=== PATIENT | male | born 1955 | race Caucasian/White ===

== ENCOUNTER → 2023-11-23 | Outpatient (CLI) | payer MEDICARE, OTHER, SELFPAY ==
[2023-11-23 10:35] LABS: Mucous, Urine 0 SEEN /hpf (<or=2+); Squamous Epithelial Cells - UA 0 SEEN /hpf (0-5)
[2023-11-23 10:48] LABS: Glucose, Dipstick Normal (Normal); Ketone-Dipstick 5 mg/dl (Negative); Leukocyte Esterase-Dipstick 100 /ul (Negative); Nitrite-Dipstick Positive (Negative); Occult Blood-Urine 250 /ul (Negative); Protein-Dipstick 500 mg/dl (Negative); Urine Bilirubin Dipstick Negative (Negative); Urine Clarity Cloudy (Clear); Urine Urobilinogen Normal (Normal); Urine pH 6.5 (5.0 - 8.0)
[2023-11-23 10:50] LABS: Color, Urine SEE COMMENT BELOW (Yellow)
[2023-11-23 10:58] LABS: Bacteria 1+ /hpf (None Seen); Red Blood Cells-Urine > 100 SEEN /hpf (0-5); White Blood Cells 10-25 SEEN /hpf (0-5)
== END | disposition home or self-care (01) ==
LOC: LABSPEC 10:09
PROVIDERS: Referring Provider Physician Assistant; Visit Provider Physician Assistant
DX: R30.0 Dysuria (principal)
CPT/HCPCS: 81001; 87086

== ENCOUNTER 2024-01-31 17:12 | Observation (INO) | payer MEDICARE, OTHER, SELFPAY ==
[2024-01-31] VITALS (12 sets, daily range): BP systolic 98–135; BP diastolic 50–79; PULSE 42–63; RESP 12–16; TEMP 36.1–37; O2SAT 97–100; BMI 23.4
--- NOTE | 2024-01-31 10:53 | EKG12_ITS ---
Test Reason : PRE OP Blood Pressure : / mmHG Vent. Rate : 060 BPM Atrial Rate : 060 BPM P-R Int : 170 ms QRS Dur : 074 ms QT Int : 410 ms P-R-T Axes : 018 -30 028 degrees QTc Int : 410 ms Sinus rhythm with Premature supraventricular complexes and with occasional Premature ventricular comp lexes Left axis deviation Abnormal ECG No previous ECGs available Confirmed by Sarabjit De León ([id number]), research editor HI MOORE ([id number]) on 01/31/2024 2:00:34 PM Referred By: Pankaj Lou Confirmed By:Sarabjit De León
--- NOTE | 2024-01-31 12:50 | BLB_PTH ---
PATIENT: BETHANY WILKINS LOC: [facility] U#:[id number] AGE/SX: 68/M ROOM: [facility] RE01/31/[address]: Dr. 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 See cancer summary in the comment section. 02/02/2024 COMMENT BLADDER CANCER (TUR) SUMMARY Procedure: Transurethral resection of bladder tumor (TURBT) Tumor site: Not specified Histologic type: Papillary urothelial carcinoma, invasive Associated epithelial lesions: None identified Histologic grade: High grade Tumor configuration: Papillary and invasive Muscularis propria presence: muscularis propria (detrusor muscle), present and free of tumor Lymph-vascular invasion: Not identified Tumor extension: Tumor invades the lamina propria (subepithelial connective tissue). Additional pathologic findings: Chronic inflammation PATHOLOGIC STAGE: pPT1 pNx pMx The above summary is in compliance with [employer] [place] [employer] (CAP) Cancer Protocols Checklist and [place] Joint Committee on Cancer (AJCC), Staging Manual, 8th Ed. Case has been reviewed in consultation with Dr. Christie who concurs with the above diagnosis. IDC:AM MICROSCOPIC DESCRIPTION Slides are reviewed. GROSS DESCRIPTION Received in fixative is one container labeled with the patient's name and designated Bladder tumor. The specimen consists of multiple fragments of restrepo soft tissue mixed with blood clot that measuring in aggregate 12.0 x 10.0 x 3.5 cm. A few fragments of stones are also noted. Head Up Operator tissue is submitted in fifteen cassettes. 02/01/2024 TC: 0 CPT:67754
--- NOTE | 2024-01-31 13:12 | PCM.PRE.AN2 ---
ASA Classification* ASA Classification ASA Classification: 2 Assessment & Plan Anesthesia* Anesthesia Assessment Anesthesia Assessment: Discussed sedation and/or anesthesia options, risks, benefits, and alternatives with patient/parents/legal guardian/POA. Questions invited. The patient/parents/legal guardian/POA seems to understand and agrees to proceed with anesthesia plan. Reviewed the physical assessment, medical history, allergy history and patient home medications list prior to surgery/procedure/anesthetic and documented any changes. Performed airway and anesthesia risk assessments. Anesthesia Type Anesthesia Type: General History Source History Obtained from:: Patient and Chart Anesthesia Focused Assessment* Temperature: 98.6 F Pulse Rate: 63 Blood Pressure: 135/73 Respiratory Rate: 12 Pulse Ox: 100 Oxygen Delivery Method: Room Air Airway Assessment Mouth opens: >3 cm Mallampati Score: I Teeth Condition: Caps/Crowns (Patient has several crowns they are tight.) Neck Range of motion (ROM): Full ROM Pertinent Findings EKG Pertinent Findings:: January 31, 2024. Sinus rhythm with premature supraventricular complexes and occasional PVCs. Left axis deviation. 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 When Was Last Pacemaker Check QUESTION #4 FULL TEXT: You/Your Family Experience fever (hyperthermia) with Anesthesia Last Oral Intake Last Oral intake: Last Oral Intake NPO since 19:00 01/31/24 10:58 Meds taken in AM with sips of No 01/31/24 10:58 water? Meds patient instructed to take am of surgery PONV PONV - hydrogen power plant manager: PONV - hydrogen power plant manager Female No 01/30/24 13:27 HX of Motion Sickness Yes 01/30/24 13:27 HX of N/V After Surgery No 01/30/24 13:27 Non-Smoker Yes 01/30/24 13:27 Duration of Surgery greater Yes 01/30/24 13:27 than 60 minutes Number of Risk Factors 3 01/30/24 13:27 PONV Score Moderate Risk 01/30/24 13:27 Height & Weight Height & Weight: Anesthesia: Height & Weight Height 5 ft 5 in 01/31/24 10:58 Weight: 64 kg 01/31/24 10:58 Body Mass Index (BMI) 23.4 01/31/24 10:58 Respiratory Assessment Respiratory Assessment - hydrogen power plant manager: Respiratory Tract Infection Hx - hydrogen power plant manager Hx Respiratory Tract Infection No 01/30/24 13:27 STOP Sleep Apnea STOP Sleep Apnea - hydrogen power plant manager: STOP Sleep Apnea - hydrogen power plant manager Hx Hypertension No 01/30/24 13:27 Hx Sleep Apnea No 01/30/24 13:27 CPAP BIPAP Do you snore loudly (louder Yes 01/30/24 13:27 than talking or can be heard Do you often feel tired/ No 01/30/24 13:27 fatigued/ sleepy during daytime? Has anyone observed you stop No 01/30/24 13:27 breathing during sleep? STOP Results Negative 01/30/24 13:27 QUESTION #5 FULL TEXT : Do you snore loudly (louder than talking or can be heard through closed doors)? 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 Specify any problems Hx of Preganancy in last 3 N/A 01/30/24 13:27 Months Nurse Filling Out Transfusion DSCHRIBER 01/30/24 13:27 & Questions: Date: 01/30/24 01/30/24 13:27 Time: 13:28 01/30/24 13:27 Patient unable to answer at this time (ie. confused, unrespo /Reproduction History /Reproductive History - hydrogen power plant manager: /Reproductive Hx- hydrogen power plant manager Hx Now No 01/30/24 13:27 Gestational Age (in weeks): EDC: Hx Hx Para Hx Section SAB No 01/30/24 13:27 Active Medications Active Medications: Current Medications Generic Name Dose Route Start Last Admin Trade Name Freq PRN Reason Stop Dose Admin Lactated Ringer's 1,000 mls @ 15 mls/hr 01/31/24 10:45 IV 02/06/24 00:04 .Q48H ALONDRA Protocol PFSH Medical History Loss of hearing Wears glasses Gout Bladder disease Injury of head and neck Leg cramps Non-smoker Home Medications ?Medication ?Instructions ?Recorded ?Last Taken ?Type NK 01/30/24 Unknown History Allergy/AdvReac Type Severity Reaction Status Date / Time No Known Allergies Allergy Verified 01/31/24 10:56 Surgical History Hx of peritonsillar abscess drainage Hx of tonsillectomy Social History Smoking Status: Never smoker Review of Systems (Anesthesia) ROS Narrative System reviewed and no additional complaints, except as documented.
[2024-01-31] MEDS: Cefazolin 2 GM in Syringe IV (14:34)
--- NOTE | 2024-01-31 17:13 | PCM.HP.STD ---
HPI - General General Date of Service: 01/31/24 Chief Complaint: Bladder cancer HPI Narrative BETHANY WILKINS, is a 68 M who presents for resection of a large bladder cancer occupying almost the entire inside of the bladder. PFSH Medical History Loss of hearing Wears glasses Gout Bladder disease Injury of head and neck Leg cramps Non-smoker Home Medications ?Medication ?Instructions ?Recorded ?Last Taken ?Type NK 01/30/24 Unknown History ciprofloxacin HCl 500 mg tablet 500 mg PO BID #14 tabs 01/31/24 Unknown Rx (Cipro) oxycodone 5 mg tablet 5 mg PO Q6H PRN pain 7 days #14 01/31/24 Unknown Rx tabs Allergy/AdvReac Type Severity Reaction Status Date / Time No Known Allergies Allergy Verified 01/31/24 10:56 Surgical History Hx of peritonsillar abscess drainage Hx of tonsillectomy Social History Smoking Status: Never smoker Vital Signs Vital Signs Vital Signs: 01/31/24 10:58 01/31/24 10:58 01/31/24 13:23 Temperature 98.6 F 98.6 F Temperature Source Temporal Pulse Rate 63 63 Respiratory Rate 12 12 Respiratory Pattern Normal Blood Pressure 135/73 H 135/73 H Blood Pressure Mean 93 Blood Pressure Source Monitor Blood Pressure Position Semi-Fowlers Blood Pressure Location Left Arm Pulse Ox 100 100 Oxygen Delivery Method Room Air Room Air Weight Weight: 64 kg Body Mass Index (BMI) 23.4
--- NOTE | 2024-01-31 17:13 | PCM.DC ---
Discharge Instructions Diet Discharge Diet: No restrictions Activity Discharge Activity: Return to Normal Activity and May Not Drive (while taking narcotic pain medications.) Dressing / Incision Call your doctor if you observe: Fever of 101 or Higher Catheter: Fung to leg bag and Fung to large bag Drain: Coulter Follow Up Care Please Follow Up With: Pankaj Lou MD When: Call [phone] for an appointment Test Results: Test results from this visit will be discussed in further detail at your follow-up appointment, if applicable. Discharge Plan Admission Primary Reason for Your Visit: Large bladder mass Attending Provider: Pankaj Lou Primary Care Provider: Seth Lozano NP Instructions Patient Instructions: Bladder Cancer TUR Print Language: [place] Discharge Orders/Prescriptions Prescriptions: New ciprofloxacin HCl [Cipro] 500 mg tablet 500 mg PO BID Qty: 14 0RF oxycodone 5 mg tablet 5 mg PO Q6H PRN (Reason: pain) 7 Days Qty: 14 0RF No Action NK Referrals / Follow Up: Pankaj Lou MD [Med Staff - Active Staff] - Seth Lozano NP, CLAIM REVIEW MEDICAL DIRECTOR-C [Primary Care Provider] - Disposition Disposition (needs filled in before D/C Order can be placed): Home, Self Care
--- NOTE | 2024-01-31 17:19 | OP.PCM_ITS ---
Report of Operation Date of Procedure: 01/31/24 Pre-Operative Diagnosis: Very large bladder tumor greater than 5 cm in size occ upying most of the inside of the bladder Post-Operative Diagnosis: The same Surgery/Procedure Performed:: Transurethral resection of extensively large tumor in the bladder Description of Surgical Findings:: This is a 68-year-old male who states he is just recently started having some bleeding but he is again extremely large tumor in his bladder seen on ultrasound today organ had attempted do a complete resection of this tumor I explained to the patient may not be possible to do a complete resection this might be an invasive tumor he might need multiple procedures and this may not be curative for his cancer but organ to proceed with an extensive resection of the bladder tumor organ attempted due for resection. 68-year-old male was taken back to the operating room and a smooth induction of general anesthesia he is placed in dorsolithotomy position. The penis and testicles were prepped and draped in usual sterile fashion I went into the bladder with a 26 [place] continuous-flow resectoscope again it was just like a storm of tumor all around the resectoscope very difficult to even see the edge of where to start resecting finally on the floor I got started on the edge and started resecting toward the midline as I was resecting the tumor everything was going fairly well but then as I got deeper and deeper into the tumor then encountered some significant bleeding and started having heavy bleeding during the resection this made the resection extremely more difficult as a Resecting at I Used Irrigation and Also Use Suction on the Resectoscope to Help with the Visualization but Again We Had Significant Bleeding during the Resection Making It Very Difficult Took a Long Time to Do the Resection. But at the End I Think I Got like 90% of the Tumor out There Is Still May Be Some Tumor Still Left in the Bladder Difficult to Tell If I Did a Complete Resection Could Be Muscle- Invasive Is Difficult to Tell There Was No Way to Identify the Left Ureteral Orifice Because It Was Completely Involved the Right Ureter Orifice Was Also Hard to See. I Then Cauterized Extensively I Used the Button Took a Long Time to Get Hemostasis to Make Sure That There Was Good Hemostasis and That the End of the Resection Then Went to the 24 [place] Catheter in the Bladder and Continuous Bladder Irrigation He Will Be Kept in the Hospital Overnight for Continuous Irrigation Again a Very Long Resection Time Very Long Cauterization Time in Order to Control the Bleeding and We Will Check His Hematocrit and PACU. Surgeon: Pankaj Lou Type of Anesthesia: General Specimen's removed: bladder tumor large Drains: [address] Estimated Blood Loss (mL): 500 Procedure Start Time: 14:34 Procedure Stop Time: 17:19 Admit VTE Documentation VTE Present on Admission: No VTE Mechan Device Prophylaxis: SCD's VTE Pharm Prophylaxis ordered?: No
--- NOTE | 2024-01-31 17:21 | PCM.POST.ANE ---
Anesthesia: Postop Eval I Current Vital Signs Temperature: 97 F Pulse Rate: 63 Blood Pressure: 100/75 Respiratory Rate: 14 Pulse Ox: 98 Oxygen Delivery Method: Room Air Assessment Airway patent: Yes Spontaneous unlabored respirations: Yes Mental status: Awake and Calm nausea: No Vomiting: No Anesthesia Complication: No Fluid Hydration Crystalloid volume administer (ml): 2,200 Total IV fluid infused: 2,200 Progress Note Anesthesia document: Postop Eval 1 completed: Yes
[2024-01-31 18:03] LABS: Anion Gap 6 (5-15); BUN 19 mg/dL (7-18); BUN/Creat Ratio 18.1 RATIO (10-20); Calcium,Total 8.5 mg/dL (8.5-10.1); Chloride 111 mmol/L (98-107); Creatinine, Serum 1.05 mg/dL (0.70-1.30); EST Glomerular Filtration Rate 75 mL/min (>60); Est Glom Filt Rate - Afr Amer 90 mL/min (>60); Estimated Creatinine Clearance 58.57 ml/min; Glucose 136 mg/dL (74-106); Hemoglobin 12.6 g/dL (13.0-16.5); Mean Corpuscular Hgb 31.5 pg (27.0-32.0); Mean Platelet Vol. 9.5 fl (6.2-12.0); Platelet Count 230 K/mm3 (150-450); Potassium 3.7 mmol/L (3.5-5.1); RBC Distribution Width CV 12.9 % (11.6-14.6); RBC Distribution Width SD 42.5 fl (35.1-43.9); Sodium Level 141 mmol/L (136-145); White Blood Count 8.6 K/mm3 (4.4-11.0)
[2024-01-31] MEDS: Acetaminophen 325 MG Tablet 650 MG PO (19:49)
[2024-01-31] MEDS: Ciprofloxacin 400 MG/200 ML BAG 200 MG IV (21:51)
[2024-01-31] MEDS: Docusate Sodium 100 MG Capsule 200 MG PO (21:51)
--- NOTE | 2024-02-01 01:32 | POSTOPAN2_ITS ---
Anesthesia Postop Eval I Sum Postop Eval Completion status Anesthesia document: Postop Eval 1 completed: Yes Anesthesia Postop Eval I Summary Anesthesia Postop Eval I Summary: Anesthesia Postop Eval I: Assessment Summary Airway patent Yes 01/31/24 17:22 [email or web address] Spontaneous unlabored Yes 01/31/24 17:22 [email or web address] respirations Mental status Awake,Calm 01/31/24 17:22 [email or web address] nausea No 01/31/24 17:22 [email or web address] Vomiting No 01/31/24 17:22 [email or web address] Anesthesia Postop Eval I: Fluid Summary Crystalloid volume administer 2,200 01/31/24 17:22 [email or web address] (ml) Colloids volume administered ( ml) Blood Product volume administered (ml) Total IV fluid infused 2,200 01/31/24 17:22 [email or web address] Anesthesia Postop Eval I: Summary Notes Anesthesia Complication No 01/31/24 17:22 [email or web address] Anesthesia Complication Comment: Post-operative progress note Anesthesia: Postop Eval II Evaluation Mental status: Awake and Calm Pain Level: 1 nausea: No Vomiting: No Complications Anesthesia Complication: No
--- NOTE | 2024-02-01 01:32 | PCM.POSTANE2 ---
Anesthesia Postop Eval I Sum Postop Eval Completion status Anesthesia document: Postop Eval 1 completed: Yes Anesthesia Postop Eval I Summary Anesthesia Postop Eval I Summary: Anesthesia Postop Eval I: Assessment Summary Airway patent Yes 01/31/24 17:22 [email or web address] Spontaneous unlabored Yes 01/31/24 17:22 [email or web address] [email or web address] respirations Mental status Awake,Calm 01/31/24 17:22 [email or web address] nausea No 01/31/24 17:22 [email or web address] Vomiting No 01/31/24 17:22 [email or web address] Anesthesia Postop Eval I: Fluid Summary Crystalloid volume administer 2,200 01/31/24 17:22 [email or web address] (ml) Colloids volume administered ( ml) Blood Product volume administered (ml) Total IV fluid infused 2,200 01/31/24 17:22 [email or web address] Anesthesia Postop Eval I: Summary Notes Anesthesia Complication No 01/31/24 17:22 [email or web address] Anesthesia Complication Comment: Post-operative progress note Anesthesia: Postop Eval II Evaluation Mental status: Awake and Calm Pain Level: 1 nausea: No Vomiting: No Complications Anesthesia Complication: No
[2024-02-01] MEDS: Acetaminophen 325 MG Tablet 650 MG PO (02:55)
[2024-02-01 03:14] VITALS: BP 104/60; PULSE 57; RESP 16; TEMP 36.3; O2SAT 99
[2024-02-01 06:44] LABS: Hematocrit 31.7 % (40-54); Hemoglobin 11.2 g/dL (13.0-16.5); Mean Corp Hgb Conc 35.3 g/dL (32-36); Mean Corpuscular Hgb 31.5 pg (27.0-32.0); Mean Corpuscular Volume 89.3 fL (80-94); Mean Platelet Vol. 9.6 fl (6.2-12.0); Platelet Count 215 K/mm3 (150-450); RBC Distribution Width CV 13.1 % (11.6-14.6); RBC Distribution Width SD 43.1 fl (35.1-43.9); Red Blood Count 3.55 M/mm3 (4.6-6.2); White Blood Count 11.8 K/mm3 (4.4-11.0)
[2024-02-01 07:18] LABS: Anion Gap 6 (5-15); BUN 25 mg/dL (7-18); BUN/Creat Ratio 26.3 RATIO (10-20); Calcium,Total 8.5 mg/dL (8.5-10.1); Chloride 111 mmol/L (98-107); Creatinine, Serum 0.95 mg/dL (0.70-1.30); EST Glomerular Filtration Rate 83 mL/min (>60); Est Glom Filt Rate - Afr Amer 101 mL/min (>60); Estimated Creatinine Clearance 64.74 ml/min; Glucose 122 mg/dL (74-106); Potassium 4.2 mmol/L (3.5-5.1); Sodium Level 140 mmol/L (136-145)
[2024-02-01] MEDS: Docusate Sodium 100 MG Capsule 200 MG PO (07:56)
[2024-02-01] MEDS: 0.9% Saline Lock 10 ML Syringe IV (09:58)
[2024-02-01] MEDS: Ciprofloxacin 400 MG/200 ML BAG 200 MG IV (09:58)
[2024-02-01 14:34] VITALS: BP 117/70; PULSE 64; RESP 18; TEMP 36.7; O2SAT 99
--- NOTE | 2024-02-01 15:28 | CASEMGMT ---
Addendum entered by Moy Farooq 02/01/24 15:35: Per , they have scheduled an appt with Dr Lou for 02/14 @ 0900. This was added to pt's discharge plan. Original Note: HOSEA GONZALEZ note: HOSEA GONZALEZ to room. Pt resting in bed, @ bedside. Pt states he has not had education on FC yet, but is willing to learn. RNSimona, aware and will provide education. Pt states he has not been OOB today yet. He was made aware someone would be in to assist him w/getting up. Simona aware of same as well. Pt states he is independent @ home. Pt and deny having other discharge needs/concerns. Kalina ELLIOTT RN, CM
--- NOTE | 2024-02-01 15:46 | CASEMGMT ---
Met with patient to complete RUBIO form. RUBIO form explained to patient who voiced understanding and signed form. Original form placed in pt?s chart and copy provided to patient. Bree Young, Discharge Planning Asst
--- NOTE | 2024-02-01 17:51 | PCM.PN.GU ---
Subjective Subjective s/p resection of a very difficult and large tumor from his bladder bleeding has stopped home with cage follow up in my office to remove cage Objective Data Objective Data Vital Signs: Vital Signs Temp Pulse Resp BP Pulse Ox O2 Del Method 98.1 F 64 18 117/70 99 Room Air 02/01/24 14:34 02/01/24 14:34 02/01/24 14:34 02/01/24 14:34 02/01/24 14:34 02/01/24 14:34 Oxygen Delivery Method Room Air Weight: 64 kg Body Mass Index (BMI) 23.4 Intake & Output: Intake and Output for Last 24 Hours 01/30/24 01/31/24 02/01/24 23:59 23:59 23:59 Intake Total 460 / 460 440 / 440 Output Total 6400 / 6400 2100 / 2100 Balance -5940 / -5940 -1660 / -1660 Lab / Micro Data 02/01/24 06:37 02/01/24 06:37 Labs: Laboratory Results - last 24 hr 01/31/24 17:27: WBC 8.6, RBC 4.00 L, Hgb 12.6 L, Hct 36.0 L, MCV 90.0, MCH 31.5, MCHC 35.0, RDW Std Deviation 42.5, RDW Coeff of Lori 12.9, Plt Count 230, MPV 9.5, Sodium 141, Potassium 3.7, Chloride 111 H, Carbon Dioxide 24.0, Anion Gap 6, BUN 19 H, Creatinine 1.05, Estim Creat Clear Calc 58.57, Est GFR (MDRD) Af Amer 90, Est GFR (MDRD) Non-Af 75, BUN/Creatinine Ratio 18.1, Glucose 136 H, Calcium 8.5 02/01/24 06:37: WBC 11.8 H, RBC 3.55 L, Hgb 11.2 L, Hct 31.7 L, MCV 89.3, MCH 31.5, MCHC 35.3, RDW Std Deviation 43.1, RDW Coeff of Lori 13.1, Plt Count 215, MPV 9.6, Sodium 140, Potassium 4.2, Chloride 111 H, Carbon Dioxide 23.0, Anion Gap 6, BUN 25 H, Creatinine 0.95, Estim Creat Clear Calc 64.74, Est GFR (MDRD) Af Amer 101, Est GFR (MDRD) Non-Af 83, BUN/Creatinine Ratio 26.3 H, Glucose 122 H, Calcium 8.5
== END 2024-02-01 18:23 | disposition home or self-care (01) ==
LOC: SDC 17:41 → MS3 17:41
PROVIDERS: Admitting Provider Urology; PCP Nurse Practitioner Family; Referring Provider Urology; Visit Provider Urology
PROC: 0TBB8ZZ Excision of Bladder, Via Natural or Artificial Opening Endoscopic (ICD-10-PCS; CPT 52240; principal; 2024-01-31 12:40)
DX: C67.8 Malignant neoplasm of overlapping sites of bladder (principal); N13.39 Other hydronephrosis; R94.31 Abnormal electrocardiogram [ECG] [EKG]; I49.1 Atrial premature depolarization
CPT/HCPCS: 52240; 00912; 36415; 80048; 85027; 88307; 93005; 94668; 96365; 96366; 99221; J7120; A4216; G0378; J0744; J2405

== ENCOUNTER 2024-03-13 09:25 | Day surgery (SDC) | payer MEDICARE, OTHER, SELFPAY ==
[2024-03-13] VITALS (11 sets, daily range): BP systolic 122–151; BP diastolic 73–81; PULSE 50–70; RESP 16–18; TEMP 36.2–36.8; O2SAT 98–100; BMI 23.1
--- NOTE | 2024-03-13 | BLB_PTH ---
PATIENT: BETHANY WILKINS LOC: [facility] [place] U#:[id number] AGE/SX: 68/M ROOM: RE03/13/[address]: Dr. Pankaj Lou MD : 1955 BED: DIS: 03/13/2024 SPEC #: [id number] RECD: 03/13/24 13:42 STATUS: CLARA RECody #: [id number] RADHA: 03/13/24 00:[address]: Pankaj Lou DEPT: SURGICAL PATHOLOGY RECD BY: Aditya Jesus ENTERED: 03/13/24 13:42 SP TYPE: TURB OTHR DR: Seth Lozano, PHYSIOTHERAPY PRACTICE MANAGER-C Tissues: Urinary bladder, NOS Procedures: Surgery Specimen Level V HEADER OPERATION: Transurethral resection bladder tumor PRE-OP DIAGNOSIS: Bladder cancer TISSUE SUBMITTED: Bladder tumor MICROSCOPIC DIAGNOSIS Urinary bladder tumor, transurethral resection: Invasive high grade urothelial carcinoma. See cancer template below. AM.mr 03/15/2024 COMMENT BLADDER CANCER (TUR) SUMMARY Procedure: Transurethral resection of bladder tumor (TURBT) Tumor site: Not specified Histologic type: Invasive High grade urothelial carcinoma Associated epithelial lesions: None identified Histologic grade: 3/3 (WHO high grade) Tumor configuration: Papillary and non-papillary Muscularis propria presence: Present and infiltrating by carcinoma Lymphvascular invasion: Not identified Tumor extension: Tumor invades into detrusor muscle. Additional pathologic findings: Extensive tumor cell necrosis. PATHOLOGIC STAGE: T2 Nx Mx The above summary is in compliance with [employer] [place] [employer] (CAP) Cancer Protocols Checklist and [place] [employer] Committee on Cancer (AJCC), Staging Manual, 8th Ed. MICROSCOPIC DESCRIPTION Slides are reviewed. GROSS DESCRIPTION Received in fixative is one container labeled with the patient's name and designated Bladder tumor. The specimen consists of multiple irregular and friable fragments of restrepo-pink soft tissue that in aggregate measure 5.0 x 4.0 x 0.6 cm. The specimen is submitted in its entirety in ten cassettes. AM. 03/13/2024 TC: 0 [facility]:[id number]
[2024-03-13] MEDS: MitoMYcin 40 MG in Syringe 1 EACH 2400 MG INSTILLAT (07:30)
--- NOTE | 2024-03-13 09:52 | PRE.ANES_ITS ---
ASA Classification* ASA Classification ASA Classification: 2 Assessment & Plan Anesthesia* Anesthesia Assessment Anesthesia Assessment: Discussed sedation and/or anesthesia options, risks, benefits, and alternatives with patient/parents/legal guardian/POA. Questions invited. The patient/parents/legal guardian/POA seems to understand and agrees to proceed with anesthesia plan. Reviewed the physical assessment, medical history, allergy history and patient home medications list prior to surgery/procedure/anesthetic and documented any changes. Performed airway and anesthesia risk assessments. Anesthesia Type Anesthesia Type: General Anesthesia Focused Assessment* Airway Assessment Mouth opens: >3 cm Mallampati Score: II Focused Labs Anesthesia Preop lab: CBC WBC 11.8 K/mm3 (4.4-11.0) H 02/01/24 06:37 RBC 3.55 M/mm3 (4.6-6.2) L 02/01/24 06:37 Hgb 11.2 g/dL (13.0-16.5) L 02/01/24 06:37 Hct 31.7 % (40-54) L 02/01/24 06:37 Plt Count 215 K/mm3 (150-450) 02/01/24 06:37 CHEMISTRY Potassium 4.2 mmol/L (3.5-5.1) 02/01/24 06:37 Sodium 140 mmol/L (136-145) 02/01/24 06:37 BUN 25 mg/dL (7-18) H 02/01/24 06:37 Creatinine 0.95 mg/dL (0.70-1.30) 02/01/24 06:37 Glucose 122 mg/dL (74-106) H 02/01/24 06:37 COAG Pre-Assessment Diagnosis/Proposed Procedure Planned Operative Procedure(s): TURBT LARGE MITOMYCIN C 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 When Was Last Pacemaker Check QUESTION #4 FULL TEXT: You/Your Family Experience fever (hyperthermia) with Anesthesia Last Oral Intake Last Oral intake: Last Oral Intake NPO since Meds taken in AM with sips of water? Meds patient instructed to take am of surgery PONV PONV - corporate sales manager: PONV - corporate sales manager Female No 02/28/24 13:51 HX of Motion Sickness Yes 02/28/24 13:51 HX of N/V After Surgery No 02/28/24 13:51 Non-Smoker Yes 02/28/24 13:51 Duration of Surgery greater Yes 02/28/24 13:51 than 60 minutes Number of Risk Factors 3 02/28/24 13:51 PONV Score Moderate Risk 02/28/24 13:51 Height & Weight Height & Weight: Anesthesia: Height & Weight Height 5 ft 5 in 01/31/24 18:37 Respiratory Assessment Respiratory Assessment - corporate sales manager: Respiratory Tract Infection Hx - corporate sales manager Hx Respiratory Tract Infection No 02/28/24 13:51 STOP Sleep Apnea STOP Sleep Apnea - corporate sales manager: STOP Sleep Apnea - corporate sales manager Hx Hypertension No 02/28/24 13:51 Hx Sleep Apnea No 02/28/24 13:51 CPAP BIPAP Do you snore loudly (louder No 02/28/24 13:51 than talking or can be heard Do you often feel tired/ No 02/28/24 13:51 fatigued/ sleepy during daytime? Has anyone observed you stop No 02/28/24 13:51 breathing during sleep? STOP Results Negative 02/28/24 13:51 QUESTION #5 FULL TEXT : Do you snore loudly (louder than talking or can be heard through closed doors)? Tobacco Use History Tobacco Use History - corporate sales manager: Tobacco Use History - corporate sales manager Tobacco Use Smoking Status Never smoker 02/28/24 13:51 Hx Tobacco Use No 02/28/24 13:51 Years Smoking Packs Smoked per Day Smoking Cessation Date was within the last 15 years Hx Smoking Cessation Date Hx Smoking Cessation Counseling Hematologic Medial History Hematologic Hx - corporate sales manager: Hematologic Medical Hx - crossing tender Hx of Blood Transfusion No 02/28/24 13:51 Hx of Transfusion in last 3 No 02/28/24 13:51 Months Date of Last Transfusion (if within last 3 months) Ever experience any problems No 02/28/24 13:51 with transfusion(s)? Specify any problems Hx of Preganancy in last 3 N/A 02/28/24 13:51 Months Nurse Filling Out Transfusion DSCHRIBER 02/28/24 13:51 & Questions: Date: 02/28/24 02/28/24 13:51 Time: 13:54 02/28/24 13:51 Patient unable to answer at this time (ie. confused, unrespo /Reproduction History /Reproductive History - corporate sales manager: /Reproductive Hx- corporate sales manager Hx Now No 02/28/24 13:51 Gestational Age (in weeks): EDC: Hx Hx Para Hx Section SAB No 02/28/24 13:51 Active Medications Active Medications: Current Medications Generic Name Dose Route Start Last Admin Trade Name Freq PRN Reason Stop Dose Admin Cefazolin Sodium 2 gm/ N/A 20 mls @ 400 mls/hr 03/13/24 12:55 IV 03/13/24 12:57 PREOP ONE Lactated Ringer's 1,000 mls @ 15 mls/hr 03/13/24 09:45 IV 03/18/24 23:04 .Q48H ALONDRA Protocol PFSH Medical History Loss of hearing Wears glasses Gout Bladder disease Injury of head and neck Leg cramps Non-smoker Home Medications ?Medication ?Instructions ?Recorded ?Last Taken ?Type tamsulosin 0.4 mg capsule 0.4 mg PO QHS 02/28/24 03/11/24 History Allergy/AdvReac Type Severity Reaction Status Date / Time No Known Allergies Allergy Verified 03/13/24 09:50 Surgical History History of transurethral resection of bladder tumor (TURBT) Hx of peritonsillar abscess drainage Hx of tonsillectomy Social History Smoking Status: Never smoker Review of Systems (Anesthesia) ROS Narrative System reviewed and no additional complaints, except as documented.
[2024-03-13] MEDS: Lactated Ringers 1,000 ML 15 ML IV (09:59)
--- NOTE | 2024-03-13 11:02 | PCM.HP.STD ---
HPI - General General Date of Service: 03/13/24 Chief Complaint: Bladder cancer HPI Narrative BETHANY WILKINS, is a 68 M who presents for a second stage reresection of bladder cancer had a very large tumor initially and we do another resection for this tumor PFSH Medical History Loss of hearing Wears glasses Gout Bladder disease Injury of head and neck Leg cramps Non-smoker Home Medications ?Medication ?Instructions ?Recorded ?Last Taken ?Type tamsulosin 0.4 mg capsule 0.4 mg PO QHS 02/28/24 03/11/24 History ciprofloxacin HCl 500 mg tablet 500 mg PO BID #10 tabs 03/13/24 Unknown Rx (Cipro) oxycodone 5 mg tablet 5 mg PO Q6H PRN pain 7 days #14 03/13/24 Unknown Rx tabs Allergy/AdvReac Type Severity Reaction Status Date / Time No Known Allergies Allergy Verified 03/13/24 09:50 Surgical History History of transurethral resection of bladder tumor (TURBT) Hx of peritonsillar abscess drainage Hx of tonsillectomy Social History Smoking Status: Never smoker Vital Signs Vital Signs Vital Signs: 03/13/24 09:52 03/13/24 09:52 Temperature 98.2 F Temperature Source Temporal Pulse Rate 70 Respiratory Rate 16 Respiratory Pattern Normal Blood Pressure 129/74 H Blood Pressure Mean 92 Blood Pressure Source Monitor Blood Pressure Position Sitting Blood Pressure Location Right Arm Pulse Ox 100 Oxygen Delivery Method Room Air Weight Weight: 63 kg Body Mass Index (BMI) 23.1
--- NOTE | 2024-03-13 11:03 | DCINST_ITS ---
Discharge Instructions Diet Discharge Diet: No restrictions, Light diet - advance as tolerated and Soft diet DC O2, CPAP, BIPAP needs Additional Home O2 Discharge instructions: No Dressing / Incision Discharge Activity: Return to Normal Activity Return to work on:: 03/18/24 May shower in (days): 1 Dressing / Incision Call your doctor if your incision/area has: Sudden Increased Bleeding Call your doctor if you observe: Uncontrolled pain Suture Line Care: Avoid Pulling/Pushing and Avoid Pinching/Bending Follow Up Care Please Follow Up With: Pankaj Lou MD When: 2 weeks Test Results: Test results from this visit will be discussed in further detail at your follow- up appointment, if applicable. Discharge Plan Admission Primary Reason for Your Visit: resection of bladder tumor Attending Provider: Pankaj Lou Primary Care Provider: Seth Lozano NP Instructions Print Language: Sami Discharge Orders/Prescriptions Prescriptions: New ciprofloxacin HCl [Cipro] 500 mg tablet 500 mg PO BID Qty: 10 0RF oxycodone 5 mg tablet 5 mg PO Q6H PRN (Reason: pain) 7 Days Qty: 14 0RF No Action tamsulosin 0.4 mg capsule 0.4 mg PO QHS Referrals / Follow Up: Pankaj Lou MD [Med Staff - Active Staff] - Seth Lozano NP, CONCRETE STONE FINISHING SUPERVISOR-C [Primary Care Provider] - Disposition Disposition (needs filled in before D/C Order can be placed): Home, Self Care
[2024-03-13] MEDS: Cefazolin 2 GM in Syringe IV (11:23)
--- NOTE | 2024-03-13 12:01 | PCM.OPRPT ---
Operative Report (Standard) Operative Information Surgery/Procedure Performed: Transurethral resection of a large bladder mass second resection Surgeon: Pankaj Lou Date of Procedure: 03/13/24 Procedure Start Time: Procedure Stop Time: : Pre-Operative Diagnosis: Large bladder mass appears invasive Post-Operative Diagnosis: Large bladder mass appears invasive Select all DRAINS/GRAFTS/IMPLANTS that apply: Drains Drain details: Temporary Fung catheter afterwards Type of Anesthesia: General Special Medications: Mitomycin-C instillation Estimated Blood Loss: None Specimen collected: Yes Description of specimen(s) removed: Bladder tumor fragments Description of surgery: Patient was taken back to the operating room, this is a 68-year-old male who has a history of gross hematuria for a long time and finally came in for medical care spine to have a very large tumor in his bladder I did initial resection a few weeks ago this is a very difficult resection had a lot of bleeding during this time so I knew that I did not get complete resection also I knew that I did not get deep enough into the muscle. On initial resection it was considered a high-grade T1 disease and the pathology report said no invasion of the muscle I would suspect that this might not be accurate. So today working to come back and do a reresection Patient was taken back to the operating room at this with induction of anesthesia he was placed upon on the table in the bladder with a 26 [place] continuous-flow resectoscope entire length the urethra was clear the sphincter was clear got inside the bladder prostate was slightly enlarged and I immediately in the posterior wall of the bladder there was a very ugly looking mass still in the back of the bladder which was look deep into the muscle I started resecting this mass it looks like an invasive tumor into the muscle resected quite deep got a lot of tissue out. I then cauterized extensively certainly was not a complete resection there is no way got all this tumor out this look like a muscle invasive tumor I am going to refer him out for a second opinion but I think he probably would need aggressive treatment to control his cancer. I let his know the findings he was given chemo treatment afterwards in the bladder and he will go home today after he urinates. Tumor sizes very large about 5 x 5 x 5 cm and posterior wall the bladder Surgical Findings: In the posterior aspect of the bladder he still had a very large invasive looking tumor that looks like is going deep into the muscle the bladder resected fairly deep Level Vial Inspector And Tester mothers helper: No Complications Complications: No Admit VTE Documentation VTE Present on Admission: No VTE Mechan Device Prophylaxis: SCD's VTE Pharm Prophylaxis ordered?: No
--- NOTE | 2024-03-13 12:12 | PCM.POST.ANE ---
Anesthesia: Postop Eval I Current Vital Signs Temperature: 97.8 F Pulse Rate: 56 Blood Pressure: 134/79 Respiratory Rate: 16 Pulse Ox: 100 Oxygen Delivery Method: Room Air Assessment Airway patent: Yes Spontaneous unlabored respirations: Yes Mental status: Awake and Calm nausea: No Vomiting: No Anesthesia Complication: No Fluid Hydration Crystalloid volume administer (ml): 700 Total IV fluid infused: 700 Progress Note Anesthesia document: Postop Eval 1 completed: Yes
[2024-03-13] MEDS: Ketorolac 15 MG/ML Vial IV (12:27)
--- NOTE | 2024-03-13 12:42 | POSTOPAN2_ITS ---
Anesthesia Postop Eval I Sum Postop Eval Completion status Anesthesia document: Postop Eval 1 completed: Yes Anesthesia Postop Eval I Summary Anesthesia Postop Eval I Summary: Anesthesia Postop Eval I: Assessment Summary Airway patent Yes 03/13/24 12:13 DATA COMMUNICATIONS ENGINEER.GDOTT Spontaneous unlabored Yes 03/13/24 12:13 DATA COMMUNICATIONS ENGINEER.GDOTT respirations Mental status Awake,Calm 03/13/24 12:13 DATA COMMUNICATIONS ENGINEER.GDOTT nausea No 03/13/24 12:13 DATA COMMUNICATIONS ENGINEER.GDOTT Vomiting No 03/13/24 12:13 DATA COMMUNICATIONS ENGINEER.GDOTT Anesthesia Postop Eval I: Fluid Summary Crystalloid volume administer 700 03/13/24 12:13 DATA COMMUNICATIONS ENGINEER.GDOTT (ml) Colloids volume administered ( ml) Blood Product volume administered (ml) Total IV fluid infused 700 03/13/24 12:13 DATA COMMUNICATIONS ENGINEER.GDOTT Anesthesia Postop Eval I: Summary Notes Anesthesia Complication No 03/13/24 12:13 DATA COMMUNICATIONS ENGINEER.GDOTT Anesthesia Complication Comment: Post-operative progress note Anesthesia: Postop Eval II Evaluation Mental status: Awake Pain Level: 0 nausea: No Vomiting: No
--- NOTE | 2024-03-13 12:42 | PCM.POSTANE2 ---
Anesthesia Postop Eval I Sum Postop Eval Completion status Anesthesia document: Postop Eval 1 completed: Yes Anesthesia Postop Eval I Summary Anesthesia Postop Eval I Summary: Anesthesia Postop Eval I: Assessment Summary Airway patent Yes 03/13/24 12:13 WORKFORCE SERVICES REPRESENTATIVE.GDOTT Spontaneous unlabored Yes 03/13/24 12:13 WORKFORCE SERVICES REPRESENTATIVE.GDOTT respirations Mental status Awake,Calm 03/13/24 12:13 WORKFORCE SERVICES REPRESENTATIVE.GDOTT nausea No 03/13/24 12:13 WORKFORCE SERVICES REPRESENTATIVE.GDOTT Vomiting No 03/13/24 12:13 WORKFORCE SERVICES REPRESENTATIVE.GDOTT Anesthesia Postop Eval I: Fluid Summary Crystalloid volume administer 700 03/13/24 12:13 WORKFORCE SERVICES REPRESENTATIVE.GDOTT (ml) Colloids volume administered ( ml) Blood Product volume administered (ml) Total IV fluid infused 700 03/13/24 12:13 WORKFORCE SERVICES REPRESENTATIVE.GDOTT Anesthesia Postop Eval I: Summary Notes Anesthesia Complication No 03/13/24 12:13 WORKFORCE SERVICES REPRESENTATIVE.GDOTT Anesthesia Complication Comment: Post-operative progress note Anesthesia: Postop Eval II Evaluation Mental status: Awake Pain Level: 0 nausea: No Vomiting: No
--- NOTE | 2024-03-13 13:07 | SUR.PHASEI ---
cage catheter unclamped at 1245. cage removed at 1255.
== END 2024-03-13 15:23 | disposition home or self-care (01) ==
LOC: SDC 09:25 → AC 09:26
PROVIDERS: PCP Nurse Practitioner Family; Referring Provider Urology; Visit Provider Urology
PROC: 0T5B8ZZ Destruction of Bladder, Via Natural or Artificial Opening Endoscopic (ICD-10-PCS; CPT 51720; principal; 2024-03-13 11:15)
DX: C67.9 Malignant neoplasm of bladder, unspecified (principal)
CPT/HCPCS: 52240; 00912; 88307; J7120; J9280; J2405

== ENCOUNTER → 2024-04-11 | Outpatient (CLI) | payer MEDICARE, OTHER, SELFPAY ==
--- NOTE | 2024-04-11 08:16 | CT_ITS ---
STUDY: CT CHEST, ABDOMEN T PELVIS WITH CONTRAST REASON FOR EXAM: Male, 68 years old. STAGING-BLADDER CA RADIATION DOSAGE (If Supplied By Facility): CTDIvol = ( 11.68 ) mGy, DLP = ( 1407.33 ) mGycm TECHNIQUE: Transaxial imaging was performed following intravenous administration of IV 100mL Isovue-300. Individualized dose optimization techniques were used for this CT. COMPARISON: No relevant priors. FINDINGS: CHEST Mild bilateral apical scarring. No noncalcified nodule or mass. There is no demonstrated pleural abnormality. Normal heart and pericardium. Normal mediastinum. Normal hilar regions. Normal unenhanced pulmonary arteries. Normal aorta arch and descending thoracic aorta. Normal osseous structures. There is no demonstrated abnormality of the visualized upper abdomen. ABDOMEN The visualized lung bases are unremarkable. The visualized portions of the heart are within normal limits. Normal liver. Normal gallbladder and extrahepatic biliary system. Normal spleen. Normal pancreas. Normal bilateral adrenal glands. Normal right kidney. Normal left kidney. Normal visualized stomach. Normal small intestine. Normal colon. The appendix is visualized and appears normal. Normal abdominal aorta. Normal inferior vena cava. Normal retroperitoneum. Normal abdominal wall. 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 5 mm of anterolisthesis of L5 on S1 consistent with grade 1 spondylolisthesis. PELVIS Irregular wall thickening of the left side of the bladder consistent with known bladder cancer. Normal visualized small intestine. Normal visualized colon. There is no pelvic fluid. There is no pelvic lymphadenopathy or mass lesion. Normal visualized pelvic arteries. Normal abdominal wall. Normal osseous structures. CT/CT Chest, Abd, Pel w/Contrast IMPRESSION: Known bladder cancer the left side of the bladder without ureteral obstruction, lymphadenopathy, or distant metastasis. Electronically Signed: Seth Beckford MD at 12:07 [facility] ,
== END | disposition home or self-care (01) ==
LOC: CT 08:13
PROVIDERS: PCP Nurse Practitioner Family; Referring Provider Internal Medicine Medical Oncology; Visit Provider Internal Medicine Medical Oncology
DX: C67.8 Malignant neoplasm of overlapping sites of bladder (principal)
CPT/HCPCS: 71260; 74177; Q9967

== ENCOUNTER → 2024-04-30 | Outpatient (CLI) | payer MEDICARE, OTHER, SELFPAY ==
[2024-04-30 11:31] LABS: Platelet Count 226 K/mm3 (150-450)
[2024-04-30 11:42] LABS: International Normalized Ratio 0.9; Prothrombin Time (Protime)PT. 12.6 SECONDS (11.7-14.9)
== END | disposition home or self-care (01) ==
LOC: PAVLAB 11:15
PROVIDERS: PCP Nurse Practitioner Family; Referring Provider Internal Medicine Critical Care Medicine; Visit Provider Internal Medicine Critical Care Medicine
DX: R94.2 Abnormal results of pulmonary function studies (principal)
CPT/HCPCS: 36415; 85049; 85610

== ENCOUNTER 2024-05-10 09:58 | Day surgery (SDC) | payer MEDICARE, OTHER, SELFPAY ==
--- NOTE | 2024-05-07 09:29 | PAT.ANE_ITS ---
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 When Was Last Pacemaker Check QUESTION #4 FULL TEXT: You/Your Family Experience fever (hyperthermia) with Anesthesia Last Oral Intake Last Oral intake: Last Oral Intake NPO since Meds taken in AM with sips of water? Meds patient instructed to take am of surgery PONV PONV - bread distributor: PONV - bread distributor Female No 05/07/24 09:07 HX of Motion Sickness No 05/07/24 09:07 HX of N/V After Surgery No 05/07/24 09:07 Non-Smoker Yes 05/07/24 09:07 Duration of Surgery greater No 05/07/24 09:07 than 60 minutes Number of Risk Factors 1 05/07/24 09:07 PONV Score Low Risk 05/07/24 09:07 Height & Weight Height & Weight: Anesthesia: Height & Weight Height 5 ft 5 in 04/30/24 09:21 Respiratory Assessment Respiratory Assessment - bread distributor: Respiratory Tract Infection Hx - bread distributor Hx Respiratory Tract Infection No 05/07/24 09:07 STOP Sleep Apnea STOP Sleep Apnea - bread distributor: STOP Sleep Apnea - bread distributor Hx Hypertension No 05/07/24 09:07 Hx Sleep Apnea No 05/07/24 09:07 CPAP BIPAP Do you snore loudly (louder Yes 05/07/24 09:07 than talking or can be heard Do you often feel tired/ No 05/07/24 09:07 fatigued/ sleepy during daytime? Has anyone observed you stop No 05/07/24 09:07 breathing during sleep? STOP Results Negative 05/07/24 09:07 QUESTION #5 FULL TEXT : Do you snore loudly (louder than talking or can be heard through closed doors)? 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 Specify any problems Hx of Preganancy in last 3 N/A 05/07/24 09:07 Months Nurse Filling Out Transfusion [email or web address] 05/07/24 09:07 & Questions: Date: 05/07/24 05/07/24 09:07 Time: 09:10 05/07/24 09:07 Patient unable to answer at this time (ie. confused, unrespo /Reproduction History /Reproductive History - bread distributor: /Reproductive Hx- bread distributor Hx Now Gestational Age (in weeks): EDC: Hx Hx Para Hx Section SAB No 02/28/24 13:51 PFSH Medical History Loss of hearing Wears glasses Gout Bladder disease Injury of head and neck Leg cramps Non-smoker Home Medications ?Medication ?Instructions ?Recorded ?Last Taken ?Type acetaminophen 500 mg tablet 1,000 mg PO Q6H PRN pain 04/04/24 Unknown History Allergy/AdvReac Type Severity Reaction Status Date / Time No Known Allergies Allergy Verified 05/07/24 09:05 Family History Sister Cancer Mother Cancer Surgical History History of transurethral resection of bladder tumor (TURBT) Hx of peritonsillar abscess drainage Hx of tonsillectomy Social History Smoking Status: Never smoker alcohol intake: never substance use type: does not use seatbelt use: always do you feel safe at home: Yes Audit: Pertinent Findings Pertinent Findings EKG Perinent findings: January 31, 2024. Sinus rhythm with premature supraventricular complexes and with occasional premature ventricular complexes. Left axis deviation. Recommendation Anesthesia Recommendation Anesthesia recommendation: OPTIMIZED for anesthesia
--- NOTE | 2024-05-08 09:48 | HP.PCM_ITS ---
HPI - General HPI Narrative The patient is a 69-year-old male who was initially referred to the pulmonary medicine office on April 30 secondary to a PET positive scan. The patient is currently followed by Dr. Martinez of oncology due to a history of high-grade urothelial carcinoma with muscle invasion. The patient had a cystoscopy which showed a posterior bladder mass which was resected and January 2024. He underwent TURBT in February 2024. The patient had a PET scan completed in April 2024 which demonstrated increased FDG uptake in the subcarinal and perihilar regions. However, the SUV uptake was borderline at 3.6. The patient is a non-smoker. 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 The patient has resided in [place] his entire life. He is not currently on any form of systemic anticoagulation. PFSH Medical History Loss of hearing Wears glasses Gout Bladder disease Injury of head and neck Leg cramps Non-smoker Home Medications ?Medication ?Instructions ?Recorded ?Last Taken ?Type acetaminophen 500 mg tablet 1,000 mg PO Q6H PRN pain 04/04/24 Unknown History Allergy/AdvReac Type Severity Reaction Status Date / Time No Known Allergies Allergy Verified 05/07/24 09:05 Family History Sister Cancer Mother Cancer Surgical History History of transurethral resection of bladder tumor (TURBT) Hx of peritonsillar abscess drainage Hx of tonsillectomy Social History Smoking Status: Never smoker alcohol intake: never substance use type: does not use seatbelt use: always do you feel safe at home: Yes ROS ROS Narrative 10 systems reviewed with pertinent positives as noted in the HPI above. Physical Exam Const alert and no apparent distress General Appearance: cooperative HEENT normocephalic and head/scalp atraumatic Eyes PERRL and EOMs intact bilaterally Neck supple General: trachea midline Resp normal respiratory effort Auscultation: Negative for rales, rhonchi or wheezes Cardio regular rate and regular rhythm GI normal to inspection, nondistended, normoactive bowel sounds Extremity no clubbing, cyanosis or edema Skin Lesions: no lesions Rashes: no rashes Neuro CN's II-XII intact bilaterally and no focal motor deficits Psych cooperative and affect normal Assessment & Plan Assessment/Plan (1) Abnormal PET scan of lung: PLAN: The patient was referred to the pulmonary medicine clinic after being diagnosed with bladder cancer and subsequently completing a PET scan which demonstrated increased mediastinal uptake. The patient is being considered for EBUS to facilitate mediastinal lymph node sampling. The risks and benefits of the proposed procedure were discussed with the patient at length. Questions were answered accordingly. The patient is in agreement to proceed.
[2024-05-10] VITALS (8 sets, daily range): BP systolic 105–119; BP diastolic 72–78; PULSE 56–63; RESP 16–18; TEMP 36.1–36.4; O2SAT 96–100; BMI 23.8
--- NOTE | 2024-05-10 | ASPIG_PTH ---
PATIENT: BETHANY WILKINS LOC: EN U#:[id number] AGE/SX: 69/M ROOM: RE05/10/[address]: Dr. Young Samuels DO : 1955 BED: DIS: 05/10/2024 SPEC #: [id number] RECD: 05/10/24 13:01 STATUS: CLARA BARBARA #: [id number] RADHA: 05/10/24 00:[address]: Young Samuels DEPT: CYTOLOGY RECD BY: Aditya Jesus ENTERED: 05/10/24 13:02 SP TYPE: ASP OUT OTHR DR: Seth Lozano, WINDOWS SYSTEM ADMIN-C Tissues: A - Lung, NOS B - Lung, NOS C - Lung, NOS D - Lung, NOS E - Lung, NOS F - Lung, NOS G - Lung, NOS Procedures: FNA Specimen Adequacy Special Stain Group II Surgery Specimen Level IV Cytology Other HEADER OPERATION: Endobronchial ultrasound PRE-OP DIAGNOSIS: Abnormal PET scan of lung TISSUE SUBMITTED: A-C- 7 EBUS, D-E- 10R EBUS, F- 7, G- 10 R DIAGNOSIS CYTOLOGY A. EBUS, TBNA, site 7 #1 (smears): Negative for malignant cells. Lymphocytes are noted. Adequate for evaluation. B. EBUS, TBNA, site #2 (smears): Negative for malignant cells. A few lymphocytes are noted. C. EBUS, TBNA, site #3 (smears): Paucicellular specimen. Negative for malignant cells. Rare respiratory epithelial cells are noted. D. EBUS, TBNA, site 10 R, #4 (smears): Negative for malignant cells. Specimen predominantly consists of mucoid material and a few respiratory epithelial cells. Rare lymphocytes are noted. E. EBUS, TBNA, site 10 R, #5 (smears): Negative for malignant cells. Predominantly respiratory epithelial cells and a few lymphocytes are noted. F. EBUS, TBNA, site 7 fluid (cellblock): Negative for malignant cells. See comment. G. EBUS, TBNA, site 10 R fluid (cellblock): Negative for malignant cells. See comment. 05/13/2024 COMMENT F & G. A few respiratory epithelial cells and lymphocytes are noted. 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 CYTOLOGY STUDY Slides are reviewed. CYTOLOGY GROSS A. Received labeled with the patient's name and and designated EBUS, TBNA, site 7 #1. Specimen consists of two stained smears. B. Received labeled with the patient's name and and designated EBUS, TBNA, site 7 #2. Specimen consists of two stained smears. C. Received labeled with the patient's name and and designated EBUS, TBNA, site 7 #3. Specimen consists of two stained smears. D. Received labeled with the patient's name and and designated EBUS, TBNA, site 10R #4. Specimen consists of two stained smears. E. Received labeled with the patient's name and and designated EBUS, TBNA, site 10 R #5. Specimen consists of two stained smears. F. Received in RPMI is 20 ml of pink, needle rinsed fluid labeled with the patient's name and and designated EBUS, TBNA, site 7. The specimen is submitted for cell block preparation. G. Received in RPMI is 20 ml of pink, needle rinsed fluid labeled with the patient's name and and designated EBUS, TBNA, site 10 R. The specimen is submitted for cell block preparation. Mr 05/10/2024 TC:5 CPT:31082v3,30070n2, 50697j8
--- NOTE | 2024-05-10 10:46 | PRE.ANES_ITS ---
ASA Classification* ASA Classification ASA Classification: 2 Assessment & Plan Anesthesia* Anesthesia Assessment Anesthesia Assessment: Discussed sedation and/or anesthesia options, risks, benefits, and alternatives with patient/parents/legal guardian/POA. Questions invited. The patient/parents/legal guardian/POA seems to understand and agrees to proceed with anesthesia plan. Reviewed the physical assessment, medical history, allergy history and patient home medications list prior to surgery/procedure/anesthetic and documented any changes. Performed airway and anesthesia risk assessments. Anesthesia Type Anesthesia Type: General History Source History Obtained from:: Patient and Chart Anesthesia Focused Assessment* Temperature: 97.6 F Pulse Rate: 63 Blood Pressure: 115/75 Respiratory Rate: 16 Pulse Ox: 100 Oxygen Delivery Method: Room Air Airway Assessment Mouth opens: >3 cm Mallampati Score: I Teeth Condition: Caps/Crowns (Patient has a couple crowns. They are tight.) Neck Range of motion (ROM): Full ROM Focused Labs Anesthesia Preop lab: CBC WBC 5.5 K/mm3 (4.4-11.0) 04/04/24 16:20 RBC 4.45 M/mm3 (4.6-6.2) L 04/04/24 16:20 Hgb 12.5 g/dL (13.0-16.5) L 04/04/24 16:20 Hct 37.5 % (40-54) L 04/04/24 16:20 Plt Count 226 K/mm3 (150-450) 04/30/24 11:18 CHEMISTRY Potassium 3.6 mmol/L (3.5-5.1) 04/04/24 16:20 Sodium 141 mmol/L (136-145) 04/04/24 16:20 BUN 14 mg/dL (7-18) 04/04/24 16:20 Creatinine 0.99 mg/dL (0.70-1.30) 04/04/24 16:20 Glucose 85 mg/dL (74-106) 04/04/24 16:20 COAG PT 12.6 SECONDS (11.7-14.9) 04/30/24 11:18 Pre-Assessment Diagnosis/Proposed Procedure Planned Operative Procedure(s): ENDOBRONCHIAL ULTRASOUND 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 - mechanic general operational test: 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 - mechanic general operational test Hx Hospitalization Yes: TURB 02/07 WITH VLADIMIR 05/07/24 09:07 Any Problems With Anesthesia No 05/07/24 09:07 Cholinesterase deficiency No 05/07/24 09:07 You/Your Family Experience No 05/07/24 09:07 fever (hyperthermia) with Relationship Recent Exposure to Contagious No 05/10/24 10:11 Disease Does patient have nerve No 05/07/24 09:07 stimulator Patient instructed to have device shut off --Does patient have Pacemaker No 05/10/24 10:11 or ICD? When Was Last Pacemaker Check QUESTION #4 FULL TEXT: You/Your Family Experience fever (hyperthermia) with Anesthesia Last Oral Intake Last Oral intake: Last Oral Intake NPO since 21:00 05/10/24 10:11 Meds taken in AM with sips of No 05/10/24 10:11 water? Meds patient instructed to take am of surgery PONV PONV - mechanic general operational test: PONV - mechanic general operational test Female No 05/07/24 09:07 HX of Motion Sickness No 05/07/24 09:07 HX of N/V After Surgery No 05/07/24 09:07 Non-Smoker Yes 05/07/24 09:07 Duration of Surgery greater No 05/07/24 09:07 than 60 minutes Number of Risk Factors 1 05/07/24 09:07 PONV Score Low Risk 05/07/24 09:07 Height & Weight Height & Weight: Anesthesia: Height & Weight Height 5 ft 5 in 05/10/24 10:11 Weight: 65 kg 05/10/24 10:11 Body Mass Index (BMI) 23.8 05/10/24 10:11 Respiratory Assessment Respiratory Assessment - mechanic general operational test: Respiratory Tract Infection Hx - mechanic general operational test Hx Respiratory Tract Infection No 05/07/24 09:07 STOP Sleep Apnea STOP Sleep Apnea - mechanic general operational test: STOP Sleep Apnea - mechanic general operational test Hx Hypertension No 05/07/24 09:07 Hx Sleep Apnea No 05/07/24 09:07 CPAP BIPAP Do you snore loudly (louder Yes 05/07/24 09:07 than talking or can be heard Do you often feel tired/ No 05/07/24 09:07 fatigued/ sleepy during daytime? Has anyone observed you stop No 05/07/24 09:07 breathing during sleep? STOP Results Negative 05/07/24 09:07 QUESTION #5 FULL TEXT : Do you snore loudly (louder than talking or can be heard through closed doors)? 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 Specify any problems Hx of Preganancy in last 3 N/A 05/07/24 09:07 Months Nurse Filling Out Transfusion [id number] 05/07/24 09:07 & Questions: Date: 05/07/24 05/07/24 09:07 Time: 09:10 05/07/24 09:07 Patient unable to answer at this time (ie. confused, unrespo /Reproduction History /Reproductive History - mechanic general operational test: /Reproductive Hx- mechanic general operational test Hx Now Gestational Age (in weeks): EDC: Hx Hx Para Hx Section SAB No 02/28/24 13:51 PFSH Medical History Loss of hearing Wears glasses Gout Bladder disease Injury of head and neck Leg cramps Non-smoker Home Medications ?Medication ?Instructions ?Recorded ?Last Taken ?Type acetaminophen 500 mg tablet 1,000 mg PO Q6H PRN pain 04/04/24 Unknown History Allergy/AdvReac Type Severity Reaction Status Date / Time No Known Allergies Allergy Verified 05/10/24 10:10 Family History Sister Cancer Mother Cancer Surgical History History of transurethral resection of bladder tumor (TURBT) Hx of peritonsillar abscess drainage Hx of tonsillectomy Social History Smoking Status: Never smoker alcohol intake: never substance use type: does not use seatbelt use: always do you feel safe at home: Yes Review of Systems (Anesthesia) ROS Narrative System reviewed and no additional complaints, except as documented.
[2024-05-10] MEDS: Lidocaine Jelly 2% 20 ML Syringe (URO-JET) 1 APPLIC (11:24)
--- NOTE | 2024-05-10 12:19 | OP.BRONCH_ITS ---
Patient Name: Jefferson Rojas Procedure Date: 05/10/2024 10:34 AM Date of : 1955 Age: 69 Procedure: Bronchoscopy Indications: Mediastinal adenopathy Providers: Young Samuels MD Referring MD: Young Samuels MD Complications: No immediate complications Procedure: Pre-Anesthesia Assessment: - A History and Physical has been performed. Patient meds and allergies have been reviewed. The risks and benefits of the procedure and the sedation options and risks were discussed with the patient. All questions were answered and informed consent was obtained. Patient identification and proposed procedure were verified prior to the procedure by the physician and the nurse in the procedure room. Mental Status Examination: alert and oriented. Airway Examination: normal oropharyngeal airway. Respiratory Examination: clear to auscultation. CV Examination: normal. ASA Grade Assessment: II - A patient with mild systemic disease. After reviewing the risks and benefits, the patient was deemed in satisfactory condition to undergo the procedure. The anesthesia plan was to use general anesthesia. Immediately prior to administration of medications, the patient was re-assessed for adequacy to receive sedatives. The heart rate, respiratory rate, oxygen saturations, blood pressure, adequacy of pulmonary ventilation, and response to care were monitored throughout the procedure. The physical status of the patient was re-assessed after the procedure. After I obtained informed consent, the scope was passed under direct vision. Throughout the procedure, the patient's blood pressure, pulse, and oxygen saturations were monitored continuously. The ultrasound bronchoscope was introduced through the mouth, via laryngeal mask airway and advanced to the tracheobronchial tree. The procedure was accomplished without difficulty. The patient tolerated the procedure well. Findings: The laryngeal mask airway is in good position. The vocal cords appear normal. The subglottic space is normal. The trachea is of normal caliber. The edilberto is sharp. The tracheobronchial tree was examined to at least the first subsegmental level. Bronchial mucosa and anatomy are normal; there are no endobronchial lesions, and no secretions. The scope was withdrawn and replaced with the EBUS bronchoscope to accomplish the ultrasound examination. Lymph Nodes: An endobronchial ultrasound endoscope was utilized to systematically examine the subcarinal mediastinum (level 7), right hilar region (level 10R) and left hilar region (level 10L) in order to assist with guiding the biopsy needle. Lymph node sizing was performed via endobronchial ultrasound. Sampling by transbronchial needle aspiration was also performed using an Olympus ViziShot 21 gauge needle in the subcarinal mediastinum (level 7) and right hilar region (level 10R) and sent for routine cytology. - The 7 (subcarinal) node was evaluated. Three samples with the needle were obtained. - The 10R (hilar) node was evaluated and consisted of a conglomuration of small lymph nodes. Two samples with the needle were obtained. - The left hilar lymph node station was evaluated, but no significant adenopthy amenable to biopsy was located. Impression: - Mediastinal adenopathy - The airway examination was normal. - Endobronchial ultrasound was performed. - Lymph node sampling was performed. Recommendation: - Await biopsy results. Procedure Code(s): --- Professional --- 56857, Bronchoscopy, rigid or flexible, including fluoroscopic guidance, when performed; with endobronchial ultrasound (EBUS) guided transtracheal and/or transbronchial sampling (eg, aspiration[s]/biopsy[ies]), one or two mediastinal and/or hilar lymph node stations or structures Diagnosis Code(s): --- Professional --- R59.0, Localized enlarged lymph nodes R09.89, Other specified symptoms and signs involving the circulatory and respiratory systems CPT copyright 2021 [employer]. All rights reserved. The codes documented in this report are preliminary and upon bushing and broach operator review may be revised to meet current compliance requirements. DO Young Melendez MD 05/10/2024 12:19:22 PM This report has been signed electronically. Number of Addenda: 0 Note Initiated On: 05/10/2024 10:34 AM
--- NOTE | 2024-05-10 12:20 | PCM.POST.ANE ---
Anesthesia: Postop Eval I Current Vital Signs Temperature: 96.9 F Pulse Rate: 57 Blood Pressure: 110/76 Respiratory Rate: 16 Pulse Ox: 98 Oxygen Delivery Method: Room Air Assessment Airway patent: Yes Spontaneous unlabored respirations: Yes Mental status: Awake and Calm nausea: No Vomiting: No Anesthesia Complication: No Fluid Hydration Crystalloid volume administer (ml): 500 Total IV fluid infused: 500 Progress Note Anesthesia document: Postop Eval 1 completed: Yes
--- NOTE | 2024-05-10 13:53 | PCM.POSTANE2 ---
Anesthesia Postop Eval I Sum Postop Eval Completion status Anesthesia document: Postop Eval 1 completed: Yes Anesthesia Postop Eval I Summary Anesthesia Postop Eval I Summary: Anesthesia Postop Eval I: Assessment Summary Airway patent Yes 05/10/24 12:23 Spontaneous unlabored Yes 05/10/24 12:23 respirations Mental status Awake,Calm 05/10/24 12:23 nausea No 05/10/24 12:23 Vomiting No 05/10/24 12:23 Anesthesia Postop Eval I: Fluid Summary Crystalloid volume administer 500 05/10/24 12:23 (ml) Colloids volume administered ( ml) Blood Product volume administered (ml) Total IV fluid infused 500 05/10/24 12:23 Anesthesia Postop Eval I: Summary Notes Anesthesia Complication No 05/10/24 12:23 Anesthesia Complication Comment: Post-operative progress note Anesthesia: Postop Eval II Evaluation Mental status: Awake Pain Level: 0 nausea: No Vomiting: No Complications Anesthesia Complication: No
== END 2024-05-10 13:05 | disposition home or self-care (01) ==
LOC: EN 09:59 → AC 10:00
PROVIDERS: PCP Nurse Practitioner Family; Referring Provider Internal Medicine Critical Care Medicine; Visit Provider Internal Medicine Critical Care Medicine
PROC: BB4BZZZ Ultrasonography of Pleura (ICD-10-PCS; CPT 31653; principal; 2024-05-10 10:45)
DX: R59.0 Localized enlarged lymph nodes (principal); Z85.51 Personal history of malignant neoplasm of bladder; R94.2 Abnormal results of pulmonary function studies
CPT/HCPCS: 31653; 00520; 88161; 88172; 88305; 88313; A4216

== ENCOUNTER 2024-06-14 05:52 | Day surgery (SDC) | payer MEDICARE, OTHER, SELFPAY ==
[2024-06-14] VITALS (8 sets, daily range): BP systolic 98–116; BP diastolic 60–70; PULSE 49–56; RESP 14–18; TEMP 36.1–36.4; O2SAT 98–100; BMI 24.0
--- NOTE | 2024-06-14 06:41 | PCM.PRE.AN2 ---
ASA Classification* ASA Classification ASA Classification: 2 Assessment & Plan Anesthesia* Anesthesia Assessment Anesthesia Assessment: Discussed sedation and/or anesthesia options, risks, benefits, and alternatives with patient/parents/legal guardian/POA. Questions invited. The patient/parents/legal guardian/POA seems to understand and agrees to proceed with anesthesia plan. Reviewed the physical assessment, medical history, allergy history and patient home medications list prior to surgery/procedure/anesthetic and documented any changes. Performed airway and anesthesia risk assessments. Anesthesia Type Anesthesia Type: MAC History Source History Obtained from:: Patient and Chart Anesthesia Focused Assessment* Temperature: 97 F Pulse Rate: 50 Blood Pressure: 116/67 Respiratory Rate: 18 Pulse Ox: 100 Oxygen Delivery Method: Room Air Airway Assessment Mouth opens: >3 cm Mallampati Score: II Teeth Condition: Caps/Crowns (Patient has several crowns. They are all tight.) Neck Range of motion (ROM): Full ROM Focused Labs Anesthesia Preop lab: CBC WBC 5.5 K/mm3 (4.4-11.0) 04/04/24 16:20 04/04/24 RBC 4.45 M/mm3 (4.6-6.2) L 04/04/24 16:20 04/04/24 Hgb 12.5 g/dL (13.0-16.5) L 04/04/24 16:20 04/04/24 Hct 37.5 % (40-54) L 04/04/24 16:20 04/04/24 Plt Count 226 K/mm3 (150-450) 04/30/24 11:18 04/30/24 CHEMISTRY Potassium 3.6 mmol/L (3.5-5.1) 04/04/24 16:20 04/04/24 Sodium 141 mmol/L (136-145) 04/04/24 16:20 04/04/24 BUN 14 mg/dL (7-18) 04/04/24 16:20 04/04/24 Creatinine 0.99 mg/dL (0.70-1.30) 04/04/24 16:20 04/04/24 Glucose 85 mg/dL (74-106) 04/04/24 16:20 04/04/24 COAG PT 12.6 SECONDS (11.7-14.9) 04/30/24 11:18 04/30/24 Pre-Assessment Diagnosis/Proposed Procedure Planned Operative Procedure(s): (R) Insertion, Vascular Port right poss left 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 When Was Last Pacemaker Check QUESTION #4 FULL TEXT: You/Your Family Experience fever (hyperthermia) with Anesthesia Last Oral Intake Last Oral intake: Last Oral Intake NPO since 00:00 06/14/24 06:25 Meds taken in AM with sips of No 06/14/24 06:25 water? 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 Female No 06/12/24 15:10 HX of Motion Sickness Yes 06/12/24 15:10 HX of N/V After Surgery No 06/12/24 15:10 Non-Smoker Yes 06/12/24 15:10 Duration of Surgery greater Yes 06/12/24 15:10 than 60 minutes Number of Risk Factors 3 06/12/24 15:10 PONV Score Moderate Risk 06/12/24 15:10 Height & Weight Height & Weight: Anesthesia: Height & Weight Height 5 ft 5 in 06/14/24 06:25 Weight: 65.7 kg 06/14/24 06:25 Body Mass Index (BMI) 24.0 06/14/24 06:25 Respiratory Assessment Respiratory Assessment - transmission technician: Respiratory Tract Infection Hx - transmission technician Hx Respiratory Tract Infection No 06/12/24 15:10 STOP Sleep Apnea STOP Sleep Apnea - transmission technician: STOP Sleep Apnea - transmission technician Hx Hypertension No 06/12/24 15:10 Hx Sleep Apnea No 06/12/24 15:10 CPAP No 06/12/24 15:10 BIPAP Do you snore loudly (louder No 06/12/24 15:10 than talking or can be heard Do you often feel tired/ No 06/12/24 15:10 fatigued/ sleepy during daytime? Has anyone observed you stop No 06/12/24 15:10 breathing during sleep? STOP Results Negative 06/12/24 15:10 QUESTION #5 FULL TEXT : Do you snore loudly (louder than talking or can be heard through closed doors)? 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 Specify any problems Hx of Preganancy in last 3 N/A 06/12/24 15:10 Months Nurse Filling Out Transfusion VCHRISTIN 06/12/24 15:10 & Questions: Date: 06/12/24 06/12/24 15:10 Time: 15:11 06/12/24 15:10 Patient unable to answer at this time (ie. confused, unrespo /Reproduction History /Reproductive History - transmission technician: /Reproductive Hx- transmission technician Hx Now No 06/12/24 15:10 Gestational Age (in weeks): EDC: Hx Hx Para Hx Section SAB No 06/12/24 15:10 Active Medications Active Medications: Current Medications Generic Name Dose Route Start Last Admin Trade Name Freq PRN Reason Stop Dose Admin Cefazolin Sodium 2 gm/ N/A 20 mls @ 400 mls/hr 06/14/24 07:30 IV 06/14/24 07:32 PREOP ONE PFSH Medical History Mediastinal lymphadenopathy Loss of hearing Wears glasses Gout Bladder disease Injury of head and neck Leg cramps Non-smoker Home Medications ?Medication ?Instructions ?Recorded ?Last Taken ?Type acetaminophen 500 mg tablet 1,000 mg PO Q6H PRN pain 04/04/24 Unknown History Allergy/AdvReac Type Severity Reaction Status Date / Time No Known Allergies Allergy Verified 06/14/24 06:24 Family History Sister Cancer Mother Cancer Surgical History Hx of surgical procedure History of transurethral resection of bladder tumor (TURBT) Hx of peritonsillar abscess drainage Hx of tonsillectomy Social History Smoking Status: Never smoker alcohol intake: never substance use type: does not use seatbelt use: always do you feel safe at home: Yes Review of Systems (Anesthesia) ROS Narrative System reviewed and no additional complaints, except as documented.
--- NOTE | 2024-06-14 06:58 | PCM.HP.BLA ---
History and Physical Date of Admission: 06/14/24 Intake Vital Signs 05/24/2507:05 06/10/2506:56 Height 5 ft 5 in 5 ft 5 in Weight: 146 lb 4 oz 148 lb BMI 24.3 24.6 BP 109/65 126/76 H Blood Pressure Location Rt brachial Rt brachial Position Sitting Sitting Respiration 16 16 Pulse 69 Pulse Source Monitor Temp 96.7 F L Pulse Oximetry (%) 100 Oxygen Delivery Method room air Intake Visit Reasons: PORT PLACEMENT Chief Complaint: port String Studies Director Required: No Is patient in pain?: No Allergies No Known Allergies Allergy (Verified 06/10/24 07:57) Medications ?Medication ?Instructions ?Recorded ?Confirmed ?Type acetaminophen 500 mg tablet 1,000 mg PO Q6H PRN pain 04/04/24 06/10/24 History Have you fallen in the past year?: No PFSH Medical History Mediastinal lymphadenopathy Loss of hearing Wears glasses Gout Bladder disease Injury of head and neck Leg cramps Non-smoker Surgical History History of transurethral resection of bladder tumor (TURBT) Hx of peritonsillar abscess drainage Hx of tonsillectomy Family History Sister CancerMother Cancer Social History Smoking Status: Never smoker alcohol intake: never substance use type: does not use seatbelt use: always do you feel safe at home: Yes HPI HPI HPI: Patient is a 69-year-old male here for port placement for bladder cancer. Patient currently has no complaints. ROS General General: No weight change, appetite, fatigue, colon cancer, breast cancer or weakness HEENT HEENT: No difficulty swallowing, eye injury, eye surgery, swollen glands or hoarseness Endo Endocrine: No thyroid disease, diabetes mellitus, thyroid cancer, Hair loss, heat intolerance or cold intolerance Skin Skin: No rash or changing moles Breast Breast: No left breast lump, right breast lump, nipple discharge, breast pain, abnormal mammogram, abnormal US or breast enlargement Musc Musculoskeletal: Yes arthritis and gout; No back problems, rheumatoid arthritis or joint pain Cardio Cardiovascular: No murmur, pacemaker, heart disease, atrial fibrillation, high blood pressure, heart attack, heart stent, palpitations, shortness of breat with exertion or chest pain Psych Psychiatric: No depression, anxiety or hearing voices Resp Respiratory: No shortness of breath, No sleep apnea, No cough, No COPD, No asthma, No emphysema and No wheezing Gastro Gastrointestinal: No abdominal pain, No nausea or vomiting, No diarrhea, No constipation, No blood in stool, No acid reflux, No hemorrhoids, No ulcers, No gallbladder problem and No black,tarry stools Rahul Hematologic: No blood thinners, No blood disorders, No bleeding, No anemia and No blood clots Neuro Neurologic: No system reviewed and no additional complaints, except as documented, No as per HPI, No abnormal gait, No abnormal hearing, No abnormal movements, No abnormal speech, No behavioral changes, No burning sensations, No confusion, No convulsions, No disequilibrium, No dizziness, No localized weakness, No frequent falls, No headache(s), No lack of coordination, No loss of vision, No memory loss, Yes numbness, No other visual disturbances, No radicular pain, No restless legs, No sensory deficit, No syncope, Yes tingling, No tremor(s), No weakness and No other Exam Const General: cooperative Orientation: alert and oriented x3 HENMT Head: normal to inspection Neck Neck: normal visual inspection and full ROM Chest Chest palpation & inspection: normal inspection of the chest Resp Effort & Inspection: normal respiratory effort Auscultation: clear to auscultation bilaterally Cardio Rate: regular rate Rhythm: regular rhythm GI Inspection: non-distended Palpation: soft and nontender Skin General: no rashes or lesions noted Neuro General: patient alert and patient oriented x3 Extrem General: full ROM Psych Appearance: grossly normal Mental Status: mental status grossly normal Assessment and Plan Assessment and Plan (1) Bladder cancer: Status: Chronic Qualifiers: Bladder location: posterior wall Qualified Code(s): C67.4 - Malignant neoplasm of posterior wall of bladder (2) Encounter for adjustment and management of vascular access device: Status: Acute Plan I discussed right chest port placement with the patient in detail. I discussed the procedure in detail as well as the risks including but not limited to bleeding, infection, pneumothorax. I also discussed line infection and DVT risks. Patient understands all the risks and is willing to proceed. Buddy Mccallum MD Pager: [facility] [address] [place] [address], [address] [place] [address] Office: I have examined the patient and the H&P has been reviewed. There are no clinical changes since date of exam.
[2024-06-14] MEDS: Cefazolin 2 GM in Syringe IV (07:25)
[2024-06-14] MEDS: Lidocaine 1% /Epi 1:100 (20ml) 20 ML Vial (07:38)
[2024-06-14] MEDS: Bupivacaine Mpf 0.5% 30 ML VIAL (07:38)
--- NOTE | 2024-06-14 07:57 | OP.PCM_ITS ---
Operative Report (Standard) Operative Information Date of Procedure: 06/14/24 Pre-Operative Diagnosis: Bladder cancer need for vascular access for chemotherapy Post-Operative Diagnosis: Same Surgery/Procedure Performed: Ultrasound and fluoroscopy guided right chest port placement utilizing right IJ interactive project manager: No Type of Anesthesia: Local MAC RN Documented Start/Stop Times: Operation Date: 06/14/24 07:30 Case Time Into Pre-Op 06/14/24 06:03 Out of Pre-Op 06/14/24 07:20 Anesthesia Start 06/14/24 07:25 Into Room 06/14/24 07:25 Procedure Start 06/14/24 07:37 Procedure End 06/14/24 07:50 Anesthesia End 06/14/24 07:53 Out of Room 06/14/24 07:53 Into Recovery 06/14/24 07:56 Procedure Start Time: 07:37 Procedure Stop Time: 07:50 Select all DRAINS/GRAFTS/IMPLANTS that apply: Prosthetic device Prosthetic d evice details: 8 [place] PowerPort Estimated Blood Loss: 5 Specimen collected: No Description of surgery: After obtaining informed consent patient was brought back to the operating room MAC anesthesia was induced and the right chest and neck were prepped in normal sterile fashion. Ultrasound was used to evaluate both IJs and the right IJ was selected. Next, using a needle, the right IJ was accessed and a guidewire was passed on into the superior vena cava under fluoroscopy guidance. A small incision was made over the puncture site and the dilator introducer was placed over the guidewire. Next this was capped and the pocket was made for the port. 1% lidocaine with epinephrine was injected in the proposed port site. An incision was made with scalpel. Electrocautery was used to make a pocket under the skin and subcutaneous tissue. Hemostasis was obtained. Next, the catheter was tunneled up to the neck incision site and placed through the introducer. The peel-away introducer was removed and the position of the catheter was confirmed on fluoroscopy. Next, the catheter was trimmed and attached to the port with the locking device. Interrupted 2-0 Vicryl sutures were used to anchor the port to the chest wall and then the port was placed inside the pocket. The pocket was then flushed with saline and the port irrigated with saline. There was good blood return and the port flushed easily. Next, heparin was injected into the port. The skin was closed with subcutaneous interrupted 3-0 Vicryl sutures. A single 3-0 Vicryl sutures placed under the skin at the neck incision site. Steri-Strips were placed as well as op sites. Patient tolerated procedure well, was taken to PACU in stable condition. Chest x-ray will be obtained. Surgical Findings: none Complications Complications: No Admit VTE Documentation VTE Mechan Device Prophylaxis: SCD's
--- NOTE | 2024-06-14 07:58 | DCINST_ITS ---
Discharge Instructions Procedure Port-A-Cath Diet Discharge Diet: Light diet - advance as tolerated (Pain medication may cause nausea. You should typically eat light foods as you take your pain medication.) Activity Discharge Activity: Return to Normal Activity and May Shower (with your bandage in place in 1-2 days after surgery. DO NOT SHOWER WHEN YOUR PORT IS ACCESSED.) Lifting Restrictions: 15 lbs for 1 week, then back to normal activity Dressing / Incision Call your doctor if your incision/area has: Continuous Slow Oozing, Sudden Increased Bleeding, Increased Pain/ Swelling, Increased Redness and Foul Smelling Discharge Call your doctor if you observe: Fever of 101 or Higher Remove Dressing in: 2 days Cleanse incision/area with: Soap & Water Follow Up Care Please Follow Up With: Buddy Mccallum MD When: as needed [phone] Test Results: Test results from this visit will be discussed in further detail at your follow- up appointment, if applicable. Discharge Plan Admission Attending Provider: Buddy Mccallum Primary Care Provider: Seth Lozano NP Instructions Print Language: Hebrew Discharge Orders/Prescriptions Prescriptions: No Action acetaminophen 500 mg tablet 1,000 mg PO Q6H PRN (Reason: pain) Referrals / Follow Up: Seth Lozano NP, SALES DEMONSTRATOR-C [Primary Care Provider] - Disposition Disposition (needs filled in before D/C Order can be placed): Home, Self Care
--- NOTE | 2024-06-14 08:00 | RAD_ITS ---
PROCEDURE: CXR FOR LINE PLACEMENT REASON FOR EXAM: Port a catheter placement. TECHNIQUE: A frontal view of the chest was obtained. COMPARISON: None. FINDINGS: A right-sided port a catheter has been placed with the tip at the junction of the superior vena cava and right atrium. EKG electrodes are seen. The lungs are clear. No evidence of pneumothorax. Mild degree of degenerative changes of the dorsal spine. RAD/CXR for Line Placement IMPRESSION: The tip of the right-sided port a catheter is at the junction of the superior v mauro cava and right atrium. Reading Location: [facility]
--- NOTE | 2024-06-14 08:12 | PCM.POST.ANE ---
Anesthesia: Postop Eval I Current Vital Signs Temperature: 97.6 F Pulse Rate: 56 Blood Pressure: 101/64 Respiratory Rate: 18 Pulse Ox: 100 Oxygen Delivery Method: Room Air Assessment Airway patent: Yes Spontaneous unlabored respirations: Yes Mental status: Awake and Calm nausea: No Vomiting: No Anesthesia Complication: No Fluid Hydration Crystalloid volume administer (ml): 10 Total IV fluid infused: 10 Progress Note Anesthesia document: Postop Eval 1 completed: Yes
--- NOTE | 2024-06-14 16:19 | POSTOPAN2_ITS ---
Anesthesia Postop Eval I Sum Postop Eval Completion status Anesthesia document: Postop Eval 1 completed: Yes Anesthesia Postop Eval I Summary Anesthesia Postop Eval I Summary: Anesthesia Postop Eval I: Assessment Summary Airway patent Yes 06/14/24 08:13 PICTURE [email or web address].[email or web address] Spontaneous unlabored Yes 06/14/24 08:13 PICTURE [email or web address].EREN respirations Mental status Awake,Calm 06/14/24 08:13 PICTURE [email or web address].EREN nausea No 06/14/24 08:13 PICTURE ENGRAVER.EREN Vomiting No 06/14/24 08:13 PICTURE ENGRAVER.EREN Anesthesia Postop Eval I: Fluid Summary Crystalloid volume administer 10 06/14/24 08:13 PICTURE ENGRAVER.EREN (ml) Colloids volume administered ( ml) Blood Product volume administered (ml) Total IV fluid infused 10 06/14/24 08:13 PICTURE ENGRAVER.EREN Anesthesia Postop Eval I: Summary Notes Anesthesia Complication No 06/14/24 08:13 PICTURE ENGRAVER.EREN Anesthesia Complication Comment: Post-operative progress note Anesthesia: Postop Eval II Evaluation Mental status: Awake and Calm Pain Level: 1 nausea: No Vomiting: No Complications Anesthesia Complication: No
--- NOTE | 2024-06-14 16:19 | PCM.POSTANE2 ---
Anesthesia Postop Eval I Sum Postop Eval Completion status Anesthesia document: Postop Eval 1 completed: Yes Anesthesia Postop Eval I Summary Anesthesia Postop Eval I Summary: Anesthesia Postop Eval I: Assessment Summary Airway patent Yes 06/14/24 08:13 BUTTERMILK DRIER OPERATOR.[email or web address] Spontaneous unlabored Yes 06/14/24 08:13 BUTTERMILK DRIER OPERATOR.EREN respirations Mental status Awake,Calm 06/14/24 08:13 BUTTERMILK DRIER OPERATOR.EREN nausea No 06/14/24 08:13 BUTTERMILK DRIER OPERATOR.EREN Vomiting No 06/14/24 08:13 BUTTERMILK DRIER OPERATOR.EREN Anesthesia Postop Eval I: Fluid Summary Crystalloid volume administer 10 06/14/24 08:13 BUTTERMILK DRIER OPERATOR.EREN (ml) Colloids volume administered ( ml) Blood Product volume administered (ml) Total IV fluid infused 10 06/14/24 08:13 BUTTERMILK DRIER OPERATOR.EREN Anesthesia Postop Eval I: Summary Notes Anesthesia Complication No 06/14/24 08:13 BUTTERMILK DRIER OPERATOR.EREN Anesthesia Complication Comment: Post-operative progress note Anesthesia: Postop Eval II Evaluation Mental status: Awake and Calm Pain Level: 1 nausea: No Vomiting: No Complications Anesthesia Complication: No
== END 2024-06-14 09:15 | disposition home or self-care (01) ==
LOC: SDC 05:54 → AC 05:54
PROVIDERS: PCP Nurse Practitioner Family; Referring Provider Surgery; Visit Provider Surgery
PROC: (CPT 36561; principal; 2024-06-14 07:15)
DX: Z45.2 Encounter for adjustment and management of vascular access device (principal); C67.4 Malignant neoplasm of posterior wall of bladder
CPT/HCPCS: 36561; 71045; 77001; A4216; C1788; J2405

== ENCOUNTER 2024-07-24 17:16 | Emergency (ER) | payer MEDICARE, OTHER, SELFPAY ==
[2024-07-24] VITALS (7 sets, daily range): BP systolic 110–134; BP diastolic 64–78; PULSE 18–98; RESP 18–98; TEMP 36.8–37.7; O2SAT 98–115; BMI 22.5
--- NOTE | 2024-07-24 19:03 | EKG12_ITS ---
Test Reason : DYSRHYTHMIA Blood Pressure : */* mmHG Vent. Rate : 72 BPM Atrial Rate : 72 BPM P-R Int : 160 ms QRS Dur : 78 ms QT Int : 392 ms P-R-T Axes : 10 -9 42 degrees QTcB Int : 429 ms Normal sinus rhythm Normal ECG Confirmed by MAGDALENA MALLORY, DARIUS ([id number]), staff editor HI MOORE ([id number]) on 07/25/2024 8:41:34 AM Referred By: Confirmed By: DARIUS NICHOLS MD
--- NOTE | 2024-07-24 19:05 | EDS_ITS ---
HPI History of Present Illness Chief Complaint: General Illness Informant: patient Onset/Context/Timing Onset: Today Context: Gradual Onset Timing: Continuous Quality: Fever Location: Generalized Worsened by: Nothing Relieved by: Tylenol Narrative Narrative: Patient presents with fever that was noticed today. Patient states his fever was 101.1 at home. Patient states he just finished chemotherapy and radiation therapy 5 days ago. Patient states he was told that if his fever is over 100, he should come to the emergency department. Patient admits to some nausea and abdominal pain. Patient admits to some urinary frequency but denies any dysuria or hematuria. Patient denies any shortness of breath or cough. Patient denies any chest pain. PFSH PFSH Medical History Mediastinal lymphadenopathy Loss of hearing Wears glasses Gout Bladder disease Injury of head and neck Leg cramps Non-smoker Home Medications ?Medication ?Instructions ?Recorded ?Last Taken ?Type acetaminophen 500 mg tablet 1,000 mg PO Q6H PRN pain 1 06/05/23 Unknown History lidocaine-prilocaine 2.5 %-2.5 % 1 applic topical ONCE PRN port 06/19/24 Unknown Rx topical cream access 30 days #30 grams ondansetron 8 mg disintegrating 8 mg PO Q8H PRN nausea and 06/19/24 Unknown Rx tablet vomiting #30 tabs prochlorperazine maleate 10 mg 10 mg PO Q6H PRN nausea and 06/19/24 Unknown Rx tablet vomiting #30 tabs ciprofloxacin HCl 500 mg tablet 500 mg PO BID #14 TABL ETS 07/24/24 Unknown Rx Allergy/AdvReac Type Severity Reaction Status Date / Time No Known Allergies Allergy Verified 07/24/24 17:18 Family History Sister Cancer Mother Cancer Surgical History Hx of surgical procedure History of transurethral resection of bladder tumor (TURBT) Hx of peritonsillar abscess drainage Hx of tonsillectomy Social History Smoking Status: Never smoker alcohol intake: never substance use type: does not use seatbelt use: always do you feel safe at home: Yes ROS ROS ED Constitutional Constitutional ED: Reports fever(s); Denies chills Eyes Eyes: Denies blurry vision or change in vision ENT ENT ED: Denies rhinorrhea or sore throat Cardiovascular Cardiovascular: Denies chest pain or palpitations Respiratory/Chest Respiratory/Chest: Denies cough or dyspnea Gastrointestinal Gastrointestinal: Reports abdominal pain and nausea; Denies melena or vomiting Genitourinary Genitourinary ED: Reports urinary frequency; Denies dysuria or hematuria Musculoskeletal Musculoskeletal: Denies back pain or neck pain Integumentary Denies abscess or rash Neurologic Neurologic: Denies headache(s) or weakness Allergic/Immunologic Allergic/Immunologic ED: Denies mouth swelling or urticaria EXAM Physical Exam Const Vital Signs: 07/24/24 17:18 07/24/24 17:22 07/24/24 18:22 Temperature 98.2 F 98.6 F Temperature Source Oral Oral Pulse Rate 79 18 L Respiratory Rate 18 98 H Respiratory Effort Normal Respiratory Pattern Normal Blood Pressure 134/78 H Blood Pressure Mean 96 Pulse Ox 100 99 Oxygen Delivery Method Room Air Room Air 07/24/24 19:34 07/24/24 19:34 07/24/24 19:48 Temperature 99.9 F H Temperature Source Oral Pulse Rate 98 74 Respiratory Rate 18 23 H Respiratory Effort Respiratory Pattern Blood Pressure 122/64 H Blood Pressure Mean 83 Pulse Ox 99 Oxygen Delivery Method Room Air Room Air 07/24/24 20:00 07/24/24 21:00 07/24/24 21:00 Temperature 99.9 F H 99.7 F H Temperature Source Oral Oral Pulse Rate 74 78 77 Respiratory Rate 18 20 H 24 H Respiratory Effort Respiratory Pattern Blood Pressure 115/66 110/65 110/65 Blood Pressure Mean 82 80 80 Pulse Ox 115 98 98 Oxygen Delivery Method Room Air Room Air Room Air Positive well nourished and well developed General Appearance ED: well developed and NAD HEENT Reports moist mucous membranes Neck supple and no JVD Resp normal respiratory effort and clear to auscultation bilaterally Cardio regular rate and regular rhythm GI non-tender and non-distended Palpation: soft Extremity normal to inspection General Extremety ED: Negative for edema or tenderness General Extremity: Negative for edema Neuro oriented x3, CN's II-XII intact bilaterally and no sensory deficits noted Sensorium / Orientation: alert Motor Exam: strength 5/5 throughout MDM MDM MDM Narrative Medical decision making narrative: Differential diagnosis neutropenia, sepsis, pneumonia, urinary tract infection, viral illness, anemia, dehydration, cardiac dysrhythmia, and electrolyte abnormality. EKG will be obtained to assess for cardiac dysrhythmia and cardiac ischemia. Chest x-ray will be obtained to assess for pneumonia and bronchitis. CBC will be obtained to assess for leukocytosis and anemia. Comprehensive metabolic profile will be obtained to assess for [place] function, renal function, and electrolyte abnormality. Serum lactate will be obtained to assess for sepsis. PT with INR and PTT will be obtained to assess for coagulopathy. Urinalysis will be obtained to assess for urinary tract infection and hematuria. Blood cultures will be obtained to assess for sepsis. Urine culture will be obtained to assess for urinary tract infection. COVID-19 influenza and RSV PCR will be obtained to assess for viral illness. Lab Data Attestation: I reviewed the patient's lab results. Lab results narrative: CBC was reviewed. White blood cell count was low at 1.2. Hemoglobin was 9.4 and hematocrit was 26.4. Platelets were 94. Absolute neutrophil count was 0.7. PT with INR and PTT were reviewed and were within normal limits. Comprehensive metabolic profile was reviewed. Sodium was slightly low at 132. CO2 is slightly low at 20.2. Anion gap was normal. Serum lactate was reviewed and was less than 1.0. Urinalysis was reviewed. Leukocyte esterase was 25. There are 0-5 white blood cells. There are no bacteria noted. COVID-19 PCR was reviewed and was negative. Influenza PCR was reviewed and was negative for influenza A and influenza B. RSV PCR was reviewed and was negative. Labs: Laboratory Results - last 24 hr 07/24/24 19:25 WBC 1.2 L* RBC 3.25 L Hgb 9.4 L Hct 26.4 L MCV 81.2 MCH 28.9 MCHC 35.6 RDW Std Deviation 39.5 RDW Coeff of Lori 14.8 H Plt Count 94 L MPV 9.7 Immature Gran % (Auto) 0.000 Neut % (Auto) 59.9 Lymph % (Auto) 13.1 L Harvey % (Auto) 25.4 H Eos % (Auto) 0.8 Baso % (Auto) 0.8 Absolute Neuts (auto) 0.7 L Absolute Lymphs (auto) 0.16 L Nucleated RBC % 0 Diff Path Review May foll Toxic Granulation 2. Platelet Estimate MOD DEC Macrocytosis 1+ Ovalocytes 1+ PT 14.2 INR 1.1 APTT 25.7 Sodium 132 L Potassium 3.5 Chloride 100 Carbon Dioxide 20.2 L Anion Gap 12 BUN 19 Creatinine 0.84 Estim Creat Clear Calc 72.10 Est GFR (MDRD) Non-Af 94 BUN/Creatinine Ratio 22.9 H Glucose 98 Lactic Acid < 1.0 Calcium 8.7 Total Bilirubin 0.40 AST 12 ALT 11 Alkaline Phosphatase 61 Total Protein 5.4 L Albumin 3.1 L Globulin 2.3 Albumin/Globulin Ratio 1.3 Urine Color Yellow Urine Clarity Clear Urine pH 5.0 Ur Specific Joseph 1.020 Urine Protein 30 H Urine Glucose (UA) Normal Urine Ketones 15 H Urine Occult Blood 10 H Urine Nitrite Negative Urine Bilirubin Negative Urine Urobilinogen Normal Ur Leukocyte Esterase 25 H Urine RBC 0 SEEN Urine WBC 0-5 SEEN Ur Squamous Epith Cells 0 SEEN Urine Bacteria 0 SEEN Urine Mucus 1+ Radiography Chest X-Ray - ED: 2 View, Read by ED Physician, Read by Radiologist and No Acute Disease Diagnostic Testing: Clinical Impression(s) from Imaging Studies Chest X-Ray 07/24/24 19:40 IMPRESSION: NO ACUTE FINDINGS. Reading Location: [facility] and lateral chest x-ray was obtained. There are 2 views. On my independent interpretation, lung butterfield are clear. There is normal cardiac silhouette. Bony thorax is normal. There is no acute process noted. Radiologist also interpreted the x-ray and agrees. EKG Initial EKG: Attestation: I personally reviewed and interpreted this EKG as follows: Interpretation: Sinus Rhythm (72) and No Acute Injury Pattern Comments: EKG was obtained. On my independent interpretation, it showed a normal sinus rhythm with a rate of 72. OK interval, QRS interval, and QTc intervals were all normal. [place] was normal. There are no acute ST or T wave changes. Prior EKG tracings: available for review Prior: Unchanged (01/31/2024) Treatment and Re-Evaluation :: Patient was advised of the findings. Case was discussed with Shantel Norris, nurse practitioner from oncology. She recommended covering the patient with Cipro. Patient was given a dose of Cipro IV here. Patient was given a prescription for Cipro. Patient was instructed to follow-up with oncology in 5 to 7 days. Patient was instructed to continue Tylenol as needed for any fevers. Patient was instructed to return if worse in any way. Patient understood and was agreeable with the plan. All questions were answered. Discharge Plan Triage Chief Complaint: General Illness ED Provider: Jayson Bartlett Dx/Rx/DC Orders Clinical Impression: Fever, Bladder cancer, Pancytopenia Instructions: ED Fever Control (Adult) Prescriptions: New ciprofloxacin HCl 500 mg tablet 500 mg PO BID Qty: 14 0RF No Action acetaminophen 500 mg tablet 1,000 mg PO Q6H PRN (Reason: pain) prochlorperazine maleate 10 mg tablet 10 mg PO Q6H PRN (Reason: nausea and vomiting) Qty: 30 2RF ondansetron 8 mg tablet,disintegrating 8 mg PO Q8H PRN (Reason: nausea and vomiting) Qty: 30 2RF lidocaine-prilocaine 2.5-2.5 % cream 1 applic topical ONCE PRN (Reason: port access) 30 Days Qty: 30 2RF Primary Care Provider: Seth Lozano NP Referrals: Donny Martinez MD [Med Staff - Active Staff] - 5-7 Days eSth Lozano NP, LEAD C DEVELOPER-C [Primary Care Provider] - Print Language: Japanese Disposition Disposition: Home, Self Care
[2024-07-24 19:40] LABS: Bacteria 0 SEEN /hpf (None Seen); Red Blood Cells-Urine 0 SEEN /hpf (0-5); Squamous Epithelial Cells - UA 0 SEEN /hpf (0-5)
--- NOTE | 2024-07-24 19:40 | RAD_ITS ---
PROCEDURE: CHEST PA AND LATERAL 07/24/2024 REASON FOR EXAM: FEVER TECHNIQUE: Frontal and lateral views of the chest. COMPARISON: 06/14/2024 FINDINGS: Hardware: Stable right sided port catheter. Heart: The heart size is normal. Mediastinum: The mediastinal contour is unremarkable. Lungs: No focal consolidation. No pneumothorax. No pleural effusion. Bones: Degenerative changes are identified within the thoracic spine. RAD/Chest PA and Lateral IMPRESSION: NO ACUTE FINDINGS. Reading [facility]
[2024-07-24 19:41] LABS: Absolute Lymphocyte Count 0.16 X10^3/uL (0.83-4.51); Absolute Neutrophil Count 0.7 X10^3/uL (2.0-7.7); Basophil# 0.01 X10^3/uL; Basophil% 0.8 % (0-1); Eosinophil# 0.01 X10^3/uL; Eosinophils% 0.8 % (0-5); Hematocrit 26.4 % (40-54); Hemoglobin 9.4 g/dL (13.0-16.5); Lymphocyte # 0.16 X10^3/ul (0.83-4.51); Lymphocyte % 13.1 % (19-41); Mean Corp Hgb Conc 35.6 g/dL (32-36); Mean Corpuscular Hgb 28.9 pg (27.0-32.0); Mean Corpuscular Volume 81.2 fL (80-94); Mean Platelet Vol. 9.7 fl (6.2-12.0); Monocyte# 0.31 X10^3/uL; Monocyte% 25.4 % (0-10); NRBC Flagged by Analyzer 0 % (0-5); Neutrophil # 0.73 X10^3/uL (2.7-7.7); Neutrophil % 59.9 % (47-70); POSITIVE COUNT YES; POSITIVE DIFFERENTIAL YES; POSITIVE MORPHOLOGY YES; Platelet Count 94 K/mm3 (150-450); RBC Distribution Width CV 14.8 % (11.6-14.6); RBC Distribution Width SD 39.5 fl (35.1-43.9); Red Blood Count 3.25 M/mm3 (4.6-6.2)
[2024-07-24 19:45] LABS: Color, Urine Yellow (Yellow); Glucose, Dipstick Normal (Normal); Ketone-Dipstick 15 mg/dl (Negative); Leukocyte Esterase-Dipstick 25 /ul (Negative); Nitrite-Dipstick Negative (Negative); Occult Blood-Urine 10 /ul (Negative); Protein-Dipstick 30 mg/dl (Negative); Urine Bilirubin Dipstick Negative (Negative); Urine Clarity Clear (Clear); Urine Urobilinogen Normal (Normal)
[2024-07-24 19:49] LABS: White Blood Count 1.2 K/mm3 (4.4-11.0)
[2024-07-24 19:51] LABS: International Normalized Ratio 1.1; Partial Thromboplast Time 25.7 Seconds (24.1-36.2); Prothrombin Time (Protime)PT. 14.2 SECONDS (11.7-14.9)
[2024-07-24 20:06] LABS: Mucous, Urine 1+ /hpf (<or=2+); White Blood Cells 0-5 SEEN /hpf (0-5)
[2024-07-24 20:21] LABS: ALB/GLOB Ratio 1.3 RATIO (0.9-2.4); AST(SGOT) 12 U/L (<=37); Alanine Aminotransfer ALT/SGPT 11 U/L (<=46); Albumin, Serum 3.1 g/dL (3.4-4.8); Alkaline Phosphatase 61 U/L (40-129); Anion Gap 12 (5-15); BUN 19 mg/dL (4-19); BUN/Creat Ratio 22.9 RATIO (10-20); Calcium,Total 8.7 mg/dL (7.6-11.0); Carbon Dioxide 20.2 mmol/L (21.0-32.0); Chloride 100 mmol/L (98-108); Creatinine, Serum 0.84 mg/dL (0.70-1.20); EST Glomerular Filtration Rate 94 (>60); Globulin 2.3 g/dL (2.2-4.2); Glucose 98 mg/dL (70-99); Macrocytosis 1+; Potassium 3.5 mmol/L (3.3-5.1); Protein, Total 5.4 g/dL (5.9-8.4); Sodium Level 132 mmol/L (133-145)
[2024-07-24 20:23] LABS: Lactic Acid < 1.0 mmol/L (0.0-2.0)
[2024-07-24 20:24] LABS: Ovalocyte 1+; Pathologist Review May foll; Platelet Estimate MOD DEC (ADEQ)
[2024-07-24] MEDS: Ciprofloxacin 400 MG/200 ML BAG 200 MG IV (21:51)
== END 2024-07-24 22:59 | disposition home or self-care (01) ==
PROVIDERS: Emergency Provider Emergency Medicine; PCP Nurse Practitioner Family; Visit Provider Emergency Medicine
DX: R50.9 Fever, unspecified (principal); D61.818 Other pancytopenia; C67.9 Malignant neoplasm of bladder, unspecified; R10.9 Unspecified abdominal pain; R35.0 Frequency of micturition; R11.0 Nausea; Z79.899 Other long term (current) drug therapy; Z11.52 Encounter for screening for COVID-19
CPT/HCPCS: 36415; 36591; 71046; 80053; 81001; 83605; 85025; 85610; 85730; 87040; 87086; 87631; 93005; 96365; 99285; A4216; J0744

== ENCOUNTER → 2024-10-30 | Outpatient (CLI) | payer MEDICARE, OTHER, SELFPAY ==
--- NOTE | 2024-10-30 07:59 | CT_ITS ---
PROCEDURE: CT CHEST, ABD, PEL W/CONTRAST 10/30/2024 REASON FOR EXAM: BLADDER CA-IV ONLY Prior chemotherapy. TECHNIQUE: Chest, abdomen and pelvis CT with intravenous contrast. Coronal and Sagittal reconstruction series were provided. One or more dose reduction techniques were used (e.g., Automated exposure control, adjustment of the mA and/or kV according to patient size, use of iterative reconstruction technique. PATIENT PREPARATION: Per protocol ORAL CONTRAST TYPE: None. CONTRAST: Isovue-300 VOLUME: 100mL RADIATION DOSE SUMMARY: CTDlvol: 12 mGy DLP: 995.02 mGycm COMPARISON: Prior study dated April 11, 2024. FINDINGS: CT CHEST: Hardware: A right-sided port a catheter is seen with the tip in the superior vena cava. Lymph nodes: Small benign Heart and Vasculature: Minimal coronary artery calcification. Heart is nonenlarged. No evidence of pericardial effusion. Lungs and Airways: Minimal linear basilar atelectasis. Pleura: No pleural effusion. Bones: Degenerative changes of the thoracic spine. CT ABDOMEN/PELVIS: Liver: Normal size. No mass. Gallbladder: Unremarkable. Spleen: Normal size. Pancreas: Normal size without evidence of mass surrounding inflammation or ductal dilation. Adrenals: Unremarkable Kidneys: Normal renal sizes. No hydronephrosis. Bladder: Ureter wall thickening. This is there is evidence of a 2.6 cm by 2.6 cm polypoid lesion in the left side of the bladder at the base. This has grown as compared to prior study Bowel: No bowel obstruction. Appendix: The appendix is not identified. There is no inflammatory process identified in the right lower quadrant to suggest appendicitis. Lymph nodes: Unremarkable. Vasculature: Mild diffuse atherosclerotic calcifications are noted. Peritoneum / Retroperitoneum: Unremarkable Bones: Degenerative changes of the spine. Grade 1 anterior listhesis of L5 on S1 with spondylolysis of the pars interarticularis of the L5 vertebrae. CT/CT Chest, Abd, Pel w/Contrast IMPRESSION: Persistent bladder wall thickening more pronounced at the base of the left side of the bladder with the polypoid lesion as described. The remainder of the examination is unchanged. Reading Location: [place] [address]
[2024-10-30] MEDS: 0.9% Saline Lock 10 ML Syringe IV (08:45)
== END | disposition home or self-care (01) ==
LOC: CT 07:59
PROVIDERS: PCP Nurse Practitioner Family; Referring Provider Internal Medicine Medical Oncology; Visit Provider Internal Medicine Medical Oncology
DX: C67.4 Malignant neoplasm of posterior wall of bladder (principal); Z45.2 Encounter for adjustment and management of vascular access device
CPT/HCPCS: 71260; 74177; Q9967; A4216

== ENCOUNTER 2024-12-13 10:13 | Day surgery (SDC) | payer MEDICARE, OTHER, SELFPAY ==
[2024-12-13] VITALS (9 sets, daily range): BP systolic 105–164; BP diastolic 60–98; PULSE 53–67; RESP 12–16; TEMP 36–36.8; O2SAT 92–100; BMI 22.4
--- NOTE | 2024-12-13 10:35 | PRE.ANES_ITS ---
ASA Classification* ASA Classification ASA Classification: 2 Assessment & Plan Anesthesia* Anesthesia Assessment Anesthesia Assessment: Discussed sedation and/or anesthesia options, risks, benefits, and alternatives with patient/parents/legal guardian/POA. Questions invited. The patient/parents/legal guardian/POA seems to understand and agrees to proceed with anesthesia plan. Reviewed the physical assessment, medical history, allergy history and patient home medications list prior to surgery/procedure/anesthetic and documented any changes. Performed airway and anesthesia risk assessments. Anesthesia Type Anesthesia Type: General Anesthesia Focused Assessment* Airway Assessment Mouth opens: >3 cm Mallampati Score: II Labs Anesthesia Preop lab: CBC WBC 2.9 K/mm3 (4.4-11.0) L 10/30/24 07:45 10/30/24 RBC 4.14 M/mm3 (4.6-6.2) L 10/30/24 07:45 10/30/24 Hgb 13.6 g/dL (13.0-16.5) 10/30/24 07:45 10/30/24 Hct 37.8 % (40-54) L 10/30/24 07:45 10/30/24 Plt Count 157 K/mm3 (150-450) 10/30/24 07:45 10/30/24 CHEMISTRY Potassium 4.0 mmol/L (3.3-5.1) 10/30/24 07:45 10/30/24 Sodium 138 mmol/L (133-145) 10/30/24 07:45 10/30/24 Magnesium 2.1 mg/dL (1.5-2.2) 08/12/24 09:38 08/12/24 Phosphorus 2.6 mg/dL (2.7-4.5) L 08/12/24 09:38 08/12/24 BUN 19 mg/dL (4-19) 10/30/24 07:45 10/30/24 Creatinine 1.01 mg/dL (0.70-1.20) 10/30/24 07:45 10/30/24 Glucose 99 mg/dL (70-99) 10/30/24 07:45 10/30/24 COAG PT 14.2 SECONDS (11.7-14.9) 07/24/24 19:25 Pre-Assessment Diagnosis/Proposed Procedure Planned Operative Procedure(s): Cysto,Litholapaxy,Laser 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 When Was Last Pacemaker Check QUESTION #4 FULL TEXT: You/Your Family Experience fever (hyperthermia) with Anesthesia Last Oral Intake Last Oral intake: Last Oral Intake NPO since Meds taken in AM with sips of water? Meds patient instructed to take am of surgery PONV PONV - mathematical physicist: PONV - mathematical physicist Female No 12/02/24 14:16 HX of Motion Sickness Yes 12/02/24 14:16 HX of N/V After Surgery No 12/02/24 14:16 Non-Smoker Yes 12/02/24 14:16 Duration of Surgery greater Yes 12/02/24 14:16 than 60 minutes Number of Risk Factors 3 12/02/24 14:16 PONV Score Moderate Risk 12/02/24 14:16 Height & Weight Height & Weight: Anesthesia: Height & Weight Height 5 ft 5 in 11/07/24 08:26 Respiratory Assessment Respiratory Assessment - mathematical physicist: Respiratory Tract Infection Hx - mathematical physicist Hx Respiratory Tract Infection No 12/02/24 14:16 STOP Sleep Apnea STOP Sleep Apnea - mathematical physicist: STOP Sleep Apnea - mathematical physicist Hx Hypertension No 12/02/24 14:16 Hx Sleep Apnea No 12/02/24 14:16 CPAP No 12/02/24 14:16 BIPAP Do you snore loudly (louder Yes 12/02/24 14:16 than talking or can be heard Do you often feel tired/ No 12/02/24 14:16 fatigued/ sleepy during daytime? Has anyone observed you stop No 12/02/24 14:16 breathing during sleep? STOP Results Negative 12/02/24 14:16 QUESTION #5 FULL TEXT : Do you snore loudly (louder than talking or can be heard through closed doors)? 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 Specify any problems Hx of Preganancy in last 3 N/A 12/02/24 14:16 Months Nurse Filling Out Transfusion MGRIFFITH 12/02/24 14:16 & Questions: Date: 12/02/24 12/02/24 14:16 Time: 14:18 12/02/24 14:16 Patient unable to answer at this time (ie. confused, unrespo /Reproduction History /Reproductive History - mathematical physicist: /Reproductive Hx- mathematical physicist Hx Now No 12/02/24 14:16 Gestational Age (in weeks): EDC: Hx Hx Para Hx Section SAB No 06/12/24 15:10 Active Medications Active Medications: Current Medications Generic Name Dose Route Start Last Admin Trade Name Freq PRN Reason Stop Dose Admin Cefazolin Sodium 2 gm/ Sodium 110 mls @ 200 mls/hr 12/13/24 12:25 Chloride IV 12/13/24 12:57 INTRAOP ONE Lactated Ringer's 1,000 mls @ 15 mls/hr 12/13/24 10:30 IV .Q48H ALONDRA PFSH Medical History Cancer Mediastinal lymphadenopathy Loss of hearing Wears glasses Gout Bladder disease Injury of head and neck Leg cramps Non-smoker Home Medications ?Medication ?Instructions ?Recorded ?Last Taken ?Type lidocaine-prilocaine 2.5 %-2.5 % 1 applic topical ONCE PRN port 06/19/24 Unknown Rx topical cream access 30 days #30 grams ondansetron 8 mg disintegrating 8 mg PO Q8H PRN nausea and 06/19/24 Unknown Rx tablet vomiting #30 tabs prochlorperazine maleate 10 mg 10 mg PO Q6H PRN nausea and 06/19/24 Unknown Rx tablet vomiting #30 tabs Allergy/AdvReac Type Severity Reaction Status Date / Time No Known Allergies Allergy Verified 12/13/24 10:33 Family History Sister Cancer Mother Cancer Surgical History (Updated 12/02/24 @ 14:15 by Laura Davison) History of insertion of central venous access port Hx of surgical procedure History of transurethral resection of bladder tumor (TURBT) Hx of peritonsillar abscess drainage Hx of tonsillectomy Social History Smoking Status: Never smoker alcohol intake: never substance use type: does not use seatbelt use: always do you feel safe at home: Yes Review of Systems (Anesthesia) ROS Narrative System reviewed and no additional complaints, except as documented.
[2024-12-13] MEDS: Lactated Ringers 1,000 ML 15 ML IV (10:46)
[2024-12-13] MEDS: Lactated Ringers 500 ML IV (12:21)
[2024-12-13] MEDS: Lidocaine 1% (5 ml sdv) 5 ML Vial IV (12:24)
--- NOTE | 2024-12-13 12:25 | BLA_PTH ---
PATIENT: BETHANY WILKINS LOC: [facility] [place] U#:[id number] AGE/SX: 69/M ROOM: RE12/13/[address]: Dr. Pankaj Lou MD : [id number] BED: DIS: 12/13/2024 SPEC #: [id number] RECD: 12/17/24 08:01 STATUS: CLARA JIMENEZ #: [id number] RADHA: 12/13/24 12:[address]: Pankaj Lou DEPT: SURGICAL PATHOLOGY RECD BY: Renaldo Roblero Tissues: A - Urinary bladder, NOS Procedures: Surgery Specimen Level IV HEADER OPERATION: Cysto, Litholapaxy, laser PRE-OP DIAGNOSIS: Bladder cancer TISSUE SUBMITTED: A- Necrotic bladder tissue MICROSCOPIC DIAGNOSIS A. Bladder, necrotic bladder tissue, debridement: Necrotic tissue with dystrophic calcification. MICROSCOPIC DESCRIPTION Slides are reviewed. GROSS DESCRIPTION A. Received in formalin labeled with the patient's name and date of . Designated as necrotic bladder tissue is a 3.8 g, 4.7 x 3.4 x 0.7 cm aggregate of irregular, restrepo-yellow to light brown, firm to rubbery tissue fragments. Entirely submitted in 4 cassettes. AR 12/17/2024 CPT:01248
[2024-12-13] MEDS: Cefazolin 1 GM/5 ML Vial 2 GM IV (12:27)
--- NOTE | 2024-12-13 12:59 | PCM.OPRPT ---
Operative Report (Standard) Operative Information Date of Procedure: 12/13/24 Pre-Operative Diagnosis: Invasive bladder cancer Post-Operative Diagnosis: Resection of bladder mass Surgery/Procedure Performed: Cystoscopy and laser of a large bladder stone greater than 3 cm in size, transurethral resection of a very large bladder mass greater than 5 cm in size manager global communications: No Type of Anesthesia: General RN Documented Start/Stop Times: Operation Date: 12/13/24 12:25 Case Time Into Pre-Op 12/13/24 10:16 Out of Pre-Op 12/13/24 12:15 Anesthesia Start 12/13/24 12:20 Into Room 12/13/24 12:20 Procedure Start 12/13/24 12:36 Procedure End 12/13/24 12:59 Procedure Start Time: 12:36 Procedure Stop Time: 12:59 Select all DRAINS/GRAFTS/IMPLANTS that apply: Drains Drain details: 20 [place]se Fung Estimated Blood Loss: Minimal Specimen collected: Yes Description of specimen(s) removed: Necrotic bladder tissue and bladder stones Description of surgery: Indication is a 69-year-old male was found to have invasive bladder cancer and he decided to have radiation therapy and chemotherapy to treat this cancer he was having a lot of symptoms and discomfort so did a cystoscopy in the office and it shows a large necrotic mass in the back of the bladder with lots of stone stuck in the bladder so can take him to surgery today lasered off the bladder stones and resect his necrotic mass Patient was taken back to the operating room after smooth induction of anesthesia he was placed in dorsolithotomy position penis and testicles were prepped and draped in usual sterile fashion went into the bladder with a 26 [place]ore[place] continuous-flow Olympus bipolar resectoscope I then used a laser bridge right in the back of the bladder there was a large necrotic mass and on top of the mass it was all covered with dystrophic calcifications or throughout the mass I used the laser to break up the bladder stone mass and this broke the stones up into little tiny pieces got all this flushed out and then I switched over to the resectoscope and started resecting this mass part to be a hard mass that was necrotic as there was resecting it resected really deep into the bladder. After resection was done I got as much of the hard masses I could get out of the possible we sent out the specimen is possible is just all necrotic tissue after radiation, Fung catheter was put into the bladder for direct gravity drainage he will need a catheter for 2 weeks to let the bladder heal up patient is anesthetic was reversed is taken back to the PACU in good condition and will go home with antibiotics and pain medicine for 2 weeks. Surgical Findings: Large bladder stones attached to necrotic tissue in the back of the bladder Complications Complications: No Admit VTE Documentation VTE Present on Admission: No VTE Mechan Device Prophylaxis: SCD's VTE Pharm Prophylaxis ordered?: No
[2024-12-13] MEDS: fentaNYL 100 MCG/2 ML Ampul IV (13:00)
--- NOTE | 2024-12-13 13:02 | DCINST_ITS ---
Discharge Instructions DC O2, CPAP, BIPAP needs Home O2 Discharge instructions: No Dressing / Incision Discharge Activity: No Restrictions, May Not Drive and May Shower Return to work on:: 01/10/25 May shower in (days): 2 Dressing / Incision Call your doctor if your incision/area has: Sudden Increased Bleeding Call your doctor if you observe: Fever of 101 or Higher and Uncontrolled pain Cleanse incision/area with: Soap & Water Catheter: Fung to leg bag and Fung to large bag Drain: [place] Follow Up Care Test Results: Test results from this visit will be discussed in further detail at your follow- up appointment, if applicable. Discharge Plan Admission Attending Provider: Pankaj Lou Primary Care Provider: Seth Lozano NP Instructions Print Language: Congolese Discharge Orders/Prescriptions Prescriptions: No Action prochlorperazine maleate 10 mg tablet 10 mg PO Q6H PRN (Reason: nausea and vomiting) Qty: 30 2RF ondansetron 8 mg tablet,disintegrating 8 mg PO Q8H PRN (Reason: nausea and vomiting) Qty: 30 2RF lidocaine-prilocaine 2.5-2.5 % cream 1 applic topical ONCE PRN (Reason: port access) 30 Days Qty: 30 2RF Referrals / Follow Up: Seth Lozano NP, BUILDINGS AND GROUNDS SUPERINTENDENT-C [Primary Care Provider] - Disposition Disposition (needs filled in before D/C Order can be placed): Home, Self Care
--- NOTE | 2024-12-13 13:03 | DCINST_ITS ---
Discharge Instructions DC O2, CPAP, BIPAP needs Home O2 Discharge instructions: No Dressing / Incision Discharge Activity: Return to Normal Activity and May Not Drive (while taking narcotic pain medications.) Return to work on:: 01/10/25 May shower in (days): 2 Dressing / Incision Call your doctor if your incision/area has: Sudden Increased Bleeding Call your doctor if you observe: Fever of 101 or Higher and Uncontrolled pain Cleanse incision/area with: Soap & Water Catheter: Fung to leg bag and Fung to large bag Drain: [place] Follow Up Care Please Follow Up With: Pankaj Lou MD When: Call [phone] for an appointment Test Results: Test results from this visit will be discussed in further detail at your follow- up appointment, if applicable. Discharge Plan Admission Attending Provider: Pankaj Lou Primary Care Provider: Seth Lozano NP Instructions Print Language: Mohawk Discharge Orders/Prescriptions Prescriptions: No Action prochlorperazine maleate 10 mg tablet 10 mg PO Q6H PRN (Reason: nausea and vomiting) Qty: 30 2RF ondansetron 8 mg tablet,disintegrating 8 mg PO Q8H PRN (Reason: nausea and vomiting) Qty: 30 2RF lidocaine-prilocaine 2.5-2.5 % cream 1 applic topical ONCE PRN (Reason: port access) 30 Days Qty: 30 2RF Referrals / Follow Up: Seth Lozano NP, HEAVY EQUIPMENT SERVICE MANAGER-C [Primary Care Provider] - Disposition Disposition (needs filled in before D/C Order can be placed): Home, Self Care
[2024-12-14 21:21] VITALS: BP 136/74; PULSE 61; RESP 16; TEMP 36.1; O2SAT 99
--- NOTE | 2024-12-14 21:21 | PCM.PRE.AN2 ---
ASA Classification* ASA Classification ASA Classification: 3 and E Assessment & Plan Anesthesia* Anesthesia Assessment Anesthesia Assessment: Discussed sedation and/or anesthesia options, risks, benefits, and alternatives with patient/parents/legal guardian/POA. Questions invited. The patient/parents/legal guardian/POA seems to understand and agrees to proceed with anesthesia plan. Reviewed the physical assessment, medical history, allergy history and patient home medications list prior to surgery/procedure/anesthetic and documented any changes. Performed airway and anesthesia risk assessments. Anesthesia Type Anesthesia Type: General Anesthesia Focused Assessment* Temperature: 97 F Pulse Rate: 61 Blood Pressure: 136/74 Respiratory Rate: 16 Pulse Ox: 99 Airway Assessment Mouth opens: >3 cm Mallampati Score: II Labs Anesthesia Preop lab: CBC WBC 18.6 K/mm3 (4.4-11.0) H 12/14/24 17:52 12/14/24 RBC 4.22 M/mm3 (4.6-6.2) L 12/14/24 17:52 12/14/24 Hgb 13.4 g/dL (13.0-16.5) 12/14/24 17:52 12/14/24 Hct 37.3 % (40-54) L 12/14/24 17:52 12/14/24 Plt Count 257 K/mm3 (150-450) 12/14/24 17:52 12/14/24 CHEMISTRY Potassium 4.4 mmol/L (3.3-5.1) 12/14/24 17:52 12/14/24 Sodium 135 mmol/L (133-145) 12/14/24 17:52 12/14/24 Magnesium 2.1 mg/dL (1.5-2.2) 08/12/24 09:38 08/12/24 Phosphorus 2.6 mg/dL (2.7-4.5) L 08/12/24 09:38 08/12/24 BUN 45 mg/dL (4-19) H 12/14/24 17:52 12/14/24 Creatinine 3.92 mg/dL (0.70-1.20) H 12/14/24 17:52 12/14/24 Glucose 159 mg/dL (70-99) H 12/14/24 17:52 12/14/24 COAG PT 14.2 SECONDS (11.7-14.9) 07/24/24 19:25 07/24/24 Pre-Assessment Diagnosis/Proposed Procedure Planned Operative Procedure(s): Cysto,Litholapaxy,Laser 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 - program support specialist: 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 - program support specialist Hx Hospitalization Yes: 01/2024 POSTOP BLADDER 12/02/24 14:16 SURG Any Problems With Anesthesia No 12/02/24 14:16 Cholinesterase deficiency No 12/02/24 14:16 You/Your Family Experience No 12/02/24 14:16 fever (hyperthermia) with Relationship Recent Exposure to Contagious No 12/13/24 10:47 Disease Does patient have nerve No 12/02/24 14:16 stimulator Patient instructed to have device shut off --Does patient have Pacemaker No 12/13/24 10:42 or ICD? When Was Last Pacemaker Check QUESTION #4 FULL TEXT: You/Your Family Experience fever (hyperthermia) with Anesthesia Last Oral Intake Last Oral intake: Last Oral Intake NPO since 21:30 12/13/24 10:42 Meds taken in AM with sips of No 12/13/24 10:42 water? Meds patient instructed to take am of surgery PONV PONV - program support specialist: PONV - program support specialist Female No 12/02/24 14:16 HX of Motion Sickness Yes 12/02/24 14:16 HX of N/V After Surgery No 12/02/24 14:16 Non-Smoker Yes 12/02/24 14:16 Duration of Surgery greater Yes 12/02/24 14:16 than 60 minutes Number of Risk Factors 3 12/02/24 14:16 PONV Score Moderate Risk 12/02/24 14:16 Height & Weight Height & Weight: Anesthesia: Height & Weight Height 5 ft 5 in 12/13/24 10:42 Weight: 61.1 kg 12/13/24 10:42 Body Mass Index (BMI) 22.4 12/13/24 10:42 Respiratory Assessment Respiratory Assessment - program support specialist: Respiratory Tract Infection Hx - program support specialist Hx Respiratory Tract Infection No 12/02/24 14:16 STOP Sleep Apnea STOP Sleep Apnea - program support specialist: STOP Sleep Apnea - program support specialist Hx Hypertension No 12/02/24 14:16 Hx Sleep Apnea No 12/02/24 14:16 CPAP No 12/02/24 14:16 BIPAP Do you snore loudly (louder Yes 12/02/24 14:16 than talking or can be heard Do you often feel tired/ No 12/02/24 14:16 fatigued/ sleepy during daytime? Has anyone observed you stop No 12/02/24 14:16 breathing during sleep? STOP Results Negative 12/13/24 13:07 QUESTION #5 FULL TEXT : Do you snore loudly (louder than talking or can be heard through closed doors)? 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 Specify any problems Hx of Preganancy in last 3 N/A 12/02/24 14:16 Months Nurse Filling Out Transfusion MGRIFFITH 12/02/24 14:16 & Questions: Date: 12/02/24 12/02/24 14:16 Time: 14:18 12/02/24 14:16 Patient unable to answer at this time (ie. confused, unrespo /Reproduction History /Reproductive History - program support specialist: /Reproductive Hx- program support specialist Hx Now No 12/02/24 14:16 Gestational Age (in weeks): EDC: Hx Hx Para Hx Section SAB No 06/12/24 15:10 PFSH Medical History Cancer Mediastinal lymphadenopathy Loss of hearing Wears glasses Gout Bladder disease Injury of head and neck Leg cramps Non-smoker Home Medications ?Medication ?Instructions ?Recorded ?Last Taken ?Type lidocaine-prilocaine 2.5 %-2.5 % 1 applic topical ONCE PRN port 06/19/24 Unknown Rx topical cream access 30 days #30 grams ondansetron 8 mg disintegrating 8 mg PO Q8H PRN nausea and 06/19/24 Unknown Rx tablet vomiting #30 tabs prochlorperazine maleate 10 mg 10 mg PO Q6H PRN nausea and 06/19/24 Unknown Rx tablet vomiting #30 tabs ciprofloxacin HCl 500 mg tablet 500 mg PO BID #14 tabs 12/13/24 Unknown Rx (Cipro) oxycodone 5 mg tablet 5 mg PO Q6H PRN pain 7 days #20 12/13/24 Unknown Rx tabs Allergy/AdvReac Type Severity Reaction Status Date / Time No Known Allergies Allergy Verified 12/14/24 16:27 Family History Sister Cancer Mother Cancer Surgical History History of insertion of central venous access port Hx of surgical procedure History of transurethral resection of bladder tumor (TURBT) Hx of peritonsillar abscess drainage Hx of tonsillectomy Social History Smoking Status: Never smoker alcohol intake: never substance use type: does not use seatbelt use: always do you feel safe at home: Yes Review of Systems (Anesthesia) ROS Narrative System reviewed and no additional complaints, except as documented.
[2024-12-14 23:37] VITALS: BP 148/80; PULSE 77; RESP 16; TEMP 36.3; O2SAT 100
--- NOTE | 2024-12-14 23:37 | PCM.POST.ANE ---
Anesthesia: Postop Eval I Current Vital Signs Temperature: 97.3 F Pulse Rate: 77 Blood Pressure: 148/80 Respiratory Rate: 16 Pulse Ox: 100 Assessment Airway patent: Yes Spontaneous unlabored respirations: Yes nausea: No Vomiting: No Anesthesia Complication: No Fluid Hydration Crystalloid volume administer (ml): 1,000 Total IV fluid infused: 1,000 Progress Note Anesthesia document: Postop Eval 1 completed: Yes
--- NOTE | 2024-12-14 23:38 | PCM.POSTANE2 ---
Anesthesia Postop Eval I Sum Postop Eval Completion status Anesthesia document: Postop Eval 1 completed: Yes Anesthesia Postop Eval I Summary Anesthesia Postop Eval I Summary: Anesthesia Postop Eval I: Assessment Summary Airway patent Yes 12/14/24 23:37 Spontaneous unlabored Yes 12/14/24 23:37 respirations Mental status nausea No 12/14/24 23:37 Vomiting No 12/14/24 23:37 Anesthesia Postop Eval I: Fluid Summary Crystalloid volume administer 1,000 12/14/24 23:37 (ml) Colloids volume administered ( ml) Blood Product volume administered (ml) Total IV fluid infused 1,000 12/14/24 23:37 Anesthesia Postop Eval I: Summary Notes Anesthesia Complication No 12/14/24 23:37 Anesthesia Complication Comment: Post-operative progress note Anesthesia: Postop Eval II Evaluation Mental status: Awake Pain Level: 0 nausea: No Vomiting: No
== END 2024-12-13 15:27 | disposition home or self-care (01) ==
LOC: SDC 10:14 → AC 10:15
PROVIDERS: PCP Nurse Practitioner Family; Referring Provider Urology; Visit Provider Urology
PROC: (CPT 52240; principal; 2024-12-13 12:15)
PROC: 0TBB8ZZ Excision of Bladder, Via Natural or Artificial Opening Endoscopic (ICD-10-PCS; CPT 52240; 2024-12-13 12:15)
DX: C67.2 Malignant neoplasm of lateral wall of bladder (principal); N21.0 Calculus in bladder
CPT/HCPCS: 52240; 00912; A4216; J2405

== ENCOUNTER 2024-12-14 16:23 | Inpatient (IN) | payer MEDICARE, OTHER, SELFPAY ==
[2024-12-14] VITALS (12 sets, daily range): BP systolic 124–151; BP diastolic 70–80; PULSE 61–81; RESP 16–31; TEMP 36.3–37.1; O2SAT 98–100; BMI 23.4
[2024-12-14] MEDS: 0.9% Normal Saline (1000mL) 1,000 ML 999 ML IV (17:44)
--- NOTE | 2024-12-14 18:00 | EX.ED.GUMALE ---
HPI History of Present Illness Chief Complaint: Complaint Narrative Narrative: 59-year-old male past medical history of bladder carcinoma, presents with his because of suprapubic abdominal pain and decreased drainage from his Fung catheter. He and his relate history that he had surgery by Dr. Lou yesterday. He had previously been diagnosed with bladder carcinoma and necrotic tumor removed back in January of last year, approximately 10 months ago. He also had a bladder stone. They state that he followed up with his facility maintenance technician/oncologist, and they referred him better Dr. Lou for them to remove the bladder stone after he had chemotherapy and radiation therapy. He had his states that yesterday during surgery was actually found to be a cluster of stone that was removed, and that urology had scraped the noted carotic tumor area as well. His states that he came home yesterday and prior to discharge had drank a foam couple of water, came home and drink coffee and other liquids, but has had decreased p.o. intake since then. No recent fevers or chills, no nausea or vomiting. However, overnight he only had approximately 250 mL of urine that was darker in nature in his Fung catheter bag. He states that he got sharp pain in his suprapubic area when he was in the emergency department, but his Fung catheter is not draining anything. PFSH PFSH Medical History Cancer Mediastinal lymphadenopathy Loss of hearing Wears glasses Gout Bladder disease Injury of head and neck Leg cramps Non-smoker Home Medications ?Medication ?Instructions ?Recorded ?Last Taken ?Type lidocaine-prilocaine 2.5 %-2.5 % 1 applic topical ONCE PRN port 06/19/24 Unknown Rx topical cream access 30 days #30 grams ondansetron 8 mg disintegrating 8 mg PO Q8H PRN nausea and 06/19/24 Unknown Rx tablet vomiting #30 tabs prochlorperazine maleate 10 mg 10 mg PO Q6H PRN nausea and 06/19/24 Unknown Rx tablet vomiting #30 tabs ciprofloxacin HCl 500 mg tablet 500 mg PO BID #14 tabs 12/13/24 Unknown Rx (Cipro) oxycodone 5 mg tablet 5 mg PO Q6H PRN pain 7 days #20 12/13/24 Unknown Rx tabs Allergy/AdvReac Type Severity Reaction Status Date / Time No Known Allergies Allergy Verified 12/14/24 16:27 Family History Sister Cancer Mother Cancer Surgical History History of insertion of central venous access port Hx of surgical procedure History of transurethral resection of bladder tumor (TURBT) Hx of peritonsillar abscess drainage Hx of tonsillectomy Social History Smoking Status: Never smoker alcohol intake: never substance use type: does not use seatbelt use: always do you feel safe at home: Yes ROS ROS ED ROS Narrative Review of systems positive for decreased Fung output/urination. No fevers or chills, no nausea or vomiting. Mild suprapubic discomfort. No diarrhea. EXAM Physical Exam Narrative Exam Narrative: Afebrile. Vital signs noted. Nontoxic-appearing. Cardiovascular examination feels regular rate and rhythm. Lungs are clear to auscultation bilaterally. Abdomen is soft and nontender with positive bowel sounds. No guarding or rebound. Mild suprapubic discomfort. Chaperoned examination does show Fung catheter in place, 20 Luxembourgish, with no drainage in Fung catheter bag. Const Vital Signs: 12/14/24 16:23 12/14/24 16:27 12/14/24 17:27 Temperature 97.7 F L 98.7 F 97.8 F Temperature Source Oral Oral Oral Pulse Rate 81 70 66 Respiratory Rate 16 17 18 Blood Pressure 142/77 H 141/76 H 135/72 H Blood Pressure Mean 98 97 93 Pulse Ox 99 100 100 Oxygen Delivery Method Room Air Room Air 12/14/24 18:00 12/14/24 19:00 12/14/24 20:00 Temperature 98.1 F 98.6 F 98.3 F Temperature Source Oral Oral Oral Pulse Rate 61 80 73 Respiratory Rate 18 16 31 H Blood Pressure 151/72 H 124/80 H 139/72 H Blood Pressure Mean 98 94 94 Pulse Ox 100 98 100 Oxygen Delivery Method Room Air Room Air Room Air 12/14/24 20:15 Temperature Temperature Source Pulse Rate 70 Respiratory Rate 24 H Blood Pressure 149/74 H Blood Pressure Mean 99 Pulse Ox 99 Oxygen Delivery Method MDM MDM MDM Narrative Medical decision making narrative: Differential diagnosis includes but not limited to urinary retention versus Fung catheter problem versus displacement of Fung catheter versus decreased urine output including acute kidney failure. Per RN, patient was bladder scanned twice at 0 and 1 mL. I will obtain CBC and BMP to look at his creatinine and BUN. Fung catheter will be irrigated as well. He was bolused normal saline 1 L intravenously. I reviewed his laboratory work and he has a leukocytosis of 18.6 with hemoglobin normal at 13.4, hematocrit 37.3. Platelet count normal at 257. BMP is significant for carbon dioxide low at 19.6, glucose elevated at 159 with a normal anion gap of 15. BUN is 45 with creatinine elevated severely at 3.92. With suspicion for bladder outlet obstruction given his elevated creatinine, RN reports that he attempted flush with 250 mL of normal saline, but was unable to draw back any fluid. Hence, I did add a lactic acid as well as blood cultures given his leukocytosis. CT of the abdomen pelvis was obtained with IV contrast. I discussed the results with Dr. Simeon with the radiology. He states that there is a moderate amount of free fluid in the pelvis as well as air bubbles around the liver which is suggestive of perforated viscus. I asked specifically about the bladder, and he states that the bladder appears intact currently with Fung catheter in place. There may be 250 mL of fluid without extravasation. With concern for bladder perforation, and he is postoperative day [address] Lou, I discussed the patient with urology, Dr. Lou, who is suspicious for bladder perforation and would like to take the patient to the OR to look at the bladder. He also requested Rocephin be started. 2 g were ordered. Disposition is ER to the OR. Patient is in stable condition. History & Record Review Discussion w/independent historian: Patient and Family Additional record(s) reviewed:: Prior labs Lab Data Attestation: I reviewed the patient's lab results. Labs: Laboratory Results - last 24 hr 12/14/24 17:52 WBC 18.6 H RBC 4.22 L Hgb 13.4 Hct 37.3 L MCV 88.4 MCH 31.8 MCHC 35.9 RDW Std Deviation 41.5 RDW Coeff of Lori 12.8 Plt Count 257 MPV 8.9 Immature Gran % (Auto) 0.600 Neut % (Auto) 93.5 H Lymph % (Auto) 2.4 L Cannon % (Auto) 3.4 Eos % (Auto) 0.0 Baso % (Auto) 0.1 Absolute Neuts (auto) 17.3 H Absolute Lymphs (auto) 0.45 L Nucleated RBC % 0 Sodium 135 Potassium 4.4 Chloride 101 Carbon Dioxide 19.6 L Anion Gap 15 BUN 45 H Creatinine 3.92 H Estim Creat Clear Calc 15.47 L Est GFR (MDRD) Non-Af 16 L BUN/Creatinine Ratio 11.6 Glucose 159 H Calcium 9.0 Radiography Diagnostic Testing: Clinical Impression(s) from Imaging Studies Abdomen/Pelvis CT 12/14/24 18:10 IMPRESSION: Free air bubbles around the liver. Moderate to prominent amount of free fluid. Perforated viscus is suggested. Perforated peptic ulcer is the most common cause, although other instances of perforated viscus not involving the stomach and duodenum are also seen from time to time. Reading [facility] Management Discussion w/another healthcare provider: Corner Block Cutter (Dr. Lou, allergy) Discharge Plan Dx/Rx/DC Orders Clinical Impression: Acute kidney failure, Bladder cancer, Decreased urine output, Free fluid in pelvis Disposition Disposition: Acute Care Hospital [facility]
[2024-12-14 18:05] LABS: Hematocrit 37.3 % (40-54); Hemoglobin 13.4 g/dL (13.0-16.5); Immature Granulocytes Count 0.110 X10^3/uL (0.0-0.0); Mean Corp Hgb Conc 35.9 g/dL (32-36); Mean Corpuscular Volume 88.4 fL (80-94); Mean Platelet Vol. 8.9 fl (6.2-12.0); NRBC Flagged by Analyzer 0 % (0-5); POSITIVE DIFFERENTIAL YES; Platelet Count 257 K/mm3 (150-450); RBC Distribution Width CV 12.8 % (11.6-14.6); RBC Distribution Width SD 41.5 fl (35.1-43.9); Red Blood Count 4.22 M/mm3 (4.6-6.2); White Blood Count 18.6 K/mm3 (4.4-11.0)
--- NOTE | 2024-12-14 18:10 | CT_ITS ---
PROCEDURE: Abdomen and pelvis CT with IV contrast 12/14/2024 REASON FOR EXAM: POSTOPERATIVE SUPRAPUBIC PAIN TECHNIQUE: Procedure Code: [id number] Modality: CT Procedure: ABDOMEN/PELVIS W IV CONT ONLY Coronal and Sagittal reconstruction series were provided. CONTRAST: Isovue 370 VOLUME: 75 mL One or more dose reduction techniques were used (e.g., Automated exposure control, adjustment of the mA and/or kV according to patient size, use of iterative reconstruction technique. RADIATION DOSE SUMMARY: CTDlvol: 9.97, 9.83 and 9.93 mGy DLP: 905.57 mGycm COMPARISON: CT October 31, 2019 FINDINGS: Lung bases: Trace pleural effusions tiny amount of associated atelectasis Liver: No intrinsic liver abnormality. Gallbladder: Unremarkable gallbladder. Spleen: Unremarkable. Pancreas: Normal Adrenals: Normal Kidneys: Normal Bladder: Normal as seen. Fung catheter in place. Reproductive Organs: Prostate enlarged measuring 5.2 cm Bowel: Moderate free fluid in the pelvis and a few bubbles of air around the liver indicate viscus perforation. Stomach is moderately distended with fluid and air. Perforated peptic ulcer should be least 1 consideration. However, other perforated viscus can be seen, although less frequently. Nondilated fluid-filled small bowel loops mid to distal small bowel of uncertain significance Appendix: Not clearly identified. Lymph nodes: No enlarged lymph nodes by CT criteria are appreciated Vasculature: Scattered calcific aortic plaque Peritoneum / Retroperitoneum: Free air bubbles seen anterior to the liver. Moderate free fluid is seen around the liver and spleen with large pocket in the right lateral gutter Bones: No aggressive process. CT/Abdomen/Pelvis W IV Cont ONLY IMPRESSION: Free air bubbles around the liver. Moderate to prominent amount of free fluid. Perforated viscus is suggested. Perforated peptic ulcer is the most common cause, although other instances of perforated v iscus not involving the stomach and duodenum are also seen from time to time. Reading Location: [facility]
--- NOTE | 2024-12-14 18:19 | ED.RN ---
Per Dr Muller bladder scanned pt for 15 mL. Irrigatted bladder with 200 CC. Fluid went in with 60 cc syringe with no difficulty but some cramping and discomfort with pt. 0 mL return via cage. Rebladder scanned and initial scan was 57 mL. following scan was [address] Muller notified.
[2024-12-14 19:02] LABS: Anion Gap 15 (5-15); BUN 45 mg/dL (4-19); BUN/Creat Ratio 11.6 RATIO (10-20); Calcium,Total 9.0 mg/dL (7.6-11.0); Carbon Dioxide 19.6 mmol/L (21.0-32.0); Chloride 101 mmol/L (98-108); Estimated Creatinine Clearance 15.47 ml/min (50-250); Glucose 159 mg/dL (70-99); Potassium 4.4 mmol/L (3.3-5.1)
[2024-12-14] MEDS: Ceftriaxone 2 GM in 0.9% Normal Saline (50mL MB+) 50 ML IV (20:25)
--- NOTE | 2024-12-14 20:42 | PCM.HP.STD ---
HPI - General General Date of Service: 12/14/24 Chief Complaint: No urine output HPI Narrative BETHANY WILKINS, is a 69 M who presents to the ER he had a resection of a very large necrotic mass from his bladder and also stones that were stuck to the necrotic mass the bladder was very thin on resection so he went home with a catheter, today his called me and reported that he stopped having urine output so I told her to take him to the emergency room to flush the catheter they flushed it flushed easily no return of urine the emergency room doctor got a CAT scan I reviewed the CAT scan he is got free fluid in the pelvis this is suspicious for bladder rupture. Plan to take him back to surgery for diagnostic cystoscopy possible open exploration. PFSH Medical History Cancer Mediastinal lymphadenopathy Loss of hearing Wears glasses Gout Bladder disease Injury of head and neck Leg cramps Non-smoker Home Medications ?Medication ?Instructions ?Recorded ?Last Taken ?Type lidocaine-prilocaine 2.5 %-2.5 % 1 applic topical ONCE PRN port 06/19/24 Unknown Rx topical cream access 30 days #30 grams ondansetron 8 mg disintegrating 8 mg PO Q8H PRN nausea and 06/19/24 Unknown Rx tablet vomiting #30 tabs prochlorperazine maleate 10 mg 10 mg PO Q6H PRN nausea and 06/19/24 Unknown Rx tablet vomiting #30 tabs ciprofloxacin HCl 500 mg tablet 500 mg PO BID #14 tabs 12/13/24 Unknown Rx (Cipro) oxycodone 5 mg tablet 5 mg PO Q6H PRN pain 7 days #20 12/13/24 Unknown Rx tabs Allergy/AdvReac Type Severity Reaction Status Date / Time No Known Allergies Allergy Verified 12/14/24 16:27 Family History Sister Cancer Mother Cancer Surgical History History of insertion of central venous access port Hx of surgical procedure History of transurethral resection of bladder tumor (TURBT) Hx of peritonsillar abscess drainage Hx of tonsillectomy Social History Smoking Status: Never smoker alcohol intake: never substance use type: does not use seatbelt use: always do you feel safe at home: Yes ROS Constitutional Constitutional: Denies chills, fever(s) or malaise Eyes Eyes: Denies blurry vision or change in vision ENT HEENT: Reports none Cardiovascular Cardiovascular: Denies chest pain or palpitations Respiratory/Chest Respiratory/Chest: Denies cough or shortness of breath with exertion Gastrointestinal Gastrointestinal: Denies abdominal pain, constipation or diarrhea Musculoskeletal Musculoskeletal: Denies back pain, joint stiffness or joint swelling Integumentary Integumentary: Denies dry skin, jaundice, lesions or rash Neurologic Neurologic: Denies confusion, syncope or weakness Psychiatric Psychiatric: Reports none; Denies anxiety or depression Endocrine Endocrinology: Denies excessive sweating, fatigue or flushing Hematologic/Lymphatic Hematologic/Lymphatic: Denies anemia, easy bleeding or easy bruising Vital Signs Vital Signs Vital Signs: 12/14/24 16:23 12/14/24 16:27 12/14/24 17:27 Temperature 97.7 F L 98.7 F 97.8 F Temperature Source Oral Oral Oral Pulse Rate 81 70 66 Respiratory Rate 16 17 18 Blood Pressure 142/77 H 141/76 H 135/72 H Blood Pressure Mean 98 97 93 Pulse Ox 99 100 100 Oxygen Delivery Method Room Air Room Air 12/14/24 18:00 12/14/24 19:00 12/14/24 20:00 Temperature 98.1 F 98.6 F 98.3 F Temperature Source Oral Oral Oral Pulse Rate 61 80 73 Respiratory Rate 18 16 31 H Blood Pressure 151/72 H 124/80 H 139/72 H Blood Pressure Mean 98 94 94 Pulse Ox 100 98 100 Oxygen Delivery Method Room Air Room Air Room Air 12/14/24 20:15 Temperature Temperature Source Pulse Rate 70 Respiratory Rate 24 H Blood Pressure 149/74 H Blood Pressure Mean 99 Pulse Ox 99 Oxygen Delivery Method Weight Weight: 64.002 kg Body Mass Index (BMI) 23.4 Physical Exam Narrative Lower abdomen is tender on exam Const alert and oriented x3 General Appearance: cooperative HEENT normocephalic and head/scalp atraumatic Eyes PERRL and EOMs intact bilaterally Neck supple, no JVD and no carotid bruits Resp normal respiratory effort, normal air movement and clear to auscultation bilaterally Cardio regular rate and no murmurs GI normal to inspection, nondistended, normoactive bowel sounds and soft to palpation Extremity normal capillary refill General Extremity: no tenderness to palpation of joints or extremities; Negative for edema Skin no rashes or lesions noted and no wounds General Skin Exam: no breakdown Neuro CN's II-XII intact bilaterally Psych affect normal Appearance: appropriate Results Lab / Micro Data 12/14/24 17:52 12/14/24 17:52 Labs: Laboratory Results - last 24 hr 12/14/24 17:52: WBC 18.6 H, RBC 4.22 L, Hgb 13.4, Hct 37.3 L, MCV 88.4, MCH 31.8, MCHC 35.9, RDW Std Deviation 41.5, RDW Coeff of Lori 12.8, Plt Count 257, MPV 8.9, Immature Gran % (Auto) 0.600, Neut % (Auto) 93.5 H, Lymph % (Auto) 2.4 L, Andrews % (Auto) 3.4, Eos % (Auto) 0.0, Baso % (Auto) 0.1, Absolute Neuts (auto) 17.3 H, Absolute Lymphs (auto) 0.45 L, Nucleated RBC % 0, Sodium 135, Potassium 4.4, Chloride 101, Carbon Dioxide 19.6 L, Anion Gap 15, BUN 45 H, Creatinine 3.92 H, Estim Creat Clear Calc 15.47 L, Est GFR (MDRD) Non-Af 16 L, BUN/Creatinine Ratio 11.6, Glucose 159 H, Calcium 9.0 Imaging Radiology Impression Abdomen/Pelvis CT 12/14/24 18:10 IMPRESSION: Free air bubbles around the liver. Moderate to prominent amount of free fluid. Perforated viscus is suggested. Perforated peptic ulcer is the most common cause, although other instances of perforated viscus not involving the stomach and duodenum are also seen from time to time. Reading [facility] Assessment & Plan Assessment/Plan (1) Free fluid in pelvis: (2) Decreased urine output: (3) Acute kidney failure: (4) Cancer: PLAN: 69-year-old male who was found to have invasive bladder cancer he underwent radiation treatment to the bladder developed a large necrotic mass in the area was radiated this was resected yesterday I am concerned about a bladder perforation and he taken back to surgery today for diagnostic cystoscopy possible open exploration.
--- OUTSIDE RECORDS SUMMARY | 2024-12-14 20:42 | XMS RPT_ITS | CCD ---
Author Organization [facility] Care Team Providers Care Supervising Fire Marshal Name Role Phone MARTA WAX PATTERN ASSEMBLER - ENAMEL SPRAYER, KYRIE Faye Primary Care Phys ician DR KEYANNA STEELE DO Attending Unavailable MARTA WAX PATTERN ASSEMBLER - ENAMEL SPRAYER, KYRIE Faye Primary Care U navailable MARTA WAX PATTERN ASSEMBLER - ENAMEL SPRAYER, KYRIE Faye Attending U navailable MARTA WAX PATTERN ASSEMBLER - ENAMEL SPRAYER, KYRIE Faye Primary Care U navailable MARTA WAX PATTERN ASSEMBLER - ENAMEL SPRAYER, KYRIE Faye Attending U navailable MARTA WAX PATTERN ASSEMBLER - ENAMEL SPRAYER, KYRIE Faye Primary Care U navailable MARTA WAX PATTERN ASSEMBLER - ENAMEL SPRAYER, KYRIE Faey Primary Care U navailable MARTA WAX PATTERN ASSEMBLER - ENAMEL SPRAYER, KYRIE Faye Attending U navailable Unavailable Primary Care Provider Unavailabl e WEIGHT, CHRISTOPHER Attending Unavailable Broome ASPARAGUS BUNCHER-C, Kyrie Sierra Primary Care Provi valeriy Dr. Donny Martinez MD Attending Provider Dr. Pankaj Lou MD Referring Provider Dr. Donny Martinez MD Referring Provider Marta ASPARAGUS BUNCHER-CKyrie Referring Provider Dr. Young Samuels DO Attending Provider Dr. Young Samuels DO Referring Provider Dr. Young Samuels DO Other Provider Dr. Jules Fuentes MD Attending Provider Dr. Mahad Villatoro DO Attending Provider Dr. Buddy Mccallum MD Attending Provider Dr. Buddy Mccallum MD Referring Provider Alessio MALLORY, Dr. Goodwin Other Provider Irving GARY, Dr. Tobin Referring Provider Jr ASPARAGUS BUNCHER-C, Shantel Attending Provider Sara MALLORY, Dr. Hines Attending Provider Sara MALLORY, Dr. Hines Referring Provider Tri GARY, Dr. Tyler Emergency Provider Marta ASPARAGUS BUNCHER-C, Kyrie Sierra Primary Care Provi valeriy Broome ASPARAGUS BUNCHER-C, Kyrie Sierra Referring Provider Juan MALLORY, Dr. Hines Attending Provider Irving GARY, Dr. Tobin Attending Provider Irving GARY, Dr. Tobin Referring Provider Tri GARY, Dr. Tyler Attending Provider Juan MALLORY, Dr. Hines Referring Provider [phone] Marta ASPARAGUS BUNCHER-C, Kyrie Sierra Primary Care Provi valeriy Broome ASPARAGUS BUNCHER-C, Kyrie Sierra Referring Provider Juan MALLORY, Dr. Hines Attending Provider Juan MALLORY, Dr. Hines Referring Provider Marta ASPARAGUS BUNCHER, Kyrie Sierra Primary Care Unav ailable Buddy Mccallum Referring Unavailable Buddy Mccallum Attending Unavailable Mahad Villatoro Attending Unavailable Marta ASPARAGUS BUNCHER, Kyrie Sierra Primary Care Unav ailable Mahad Villatoro Referring Unavailable Broome ASPARAGUS BUNCHER, Kyrie Sierra Primary Care Unav ailable Broome ASPARAGUS BUNCHER, Kyrie Sierra Referring Unav ailable Donny Martinez Attending Unavailable Broome ASPARAGUS BUNCHER, Kyrie Sierra Primary Care Unav ailable Jayson Bartlett Attending Unavailable Marta ASPARAGUS BUNCHER, Kyrie Sierra Primary Care Unav ailable Broome ASPARAGUS BUNCHER, Kyrie Sierra Referring Unav ailable Donny Martinez Attending Unavailable Broome ASPARAGUS BUNCHER, Kyrie Sierra Primary Care Unav ailable Broome ASPARAGUS BUNCHER, Kyrie Sierra Referring Unav ailable Jr ASPARAGUS BUNCHER, Shantel Attending Unavailable Marta ASPARAGUS BUNCHER, Kyrie Sierra Primary Care Unav ailable Broome ASPARAGUS BUNCHER, Kyrie Sierra Referring Unav ailable Prah, Donny Attending Unavailable Broome ASPARAGUS BUNCHER, Kyrie Sierra Primary Care Unav ailable Michelle Shaikh Attending Unavailable Broome ASPARAGUS BUNCHER, Kyrie Rigo Primary Care Unav ailable Mahad Villatoro Attending Unavailable Mahad Villatoro Referring Unavailable Broome ASPARAGUS BUNCHER, Kyrie Rigo Referring Unav ailable Marta ASPARAGUS BUNCHER, Kyrie Sierra Primary Care Unav ailable Prah, Donny Attending Unavailable Broome ASPARAGUS BUNCHER, Kyrie Rigo Primary Care Unav ailable Mahad Villatoro Attending Unavailable Mahad Villatoro Referring Unavailable Broome ASPARAGUS BUNCHER, Kyrie Sierra Referring Unav ailable Marta ASPARAGUS BUNCHER, Kyrie Sierra Primary Care Unav ailable Prah, Donny Attending Unavailable Marta ASPARAGUS BUNCHER, Kyrie Rigo [facility] Care Unav ailable Mahad Villatoro Attending Unavailable Mahad Villatoro Referring Unavailable Marta ASPARAGUS BUNCHER, Kyrie Sierra Primary Care Unav ailable Marta ASPARAGUS BUNCHER, Kyrie Sierra Referring Unav ailable Mahad Villatoro Attending Unavailable Marta ASPARAGUS BUNCHER, Kyrie Sierra Primary Care Unav ailable Marta ASPARAGUS BUNCHER, Kyrie Sierra Referring Unav ailable Prah, Donny Attending Unavailable Broome ASPARAGUS BUNCHER, Kyrie Sierra Primary Care Unav ailable Marta ASPARAGUS BUNCHER, Kyrie Sierra Referring Unav ailable Mahad Villatoro Attending Unavailable Mahad Villatoro Attending Unavailable Broome ASPARAGUS BUNCHER, Kyrie Sierra [facility] Unav ailable Broome ASPARAGUS BUNCHER, Kyrie Sierra [facility] Unav ailable SailorsDonny Referring Unavailable Sailors, Donny Attending Unavailable Broome ASPARAGUS BUNCHER, Kyrie Rigo Primary Care Unav Mahad Gonzalez Referring Unavailable Mahad Villatoro Attending Unavailable Marta ASPARAGUS BUNCHER, Kyrie Sierra Primary Care Rosaliav ailMahad Herrera Referring Unavailable Mahad Villatoro Attending Unavailable Broome ASPARAGUS BUNCHER, [facility] Care Unav ailable Buddy Mccallum Attending Unavailable Buddy Mccallum Consulting Unavailable Buddy Mccallum Referring Unavailable Marta ASPARAGUS BUNCHER, Kyrie Sierra Referring Unav ailable Broome ASPARAGUS BUNCHER, [facility] Unav ailBuddy Jackson Attending Unavailable Marta ASPARAGUS BUNCHER, Kyrie Sierra Primary Care Unav ailable Prah, Donny Referring Unavailable Prah, Donny Attending Unavailable Broome ASPARAGUS BUNCHER, Kyrie Irgo Primary Care Unav ailable Mahad Villatoro Referring Unavailable Mahad Villatoro Attending Unavailable Broome ASPARAGUS BUNCHER, Kyrie Sierra Primary Care Unav ailable Prah, Donny Attending Unavailable Dasha, Pankaj Mcgee Referring Unavailable Marta ASPARAGUS BUNCHER, Kyrie Sierra Primary Care Unav ailable Marta ASPARAGUS BUNCHER, Kyrie Sierra Referring Unav ailable Prah, Donny Attending Unavailable Marta ASPARAGUS BUNCHER, Kyrie Sierra Primary Care Unav ailable Brown, Young Referring Unavailable BrownYoung Attending Unavailable Marta ASPARAGUS BUNCHER, Kyrie Rigo Primary Care Unav ailable Brown, Young Referring Unavailable BrownYoung Attending Unavailable Marta ASPARAGUS BUNCHER, Kyrie Sierra Primary Care Unav ailable Dasha, Pankaj Mcgee Attending Unavailable Dasha, Pankaj Mcgee Referring Unavailable Marat ASPARAGUS BUNCHER, Kyrie Sierra Primary Care Unav ailable Dasha, Pankaj Mcgee Attending Unavailable Dasha, Pankaj Mcgee Admitting Unavailable Dasha, Pankaj Mcgee Referring Unavailable Broome ASPARAGUS BUNCHER, Kyrie Sierra Primary Care Unav ailable BrownMaluk Attending Unavailable Young Samuels Referring Unavailable Marta ASPARAGUS BUNCHER, Kyrie Sierra Primary Care Unav ailable Prah, Donny Attending Unavailable PraDonny knight Referring Unavailable Marta ASPARAGUS BUNCHER, Kyrie Sierra Primary Care Unav ailable Dasha, Pankaj Mcgee Referring Unavailable Sarabjit De León Attending Unavailable Broome ASPARAGUS BUNCHER, Kyrie Sierra Primary Care Unav ailable PrahDonny Referring Unavailable Young Samuels Attending Unavailable Marta ASPARAGUS BUNCHER, Kyrie Sierra Primary Care Unav ailable Broome ASPARAGUS BUNCHER, Kyrie Sierra Referring Unav ailable Jules Fuentes Attending Unavailable Marta ASPARAGUS BUNCHER, Kyrie Sierra Primary Care Unav ailable Broome ASPARAGUS BUNCHER, Kyrie Sierra Referring Unav ailable Mahad Villatoro Attending Unavailable Broome ASPARAGUS BUNCHER, Kyrie Sierra Primary Care Unav ailable Marta ASPARAGUS BUNCHER, Kyrie Sierra Referring Unav ailable Prah, Donny Attending Unavailable Marta ASPARAGUS BUNCHER, Kyrie Sierra Primary Care Unav ailable Brown, Young Referring Unavailable BrownYoung Attending Unavailable Malu Samuelsk Consulting Unavailable Marta ASPARAGUS BUNCHER, Kyrie Sierra Primary Care Unav ailable Prah, Donny Attending Unavailable Prah, Donny Referring Unavailable Kyrie Lozano NP Primary Care Unav ailable Pankaj Lou Attending Unavailable Pankaj Lou Referring Unavailable Marta HOWELL-C, Kyrie Sierra Primary Care Provi valeriy Dr. Donny Martinez MD Attending Provider Marta ASPARAGUS BUNCHER-C, Kyrie Sierra Referring Provider Dr. Mahad Villatoro DO Attending Provider Dasha MALLORY, Dr. Pankaj Mcgee Attending Provider [phone] Dasha MALLORY, Dr. Pankaj Mcgee Referring Provider Medications Current Medications Medication Drug Class(es) Dates Sig (Normalized) Sig (Original) ciprofloxacin 500 mg oral tablet (16 sources) Quinolone Antimicrobial Start: 12-13-2024 take 1 tablet by mouth twice daily Ciprofloxacin Hcl (Cipro) 500 mg tablet Active 500 mg PO TWICE A DAY 14 December 13, 2024 12:00am Start: 07-24-2024 End: 08-12-2024 take 1 tablet by mouth twice daily Ciprofloxacin Hcl 500 mg tablet Discontinued 500 mg PO TWICE A DAY 14 July 24, 2024 12:00am August 12, 2024 9:54am Start: 03-13-2024 End: 04-04-2024 take 1 tablet by mouth twice daily Ciprofloxacin Hcl (Cipro) 500 mg tablet Discontinued 500 mg PO TWICE A DAY 10 March 13, 2024 1:00am April 04, 2024 4:30pm Start: 01-31-2024 End: 02-28-2024 take 1 tablet by mouth twice daily Ciprofloxacin Hcl (Cipro) 500 mg tablet Discontinued 500 mg PO TWICE A DAY 14 January 31, 2024 12:00am February 28, 2024 2:49pm lidocaine 25 mg/ml / prilocaine 25 mg/ml topical cream (5 sources) Antiarrhythmic, Amide Local Anesthetic Start: 06-19-2024 Lidocaine-Prilocaine 2.5-2.5 % cream Active 1 NMA TOPICAL ONCE as needed for port access June 19, 2024 1:00am 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 Misc Medication (3 sources) Start: 12-26-2023 Misc Medication Super beta prostate, 0 Refill(s), 63.6 Start Date: 12/26/23 Status: Ordered ondansetron 8 mg disintegrating oral tablet (5 sources) Serotonin-3 Receptor Antagonist Start: 06-19-2024 take 1 tablet by mouth every eight hours as needed for nausea and vomiting Ondansetron 8 mg tablet,disintegrating Active 8 mg PO Q8H as needed for nausea and vomiting 30 2 June 19, 2024 1:00am 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 oxyCODONE hydrochloride 5 mg oral tablet (11 sources) Opioid Agonist Start: 12-13-2024 take 1 tablet by mouth every six hours as needed for pain Oxycodone 5 mg tablet Active 5 mg PO EVERY 6 HOURS as needed for pain 20 7 0 December 13, 2024 Malignant neoplasm Malignant (primary) neoplasm, unspecified Start: 03-13-2024 End: 04-04-2024 take 1 tablet by mouth every six hours as needed for pain Oxycodone 5 mg tablet Discontinued 5 mg PO EVERY 6 HOURS as needed for pain 14 7 0 March 13, 2024 April 04, 2024 4:30pm Malignant neoplasm of urinary bladder Malignant neoplasm of bladder, unspecified Start: 01-31-2024 End: 02-28-2024 take 1 tablet by mouth every six hours as needed for pain Oxycodone 5 mg tablet Discontinued 5 mg PO EVERY 6 HOURS as needed for pain 14 7 0 January 31, 2024 February 28, 2024 2:49pm Malignant neoplasm of urinary bladder Malignant neoplasm of bladder, unspecified prochlorperazine 10 mg oral tablet (5 sources) Phenothiazine Start: 06-19-2024 take 1 tablet by mouth every six hours as needed for nausea and vomiting Prochlorperazine Maleate 10 mg tablet Active 10 mg PO EVERY 6 HOURS as needed for nausea and vomiting 30 2 June 19, 2024 1:00am Chemotherapy-induced nausea and vomiting Nausea with vomiting, unspecified Adverse effect of antineoplastic and immunosuppressive drugs, initial encounter Completed/Discontinued Medications Medication Drug Class(es) Dates Sig (Normalized) Sig (Original) acetaminophen 500 mg oral tablet (8 sources) Start: 04-04-2024 End: 11-07-2024 take 2 tablets by mouth every six hours as needed for pain Acetaminophen 500 mg tablet Discontinued 1000 mg PO EVERY 6 HOURS as needed for pain April 04, 2024 1:00am November 07, 2024 8:04am acetaminophen (T YLENOL) 325 mg cap Take by mouth. Active cephalexin 500 mg oral capsule (5 sources) Cephalosporin Antibacterial Start: 11-22-2023 End: 01-30-2024 take 1 capsule by mouth three times daily Cephalexin 500 mg capsule Discontinued 500 mg PO THREE TIMES A DAY 21 0 November 22, 2023 12:00am January 30, 2024 1:26pm dutasteride 0.5 mg / tamsulosin hydrochloride 0.4 mg oral capsule (3 sources) alpha-Adrenergic Olga Lidia, 5-alpha Reductase Inhibitor Start: 12-26-2023 take 1 capsule by mouth once daily dutasteride-tamsul osin 0.5 mg-0.4 mg oral capsule Dose = 1 cap(s), Oral, qDay, # 30 cap(s), 1 Refill(s), Pharmacy: [id number], BPH associated with nocturia, 165, cm, 12/26/23 14:46:00 EDT, Height, kg, 12/26/23 14:46:00 EDT, Dosing Weight Start Date: 12/26/23 Status: Ordered tamsulosin hydrochloride 0.4 mg oral capsule (5 sources) alpha-Adrenergic Olga Lidia Start: 02-28-2024 End: 05-07-2024 take 1 capsule by mouth at bedtime Tamsulosin 0.4 mg capsule Discontinued 0.4 mg PO AT BEDTIME February 28, 2024 1:00am May 07, 2024 10:06am Problems Active Problems Problem Classification Problem Date Documented Date Episodic/Chronic Administrative/social admission (2 sources) Occupational exposure to other risk factors; Translations: [Adverse effects of work environment] Onset: 06-11-2024 06-12-2024 Episodic Cancer of bladder (20 sources) Malignant neoplasm, overlapping lesion of bladder; Translations: [Malignant neoplasm of overlapping sites of bladder] Onset: 06-11-2024 06-12-2024 Chronic Comment on above: 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 Borderline abnormal mediastinal lymphadenopathy with negative EBUS-TBNA.Finished Cisplatin and Radiation for bladder preservation on 07/19/2024.Comes for follow up.Counts and chemistry reviewed.CT 10/30/2024 reviewed, showed residual bladder mass.Urine for Cytology on 10/30/2024 is negative.No evidence of progressive disease. Cancer of bladder (2 sources) H/O: malignant neoplasm; Translations: [Personal history of malignant neoplasm of bladder] Onset: 06-11-2024 06-11-2024 Episodic Deficiency and other anemia (5 sources) Pancytopenia; Translations: [Other pancytopenia] 07-24-2024 Chronic Fever of unknown origin (5 sources) Fever; Translations: [Fever, unspecified] 07-24-2024 Episodic Genitourinary symptoms and ill-defined conditions (3 sources) Hematuria, unspecified; Translations: [Blood in urine] Onset: 12-26-2023 Episodic Hyperplasia of prostate (3 sources) Nocturia due to benign prostatic hypertrophy 12-26-2023 Chronic Lymphadenitis (20 sources) Mediastinal lymphadenopathy; Translations: [Localized enlarged lymph nodes] Onset: 05-17-2024 05-21-2024 Episodic Malignant neoplasm without specification of site (1 source) Malignant neoplastic disease; Translations: [Malignant (primary) neoplasm, unspecified] 12-13-2024 Chronic Comment on above: BLADDER Other screening for suspected conditions (not mental disorders or infectious disease) (11 sources) Patient encounter status; Translations: [Encounter for screening for other disorder] Onset: 05-17-2024 06-11-2024 Episodic Unclassified (3 sources) Patient encounter status 12-26-2023 Unclassified (2 sources) Malignant neoplasm of urinary bladder; Translations: [C67.4 - Malignant neoplasm of posterior wall of bladder] Unclassified (1 source) Abnormal positron emission tomography (PET) of lung Unclassified (1 source) C67.4 - Malignant neoplasm of posterior wall of bladder,R94.2 - Abnormal results of pulmonary function studies Past or Other Problems Problem Classification Problem Date Documented Date Episodic/Chronic E Codes: Adverse effects of medical drugs (1 source) Adverse effect of antineoplastic and immunosuppressive drugs, initial encounter; Translations: [Adverse effect of antineoplastic and immunosuppressive drugs, initial encounter] Onset: 06-19-2024 Episodic Nausea and vomiting (1 source) Nausea with vomiting, unspecified; Translations: [Nausea with vomiting, unspecified] Onset: 06-19-2024 Episodic Other aftercare (1 source) Other intermodal customer service (current) drug therapy; Translations: [Other intermodal customer service (current) drug therapy] Onset: 07-08-2024 Episodic Other aftercare (1 source) Encounter for adjustment and management of vascular access device; Translations: [Encounter for adjustment and management of vascular access device] Onset: 07-26-2024 Episodic Other circulatory disease (1 source) Other specified symptoms and signs involving the circulatory and respiratory systems; Translations: [Other specified symptoms and signs involving the circulatory and respiratory systems] Onset: 05-17-2024 Episodic Residual codes; unclassified (1 source) Illness, unspecified; Translations: [Illness, unspecified] Onset: 07-29-2024 Episodic Results Test Name Value Interpretation Reference Range Facility Discharge Instructionon 11-16 Discharge Instruction Normal [facility] Discharge Instruction Normal [facility] Operative Reporton Operative Report Normal [facility] NATERAon 11-07-2024 NATURA SEE SCANNED REPORT Normal [facility] Comment on above: Performed By: #### L 900.0098 ####[facility] [address] [place], [address] Oncology Visit Reporton 10-16 Oncology Visit Report Normal [facility] Radiation Oncology Visiton 0 11-07-2024 Radiation Oncology Visit Normal [facility] Absolute lymphocyte countOrd ered By: Donny Martinez on 10-30-2024 Lymphocytes Auto (Unsp spec) [#/Vol] 0.54 10*3/uL Low 0.83-4.51 [facility] Absolute neutrophil countOrd ered By: Donny Martinez on 10-30-2024 Neutrophils (Bld) [#/Vol] 2.0 10*3/uL 2.0-7.7 [facility] Anion gap in Serum or Plasma Ordered By: Donny Martinez on 10-30-2024 Anion gap [Moles/Vol] 11 mmol/L 5-15 [facility] Automated lymphocyte count a s percentage of total leukocytesOrdered By: Donny Martinez on 10-30-2024 Lymphocytes/100 WBC Auto (Unsp spec) 18.4 % Low 19-41 [facility] BUN/creatinine ratioOrdered By: Donny Martinez on 10-30-2024 Urea nitrogen/Creatinine [Mass ratio] 18.3 mg/mg 10-20 [facility] Basophil percentageOrdered B y: Donny Martinez on 10-30-2024 Basophils/100 WBC (Bld) 0.7 % 0-1 [facility] Bilirubin, totalOrdered By: Donny Annantonia on 10-30-2024 Bilirubin [Mass/Vol] 0.45 mg/dL 0.00-1.30 [facility] Blood manual differential co mment interpretation (narrative result)Ordered By: Donny Annantonia on 10-30-2024 Manual differential comment J Luis (Bld) [Interp] SCANNED [facility] Comment on above: LYMPHOPENIA NOTED CBC W/Diff, Automatedon 10-15 SMEAR COMMENT SCANNED Normal [facility] Comment on above: Result Comment: LYMP HOPENIA NOTED Performed By: #### L 350.1000, L100.0100, L500.4050, L504.2610 ####[facility] [address] [place], [place], [id number] CT Chest, Abd, Pel w/Contras ton 10-30-2024 CT Chest, Abd, Pel w/Contrast Normal [facility] Carbon dioxide, total [Moles /volume] in Central venous bloodOrdered By: Donny Annantonia on 10-30-2024 CO2 [Moles/Vol] 21.5 mmol/L 21.0-32.0 [facility] Chloride assayOrdered By: Zonia Martinez on 10-30-2024 Chloride [Moles/Vol] 106 mmol/L 98-108 [facility] Comprehensive Metabolic Prof ilon 10-30-2024 Albumin [Mass/Vol] 3.9 g/dL Normal 3.4-4.8 [facility] Comment on above: Performed By: #### L 350.1000, L100.0100, L500.4050, [id number] ####[facility] [address] [place], [address] Albumin/Globulin [Mass ratio] 1.5 {ratio} Normal 0.9-2.4 [facility] Comment on above: Performed By: #### L 350.1000, L100.0100, L500.4050, L504.2610 ####[facility] [address] [place], [address] ALK PHOS 85 U/L Normal 40-129 [facility] Comment on above: Performed By: #### L 350.1000, L100.0100, L500.4050, L504.2610 ####[facility] [address] [place], [address] ALT [Catalytic activity/Vol] 20 U/L Normal <=46 [facility] Comment on above: Performed By: #### L 350.1000, L100.0100, L500.4050, L504.2610 ####[facility] [address] [place], [address] AST [Catalytic activity/Vol] 22 U/L Normal <=37 [facility] Comment on above: Performed By: #### L 350.1000, L100.0100, L500.4050, L504.2610 ####[facility] [address] [place], [address] Bilirubin [Mass/Vol] 0.45 mg/dL Normal 0.00-1.30 [facility] Comment on above: Performed By: #### L 350.1000, L100.0100, L500.4050, L504.2610 ####[facility] [address] [place], [address] BUN/CRE 18.3 RATIO Normal 10-20 [facility] Comment on above: Performed By: #### L 350.1000, L100.0100, L500.4050, [id number] ####[facility] [address] [place], [address] Calcium [Mass/Vol] 9.8 mg/dL Normal 7.6-11.0 [facility] Comment on above: Performed By: #### L 350.1000, L100.0100, L500.4050, L504.2610 ####[facility] [address] [place], [address] Chloride [Moles/Vol] 106 mmol/L Normal 98-108 [facility] Comment on above: Performed By: #### L 350.1000, L100.0100, L500.4050, [id number] ####[facility] [address] [place], [address] CO2 [Moles/Vol] 21.5 mmol/L Normal 21.0-32.0 [facility] Comment on above: Performed By: #### L 350.1000, L100.0100, L500.4050, [id number] ####[facility] [address] [place], [address] Creatinine [Mass/Vol] 1.01 mg/dL Normal 0.70-1.20 [facility] Comment on above: Performed By: #### L 350.1000, L100.0100, L500.4050, [id number] ####[facility] [address] [place], [address] ECRCL 59.09 ml/min Normal 50-250 [facility] Comment on above: Performed By: #### L 350.1000, L100.0100, L500.4050, [id number] ####[facility] [address] [place], [address] GAP 11 Normal 5-15 [facility] Comment on above: Performed By: #### L 350.1000, L100.0100, L500.4050, [id number] ####[facility] [address] [place], [address] GFR/1.73 sq M.predicted among non-blacks MDRD (S/P/Bld) [Vol rate/Area] 81 mL/min/{1.73_m2} Normal >60 [facility] Comment on above: Result Comment: mL/m in/1.73m2 CKD-EPI Creatinine Equation (2020) Performed By: #### L 350.1000, L100.0100, L500.4050, [id number] ####[facility] [address] [place], [address] Globulin (S) [Mass/Vol] 2.5 g/dL Normal 2.2-4.2 [facility] Comment on above: Performed By: #### L 350.1000, L100.0100, L500.4050, [id number] ####[facility] [address] [place], [address] Glucose [Mass/Vol] 99 mg/dL Normal 70-99 [facility] Comment on above: Performed By: #### L 350.1000, L100.0100, L500.4050, [id number] ####[facility] [address] [place], [address] Potassium [Moles/Vol] 4.0 mmol/L Normal 3.3-5.1 [facility] Comment on above: Performed By: #### L 350.1000, L100.0100, L500.4050, [id number] ####[facility] [address] [place], [address] Sodium [Moles/Vol] 138 mmol/L Normal 133-145 [facility] Comment on above: Performed By: #### L 350.1000, L100.0100, L500.4050, [id number] ####[facility] [address] [place], [address] T PROT 6.4 g/dL Normal 5.9-8.4 [facility] Comment on above: Performed By: #### L 350.1000, L100.0100, L500.4050, L504.2610 ####[facility] [address] [place], [place], [id number] Urea nitrogen [Mass/Vol] 19 mg/dL Normal 4-19 [facility] Comment on above: Performed By: #### L 350.1000, L100.0100, L500.4050, L504.2610 ####[facility] [address] [place], [place], [id number] Cytology report of Body flui d Cyto stainOrdered By: Donny Martinez on 10-30-2024 Cytology report Cyto stain Doc (Body fld) SEE PATHOLOGY REPORT [facility] Comment on above: Specimen submitted t o Anatomical Pathology Department for testing. Cytology, Body Fluid / CSFon 10-30-2024 CYTOLOGY,BF/CSF SEE PATHOLOGY REPORT Normal [facility] Comment on above: Order Comment: Reaso n for Exam: URINEComments: URINEURINE Result Comment: Spec imen submitted to Anatomical Pathology Department fortesting. Performed By: #### L 350.1000, L100.0100, L500.4050, L504.2610 ####[facility] [address] [place], [address] Eosinophil percentageOrdered By: Donny Martinez on 10-30-2024 Eosinophils/100 WBC (Bld) 3.1 % 0-5 [facility] Erythrocyte distribution wid th ratioOrdered By: Donny Martinez on 10-30-2024 Erythrocyte distribution width (RBC) [Ratio] 12.2 % 11.6-14.6 [facility] Erythrocyte distribution wid th standard deviationOrdered By: Donny Martinez on 10-30-2024 Erythrocyte distribution width (RBC) [Ratio] 41.0 fl 35.1-43.9 [facility] Glomerular filtration rate ( GFR) estimation/1.73 sq m using serum, plasma, or whole bOrdered By: Donny Martinez on 10-30-2024 GFR/1.73 sq M.predicted among non-blacks MDRD (S/P/Bld) [Vol rate/Area] 81 mL/min/{1.73_m2} >60 [facility] Comment on above: mL/min/1.73m2 CKD-EP I Creatinine Equation (2020) Hematocrit Auto (Bld) [Volum e fraction]Ordered By: Donny Martinez on 10-30-2024 Hematocrit (Bld) [Volume fraction] 37.8 % Low 40-54 [facility] Hemoglobin measurementOrdere d By: Donny Martinez on 10-30-2024 Hemoglobin (Bld) [Mass/Vol] 13.6 g/dL 13.0-16.5 [facility] Immature granulocytes/100 WB C Auto (Bld)Ordered By: Donny Martinez on 10-30-2024 Immature granulocytes/100 WBC (Bld) 0.000 % 0.0-0.9 [facility] Comment on above: IG% - Immature Granu locytes (promyelocytes, myelocytes and metamyelocytes) > 1% indicates that a LEFT SHIFT is Present. LDHon 10-30-2024 LDH 191 U/L Normal 87-241 [facility] Comment on above: Order Comment: 1 Performed By: #### L 350.1000, L100.0100, L500.4050, L504.2610 ####[facility] [address] [place], [place], [id number] Laboratory - Chemistry and C hemistry - challengeOrdered By: Donny Martinez on 10-30-2024 AST [Catalytic activity/Vol] 22 U/L <38 [facility] Lactate dehydrogenase (LDH) measurementOrdered By: Donny Martinez on 10-30-2024 LDH [Catalytic activity/Vol] 191 U/L 87-241 [facility] MCV (mean corpuscular volume ) determinationOrdered By: Donny Martinez on 10-30-2024 MCV (RBC) [Entitic vol] 91.3 fL 80-94 [facility] Mean corpuscular hemoglobin (MCH) determinationOrdered By: Donny Martinez on 10-30-2024 MCH (RBC) [Entitic mass] 32.9 pg High 27.0-32.0 [facility] Mean corpuscular hemoglobin concentration (MCHC) determinationOrdered By: Donny Martinez on 10-30-2024 MCHC (RBC) [Mass/Vol] 36.0 g/dL 32-36 [facility] Mean platelet volume determi nationOrdered By: Donny Martinez on 10-30-2024 Platelet mean volume (Bld) [Entitic vol] 8.9 fL 6.2-12.0 [facility] Monocyte percentageOrdered B y: Donny Martinez on 10-30-2024 Monocytes/100 WBC (Bld) 11.6 % High 0-10 [facility] Neutrophil percentageOrdered By: Donny Martinez on 10-30-2024 Neutrophils/100 WBC (Bld) 66.2 % 47-70 [facility] Nucleated red blood cell per centageOrdered By: Donny Martinez on 10-30-2024 Nucleated RBC/100 WBC (Bld) [Ratio] 0 % 0-5 [facility] Platelet countOrdered By: Zonia Martinez on 10-30-2024 Platelets (Bld) [#/Vol] 157 10*3/uL 150-450 [facility] Potassium measurement (mass/ volume)Ordered By: Donny Martinez on 10-30-2024 Potassium (Unsp spec) [Mass/Vol] 4.0 mmol/L 3.3-5.1 [facility] RBC Auto (Bld) [#/Vol]Ordere d By: Donny Martinez on 10-30-2024 RBC (Bld) [#/Vol] 4.14 10*6/uL Low 4.6-6.2 [facility] Serum creatinine measurement (mass/volume)Ordered By: Donny Martinez on 10-30-2024 Creatinine [Mass/Vol] 1.01 mg/dL 0.70-1.20 [facility] Serum globulin measurementOr dered By: Donny Martinez on 10-30-2024 Globulin (S) [Mass/Vol] 2.5 g/dL 2.2-4.2 [facility] Serum glucose measurement (m ass/volume)Ordered By: Donny Martinez on 10-30-2024 Glucose [Mass/Vol] 99 mg/dL 70-99 [facility] Serum or plasma alanine cehung otransferase (ALT) measurementOrdered By: Donny Martinez on 10-30-2024 ALT [Catalytic activity/Vol] 20 U/L <47 [facility] Serum or plasma albumin nicolasa urement (mass/volume)Ordered By: Donny Martinez on 10-30-2024 Albumin [Mass/Vol] 3.9 g/dL 3.4-4.8 [facility] Serum or plasma albumin/glob ulin mass ratioOrdered By: Donny Martinez on 10-30-2024 Albumin/Globulin [Mass ratio] 1.5 {ratio} 0.9-2.4 [facility] Serum or plasma alkaline daisy sphatase measurementOrdered By: Donny Martniez on 10-30-2024 ALP [Catalytic activity/Vol] 85 U/L 40-129 [facility] Serum or plasma calcium nicolasa urement (mass/volume)Ordered By: Donny Martinez on 10-30-2024 Calcium [Mass/Vol] 9.8 mg/dL 7.6-11.0 [facility] Serum or plasma urea nitroge n measurement (mass/volume)Ordered By: Donny Martinez on 10-30-2024 Urea nitrogen [Mass/Vol] 19 mg/dL 4-19 [facility] Sodium levelOrdered By: Rudy Martinez on 10-30-2024 Sodium [Moles/Vol] 138 mmol/L 133-145 [facility] Special Stain Group IIon Special Stain Group II Normal [facility] Comment on above: Performed By: #### P SSII ####[facility] [address] [place], [address] Total proteinOrdered By: Mohsen Martinez on 10-30-2024 Protein [Mass/Vol] 6.4 g/dL 5.9-8.4 [facility] White blood cell (WBC) count Ordered By: Donny Martinez on 10-30-2024 WBC (Bld) [#/Vol] 2.9 10*3/uL Low 4.4-11.0 [facility] CBC W/Diff, Automatedon 07-18 PATH REV Reviewed Normal [facility] Comment on above: Result Comment: SEE REPORT IN PATIENT'S EMR AMENDED REPORT 08/14/24 1331 PATH REV previously reported as: August foll Performed By: #### L 500.4050, L300.4310, L300.3900, L100.0100, M200.1000, L503.6005 ####[facility] [address] [place], [address] Bilirubin Test strip Ql (U)O rdered By: Donny Martinez on 08-12-2024 Bilirubin Ql (U) Negative Negative [facility] CBC W[facility]Diff, [facility]is[facility] Ql (Bld) 2+ Normal [facility] Comment on above: Performed By: #### L 350.1000, L501.2300, L504.2610, L501.5200, L100.0100, L400.0001, L500.4050 ####[facility] [address] [place], [address] SMEAR COMMENT SCANNED Normal [facility] Comment on above: Performed By: #### L 350.1000, L501.2300, L504.2610, L501.5200, L100.0100, L400.0001, L500.4050 ####[facility] [address] [place], [address] Comprehensive Metabolic Prof maon 08-12-2024 Albumin [Mass/Vol] 3.5 g/dL Normal 3.4-4.8 [facility] Comment on above: Performed By: #### L 350.1000, L501.2300, L504.2610, L501.5200, L100.0100, L400.0001, L500.4050 ####[facility] [address] [place], [address] Albumin/Globulin [Mass ratio] 1.5 {ratio} Normal 0.9-2.4 [facility] Comment on above: Performed By: #### L 350.1000, L501.2300, L504.2610, L501.5200, L100.0100, L400.0001, L500.4050 ####[facility] [address] [place], [address] ALK PHOS 80 U/L Normal 40-129 [facility] Comment on above: Performed By: #### L 350.1000, L501.2300, L504.2610, L501.5200, L100.0100, L400.0001, L500.4050 ####[facility] [address] [place], [address] ALT [Catalytic activity/Vol] 18 U/L Normal <=46 [facility] Comment on above: Performed By: #### L 350.1000, L501.2300, L504.2610, L501.5200, L100.0100, L400.0001, L500.4050 ####[facility] [address] [place], [address] AST [Catalytic activity/Vol] 20 U/L Normal <=37 [facility] Comment on above: Performed By: #### L 350.1000, L501.2300, L504.2610, L501.5200, L100.0100, L400.0001, L500.4050 ####[facility] [address] [place], [address] Bilirubin [Mass/Vol] 0.22 mg/dL Normal 0.00-1.30 [facility] Comment on above: Performed By: #### L 350.1000, L501.2300, L504.2610, L501.5200, L100.0100, L400.0001, L500.4050 ####[facility] [address] [place], [address] BUN/CRE 16.6 RATIO Normal 10-20 [facility] Comment on above: Performed By: #### L 350.1000, L501.2300, L504.2610, L501.5200, L100.0100, L400.0001, L500.4050 ####[facility] [address] [place], [address] Calcium [Mass/Vol] 9.5 mg/dL Normal 7.6-11.0 [facility] Comment on above: Performed By: #### L 350.1000, L501.2300, L504.2610, L501.5200, L100.0100, L400.0001, L500.4050 ####[facility] [address] [place], [address] Chloride [Moles/Vol] 106 mmol/L Normal 98-108 [facility] Comment on above: Performed By: #### L 350.1000, L501.2300, L504.2610, L501.5200, L100.0100, L400.0001, L500.4050 ####[facility] [address] [place], [address] CO2 [Moles/Vol] 22.9 mmol/L Normal 21.0-32.0 [facility] Comment on above: Performed By: #### L 350.1000, L501.2300, L504.2610, L501.5200, L100.0100, L400.0001, L500.4050 ####[facility] [address] [place], [address] Creatinine [Mass/Vol] 1.00 mg/dL Normal 0.70-1.20 [facility] Comment on above: Performed By: #### L 350.1000, L501.2300, L504.2610, L501.5200, L100.0100, L400.0001, L500.4050 ####[facility] [address] [place], [address] ECRCL 59.69 ml/min Normal 50-250 [facility] Comment on above: Performed By: #### L 350.1000, L501.2300, L504.2610, L501.5200, L100.0100, L400.0001, L500.4050 ####[facility] [address] [place], [address] GAP 11 Normal 5-15 [facility] Comment on above: Performed By: #### L 350.1000, L501.2300, L504.2610, L501.5200, L100.0100, L400.0001, L500.4050 ####[facility] [address] [place], [address] GFR/1.73 sq M.predicted among non-blacks MDRD (S/P/Bld) [Vol rate/Area] 81 mL/min/{1.73_m2} Normal >60 [facility] Comment on above: Result Comment: mL/m in/1.73m2 CKD-EPI Creatinine Equation (2020) Performed By: #### L 350.1000, L501.2300, L504.2610, L501.5200, L100.0100, L400.0001, L500.4050 ####[facility] [address] [place], [address] Globulin (S) [Mass/Vol] 2.4 g/dL Normal 2.2-4.2 [facility] Comment on above: Performed By: #### L 350.1000, L501.2300, L504.2610, L501.5200, L100.0100, L400.0001, L500.4050 ####[facility] [address] [place], [address] Glucose [Mass/Vol] 119 mg/dL High 70-99 [facility] Comment on above: Performed By: #### L 350.1000, L501.2300, L504.2610, L501.5200, L100.0100, L400.0001, L500.4050 ####[facility] [address] [place], [address] Potassium [Moles/Vol] 4.1 mmol/L Normal 3.3-5.1 [facility] Comment on above: Performed By: #### L 350.1000, L501.2300, L504.2610, L501.5200, L100.0100, L400.0001, L500.4050 ####[facility] [address] [place], [address] Sodium [Moles/Vol] 139 mmol/L Normal 133-145 [facility] Comment on above: Performed By: #### L 350.1000, L501.2300, L504.2610, L501.5200, L100.0100, L400.0001, L500.4050 ####[facility] [address] [place], [place], [id number] T PROT 5.9 g/dL Normal 5.9-8.4 [facility] Comment on above: Performed By: #### L 350.1000, L501.2300, L504.2610, L501.5200, L100.0100, L400.0001, L500.4050 ####[facility] [address] [place], [address] Urea nitrogen [Mass/Vol] 17 mg/dL Normal 4-19 [facility] Comment on above: Performed By: #### L 350.1000, L501.2300, L504.2610, L501.5200, L100.0100, L400.0001, L500.4050 ####[facility] [address] [place], [place], [address] Cytology, Body Fluid / CSFon 08-12-2024 CYTOLOGY,BF/CSF SEE PATHOLOGY REPORT Normal [facility] Comment on above: Order Comment: Reaso n for Exam: URINEComments: URINEURINE Result Comment: Spec imen submitted to Anatomical Pathology Department fortesting. Performed By: #### L 350.1000, L501.2300, L504.2610, L501.5200, L100.0100, L400.0001, L500.4050 ####[facility] [address] [place], [place], [address] Ketones Test strip Ql (U)Ord ered By: Donny Martinez on 08-12-2024 Ketones Ql (U) Negative Negative [facility] LDHon 08-12-2024 LDH 212 U/L Normal 87-241 [facility] Comment on above: Order Comment: 1 Performed By: #### L 350.1000, L501.2300, L504.2610, L501.5200, L100.0100, L400.0001, L500.4050 ####[facility] [address] [place], [place], [phone] Laboratory - Hematology and Cell countsOrdered By: Donny Martinez on 08-12-2024 Anisocytosis Ql (Bld) 2+ [facility] Magnesiumon 08-12-2024 Magnesium [Mass/Vol] 2.1 mg/dL Normal 1.5-2.2 [facility] Comment on above: Performed By: #### L 350.1000, L501.2300, L504.2610, L501.5200, L100.0100, L400.0001, L500.4050 ####[facility] [address] [place], [place], [address] Magnesium measurement (mass/ volume)Ordered By: Donny Martinez on 08-12-2024 Magnesium (Unsp spec) [Mass/Vol] 2.1 mg/dL 1.5-2.2 [facility] Microscopic analysis of urin e for red blood cells (RBC)Ordered By: Donny Martinez on 08-12-2024 Microscopic analysis of urine for red blood cells (RBC) 0-5 SEEN /hpf 0-5 [facility] Mucus LM Ql (Urine sed)Order ed By: Donny Martinez on 08-12-2024 Mucus Ql (Urine sed) RARE /hpf [facility] Nitrite Test strip Ql (U)Ord ered By: Donny Martinez on 08-12-2024 Nitrite Ql (U) Negative Negative [facility] Oncology Visit Reporton 07-17 Oncology Visit Report Normal [facility] Phosphoruson 08-12-2024 Phosphate [Mass/Vol] 2.6 mg/dL Low 2.7-4.5 [facility] Comment on above: Performed By: #### L 350.1000, L501.2300, L504.2610, L501.5200, L100.0100, L400.0001, L500.4050 ####[facility] [address] [place], [address] Protein Test strip Ql (U)Ord ered By: Donny Martinez on 08-12-2024 Protein Ql (U) 30 mg/dl High Negative [facility] Radiation Oncology Visiton 0 08-12-2024 Radiation Oncology Visit Normal [facility] Special Stain Group IIon Special Stain Group II Normal [facility] Comment on above: Performed By: #### P SSII ####[facility] [address] [place], [place], [id number] Squamous epithelial cells de tection in urine sediment by light microscopyOrdered By: Donny Martinez on 08-12-2024 Epithelial cells.squamous LM Ql (Urine sed) 0-5 SEEN /hpf 0-5 [facility] Urinalysis, Completeon 08-12 BACTERIA RARE Normal None Seen [facility] Comment on above: Order Comment: COLLE CTOR TO SPECIFY Performed By: #### L 350.1000, L501.2300, L504.2610, L501.5200, L100.0100, L400.0001, L500.4050 ####[facility] [address] [place], [address] EPI,SQUAMOUS 0-5 SEEN Normal 0-5 [facility] Comment on above: Order Comment: COLLE CTOR TO SPECIFY Performed By: #### L 350.1000, L501.2300, L504.2610, L501.5200, L100.0100, L400.0001, L500.4050 ####[facility] [address] [place], [address] Mucus Ql (Urine sed) RARE Normal [facility] Comment on above: Order Comment: RENY CTOR TO SPECIFY Performed By: #### L 350.1000, L501.2300, L504.2610, L501.5200, L100.0100, L400.0001, L500.4050 ####[facility] [address] [place], [place], [phone] RBC 0-5 SEEN Normal 0-5 [facility] Comment on above: Order Comment: RENY CTOR TO SPECIFY Performed By: #### L 350.1000, L501.2300, L504.2610, L501.5200, L100.0100, L400.0001, L500.4050 ####[facility] [address] [place], [place], [phone] WBC 10-25 SEEN Normal 0-5 [facility] Comment on above: Order Comment: RENY CTOR TO SPECIFY Performed By: #### L 350.1000, L501.2300, L504.2610, L501.5200, L100.0100, L400.0001, L500.4050 ####[facility] [address] [place], [place], [phone] Urine clarityOrdered By: Mohsen Martinez on 08-12-2024 Clarity (U) Sl. Cloudy Clear [facility] Urine color determinationOrd ered By: Donny Martinez on 08-12-2024 Color (U) Yellow Yellow [facility] Urine glucose detectionOrder ed By: Donny Martinez on 08-12-2024 Glucose Ql (U) Normal mg/dl Normal [facility] Urine leukocyte esterase det ection by dipstickOrdered By: Donny Martinez on 08-12-2024 Leukocyte esterase Test strip Ql (U) 100 /ul High Negative [facility] Urine pHOrdered By: Donny brantley on 08-12-2024 pH (U) 6.0 [pH] 5.0 - 8.0 [facility] Urine sediment bacteria coun t by microscopy (number/high power field)Ordered By: Donny Martinez on 08-12-2024 Bacteria LM.HPF (Urine sed) [#/Area] RARE /hpf None Seen [facility] Urine specific gravity measu rementOrdered By: Donny Martinez on 08-12-2024 Specific gravity (U) [Rel density] 1.015 1.002-1.030 [facility] Urine urobilinogen measureme ntOrdered By: Donny Martinez on 08-12-2024 Urobilinogen Ql (U) Normal mg/dl Normal [facility] White blood cell countOrdere d By: Donny Martinez on 08-12-2024 White blood cell count 10-25 SEEN /hpf 0-5 [facility] Culture, Blood (WB)on 2024 CUB Blood cultures x2, from two different sites No growth in 5 days. Normal [facility] Comment on above: Performed By: #### L 500.4050, L300.4310, L300.3900, L100.0100, M200.1000, L503.6005 ####[facility] [address] [place], [place], [phone] Urine Cultureon 07-26-2024 URC Culture exhibits no growth. Normal [facility] Comment on above: Performed By: #### L 400.0001, M100.678, M100.2200 ####[facility] [address] [place], [place], [phone] 12 Lead EKGon 07-24-2024 12 Lead EKG Normal [facility] Absolute lymphocyte countOrd ered By: Jayson Bartlett on 07-24-2024 Lymphocytes Auto (Unsp spec) [#/Vol] 0.16 10*3/uL Low 0.83-4.51 [facility] Absolute neutrophil countOrd ered By: Jayson Bartlett on 07-24-2024 Neutrophils (Bld) [#/Vol] 0.7 10*3/uL Low 2.0-7.7 [facility] Activated partial thrombopla stin time (aPTT) in platelet poor plasma by coagulation aOrdered By: Jayson Bartlett on 07-24-2024 aPTT Coag (PPP) [Time] 25.7 s 24.1-36.2 [facility] Anion gap in Serum or Plasma Ordered By: Jayson Bartlett on 07-24-2024 Anion gap [Moles/Vol] 12 mmol/L 5-15 [facility] Automated lymphocyte count a s percentage of total leukocytesOrdered By: Jayson Bartlett on 07-24-2024 Lymphocytes/100 WBC Auto (Unsp spec) 13.1 % Low 19-41 [facility] BUN/creatinine ratioOrdered By: Jayson Bartlett on 07-24-2024 Urea nitrogen/Creatinine [Mass ratio] 22.9 mg/mg High 10-20 [facility] Basophil percentageOrdered B y: Jayson Bartlett on 07-24-2024 Basophils/100 WBC (Bld) 0.8 % 0-1 [facility] Bilirubin Test strip Ql (U)O rdered By: Jayson Bartlett on 07-24-2024 Bilirubin Ql (U) Negative Negative [facility] Bilirubin, totalOrdered By: Jayson Bartlett on 07-24-2024 Bilirubin [Mass/Vol] 0.40 mg/dL 0.00-1.30 [facility] Blood cultureOrdered By: Marianne Bartlett on 07-24-2024 Bacteria identified Cx Nom (Bld) No growth in 5 days. [facility] Bacteria identified Cx Nom (Bld) No growth in 5 days. [facility] Carbon dioxide, total [Moles /volume] in Central venous bloodOrdered By: Jayson Bartlett on 07-24-2024 CO2 [Moles/Vol] 20.2 mmol/L Low 21.0-32.0 [facility] Chest PA and Lateralon 07-24 Chest PA and Lateral Normal [facility] Chloride assayOrdered By: Miguel Bartlett on 07-24-2024 Chloride [Moles/Vol] 100 mmol/L 98-108 [facility] Comprehensive Metabolic Prof ilon 07-24-2024 Albumin [Mass/Vol] 3.1 g/dL Low 3.4-4.8 [facility] Comment on above: Performed By: #### L 500.4050, L300.4310, L300.3900, L100.0100, M200.1000, L503.6005 ####[facility] [address] [place], [address] Albumin/Globulin [Mass ratio] 1.3 {ratio} Normal 0.9-2.4 [facility] Comment on above: Performed By: #### L 500.4050, L300.4310, L300.3900, L100.0100, M200.1000, L503.6005 ####[facility] [address] [place], [address] ALK PHOS 61 U/L Normal 40-129 [facility] Comment on above: Performed By: #### L 500.4050, L300.4310, L300.3900, L100.0100, M200.1000, L503.6005 ####[facility] [address] [place], [address] ALT [Catalytic activity/Vol] 11 U/L Normal <=46 [facility] Comment on above: Performed By: #### L 500.4050, L300.4310, L300.3900, L100.0100, M200.1000, L503.6005 ####[facility] [address] [place], [address] AST [Catalytic activity/Vol] 12 U/L Normal <=37 [facility] Comment on above: Performed By: #### L 500.4050, L300.4310, L300.3900, L100.0100, M200.1000, L503.6005 ####[facility] [address] [place], [address] Bilirubin [Mass/Vol] 0.40 mg/dL Normal 0.00-1.30 [facility] Comment on above: Performed By: #### L 500.4050, L300.4310, L300.3900, L100.0100, M200.1000, L503.6005 ####[facility] [address] [place], [address] BUN/CRE 22.9 RATIO High 10-20 [facility] Comment on above: Performed By: #### L 500.4050, L300.4310, L300.3900, L100.0100, M200.1000, L503.6005 ####[facility] [address] [place], [address] Calcium [Mass/Vol] 8.7 mg/dL Normal 7.6-11.0 [facility] Comment on above: Performed By: #### L 500.4050, L300.4310, L300.3900, L100.0100, M200.1000, L503.6005 ####[facility] [address] [place], [address] Chloride [Moles/Vol] 100 mmol/L Normal 98-108 [facility] Comment on above: Performed By: #### L 500.4050, L300.4310, L300.3900, L100.0100, M200.1000, L503.6005 ####[facility] [address] [place], [address] CO2 [Moles/Vol] 20.2 mmol/L Low 21.0-32.0 [facility] Comment on above: Performed By: #### L 500.4050, L300.4310, L300.3900, L100.0100, M200.1000, L503.6005 ####[facility] [address] [place], [address] Creatinine [Mass/Vol] 0.84 mg/dL Normal 0.70-1.20 [facility] Comment on above: Performed By: #### L 500.4050, L300.4310, L300.3900, L100.0100, M200.1000, L503.6005 ####[facility] [address] [place], [address] ECRCL 72.10 ml/min Normal 50-250 [facility] Comment on above: Performed By: #### L 500.4050, L300.4310, L300.3900, L100.0100, M200.1000, L503.6005 ####[facility] [address] [place], [address] GAP 12 Normal 5-15 [facility] Comment on above: Performed By: #### L 500.4050, L300.4310, L300.3900, L100.0100, M200.1000, L503.6005 ####[facility] [address] [place], [address] GFR/1.73 sq M.predicted among non-blacks MDRD (S/P/Bld) [Vol rate/Area] 94 mL/min/{1.73_m2} Normal >60 [facility] Comment on above: Result Comment: mL/m in/1.73m2 CKD-EPI Creatinine Equation (2020) Performed By: #### L 500.4050, L300.4310, L300.3900, L100.0100, M200.1000, L503.6005 ####[facility] [address] [place], [address] Globulin (S) [Mass/Vol] 2.3 g/dL Normal 2.2-4.2 [facility] Comment on above: Performed By: #### L 500.4050, L300.4310, L300.3900, L100.0100, M200.1000, L503.6005 ####[facility] [address] [place], [address] Glucose [Mass/Vol] 98 mg/dL Normal 70-99 [facility] Comment on above: Performed By: #### L 500.4050, L300.4310, L300.3900, L100.0100, M200.1000, L503.6005 ####[facility] [address] [place], [address] Potassium [Moles/Vol] 3.5 mmol/L Normal 3.3-5.1 [facility] Comment on above: Performed By: #### L 500.4050, L300.4310, L300.3900, L100.0100, M200.1000, L503.6005 ####[facility] [address] [place], [address] Sodium [Moles/Vol] 132 mmol/L Low 133-145 [facility] Comment on above: Performed By: #### L 500.4050, L300.4310, L300.3900, L100.0100, M200.1000, L503.6005 ####[facility] [address] [place], [place], [id number] T PROT 5.4 g/dL Low 5.9-8.4 [facility] Comment on above: Performed By: #### L 500.4050, L300.4310, L300.3900, L100.0100, M200.1000, L503.6005 ####[facility] [address] [place], [place], [address] Urea nitrogen [Mass/Vol] 19 mg/dL Normal 4-19 [facility] Comment on above: Performed By: #### L 500.4050, L300.4310, L300.3900, L100.0100, M200.1000, L503.6005 ####[facility] [address] [place], [address] Emergency Department Summary on 07-24-2024 Emergency Department Summary Normal [facility] Eosinophil percentageOrdered By: Jayson Bartlett on 07-24-2024 Eosinophils/100 WBC (Bld) 0.8 % 0-5 [facility] Epithelial cells.squamous LM Ql (Urine sed)Ordered By: Jayson Bartlett on 07-24-2024 Epithelial cells.squamous LM.HPF (Urine sed) [#/Area] 0 /[HPF] 0-5 [facility] Erythrocyte distribution wid th (RBC) [Ratio]Ordered By: Jayson Bartlett on 07-24-2024 Erythrocyte distribution width (RBC) [Entitic vol] 39.5 fL 35.1-43.9 [facility] Erythrocyte distribution wid th ratioOrdered By: Jayson Bartlett on 07-24-2024 Erythrocyte distribution width (RBC) [Ratio] 14.8 % High 11.6-14.6 [facility] Erythrocyte distribution wid th standard deviationOrdered By: Jayson Bartlett on 07-24-2024 Erythrocyte distribution width (RBC) [Ratio] 39.5 fl 35.1-43.9 [facility] Estimation of creatinine juan aranceOrdered By: Jayson Bartlett on 07-24-2024 Estimated Creatinine Clearance Calc 72.10 ml/min 50-250 [facility] GFR/1.73 sq M.predicted davida g non-blacks MDRD (S/P/Bld) [Vol rate/Area]Ordered By: Jayson Bartlett on 07-24-2024 Estimated GFR (MDRD) Non-Af Amer 94 >60 [facility] Comment on above: mL/min/1.73m2 CKD-EP I Creatinine Equation (2020) Glomerular filtration rate ( GFR) estimation/1.73 sq m using serum, plasma, or whole bOrdered By: Jayson Bartlett on 07-24-2024 GFR/1.73 sq M.predicted among non-blacks MDRD (S/P/Bld) [Vol rate/Area] 94 mL/min/{1.73_m2} >60 [facility] Comment on above: mL/min/1.73m2 CKD-EP I Creatinine Equation (2020) Glucose Ql (U)Ordered By: Miguel Bartlett on 07-24-2024 Urine Glucose (UA) Normal mg/dl Normal [facility] Hematocrit Auto (Bld) [Volum e fraction]Ordered By: Jayson Bartlett on 07-24-2024 Hematocrit (Bld) [Volume fraction] 26.4 % Low 40-54 [facility] Hemoglobin measurementOrdere d By: Jayson Bartlett on 07-24-2024 Hemoglobin (Bld) [Mass/Vol] 9.4 g/dL Low 13.0-16.5 [facility] Immature granulocytes/100 WB C Auto (Bld)Ordered By: Jayson Bartlett on 07-24-2024 Immature granulocytes/100 WBC (Bld) 0.000 % 0.0-0.9 [facility] Comment on above: IG% - Immature Granu locytes (promyelocytes, myelocytes and metamyelocytes) > 1% indicates that a LEFT SHIFT is Present. Influenza virus A and B and SARS-CoV-2 (COVID-19) and Respiratory syncytial virus RNAOrdered By: Jayson Bartlett on 07-24-2024 SARS-CoV-2 (COVID-19) RNA ALICIA+probe Ql (Unsp spec) [facility] International normalized rat io (INR) calculationOrdered By: Jayson Bartlett on 07-24-2024 INR Coag (Bld) [Relative time] 1.1 {INR} [facility] Ketones Test strip Ql (U)Ord ered By: Jayson Bartlett on 07-24-2024 Ketones Ql (U) 15 mg/dl High Negative [facility] Laboratory - Chemistry and C hemistry - challengeOrdered By: Jayson Bartlett on 07-24-2024 AST [Catalytic activity/Vol] 12 U/L <38 [facility] Lactic Acidon 07-24-2024 Lactate [Moles/Vol] mmol/L Normal 0.0-2.0 [facility] Comment on above: Order Comment: Y Performed By: #### L 500.4050, L300.4310, L300.3900, L100.0100, M200.1000, L503.6005 ####[facility] [address] [place], [address] Lactic acid measurementOrder ed By: Jayson Bartlett on 07-24-2024 Lactate [Moles/Vol] mmol/L 0.0-2.0 [facility] Lymphocytes Auto (Unsp spec) [#/Vol]Ordered By: Jayson Bartlett on 07-24-2024 Lymphocytes (Bld) [#/Vol] 0.16 10*3/uL Low 0.83-4.51 [facility] Lymphocytes/100 WBC Auto (Un sp spec)Ordered By: Jayson Bartlett on 07-24-2024 Lymphocytes/100 WBC (Bld) 13.1 % Low 19-41 [facility] M100.678on 07-24-2024 M100.678 Pending SARS-CoV-2 (COVID 19) Negative INFLUENZA A Negative INFLUENZA B Negative RSV PCR Negative Normal [facility] Comment on above: Performed By: #### L 400.0001, M100.678, M100.2200 ####[facility] [address] [place], [address] MCV (mean corpuscular volume ) determinationOrdered By: Jayson Bartlett on 07-24-2024 MCV (RBC) [Entitic vol] 81.2 fL 80-94 [facility] Macrocytes Ql (Bld)Ordered B y: Jayson Bartlett on 07-24-2024 Macrocytosis 1+ [facility] Macrocytes detectionOrdered By: Jayson Bartlett on 07-24-2024 Macrocytes Ql (Bld) 1+ [facility] Mean corpuscular hemoglobin (MCH) determinationOrdered By: Jayson Bartlett on 07-24-2024 MCH (RBC) [Entitic mass] 28.9 pg 27.0-32.0 [facility] Mean corpuscular hemoglobin concentration (MCHC) determinationOrdered By: Jayson Bartlett on 07-24-2024 MCHC (RBC) [Mass/Vol] 35.6 g/dL 32-36 [facility] Mean platelet volume determi nationOrdered By: Jayson Bartlett on 07-24-2024 Platelet mean volume (Bld) [Entitic vol] 9.7 fL 6.2-12.0 [facility] Microscopic analysis of urin e for red blood cells (RBC)Ordered By: Jayson Bartlett on 07-24-2024 Microscopic analysis of urine for red blood cells (RBC) 0 SEEN /hpf 0-5 [facility] Urine RBC 0 SEEN /hpf 0-5 [facility] Monocyte percentageOrdered B y: Jayson Bartlett on 07-24-2024 Monocytes/100 WBC (Bld) 25.4 % High 0-10 [facility] Mucus LM Ql (Urine sed)Order ed By: Jayson Bartlett on 07-24-2024 Mucus Ql (Urine sed) 1+ /hpf [facility] Neutrophil percentageOrdered By: Jayson Bartlett on 07-24-2024 Neutrophils/100 WBC (Bld) 59.9 % 47-70 [facility] Nitrite Test strip Ql (U)Ord ered By: Jayson Bartlett on 07-24-2024 Nitrite Ql (U) Negative Negative [facility] Nucleated red blood cell per centageOrdered By: Jayson Bartlett on 07-24-2024 Nucleated RBC/100 WBC (Bld) [Ratio] 0 % 0-5 [facility] Ovalocyte detectionOrdered B y: Jayson Bartlett on 07-24-2024 Ovalocytes LM Ql (Bld) 1+ [facility] Ovalocytes LM Ql (Bld)Ordere d By: Jayson Bartlett on 07-24-2024 Ovalocytes 1+ [facility] Partial Thromboplast Timeon 07-24-2024 aPTT Coag (Bld) [Time] 25.7 s Normal 24.1-36.2 [facility] Comment on above: Performed By: #### L 500.4050, L300.4310, L300.3900, L100.0100, M200.1000, L503.6005 ####[facility] [address] [place], [address] Pathologist review J Luis (Unsp spec) [Interp]Ordered By: Jayson Bartlett on 07-24-2024 Differential Pathologist's Review May [facility] Platelet countOrdered By: Miguel Bartlett on 07-24-2024 Platelets (Bld) [#/Vol] 94 10*3/uL Low 150-450 [facility] Platelet estimateOrdered By: Jayson Bartlett on 07-24-2024 Platelets LM Ql (Bld) MOD DEC ADEQ [facility] Platelets LM Ql (Bld)Ordered By: Jayson Bartlett on 07-24-2024 Platelet Estimate MOD DEC ADEQ [facility] Potassium (Unsp spec) [Mass/ Vol]Ordered By: Jayson Bartlett on 07-24-2024 Potassium [Moles/Vol] 3.5 mmol/L 3.3-5.1 [facility] Potassium measurement (mass/ volume)Ordered By: Jayson Bartlett on 07-24-2024 Potassium (Unsp spec) [Mass/Vol] 3.5 mmol/L 3.3-5.1 [facility] Protein Test strip Ql (U)Ord ered By: Jayson Bartlett on 07-24-2024 Protein Ql (U) 30 mg/dl High Negative [facility] Prothrombin Time w/INRon INR Coag (PPP) [Relative time] 1.1 {INR} Normal [facility] Comment on above: Performed By: #### L 500.4050, L300.4310, L300.3900, L100.0100, M200.1000, L503.6005 ####[facility] [address] [place], [address] PT Coag (PPP) [Time] 14.2 s Normal 11.7-14.9 [facility] Comment on above: Performed By: #### L 500.4050, L300.4310, L300.3900, L100.0100, M200.1000, L503.6005 ####[facility] [address] [place], [address] Prothrombin timeOrdered By: Jayson Bartlett on 07-24-2024 PT Coag (PPP) [Time] 14.2 s 11.7-14.9 [facility] RBC Auto (Bld) [#/Vol]Ordere d By: Jayson Bartlett on 07-24-2024 RBC (Bld) [#/Vol] 3.25 10*6/uL Low 4.6-6.2 [facility] Review by pathologistOrdered By: Jayson Bartlett on 07-24-2024 Pathologist review J Luis (Unsp spec) [Interp] Reviewed [facility] Comment on above: Previous reported re sult: Silva ace Edited by: MCKAY on 08/14/24:1331SEE REPORT IN PATIENT'S EMR AMENDED REPORT 08/14/24 1331 PATH REV previously reported as: Silva ace Serum creatinine measurement (mass/volume)Ordered By: Jayson Bartlett on 07-24-2024 Creatinine [Mass/Vol] 0.84 mg/dL 0.70-1.20 [facility] Serum globulin measurementOr dered By: Jayson Bartlett on 07-24-2024 Globulin (S) [Mass/Vol] 2.3 g/dL 2.2-4.2 [facility] Serum glucose measurement (m ass/volume)Ordered By: Jayson Bartlett on 07-24-2024 Glucose [Mass/Vol] 98 mg/dL 70-99 [facility] Serum or plasma alanine cheung otransferase (ALT) measurementOrdered By: Jayson Bartlett on 07-24-2024 ALT [Catalytic activity/Vol] 11 U/L <47 [facility] Serum or plasma albumin nicolasa urement (mass/volume)Ordered By: Jayson Bartlett on 07-24-2024 Albumin [Mass/Vol] 3.1 g/dL Low 3.4-4.8 [facility] Serum or plasma albumin/glob ulin mass ratioOrdered By: Jayson Bartlett on 07-24-2024 Albumin/Globulin [Mass ratio] 1.3 {ratio} 0.9-2.4 [facility] Serum or plasma alkaline daisy sphatase measurementOrdered By: Jayson Bartlett 07-24-2024 ALP [Catalytic activity/Vol] 61 U/L 40-129 [facility] Serum or plasma calcium nicolasa urement (mass/volume)Ordered By: Jayson Bartlett on 07-24-2024 Calcium [Mass/Vol] 8.7 mg/dL 7.6-11.0 [facility] Serum or plasma urea nitroge n measurement (mass/volume)Ordered By: Jayson Bartlett on 07-24-2024 Urea nitrogen [Mass/Vol] 19 mg/dL 4-19 [facility] Sodium levelOrdered By: Jayson Bartlett on 07-24-2024 Sodium [Moles/Vol] 132 mmol/L Low 133-145 [facility] Squamous epithelial cells de tection in urine sediment by light microscopyOrdered By: Jayson Bartlett on 07-24-2024 Epithelial cells.squamous LM Ql (Urine sed) 0 SEEN /hpf 0-5 [facility] Total proteinOrdered By: Marianne Bartlett on 07-24-2024 Protein [Mass/Vol] 5.4 g/dL Low 5.9-8.4 [facility] Toxic granules LM Ql (Bld)Or dered By: Jayson Bartlett on 07-24-2024 Toxic Granulation 2. [facility] Toxic leukocyte granulation detectionOrdered By: Jayson Bartlett on 07-24-2024 Toxic granules LM Ql (Bld) 2. [facility] Urinalysis, Completeon 07-24 Mucus Ql (Urine sed) 1+ /hpf Normal [facility] Comment on above: Order Comment: CLEAN CATCH Performed By: #### L 400.0001, M100.678, M100.2200 ####[facility] [address] [place], [address] WBC 0-5 SEEN Normal 0-5 [facility] Comment on above: Order Comment: CLEAN CATCH Performed By: #### L 400.0001, M100.678, M100.2200 ####[facility] [address] [place], [address] BACTERIA 0 SEEN Normal None Seen [facility] Comment on above: Order Comment: CLEAN CATCH Performed By: #### L 400.0001, M100.678, M100.2200 ####[facility] [address] [place], [address] EPI,SQUAMOUS 0 SEEN Normal 0-5 [facility] Comment on above: Order Comment: CLEAN CATCH Performed By: #### L 400.0001, M100.678, M100.2200 ####[facility] [address] [place], [address] RBC 0 SEEN Normal 0-5 [facility] Comment on above: Order Comment: CLEAN CATCH Performed By: #### L 400.0001, M100.678, M100.2200 ####[facility] [address] [place], [address] Urine blood detectionOrdered By: Jayson Bartlett on 07-24-2024 Urine Occult Blood 10 /ul High Negative [facility] Urine clarityOrdered By: Marianne Bartlett on 07-24-2024 Clarity (U) Clear Clear [facility] Urine color determinationOrd ered By: Jayson Bartlett on 07-24-2024 Color (U) Yellow Yellow [facility] Urine cultureOrdered By: Marianne Bartlett on 07-24-2024 Bacteria identified Cx Nom (U) Culture exhibits no growth. [facility] Urine glucose detectionOrder ed By: Jayson Bartlett on 07-24-2024 Glucose Ql (U) Normal mg/dl Normal [facility] Urine leukocyte esterase det ection by dipstickOrdered By: Jayson Bartlett on 07-24-2024 Leukocyte esterase Test strip Ql (U) 25 /ul High Negative [facility] Urine pHOrdered By: Jayson salcido on 07-24-2024 pH (U) 5.0 [pH] 5.0 - 8.0 [facility] Urine sediment bacteria coun t by microscopy (number/high power field)Ordered By: Jayson Bartlett on 07-24-2024 Bacteria LM.HPF (Urine sed) [#/Area] 0 /[HPF] None Seen [facility] Urine specific gravity measu rementOrdered By: Jayson Bartlett on 07-24-2024 Specific gravity (U) [Rel density] 1.020 1.002-1.030 [facility] Urine urobilinogen measureme ntOrdered By: Jayson Bartlett on 07-24-2024 Urobilinogen Ql (U) Normal mg/dl Normal [facility] Urobilinogen Ql (U)Ordered B y: Jayson Bartlett on 07-24-2024 Urine Urobilinogen Normal mg/dl Normal [facility] White blood cell (WBC) count Ordered By: Jayson Bartlett on 07-24-2024 WBC (Bld) [#/Vol] 1.2 10*3/uL Low 4.4-11.0 [facility] Comment on above: CRITICAL VALUE CAMARENA D TO Pushpa SALINAS Barak Tillman.RESULTS READ BACK BY SAME. White blood cell countOrdere d By: Jayson Bartlett on 07-24-2024 Urine WBC 0-5 SEEN /hpf 0-5 [facility] White blood cell count 0-5 SEEN /hpf 0-5 [facility] aPTT Coag (PPP) [Time]Ordere d By: Jayson Bartlett on 07-24-2024 aPTT Coag (Bld) [Time] 25.7 s 24.1-36.2 [facility] Radiation Oncology Visiton 0 07-16-2024 Radiation Oncology Visit Normal [facility] Absolute neutrophil countOrd ered By: Donny Martinez on 07-15-2024 Neutrophils (Bld) [#/Vol] 3.2 10*3/uL 2.0-7.7 [facility] Anion gap in Serum or Plasma Ordered By: Donny Martinez on 07-15-2024 Anion gap [Moles/Vol] 10 mmol/L 5-15 [facility] Automated blood erythrocyte countOrdered By: Donny Martinez on 07-15-2024 RBC (Bld) [#/Vol] 4.44 10*6/uL Low 4.6-6.2 [facility] Comment on above: Performed By: #### L 501.5200, L500.4050, L100.0100 ####[facility] [address] [place], [address] Automated blood hematocrit ( percentage)Ordered By: Donny Martinez on 07-15-2024 Hematocrit (Bld) [Volume fraction] 35.5 % Low 40-54 [facility] Comment on above: Performed By: #### L 501.5200, L500.4050, L100.0100 ####[facility] [address] [place], [address] Automated lymphocyte count a s percentage of total leukocytesOrdered By: Donny Martinez on 07-15-2024 Lymphocytes/100 WBC (Bld) 9.7 % Low 19-41 [facility] Comment on above: Performed By: #### L 501.5200, L500.4050, L100.0100 ####[facility] [address] [place], [address] BUN/creatinine ratioOrdered By: Donny Martinez on 07-15-2024 Urea nitrogen/Creatinine [Mass ratio] 16.9 mg/mg 10-20 [facility] Basophil percentageOrdered B y: Donny Martinez on 07-15-2024 Basophils/100 WBC (Bld) 0.6 % Normal 0-1 [facility] Comment on above: Performed By: #### L 501.5200, L500.4050, L100.0100 ####[facility] [address] [place], [address] Bilirubin, totalOrdered By: Donny Martinez on 07-15-2024 Bilirubin [Mass/Vol] 0.31 mg/dL 0.00-1.30 [facility] CBC W/Diff, Automatedon 06-17 Absolute Lymph 0.45 X10 3/uL Low 0.83-4.51 [facility] Comment on above: Performed By: #### L 501.5200, L500.4050, L100.0100 ####[facility] [address] [place], [address] Absolute Neut 3.2 X10 3/uL Normal 2.0-7.7 [facility] Comment on above: Performed By: #### L 501.5200, L500.4050, L100.0100 ####[facility] [address] [place], [address] IG% 0.400 Normal 0.0-0.9 [facility] Comment on above: Result Comment: IG% - Immature Granulocytes (promyelocytes, myelocytes andmetamyelocytes) > 1% indicates that a LEFT SHIFT is Present. Performed By: #### L 501.5200, L500.4050, L100.0100 ####[facility] [address] [place], [address] Nucleated RBC (Bld) [#/Vol] 0 10*3/uL Normal 0-5 [facility] Comment on above: Performed By: #### L 501.5200, L500.4050, L100.0100 ####[facility] [address] [place], [address] RDW SD 40.7 fl Normal 35.1-43.9 [facility] Comment on above: Performed By: #### L 501.5200, L500.4050, L100.0100 ####[facility] [address] [place], [address] Carbon dioxide, total [Moles /volume] in Central venous bloodOrdered By: Donny Martinez on 07-15-2024 CO2 [Moles/Vol] 20.7 mmol/L Low 21.0-32.0 [facility] Chloride assayOrdered By: Zonia Martinez on 07-15-2024 Chloride [Moles/Vol] 106 mmol/L 98-108 [facility] Comprehensive Metabolic Prof ilon 07-15-2024 Albumin [Mass/Vol] 3.9 g/dL Normal 3.4-4.8 [facility] Comment on above: Performed By: #### L 501.5200, L500.4050, L100.0100 ####[facility] [address] [place], [address] Albumin/Globulin [Mass ratio] 1.6 {ratio} Normal 0.9-2.4 [facility] Comment on above: Performed By: #### L 501.5200, L500.4050, L100.0100 ####[facility] [address] [place], [address] ALK PHOS 89 U/L Normal 40-129 [facility] Comment on above: Performed By: #### L 501.5200, L500.4050, L100.0100 ####[facility] [address] [place], [address] ALT [Catalytic activity/Vol] 15 U/L Normal <=46 [facility] Comment on above: Performed By: #### L 501.5200, L500.4050, L100.0100 ####[facility] [address] [place], [address] AST [Catalytic activity/Vol] 16 U/L Normal <=37 [facility] Comment on above: Performed By: #### L 501.5200, L500.4050, L100.0100 ####[facility] [address] [place], [address] Bilirubin [Mass/Vol] 0.31 mg/dL Normal 0.00-1.30 [facility] Comment on above: Performed By: #### L 501.5200, L500.4050, L100.0100 ####[facility] [address] [place], [address] BUN/CRE 16.9 RATIO Normal 10-20 [facility] Comment on above: Performed By: #### L 501.5200, L500.4050, L100.0100 ####[facility] [address] [place], [address] Calcium [Mass/Vol] 9.4 mg/dL Normal 7.6-11.0 [facility] Comment on above: Performed By: #### L 501.5200, L500.4050, L100.0100 ####[facility] [address] [place], [address] Chloride [Moles/Vol] 106 mmol/L Normal 98-108 [facility] Comment on above: Performed By: #### L 501.5200, L500.4050, L100.0100 ####[facility] [address] [place], [address] CO2 [Moles/Vol] 20.7 mmol/L Low 21.0-32.0 [facility] Comment on above: Performed By: #### L 501.5200, L500.4050, L100.0100 ####[facility] [address] [place], [address] Creatinine [Mass/Vol] 1.00 mg/dL Normal 0.70-1.20 [facility] Comment on above: Performed By: #### L 501.5200, L500.4050, L100.0100 ####[facility] [address] [place], [address] ECRCL 60.65 ml/min Normal 50-250 [facility] Comment on above: Performed By: #### L 501.5200, L500.4050, L100.0100 ####[facility] [address] [place], [address] GAP 10 Normal 5-15 [facility] Comment on above: Performed By: #### L 501.5200, L500.4050, L100.0100 ####[facility] [address] [place], [address] GFR/1.73 sq M.predicted among non-blacks MDRD (S/P/Bld) [Vol rate/Area] 82 mL/min/{1.73_m2} Normal >60 [facility] Comment on above: Result Comment: mL/m in/1.73m2 CKD-EPI Creatinine Equation (2020) Performed By: #### L 501.5200, L500.4050, L100.0100 ####[facility] [address] [place], [address] Globulin (S) [Mass/Vol] 2.3 g/dL Normal 2.2-4.2 [facility] Comment on above: Performed By: #### L 501.5200, L500.4050, L100.0100 ####[facility] [address] [place], [address] Glucose [Mass/Vol] 93 mg/dL Normal 70-99 [facility] Comment on above: Performed By: #### L 501.5200, L500.4050, L100.0100 ####[facility] [address] [place], [address] Potassium [Moles/Vol] 4.3 mmol/L Normal 3.3-5.1 [facility] Comment on above: Performed By: #### L 501.5200, L500.4050, L100.0100 ####[facility] [address] [place], [address] Sodium [Moles/Vol] 137 mmol/L Normal 133-145 [facility] Comment on above: Performed By: #### L 501.5200, L500.4050, L100.0100 ####[facility] [address] [place], [address] T PROT 6.2 g/dL Normal 5.9-8.4 [facility] Comment on above: Performed By: #### L 501.5200, L500.4050, L100.0100 ####[facility] [address] [place], [address] Urea nitrogen [Mass/Vol] 17 mg/dL Normal 4-19 [facility] Comment on above: Performed By: #### L 501.5200, L500.4050, L100.0100 ####[facility] [address] [place], [address] Eosinophil percentageOrdered By: Donny Martinez on 07-15-2024 Eosinophils/100 WBC (Bld) 6.9 % High 0-5 [facility] Comment on above: Performed By: #### L 501.5200, L500.4050, L100.0100 ####[facility] [address] [place], [address] Erythrocyte distribution wid th (RBC) [Ratio]Ordered By: Donny Martinez on 07-15-2024 Erythrocyte distribution width (RBC) [Entitic vol] 40.7 fL 35.1-43.9 [facility] Erythrocyte distribution wid th ratioOrdered By: Donny Martinez on 07-15-2024 Erythrocyte distribution width (RBC) [Ratio] 14.5 % Normal 11.6-14.6 [facility] Comment on above: Performed By: #### L 501.5200, L500.4050, L100.0100 ####[facility] [address] [place], [place], [id number] Estimation of creatinine juan aranceOrdered By: Donny Martinez on 07-15-2024 Estimated Creatinine Clearance Calc 60.65 ml/min 50-250 [facility] GFR/1.73 sq M.predicted davida g non-blacks MDRD (S/P/Bld) [Vol rate/Area]Ordered By: Donny Martinez on 07-15-2024 Estimated GFR (MDRD) Non-Af Amer 82 >60 [facility] Comment on above: mL/min/1.73m2 CKD-EP I Creatinine Equation (2020) Hemoglobin measurementOrdere d By: Donny Martinez on 07-15-2024 Hemoglobin (Bld) [Mass/Vol] 12.4 g/dL Low 13.0-16.5 [facility] Comment on above: Performed By: #### L 501.5200, L500.4050, L100.0100 ####[facility] [address] [place], [place], [address] Immature granulocytes/100 WB C Auto (Bld)Ordered By: Donny Martinez on 07-15-2024 Immature granulocytes/100 WBC (Bld) 0.400 % 0.0-0.9 [facility] Comment on above: IG% - Immature Granu locytes (promyelocytes, myelocytes and metamyelocytes) > 1% indicates that a LEFT SHIFT is Present. Laboratory - Chemistry and C hemistry - challengeOrdered By: Donny Martinez on 07-15-2024 AST [Catalytic activity/Vol] 16 U/L <38 [facility] Lymphocytes Auto (Unsp spec) [#/Vol]Ordered By: Donny Martinez on 07-15-2024 Lymphocytes (Bld) [#/Vol] 0.45 10*3/uL Low 0.83-4.51 [facility] MCV (mean corpuscular volume ) determinationOrdered By: Donny Martinez on 07-15-2024 MCV (RBC) [Entitic vol] 80.0 fL Normal 80-94 [facility] Comment on above: Performed By: #### L 501.5200, L500.4050, L100.0100 ####[facility] [address] [place], [address] Magnesiumon 07-15-2024 Magnesium [Mass/Vol] 2.1 mg/dL Normal 1.5-2.2 [facility] Comment on above: Performed By: #### L 501.5200, L500.4050, L100.0100 ####[facility] [address] [place], [address] Magnesium (Unsp spec) [Mass/ Vol]Ordered By: Donny Martinez on 07-15-2024 Magnesium [Mass/Vol] 2.1 mg/dL 1.5-2.2 [facility] Mean corpuscular hemoglobin (MCH) determinationOrdered By: Donny Martinez on 07-15-2024 MCH (RBC) [Entitic mass] 27.9 pg Normal 27.0-32.0 [facility] Comment on above: Performed By: #### L 501.5200, L500.4050, L100.0100 ####[facility] [address] [place], [address] Mean corpuscular hemoglobin concentration (MCHC) determinationOrdered By: Donny Martinez on 07-15-2024 MCHC (RBC) [Mass/Vol] 34.9 g/dL Normal 32-36 [facility] Comment on above: Performed By: #### L 501.5200, L500.4050, L100.0100 ####[facility] [address] [place], [address] Mean platelet volume determi nationOrdered By: Donny Martinez on 07-15-2024 Platelet mean volume (Bld) [Entitic vol] 8.9 fL Normal 6.2-12.0 [facility] Comment on above: Performed By: #### L 501.5200, L500.4050, L100.0100 ####[facility] [address] [place], [address] Monocyte percentageOrdered B y: Donny Martinez on 07-15-2024 Monocytes/100 WBC (Bld) 12.8 % High 0-10 [facility] Comment on above: Performed By: #### L 501.5200, L500.4050, L100.0100 ####[facility] [address] [place], [address] Neutrophil percentageOrdered By: Donny Martinez on 07-15-2024 Neutrophils/100 WBC (Bld) 69.6 % Normal 47-70 [facility] Comment on above: Performed By: #### L 501.5200, L500.4050, L100.0100 ####[facility] [address] [place], [address] Nucleated red blood cell per centageOrdered By: Donny Martinez on 07-15-2024 Nucleated RBC/100 WBC (Bld) [Ratio] 0 % 0-5 [facility] Oncology Visit Reporton 06-17 Oncology Visit Report Normal [facility] Platelet countOrdered By: Zonia Martinez on 07-15-2024 Platelets (Bld) [#/Vol] 141 10*3/uL Low 150-450 [facility] Comment on above: Performed By: #### L 501.5200, L500.4050, L100.0100 ####[facility] [address] [place], [address] Potassium (Unsp spec) [Mass/ Vol]Ordered By: Donny Martinez on 07-15-2024 Potassium [Moles/Vol] 4.3 mmol/L 3.3-5.1 [facility] Serum creatinine measurement (mass/volume)Ordered By: Donny Martinez on 07-15-2024 Creatinine [Mass/Vol] 1.00 mg/dL 0.70-1.20 [facility] Serum globulin measurementOr dered By: Donny Martinez on 07-15-2024 Globulin (S) [Mass/Vol] 2.3 g/dL 2.2-4.2 [facility] Serum glucose measurement (m ass/volume)Ordered By: Donny Martinez on 07-15-2024 Glucose [Mass/Vol] 93 mg/dL 70-99 [facility] Serum or plasma alanine cheung otransferase (ALT) measurementOrdered By: Donny Martinez on 07-15-2024 ALT [Catalytic activity/Vol] 15 U/L <47 [facility] Serum or plasma albumin nicolasa urement (mass/volume)Ordered By: Donny Martinez on 07-15-2024 Albumin [Mass/Vol] 3.9 g/dL 3.4-4.8 [facility] Serum or plasma albumin/glob ulin mass ratioOrdered By: Donny Martinez on 07-15-2024 Albumin/Globulin [Mass ratio] 1.6 {ratio} 0.9-2.4 [facility] Serum or plasma alkaline daisy sphatase measurementOrdered By: Donny Martinez on 07-15-2024 ALP [Catalytic activity/Vol] 89 U/L 40-129 [facility] Serum or plasma calcium nicolasa urement (mass/volume)Ordered By: Donny Martinez on 07-15-2024 Calcium [Mass/Vol] 9.4 mg/dL 7.6-11.0 [facility] Serum or plasma urea nitroge n measurement (mass/volume)Ordered By: Donny Martinez on 07-15-2024 Urea nitrogen [Mass/Vol] 17 mg/dL 4-19 [facility] Sodium levelOrdered By: Rudy Martinez on 07-15-2024 Sodium [Moles/Vol] 137 mmol/L 133-145 [facility] Total proteinOrdered By: Mohsen Martinez on 07-15-2024 Protein [Mass/Vol] 6.2 g/dL 5.9-8.4 [facility] White blood cell (WBC) count Ordered By: Donny Martinez on 07-15-2024 WBC (Bld) [#/Vol] 4.6 10*3/uL Normal 4.4-11.0 [facility] Comment on above: Performed By: #### L 501.5200, L500.4050, L100.0100 ####[facility] [address] [place], [address] Radiation Oncology Visiton 0 07-11-2024 Radiation Oncology Visit Normal [facility] CBC W/Diff, Automatedon -2 Absolute Lymph 0.53 X10 3/uL Low 0.83-4.51 [facility] Comment on above: Performed By: #### L 100.0100, L501.5200, L500.4050 ####[facility] [address] [place], [address] Absolute Neut 3.8 X10 3/uL Normal 2.0-7.7 [facility] Comment on above: Performed By: #### L 100.0100, L501.5200, L500.4050 ####[facility] [address] [place], [address] Basophils/100 WBC (Bld) 0.4 % Normal 0-1 [facility] Comment on above: Performed By: #### L 100.0100, L501.5200, L500.4050 ####[facility] [address] [place], [address] Eosinophils/100 WBC (Bld) 3.0 % Normal 0-5 [facility] Comment on above: Performed By: #### L 100.0100, L501.5200, L500.4050 ####[facility] [address] [place], [address] Erythrocyte distribution width (RBC) [Ratio] 14.6 % Normal 11.6-14.6 [facility] Comment on above: Performed By: #### L 100.0100, L501.5200, L500.4050 ####[facility] [address] [place], [address] Hematocrit (Bld) [Volume fraction] 37.4 % Low 40-54 [facility] Comment on above: Performed By: #### L 100.0100, L501.5200, L500.4050 ####[facility] [address] [place], [address] Hemoglobin (Bld) [Mass/Vol] 13.0 g/dL Normal 13.0-16.5 [facility] Comment on above: Performed By: #### L 100.0100, L501.5200, L500.4050 ####[facility] [address] [place], [address] IG% 0.200 Normal 0.0-0.9 [facility] Comment on above: Result Comment: IG% - Immature Granulocytes (promyelocytes, myelocytes andmetamyelocytes) > 1% indicates that a LEFT SHIFT is Present. Performed By: #### L 100.0100, L501.5200, L500.4050 ####[facility] [address] [place], [address] Lymphocytes/100 WBC (Bld) 10.8 % Low 19-41 [facility] Comment on above: Performed By: #### L 100.0100, L501.5200, L500.4050 ####[facility] [address] [place], [address] MCH (RBC) [Entitic mass] 28.0 pg Normal 27.0-32.0 [facility] Comment on above: Performed By: #### L 100.0100, L501.5200, L500.4050 ####[facility] [address] [place], [address] MCHC (RBC) [Mass/Vol] 34.8 g/dL Normal 32-36 [facility] Comment on above: Performed By: #### L 100.0100, L501.5200, L500.4050 ####[facility] [address] [place], [address] MCV (RBC) [Entitic vol] 80.4 fL Normal 80-94 [facility] Comment on above: Performed By: #### L 100.0100, L501.5200, L500.4050 ####[facility] [address] [place], [address] Monocytes/100 WBC (Bld) 9.3 % Normal 0-10 [facility] Comment on above: Performed By: #### L 100.0100, L501.5200, L500.4050 ####[facility] [address] [place], [address] Neutrophils/100 WBC (Bld) 76.3 % High 47-70 [facility] Comment on above: Performed By: #### L 100.0100, L501.5200, L500.4050 ####[facility] [address] [place], [address] Nucleated RBC (Bld) [#/Vol] 0 10*3/uL Normal 0-5 [facility] Comment on above: Performed By: #### L 100.0100, L501.5200, L500.4050 ####[facility] [address] [place], [address] Platelet mean volume (Bld) [Entitic vol] 9.0 fL Normal 6.2-12.0 [facility] Comment on above: Performed By: #### L 100.0100, L501.5200, L500.4050 ####[facility] [address] [place], [address] Platelets (Bld) [#/Vol] 145 10*3/uL Low 150-450 [facility] Comment on above: Performed By: #### L 100.0100, L501.5200, L500.4050 ####[facility] [address] [place], [address] RBC (Bld) [#/Vol] 4.65 10*6/uL Normal 4.6-6.2 [facility] Comment on above: Performed By: #### L 100.0100, L501.5200, L500.4050 ####[facility] [address] [place], [address] RDW SD 42.2 fl Normal 35.1-43.9 [facility] Comment on above: Performed By: #### L 100.0100, L501.5200, L500.4050 ####[facility] [address] [place], [address] WBC (Bld) [#/Vol] 4.9 10*3/uL Normal 4.4-11.0 [facility] Comment on above: Performed By: #### L 100.0100, L501.5200, L500.4050 ####[facility] [address] [place], [address] Absolute Neut Normal 2.0-7.7 [facility] Comment on above: Result Comment: DUPL ICATE ORDER Performed By: #### L 500.4050, L100.0100 ####[facility] [address] [place], [address] HCT Normal 40-54 [facility] Comment on above: Result Comment: DUPL ICATE ORDER Performed By: #### L 500.4050, L100.0100 ####[facility] [address] [place], [address] HGB Normal 13.0-16.5 [facility] Comment on above: Result Comment: DUPL ICATE ORDER Performed By: #### L 500.4050, L100.0100 ####[facility] [address] [place], [address] MCH Normal 27.0-32.0 [facility] Comment on above: Result Comment: DUPL ICATE ORDER Performed By: #### L 500.4050, L100.0100 ####[facility] [address] [place], [address] MCHC Normal 32-36 [facility] Comment on above: Result Comment: DUPL ICATE ORDER Performed By: #### L 500.4050, L100.0100 ####[facility] [address] [place], [address] MCV Normal 80-94 [facility] Comment on above: Result Comment: DUPL ICATE ORDER Performed By: #### L 500.4050, L100.0100 ####[facility] [address] [place], [address] NEUT% Normal 47-70 [facility] Comment on above: Result Comment: DUPL ICATE ORDER Performed By: #### L 500.4050, L100.0100 ####[facility] [address] [place], [address] PLT Normal 150-450 [facility] Comment on above: Result Comment: DUPL ICATE ORDER Performed By: #### L 500.4050, L100.0100 ####[facility] [address] [place], [address] RBC Normal 4.6-6.2 [facility] Comment on above: Result Comment: DUPL ICATE ORDER Performed By: #### L 500.4050, L100.0100 ####[facility] [address] [place], [address] RDW CV Normal 11.6-14.6 [facility] Comment on above: Result Comment: DUPL ICATE ORDER Performed By: #### L 500.4050, L100.0100 ####[facility] [address] [place], [address] RDW SD Normal 35.1-43.9 [facility] Comment on above: Result Comment: DUPL ICATE ORDER Performed By: #### L 500.4050, L100.0100 ####[facility] [address] [place], [address] WBC Normal 4.4-11.0 [facility] Comment on above: Result Comment: DUPL ICATE ORDER Performed By: #### L 500.4050, L100.0100 ####[facility] [address] [place], [address] Comprehensive Metabolic Prof ilon 07-08-2024 Albumin [Mass/Vol] 3.9 g/dL Normal 3.4-4.8 [facility] Comment on above: Performed By: #### L 100.0100, L501.5200, L500.4050 ####[facility] [address] [place], [address] Albumin/Globulin [Mass ratio] 1.7 {ratio} Normal 0.9-2.4 [facility] Comment on above: Performed By: #### L 100.0100, L501.5200, L500.4050 ####[facility] [address] [place], [address] ALK PHOS 81 U/L Normal 40-129 [facility] Comment on above: Performed By: #### L 100.0100, L501.5200, L500.4050 ####[facility] [address] [place], [address] ALT [Catalytic activity/Vol] 21 U/L Normal <=46 [facility] Comment on above: Performed By: #### L 100.0100, L501.5200, L500.4050 ####[facility] [address] [place], [address] AST [Catalytic activity/Vol] 18 U/L Normal <=37 [facility] Comment on above: Performed By: #### L 100.0100, L501.5200, L500.4050 ####[facility] [address] [place], [address] Bilirubin [Mass/Vol] 0.49 mg/dL Normal 0.00-1.30 [facility] Comment on above: Performed By: #### L 100.0100, L501.5200, L500.4050 ####[facility] [address] [place], [address] BUN/CRE 19.3 RATIO Normal 10-20 [facility] Comment on above: Performed By: #### L 100.0100, L501.5200, L500.4050 ####[facility] [address] [place], [address] Calcium [Mass/Vol] 9.6 mg/dL Normal 7.6-11.0 [facility] Comment on above: Performed By: #### L 100.0100, L501.5200, L500.4050 ####[facility] [address] [place], [address] Chloride [Moles/Vol] 104 mmol/L Normal 98-108 [facility] Comment on above: Performed By: #### L 100.0100, L501.5200, L500.4050 ####[facility] [address] [place], [address] CO2 [Moles/Vol] 23.9 mmol/L Normal 21.0-32.0 [facility] Comment on above: Performed By: #### L 100.0100, L501.5200, L500.4050 ####[facility] [address] [place], [address] Creatinine [Mass/Vol] 1.00 mg/dL Normal 0.70-1.20 [facility] Comment on above: Performed By: #### L 100.0100, L501.5200, L500.4050 ####[facility] [address] [place], [address] ECRCL 60.65 ml/min Normal 50-250 [facility] Comment on above: Performed By: #### L 100.0100, L501.5200, L500.4050 ####[facility] [address] [place], [address] GAP 11 Normal 5-15 [facility] Comment on above: Performed By: #### L 100.0100, L501.5200, L500.4050 ####[facility] [address] [place], [address] GFR/1.73 sq M.predicted among non-blacks MDRD (S/P/Bld) [Vol rate/Area] 81 mL/min/{1.73_m2} Normal >60 [facility] Comment on above: Result Comment: mL/m in/1.73m2 CKD-EPI Creatinine Equation (2020) Performed By: #### L 100.0100, L501.5200, L500.4050 ####[facility] [address] [place], [address] Globulin (S) [Mass/Vol] 2.3 g/dL Normal 2.2-4.2 [facility] Comment on above: Performed By: #### L 100.0100, L501.5200, L500.4050 ####[facility] [address] [place], [address] Glucose [Mass/Vol] 90 mg/dL Normal 70-99 [facility] Comment on above: Performed By: #### L 100.0100, L501.5200, L500.4050 ####[facility] [address] [place], [address] Potassium [Moles/Vol] 3.9 mmol/L Normal 3.3-5.1 [facility] Comment on above: Performed By: #### L 100.0100, L501.5200, L500.4050 ####[facility] [address] [place], [address] Sodium [Moles/Vol] 138 mmol/L Normal 133-145 [facility] Comment on above: Performed By: #### L 100.0100, L501.5200, L500.4050 ####[facility] [address] [place], [address] T PROT 6.2 g/dL Normal 5.9-8.4 [facility] Comment on above: Performed By: #### L 100.0100, L501.5200, L500.4050 ####[facility] [address] [place], [address] Urea nitrogen [Mass/Vol] 19 mg/dL Normal 4-19 [facility] Comment on above: Performed By: #### L 100.0100, L501.5200, L500.4050 ####[facility] [address] [place], [address] ALB Normal 3.4-4.8 [facility] Comment on above: Result Comment: DUPL ICATE ORDER Performed By: #### L 500.4050, L100.0100 ####[facility] [address] [place], [address] ALK PHOS Normal 40-129 [facility] Comment on above: Result Comment: DUPL ICATE ORDER Performed By: #### L 500.4050, L100.0100 ####[facility] [address] [place], [address] ALT Normal <=46 [facility] Comment on above: Result Comment: DUPL ICATE ORDER Performed By: #### L 500.4050, L100.0100 ####[facility] [address] [place], [address] AST Normal <=37 [facility] Comment on above: Result Comment: DUPL ICATE ORDER Performed By: #### L 500.4050, L100.0100 ####[facility] [address] [place], [address] BUN Normal 4-19 [facility] Comment on above: Result Comment: DUPL ICATE ORDER Performed By: #### L 500.4050, L100.0100 ####[facility] [address] [place], [address] BUN/CRE Normal 10-20 [facility] Comment on above: Result Comment: DUPL ICATE ORDER Performed By: #### L 500.4050, L100.0100 ####[facility] [address] [place], [address] Calcium Normal 7.6-11.0 [facility] Comment on above: Result Comment: DUPL ICATE ORDER Performed By: #### L 500.4050, L100.0100 ####[facility] [address] [place], [address] CL Normal 98-108 [facility] Comment on above: Result Comment: DUPL ICATE ORDER Performed By: #### L 500.4050, L100.0100 ####[facility] [address] [place], [address] CO2 Normal 21.0-32.0 [facility] Comment on above: Result Comment: DUPL ICATE ORDER Performed By: #### L 500.4050, L100.0100 ####[facility] [address] [place], [address] CREAT,SERUM Normal 0.70-1.20 [facility] Comment on above: Result Comment: DUPL ICATE ORDER Performed By: #### L 500.4050, L100.0100 ####[facility] [address] [place], [address] eGFR Normal >60 [facility] Comment on above: Result Comment: DUPL ICATE ORDER Performed By: #### L 500.4050, L100.0100 ####[facility] [address] [place], [address] GAP Normal 5-15 [facility] Comment on above: Result Comment: DUPL ICATE ORDER Performed By: #### L 500.4050, L100.0100 ####[facility] [address] [place], [address] GLU Normal 70-99 [facility] Comment on above: Result Comment: DUPL ICATE ORDER Performed By: #### L 500.4050, L100.0100 ####[facility] [address] [place], [address] Potassium Normal 3.3-5.1 [facility] Comment on above: Result Comment: DUPL ICATE ORDER Performed By: #### L 500.4050, L100.0100 ####[facility] [address] [place], [address] T BILI Normal 0.00-1.30 [facility] Comment on above: Result Comment: DUPL ICATE ORDER Performed By: #### L 500.4050, L100.0100 ####[facility] [address] [place], [address] T PROT Normal 5.9-8.4 [facility] Comment on above: Result Comment: DUPL ICATE ORDER Performed By: #### L 500.4050, L100.0100 ####[facility] [address] [place], [address] Comprehensive Metabolic Profil Normal 133-145 [facility] Comment on above: Result Comment: DUPL ICATE ORDER Performed By: #### L 500.4050, L100.0100 ####[facility] [address] [place], [address] Magnesiumon 07-08-2024 Magnesium [Mass/Vol] 2.2 mg/dL Normal 1.5-2.2 [facility] Comment on above: Performed By: #### L 100.0100, L501.5200, L500.4050 ####[facility] [address] [place], [address] Oncology Visit Reporton - Oncology Visit Report Normal [facility] Radiation Oncology Visiton 0 - Radiation Oncology Visit Normal [facility] CBC W/Diff, Automatedon 06-15 Absolute Lymph 0.68 X10 3/uL Low 0.83-4.51 [facility] Comment on above: Performed By: #### L 501.5200, L500.4050, L100.0100 ####[facility] [address] [place], [address] Absolute Neut 2.8 X10 3/uL Normal 2.0-7.7 [facility] Comment on above: Performed By: #### L 501.5200, L500.4050, L100.0100 ####[facility] [address] [place], [address] Basophils/100 WBC (Bld) 0.5 % Normal 0-1 [facility] Comment on above: Performed By: #### L 501.5200, L500.4050, L100.0100 ####[facility] [address] [place], [address] Eosinophils/100 WBC (Bld) 5.0 % Normal 0-5 [facility] Comment on above: Performed By: #### L 501.5200, L500.4050, L100.0100 ####[facility] [address] [place], [address] Erythrocyte distribution width (RBC) [Ratio] 14.9 % High 11.6-14.6 [facility] Comment on above: Performed By: #### L 501.5200, L500.4050, L100.0100 ####[facility] [address] [place], [address] Hematocrit (Bld) [Volume fraction] 38.5 % Low 40-54 [facility] Comment on above: Performed By: #### L 501.5200, L500.4050, L100.0100 ####[facility] [address] [place], [address] Hemoglobin (Bld) [Mass/Vol] 12.9 g/dL Low 13.0-16.5 [facility] Comment on above: Performed By: #### L 501.5200, L500.4050, L100.0100 ####[facility] [address] [place], [address] IG% 0.500 Normal 0.0-0.9 [facility] Comment on above: Result Comment: IG% - Immature Granulocytes (promyelocytes, myelocytes andmetamyelocytes) > 1% indicates that a LEFT SHIFT is Present. Performed By: #### L 501.5200, L500.4050, L100.0100 ####[facility] [address] [place], [address] Lymphocytes/100 WBC (Bld) 16.9 % Low 19-41 [facility] Comment on above: Performed By: #### L 501.5200, L500.4050, L100.0100 ####[facility] [address] [place], [address] MCH (RBC) [Entitic mass] 27.3 pg Normal 27.0-32.0 [facility] Comment on above: Performed By: #### L 501.5200, L500.4050, L100.0100 ####[facility] [address] [place], [address] MCHC (RBC) [Mass/Vol] 33.5 g/dL Normal 32-36 [facility] Comment on above: Performed By: #### L 501.5200, L500.4050, L100.0100 ####[facility] [address] [place], [address] MCV (RBC) [Entitic vol] 81.6 fL Normal 80-94 [facility] Comment on above: Performed By: #### L 501.5200, L500.4050, L100.0100 ####[facility] [address] [place], [address] Monocytes/100 WBC (Bld) 8.7 % Normal 0-10 [facility] Comment on above: Performed By: #### L 501.5200, L500.4050, L100.0100 ####[facility] [address] [place], [address] Neutrophils/100 WBC (Bld) 68.4 % Normal 47-70 [facility] Comment on above: Performed By: #### L 501.5200, L500.4050, L100.0100 ####[facility] [address] [place], [address] Nucleated RBC (Bld) [#/Vol] 0 10*3/uL Normal 0-5 [facility] Comment on above: Performed By: #### L 501.5200, L500.4050, L100.0100 ####[facility] [address] [place], [address] Platelet mean volume (Bld) [Entitic vol] 9.5 fL Normal 6.2-12.0 [facility] Comment on above: Performed By: #### L 501.5200, L500.4050, L100.0100 ####[facility] [address] [place], [address] Platelets (Bld) [#/Vol] 180 10*3/uL Normal 150-450 [facility] Comment on above: Performed By: #### L 501.5200, L500.4050, L100.0100 ####[facility] [address] [place], [address] RBC (Bld) [#/Vol] 4.72 10*6/uL Normal 4.6-6.2 [facility] Comment on above: Performed By: #### L 501.5200, L500.4050, L100.0100 ####[facility] [address] [place], [address] RDW SD 44.7 fl High 35.1-43.9 [facility] Comment on above: Performed By: #### L 501.5200, L500.4050, L100.0100 ####[facility] [address] [place], [address] WBC (Bld) [#/Vol] 4.0 10*3/uL Low 4.4-11.0 [facility] Comment on above: Performed By: #### L 501.5200, L500.4050, L100.0100 ####[facility] [address] [place], [address] Comprehensive Metabolic Prof ilon 07-01-2024 BUN/CRE 18.9 RATIO Normal 10-20 [facility] Comment on above: Performed By: #### L 501.5200, L500.4050, L100.0100 ####[facility] [address] [place], [address] Urea nitrogen [Mass/Vol] 17 mg/dL Normal 4-19 [facility] Comment on above: Performed By: #### L 501.5200, L500.4050, L100.0100 ####[facility] [address] [place], [address] Magnesiumon 07-01-2024 Magnesium [Mass/Vol] 2.3 mg/dL High 1.5-2.2 [facility] Comment on above: Performed By: #### L 501.5200, L500.4050, L100.0100 ####[facility] [address] [place], [address] Oncology Visit Reporton 06-15 Oncology Visit Report Normal [facility] Radiation Oncology Visiton 0 - Radiation Oncology Visit Normal [facility] CBC W/Diff, Automatedon 06-15 Absolute Lymph 1.02 X10 3/uL Normal 0.83-4.51 [facility] Comment on above: Performed By: #### L 100.0100, L500.4050, L501.5200 ####[facility] [address] [place], [address] Absolute Neut 3.1 X10 3/uL Normal 2.0-7.7 [facility] Comment on above: Performed By: #### L 100.0100, L500.4050, L501.5200 ####[facility] [address] [place], [address] Basophils/100 WBC (Bld) 0.6 % Normal 0-1 [facility] Comment on above: Performed By: #### L 100.0100, L500.4050, L501.5200 ####[facility] [address] [place], [address] Eosinophils/100 WBC (Bld) 2.3 % Normal 0-5 [facility] Comment on above: Performed By: #### L 100.0100, L500.4050, L501.5200 ####[facility] [address] [place], [address] Erythrocyte distribution width (RBC) [Ratio] 15.7 % High 11.6-14.6 [facility] Comment on above: Performed By: #### L 100.0100, L500.4050, L501.5200 ####[facility] [address] [place], [address] Hematocrit (Bld) [Volume fraction] 41.3 % Normal 40-54 [facility] Comment on above: Performed By: #### L 100.0100, L500.4050, L501.5200 ####[facility] [address] [place], [address] Hemoglobin (Bld) [Mass/Vol] 13.8 g/dL Normal 13.0-16.5 [facility] Comment on above: Performed By: #### L 100.0100, L500.4050, L501.5200 ####[facility] [address] [place], [address] IG% 0.200 Normal 0.0-0.9 [facility] Comment on above: Result Comment: IG% - Immature Granulocytes (promyelocytes, myelocytes andmetamyelocytes) > 1% indicates that a LEFT SHIFT is Present. Performed By: #### L 100.0100, L500.4050, L501.5200 ####[facility] [address] [place], [address] Lymphocytes/100 WBC (Bld) 21.6 % Normal 19-41 [facility] Comment on above: Performed By: #### L 100.0100, L500.4050, L501.5200 ####[facility] [address] [place], [address] MCH (RBC) [Entitic mass] 27.1 pg Normal 27.0-32.0 [facility] Comment on above: Performed By: #### L 100.0100, L500.4050, L501.5200 ####[facility] [address] [place], [address] MCHC (RBC) [Mass/Vol] 33.4 g/dL Normal 32-36 [facility] Comment on above: Performed By: #### L 100.0100, L500.4050, L501.5200 ####[facility] [address] [place], [address] MCV (RBC) [Entitic vol] 81.0 fL Normal 80-94 [facility] Comment on above: Performed By: #### L 100.0100, L500.4050, L501.5200 ####[facility] [address] [place], [address] Monocytes/100 WBC (Bld) 9.3 % Normal 0-10 [facility] Comment on above: Performed By: #### L 100.0100, L500.4050, L501.5200 ####[facility] [address] [place], [address] Neutrophils/100 WBC (Bld) 66.0 % Normal 47-70 [facility] Comment on above: Performed By: #### L 100.0100, L500.4050, L501.5200 ####[facility] [address] [place], [address] Nucleated RBC (Bld) [#/Vol] 0 10*3/uL Normal 0-5 [facility] Comment on above: Performed By: #### L 100.0100, L500.4050, L501.5200 ####[facility] [address] [place], [address] Platelet mean volume (Bld) [Entitic vol] 9.4 fL Normal 6.2-12.0 [facility] Comment on above: Performed By: #### L 100.0100, L500.4050, L501.5200 ####[facility] [address] [place], [address] Platelets (Bld) [#/Vol] 190 10*3/uL Normal 150-450 [facility] Comment on above: Performed By: #### L 100.0100, L500.4050, L501.5200 ####[facility] [address] [place], [address] RBC (Bld) [#/Vol] 5.10 10*6/uL Normal 4.6-6.2 [facility] Comment on above: Performed By: #### L 100.0100, L500.4050, L501.5200 ####[facility] [address] [place], [address] RDW SD 46.0 fl High 35.1-43.9 [facility] Comment on above: Performed By: #### L 100.0100, L500.4050, L501.5200 ####[facility] [address] [place], [address] WBC (Bld) [#/Vol] 4.7 10*3/uL Normal 4.4-11.0 [facility] Comment on above: Performed By: #### L 100.0100, L500.4050, L501.5200 ####[facility] [address] [place], [address] Absolute Neut Normal 2.0-7.7 [facility] Comment on above: Result Comment: DUPL ICATED TX PLAN ALREADY IN Performed By: #### L 100.0100, L500.4050 ####[facility] [address] [place], [address] HCT Normal 40-54 [facility] Comment on above: Result Comment: DUPL ICATED TX PLAN ALREADY IN Performed By: #### L 100.0100, L500.4050 ####[facility] [address] [place], [address] HGB Normal 13.0-16.5 [facility] Comment on above: Result Comment: DUPL ICATED TX PLAN ALREADY IN Performed By: #### L 100.0100, L500.4050 ####[facility] [address] [place], [address] MCH Normal 27.0-32.0 [facility] Comment on above: Result Comment: DUPL ICATED TX PLAN ALREADY IN Performed By: #### L 100.0100, L500.4050 ####[facility] [address] [place], [address] MCHC Normal 32-36 [facility] Comment on above: Result Comment: DUPL ICATED TX PLAN ALREADY IN Performed By: #### L 100.0100, L500.4050 ####[facility] [address] [place], [address] MCV Normal 80-94 [facility] Comment on above: Result Comment: DUPL ICATED TX PLAN ALREADY IN Performed By: #### L 100.0100, L500.4050 ####[facility] [address] [place], [address] NEUT% Normal 47-70 [facility] Comment on above: Result Comment: DUPL ICATED TX PLAN ALREADY IN Performed By: #### L 100.0100, L500.4050 ####[facility] [address] [place], [address] PLT Normal 150-450 [facility] Comment on above: Result Comment: DUPL ICATED TX PLAN ALREADY IN Performed By: #### L 100.0100, L500.4050 ####[facility] [address] [place], [address] RBC Normal 4.6-6.2 [facility] Comment on above: Result Comment: DUPL ICATED TX PLAN ALREADY IN Performed By: #### L 100.0100, L500.4050 ####[facility] [address] [place], [address] RDW CV Normal 11.6-14.6 [facility] Comment on above: Result Comment: DUPL ICATED TX PLAN ALREADY IN Performed By: #### L 100.0100, L500.4050 ####[facility] [address] [place], [address] RDW SD Normal 35.1-43.9 [facility] Comment on above: Result Comment: DUPL ICATED TX PLAN ALREADY IN Performed By: #### L 100.0100, L500.4050 ####[facility] [address] [place], [address] WBC Normal 4.4-11.0 [facility] Comment on above: Result Comment: DUPL ICATED TX PLAN ALREADY IN Performed By: #### L 100.0100, L500.4050 ####[facility] [address] [place], [address] Comprehensive Metabolic Prof [facility] 06-24-2024 Albumin [Mass/Vol] 3.9 g/dL Normal 3.4-4.8 [facility] Comment on above: Performed By: #### L 100.0100, L500.4050, L501.5200 ####[facility] [address] [place], [address] Albumin/Globulin [Mass ratio] 1.4 {ratio} Normal 0.9-2.4 [facility] Comment on above: Performed By: #### L 100.0100, L500.4050, L501.5200 ####[facility] [address] [place], [address] ALK PHOS 94 U/L Normal 40-129 [facility] Comment on above: Performed By: #### L 100.0100, L500.4050, L501.5200 ####[facility] [address] [place], [address] ALT [Catalytic activity/Vol] 23 U/L Normal <=46 [facility] Comment on above: Performed By: #### L 100.0100, L500.4050, L501.5200 ####[facility] [address] [place], [address] AST [Catalytic activity/Vol] 27 U/L Normal <=37 [facility] Comment on above: Performed By: #### L 100.0100, L500.4050, L501.5200 ####[facility] [address] [place], [address] Bilirubin [Mass/Vol] 0.39 mg/dL Normal 0.00-1.30 [facility] Comment on above: Performed By: #### L 100.0100, L500.4050, L501.5200 ####[facility] [address] [place], [address] BUN/CRE 16.6 RATIO Normal 10-20 [facility] Comment on above: Performed By: #### L 100.0100, L500.4050, L501.5200 ####[facility] [address] [place], [address] Calcium [Mass/Vol] 9.8 mg/dL Normal 7.6-11.0 [facility] Comment on above: Performed By: #### L 100.0100, L500.4050, L501.5200 ####[facility] [address] [place], [address] Chloride [Moles/Vol] 106 mmol/L Normal 98-108 [facility] Comment on above: Performed By: #### L 100.0100, L500.4050, L501.5200 ####[facility] [address] [place], [address] CO2 [Moles/Vol] 22.1 mmol/L Normal 21.0-32.0 [facility] Comment on above: Performed By: #### L 100.0100, L500.4050, L501.5200 ####[facility] [address] [place], [address] Creatinine [Mass/Vol] 0.97 mg/dL Normal 0.70-1.20 [facility] Comment on above: Performed By: #### L 100.0100, L500.4050, L501.5200 ####[facility] [address] [place], [address] ECRCL 62.52 ml/min Normal 50-250 [facility] Comment on above: Performed By: #### L 100.0100, L500.4050, L501.5200 ####[facility] [address] [place], [address] GAP 12 Normal 5-15 [facility] Comment on above: Performed By: #### L 100.0100, L500.4050, L501.5200 ####[facility] [address] [place], [address] GFR/1.73 sq M.predicted among non-blacks MDRD (S/P/Bld) [Vol rate/Area] 85 mL/min/{1.73_m2} Normal >60 [facility] Comment on above: Result Comment: mL/m in/1.73m2 CKD-EPI Creatinine Equation (2020) Performed By: #### L 100.0100, L500.4050, L501.5200 ####[facility] [address] [place], [address] Globulin (S) [Mass/Vol] 2.7 g/dL Normal 2.2-4.2 [facility] Comment on above: Performed By: #### L 100.0100, L500.4050, L501.5200 ####[facility] [address] [place], [address] Glucose [Mass/Vol] 135 mg/dL High 70-99 [facility] Comment on above: Performed By: #### L 100.0100, L500.4050, L501.5200 ####[facility] [address] [place], [address] Potassium [Moles/Vol] 4.1 mmol/L Normal 3.3-5.1 [facility] Comment on above: Performed By: #### L 100.0100, L500.4050, L501.5200 ####[facility] [address] [place], [address] Sodium [Moles/Vol] 140 mmol/L Normal 133-145 [facility] Comment on above: Performed By: #### L 100.0100, L500.4050, L501.5200 ####[facility] [address] [place], [address] T PROT 6.6 g/dL Normal 5.9-8.4 [facility] Comment on above: Performed By: #### L 100.0100, L500.4050, L501.5200 ####[facility] [address] [place], [address] Urea nitrogen [Mass/Vol] 16 mg/dL Normal 4-19 [facility] Comment on above: Performed By: #### L 100.0100, L500.4050, L501.5200 ####[facility] [address] [place], [address] ALB Normal 3.4-4.8 [facility] Comment on above: Result Comment: DUPL ICATED TX PLAN ALREADY IN Performed By: #### L 100.0100, L500.4050 ####[facility] [address] [place], [address] ALK PHOS Normal 40-129 [facility] Comment on above: Result Comment: DUPL ICATED TX PLAN ALREADY IN Performed By: #### L 100.0100, L500.4050 ####[facility] [address] [place], [address] ALT Normal <=46 [facility] Comment on above: Result Comment: DUPL ICATED TX PLAN ALREADY IN Performed By: #### L 100.0100, L500.4050 ####[facility] [address] [place], [address] AST Normal <=37 [facility] Comment on above: Result Comment: DUPL ICATED TX PLAN ALREADY IN Performed By: #### L 100.0100, L500.4050 ####[facility] [address] [place], [address] BUN Normal 4-19 [facility] Comment on above: Result Comment: DUPL ICATED TX PLAN ALREADY IN Performed By: #### L 100.0100, L500.4050 ####[facility] [address] [place], [address] BUN/CRE Normal 10-20 [facility] Comment on above: Result Comment: DUPL ICATED TX PLAN ALREADY IN Performed By: #### L 100.0100, L500.4050 ####[facility] [address] [place], [address] Calcium Normal 7.6-11.0 [facility] Comment on above: Result Comment: DUPL ICATED TX PLAN ALREADY IN Performed By: #### L 100.0100, L500.4050 ####[facility] [address] [place], [address] CL Normal 98-108 [facility] Comment on above: Result Comment: DUPL ICATED TX PLAN ALREADY IN Performed By: #### L 100.0100, L500.4050 ####[facility] [address] [place], [address] CO2 Normal 21.0-32.0 [facility] Comment on above: Result Comment: DUPL ICATED TX PLAN ALREADY IN Performed By: #### L 100.0100, L500.4050 ####[facility] [address] [place], [address] CREAT,SERUM Normal 0.70-1.20 [facility] Comment on above: Result Comment: DUPL ICATED TX PLAN ALREADY IN Performed By: #### L 100.0100, L500.4050 ####[facility] [address] [place], [address] eGFR Normal >60 [facility] Comment on above: Result Comment: DUPL ICATED TX PLAN ALREADY IN Performed By: #### L 100.0100, L500.4050 ####[facility] [address] [place], [address] GAP Normal 5-15 [facility] Comment on above: Result Comment: DUPL ICATED TX PLAN ALREADY IN Performed By: #### L 100.0100, L500.4050 ####[facility] [address] [place], [address] GLU Normal 70-99 [facility] Comment on above: Result Comment: DUPL ICATED TX PLAN ALREADY IN Performed By: #### L 100.0100, L500.4050 ####[facility] [address] [place], [address] Potassium Normal 3.3-5.1 [facility] Comment on above: Result Comment: DUPL ICATED TX PLAN ALREADY IN Performed By: #### L 100.0100, L500.4050 ####[facility] [address] [place], [address] T BILI Normal 0.00-1.30 [facility] Comment on above: Result Comment: DUPL ICATED TX PLAN ALREADY IN Performed By: #### L 100.0100, L500.4050 ####[facility] [address] [place], [address] T PROT Normal 5.9-8.4 [facility] Comment on above: Result Comment: DUPL ICATED TX PLAN ALREADY IN Performed By: #### L 100.0100, L500.4050 ####[facility] [address] [place], [address] Comprehensive Metabolic Profil Normal 133-145 [facility] Comment on above: Result Comment: DUPL ICATED TX PLAN ALREADY IN Performed By: #### L 100.0100, L500.4050 ####[facility] [address] [place], [address] Cytology report Cyto stain D oc (Body fld)Ordered By: Donny Martinez on 06-24-2024 Miscellaneous Cytology SEE PATHOLOGY REPORT [facility] Comment on above: Specimen submitted t o Anatomical Pathology Department for testing. Cytology, Body Fluid / CSFon 06-24-2024 CYTOLOGY,BF/CSF SEE PATHOLOGY REPORT Normal [facility] Comment on above: Order Comment: URINE IS BEING SENT TO LABReason for Exam: URINEComments: URINEURINE Result Comment: Spec imen submitted to Anatomical Pathology Department fortesting. Performed By: #### L 350.1000 ####[facility] [address] [place], [address] Magnesiumon 06-24-2024 Magnesium [Mass/Vol] 2.3 mg/dL High 1.5-2.2 [facility] Comment on above: Performed By: #### L 100.0100, L500.4050, L501.5200 ####[facility] [address] [place], [address] Oncology Visit Reporton 06-15 Oncology Visit Report Normal [facility] Pap Stain (control)on 2024 Pap Stain (control) Normal [facility] Comment on above: Performed By: #### P PAPS ####[facility] [address] [place], [address] CBC W/Diff, Automatedon Absolute Neut Normal 2.0-7.7 [facility] Comment on above: Result Comment: Canc elled via OM: Physician Authorized Performed By: #### L 100.0100, L500.4050 ####[facility] [address] [place], [address] HCT Normal 40-54 [facility] Comment on above: Result Comment: Canc elled via OM: Physician Authorized Performed By: #### L 100.0100, L500.4050 ####[facility] [address] [place], [address] HGB Normal 13.0-16.5 [facility] Comment on above: Result Comment: Canc elled via OM: Physician Authorized Performed By: #### L 100.0100, L500.4050 ####[facility] [address] [place], [address] MCH Normal 27.0-32.0 [facility] Comment on above: Result Comment: Canc elled via OM: Physician Authorized Performed By: #### L 100.0100, L500.4050 ####[facility] [address] [place], [address] MCHC Normal 32-36 [facility] Comment on above: Result Comment: Canc elled via OM: Physician Authorized Performed By: #### L 100.0100, L500.4050 ####[facility] [address] [place], [address] MCV Normal 80-94 [facility] Comment on above: Result Comment: Canc elled via OM: Physician Authorized Performed By: #### L 100.0100, L500.4050 ####[facility] [address] [place], [address] NEUT% Normal 47-70 [facility] Comment on above: Result Comment: Canc elled via OM: Physician Authorized Performed By: #### L 100.0100, L500.4050 ####[facility] [address] [place], [address] PLT Normal 150-450 [facility] Comment on above: Result Comment: Canc elled via OM: Physician Authorized Performed By: #### L 100.0100, L500.4050 ####[facility] [address] [place], [address] RBC Normal 4.6-6.2 [facility] Comment on above: Result Comment: Canc elled via OM: Physician Authorized Performed By: #### L 100.0100, L500.4050 ####[facility] [address] [place], [address] RDW CV Normal 11.6-14.6 [facility] Comment on above: Result Comment: Canc elled via OM: Physician Authorized Performed By: #### L 100.0100, L500.4050 ####[facility] [address] [place], [address] RDW SD Normal 35.1-43.9 [facility] Comment on above: Result Comment: Canc elled via OM: Physician Authorized Performed By: #### L 100.0100, L500.4050 ####[facility] [address] [place], [address] WBC Normal 4.4-11.0 [facility] Comment on above: Result Comment: Canc elled via OM: Physician Authorized Performed By: #### L 100.0100, L500.4050 ####[facility] [address] [place], [address] Comprehensive Metabolic Prof ilkrystian 06-19-2024 ALB Normal 3.4-4.8 [facility] Comment on above: Result Comment: Canc elled via OM: Physician Authorized Performed By: #### L 100.0100, L500.4050 ####[facility] [address] [place], [address] ALK PHOS Normal 40-129 [facility] Comment on above: Result Comment: Canc elled via OM: Physician Authorized Performed By: #### L 100.0100, L500.4050 ####[facility] [address] [place], [address] ALT Normal <=46 [facility] Comment on above: Result Comment: Canc elled via OM: Physician Authorized Performed By: #### L 100.0100, L500.4050 ####[facility] [address] [place], [address] AST Normal <=37 [facility] Comment on above: Result Comment: Canc elled via OM: Physician Authorized Performed By: #### L 100.0100, L500.4050 ####[facility] [address] [place], [address] BUN Normal 4-19 [facility] Comment on above: Result Comment: Canc elled via OM: Physician Authorized Performed By: #### L 100.0100, L500.4050 ####[facility] [address] [place], [address] BUN/CRE Normal 10-20 [facility] Comment on above: Result Comment: Canc elled via OM: Physician Authorized Performed By: #### L 100.0100, L500.4050 ####[facility] [address] [place], [address] Calcium Normal 7.6-11.0 [facility] Comment on above: Result Comment: Canc elled via OM: Physician Authorized Performed By: #### L 100.0100, L500.4050 ####[facility] [address] [place], [address] CL Normal 98-108 [facility] Comment on above: Result Comment: Canc elled via OM: Physician Authorized Performed By: #### L 100.0100, L500.4050 ####[facility] [address] [place], [address] CO2 Normal 21.0-32.0 [facility] Comment on above: Result Comment: Canc elled via OM: Physician Authorized Performed By: #### L 100.0100, L500.4050 ####[facility] [address] [place], [address] CREAT,SERUM Normal 0.70-1.20 [facility] Comment on above: Result Comment: Canc elled via OM: Physician Authorized Performed By: #### L 100.0100, L500.4050 ####[facility] [address] [place], [address] eGFR Normal >60 [facility] Comment on above: Result Comment: Canc elled via OM: Physician Authorized Performed By: #### L 100.0100, L500.4050 ####[facility] [address] [place], [address] GAP Normal 5-15 [facility] Comment on above: Result Comment: Canc elled via OM: Physician Authorized Performed By: #### L 100.0100, L500.4050 ####[facility] [address] [place], [address] GLU Normal 70-99 [facility] Comment on above: Result Comment: Canc elled via OM: Physician Authorized Performed By: #### L 100.0100, L500.4050 ####[facility] [address] [place], [address] Potassium Normal 3.3-5.1 [facility] Comment on above: Result Comment: Canc elled via OM: Physician Authorized Performed By: #### L 100.0100, L500.4050 ####[facility] [address] [place], [address] T BILI Normal 0.00-1.30 [facility] Comment on above: Result Comment: Canc elled via OM: Physician Authorized Performed By: #### L 100.0100, L500.4050 ####[facility] [address] [place], [address] T PROT Normal 5.9-8.4 [facility] Comment on above: Result Comment: Canc elled via OM: Physician Authorized Performed By: #### L 100.0100, L500.4050 ####[facility] [address] [place], [address] Comprehensive Metabolic Profil Normal 133-145 [facility] Comment on above: Result Comment: Canc elled via OM: Physician Authorized Performed By: #### L 100.0100, L500.4050 ####[facility] [address] [place], [address] Oncology Visit Reporton 03-0 Oncology Visit Report Normal [facility] CREATININE FINGERSTICKon CREATININE WB < 1.0 Normal 0.70-1.30 [facility] Comment on above: Performed By: #### L 9100.0200 ####[facility] [address] [place], [address] EGFR WB > 60.0000 Normal >60 [facility] Comment on above: Performed By: #### L 9100.0200 ####[facility] [address] [place], [address] Creatinine measurement at dsideOrdered By: Donny Martinez on 06-17-2024 Bedside Creatinine < 1.0 mg/dL 0.70-1.30 [facility] EGFROrdered By: Donny Martinez on 06-17-2024 Bedside Estimated GFR (eGFR) > 60.0000 mL/min >60 [facility] GFR/1.73 sq M.predicted among non-blacks MDRD (S/P/Bld) [Vol rate/Area] mL/min/{1.73_m2} >60 [facility] CXR for Line Placementon CXR for Line Placement Normal [facility] Discharge Instructionon 05-19 Discharge Instruction Normal [facility] MR/POSTOP.ANEon 06-14-2024 MR/POSTOP.ANE Normal [facility] MR/IDVOAHSP5fe 06-14-2024 MR/POSTOPAN2 [facility] Operative Reporton Operative Report [facility] CNOVon 06-12-2024 CNOV Office Visit (UROLMN) ---- BETHANY ROJAS ([id number]) 1955 [facility] Date Time Provider Department 06/12/24 ALVARO MENDIETA UROBALJINDER During your visit today, we recorded the following information about you: Alvaro Mendieta, Research Coordinator 06/12/2024 8:33 AM Signed Patient was approached about his interest in IRB 15-1926, patient declined. 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 Problem List As Of Date: 06/12/2024 (None) Encounter Status:Closed by ALVARO MENDIETA on 06/12/24 [facility] CNOVon 06-11-2024 CNOV Office Visit (UROLMN) ---- BETHANY ROJAS ([id number]) 1955 [facility] Date Time Provider Department 06/11/24 11:00 AM ROEL BARRIOS During your visit today, we recorded the following information about you: Pulse Blood pressure Weight Height 69/minute 130/78 65.7 kg 1.651 m Roel Barrios MD 06/12/2024 10:21 AM Signed ##New Invasive Bladder Cancer Patient## Chief Complaint: Invasive Bladder Cancer History of Present Illness: Bethany Rojas is a very pleasant 69 year old male who presents with a history of invasive bladder cancer. S/p TURBT 01/31/24, 03/03/2024. 01/31/2024- TURBT path consistent with T1 high grade 03/13/2024- TURBT path consistent with T2 04/11/2024- CT chest/abd/pelvis noting no metastatic disease 04/23/2024 PET demonstrated increased uptake in the pelvis with a soft tissue mass consistent with viable neoplasm. The carnal and subcarnal mediastinum and thoracis per hilum are borderline for viable neoplasm 05/10/2024: Patient completed bronchoscopy and EBUS. Biopsy of mediastinal lymph noses were negative for malignant cells Outside Surgical Pathology (05/31/24) Outside Surgical Pathology (03/15/24) Bladder Cancer: - Diagnosed with bladder cancer after an ultrasound revealed a tumor obstructing drainage. - Initial pathology report in January indicated non-invasive T1 tumor; subsequent report in February showed muscle-invasive tumor. - Underwent two TURBT procedures; first urologist believed 95% of the tumor was removed. - Considering treatment options, including surgery and radiation. - Concerns about the maintenance of a urinary diversion bag. - Recent CT scan showed shadows on lungs; PET scan highlighted areas, but biopsy by communication center coordinator showed no cancer. - Conflicting opinions from oncologists regarding lung findings. - Recent blood test (Signatera) showed positive for cancer DNA; oncologist dismissed the test as worthless. 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 - Denies smoking history. 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 - Describes himself as very active, with concerns about the impact of treatment on lifestyle. Past Medical History: No past medical history on file. Past Surgical History: No past surgical history on file. Problem List: There is no problem list on file for this patient. Medications No current outpatient medications on file prior to visit. No current facility-administer ed medications on file prior to visit. Family History: No family history on file. Social History: Allergies: Patient has no known allergies. Physical Exam: Patient is a 69 year old male Constitutional: Vitals: Blood pressure 130/78, pulse 69, height 165.1 cm (5' 5), weight 65.7 kg (144 lb 13.5 oz). General Appearance Adult: Alert, no acute distress, oriented Lungs/Repiratory: no respiratory distress, or pursed lip breathing Psych: affect and mood normal Abdomen: Estimated body mass index is 24.1 kg/m? as calculated from the following: Height as of this encounter: 165.1 cm (5' 5). Weight as of this encounter: 65.7 kg (144 lb 13.5 oz). Labs and Pathology: Outside Surgical Pathology (05/31/24) TURBT 02/02/2024 TURBT 03/15/2024 Imaging: PET CT (04/23/24) Outside and Past Medical records: Assessment: High grade invasive bladder cancer. S/p TURBT 02/02/24 and 03/15/24. Papillary urothelial carcinoma, invasive. High grade. T2NxMx. Biopsy of mediastinal lymph noses were negative for malignant cells Plan: Pt is leaning towards radiation and would like to have it done locally. Pt was recommended to follow up as needed. We had a long discussion about muscle invasive bladder cancer. We discussed the fact that once urothelial cancer invades the bladder muscle layer it can potentially invade the blood vessels and lymphatic channels and spread throughout the body. Once urothelial cancer spreads to distant organs, the opportunity for cure is rare, so we have the best shot for cure with aggressive surgical intervention. We discussed radical cystectomy and the potential complications associated with it, including a 2-3% perioperative mortality risk, and the risk of complications is about 60%. We also discussed about 20-30% of patients need to go to a rehab facility after surgery and about 25% return to the hospital for complications. We also discussed the use of radiation combined with chemotherapy. This approach is appealing in that the bladder can potentially stay in place. However to be eligible, past studies have suggested the tumor needs to be unifocal, under ~5 cms, not associated with CIS nor hydronephrosis. Though survival rates are comparable to surgery in these select patients, cancer recurrence rates are much higher, cl (more content not included)... Normal [facility] Surgery Visit Reporton 06-10 Surgery Visit Report Normal [facility] Radiation Oncology Visiton 0 05-24-2024 Radiation Oncology Visit Normal [facility] Oncology Visit Reporton Oncology Visit Report Normal [facility] Bronchoscopy Reporton 2024 Bronchoscopy Report Normal [facility] MR/POSTOP.ANEon 05-10-2024 MR/POSTOP.ANE [facility] MR/[id number] 05-10-2024 MR/POSTOPAN2 [facility] Special Stain Group IIon Special Stain Group II Normal [facility] Comment on above: Performed By: #### P SSII ####[facility] [address] [place], [place], [address] MR/PAT.ANEon 05-07-2024 MR/PAT.ANE Normal [facility] International normalized rat io (INR) calculationOrdered By: Young Samuels on 04-30-2024 INR Coag (Bld) [Relative time] 0.9 {INR} [facility] PLATELET COUNTon 04-30-2024 Platelets (Bld) [#/Vol] 226 10*3/uL Normal 150-450 [facility] Comment on above: Performed By: #### L 300.3900, L100.0625 ####[facility] [address] [place], [place], [address] Platelet countOrdered By: Gómez on 04-30-2024 Platelets (Bld) [#/Vol] 226 10*3/uL 150-450 [facility] Prothrombin Time w/INRon INR Coag (PPP) [Relative time] 0.9 {INR} Normal [facility] Comment on above: Performed By: #### L 300.3900, L100.0625 ####[facility] [address] [place], [address] PT Coag (PPP) [Time] 12.6 s Normal 11.7-14.9 [facility] Comment on above: Performed By: #### L 300.3900, L100.0625 ####[facility] [address] [place], [address] Prothrombin timeOrdered By: Young Samuels on 04-30-2024 PT Coag (PPP) [Time] 12.6 s 11.7-14.9 [facility] Pulmonary Visit Reporton Pulmonary Visit Report Normal [facility] Oncology Visit Reporton Oncology Visit Report Normal [facility] PET/CT Tumor Base -Thigh Ini ton 04-23-2024 PET/CT Tumor Base -Thigh Init Normal [facility] Oncology Visit Reporton 03-19 Oncology Visit Report Normal [facility] CT Chest, Abd, Pel w/Contras ton 04-11-2024 CT Chest, Abd, Pel w/Contrast Normal [facility] CBC W/Diff, Automatedon 03-17 Absolute Lymph 1.10 X10 3/uL Normal 0.83-4.51 [facility] Comment on above: Performed By: #### L 100.0100, L504.2610, L500.4050 ####[facility] [address] [place], [address] Absolute Neut 3.7 X10 3/uL Normal 2.0-7.7 [facility] Comment on above: Performed By: #### L 100.0100, L504.2610, L500.4050 ####[facility] [address] [place], [address] Basophils/100 WBC (Bld) 0.7 % Normal 0-1 [facility] Comment on above: Performed By: #### L 100.0100, L504.2610, L500.4050 ####[facility] [address] [place], [address] Eosinophils/100 WBC (Bld) 0.9 % Normal 0-5 [facility] Comment on above: Performed By: #### L 100.0100, L504.2610, L500.4050 ####[facility] [address] [place], [address] Erythrocyte distribution width (RBC) [Ratio] 13.4 % Normal 11.6-14.6 [facility] Comment on above: Performed By: #### L 100.0100, L504.2610, L500.4050 ####[facility] [address] [place], [address] Hematocrit (Bld) [Volume fraction] 37.5 % Low 40-54 [facility] Comment on above: Performed By: #### L 100.0100, L504.2610, L500.4050 ####[facility] [address] [place], [address] Hemoglobin (Bld) [Mass/Vol] 12.5 g/dL Low 13.0-16.5 [facility] Comment on above: Performed By: #### L 100.0100, L504.2610, L500.4050 ####[facility] [address] [place], [address] IG% 0.200 Normal 0.0-0.9 [facility] Comment on above: Result Comment: IG% - Immature Granulocytes (promyelocytes, myelocytes andmetamyelocytes) > 1% indicates that a LEFT SHIFT is Present. Performed By: #### L 100.0100, L504.2610, L500.4050 ####[facility] [address] [place], [address] Lymphocytes/100 WBC (Bld) 20.1 % Normal 19-41 [facility] Comment on above: Performed By: #### L 100.0100, L504.2610, L500.4050 ####[facility] [address] [place], [address] MCH (RBC) [Entitic mass] 28.1 pg Normal 27.0-32.0 [facility] Comment on above: Performed By: #### L 100.0100, L504.2610, L500.4050 ####[facility] [address] [place], [address] MCHC (RBC) [Mass/Vol] 33.3 g/dL Normal 32-36 [facility] Comment on above: Performed By: #### L 100.0100, L504.2610, L500.4050 ####[facility] [address] [place], [address] MCV (RBC) [Entitic vol] 84.3 fL Normal 80-94 [facility] Comment on above: Performed By: #### L 100.0100, L504.2610, L500.4050 ####[facility] [address] [place], [address] Monocytes/100 WBC (Bld) 9.9 % Normal 0-10 [facility] Comment on above: Performed By: #### L 100.0100, L504.2610, L500.4050 ####[facility] [address] [place], [address] Neutrophils/100 WBC (Bld) 68.2 % Normal 47-70 [facility] Comment on above: Performed By: #### L 100.0100, L504.2610, L500.4050 ####[facility] [address] [place], [address] Nucleated RBC (Bld) [#/Vol] 0 10*3/uL Normal 0-5 [facility] Comment on above: Performed By: #### L 100.0100, L504.2610, L500.4050 ####[facility] [address] [place], [address] Platelet mean volume (Bld) [Entitic vol] 9.3 fL Normal 6.2-12.0 [facility] Comment on above: Performed By: #### L 100.0100, L504.2610, L500.4050 ####[facility] [address] [place], [address] Platelets (Bld) [#/Vol] 275 10*3/uL Normal 150-450 [facility] Comment on above: Performed By: #### L 100.0100, L504.2610, L500.4050 ####[facility] [address] [place], [address] RBC (Bld) [#/Vol] 4.45 10*6/uL Low 4.6-6.2 [facility] Comment on above: Performed By: #### L 100.0100, L504.2610, L500.4050 ####[facility] [address] [place], [address] RDW SD 41.1 fl Normal 35.1-43.9 [facility] Comment on above: Performed By: #### L 100.0100, L504.2610, L500.4050 ####[facility] [address] [place], [address] WBC (Bld) [#/Vol] 5.5 10*3/uL Normal 4.4-11.0 [facility] Comment on above: Performed By: #### L 100.0100, L504.2610, L500.4050 ####[facility] [address] [place], [address] Comprehensive Metabolic Prof ilon 04-04-2024 Albumin [Mass/Vol] 4.2 g/dL Normal 3.2-5.0 [facility] Comment on above: Order Comment: 1 Performed By: #### L 100.0100, L504.2610, L500.4050 ####[facility] [address] [place], [address] Albumin/Globulin [Mass ratio] 1.3 {ratio} Normal 0.9-2.4 [facility] Comment on above: Order Comment: 1 Performed By: #### L 100.0100, L504.2610, L500.4050 ####[facility] [address] [place], [address] ALK P 104 U/L Normal 45-117 [facility] Comment on above: Order Comment: 1 Performed By: #### L 100.0100, L504.2610, L500.4050 ####[facility] [address] [place], [address] ALT [Catalytic activity/Vol] 40 U/L Normal 16-61 [facility] Comment on above: Order Comment: 1 Performed By: #### L 100.0100, L504.2610, L500.4050 ####[facility] [address] [place], [address] AST [Catalytic activity/Vol] 23 U/L Normal 15-37 [facility] Comment on above: Order Comment: 1 Performed By: #### L 100.0100, L504.2610, L500.4050 ####[facility] [address] [place], [address] Bilirubin [Mass/Vol] 0.40 mg/dL Normal 0.20-1.00 [facility] Comment on above: Order Comment: 1 Result Comment: For patients on eltrombopag therapy, use of Dimension [place] TBIL is not recommended. Performed By: #### L 100.0100, L504.2610, L500.4050 ####[facility] [address] [place], [address] BUN/CRE 14.1 RATIO Normal 10-20 [facility] Comment on above: Order Comment: 1 Performed By: #### L 100.0100, L504.2610, L500.4050 ####[facility] [address] [place], [address] CA,Total 9.8 mg/dL Normal 8.5-10.1 [facility] Comment on above: Order Comment: 1 Performed By: #### L 100.0100, L504.2610, L500.4050 ####[facility] [address] [place], [address] Chloride [Moles/Vol] 109 mmol/L High 98-107 [facility] Comment on above: Order Comment: 1 Performed By: #### L 100.0100, L504.2610, L500.4050 ####[facility] [address] [place], [address] CO2 [Moles/Vol] 27.0 mmol/L Normal 21.0-32.0 [facility] Comment on above: Order Comment: 1 Performed By: #### L 100.0100, L504.2610, L500.4050 ####[facility] [address] [place], [address] Creatinine [Mass/Vol] 0.99 mg/dL Normal 0.70-1.30 [facility] Comment on above: Order Comment: 1 Result Comment: The validity of the calculated GFR GFRAA in patients over70 years has not been determined. Clinical correlation isessential. Performed By: #### L 100.0100, L504.2610, L500.4050 ####[facility] [address] [place], [address] EST GFR - AA 96 mL/min Normal >60 [facility] Comment on above: Order Comment: 1 Result Comment: Afri can Slovak GFR Calc Performed By: #### L 100.0100, L504.2610, L500.4050 ####[facility] [address] [place], [address] GAP 5 Normal 5-15 [facility] Comment on above: Order Comment: 1 Performed By: #### L 100.0100, L504.2610, L500.4050 ####[facility] [address] [place], [address] GFR/1.73 sq M.predicted among non-blacks MDRD (S/P/Bld) [Vol rate/Area] 80 mL/min/{1.73_m2} Normal >60 [facility] Comment on above: Order Comment: 1 Result Comment: Non- GFR Calc Performed By: #### L 100.0100, L504.2610, L500.4050 ####[facility] [address] [place], [address] Globulin (S) [Mass/Vol] 3.2 g/dL Normal 2.2-4.2 [facility] Comment on above: Order Comment: 1 Performed By: #### L 100.0100, L504.2610, L500.4050 ####[facility] [address] [place], [address] Glucose [Mass/Vol] 85 mg/dL Normal 74-106 [facility] Comment on above: Order Comment: 1 Performed By: #### L 100.0100, L504.2610, L500.4050 ####[facility] [address] [place], [address] Potassium [Moles/Vol] 3.6 mmol/L Normal 3.5-5.1 [facility] Comment on above: Order Comment: 1 Performed By: #### L 100.0100, L504.2610, L500.4050 ####[facility] [address] [place], [address] Sodium [Moles/Vol] 141 mmol/L Normal 136-145 [facility] Comment on above: Order Comment: 1 Performed By: #### L 100.0100, L504.2610, L500.4050 ####[facility] [address] [place], [address] T PROT 7.4 g/dL Normal 6.4-8.2 [facility] Comment on above: Order Comment: 1 Performed By: #### L 100.0100, L504.2610, L500.4050 ####[facility] [address] [place], [address] Urea nitrogen [Mass/Vol] 14 mg/dL Normal 7-18 [facility] Comment on above: Order Comment: 1 Performed By: #### L 100.0100, L504.2610, L500.4050 ####[facility] [address] [place], [address] Estimated glomerular filtrat ion rate (GFR) AmericanOrdered By: Donny Martinez on 04-04-2024 Estimated GFR (MDRD) Amer 96 mL/min >60 [facility] Comment on above: GFR Calc LDHon 04-04-2024 LDH 230 U/L Normal 87-241 [facility] Comment on above: Order Comment: 1 Performed By: #### L 100.0100, L504.2610, L500.4050 ####[facility] [address] [place], [address] Lactate dehydrogenase (LDH) measurementOrdered By: Donny Martinez on 04-04-2024 LDH [Catalytic activity/Vol] 230 U/L 87-241 [facility] Miscellaneous procedureOrder ed By: Donny Martinez on 04-04-2024 Miscellaneous Test Comment SEE SCANNED REPORT [facility] NATERAon 04-04-2024 NATURA SEE SCANNED REPORT Normal [facility] Comment on above: Performed By: #### L 900.0098 ####[facility] [address] [place], [address] Oncology Visit Reporton 03-17 Oncology Visit Report Normal [facility] Discharge Instructionon 02-16 Discharge Instruction Normal [facility] MR/POSTOP.ANEon 03-13-2024 MR/POSTOP.ANE Normal [facility] MR/[id number] 03-13-2024 MR/POSTOPAN2 Normal [facility] Operative Reporton Operative Report Normal [facility] Surgery Specimen Level Von 1 05-13-2023 Surgery Specimen Level V Normal [facility] Comment on above: Performed By: #### P SUV ####[facility] [address] [place], [address] Basic Metabolic Profile (BMP )on 02-01-2024 BUN/CRE 26.3 RATIO High 10-20 [facility] Comment on above: Performed By: #### L 500.2500, L100.0500 ####[facility] [address] [place], [address] CA,Total 8.5 mg/dL Normal 8.5-10.1 [facility] Comment on above: Performed By: #### L 500.2500, L100.0500 ####[facility] [address] [place], [address] Chloride [Moles/Vol] 111 mmol/L High 98-107 [facility] Comment on above: Performed By: #### L 500.2500, L100.0500 ####[facility] [address] [place], [address] CO2 [Moles/Vol] 23.0 mmol/L Normal 21.0-32.0 [facility] Comment on above: Performed By: #### L 500.2500, L100.0500 ####[facility] [address] [place], [address] Creatinine [Mass/Vol] 0.95 mg/dL Normal 0.70-1.30 [facility] Comment on above: Result Comment: The validity of the calculated GFR GFRAA in patients over70 years has not been determined. Clinical correlation isessential. Performed By: #### L 500.2500, L100.0500 ####[facility] [address] [place], [address] ECRCL 64.74 ml/min Normal [facility] Comment on above: Performed By: #### L 500.2500, L100.0500 ####[facility] [address] [place], [address] EST GFR - AA 101 mL/min Normal >60 [facility] Comment on above: Result Comment: Afri can Slovak GFR Calc Performed By: #### L 500.2500, L100.0500 ####[facility] [address] [place], [address] GAP 6 Normal 5-15 [facility] Comment on above: Performed By: #### L 500.2500, L100.0500 ####[facility] [address] [place], [address] GFR/1.73 sq M.predicted among non-blacks MDRD (S/P/Bld) [Vol rate/Area] 83 mL/min/{1.73_m2} Normal >60 [facility] Comment on above: Result Comment: Non- GFR Calc Performed By: #### L 500.2500, L100.0500 ####[facility] [address] [place], [address] Glucose [Mass/Vol] 122 mg/dL High 74-106 [facility] Comment on above: Result Comment: Fast ing Glucose result from 100 to 125 mg/dLsuggests IMPAIRED HOMEOSTASIS per A.D.A. criteria. Performed By: #### L 500.2500, L100.0500 ####[facility] [address] [place], [address] Potassium [Moles/Vol] 4.2 mmol/L Normal 3.5-5.1 [facility] Comment on above: Performed By: #### L 500.2500, L100.0500 ####[facility] [address] [place], [address] Sodium [Moles/Vol] 140 mmol/L Normal 136-145 [facility] Comment on above: Performed By: #### L 500.2500, L100.0500 ####[facility] [address] [place], [address] Urea nitrogen [Mass/Vol] 25 mg/dL High 7-18 [facility] Comment on above: Performed By: #### L 500.2500, L100.0500 ####[facility] [address] [place], [address] CBC-Complete Blood Cnt No Di ffon 02-01-2024 Erythrocyte distribution width (RBC) [Ratio] 13.1 % Normal 11.6-14.6 [facility] Comment on above: Performed By: #### L 500.2500, L100.0500 ####[facility] [address] [place], [address] Hematocrit (Bld) [Volume fraction] 31.7 % Low 40-54 [facility] Comment on above: Performed By: #### L 500.2500, L100.0500 ####[facility] [address] [place], [address] Hemoglobin (Bld) [Mass/Vol] 11.2 g/dL Low 13.0-16.5 [facility] Comment on above: Performed By: #### L 500.2500, L100.0500 ####[facility] [address] [place], [address] MCH (RBC) [Entitic mass] 31.5 pg Normal 27.0-32.0 [facility] Comment on above: Performed By: #### L 500.2500, L100.0500 ####[facility] [address] [place], [address] MCHC (RBC) [Mass/Vol] 35.3 g/dL Normal 32-36 [facility] Comment on above: Performed By: #### L 500.2500, L100.0500 ####[facility] [address] [place], [address] MCV (RBC) [Entitic vol] 89.3 fL Normal 80-94 [facility] Comment on above: Performed By: #### L 500.2500, L100.0500 ####[facility] [address] [place], [address] Platelet mean volume (Bld) [Entitic vol] 9.6 fL Normal 6.2-12.0 [facility] Comment on above: Performed By: #### L 500.2500, L100.0500 ####[facility] [address] [place], [address] Platelets (Bld) [#/Vol] 215 10*3/uL Normal 150-450 [facility] Comment on above: Performed By: #### L 500.2500, L100.0500 ####[facility] [address] [place], [address] RBC (Bld) [#/Vol] 3.55 10*6/uL Low 4.6-6.2 [facility] Comment on above: Performed By: #### L 500.2500, L100.0500 ####[facility] [address] [place], [address] RDW SD 43.1 fl Normal 35.1-43.9 [facility] Comment on above: Performed By: #### L 500.2500, L100.0500 ####[facility] [address] [place], [address] WBC (Bld) [#/Vol] 11.8 10*3/uL High 4.4-11.0 [facility] Comment on above: Performed By: #### L 500.2500, L100.0500 ####[facility] [address] [place], [address] MR/[id number] 02-01-2024 MR/POSTOPAN2 Normal [facility] 12 Lead EKGon 01-31-2024 12 Lead EKG Normal [facility] Basic Metabolic Profile (BMP )on 01-31-2024 BUN/CRE 18.1 RATIO Normal - [facility] Comment on above: Order Comment: To be done in PACU Performed By: #### L 100.0500, L500.2500 ####[facility] [address] [place], [address] CA,Total 8.5 mg/dL Normal 8.5-10.1 [facility] Comment on above: Order Comment: To be done in PACU Performed By: #### L 100.0500, L500.2500 ####[facility] [address] [place], [address] Chloride [Moles/Vol] 111 mmol/L High 98-107 [facility] Comment on above: Order Comment: To be done in PACU Performed By: #### L 100.0500, L500.2500 ####[facility] [address] [place], [address] CO2 [Moles/Vol] 24.0 mmol/L Normal 21.0-32.0 [facility] Comment on above: Order Comment: To be done in PACU Performed By: #### L 100.0500, L500.2500 ####[facility] [address] [place], [address] Creatinine [Mass/Vol] 1.05 mg/dL Normal 0.70-1.30 [facility] Comment on above: Order Comment: To be done in PACU Result Comment: The validity of the calculated GFR GFRAA in patients over70 years has not been determined. Clinical correlation isessential. Performed By: #### L 100.0500, L500.2500 ####[facility] [address] [place], [address] ECRCL 58.57 ml/min Normal [facility] Comment on above: Order Comment: To be done in PACU Performed By: #### L 100.0500, L500.2500 ####[facility] [address] [place], [address] EST GFR - AA 90 mL/min Normal >60 [facility] Comment on above: Order Comment: To be done in PACU Result Comment: Afri can Slovak GFR Calc Performed By: #### L 100.0500, L500.2500 ####[facility] [address] [place], [address] GAP 6 Normal 5-15 [facility] Comment on above: Order Comment: To be done in PACU Performed By: #### L 100.0500, L500.2500 ####[facility] [address] [place], [address] GFR/1.73 sq M.predicted among non-blacks MDRD (S/P/Bld) [Vol rate/Area] 75 mL/min/{1.73_m2} Normal >60 [facility] Comment on above: Order Comment: To be done in PACU Result Comment: Non- GFR Calc Performed By: #### L 100.0500, L500.2500 ####[facility] [address] [place], [address] Glucose [Mass/Vol] 136 mg/dL High 74-106 [facility] Comment on above: Order Comment: To be done in PACU Result Comment: Fast ing Glucose result greater than or equal to 126 mg/dLsuggests DIABETES MELLITUS per A.D.A. criteria. Performed By: #### L 100.0500, L500.2500 ####[facility] [address] [place], [address] Potassium [Moles/Vol] 3.7 mmol/L Normal 3.5-5.1 [facility] Comment on above: Order Comment: To be done in PACU Performed By: #### L 100.0500, L500.2500 ####[facility] [address] [place], [address] Sodium [Moles/Vol] 141 mmol/L Normal 136-145 [facility] Comment on above: Order Comment: To be done in PACU Performed By: #### L 100.0500, L500.2500 ####[facility] [address] [place], [address] Urea nitrogen [Mass/Vol] 19 mg/dL High 7-18 [facility] Comment on above: Order Comment: To be done in PACU Performed By: #### L 100.0500, L500.2500 ####[facility] [address] [place], [address] CBC-Complete Blood Cnt No Di ffon 01-31-2024 Erythrocyte distribution width (RBC) [Ratio] 12.9 % Normal 11.6-14.6 [facility] Comment on above: Order Comment: Comme nts: To be done in PACU Performed By: #### L 100.0500, L500.2500 ####[facility] [address] [place], [address] Hematocrit (Bld) [Volume fraction] 36.0 % Low 40-54 [facility] Comment on above: Order Comment: Comme nts: To be done in PACU Performed By: #### L 100.0500, L500.2500 ####[facility] [address] [place], [address] Hemoglobin (Bld) [Mass/Vol] 12.6 g/dL Low 13.0-16.5 [facility] Comment on above: Order Comment: Comme nts: To be done in PACU Performed By: #### L 100.0500, L500.2500 ####[facility] [address] [place], [address] MCH (RBC) [Entitic mass] 31.5 pg Normal 27.0-32.0 [facility] Comment on above: Order Comment: Comme nts: To be done in PACU Performed By: #### L 100.0500, L500.2500 ####[facility] [address] [place], [address] MCHC (RBC) [Mass/Vol] 35.0 g/dL Normal 32-36 [facility] Comment on above: Order Comment: Comme nts: To be done in PACU Performed By: #### L 100.0500, L500.2500 ####[facility] [address] [place], [address] MCV (RBC) [Entitic vol] 90.0 fL Normal 80-94 [facility] Comment on above: Order Comment: Comme nts: To be done in PACU Performed By: #### L 100.0500, L500.2500 ####[facility] [address] [place], [address] Platelet mean volume (Bld) [Entitic vol] 9.5 fL Normal 6.2-12.0 [facility] Comment on above: Order Comment: Comme nts: To be done in PACU Performed By: #### L 100.0500, L500.2500 ####[facility] [address] [place], [address] Platelets (Bld) [#/Vol] 230 10*3/uL Normal 150-450 [facility] Comment on above: Order Comment: Comme nts: To be done in PACU Performed By: #### L 100.0500, L500.2500 ####[facility] [address] [place], [address] RBC (Bld) [#/Vol] 4.00 10*6/uL Low 4.6-6.2 [facility] Comment on above: Order Comment: Comme nts: To be done in PACU Performed By: #### L 100.0500, L500.2500 ####[facility] [address] [place], [address] RDW SD 42.5 fl Normal 35.1-43.9 [facility] Comment on above: Order Comment: Comme nts: To be done in PACU Performed By: #### L 100.0500, L500.2500 ####[facility] [address] [place], [address] WBC (Bld) [#/Vol] 8.6 10*3/uL Normal 4.4-11.0 [facility] Comment on above: Order Comment: Comme nts: To be done in PACU Performed By: #### L 100.0500, L500.2500 ####[facility] [address] [place], [address] Discharge Instructionon 01-15 Discharge Instruction Normal [facility] MR/POSTOP.ANEon 01-31-2024 MR/POSTOP.ANE Normal [facility] Operative Reporton Operative Report Normal [facility] Surgery Specimen Level Von 1 Surgery Specimen Level V Normal [facility] Comment on above: Performed By: #### P SUV ####[facility] [address] [place], [address] US RENALon 01-08-2024 US RENAL ORIGINAL EXAMINATION: LIMITED RETROPERITONEAL ULTRASOUND9/ 7:28 am Ultrasound retroperitoneum Complete: Attention Urinary tract COMPARISON: None TECHNIQUE: This report is based on interpretation of permanently recorded ultrasound images. HISTORY: ORDERING SYSTEM PROVIDED HISTORY: Reason for Exam: -Renal & Bladder Ultrasound to evaluate for bladder tumors and/or upper tract obstruction, patient gives history of recent hematuria, frequent urination, recent passage of stones FINDINGS: Right kidney: 10.6 x 4.4 x 3.9 cm. There is normal cortical thickness and echogenicity. No pelvocaliectasis, shadowing stone or renal mass is seen. Left kidney: 11.5 x 4.6 x 5.5 cm. There is normal cortical thickness and echogenicity. Mild to moderate pelvocaliectasis is present. No renal mass or shadowing stone is seen. There is no free fluid seen in the abdomen. Urinary bladder is quite well distended with volume of about 300 cc. There is a large irregular heterogeneous mass in the dependent portion of the urinary bladder that is about 7.1 x 6.6 x 5.1 cm. This is very echogenic anteriorly and may be partially calcified. There seem to be areas of significant blood flow in the mass although some of this could be Doppler twinkle artifact also.. The prostate is difficult to separate from the suspected mass. IMPRESSION: There is left-sided hydronephrosis of uncertain etiology and significance. Large masslike abnormality in the urinary bladder that may be a combination of blood clot and actual mass. This requires further evaluation with cystoscopy. Interpreted by: Devaughn Holland MD Preliminary Report By: Devaughn Holland MD Electronically signed By Devaughn Holland MD Dictated Date: 01/08/2024 12:04:31 PM Prelim Date: 01/08/2024 12:08:29 PM Sign Date: 01/08/2024 12:08:29 PM Ordering Provider: KYRIE LOZANO Normal [facility] .Auto Diffon 12-29-2023 Basophil, Absolute 0.1 10 3/mcL Normal 0.0-0.2 [facility] Comment on above: Performed By: #### P SA, ANEU, CBC, ADIFF, CMP, GFR #### [facility] [address] [place], [place] [address] Basophils/100 WBC (Bld) 0.6 % Normal 0.0-2.5 [facility] Comment on above: Performed By: #### P SA, ANEU, CBC, ADIFF, CMP, GFR #### [address] [address] Eosinophil, Absolute 0.0 10 3/mcL Normal 0.0-0.[address] [facility] Comment on above: Performed By: #### P SA, ANEU, CBC, ADIFF, CMP, GFR #### [address] [address] Eosinophils/100 WBC (Bld) 0.5 % Normal 0.0-7.0 [facility] Comment on above: Performed By: #### P SA, ANEU, CBC, ADIFF, CMP, GFR #### [address] [address] Lymphocyte, Absolute 1.6 10 3/mcL Normal 0.8-3.[address] [facility] Comment on above: Performed By: #### P SA, ANEU, CBC, ADIFF, CMP, GFR #### [address] [address] Lymphocytes/100 WBC (Bld) 19.4 % Normal 10.0-50.0 [facility] Comment on above: Performed By: #### P SA, ANEU, CBC, ADIFF, CMP, GFR #### [address] [address] Monocyte, Absolute 0.6 10 3/mcL Normal 0.2-1.0 [facility] Comment on above: Performed By: #### P SA, ANEU, CBC, ADIFF, CMP, GFR #### [address] [address] Monocytes/100 WBC (Bld) 6.7 % Normal 1.7-13.0 [facility] Comment on above: Performed By: #### P SA, ANEU, CBC, ADIFF, CMP, GFR #### [address] [address] Neutrophils/100 WBC (Bld) 72.8 % Normal 37.0-80.0 [facility] Comment on above: Performed By: #### P SA, ANEU, CBC, ADIFF, CMP, GFR #### [address] [address] .GFRon 12-29-2023 GFR 72 ml/min/1.73sqm Normal [facility] Comment on above: Result Comment: GFR Population mean for , Non- Americans Ages 20-29 = 116 mL/min/1.73 sq.m. Ages 30-39 = 107 mL/min/1.73 sq.m. Ages 40-49 = 99 mL/min/1.73 sq.m. Ages 50-59 = 93 mL/min/1.73 sq.m. Ages 60-69 = 85 mL/min/1.73 sq.m. Ages 70+ = 75 mL/min/1.73 sq.m. Chronic Kidney Disease: Less than 60 mL/min/1.73 square meters End Stage Renal Disease: Less than 15 mL/min/1.73 square meters Performed By: #### P SA, ANEU, CBC, ADIFF, CMP, GFR #### [address] [address] GFR Non- 59 ml/min/1.73sqm Normal [facility] Comment on above: Result Comment: GFR Population mean for , Non- Americans Ages 20-29 = 116 mL/min/1.73 sq.m. Ages 30-39 = 107 mL/min/1.73 sq.m. Ages 40-49 = 99 mL/min/1.73 sq.m. Ages 50-59 = 93 mL/min/1.73 sq.m. Ages 60-69 = 85 mL/min/1.73 sq.m. Ages 70+ = 75 mL/min/1.73 sq.m. Chronic Kidney Disease: Less than 60 mL/min/1.73 square meters End Stage Renal Disease: Less than 15 mL/min/1.73 square meters Performed By: #### P SA, ANEU, CBC, ADIFF, CMP, GFR #### [address] [address] .NEUABSon 12-29-2023 Neutrophil, Absolute 6.2 10 3/mcL Normal 2.9-6.[address] [facility] Comment on above: Performed By: #### P SA, ANEU, CBC, ADIFF, CMP, GFR #### [place] [address] CBCon 12-29-2023 Erythrocyte distribution width (RBC) [Ratio] 13.2 % Normal 11.5-14.5 [facility] Comment on above: Performed By: #### P SA, ANEU, CBC, ADIFF, CMP, GFR #### [place] [address] Hematocrit (Bld) [Volume fraction] 43.6 % Normal 42.0-52.0 [facility] Comment on above: Performed By: #### P SA, ANEU, CBC, ADIFF, CMP, GFR #### [place] [address] Hgb 15.2 G/dL Normal 14.0-18.0 [facility] Comment on above: Performed By: #### P SA, ANEU, CBC, ADIFF, CMP, GFR #### [place] [address] MCH (RBC) [Entitic mass] 31.8 pg High 27.0-31.2 [facility] Comment on above: Performed By: #### P SA, ANEU, CBC, ADIFF, CMP, GFR #### [place] [address] MCHC 34.8 G/dL Normal 31.8-35.4 [facility] Comment on above: Performed By: #### P SA, ANEU, CBC, ADIFF, CMP, GFR #### [place] [address] MCV (RBC) [Entitic vol] 91.5 fL Normal 80.0-94.0 [facility] Comment on above: Performed By: #### P SA, ANEU, CBC, ADIFF, CMP, GFR #### [place] [address] Platelet 229 10 3/mcL Normal 130-400 [facility] Comment on above: Performed By: #### P SA, ANEU, CBC, ADIFF, CMP, GFR #### [address] [address] Platelet mean volume (Bld) [Entitic vol] 7.7 fL Normal 7.4-10.4 [facility] Comment on above: Performed By: #### P SA, ANEU, CBC, ADIFF, CMP, GFR #### [address] [address] RBC 4.77 10 6/mcL Normal 4.04-6.13 [facility] Comment on above: Performed By: #### P SA, ANEU, CBC, ADIFF, CMP, GFR #### [address] [address] WBC 8.5 10 3/mcL Normal 4.6-10.8 [facility] Comment on above: Performed By: #### P SA, ANEU, CBC, ADIFF, CMP, GFR #### [address] [address] CMPon 12-29-2023 Albumin Level 4.3 G/dL Normal 3.4-4.8 [facility] Comment on above: Performed By: #### P SA, ANEU, CBC, ADIFF, CMP, GFR #### [address] [address] Albumin/Globulin [Mass ratio] 2.0 {ratio} Normal 1.1-2.5 [facility] Comment on above: Performed By: #### P SA, ANEU, CBC, ADIFF, CMP, GFR #### [address] [address] ALP [Catalytic activity/Vol] 94 U/L Normal 40-135 [facility] Comment on above: Performed By: #### P SA, ANEU, CBC, ADIFF, CMP, GFR #### [address] [address] ALT [Catalytic activity/Vol] 30 U/L Normal 16-63 [facility] Comment on above: Performed By: #### P SA, ANEU, CBC, ADIFF, CMP, GFR #### [address] [address] AST [Catalytic activity/Vol] 22 U/L Normal 10-40 [facility] Comment on above: Performed By: #### P SA, ANEU, CBC, ADIFF, CMP, GFR #### [address] [address] Bili Total 0.8 mg/dL Normal 0.2-1.0 [facility] Comment on above: Result Comment: Use of this assay is not recommended for patients undergoing treatment with eltrombopag due to the potential for falsely elevated results. Performed By: #### P SA, ANEU, CBC, ADIFF, CMP, GFR #### [address] [address] BUN/Creatinine Ratio 15 ratio Normal 7-27 [facility] Comment on above: Performed By: #### P SA, ANEU, CBC, ADIFF, CMP, GFR #### [address] [address] Calcium [Mass/Vol] 10.0 mg/dL Normal 8.4-10.2 [facility] Comment on above: Performed By: #### P SA, ANEU, CBC, ADIFF, CMP, GFR #### [address] [address] Chloride [Moles/Vol] 104 mmol/L Normal 98-107 [facility] Comment on above: Performed By: #### P SA, ANEU, CBC, ADIFF, CMP, GFR #### [address] [address] CO2 [Moles/Vol] 22 mmol/L Low 23-31 [facility] Comment on above: Performed By: #### P SA, ANEU, CBC, ADIFF, CMP, GFR #### [address] [address] Creatinine [Mass/Vol] 1.22 mg/dL Normal 0.70-1.[address] [facility] Comment on above: Result Comment: Test ing performed on Siemens Dimension EXL analyzer using a modified kinetic Jarad technique. Performed By: #### P SA, ANEU, CBC, ADIFF, CMP, GFR #### [address] [address] Electrolyte Balance 13.0 mEq/L Normal 4.0-15.0 [facility] Comment on above: Performed By: #### P SA, ANEU, CBC, ADIFF, CMP, GFR #### [address] [address] Globulin 2.2 G/dL Normal [facility] Comment on above: Performed By: #### P SA, ANEU, CBC, ADIFF, CMP, GFR #### [address] [address] Glucose [Mass/Vol] 98 mg/dL Normal 80-115 [facility] Comment on above: Performed By: #### P SA, ANEU, CBC, ADIFF, CMP, GFR #### [address] [address] Potassium [Moles/Vol] 4.0 mmol/L Normal 3.5-5.[address] [facility] Comment on above: Performed By: #### P SA, ANEU, CBC, ADIFF, CMP, GFR #### [address] [address] Sodium [Moles/Vol] 139 mmol/L Normal 136-145 [facility] Comment on above: Performed By: #### P SA, ANEU, CBC, ADIFF, CMP, GFR #### [address] [address] Total Protein 6.5 G/dL Normal 6.4-8.2 [facility] Comment on above: Performed By: #### P SA, ANEU, CBC, ADIFF, CMP, GFR #### [address] [address] Urea nitrogen [Mass/Vol] 18 mg/dL Normal 7-18 [facility] Comment on above: Performed By: #### P SA, ANEU, CBC, ADIFF, CMP, GFR #### [place] [id number] [place] [address] LABORATORYOrdered By: SYSTEM SYSTEM on 12-29-2023 Albumin BCP dye [Mass/Vol] 4.3 G/dL Normal 3.4 - 4.8 G/dL AO ADM SS Albumin/Globulin [Mass ratio] 2.0 {ratio} Normal 1.1 - 2.5 ratio AO ADM SS ALP [Catalytic activity/Vol] 94 U/L Normal 40 - 135 U/L AO ADM SS ALT With P-5'-P [Catalytic activity/Vol] 30 U/L Normal 16 - 63 U/L AO ADM SS AST With P-5'-P [Catalytic activity/Vol] 22 U/L Normal 10 - 40 U/L AO ADM SS Basophils (Bld) [#/Vol] 0.1 103/mcL Normal 0.0 - 0.2 10^3/mcL AO Workflow SS Basophils/100 WBC (Bld) 0.6 % Normal 0.0 - 2.5 % AO Workflow SS Bilirubin [Mass/Vol] 0.8 mg/dL Normal 0.2 - 1 .0 mg/dL AO ADM SS Comment on above: Interpretive Data: U se of this assay is not recommended for patients undergoing treatment with eltrombopag due to the potential for falsely elevated results. Calcium [Mass/Vol] 10.0 mg/dL Normal 8.4 - 10. 2 mg/dL AO ADM SS Chloride [Moles/Vol] 104 mmol/L Normal 98 - 10 7 mmol/L AO ADM SS CO2 [Moles/Vol] 22 mmol/L Low 23 - 31 mmol/L AO ADM SS Creatinine [Mass/Vol] 1.22 mg/dL Normal 0.70 - 1.30 mg/dL AO ADM SS Comment on above: Interpretive Data: T esting performed on Siemens Dimension EXL analyzer using a modified kinetic Jarad technique. Electrolyte Balance 13.0 mEq/L Normal 4.0 - 15 .0 mEq/L AO ADM SS Eosinophil, Absolute 0.0 103/mcL Normal 0.0 - 0 .4 10^3/mcL AO Workflow SS Eosinophils/100 WBC (Bld) 0.5 % Normal 0.0 - 7.0 % AO Workflow SS Erythrocyte distribution width (RBC) [Ratio] 13.2 % Normal 11.5 - 14.5 % AO Workflow SS GFR/1.73 sq M.predicted among blacks MDRD (S/P/Bld) [Vol rate/Area] 72 ml/min/1.73sqm Invalid Interpretation Code AO Chemistry S Comment on above: Interpretive Data: GFR Population mean for , Non- Americans Ages 20-29 = 116 mL/min/1.73 sq.m. Ages 30-39 = 107 mL/min/1.73 sq.m. Ages 40-49 = 99 mL/min/1.73 sq.m. Ages 50-59 = 93 mL/min/1.73 sq.m. Ages 60-69 = 85 mL/min/1.73 sq.m. Ages 70+ = 75 mL/min/1.73 sq.m. Chronic Kidney Disease: Less than 60 mL/min/1.73 square meters End Stage Renal Disease: Less than 15 mL/min/1.73 square meters GFR/1.73 sq M.predicted among non-blacks MDRD (S/P/Bld) [Vol rate/Area] 59 ml/min/1.73sqm Invalid Interpretation Code AO Chemistry S Comment on above: Interpretive Data: GFR Population mean for , Non- Americans Ages 20-29 = 116 mL/min/1.73 sq.m. Ages 30-39 = 107 mL/min/1.73 sq.m. Ages 40-49 = 99 mL/min/1.73 sq.m. Ages 50-59 = 93 mL/min/1.73 sq.m. Ages 60-69 = 85 mL/min/1.73 sq.m. Ages 70+ = 75 mL/min/1.73 sq.m. Chronic Kidney Disease: Less than 60 mL/min/1.73 square meters End Stage Renal Disease: Less than 15 mL/min/1.73 square meters Globulin 2.2 G/dL Invalid Interpretation Code AO ADM SS Glucose [Mass/Vol] 98 mg/dL Normal 80 - 115 mg/dL AO ADM SS Hematocrit (Bld) [Volume fraction] 43.6 % Normal 42.0 - 52.0 % AO Workflow SS Hemoglobin (Bld) [Mass/Vol] 15.2 G/dL Normal 14.0 - 18.0 G/dL AO Workflow SS Lymphocytes (Bld) [#/Vol] 1.6 103/mcL Normal 0.8 - 3.9 10^3/mcL AO Workflow SS Lymphocytes/100 WBC (Bld) 19.4 % Normal 10.0 - 50.0 % AO Workflow SS MCH (RBC) [Entitic mass] 31.8 pg High 27. 0 - 31.2 pg AO Workflow SS MCHC 34.8 G/dL Normal 31.8 - 35.4 G/dL AO Workflow SS MCV (RBC) [Entitic vol] 91.5 fL Normal 80.0 - 94.0 fL AO Workflow SS Monocytes (Bld) [#/Vol] 0.6 103/mcL Normal 0.2 - 1.0 10^3/mcL AO Workflow SS Monocytes/100 WBC (Bld) 6.7 % Normal 1.7 - 13.0 % AO Workflow SS Neutrophils (Bld) [#/Vol] 6.2 103/mcL Normal 2.9 - 6.2 10^3/mcL AO Workflow SS Neutrophils/100 WBC (Bld) 72.8 % Normal 37.0 - 80.0 % AO Workflow SS Platelet mean volume (Bld) [Entitic vol] 7.7 fL Normal 7.4 - 10.4 fL AO Workflow SS Platelets (Bld) [#/Vol] 229 103/mcL Normal 130 - 400 10^3/mcL AO Workflow SS Potassium [Moles/Vol] 4.0 mmol/L Normal 3.5 - 5.1 mmol/L AO ADM SS Prostate specific Ag [Mass/Vol] 1.17 ng/mL Normal 0.00 - 4.00 ng/mL AO ADM SS Protein [Mass/Vol] 6.5 G/dL Normal 6.4 - 8.2 G/dL AO ADM SS RBC (Bld) [#/Vol] 4.77 106/mcL Normal 4.04 - 6.1 3 10^6/mcL AO Workflow SS Sodium [Moles/Vol] 139 mmol/L Normal 136 - 145 mmol/L AO ADM SS Urea nitrogen [Mass/Vol] 18 mg/dL Normal 7 - 18 mg/d L AO ADM SS Urea nitrogen/Creatinine [Mass ratio] 15 ratio Normal 7 - 27 ratio AO ADM SS WBC (Bld) [#/Vol] 8.5 103/mcL Normal 4.6 - 10.8 10^3/mcL AO Workflow SS PSAon 12-29-2023 Prostate Specific Antigen 1.17 ng/mL Normal 0.00-4.00 [facility] Comment on above: Performed By: #### P SA, ANEU, CBC, ADIFF, CMP, GFR #### [facility] [address] [place], [place] [address] No Panel Informationon 12-25 Culture Urine <10,000 cfu/ml. No Significant growth. Sensitivity not indicated. [facility] XR SPINE CERVICAL W/ OBLIQUE S 5 VIEWSon 05-01-2023 XR SPINE CERVICAL W/ OBLIQUES 5 VIEWS ORIGINAL EXAMINATION: FIVE XRAY VIEWS OF THE CERVICAL SPINE 05/01/2023 5:23 pm COMPARISON: None. HISTORY: ORDERING SYSTEM PROVIDED HISTORY: Reason for Exam: pain FINDINGS: Vertebral body heights and alignment are preserved. Multilevel degenerative changes of the spine with multilevel neural foraminal narrowing, particularly on the left. Atlantoaxial relationship is preserved. IMPRESSION: No acute osseous abnormality by radiograph. Interpreted by: Zheng Venegas Preliminary Report By: Zheng Venegas Electronically signed By Zheng Venegas Dictated Date: 05/01/2023 5:25:19 PM Prelim Date: 05/01/2023 5:26:40 PM Sign Date: 05/01/2023 5:26:40 PM Ordering Provider: KEYANNA Tellez [facility] ([place]) Vital Signs Date Time Vital Sign Value Performing Clinician Vi orr 12-13-2024 15:25-0400 Body temperature 97 [degF] Kyrie Lozano [employer] Work Phone: [facility] 12-13-2024 15:25-0400 Diastolic blood pressure 74 mm[Hg] Kyrie Lozano [employer] Work Phone: [facility] 12-13-2024 15:25-0400 Heart rate 61 /min Kyrie Lozano [employer] Work Phone: [facility] 12-13-2024 15:25-0400 Respiratory rate 16 /min Kyrie Lozano [employer] Work Phone: [facility] 12-13-2024 15:25-0400 SaO2% (BldA) [Mass fraction] 99 % Kyrie Marta [employer] Work Phone: [facility] 12-13-2024 15:25-0400 Systolic blood pressure 136 mm[Hg] Kyrie Marta [employer] Work Phone: [facility] 12-13-2024 10:42-0400 Body height 165.1 cm Kyrie Lozano [employer] Work Phone: [facility] 12-13-2024 10:42-0400 Body mass index (BMI) [Ratio] 22.4 kg/m2 Kyrie Broome [employer] Work Phone: [facility] 12-13-2024 10:42-0400 Body weight 61.1 kg Kyrie Lozano [employer] Work Phone: [facility] 11-07-2024 08:26-0400 Body height 165.1 cm Kyrie Broome [employer] Work Phone: [facility] 11-07-2024 08:25-0400 Body mass index (BMI) [Ratio] 22.5 kg/m2 Kyrie Broome [employer] Work Phone: [facility] 11-07-2024 08:25-0400 Body temperature 96.8 [degF] Kyrie Lozano [employer] Work Phone: [facility] 11-07-2024 08:25-0400 Body weight 61.46 kg Kyrie Marta [employer] Work Phone: [facility] 11-07-2024 08:25-0400 Diastolic blood pressure 69 mm[Hg] Kyrie Lozano [employer] Work Phone: [facility] 11-07-2024 08:25-0400 Heart rate 64 /min Kyrie Lozano [employer] Work Phone: [facility] 11-07-2024 08:25-0400 Respiratory rate 16 /min Kyrie Lozano [employer] Work Phone: [facility] 11-07-2024 08:25-0400 SaO2% (BldA) [Mass fraction] 97 % Kyrie Wallacepkins [employer] Work Phone: [facility] 11-07-2024 08:25-0400 Systolic blood pressure 110 mm[Hg] Kyrie Wallacepkins [employer] Work Phone: [facility] 11-07-2024 08:03-0400 Body mass index (BMI) [Ratio] 22.5 kg/m2 Kyrie Wallacepkins [employer] Work Phone: [facility] 11-07-2024 08:03-0400 Body temperature 96.8 [degF] Kyrie Wallacepkins [employer] Work Phone: [facility] 11-07-2024 08:03-0400 Body weight 61.46 kg Kyrie Wallacepkins [employer] Work Phone: [facility] 11-07-2024 08:03-0400 Diastolic blood pressure 69 mm[Hg] Kyrie Wallacepkins [employer] Work Phone: [facility] 11-07-2024 08:03-0400 Heart rate 64 /min Kyrie Wallacepkins [employer] Work Phone: [facility] 11-07-2024 08:03-0400 Respiratory rate 16 /min Kyrie Wallacepkins [employer] Work Phone: [facility] 11-07-2024 08:03-0400 SaO2% (BldA) [Mass fraction] 97 % Kyrie Wallacepkins [employer] Work Phone: [facility] 11-07-2024 08:03-0400 Systolic blood pressure 110 mm[Hg] Kyrie Wallacepkins [employer] Work Phone: [facility] 08-12-2024 10:32-0400 Body height 165.1 cm Kyrie Broome [employer] Work Phone: [facility] 08-12-2024 09:54-0400 Body mass index (BMI) [Ratio] 22.1 kg/m2 Kyrie Lozano [employer] Work Phone: [facility] 08-12-2024 09:54-0400 Body temperature 96.5 [degF] Kyrie Lozano [employer] Work Phone: [facility] 08-12-2024 09:54-0400 Body weight 60.52 kg Kyrie Lozano [employer] Work Phone: [facility] 08-12-2024 09:54-0400 Diastolic blood pressure 72 mm[Hg] Kyrie Lozano [employer] Work Phone: [facility] 08-12-2024 09:54-0400 Heart rate 75 /min Kyrie Lozano [employer] Work Phone: [facility] 08-12-2024 09:54-0400 Respiratory rate 18 /min Kyrie Broome [employer] Work Phone: [facility] 08-12-2024 09:54-0400 SaO2% (BldA) [Mass fraction] 100 % Kyrie Lozano [employer] Work Phone: [facility] 08-12-2024 09:54-0400 Systolic blood pressure 115 mm[Hg] Kyrie Lozano [employer] Work Phone: [facility] 07-24-2024 21:54-0400 Body temperature 99.2 [degF] Kyrie Lozano [employer] Work Phone: [facility] 07-24-2024 21:54-0400 Diastolic blood pressure 72 mm[Hg] Kyrie Lozano [employer] Work Phone: [facility] 07-24-2024 21:54-0400 Heart rate 77 /min Kyrie Lozano [employer] Work Phone: [facility] 07-24-2024 21:54-0400 Respiratory rate 19 /min Kyrie Lozano [employer] Work Phone: [facility] 07-24-2024 21:54-0400 SaO2% (BldA) [Mass fraction] 99 % Kyrie Lozano [employer] Work Phone: [facility] 07-24-2024 21:54-0400 Systolic blood pressure 114 mm[Hg] Kyrie Wallacepkins [employer] Work Phone: [facility] 07-24-2024 17:18-0400 Body height 165.1 cm Kyrie Wallcaepkins [employer] Work Phone: [facility] 07-24-2024 17:18-0400 Body mass index (BMI) [Ratio] 22.5 kg/m2 Kyrie Wallacepkins [employer] Work Phone: [facility] 07-24-2024 17:18-0400 Body weight 61.41 kg Kyrie Wallacepkins [employer] Work Phone: [facility] 07-16-2024 08:01-0400 Body mass index (BMI) [Ratio] 23.6 kg/m2 Kyrie Wallacepkins [employer] Work Phone: [facility] 07-16-2024 08:01-0400 Body temperature 97 [degF] Kyrie Wallacepkins [employer] Work Phone: [facility] 07-16-2024 08:01-0400 Body weight 64.58 kg Kyrie Wallacepkins [employer] Work Phone: [facility] 07-16-2024 08:01-0400 Diastolic blood pressure 70 mm[Hg] Kyrie Wallacepkins [employer] Work Phone: [facility] 07-16-2024 08:01-0400 Heart rate 60 /min Kyrie Wallacepkins [employer] Work Phone: [facility] 07-16-2024 08:01-0400 Respiratory rate 18 /min Kyrie Wallacepkins [employer] Work Phone: [facility] 07-16-2024 08:01-0400 SaO2% (BldA) [Mass fraction] 100 % Kyrie Wallacepkins [employer] Work Phone: [facility] 07-16-2024 08:01-0400 Systolic blood pressure 129 mm[Hg] Kyrie Wallacepkins [employer] Work Phone: [facility] 07-15-2024 08:31-0400 Body mass index (BMI) [Ratio] 22.5 kg/m2 Kyrie Wallacepkins [employer] Work Phone: [facility] 07-15-2024 08:31-0400 Body temperature 98.4 [degF] Kyrie Wallacepkins [employer] Work Phone: [facility] 07-15-2024 08:31-0400 Body weight 61.4 kg Kyrie Wallacepkins [employer] Work Phone: [facility] 07-15-2024 08:31-0400 Diastolic blood pressure 65 mm[Hg] Kyrie Wallacepkins [employer] Work Phone: [facility] 07-15-2024 08:31-0400 Heart rate 64 /min Kyrie Wallacepkins [employer] Work Phone: [facility] 07-15-2024 08:31-0400 Respiratory rate 18 /min Kyrie Wallacepkins [employer] Work Phone: [facility] 07-15-2024 08:31-0400 SaO2% (BldA) [Mass fraction] 100 % Kyrie Wallacepkins [employer] Work Phone: [facility] 07-15-2024 08:31-0400 Systolic blood pressure 105 mm[Hg] Kyrie Marta [employer] Work Phone: [facility] 07-11-2024 08:06-0400 Body mass index (BMI) [Ratio] 23.6 kg/m2 Kyrie Marta [employer] Work Phone: [facility] 07-11-2024 08:06-0400 Body temperature 97.5 [degF] Kyrie Wallacepkins [employer] Work Phone: [facility] 07-11-2024 08:06-0400 Body weight 64.52 kg Kyrie Lozano [employer] Work Phone: [facility] 07-11-2024 08:06-0400 Diastolic blood pressure 72 mm[Hg] Kyrie Wallacepkins [employer] Work Phone: [facility] 07-11-2024 08:06-0400 Heart rate 49 /min Kyrie Wallacepkins [employer] Work Phone: [facility] 07-11-2024 08:06-0400 Respiratory rate 18 /min Kyrie Wallacepkins [employer] Work Phone: [facility] 07-11-2024 08:06-0400 SaO2% (BldA) [Mass fraction] 100 % Kyrie Wallacepkins [employer] Work Phone: [facility] 07-11-2024 08:06-0400 Systolic blood pressure 114 mm[Hg] Kyrie Wallacepkins [employer] Work Phone: [facility] 07-08-2024 08:33-0400 Body mass index (BMI) [Ratio] 22.8 kg/m2 Kyrie Wallacepkins [employer] Work Phone: [facility] 07-08-2024 08:33-0400 Body temperature 98.2 [degF] Kyrie Wallacepkins [employer] Work Phone: [facility] 07-08-2024 08:33-0400 Body weight 62.39 kg Kyrie Wallacepkins [employer] Work Phone: [facility] 07-08-2024 08:33-0400 Diastolic blood pressure 65 mm[Hg] Kyrie Marta [employer] Work Phone: [facility] 07-08-2024 08:33-0400 Heart rate 55 /min Kyrie Broome [employer] Work Phone: [facility] 07-08-2024 08:33-0400 Respiratory rate 18 /min Kyrie Wallacepkins [employer] Work Phone: [facility] 07-08-2024 08:33-0400 SaO2% (BldA) [Mass fraction] 100 % Kyrie Wallacepkins [employer] Work Phone: [facility] 07-08-2024 08:33-0400 Systolic blood pressure 106 mm[Hg] Kyrie Lozano [employer] Work Phone: [facility] 07-04-2024 08:01-0400 Body mass index (BMI) [Ratio] 23.6 kg/m2 Kyrie Marta [employer] Work Phone: [facility] 07-04-2024 08:01-0400 Body temperature 96.9 [degF] Kyrie Lozano [employer] Work Phone: [facility] 07-04-2024 08:01-0400 Body weight 64.52 kg Kyrie Marta [employer] Work Phone: [facility] 07-04-2024 08:01-0400 Diastolic blood pressure 70 mm[Hg] Kyrie Lozano [employer] Work Phone: [facility] 07-04-2024 08:01-0400 Heart rate 60 /min Kyrie Lozano [employer] Work Phone: [facility] 07-04-2024 08:01-0400 Respiratory rate 16 /min Kyrie Marta [employer] Work Phone: [facility] 07-04-2024 08:01-0400 SaO2% (BldA) [Mass fraction] 98 % Kyrie Marta [employer] Work Phone: [facility] 07-04-2024 08:01-0400 Systolic blood pressure 109 mm[Hg] Kyrie Lozano [employer] Work Phone: [facility] 07-01-2024 08:39-0400 Body mass index (BMI) [Ratio] 23.5 kg/m2 Kyrie Wallacepkins [employer] Work Phone: [facility] 07-01-2024 08:39-0400 Body temperature 98.2 [degF] Kyrie Lozano [employer] Work Phone: [facility] 07-01-2024 08:39-0400 Body weight 64.15 kg Kyrie Wallacepkins [employer] Work Phone: [facility] 07-01-2024 08:39-0400 Diastolic blood pressure 60 mm[Hg] Kyrie Wallacepkins [employer] Work Phone: [facility] 07-01-2024 08:39-0400 Heart rate 58 /min Kyrie Lozano [employer] Work Phone: [facility] 07-01-2024 08:39-0400 Respiratory rate 18 /min Kyrie Wallacepkins [employer] Work Phone: [facility] 07-01-2024 08:39-0400 SaO2% (BldA) [Mass fraction] 100 % Kyrie Wallacepkins [employer] Work Phone: [facility] 07-01-2024 08:39-0400 Systolic blood pressure 104 mm[Hg] Kyrie Wallacepkins [employer] Work Phone: [facility] 06-26-2024 08:12-0400 Body mass index (BMI) [Ratio] 24.7 kg/m2 Kyrie Wallacepkins [employer] Work Phone: [facility] 06-26-2024 08:12-0400 Body temperature 97 [degF] Kyrie Wallacepkins [employer] Work Phone: [facility] 06-26-2024 08:12-0400 Body weight 67.27 kg Kyrie Wallacepkins [employer] Work Phone: [facility] 06-26-2024 08:12-0400 Diastolic blood pressure 68 mm[Hg] Kyrie Marta [employer] Work Phone: [facility] 06-26-2024 08:12-0400 Heart rate 56 /min Kyrie Lozano [employer] Work Phone: [facility] 06-26-2024 08:12-0400 Respiratory rate 16 /min Kyrie Broome [employer] Work Phone: [facility] 06-26-2024 08:12-0400 SaO2% (BldA) [Mass fraction] 99 % Kyrie Marta [employer] Work Phone: [facility] 06-26-2024 08:12-0400 Systolic blood pressure 128 mm[Hg] Kyrie Lozano [employer] Work Phone: [facility] 06-24-2024 12:29-0400 Diastolic blood pressure 63 mm[Hg] Kyrie Lozano [employer] Work Phone: [facility] 06-24-2024 12:29-0400 Heart rate 54 /min Kyrie Broome [employer] Work Phone: [facility] 06-24-2024 12:29-0400 Systolic blood pressure 123 mm[Hg] Kyrie Lozano [employer] Work Phone: [facility] 06-24-2024 08:42-0400 Body mass index (BMI) [Ratio] 24.3 kg/m2 Kyrie Lozano [employer] Work Phone: [facility] 06-24-2024 08:42-0400 Body temperature 98.3 [degF] Kyrie Lozano [employer] Work Phone: [facility] 06-24-2024 08:42-0400 Body weight 66.25 kg Kyrie Lozano [employer] Work Phone: [facility] 06-24-2024 08:42-0400 Diastolic blood pressure 67 mm[Hg] Kyrie Lozano [employer] Work Phone: [facility] 06-24-2024 08:42-0400 Heart rate 59 /min Kyrie Lozano [employer] Work Phone: [facility] 06-24-2024 08:42-0400 Respiratory rate 18 /min Kyrie Lozano [employer] Work Phone: [facility] 06-24-2024 08:42-0400 SaO2% (BldA) [Mass fraction] 100 % Kyrie Lozano [employer] Work Phone: [facility] 06-24-2024 08:42-0400 Systolic blood pressure 118 mm[Hg] Kyrie Lozano [employer] Work Phone: [facility] 06-19-2024 08:05-0500 Body mass index (BMI) [Ratio] 24 kg/m2 Kyrie Lozano [employer] Work Phone: [facility] 06-19-2024 08:05-0500 Body temperature 97.8 [degF] Kyrie Lozano [employer] Work Phone: [facility] 06-19-2024 08:05-0500 Body weight 65.51 kg Kyrie Lozano [employer] Work Phone: [facility] 06-19-2024 08:05-0500 Diastolic blood pressure 62 mm[Hg] Kyrie Lozano [employer] Work Phone: [facility] 06-19-2024 08:05-0500 Heart rate 63 /min Kyrie Wallacepkins [employer] Work Phone: [facility] 06-19-2024 08:05-0500 Respiratory rate 16 /min Kyrie Lozano [employer] Work Phone: [facility] 06-19-2024 08:05-0500 SaO2% (BldA) [Mass fraction] 98 % Kyrie Lozano [employer] Work Phone: [facility] 06-19-2024 08:05-0500 Systolic blood pressure 98 mm[Hg] Kyrie Marta [employer] Work Phone: [facility] 06-14-2024 08:13-0500 Body temperature 97.6 [degF] Kyrie Lozano [employer] Work Phone: [facility] 06-14-2024 08:13-0500 Diastolic blood pressure 64 mm[Hg] Kyrie Lozano [employer] Work Phone: [facility] 06-14-2024 08:13-0500 Heart rate 56 /min Kyrie Lozano [employer] Work Phone: [facility] 06-14-2024 08:13-0500 Respiratory rate 18 /min Kyrie Lozano [employer] Work Phone: [facility] 06-14-2024 08:13-0500 SaO2% (BldA) [Mass fraction] 100 % Kyrie Lozano [employer] Work Phone: [facility] 06-14-2024 08:13-0500 Systolic blood pressure 101 mm[Hg] Kyrie Lozano [employer] Work Phone: [facility] 06-14-2024 06:25-0500 Body mass index (BMI) [Ratio] 24 kg/m2 Kyrie Lozano [employer] Work Phone: [facility] 06-14-2024 06:25-0500 Body weight 65.7 kg Kyrie Lozano [employer] Work Phone: [facility] 06-11-2024 10:37-0500 Body height 165.1 cm Roel Barrios MD Work Phone: [facility] 06-11-2024 10:37-0500 Body mass index (BMI) [Ratio] 24.1 kg/m2 Roel Barrios MD Work Phone: [facility] 06-11-2024 10:37-0500 Body weight 65.7 kg Roel Barrios MD Work Phone: [facility] 06-11-2024 10:37-0500 Diastolic blood pressure 78 mm[Hg] Roel Barrios MD Work Phone: [facility] 06-11-2024 10:37-0500 Heart rate 69 /min Roel Barrios MD Work Phone: [facility] 06-11-2024 10:37-0500 Systolic blood pressure 130 mm[Hg] Roel Barrios MD Work Phone: [facility] 06-10-2024 07:56-0500 Body mass index (BMI) [Ratio] 24.6 kg/m2 Kyrie Lozano [employer] Work Phone: [facility] 06-10-2024 07:56-0500 Body weight 67.13 kg Kyrie Lozano [employer] Work Phone: [facility] 06-10-2024 07:56-0500 Diastolic blood pressure 76 mm[Hg] Kyrie Lozano [employer] Work Phone: [facility] 06-10-2024 07:56-0500 Respiratory rate 16 /min Kyrie Lozano [employer] Work Phone: [facility] 06-10-2024 07:56-0500 Systolic blood pressure 126 mm[Hg] Kyrie Lozano [employer] Work Phone: [facility] 05-24-2024 08:05-0500 Body mass index (BMI) [Ratio] 24.3 kg/m2 Kyrie Lozano [employer] Work Phone: [facility] 05-24-2024 08:05-0500 Body temperature 96.7 [degF] Kyrie Lozano [employer] Work Phone: [facility] 05-24-2024 08:05-0500 Body weight 66.33 kg Kyrie Lozano [employer] Work Phone: [facility] 05-24-2024 08:05-0500 Diastolic blood pressure 65 mm[Hg] Kyrie Lozano [employer] Work Phone: [facility] 05-24-2024 08:05-0500 Heart rate 69 /min Kyrie Lozano [employer] Work Phone: [facility] 05-24-2024 08:05-0500 Respiratory rate 16 /min Kyrie Lozano [employer] Work Phone: [facility] 05-24-2024 08:05-0500 SaO2% (BldA) [Mass fraction] 100 % Kyrie Lozano [employer] Work Phone: [facility] 05-24-2024 08:05-0500 Systolic blood pressure 109 mm[Hg] Kyrie Lozano [employer] Work Phone: [facility] 05-21-2024 10:56-0500 Body mass index (BMI) [Ratio] 24.3 kg/m2 Kyrie Lozano [employer] Work Phone: [facility] 05-21-2024 10:56-0500 Body temperature 97.3 [degF] Kyrie Lozano [employer] Work Phone: [facility] 05-21-2024 10:56-0500 Body weight 66.28 kg Kyrie Lozano [employer] Work Phone: [facility] 05-21-2024 10:56-0500 Diastolic blood pressure 71 mm[Hg] Kyrie Lozano [employer] Work Phone: [facility] 05-21-2024 10:56-0500 Heart rate 57 /min Kyrie Lozano [employer] Work Phone: [facility] 05-21-2024 10:56-0500 Respiratory rate 16 /min Kyrie Lozano [employer] Work Phone: [facility] 05-21-2024 10:56-0500 SaO2% (BldA) [Mass fraction] 97 % Kyrie Lozano [employer] Work Phone: [facility] 05-21-2024 10:56-0500 Systolic blood pressure 154 mm[Hg] Kyrie Marta [employer] Work Phone: [facility] 05-10-2024 12:31-0500 Body temperature 97 [degF] Kyrie Wallacepkins [employer] Work Phone: [facility] 05-10-2024 12:31-0500 Diastolic blood pressure 72 mm[Hg] Kyrie Wallacepkins [employer] Work Phone: [facility] 05-10-2024 12:31-0500 Heart rate 58 /min Kyrie Wallacepkins [employer] Work Phone: [facility] 05-10-2024 12:31-0500 Respiratory rate 16 /min Kyrie Wallacepkins [employer] Work Phone: [facility] 05-10-2024 12:31-0500 SaO2% (BldA) [Mass fraction] 99 % Kyrie Wallacepkins [employer] Work Phone: [facility] 05-10-2024 12:31-0500 Systolic blood pressure 105 mm[Hg] Kyrie Lozano [employer] Work Phone: [facility] 05-10-2024 10:11-0500 Body mass index (BMI) [Ratio] 23.8 kg/m2 Kyrie Broome [employer] Work Phone: [facility] 05-10-2024 10:11-0500 Body weight 65 kg Kyrie Wallacepkins [employer] Work Phone: [facility] 04-30-2024 09:21-0500 Body mass index (BMI) [Ratio] 23.8 kg/m2 Kyrie Wallacepkins [employer] Work Phone: [facility] 04-30-2024 09:21-0500 Body temperature 97 [degF] Kyrie Marta [employer] Work Phone: [facility] 04-30-2024 09:21-0500 Body weight 64.86 kg Kyrie Lozano [employer] Work Phone: [facility] 04-30-2024 09:21-0500 Diastolic blood pressure 71 mm[Hg] Kyrie Lozano [employer] Work Phone: [facility] 04-30-2024 09:21-0500 Heart rate 52 /min Kyrie Lozano [employer] Work Phone: [facility] 04-30-2024 09:21-0500 Respiratory rate 18 /min Kyrie Lozano [employer] Work Phone: [facility] 04-30-2024 09:21-0500 SaO2% (BldA) [Mass fraction] 100 % Kyrie Lozano [employer] Work Phone: [facility] 04-30-2024 09:21-0500 Systolic blood pressure 131 mm[Hg] Kyrie Lozano [employer] Work Phone: [facility] 04-25-2024 16:12-0500 Body mass index (BMI) [Ratio] 24 kg/m2 Kyrie Wallacepkins [employer] Work Phone: [facility] 04-25-2024 16:12-0500 Body temperature 98.6 [degF] Kyrie Lozano [employer] Work Phone: [facility] 04-25-2024 16:12-0500 Body weight 65.51 kg Kyrie Lozano [employer] Work Phone: [facility] 04-25-2024 16:12-0500 Diastolic blood pressure 70 mm[Hg] Kyrie Wallacepkins [employer] Work Phone: [facility] 04-25-2024 16:12-0500 Heart rate 57 /min Kyrie Lozano [employer] Work Phone: [facility] 04-25-2024 16:12-0500 Respiratory rate 18 /min Kyrie Lozano [employer] Work Phone: [facility] 04-25-2024 16:12-0500 SaO2% (BldA) [Mass fraction] 98 % Kyrie Wallacepkins [employer] Work Phone: [facility] 04-25-2024 16:12-0500 Systolic blood pressure 131 mm[Hg] Kyrie Wallacepkins [employer] Work Phone: [facility] 2024 08:26-0500 Body mass index (BMI) [Ratio] 24.5 kg/m2 Kyrie Wallacepkins [employer] Work Phone: [facility] 2024 08:26-0500 Body temperature 98.2 [degF] Kyrei Wallacepkins [employer] Work Phone: [facility] 2024 08:26-0500 Body weight 66.81 kg Kyrie Wallacepkins [employer] Work Phone: [facility] 2024 08:26-0500 Diastolic blood pressure 69 mm[Hg] Kyrie Wallacepkins [employer] Work Phone: [facility] 2024 08:26-0500 Heart rate 66 /min Kyrie Wallacepkins [employer] Work Phone: [facility] 2024 08:26-0500 Respiratory rate 18 /min Kyrie Wallacepkins [employer] Work Phone: [facility] 2024 08:26-0500 SaO2% (BldA) [Mass fraction] 100 % Kyrie Wallacepkins [employer] Work Phone: [facility] 2024 08:26-0500 Systolic blood pressure 116 mm[Hg] Kyrie Wallacepkins [employer] Work Phone: [facility] 04-04-2024 15:17-0500 Body mass index (BMI) [Ratio] 23.9 kg/m2 Kyrie Wallacepkins [employer] Work Phone: [facility] 04-04-2024 15:17-0500 Body temperature 98.8 [degF] Kyrie Marta [employer] Work Phone: [facility] 04-04-2024 15:17-0500 Body weight 65.31 kg Kyrie Lozano [employer] Work Phone: [facility] 04-04-2024 15:17-0500 Diastolic blood pressure 74 mm[Hg] Kyrie Lozano [employer] Work Phone: [facility] 04-04-2024 15:17-0500 Heart rate 67 /min Kyrie Lozano [employer] Work Phone: [facility] 04-04-2024 15:17-0500 Respiratory rate 16 /min Kyrie Lozano [employer] Work Phone: [facility] 04-04-2024 15:17-0500 SaO2% (BldA) [Mass fraction] 100 % Kyrie Lozano [employer] Work Phone: [facility] 04-04-2024 15:17-0500 Systolic blood pressure 126 mm[Hg] Kyrie Lozano [employer] Work Phone: [facility] 05-01-2023 16:10-0500 Body height [address] KEYANNA STEELE DO [facility] 05-01-2023 16:10-0500 Body temperature 96.98 [degF] DR KEYANNA STEELE DO [facility] 05-01-2023 16:10-0500 Body weight 63.[address] KEYANNA STEELE DO [facility] 05-01-2023 16:10-0500 Diastolic Blood Pressure Non-Invasive 80 mm[Hg] DR KEYANNA STEELE DO [facility] 05-01-2023 16:10-0500 Heart rate 90 /min DR KEYANNA STEELE DO [facility] 05-01-2023 16:10-0500 Respiratory rate 18 /min DR KEYANNA STEELE DO [facility] 05-01-2023 16:10-0500 Systolic Blood Pressure Non-Invasive 161 mm[Hg] DR KEYANNA STEELE DO [facility] Encounters Encounter Date Encounter Type Care Provider Facility Start: 12-13-2024 End: 12-13-2024 Admission to same day surgery center Dr. Pankaj Lou MD -[facility] Start: 12-13-2024 End: 12-13-2024 ambulatory Kyrie Lozano [employer] Facility:[facility] Start: 11-07-[address] Donny Martinez MD -[facility] Start: 11-07-2024 End: 11-07-[address] Mahad Villatoro DO -[facility] Work Phone: Start: 11-07-2024 End: 11-07-2024 ambulatory Kyrie Lozano [employer] Work Phone: -[facility] Start: 10-30-2024 End: 10-30-2024 ambulatory Kyrie Lozano [employer] Work Phone: -Cat Scan [facility] Start: 10-30-2024 End: 10-30-[address] Donny Martinez MD -Cat Scan [facility] Work Phone: Start: 10-30-[address] Donny Martinez MD -[facility] Start: 10-30-2024 End: 10-30-2024 ambulatory Kyrie Lozano [employer] Facility:[facility] Start: 08-12-2024 End: 08-12-[address] Mahad Villatoro DO [facility] Work Phone: Start: 08-12-2024 End: 08-12-2024 ambulatory Kyrie Lozano [employer] Facility:[facility] Start: 07-24-2024 End: 07-24-2024 Emergency department patient visit Kyrie Lozano [employer] Work Phone: -Emergency Department Work Phone: Start: 07-16-2024 Non-patient / Non-visit [facility] Work Phone: Start: 07-16-2024 ambulatory Mahad Villatoro Facility: [facility] Start: 07-16-[address] Donny Martinez MD -Radiation Oncology Start: 07-16-2024 End: 07-16-[address] [facility] Start: 07-16-2024 End: 07-16-2024 ambulatory Kyrie Lozano [employer] Facility:[facility] Start: 07-15-2024 End: 07-15-[address] Donny Martinez MD -[facility] Work Phone: Start: 07-15-2024 End: 07-15-2024 ambulatory Kyrie Lozano [employer] Facility:[facility] Start: 07-11-2024 End: 07-11-[address] [facility] Work Phone: Start: 07-11-2024 End: 07-11-2024 ambulatory Kyrie Lozano [employer] Facility:[facility] Start: 07-08-2024 End: 07-08-[address] Donny Martinez MD -[facility] Work Phone: Start: 07-08-2024 End: 07-08-2024 ambulatory Kyrie Lozano [employer] Facility:[facility] Start: 07-04-2024 End: 07-04-[address] [facility]: Start: 07-04-2024 End: 07-04-2024 ambulatory Kyrie Lozano [employer] Facility:[facility] Start: 07-01-2024 End: 07-01-[address] Donny Martinez MD -[facility] Work Phone: Start: 07-01-2024 End: 07-01-2024 ambulatory Kyrie Lozano [employer] Facility:[facility] Start: 06-26-2024 End: 06-26-[address] [facility] Start: 06-26-2024 End: 06-26-2024 ambulatory Mahad Villatoro Facility:[facility] Start: 06-24-2024 Non-patient / Non-visit Dr. Donny Ruiz MD -[facility] Start: 06-24-2024 End: 06-24-[address] Donny Martinez MD -[facility] Work Phone: Start: 06-24-2024 End: 06-24-2024 ambulatory Kyrie Lozano [employer] Facility:[facility] Start: 06-21-2024 ambulatory Kyrie Lozano [employer] Facility:[facility] Start: 06-21-2024 Non-patient / Non-visit Dr. Mahad Villatoro DO [facility] Start: 06-20-2024 ambulatory Kyrie Lozano [employer] Facility:[facility] Start: 06-20-2024 Non-patient / [facility] Start: 06-19-2024 End: 06-19-2024 Patient encounter procedure Shantel Norris NP- -[facility] Work Phone: Start: 06-19-2024 End: 06-19-2024 ambulatory Kyrie Lozano [employer] Facility:[facility] Start: 06-17-2024 ambulatory Kyrie Lozano [employer] Facility:[facility] Start: 06-17-2024 Non-patient / [facility] Start: 06-14-2024 ambulatory Kyrie Lozano [employer] Facility:[facility] Start: 06-14-2024 Non-patient / Non-visit Dr. Buddy Mccallum MD -[facility] Start: 06-14-2024 End: 06-14-2024 Admission to same day surgery center Dr. Buddy Mccallum MD -[facility] Start: 06-14-2024 End: 06-14-2024 ambulatory Kyrie Lozano [employer] Facility:[facility] Start: 06-12-2024 End: 06-12-2024 Patient encounter procedure Alvaro Mendieta Research Coordinator Urology Comment on above: Malignant neoplasm o f overlapping sites of bladder (HCC) (Primary Dx) Start: 06-11-2024 End: 06-11-2024 Patient encounter procedure Roel Barrios MD Work Phone: Urology Comment on above: Malignant neoplasm o f overlapping sites of bladder (HCC) (Primary Dx); History of bladder cancer; Occupational exposure to other risk factors Start: 06-11-2024 End: 06-14-2024 ambulatory Roel Barrios MD Work Phone: Urology Start: 06-10-2024 End: 06-10-[address] Buddy Mccallum MD -[facility] Work Phone: Start: 06-10-2024 End: 06-10-2024 ambulatory Kyrie Lozano [employer] Facility:[facility] Start: 05-24-2024 End: 05-24-[address] Mahad Villatoro DO -[facility] Work Phone: Start: 05-24-2024 End: 05-24-2024 ambulatory Kyrie Lozano [employer] Facility:[facility] Start: 05-21-2024 End: 05-21-[address] Jules Fuentes MD -[facility] Work Phone: Start: 05-21-2024 End: 05-21-2024 ambulatory Kyrie Lozano [employer] Facility:[facility] Start: 05-10-2024 Non-patient / Non-visit Dr. Young Samuels DO -[facility] Start: 05-10-2024 End: 05-10-2024 Admission to same day surgery center Dr. Young Samuels DO -Endoscopy Work Phone: Start: 05-10-2024 End: 05-10-2024 ambulatory Kyrie Lozano [employer] Facility:[facility] Start: 05-08-2024 ambulatory Kyrie Lozano [employer] Facility:[facility] Start: 05-08-2024 Non-patient / Non-visit Dr. Young Samuels DO -[facility] Start: 04-30-2024 End: 04-30-[address] Young Samuels DO -[facility] Work Phone: Start: 04-30-2024 End: 04-30-2024 ambulatory Kyrie Lozano [employer] Facility:[facility] Start: 04-30-2024 End: 04-30-2024 ambulatory Kyrie Lozano [employer] Facility:[facility] Start: 04-25-2024 End: 04-25-[address] Donny Martinez MD -[facility] Work Phone: Start: 04-25-2024 End: 04-25-2024 ambulatory Kyrie Lozano [employer] Facility:[facility] Start: 2024 End: [address] Donny Martinez MD -[facility] Work Phone: Start: 2024 End: 2024 ambulatory Kyrie Lozano [employer] Facility:[facility] Start: 04-11-2024 End: 04-11-[address] Donny Martinez MD -[facility] Work Phone: Start: 04-11-2024 End: 04-11-2024 ambulatory Kyrie Lozano [employer] Facility:[facility] Start: 04-04-2024 End: 04-04-[address] Donny Martinez MD -[facility] Work Phone: Start: 04-04-2024 End: 04-04-2024 ambulatory Kyrie Lozano [employer] Facility:[facility] Start: 03-20-2024 ambulatory Kyrie Lozano [employer] Facility:[facility] Start: 03-13-2024 End: 03-13-2024 ambulatory Kyrie Lozano [employer] Facility:[facility] Start: 01-31-2024 End: 02-01-2024 ambulatory Kyrie Wallacepkins [employer] Facility:[facility] Start: 01-31-2024 End: 01-31-2024 ambulatory Kyrie Lozano [employer] Facility:[facility] Start: 01-08-2024 End: 01-08-2024 ambulatory KYRIE LOZANO [employer] Facility:[facility] Start: 01-08-2024 End: 01-08-2024 Patient encounter procedure KYRIE LOZANO [employer] - [employer] [facility] Start: 12-29-2023 End: 12-29-2023 ambulatory KYRIE LOZANO [employer] - [employer] Facility:[facility] Start: 12-29-2023 End: 12-29-2023 Patient encounter procedure KYRIE LOZANO [employer] - [employer] [facility] Start: 12-26-2023 End: 12-30-2023 ambulatory KYRIE LOZANO [employer] - [employer] Facility:[facility] Start: 12-26-2023 End: 12-30-2023 Outreach Lab KYRIE LOZANO [employer] - [employer] [facility] Start: 05-01-2023 End: 05-01-2023 Emergency department patient visit DR KEYANNA STEELE DO [facility] Procedures Date Procedure Procedure Detail Performing Clinician Start: 12-13-2024 [place] operation, litholapaxy Kyrie Wallacepkins [employer] Work Phone: Start: 12-13-2024 Transurethral resect ion of bladder neoplasm Kyrie Lozano [employer] Work Phone: Start: 11-07-2024 Procedure Kyrie Wily anitamichael [employer] Work Phone: Start: 10-30-2024 CT of thorax, abdome n and pelvis with contrast Kyrie Lozano [employer] Work Phone: Start: 10-30-2024 Estimated creatinine clearance Kyrie Lozano [employer] Work Phone: Start: 08-12-2024 Urnls dip stick/tabl et reagent auto microscopy Kyrie Lozano [employer] Work Phone: Start: 08-12-2024 Serum inorganic phos phate measurement Kyrie Lozano [employer] Work Phone: Start: 07-24-2024 X-ray of chest, PA a nd lateral views Kyrie Lozano [employer] Work Phone: Start: 07-24-2024 Estimated creatinine clearance Kyrie Lozano [employer] Work Phone: Start: 07-24-2024 Urnls dip stick/tabl et reagent auto microscopy Kyrie Lozano [employer] Work Phone: Start: 07-24-2024 Blood culture Kyrie gordon [employer] Work Phone: Start: 07-24-2024 SARS-CoV-2, Influenz a & RSV (PCR) Kyrie Lozano [employer] Work Phone: Start: 07-24-2024 Urine culture Kyrie gordon [employer] Work Phone: Start: 06-17-2024 Creatinine blood Mukul Lozano [employer] Work Phone: Start: 06-14-2024 Plain chest X-ray Bertha spence Marta [employer] Work Phone: Start: 06-14-2024 Fluoroscopic guidance Yara denny Lozano [employer] Work Phone: Start: 04-23-2024 Positron emission tomography with computed tomography Kyrie Lozano [employer] Work Phone: Start: 04-11-2024 CT of thorax, abdome n and pelvis with contrast Kyrie Lozano [employer] Work Phone: Start: 04-04-2024 Measurement of renal function Kyrie Lozano [employer] Work Phone: Comment on above: GFR Calc Start: 04-04-2024 Procedure Kyrie sparks [employer] Work Phone: Plan of Treatment Date Care Activity Detail Author Start: 2030 RSV Vaccine (1 - 1-d ose 75+ series) RSV Vaccine (1 - 1-dose 75+ series) [facility] Start: 01-02-2027 Screening for malign ant neoplasm of colon [facility] Start: 12-13-2024 Ambulation without limitation [facility] Start: 12-13-2024 Medical regimen orde rs management [facility] Start: 12-13-2024 Medication education [facility] Start: 12-13-2024 End: 12-13-2024 Patient discharge [facility] Start: 12-13-2024 Taking patient vital signs [facility] Start: 12-13-2024 [facility] Start: 10-30-2024 Venous catheter care management [facility] Start: 07-24-2024 [facility] Start: 07-24-2024 End: 07-24-2024 [facility] Start: 07-24-2024 [facility] Start: 07-24-2024 Bacteria identified in Blood by Culture Blood Culture [facility] Start: 07-24-2024 Bacteria identified in Urine by Culture Urine Culture [facility] Start: 06-24-2024 Venous catheter care management [facility] Start: 06-14-2024 Anesthesia access central venous circulation ANESTH VASCULAR ACCESS [facility] Start: 06-14-2024 Insj tunneled ctr va d w/subq port age 5 yr/> INSERT TUNNELED CV CATH [facility] Start: 06-14-2024 Patient discharge [facility] Start: 05-24-2024 Patient referral [facility] Work Phone: Start: 05-10-2024 Anesthesia closed ch est w/bronchoscopy nos ANESTH CHEST PROCEDURE [facility] Start: 05-10-2024 [facility] ebus guided sampl 3/> node station/strux BRONCH EBUS SAMPLNG 3/> NODE [facility] Start: 05-10-2024 Patient discharge [facility] Start: 04-25-2024 Patient referral [facility] Work Phone: Start: 04-17-2024 Advance Directive Discussion Advance Directive Discussion [facility] Start: 12-17-2023 Covid-19 Vaccine ( season) Covid-19 Vaccine ( season) [facility] Start: 12-17-2023 Influenza vaccination Influenza Vacc ine (#1) [facility] Start: 2005 Pneumococcal Vaccine : 50+ (1 of 1 - PCV) Pneumococcal Vaccine: 50+ (1 of 1 - PCV) [facility] Start: 2005 Shingrix Vaccine (1 of 2) Shingrix Vaccine (1 of 2) [facility] Start: 2000 Diabetes Screening Diabetes Screenin g [facility] Start: 2000 Screening for malign ant neoplasm of colon [facility] Start: 1990 Lipid panel Lipid Screening [facility] Start: 1974 Urine microalbumin profile DTaP,Tdap,Td Vaccine (1 - Tdap) [facility] Start: 1973 Anxiety Screening Anxiety Screening [facility] Start: 1973 Depression Screening Depression Scre ening [facility] Start: 1973 Hepatitis C [facility] CBC W Auto Different ial panel - Blood [facility] Comprehensive metabo lic 2000 panel - Serum or Plasma [facility] CT Abdomen and Pelvi s W contrast IV [facility] CT Abdomen and Pelvi s W contrast IV [facility] Lactate dehydrogenas e measurement [facility] Magnesium measurement [facility] Microscopic observat ion [Identifier] in Body fluid by Cyto stain [facility] Patient Education ED Fever Contr ol (Adult) [facility] Work Phone: Patient referral [facility] Work Phone: Positron emission tomography with computed tomography [facility] Serum inorganic phosphate measurement [facility] UA DIP, URINE (POC) UA DIP, URIN E (POC) Lab Routine Screening for genitourinary condition 1 Occurrences starting 06/11/2024 [facility] Work Phone: Comment on above: 1 Occurrences starti ng 06/11/2024 Urinalysis complete panel - Urine [facility] Urine culture [facility] Payers Date Payer Category Payer Private Health Insurance [place] [employer] [id number] 2024 Self-pay 2023 Medicare [id number] 2023 Unknown [id number] 2023 Unknown [id number] 2020 Medicare [id number] 1955 Unknown [id number] 2.16840.1.289999.3.579 .2.627 1955 Unknown [id number] .840.1.947202.3.579 .2.627 1955 Unknown [id number] 2.840.1.726920.3.579 .2.627 1955 Unknown [id number] 2.16840.1.795676.3.579 .2.627 Unknown [id number] 2.16840.1.029808.3.579 .2.462 Unknown [id number] 2.16840.1.689105.3.579 .2.462 Unknown [id number] 2.16840.1.084098.3.579 .2.462 Unknown [id number] 2.16840.1.660216.3.579 .2.462 Unknown [id number] 2.16840.1.247410.3.579 .2.462 Unknown [id number] 2.16840.1.735198.3.579 .2.462 Unknown [id number] 2.16.840.1.655016.3.579 .2.462 Unknown [id number] 2.16840.1.788678.3.579 .2.462 Unknown [id number] 2.16840.1.009936.3.579 .2.462 Unknown [id number] 2.16.840.1.350557.3.579 .2.462 Unknown [id number] 2.16.840.1.351965.3.579 .2.462 Unknown [id number] 2.16.840.1.574284.3.579 .2.462 Unknown [id number] 2.16.840.1.085582.3.579 .2.462 Unknown [id number] 2.16.840.1.995285.3.579 .2.462 Unknown [id number] 2.16.840.1.854454.3.579 .2.462 Unknown [id number] 2.16.840.1.462562.3.579 .2.462 Unknown [id number] 2.16840.1.381373.3.579 .2.462 Unknown [id number] 2..840.1.165330.3.579 .2.462 Unknown [id number] 2.16.840.1.837610.3.579 .2.462 Unknown [id number] 2.16.840.1.527978.3.579 .2.462 Unknown [id number] 2.16.840.1.522497.3.579 .2.462 Unknown [id number] 2.16.840.1.828158.3.579 .2.462 Unknown [id number] 2..840.1.923086.3.579 .2.462 Unknown [id number] 2.16.840.1.400666.3.579 .2.462 Unknown [id number] 2.16.840.1.366078.3.579 .2.462 Unknown [id number] 2.16.840.1.630841.3.579 .2.462 Unknown [id number] 2.16.840.1.652531.3.579 .2.462 Unknown [id number] 2.16.840.1.581487.3.579 .2.462 Unknown [id number] 2.16.840.1.558860.3.579 .2.462 Unknown [id number] 2.16.840.1.784178.3.579 .2.462 Unknown [id number] 2.16.840.1.636809.3.579 .2.462 Unknown [id number] 2.16.840.1.003958.3.579 .2.462 Unknown [id number] 2.16.840.1.725044.3.579 .2.462 Unknown [id number] 2.16.840.1.927136.3.579 .2.462 Unknown [id number] 2.16.840.1.497314.3.579 .2.462 Unknown [id number] 2.16.840.1.618527.3.579 .2.462 Unknown [id number] 2.16.840.1.525363.3.579 .2.462 Unknown [id number] 2.16.840.1.686125.3.579 .2.462 Unknown [id number] 2.16.840.1.811966.3.579 .2.462 Unknown [id number] 2.16.840.1.923880.3.579 .2.462 Social History Date Type Detail Facility Start: 05-01-2023 End: 12-02-2024 Tobacco smoking status Never smoked tobacco (finding) [facility] Sex Assigned At Sex [facility] smoking consumption unknown [facility] Start: 06-11-2024 History of Social function [facility] Start: 06-11-2024 Area Deprivation Index [facility] National Score (1-10 0), lower number is lower risk 47 [facility] Start: 1955 Sex assigned at Not on file [facility] Start: 07-24-2024 Sex Male (finding) [facility] Start: 1955 Sex Assigned At Male W [facility] Medical Equipment Procedure Code Equipment Code Equipment Origin al Text Equipment Identifier Dates Insertion, vascular access port ([id number]) Vascular port/catheter ([id number] FDA Start: 06-14-2024 Goals Date Patient Goal Desired Activity /State Functional Status Date Assessment Result Facility 05-01-2023 Functional Status Up ad maxim [facility] spital [facility] 05-01-2023 Functional Status Standard Safet y ID band on, Call device within reach, Bed in low position, Wheels locked [facility] Mental Status Date Assessment Result Facility 12-13-2024 Cognitive function Voice/Name [facility] Work Phone: 07-24-2024 Cognitive function Level Of Cons ciousness Awake;Alert;Appropriate;Follow s Commands [facility] Work Phone: 06-14-2024 Cognitive function Voice/Name [facility] Work Phone: 05-10-2024 Cognitive function Level Of Consciousness Sedated [facility] Work Phone: 05-10-2024 Cognitive function Arousable To Voice/Nam e [facility] Work Phone: 05-01-2023 Mental Status Orientation Oriented x 4 [facility] Clinical Notes 05-01-2023 to 12-13-2024 Note Date & Type Note Facility 12-13-2024 Discharge summary Note Date/Time December 13, 2024 1:03pm [facility] Medical Records Department [address] [place] [address] Instructions for Home/Discharge Instructions 12/13/24 1302 MR#: [id number] Acct: [id number] Name: BETHANY ROJAS Rep #:[id number] 5 : 1955 69 From: Pankaj Lou MD PCP: Kyrie Lozano, LYNDA-C Sta tus:REG SDC Discharge Instructions DC O2, CPAP, BIPAP needs Home O2 Discharge instructions: No Dressing / Incision Discharge Activity: No Restrictions, May Not Drive and May Shower Return to work on:: 01/10/25 May shower in (days): 2 Dressing / Incision Call your doctor if your incision/area has: Sudden Increased Bleeding Call your doctor if you observe: Fever of 101 or Higher and Uncontrolled pain Cleanse incision/area with: Soap & Water Catheter: Fung to leg bag and Fung to large bag Drain: [place] Follow Up [facility] Test Results: Test results from this visit will be discussed in further detail at your follow-up appointment, if applicable. Discharge Plan Admission Attending Provider: Pankaj Lou Primary Care Provider: Kyrie Lozano NP Instructions Print Language: Marshallese Discharge Orders/Prescriptions Prescriptions: No Action prochlorperazine maleate 10 mg tablet 10 mg PO Q6H PRN (Reason: nausea and vomiting) Qty: 30 2RF ondansetron 8 mg tablet,disintegrating 8 mg PO Q8H PRN (Reason: nausea and vomiting) Qty: 30 2RF lidocaine-prilocaine 2.5-2.5 % cream 1 applic topical ONCE PRN (Reason: port access) 30 Days Qty: 30 2RF Referrals / Follow Up: Kyrie Lozano NP, [facility] [Primary Care Provider] - Disposition Disposition (needs filled in before D/C Order can be placed): Home, Self Care 12/13/24 1303<Electronically signed by Pankaj Lou MD>Pankaj Lou MD CC: [facility] Kyrie Lozano ~ Signed [facility] Work Phone: 1(720) 864-374108-29-2025 Discharge summary Author Pankaj Lou [facility] Note Date/Time December 13, 2024 1: 03pm [facility] Medical Records Department [address] [place] [address] Instructions for Home/Discharge Instructions 12/13/24 1303 MR#: [id number] Acct: [id number] Name: BETHANY ROJAS Rep #:[id number] 7 : 1955 69 From: Pankaj Lou MD PCP: HARSHAL Durant Sta tus:REG SDC Discharge Instructions DC O2, CPAP, BIPAP needs Home O2 Discharge instructions: No Dressing / Incision Discharge Activity: Return to Normal Activity and May Not Drive (while taking narcotic pain medications.) Return to work on:: 01/10/25August shower in (days): 2 Dressing / Incision Call your doctor if your incision/area has: Sudden Increased Bleeding Call your doctor if you observe: Fever of 101 or Higher and Uncontrolled pain Cleanse incision/area with: Soap & Water Catheter: Fung to leg bag and Fung to large bag Drain: [place] Follow Up Care Please Follow Up With: Pankaj Lou MD When: Call [phone] for an appointment Test Results: Test results from this visit will be discussed in further detail at your follow- up appointment, if applicable. Discharge Plan Admission Attending Provider: Pankaj Lou Primary Care Provider: Kyrie Lozano NP Instructions Print Language: Marshallese Discharge Orders/Prescriptions Prescriptions: No Action prochlorperazine maleate 10 mg tablet 10 mg PO Q6H PRN (Reason: nausea and vomiting) Qty: 30 2RF ondansetron 8 mg tablet,disintegrating 8 mg PO Q8H PRN (Reason: nausea and vomiting) Qty: 30 2RF lidocaine-prilocaine 2.5-2.5 % cream 1 applic topical ONCE PRN (Reason: port access) 30 Days Qty: 30 2RF Referrals / Follow Up: Kyrie Lozano NP, [facility] [Primary Care Provider] - Disposition Disposition (needs filled in before D/C Order can be placed): Home, Self Care 12/13/24 1303<Electronically signed by Pankaj Lou MD>Pankaj Lou MD CC: [facility]-C Kyrie Lozano ~ Signed [facility] Work Phone: 1(317) 906-495708-29-2025 Discharge summary [facility] Medical Records Department [address] [place] [address] Instructions for Home/Discharge Instructions 12/13/24 1302 MR#: [id number] Acct: [id number] Name: BETHANY ROJAS Rep #:[id number] 5 : 1955 69 From: Pankaj Lou MD PCP: HARSHAL Durant Sta tus:REG SDC Discharge Instructions DC O2, CPAP, BIPAP needs Home O2 Discharge instructions: No Dressing / Incision Discharge Activity: No Restrictions, May Not Drive and May Shower Return to work on:: 01/10/25 May shower in (days): 2 Dressing / Incision Call your doctor if your incision/area has: Sudden Increased Bleeding Call your doctor if you observe: Fever of 101 or Higher and Uncontrolled pain Cleanse incision/area with: Soap & Water Catheter: Fung to leg bag and Fung to large bag Drain: [place] Follow Up Care Test Results: Test results from this visit will be discussed in further detail at your follow- up appointment, if applicable. Discharge Plan Admission Attending Provider: Pankaj Lou Primary Care Provider: Kyrie Lozano NP Instructions Print Language: Marshallese Discharge Orders/Prescriptions Prescriptions: No Action prochlorperazine maleate 10 mg tablet 10 mg PO Q6H PRN (Reason: nausea and vomiting) Qty: 30 2RF ondansetron 8 mg tablet,disintegrating 8 mg PO Q8H PRN (Reason: nausea and vomiting) Qty: 30 2RF lidocaine-prilocaine 2.5-2.5 % cream 1 applic topical ONCE PRN (Reason: port access) 30 Days Qty: 30 2RF Referrals / Follow Up: Kyrie Lozano NP, [facility] [Primary Care Provider] - Disposition Disposition (needs filled in before D/C Order can be placed): Home, Self Care 12/13/24 1303Pankaj Lou MD CC: ANTONIOC Kyrie Lozano ~ Signed [facility]08-29-2025 Discharge summary [facility] Medical Records Department [address] [place] [address] Instructions for Home/Discharge Instructions 12/13/24 1303 MR#: [id number] Acct: [id number] Name: BETHANY ROJAS Rep #:[id number] 7 : 1955 69 From: Pankaj Lou MD PCP: HARSHAL Durant Sta tus:REG SDC Discharge Instructions DC O2, CPAP, BIPAP needs Home O2 Discharge instructions: No Dressing / Incision Discharge Activity: Return to Normal Activity and May Not Drive (while taking narcotic pain medications.) Return to work on:: 01/10/25 May shower in (days): 2 Dressing / Incision Call your doctor if your incision/area has: Sudden Increased Bleeding Call your doctor if you observe: Fever of 101 or Higher and Uncontrolled pain Cleanse incision/area with: Soap & Water Catheter: Fung to leg bag and Fung to large bag Drain: [place] Follow Up Care Please Follow Up With: Pankaj Lou MD When: Call [phone] for an appointment Test Results: Test results from this visit will be discussed in further detail at your follow- up appointment, if applicable. Discharge Plan Admission Attending Provider: Pankaj Lou Primary Care Provider: Kyrie Lozano NP Instructions Print Language: Marshallese Discharge Orders/Prescriptions Prescriptions: No Action prochlorperazine maleate 10 mg tablet 10 mg PO Q6H PRN (Reason: nausea and vomiting) Qty: 30 2RF ondansetron 8 mg tablet,disintegrating 8 mg PO Q8H PRN (Reason: nausea and vomiting) Qty: 30 2RF lidocaine-prilocaine 2.5-2.5 % cream 1 applic topical ONCE PRN (Reason: port access) 30 Days Qty: 30 2RF Referrals / Follow Up: Kyrie Lozano NP, [facility] [Primary Care Provider] - Disposition Disposition (needs filled in before D/C Order can be placed): Home, Self Care 12/13/24 1303Pankaj Lou MD CC: [facility]UNCHER-C Kyrie Lozano ~ Signed [facility]08-29-2025 Procedure note [facility] Medical Records Department [address] [place] [address] Operative Report 12/13/24 1259 MR#: [id number] Acct: [id number] Name: BETHANY ROJAS Rep #:[id number] 3 : 1955 69 From: Pankaj Lou MD PCP: HARSHAL Durant [facility] tus:[facility] Location: [place] [address] Operative Report (Standard) Operative Information Date of Procedure: 12/13/24 Pre-Operative Diagnosis: Invasive bladder cancer Post-Operative Diagnosis: Resection of bladder mass Surgery/Procedure Performed: Cystoscopy and laser of a large bladder stone greater than 3 cm in size, transurethral resection of a very large bladder mass greater than 5 cm in size speech language pathology assistant: No Type of Anesthesia: General RN Documented Start/Stop Times: Operation Date: 12/13/24 12:25 Case Time Into Pre-Op 12/13/24 10:16 Out of Pre-Op 12/13/24 12:15 Anesthesia Start 12/13/24 12:20 Into Room 12/13/24 12:20 Procedure Start 12/13/24 12:36 Procedure End 12/13/24 12:59 Procedure Start Time: 12:36 Procedure Stop Time: 12:59 Select all DRAINS/GRAFTS/IMPLANTS that apply: Drains Drain details: 20 Persian Fung Estimated Blood Loss: Minimal Specimen collected: Yes Description of specimen(s) removed: Necrotic bladder tissue and bladder stones Description of surgery: Indication is a 69-year-old male was found to have invasive bladder cancer and he decided to have radiation therapy and chemotherapy to treat this cancer he was having a lot of symptoms and discomfort so did a cystoscopy in the office and it shows a large necrotic mass in the back of the bladder with lots of stonestuck in the bladder so can take him to surgery today lasered off the bladder stonesand resect his necrotic mass Patient was taken back to the operating room after smooth induction of anesthesia he was placed in dorsolithotomy position penis and testicles were prepped and draped in usual sterile fashion went into the bladder with a 26 Frenchcontinuous-flow Olympus bipolar resectoscope I then used a laser bridge right inthe back of the bladder there was a large necrotic mass and on top of the mass it was allcovered with dystrophic calcifications or throughout the mass I used the laser to break up the bladder stone mass and this broke the stones up into little tiny pieces got all this flushed out and then I switched over to the resectoscope and started resecting this mass part to be a hard mass that was necrotic as there was resecting it resected really deep into the bladder. Afterresection was done I got as much of the hard masses I could get out of the possible we sent out the specimen is possible is just all necrotic tissue after radiation, Fung catheter was put into the bladder for direct gravity drainage he will need a catheter for 2 weeks to let the bladder heal up patient is anesthetic was reversed is taken back to the PACU in good condition and will go home with antibiotics and pain medicine for 2 weeks. Surgical Findings: Large bladder stones attached to necrotic tissue in the back of the bladder Complications Complications: No Admit VTE Documentation VTE Present on Admission: No VTE Mechan Device Prophylaxis: SCD's VTE Pharm Prophylaxis ordered?: No 12/13/24 1302 Cosigner Signature (if applicable): CC: HARSHAL Lozano; Dr. Pankaj Lou MD~ Signed [facility]08-29-2025 Consult note Author Jayson Mckinney [facility] Note Date/Time December 13, 2024 10 :35am [facility] Medical Records Department [address] [place] [address] Pre-Anesthesia Evaluation 12/13/24 1035 MR#: [id number] Acct: [id number] Name: BETHANY ROJAS Rep #:[id number] 7 : 1955 69 From: Jayson Mckinney MD PCP: HARSHAL Durant Sta tus:REG SDC Y Race: C Location: [place] [address] ASA Classification* ASA Classification ASA Classification: 2 Assessment & Plan Anesthesia* Anesthesia Assessment Anesthesia Assessment: Discussed sedation and/or anesthesia options, risks, benefits, and alternatives with patient/parents/legal guardian/POA. Questions invited. The patient/parents/legal guardian/POA seems to understand and agrees to proceedwith anesthesia plan. Reviewed the physical assessment, medical history, allergy history and patient home medications list prior to surgery/procedure/anesthetic and documented any changes. Performed airway and anesthesia risk assessments. Anesthesia Type Anesthesia Type: General Anesthesia Focused Assessment* Airway Assessment Mouth opens: >3 cm Mallampati Score: II Labs Anesthesia Preop lab: CBC WBC 2.9 K/mm3 (4.4-11.0) L 10/30/24 07:45 10/30/24 RBC 4.14 M/mm3 (4.6-6.2) L 10/30/24 07:45 10/30/24 Hgb 13.6 g/dL (13.0-16.5) 10/30/24 07:45 10/30/24 Hct 37.8 % (40-54) L 10/30/24 07:45 10/30/24 Plt Count 157 K/mm3 (150-450) 10/30/24 07:45 10/30/24 CHEMISTRY Potassium 4.0 mmol/L (3.3-5.1) 10/30/24 07:45 10/30/24 Sodium 138 mmol/L (133-145) 10/30/24 07:45 10/30/24 Magnesium 2.1 mg/dL (1.5-2.2) 08/12/24 09:38 08/12/24 Phosphorus 2.6 mg/dL (2.7-4.5) L 08/12/24 09:38 08/12/24 BUN 19 mg/dL (4-19) 10/30/24 07:45 10/30/24 Creatinine 1.01 mg/dL (0.70-1.20) 10/30/24 07:45 10/30/24 Glucose 99 mg/dL (70-99) 10/30/24 07:45 10/30/24 COAG PT 14.2 SECONDS (11.7-14.9) 07/24/24 19:25 Pre-Assessment Diagnosis/Proposed Procedure Planned Operative Procedure(s): Cysto,Litholapaxy,Laser 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 - inspector fuel hose: 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 - inspector fuel hose Hx Hospitalization Yes: 01/2024 POSTOP BLADDER 12/02/24 14:16 SURG Any Problems With Anesthesia No 12/02/24 14:16 Cholinesterase deficiency No 12/02/24 14:16 You/Your Family Experience No 12/02/24 14:16 fever (hyperthermia) with Relationship Recent Exposure to Contagious No 06/14/24 06:25 Disease Does patient have nerve No 12/02/24 14:16 stimulator Patient instructed to have device shut off --Does patient have Pacemaker or ICD? When Was Last Pacemaker Check QUESTION #4 FULL TEXT: You/Your Family Experience fever (hyperthermia) with Anesthesia Last Oral Intake Last Oral intake: Last Oral Intake NPO since Meds taken in AM with sips of water? Meds patient instructed to take am of surgery PONV PONV - inspector fuel hose: PONV - inspector fuel hose Female No 12/02/24 14:16 HX of Motion Sickness Yes 12/02/24 14:16 HX of N/V After Surgery No 12/02/24 14:16 Non-Smoker Yes 12/02/24 14:16 Duration of Surgery greater Yes 12/02/24 14:16 than 60 minutes Number of Risk Factors 3 12/02/24 14:16 PONV Score Moderate Risk 12/02/24 14:16 Height & Weight Height & Weight: Anesthesia: Height & Weight Height 5 ft 5 in 11/07/24 08:26 Respiratory Assessment Respiratory Assessment - inspector fuel hose: Respiratory Tract Infection Hx - inspector fuel hose Hx Respiratory Tract Infection No 12/02/24 14:16 STOP Sleep Apnea STOP Sleep Apnea - inspector fuel hose: STOP Sleep Apnea - inspector fuel hose Hx Hypertension No 12/02/24 14:16 Hx Sleep Apnea No 12/02/24 14:16 CPAP No 12/02/24 14:16 BIPAP Do you snore loudly (louder Yes 12/02/24 14:16 than talking or can be heard Do you often feel tired/ No 12/02/24 14:16 fatigued/ sleepy during daytime? Has anyone observed you stop No 12/02/24 14:16 breathing during sleep? STOP Results Negative 12/02/24 14:16 QUESTION #5 FULL TEXT : Do you snore loudly (louder than talking or can be heard through closed doors)? 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 Specify any problems Hx of Preganancy in last 3 N/A 12/02/24 14:16 Months Nurse Filling Out Transfusion MGRIFFITH 12/02/24 14:16 & Questions: Date: 12/02/24 12/02/24 14:16 Time: 14:18 12/02/24 14:16 Patient unable to answer at this time (ie. confused, unrespo /Reproduction History /Reproductive History - inspector fuel hose: /Reproductive Hx- inspector fuel hose Hx Now No 12/02/24 14:16 Gestational Age (in weeks): EDC: Hx Hx Para Hx Section SAB No 06/12/24 15:10 Active Medications Active Medications: Current Medications Generic Name Dose Route Start Last Admin Trade Name Freq PRN Reason Stop Dose Admin Cefazolin Sodium 2 gm/ Sodium 110 mls @ 200 mls/hr 12/13/24 12:25 Chloride IV 12/13/24 12:57 INTRAOP ONE Lactated Ringer's 1,000 mls @ 15 mls/hr 12/13/24 10:30 IV .Q48H ALONDRA PFSH Medical History Cancer Mediastinal lymphadenopathy Loss of hearing Wears glasses Gout Bladder disease Injury of head and neck Leg cramps Non-smoker Home Medications ?Medication ?Instructions ?Recorded ?Last Taken ?Type lidocaine-prilocaine 2.5 %-2.5 % 1 applic topical ONCE PRN port 06/19/24 Unknown Rx topical cream access 30 days #30 grams ondansetron 8 mg disintegrating 8 mg PO Q8H PRN nausea and 06/19/24 Unknown Rx tablet vomiting #30 tabs prochlorperazine maleate 10 mg 10 mg PO Q6H PRN nausea and 06/19/24 Unknown Rx tablet vomiting #30 tabs Allergy/AdvReac Type Severity Reaction Status Date / Time No Known Allergies Allergy Verified 12/13/24 10:33 Family History Sister Cancer Mother Cancer Surgical History (Updated 12/02/24 @ 14:15 by Laura Davison) History of insertion of central venous access port Hx of surgical procedure History of transurethral resection of bladder tumor (TURBT) Hx of peritonsillar abscess drainage Hx of tonsillectomy Social History Smoking Status: Never smoker alcohol intake: never substance use type: does not use seatbelt use: always do you feel safe at home: Yes Review of Systems (Anesthesia) ROS Narrative System reviewed and no additional complaints, except as documented. 12/13/24 1035 <Electronically signed by Jayson Mckinney MD> Date _ Jayson Mckinney MD Cosigner Signature: Date CC: ~ Signed [facility] Work Phone: [phone] Consult note [facility] Medical Records Department [address] [place] [address] Pre-Anesthesia Evaluation 12/13/24 1035 MR#: [id number] Acct: [id number] Name: BETHANY ROJAS Rep #:[id number] : 1955 69 From: Jayson Mckinney MD PCP: Kyrie Lozano, ANTONIOC [place] [facility] [place] Race: C Location: [place] [address] ASA Classification* ASA Classification ASA Classification: 2 Assessment & Plan Anesthesia* Anesthesia Assessment Anesthesia Assessment: Discussed sedation and/or anesthesia options, risks, benefits, and alternatives with patient/parents/legal guardian/POA. Questions invited. The patient/parents/legal guardian/POA seems to understand and agrees to proceedwith anesthesia plan. Reviewed the physical assessment, medical history, allergy history and patient home medications list prior to surgery/procedure/anesthetic and documented any changes. Performed airway and anesthesia risk assessments. Anesthesia Type Anesthesia Type: General Anesthesia Focused Assessment* Airway Assessment Mouth opens: >3 cm Mallampati Score: II Labs Anesthesia Preop lab: CBC WBC 2.9 K/mm3 (4.4-11.0) L 10/30/24 07:45 10/30/24 RBC 4.14 M/mm3 (4.6-6.2) L 10/30/24 07:45 10/30/24 Hgb 13.6 g/dL (13.0-16.5) 10/30/24 07:45 10/30/24 Hct 37.8 % (40-54) L 10/30/24 07:45 10/30/24 Plt Count 157 K/mm3 (150-450) 10/30/24 07:45 10/30/24 CHEMISTRY Potassium 4.0 mmol/L (3.3-5.1) 10/30/24 07:45 10/30/24 Sodium 138 mmol/L (133-145) 10/30/24 07:45 10/30/24 Magnesium 2.1 mg/dL (1.5-2.2) 08/12/24 09:38 08/12/24 Phosphorus 2.6 mg/dL (2.7-4.5) L 08/12/24 09:38 08/12/24 BUN 19 mg/dL (4-19) 10/30/24 07:45 10/30/24 Creatinine 1.01 mg/dL (0.70-1.20) 10/30/24 07:45 10/30/24 Glucose 99 mg/dL (70-99) 10/30/24 07:45 10/30/24 COAG PT 14.2 SECONDS (11.7-14.9) 07/24/24 19:25 Pre-Assessment Diagnosis/Proposed Procedure Planned Operative Procedure(s): Cysto,Litholapaxy,Laser 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 - inspector fuel hose: 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 - inspector fuel hose Hx Hospitalization Yes: 01/2024 POSTOP BLADDER 12/02/24 14:16 SURG Any Problems With Anesthesia No 12/02/24 14:16 Cholinesterase deficiency No 12/02/24 14:16 You/Your Family Experience No 12/02/24 14:16 fever (hyperthermia) with Relationship Recent Exposure to Contagious No 06/14/24 06:25 Disease Does patient have nerve No 12/02/24 14:16 stimulator Patient instructed to have device shut off --Does patient have Pacemaker or ICD? When Was Last Pacemaker Check QUESTION #4 FULL TEXT: You/Your Family Experience fever (hyperthermia) with Anesthesia Last Oral Intake Last Oral intake: Last Oral Intake NPO since Meds taken in AM with sips of water? Meds patient instructed to take am of surgery PONV PONV - inspector fuel hose: PONV - inspector fuel hose Female No 12/02/24 14:16 HX of Motion Sickness Yes 12/02/24 14:16 HX of N/V After Surgery No 12/02/24 14:16 Non-Smoker Yes 12/02/24 14:16 Duration of Surgery greater Yes 12/02/24 14:16 than 60 minutes Number of Risk Factors 3 12/02/24 14:16 PONV Score Moderate Risk 12/02/24 14:16 Height & Weight Height & Weight: Anesthesia: Height & Weight Height 5 ft 5 in 11/07/24 08:26 Respiratory Assessment Respiratory Assessment - inspector fuel hose: Respiratory Tract Infection Hx - inspector fuel hose Hx Respiratory Tract Infection No 12/02/24 14:16 STOP Sleep Apnea STOP Sleep Apnea - inspector fuel hose: STOP Sleep Apnea - inspector fuel hose Hx Hypertension No 12/02/24 14:16 Hx Sleep Apnea No 12/02/24 14:16 CPAP No 12/02/24 14:16 BIPAP Do you snore loudly (louder Yes 12/02/24 14:16 than talking or can be heard Do you often feel tired/ No 12/02/24 14:16 fatigued/ sleepy during daytime? Has anyone observed you stop No 12/02/24 14:16 breathing during sleep? STOP Results Negative 12/02/24 14:16 QUESTION #5 FULL TEXT : Do you snore loudly (louder than talking or can be heard through closeddoors)? 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 Specify any problems Hx of Preganancy in last 3 N/A 12/02/24 14:16 Months Nurse Filling Out Transfusion MGRIFFITH 12/02/24 14:16 & Questions: Date: 12/02/24 12/02/24 14:16 Time: 14:18 12/02/24 14:16 Patient unable to answer at this time (ie. confused, unrespo /Reproduction History /Reproductive History - inspector fuel hose: /Reproductive Hx- inspector fuel hose Hx Now No 12/02/24 14:16 Gestational Age (in weeks): EDC: Hx Hx Para Hx Section SAB No 06/12/24 15:10 Active Medications Active Medications: Current Medications Generic Name Dose Route Start Last Admin Trade Name Freq PRN Reason Stop Dose Admin Cefazolin Sodium 2 gm/ Sodium 110 mls @ 200 mls/hr 12/13/24 12:25 Chloride IV 12/13/24 12:57 INTRAOP ONE Lactated Ringer's 1,000 mls @ 15 mls/hr 12/13/24 10:30 IV .Q48H ALONDRA PFSH Medical History Cancer Mediastinal lymphadenopathy Loss of hearing Wears glasses Gout Bladder disease Injury of head and neck Leg cramps Non-smoker Home Medications ?Medication ?Instructions ?Recorded ?Last Taken ?Type lidocaine-prilocaine 2.5 %-2.5 % 1 applic topical ONCE PRN port 06/19/24 Unknown Rx topical cream access 30 days #30 grams ondansetron 8 mg disintegrating 8 mg PO Q8H PRN nausea and 06/19/24 Unknown Rx tablet vomiting #30 tabs prochlorperazine maleate 10 mg 10 mg PO Q6H PRN nausea and 06/19/24 Unknown Rx tablet vomiting #30 tabs Allergy/AdvReac Type Severity Reaction Status Date / Time No Known Allergies Allergy Verified 12/13/24 10:33 Family History Sister Cancer Mother Cancer Surgical History (Updated 12/02/24 @ 14:15 by Laura Davison) History of insertion of central venous access port Hx of surgical procedure History of transurethral resection of bladder tumor (TURBT) Hx of peritonsillar abscess drainage Hx of tonsillectomy Social History Smoking Status: Never smoker alcohol intake: never substance use type: does not use seatbelt use: always do you feel safe at home: Yes Review of Systems (Anesthesia) ROS Narrative System reviewed and no additional complaints, except as documented. 12/13/24 1035 MD> Date _ Jayson Mckinney MD [facility] Signature: Date CC: ~ Signed [facility]07-24-2025 Evaluation note* Diagnosis Onset Date Resolution Status Admit Date Bladder cancer chronic November 07, 2024 7:51am Bladder cancer chronic November 07, 2024 7:52am [facility] Work Phone: 1(473) 531-261907-24-2025 Progress [facility] [address] [place] [address] OFFICE VISIT Date of Service: 11/07/24 0824 MR#: [id number] Acct: [id number] Name: BETHANY ROJAS Rep #: [id number] : 1955 From: Donny Martinez MD Age/Sex: 69/M Location: [facility] [place] Status: Signed HPI Subjective Date of Service 11/07/24 Chief Complaint F/u for Bladder cancer History of Present Illness 69-year-old man presented with hematuria. Cystoscopy showed a posterior bladdermass which was resected on 01/31/2024. 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 Pathology showed invasive high-grade urothelial carcinoma with m uscle invasion. Pathologic staging pT2 Nx. He does not want surgery and wouldlike bladder preservation so referred for further management. CT scan done on 04/11/2024 showed bladder mass with no evidence of metastatic disease. PET CT scan on 04/27/2024 Showed hypermetabolic activity in the lower pelvis associated with soft tissue mass adjacent to the bladder, hypermetabolic activity in the carinal,subcarinal and bilateral perihilar areas. May 10, 2024 EBUS with TBNA showed no malignant cells. He elected bladder preservation. StartedChemotherapy with weekly Cisplatin and Radiation on 06/24/2024. Finished chemotherapy on 07/15/2024 and Radiation on 07/19/2024. He is on observation. Comes for follow up. He feels well, denies hematuria. PFSH Medical History Mediastinal lymphadenopathy Loss of hearing Wears glasses Gout Bladder disease Injury of head and neck Leg cramps Non-smoker Surgical History Hx of surgical procedure History of transurethral resection of bladder tumor (TURBT) Hx of peritonsillar abscess drainage Hx of tonsillectomy Family History Sister Cancer Mother Cancer Social History Smoking Status: Never smoker alcohol intake: never substance use type: does not use seatbelt use: always do you feel safe at home: Yes Intake Vital Signs 08/12/24 10:32 11/07/24 08:03 11/07/24 08:25 11/07/24 08:26 Height 5 ft 5 in 5 ft 5 in 5 ft 5 in Weight: 61.462 kg 61.462 kg BMI 22.5 BP 110/69 Blood Pressure Location Rt brachial Position Sitting Respiration 16 Pulse 64 Pulse Source Monitor Temp 96.8 F L Temperature Source Temporal Artery Pulse Oximetry (%) 97 Oxygen Delivery Method room air Intake Accompanied by: Is patient in pain?: No Allergies No Known Allergies Allergy (Verified 11/07/24 08:27) Medications ?Medication ?Instructions ?Recorded ?Confirmed ?Type lidocaine-prilocaine 2.5 %-2.5 % 1 applic topical ONCE PRN port 06/19/24 11/07/24 Rx topical cream access 30 days #30 grams ondansetron 8 mg disintegrating 8 mg PO Q8H PRN nausea and 06/19/24 11/07/24 Rx tablet vomiting #30 tabs prochlorperazine maleate 10 mg 10 mg PO Q6H PRN nausea and 06/19/24 11/07/24 Rx tablet vomiting #30 tabs Have you fallen in the past year?: No Central Venous Access Central Venous Access: Yes Port/PICC: Port 10/30/2024 Urine for Cytology reviewed. DIAGNOSIS CYTOLOGY A. Urine: ? No malignant cells are identified Exam Physical Exam Const alert, oriented x3 and no apparent distress HEENT normocephalic Eyes conjunctivae normal and no scleral icterus Neck full ROM and supple Lymph Lymphatic: no lymphadenopathy noted Chest Chest Narrative: Port R IC area. Resp clear to auscultation bilaterally Cardio regular rate, regular rhythm, S1 normal heart sound and S2 normal heart sound GI normal to inspection, nondistended, normoactive bowel sounds and soft to palpation Back/Spine no CVA tenderness Extremity no clubbing, cyanosis or edema Skin no rashes or lesions noted Neuro oriented x3, CN's II-XII intact bilaterally and moves all extremities Psych mental status grossly normal Coding Level of Care Code Off vis,est,level 4 Exam Problem Focused Diagnoses Malignant neoplasm of posterior wall of urinary bladder C67.4 Bladder location: posterior wall Assessment and Plan Assessment and Plan (1) Bladder cancer: Status: Chronic Qualifiers: Bladder location: posterior wall Qualified Code(s): C67.4 - Malignant neoplasm of posterior wall ofbladder Comment: Muscle invasive bladder cancer at least clinical stage II (T2, NX, M0). Borderline abnormal mediastinal lymphadenopathy with negative EBUS-TBNA. Finished Cisplatin and Radiation for bladder preservation on 07/19/2024. Comes for follow up. Counts and chemistry reviewed. CT 10/30/2024 reviewed, showed residual bladder mass. Urine for Cytology on 10/30/2024 is negative. No evidence of progressive disease. Plan: To check ctDNA. Obtain urine for cytology. F/u with Urology for cystoscopy.. RTC 3 months Plan Details Follow Up: 3 Months Clinical Quality Measures Falls Risk Screening/Assistive Devices Have you fallen in the past year?: No 11/07/24 0927 D> Date _ Donny Gamezignmiguel Signature: Date (if applicable) CC: ASPARAGUS BUNCHERChris Lozano ~ [facility]07-24-2025 Progress note Author Donny Martinez [facility] Note Date/Time November 07, 2024 9:27 am [facility] [place] [address] [address] OFFICE VISIT Date of Service: 11/07/24823 MR#: [id number] Acct: [id number] Name: BETHANY ROJAS Rep #: [id number] : 1955 From: Donny Martinez MD Age/Sex: 69/M Location: [facility] [place] Status: Signed HPI Subjective Date of Service 11/07/24 Chief Complaint F/u for Bladder cancer History of Present Illness 69-year-old man presented with hematuria. Cystoscopy showed a posterior bladdermass which was resected on 01/31/2024. 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 He had another TURBT on 03/13/2024. Pathology showed invasive high-grade urothelial carcinoma with muscle invasion. Pathologic staging pT2 Nx. He does not want surgery and wouldlike bladder preservation so referred for further management. CT scan done on 04/11/2024 showed bladder mass with no evidence of metastatic disease. PET CT scan on 04/27/2024 Showed hypermetabolic activity in the lower pelvis associated with soft tissue mass adjacent to the bladder, hypermetabolic activity in the carinal, subcarinal and bilateral perihilar areas. May 10, 2024 EBUS with TBNA showed no malignant cells. He elected bladder preservation. Started Chemotherapy with weekly Cisplatin and Radiation on 06/24/2024. Finished chemotherapy on 07/15/2024 and Radiation on 07/19/2024. He is on observation. Comes for follow up. He feels well, denies hematuria. PFSH Medical History Mediastinal lymphadenopathy Loss of hearing Wears glasses Gout Bladder disease Injury of head and neck Leg cramps Non-smoker Surgical History Hx of surgical procedure History of transurethral resection of bladder tumor (TURBT) Hx of peritonsillar abscess drainage Hx of tonsillectomy Family History Sister Cancer Mother Cancer Social History Smoking Status: Never smoker alcohol intake: never substance use type: does not use seatbelt use: always do you feel safe at home: Yes Intake Vital Signs 08/12/24 10:32 11/07/24 08:03 11/07/24 08:25 11/07/24 08:26 Height 5 ft 5 in 5 ft 5 in 5 ft 5 in Weight: 61.462 kg 61.462 kg BMI 22.5 BP 110/69 Blood Pressure Location Rt brachial Position Sitting Respiration 16 Pulse 64 Pulse Source Monitor Temp 96.8 F L Temperature Source Temporal Artery Pulse Oximetry (%) 97 Oxygen Delivery Method room air Intake Accompanied by: Is patient in pain?: No Allergies No Known Allergies Allergy (Verified 11/07/24 08:27) Medications ?Medication ?Instructions ?Recorded ?Confirmed ?Type lidocaine-prilocaine 2.5 %-2.5 % 1 applic topical ONCE PRN port 06/19/24 11/07/24 Rx topical cream access 30 days #30 grams ondansetron 8 mg disintegrating 8 mg PO Q8H PRN nausea and 06/19/24 11/07/24 Rx tablet vomiting #30 tabs prochlorperazine maleate 10 mg 10 mg PO Q6H PRN nausea and 06/19/24 11/07/24 Rx tablet vomiting #30 tabs Have you fallen in the past year?: No Central Venous Access Central Venous Access: Yes Port/PICC: Port 10/30/2024 Urine for Cytology reviewed. DIAGNOSIS CYTOLOGY A. Urine: ? No malignant cells are identified Exam Physical Exam Const alert, oriented x3 and no apparent distress HEENT normocephalic Eyes conjunctivae normal and no scleral icterus Neck full ROM and supple Lymph Lymphatic: no lymphadenopathy noted Chest Chest Narrative: Port R IC area. Resp clear to auscultation bilaterally Cardio regular rate, regular rhythm, S1 normal heart sound and S2 normal heart sound GI normal to inspection, nondistended, normoactive bowel sounds and soft to palpation Back/Spine no CVA tenderness Extremity no clubbing, cyanosis or edema Skin no rashes or lesions noted Neuro oriented x3, CN's II-XII intact bilaterally and moves all extremities Psych mental status grossly normal Coding Level of Care Code Off vis,est,level 4 Exam Problem Focused Diagnoses Malignant neoplasm of posterior wall of urinary bladder C67.4 Bladder location: posterior wall Assessment and Plan Assessment and Plan (1) Bladder cancer: Status: Chronic Qualifiers: Bladder location: posterior wall Qualified Code(s): C67.4 - Malignant neoplasm of posterior wall of bladder Comment: Muscle invasive bladder cancer at least clinical stage II (T2, NX, M0). Borderline abnormal mediastinal lymphadenopathy with negative EBUS-TBNA. Finished Cisplatin and Radiation for bladder preservation on 07/19/2024. Comes for follow up. Counts and chemistry reviewed. CT 10/30/2024 reviewed, showed residual bladder mass. Urine for Cytology on 10/30/2024 is negative. No evidence of progressive disease. Plan: To check ctDNA. Obtain urine for cytology. F/u with Urology for cystoscopy.. RTC 3 months Plan Details Follow Up: 3 Months Clinical Quality Measures Falls Risk Screening/Assistive Devices Have you fallen in the past year?: No 11/07/24 0927 <Electronically signed by Donny Faye> Date _ Donny Martinez MD Cosigner Signature: Date (if applicable) CC: ASPARAGUS BUNCHER-C Kyrie Lozano ~ [facility] Work Phone: [phone]) [phone] Radiology Diagnostic study note [facility] Imaging Services [address] [place] [id number] Chest, Abd, Pel w/Contrast MR#: [id number] Acct: [id number] Name: BETHANY ROJAS Rep #: [id number] : 1955 M 69 From: Erlin Wilkerson MD PCP: Kyrie Lozano, ASPARAGUS BUNCHER-C Status: REG CLI Study:CT Chest, Abd, Pel w/Contrast Date of E xam: 10/30/24 Exam# [id number] Ordering Dr: Mohsen Martinez MD PROCEDURE: CT CHEST, ABD, PEL W/CONTRAST 10/30/2024 REASON FOR EXAM: BLADDER CA-IV ONLY Prior chemotherapy. TECHNIQUE: Chest, abdomen and pelvis CT with intravenous contrast. Coronal and Sagittal reconstruction series were provided. One or more dose reduction techniques were used (e.g., Automated exposure control, adjustment of the mA and/or kV according to patient size, use of iterative reconstruction technique. PATIENT PREPARATION: Per protocol ORAL CONTRAST TYPE: None. CONTRAST: Isovue-300 VOLUME: 100mL RADIATION DOSE SUMMARY: CTDlvol: 12 mGy DLP: 995.02 mGycm COMPARISON: Prior study dated April 11, 2024. FINDINGS: CT CHEST: Hardware: A right-sided port a catheter is seen with the tip in the superior vena cava. Lymph nodes: Small benign Heart and Vasculature: Minimal coronary artery calcification. Heart is nonenlarged. No evidence of pericardial effusion. Lungs and Airways: Minimal linear basilar atelectasis. Pleura: No pleural effusion. Bones: Degenerative changes of the thoracic spine. CT ABDOMEN/PELVIS: Liver: Normal size. No mass. Gallbladder: Unremarkable. Spleen: Normal size. Pancreas: Normal size without evidence of mass surrounding inflammation or ductal dilation. Adrenals: Unremarkable Kidneys: Normal renal sizes. No hydronephrosis. Bladder: Ureter wall thickening. This is there is evidence of a 2.6 cm by 2.6 cm polypoid lesion inthe left side of the bladder at the base. This has grown as compared to prior study Bowel: No bowel obstruction. Appendix: The appendix is not identified. There is no inflammatory process identified in the right lower quadrant to suggest appendicitis. Lymph nodes: Unremarkable. Vasculature: Mild diffuse atherosclerotic calcifications are noted. Peritoneum / Retroperitoneum: Unremarkable Bones: Degenerative changes of the spine. Grade 1 anterior listhesis of L5 on S1 with spondylolysisof the pars interarticularis of the L5 vertebrae. CT/CT Chest, Abd, Pel w/Contrast IMPRESSION: Persistent bladder wall thickening more pronounced at the base of the left side of the bladder withthe polypoid lesion as described. The remainder of the examination is unchanged. Reading Location: [place] [address] CC: HARSHAL Lozano; Dr. Donny Martinez MD ~ Fruit Peeler: Signed [facility]04-09-2025 Radiology Diagnostic study note [facility] Imaging Services [address] [place] [address] Chest PA and Lateral MR#: [id number] Acct: [id number] Name: EBTHANY ROJAS Rep #: [id number] : 1955 M 69 From: Meseret Johnson MD PCP: Kyrie Lozano NP-C Status: REG ER Study:Chest PA and Lateral Date of Exam: 07/24/24 Exam# [id number] Ordering Dr: Jayson Bartlett DO PROCEDURE: CHEST PA AND LATERAL 07/24/2024 REASON FOR EXAM: FEVER TECHNIQUE: Frontal and lateral views of the chest. COMPARISON: 06/14/2024 FINDINGS: Hardware: Stable right sided port catheter. Heart: The heart size is normal. Mediastinum: The mediastinal contour is unremarkable. Lungs: No focal consolidation. No pneumothorax. No pleural effusion. Bones: Degenerative changes are identified within the thoracic spine. RAD/Chest PA and Lateral IMPRESSION: NO ACUTE FINDINGS. Reading Location: [place] CC: ASPARAGUS BUNCHER-C Kyrie Lozano; Dr. Jayson Bartlett DO ~ Fruit Peeler: Signed [facility]03-27-2025 Evaluation note* Diagnosis Onset Date Resolution Status Admit Date Bladder cancer chronic June 8:00am Mediastinal lymphadenopathy acute July 15, 2024 7:39am Bladder cancer chronic June 7:39am Bladder cancer chronic July 16, 2024 7:31am Mediastinal lymphadenopathy acute August 12, 2024 9:20am Bladder cancer chronic July 9:20am Bladder cancer chronic July 9:20am [facility] Work Phone: [phone]) [phone] Evaluation note* Diagnosis Onset Date Resolution Status Admit Date Bladder cancer chronic June 8:00am Bladder cancer chronic June 7:39am Mediastinal lymphadenopathy chronic March 31st, 2025 7:39am Bladder cancer chronic July 16, 2024 7:31am Bladder cancer chronic July 9:20am Mediastinal lymphadenopathy chronic August 12, 2024 9:20am Bladder cancer chronic July 9:20am Bladder cancer chronic November 07, 2024 7:51am Bladder cancer chronic November 07, 2024 7:52am [facility] Work Phone: [phone]) [phone] Evaluation note* Diagnosis Onset Date Resolution Status Admit Date Mediastinal lymphadenopathy acute July 08, 2024 7:40am Bladder cancer chronic June 7:40am Bladder cancer chronic June 8:00am Mediastinal lymphadenopathy acute July 15, 2024 7:39am Bladder cancer chronic June 7:39am Bladder cancer chronic July 16, 2024 7:31am Mediastinal lymphadenopathy acute August 12, 2024 9:20am Bladder cancer chronic July 9:20am Bladder cancer chronic July 9:20am [facility] Work Phone: 1(811) 828-135202-28-2025 [facility]02-25-2025 History of Present illness Narrative* Alvaro Mendieta, Research Coordinator - 06/11/2024 11:40 AM ESTSummary: Research Patient was approached about his interest in IRB [id number], patient declined. documented in this [facility]25 NoteHNO ID: [id number] Author: ALVARO MENDIETA, Research Coordinator Service: ? Author Type: Research Type: Progress Notes Filed: 06/12/2024 08:33 Note Text: Summary: Research Patient was approached about his interest in IRB [id number], patient declined. [facility]02-25-2025 NoteHNO ID: [id number] Author: ROEL BARRIOS MD Service: ? Author Type: Physician Type: Progress Notes Filed: 06/12/2024 10:21 Note Text: ##New Invasive Bladder Cancer Patient## Chief Complaint: Invasive Bladder Cancer History of Present Illness: Bethany Rojas is a very pleasant 69 year old male who presents with a history of invasive bladder cancer. S/p TURBT 01/31/24, 03/03/2024. 01/31/2024- TURBT path consistent with T1 high grade 03/13/2024- TURBT path consistent with T2 04/11/2024- CT chest/abd/pelvis noting no metastatic disease 04/23/2024 PET demonstrated increased uptake in the pelvis with a soft tissue mass consistent with viable neoplasm. The carnal and subcarnal mediastinum and thoracis per hilum are borderline for viable neoplasm 05/10/2024: Patient completed bronchoscopy and EBUS. Biopsy of mediastinal lymph noses were negative for malignant cells Outside Surgical Pathology (05/31/24) Outside Surgical Pathology (03/15/24) Bladder Cancer: - Diagnosed with bladder cancer after an ultrasound revealed a tumor obstructing drainage. - Initial pathology report in January indicated non-invasive T1 tumor; subsequent report in February showed muscle-invasive tumor. - Underwent two TURBT procedures; first urologist believed 95% of the tumor was removed. - Considering treatment options, including surgery and radiation. - Concerns about the maintenance of a urinary diversion bag. - Recent CT scan showed shadows on lungs; PET scan highlighted areas, but biopsy by communication center coordinator showed no cancer. - Conflicting opinions from oncologists regarding lung findings. - Recent blood test (Signatera) showed positive for cancer DNA; oncologist dismissed the test as worthless. 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 - Denies smoking history. 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 - Describes himself as very active, with concerns about the impact of treatment on lifestyle. Past Medical History: No past medical history on file. Past Surgical History: No past surgical history on file. Problem List: There is no problem list on file for this patient. Medications No current outpatient medications on file prior to visit. No current facility-administered medications on file prior to visit. Family History: No family history on file. Social History: Allergies: Patient has no known allergies. Physical Exam: Patient is a 69 year old male Constitutional: Vitals: Blood pressure 130/78, pulse 69, height 165.1 cm (5' 5), weight 65.7 kg (144 lb 13.5 oz). General Appearance Adult: Alert, no acute distress, oriented Lungs/Repiratory: no respiratory distress, or pursed lip breathing Psych: affect and mood normal Abdomen: Estimated body mass index is 24.1 kg/m? as calculated from the following: Height as of this encounter: 165.1 cm (5' 5). Weight as of this encounter: 65.7 kg (144 lb 13.5 oz). Labs and Pathology: Outside Surgical Pathology (05/31/24) TURBT 02/02/2024 TURBT 03/15/2024 Imaging: PET CT (04/23/24) Outside and Past Medical records: Assessment: High grade invasive bladder cancer. S/p TURBT 02/02/24 and 03/15/24. Papillary urothelial carcinoma, invasive. High grade. T2NxMx. Biopsy of mediastinal lymph noses were negative for malignant cells Plan: Pt is leaning towards radiation and would like to have it done locally. Pt was recommended to follow up as needed. We had a long discussion about muscle invasive bladder cancer. We discussed the fact that once urothelial cancer invades the bladder muscle layer it can potentially invade the blood vessels and lymphatic channels and spread throughout the body. Once urothelial cancer spreads to distant organs, the opportunity for cure is rare, so we have the best shot for cure with aggressive surgical intervention. We discussed radical cystectomy and the potential complications associated with it, including a 2-3% perioperative mortality risk, and the risk of complications is about 60%. We also discussed about 20-30% of patients need to go to a rehab facility after surgery and about 25% return to the hospital for complications. We also discussed the use of radiation combined with chemotherapy. This approach is appealing in that the bladder can potentially stay in place. However to be eligible, past studies have suggested the tumor needs to be unifocal, under ~5 cms, not associated with CIS nor hydronephrosis. Though survival rates are comparable to surgery in these select patients, cancer recurrence rates are much higher, close surveillance is required, many need ongoing intravesicle treatments and TURBTs and 25% elect to have the bladder removed anyway. Bladder removal after radiation is much higher risk and more difficult. However, for select patients, this option may work. We also dis (more content not included)...[facility]02-25-2025 History of Present illness Narrative* Roel Barrios MD - 06/11/2024 10:34 AM EST Images from the original note were not included. ##New Invasive Bladder Cancer Patient## Chief Complaint: Invasive Bladder Cancer History of Present Illness: Bethany Rojas is a very pleasant 69 year old male who presents with a history of invasive bladder cancer. S/p TURBT 01/31/24, 03/03/2024. 01/31/2024- TURBT path consistent with T1 high grade 03/13/2024- TURBT path consistent with T2 04/11/2024- CT chest/abd/pelvis noting no metastatic disease 04/23/2024 PET demonstrated increased uptake in the pelvis with a soft tissue mass consistent with viable neoplasm. The carnal and subcarnal mediastinum and thoracis per hilum are borderline for viableneoplasm 05/10/2024: Patient completed bronchoscopy and EBUS. Biopsy of mediastinal lymph noses were negativefor malignant cells Outside Surgical Pathology (05/31/24) Outside Surgical Pathology (03/15/24) Bladder Cancer: - Diagnosed with bladder cancer after an ultrasound revealed a tumor obstructing drainage. - Initial pathology report in January indicated non-invasive T1 tumor; subsequent report in February showed muscle-invasive tumor. - Underwent two TURBT procedures; first urologist believed 95% of the tumor was removed. - Considering treatment options, including surgery and radiation. - Concerns about the maintenance of a urinary diversion bag. - Recent CT scan showed shadows on lungs; PET scan highlighted areas, but biopsy by communication center coordinator showed no cancer. - Conflicting opinions from oncologists regarding lung findings. - Recent blood test (Signatera) showed positive for cancer DNA; oncologist dismissed the test as worthless. 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 - Denies smoking history. 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 - Describes himself as very active, with concerns about the impact of treatment on lifestyle. Past Medical History: No past medical history on file. Past Surgical History: No past surgical history on file. Problem List: There is no problem list on file for this patient. Medications No current outpatient medications on file prior to visit. No current facility-administered medications on file prior to visit. Family History: No family history on file. Social History: Allergies: Patient has no known allergies. Physical Exam: Patient is a 69 year old male Constitutional: Vitals: Blood pressure 130/78, pulse 69, height 165.1 cm (5' 5), weight 65.7 kg (144 lb 13.5 oz). General Appearance Adult: Alert, no acute distress, oriented Lungs/Repiratory: no respiratory distress, or pursed lip breathing Psych: affect and mood normal Abdomen: Estimated body mass index is 24.1 kg/m as calculated from the following: Height as of this encounter: 165.1 cm (5' 5). Weight as of this encounter: 65.7 kg (144 lb 13.5 oz). Labs and Pathology: Outside Surgical Pathology (05/31/24) TURBT 02/02/2024 TURBT 03/15/2024 Imaging: PET CT (04/23/24) Outside and Past Medical records: Assessment: High grade invasive bladder cancer. S/p TURBT 02/02/24 and 03/15/24. Papillary urothelial carcinoma, invasive. High grade. T2NxMx. Biopsy of mediastinal lymph noses were negative for malignant cells Plan: Pt is leaning towards radiation and would like to have it done locally. Pt was recommended to follow up as needed. We had a long discussion about muscle invasive bladder cancer. We discussed the fact that once urothelial cancer invades the bladder muscle layer it can potentially invade the blood vessels and lymphatic channels and spread throughout the body. Once urothelial cancer spreads to distant organs, the o pportunity for cure is rare, so we have the best shot for cure with aggressive surgical intervention. We discussed radical cystectomy and the potential complications associated with it, including a 2-3% perioperative mortality risk, and the risk of complications is about 60%. We also discussed about 20-30% of patients need to go to a rehab facility after surgery and about 25% return to the hospitalfor complications. We also discussed the use of radiation combined with chemotherapy. This approach is appealing in that the bladder can potentially stay in place. However to be eligible, past studies have suggested the tumor needs to be unifocal, under ~5 cms, not associated with CIS nor hydronephrosis. Though survival rates are comparable to surgery in these select patients, cancer recurrence rates are much higher, close surveillance is required, many need ongoing intravesicle treatments and TURBTs and 25% elect to have the bladder removed anyway. Bladder removal after radiation is much higher risk and more difficult. However, for select patients, this option may work. We also discussed the various types of urinary diversion including ileal conduit, [place] Pouch andileal neobladder. The various pros and cons of each type of urinary diversion was discussed and allquestions were answered. Prospective quality of life data is lacking that compares the various diversion types, but retrospective data suggest the differences are small by diversion type. Poor kidneyfunction precludes continent urinary diversions because electrolyte and acid base disturbances occur We discussed the use of neoadjuvant chemotherapy in the setting of muscle invasive bladder cancer and that the combine analyses of these studies indicate approximately a 5% absolute survival advantage at 5 years. We also discussed the role of adjuvant chemotherapy and though the data is not as strong, it appears to be beneficial in this setting as well. The patient and his family had many questions and we went over these carefully. We provided the patient with a bladder cancer binder and indicated the resources available inside. Offered to connect them with patients who had previously undergone the procedure. Mary Tejeda APRN.ENAMEL SPRAYER The patient is seen and examined by Dr. Roel Barrios and the following reflects his/her service. Scribed by Kyrie Blancas I agree with the Chief Complaint, ROS, and Past Histories independently gathered by the clinical clinical support manager including scribe and or medical student and or ASPEN and or resident or fellow and the remaining scribed note accurately describes my personal service to the patient. 1. Malignant neoplasm of overlapping sites of bladder (HCC) (C67.8) 2. History of bladder cancer (Z85.51) - Diagnosed with muscle-invasive bladder cancer following two TURBT procedures; initial pathology in January showed T1 non-invasive tumor, but subsequent pathology in February confirmed deeper muscleinvasion. Discussed treatment options including radical cystectomy with urinary diversion and bladder-sparing chemoradiation. Educated on the benefits and risks of each approach, including potential complications and long-term outcomes. Patient leaning towards bladder- sparing chemoradiation due to concerns about the maintenance and lifestyle changes associated with urinary diversion. Encouraged patient to proceed with initiating treatment promptly given the aggressive nature of the tumor. Follow- up with oncology to coordinate chemoradiation therapy. 3. - Denies any history of tobacco use. 4. 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 Discussed the potential impact of occupational exposures on bladder cancer risk. Roel Barrios MD, [facility] documented in this encounterCh[facility]icothe [facility]02-25-2025 NotePatient Outreach (UROLMN) BETHANY ROJAS ([id number]) 1955 [facility] Date Time Provider Department 06/11/24 ROEL BARRIOS During your visit today, we recorded the following information about you: Allergies As of Date: 06/11/2024 (No Known Allergies) Date Reviewed: 06/11/2024 Reviewed by: Elise Rojas OCCA - Fully Assessed Visit Diagnosis:Screening for genitourinary condition [Z13.89] Order(s):UA DIP, URINE (POC) [[id number]] Order #: [id number] FUTURE Prescriptions as of 06/14/2024 - acetaminophen (TYLENOL) 325 mg cap Take by mouth. Problem List As Of Date: 06/11/2024 (None) Encounter Status:Closed by JASON EUGENE on 06/14/24[facility] 05-08-2024 [facility]12-19-2024 Evaluation note* Diagnosis Onset Date Resolution Status Admit Date Bladder cancer chronic March 172023 3:09pm Bladder cancer chronic March 192023 8:21am Bladder cancer chronic April 4:08pm Bladder cancer chronic April 302024 10:40am Abnormal PET scan of lung deleted April 30, 2024 10:40am Abnormal PET scan of lung deleted May 10, 2024 9:58am Mediastinal lymphadenopathy acute May 21, 2024 10:38am Bladder cancer chronic May 212024 10:38am Bladder cancer chronic May 242024 7:58am Encounter for adjustment and management of vascular access device acute June 10 7:49am Bladder cancer chronic May 192024 7:49am Mediastinal lymphadenopathy acute June 19, 2024 7:50am Bladder cancer chronic June 19, 2024 7:50am Mediastinal lymphadenopathy acute June 24, 2024 7:41am Bladder cancer chronic June 7:41am Bladder cancer chronic June 8:06am Mediastinal lymphadenopathy acute July 01, 2024 7:47am Bladder cancer chronic June 7:47am Bladder cancer chronic June 7:32am Mediastinal lymphadenopathy acute July 08, 2024 7:40am Bladder cancer chronic June 7:40am Bladder cancer chronic June 8:00am Mediastinal lymphadenopathy acute July 15, 2024 7:39am Bladder cancer chronic June 7:39am Bladder cancer chronic July 16, 2024 7:31am [facility] Work Phone: 1(318) 583-195611-27-2024 [facility]10-16-2024 [facility]09-23-2024 Note ORIGINAL EXAMINATION: LIMITED RETROPERITONEAL ULTRASOUND01/08/2024 7:28 am Ultrasound retroperitoneum Complete: Attention Urinary tract COMPARISON: None TECHNIQUE: This report is based on interpretation of permanently recorded ultrasound images. HISTORY: ORDERING SYSTEM PROVIDED HISTORY: Reason for Exam: -Renal & Bladder Ultrasound to evaluate for bladder tumors and/or upper tract obstruction, patient gives history of recent hematuria, frequent urination, recent passage of stones FINDINGS: Right kidney: 10.6 x 4.4 x 3.9 cm. There is normal cortical thickness and echogenicity. No pelvocaliectasis, shadowing stone or renal mass is seen. Left kidney: 11.5 x 4.6 x 5.5 cm. There is normal cortical thickness and echogenicity. Mild to moderate pelvocaliectasis is present. No renal mass or shadowing stone is seen. There is no free fluid seen in the abdomen. Urinary bladder is quite well distended with volume of about 300 cc. There is a large irregular heterogeneous mass in the dependent portion of the urinary bladder that is about 7.1 x 6.6 x 5.1 cm. This is very echogenic anteriorly and may be partially calcified. There seem to be areas of significant blood flow in the mass although some of this could be Doppler twinkle artifact also.. The prostate is difficult to separate from the suspected mass. IMPRESSION: There is left-sided hydronephrosis of uncertain etiology and significance. Large masslike abnormality in the urinary bladder that may be a combination of blood clot and actual mass. This requires further evaluation with cystoscopy. Interpreted by: Devaughn Holland MD Preliminary Report By: Devaughn Holland MD Electronically signed By Devaughn Holland MD Dictated Date: 01/08/2024 12:04:31 PM Prelim Date: 01/08/2024 12:08:29 PM Sign Date: 01/08/2024 12:08:29 PM Ordering Provider: [facility]09-11-2024 Note. MICRO - Microbiology PROCEDURE: Urine Culture [*1] SOURCE: Urine, Clean Catch BODY SITE: COLLECTED DATE/TIME: 12/26/2023 17:08 EDT RECEIVED DATE/TIME: 12/26/2023 18:59 EDT START DATE/TIME: 12/26/2023 18:59 EDT FREE TEXT SOURCE: FINAL REPORTS Final Report [] Verified Date/Time/Personnel: 12/27/2023 14:36 EDT <10,000 cfu/ml. No Significant growth. Sensitivity not indicated. Performing Locations *1: This test was performed at: [facility], [address] [place] [address], [id number] , [facility]01-15-2024 Hospital Discharge instructions Patient Education 05/01/2023 17:34:51 Neck Sprain or Strain Neck Sprain or Strain A sudden force that causes turning or bending of the neck can cause sprain or strain. An example would be the force from a car accident. This can stretch or tear muscles called a strain. It can also stretch or tear ligaments called a sprain. Either of these can cause neck pain. Sometimes neck pain occurs after a simple awkward movement. In either case, muscle spasm is commonly present and contributes to the pain. Unless you had a forceful physical injury (for example, a car accident or fall), X-rays are often not ordered for the initial evaluation of neck pain. If pain continues and does not respond to medical treatment, X-rays and other tests may be done later. Home care You may feel more soreness and spasm the first few days after the injury. Rest until symptoms startto improve. When lying down, use a comfortable pillow or a rolled towel that supports the head and keeps the spine in a neutral position. The position of the head should not be tilted forward or backward. Apply an ice pack over the injured area for 15 to 20 minutes every 3 to 6 hours. Do this for the first 24 to 48 hours. You can make an ice pack by filling a plastic bag that seals at the top with icecubes and then wrapping it with a thin towel. After 48 hours, apply heat (warm shower or warm bath)for 15 to 20 minutes several times a day, or alternate ice and heat. You may use [id number] pain medicine to control pain, unless another pain medicine was prescribed. If you have chronic liver or kidney disease or ever had a stomach ulcer or gastrointestinal bleeding, talk with your healthcare provider before using these medicines. If a soft cervical collar was prescribed, only ear it for periods of increased pain. It should not be worn for more than 3 hours a day, or for longer than 1 to 2 weeks. Follow-up care Follow up with your healthcare provider, or as directed. Physical therapy may be needed. Sometimes fractures don t show up on the first X-ray. Bruises and sprains can sometimes hurt as much as a fracture. These injuries can take time to heal completely. If your symptoms don t improve or they get worse, talk with your healthcare provider. You may need a repeat X-ray or other tests. If X-rays were taken, you will be told of any new findings that may affect your care. Call 911 Call 911 if you have: Neck swelling, difficulty or painful swallowing Trouble breathing Chest pain When to seek medical advice Call your healthcare provider right away if any of these occur: Pain becomes worse or spreads into your arms or legs Weakness or numbness in one or both arms or legs [id number] [employer] [place] [address]. All rights reserved. This information is not intended as a substitute for professional medical care. Always follow yourhealthcare professional's instructions. Follow Up Care 05/01/2023 16:06:20 With:MITCHELL MEDRANO Address: [address] [place] [address] [id number] When:2-4 days Comments:[facility] [address] [address] With:KYRIE LOZANO WAX PATTERN ASSEMBLER - ENAMEL SPRAYER Address: [address] [place] [address] [phone]- When:2-4 days [facility] 01-15-2024 Note Discharge Instructions Thank you for allowing [facility] to assist you with your healthcare needs. The following is importantdischarge information regarding your hospital visit. Diagnosis from Today's Visit Neck pain Shoulder pain-swelling What to Do Next Instructions from Your Care Team No qualifying data available. Post Acute Orders No qualifying data available. You Need to Schedule the Following Appointments Follow Up with MITCHELL MEDRANO When Within 2-4 days Why: [address] [address] Where: [address] [place] [id number]- Follow Up with KYRIE LOZANO [employer] PATTERN ASSEMBLER - ENAMEL SPRAYER When Within 2-4 days Where: [address] [place] [id number]- Allergies NKA Medications Please ask your primary doctor or pharmacist before taking any other medication not listed, including over the counter drugs, herbal medications, vitamins and or supplements as they may interact withyour home medications. Please take this list to your next doctor s visit. Bring all medications you take, including over the counter medications, herbals and other supplements with you to your doctor s visit. Patients and families are reminded to discard old lists and to update any records with all medication providers or retail pharmacies. Education Materials Neck Sprain or Strain A sudden force that causes turning or bending of the neck can cause sprain or strain. An example would be the force from a car accident. This can stretch or tear muscles called a strain. It can also stretch or tear ligaments called a sprain. Either of these can cause neck pain. Sometimes neck pain occurs after a simple awkward movement. In either case, muscle spasm is commonly present and contributes to the pain. Unless you had a forceful physical injury (for example, a car accident or fall), X-rays are often not ordered for the initial evaluation of neck pain. If pain continues and does not respond to medical treatment, X-rays and other tests may be done later. Home care You may feel more soreness and spasm the first few days after the injury. Rest until symptoms startto improve. When lying down, use a comfortable pillow or a rolled towel that supports the head and keeps the spine in a neutral position. The position of the head should not be tilted forward or backward. Apply an ice pack over the injured area for 15 to 20 minutes every 3 to 6 hours. Do this for the first 24 to 48 hours. You can make an ice pack by filling a plastic bag that seals at the top with icecubes and then wrapping it with a thin towel. After 48 hours, apply heat (warm shower or warm bath)for 15 to 20 minutes several times a day, or alternate ice and heat. You may use [id number] pain medicine to control pain, unless another pain medicine was prescribed. If you have chronic liver or kidney disease or ever had a stomach ulcer or gastrointestinal bleeding, talk with your healthcare provider before using these medicines. If a soft cervical collar was prescribed, only ear it for periods of increased pain. It should not be worn for more than 3 hours a day, or for longer than 1 to 2 weeks. Follow-up care Follow up with your healthcare provider, or as directed. Physical therapy may be needed. Sometimes fractures don t show up on the first X-ray. Bruises and sprains can sometimes hurt as much as a fracture. These injuries can take time to heal completely. If your symptoms don t improve or they get worse, talk with your healthcare provider. You may need a repeat X-ray or other tests. If X-rays were taken, you will be told of any new findings that may affect your care. Call 911 Call 911 if you have: Neck swelling, difficulty or painful swallowing Trouble breathing Chest pain When to seek medical advice Call your healthcare provider right away if any of these occur: Pain becomes worse or spreads into your arms or legs Weakness or numbness in one or both arms or legs [id number] [employer]. [address] [place] [address]. All rights reserved. This information is not intended as a substitute for professional medical care. Always follow yourhealthcare professional's instructions. Additional Information VACCINATE! IT SAVES LIVES! Members of the community who have not yet received the COVID-19 vaccine and would like to receive it can visit one of [facility] vaccine clinics. There are many vaccine clinic locations within the [facility]. For locations and available times, please visit [email or web address] It is important to note that some COVID mobile vaccine clinics are held outdoors and may be canceled in rainy or stormy conditions. To learn more about pediatric vaccinations (ages 5-11), we invite you to visit the [facility] webpage. [email or web address]/[email or web address] learn more about the COVID-19 vaccine, we invite you to visit the CDC website for a list of frequently asked questions. https://www.cdc.gov/coronavirus/2019-ncov/vaccines/faq.html [facility] Access Instructions: Stay connected with your healthcare team and access your personal medical information anytime with the [facility] Patient Portal. If you would like a full copy of your medical records please contact the [facility] Medical Records Department Monday through Monday between 8a.m. and 4:30p.m. Please follow the directions below to access the portal: 1.Access the email account you provided upon registration to the hospital.2.Look for an invitation email from [facility].3.Open the email and access the invitation link: Accept Invitation to [facility].Fill in the required butterfield to create your account. Sign into [email or web address] with your username and password that you created in the above steps to stay up to date. You can then view a summary of results, a summary of your visits, and the ability to download your summaries to your computer or send the information securely to a physician. Remember that your healthcare information is confidential, so carefully consider who you will allow to register on the [facility] Patient Portal for access to your information. You can also access the [facility] Patient Portal on the [employer]. Simply click on Health Records under [employer] and then click on the Jonathan logo. HOW TO SAFELY DISPOSE OF PRESCRIPTION MEDICATIONS Please use one of the following methods to safely dispose of your unused medications. 1.Use a drug disposal kit: the drug disposal pouch allows you to safely discard your old and unuseddrugs. Ask your nurse to give you one when you are discharged.2.Visit a local take-back location: Many local pharmacies and police departments have programs that collect old and unwanted prescriptiondrugs. Call your local pharmacy or go to http://Trendyol.Inventarium.mobi/9E9Cy6l to find one close to you.3.Make use of household items: Use cat litter or old coffee grounds to dispose medications if other options arenot available. Mix your drugs with these household products, seal them in an airtight container andthrow it into the garbage. Call [facility]: [phone] to be sure your drugs can be disposed of in this way. Some medicines may require a different approach.4.Never flush your medications down the toilet. IF YOU HAVE BEEN PRESCRIBED AN OPIOIDS FOR PAIN If you have been prescribed an opioid (such as hydrocodone, oxycodone or morphine), it is critical to understand the possible side effects and risks of opioid pain medications. Even when taken as directed, opioids can have several side effects including: Tolerance, meaning you might need to take more of a medication for the same pain relief. Nausea, vomiting and/or constipation. Sleepiness, dizziness, dry mouth, confusion, depression or itching. Physical dependence, meaning you have withdrawal symptoms when a medication is stopped ? this can develop within a few days. KNOW YOUR RESPONSIBILITIES It is important to know exactly how much and how often to take the opioid pain medications you are prescribed. Never take opioids in higher amounts or more often than prescribed. Do not combine opioids with alcohol or other drugs that cause drowsiness, such as benzodiazepines, also known as benzos,including diazepam and alprazolam, muscle relaxants or sleep aids. Never sell or share prescriptionopioids. This is illegal. Store opioids in a secure place and out of reach of others (including children, family, friends and visitors). The last page(s) of this document has been signed and retained as a CHART COPY Signatures Patient Education Materials Neck Sprain or Strain Medication Leaflets My discharge plan and instructions have been reviewed and explained to me and I,BETHANY ROJAS understand my current condition and have read and understand these discharge instructions. I have received awritten copy of the plan/instructions. If I have questions, I am aware that I should contact my doctor. Patient/Property Master Signature: Date/Time: Relationship to Patient: Witness Name/Signature: Date/Time: [facility]01-15-2024 Note ORIGINAL EXAMINATION: FIVE XRAY VIEWS OF THE CERVICAL SPINE 05/01/2023 5:23 pm COMPARISON: None. HISTORY: ORDERING SYSTEM PROVIDED HISTORY: Reason for Exam: pain FINDINGS: Vertebral body heights and alignment are preserved. Multilevel degenerative changes of the spine with multilevel neural foraminal narrowing, particularly on the left. Atlantoaxial relationship is preserved. IMPRESSION: No acute osseous abnormality by radiograph. Interpreted by: Zheng Venegas Preliminary Report By: Zheng Venegas Electronically signed By Zheng Venegas Dictated Date: 05/01/2023 5:25:19 PM Prelim Date: 05/01/2023 5:26:40 PM Sign Date: 05/01/2023 5:26:40 PM [facility] No data available for this section [facility] Evaluation + Plan note Future Appointments Appointment Date:01/22/2024 03:20:00 PM Scheduled Provider:KYRIE LOZANO [employer] ASSEMBLER - ENAMEL SPRAYER Location:[facility] Appointment Type:PC OV Follow Up Future Scheduled Tests Laboratory* Pathology Non-Cigarette Carton Sealer Request 01/09/24 Radiology* US Bladder 12/26/23 * US Renal 12/26/23 [facility] Evaluation + Plan note Future Appointments Appointment Date:01/22/2024 03:20:00 PM Scheduled Provider:KYRIE LOZANO [employer] PATTERN ASSEMBLER - ENAMEL SPRAYER Location:[facility] Appointment Type:PC OV Follow Up Future Scheduled Tests Laboratory* Pathology Non-Cigarette Carton Sealer Request 01/09/24 [facility] Evaluation note* Diagnosis Malignant neoplasm of overlapping sites of bladder (HCC)- Primary Malignant neoplasm of other specified sites of bladder documented in this encounter [facility] note* Diagnosis Malignant neoplasm of overlapping sites of bladder (HCC)- Primary Malignant neoplasm of other specified sites of bladder History of bladder cancer Personal history of malignant neoplasm of bladder Occupational exposure to other risk factors documented in this encounter [facility] note* Diagnosis Screening for genitourinary condition Screening for other and unspecified genitourinary condition [facility] No data available for this section [facility] Progress note No data available for this section [facility] Reason for referral (narrative)No reason for referral information availableWOhio State [facility] System Work Phone: Summary Purpose Family History Relationship Condition Age at Onset Recorded Date/T natalio sister Malignant neoplasm Unknown mother Malignant neoplasm Unknown No Family History Records Found Advance Directives Advance Directive Response Recorded Date/ Time Living Will No June 12 4:10pm Do you have a Healthcare Power of [employer]? No June 12, 2024 4:10pm Advance Directives on File No July 15, 2024 9:32am Living Will No July 15, 2024 9:32am Do you have a Healthcare Power of [employer]? No July 15, 2024 9:32am Advance Directives No July 15 9:32am Living Will No May 07 10:07am Do you have a Healthcare Power of [employer]? No May 07, 2024 10:07am Living Will No July 24, 2024 5:22pm Do you have a Healthcare Power of [employer]? No July 24, 2024 5:22pm Advance Directive Response Recorded Date/ Time Advance Directives on File No July 15, 2024 9:32am Living Will No July 15, 2024 9:32am Do you have a Healthcare Power of [employer]? No July 15, 2024 9:32am Advance Directives No July 15 9:32am Living Will No July 24, 2024 5:22pm Do you have a Healthcare Power of [employer]? No July 24, 2024 5:22pm Advance Directive Response Recorded Date/ Time Advance Directives on File No July 15, 2024 9:32am Living Will No July 15, 2024 9:32am Do you have a Healthcare Power of [employer]? No July 15, 2024 9:32am Advance Directives No July 15 9:32am Do you have a Healthcare Power of [employer]? No December 02, 2024 2:16pm Chief Complaint and Reason for Visit Chief Complaint Admit Date BLADDER CANCER April 04, 2024 3:09pm BLADDER CANCER April 11, 2024 8:12am [facility] PRIOR REVIEW CT 2024 8:21am [facility] NO LABS REVIEW PET April 25 4:08pm CONSULT FOR EBUS/BRONCH/BIOPSY April 172024 10:40am [facility] NO LABS REVIEW PATH May 21 025 10:38am CONSULT - BLADDER May 24, 2024 7 :58am PORT PLACEMENT June 10, 2024 7:49am Insertion, Vascular Port right poss left June 14, 2024 5:52am Insertion, Vascular Port right poss left June 14, 2024 6:58am CHEMO ED June 19, 2024 7:50 am [facility] June 24, 2024 7:4 1am MALIGNANT NEOPLASM OF POSTERIOR WALL OF BLADDER June 24, 2024 8:00am OTV June 26, 2024 8:0 6am [facility] CISPLATIN July 01, 2024 7:4 7am OTV July 04, 2024 7:3 2am [facility] TX July 08, 2024 7:4 0am OTV July 11, 2024 8:0 0am [facility] TX July 15, 2024 7:3 9am OTV July 16, 2024 7:31 am xrt July 16, 2024 7:40 am Amb Documentation July 16, 2024 11:3 0am GENERAL ILLNESS July 24, 2024 5:16 pm Reason for Visit Admit Date Bladder cancer April 04, 2024 3:09pm Bladder cancer 2024 8:21am Bladder cancer April 25, 2024 4: 08pm Bladder cancer April 30, 2024 1 0:40am Abnormal PET scan of lung April 30, 2024 10:40am Abnormal PET scan of lung May 10, 2024 9:58am Mediastinal lymphadenopathy May 10:38am Bladder cancer May 21, 2024 1 0:38am Bladder cancer May 24, 2024 7 :58am Encounter for adjustment and management of vascular access device June 10, 2024 7:49am Bladder cancer June 10, 2024 7:49am Mediastinal lymphadenopathy June 19 7:50am Bladder cancer June 19, 2024 7:50 am Mediastinal lymphadenopathy June 24, 2024 7:41am Bladder cancer June 24, 2024 7:4 1am Bladder cancer June 26, 2024 8:0 6am Mediastinal lymphadenopathy July 01, 2024 7:47am Bladder cancer July 01, 2024 7:4 7am Bladder cancer July 04, 2024 7:3 2am Mediastinal lymphadenopathy July 08, 2024 7:40am Bladder cancer July 08, 2024 7:4 0am Bladder cancer July 11, 2024 8:0 0am Mediastinal lymphadenopathy July 15, 2024 7:39am Bladder cancer July 15, 2024 7:3 9am Bladder cancer July 16, 2024 7:31 am Chief Complaint Admit Date [facility] TX July 08, 2024 7:4 0am OTV July 11, 2024 8:0 0am [facility] [place] July 15, 2024 7:3 9am OTV July 16, 2024 7:31 am Amb Documentation July 16, 2024 11:3 0am GENERAL ILLNESS July 24, 2024 5:16 pm 1 MONTH F/U POST RT August 12, 2024 9:2 0am xrt October 30, 2024 7:30 am BLADDER CA *IV ONLY* October 30, 2024 7:5 8am Reason for Visit Admit Date Mediastinal lymphadenopathy July 08, 2024 7:40am Bladder cancer July 08, 2024 7:4 0am Bladder cancer July 11, 2024 8:0 0am Mediastinal lymphadenopathy July 15, 2024 7:39am Bladder cancer July 15, 2024 7:3 9am Bladder cancer July 16, 2024 7:31 am Mediastinal lymphadenopathy August 12, 2024 9:20am Bladder cancer August 12, 2024 9:2 0am Chief Complaint Admit Date OTV July 11, 2024 8:0 0am [facility] [place] July 15, 2024 7:3 9am OTV July 16, 2024 7:31 am Amb Documentation July 16, 2024 11:3 0am GENERAL ILLNESS July 24, 2024 5:16 pm 1 MONTH F/U POST RT August 12, 2024 9:2 0am xrt October 30, 2024 7:30 am BLADDER CA *IV ONLY* October 30, 2024 7:5 8am 3 MONTH F/U BLADDER November 07, 2024 7:51 am [facility] PRIOR REVIEW [facility] November 07 7:52am Reason for Visit Admit Date Bladder cancer July 11, 2024 8:0 0am Mediastinal lymphadenopathy July 15, 2024 7:39am Bladder cancer July 15, 2024 7:3 9am Bladder cancer July 16, 2024 7:31 am Mediastinal lymphadenopathy August 12, 2024 9:20am Bladder cancer August 12, 2024 9:2 0am Chief Complaint Admit Date OTV July 11, 2024 8:0 0am [facility] [place] July 15, 2024 7:3 9am OTV July 16, 2024 7:31 am Amb Documentation July 16, 2024 11:3 0am GENERAL ILLNESS July 24, 2024 5:16 pm 1 MONTH F/U POST RT August 12, 2024 9:2 0am BLADDER CA *IV ONLY* October 30, 2024 7:5 8am 3 MONTH F/U BLADDER November 07, 2024 7:51 am [facility] PRIOR REVIEW CT November 07 7:52am Reason for Visit Admit Date Bladder cancer July 11, 2024 8:0 0am Bladder cancer July 15, 2024 7:3 9am Mediastinal lymphadenopathy July 15, 2024 7:39am Bladder cancer July 16, 2024 7:31 am Bladder cancer August 12, 2024 9:2 0am Mediastinal lymphadenopathy August 12, 2024 9:20am Bladder cancer November 07, 2024 7:51 am Bladder cancer November 07, 2024 7:52 am Chief Complaint Admit Date BLADDER CA *IV ONLY* October 30, 2024 7:5 8am 3 MONTH F/U BLADDER November 07, 2024 7:51 am [facility] PRIOR REVIEW CT November 07 7:52am xrt November 07, 2024 12:0 0pm Cysto,Litholapaxy,Laser December 13 10:13am Reason for Visit Admit Date Bladder cancer November 07, 2024 7:51 am Bladder cancer November 07, 2024 7:52 am Additional Source Comments Patient Care team informatio n (unrecognized section and content) Team Status: Active Member Role Status Dates Kyrie Lozano ASPARAGUS BUNCHER, ASPARAGUS BUNCHER-C Primary Care Provider Active Team Status: Inactive Member Role Status Dates Kyrie Lozano ASPARAGUS BUNCHER, ASPARAGUS BUNCHER-C Primary Care Provider Active Start: April 042023 End: April 04, 2024 Dr. Donny Martinez MD Attending Provider Active S tart: April 04, 2024 End: April 04, 2024 Dr. Pankaj Lou MD Referring Provider Active Start: April 04, 2024 End: April 04, 2024 Team Status: Inactive Member Role Status Dates Kyrie Lozano ASPARAGUS BUNCHER, ASPARAGUS BUNCHER-C Primary Care Provider Active Start: April 112023 End: April 11, 2024 Dr. Donny Martinez MD Attending Provider Active S tart: April 11, 2024 End: April 11, 2024 Dr. Donny Martinez MD Referring Provider Active S tart: April 11, 2024 End: April 11, 2024 Team Status: Inactive Member Role Status Dates Kyrie Lozano ASPARAGUS BUNCHER, ASPARAGUS BUNCHER-C Primary Care Provider Active Start: April 162023 End: 2024 Kyrie Lozano ASPARAGUS BUNCHER, ASPARAGUS BUNCHER-C Referring Provider Active Start: March End: 2024 Dr. Donny Martinez MD Attending Provider Active S tart: 2024 End: 2024 Team Status: Inactive Member Role Status Dates Kyrie Lzoano ASPARAGUS BUNCHER, ASPARAGUS BUNCHER-C Primary Care Provider Active Start: April End: April 25, 2024 Kyrie Lozano ASPARAGUS BUNCHER, ASPARAGUS BUNCHER-C Referring Provider Active Start: April 25, 2024 End: April 25, 2024 Dr. Donny Martinez MD Attending Provider Active S tart: April 25, 2024 End: April 25, 2024 Team Status: Inactive Member Role Status Dates Kyrie Lozano [employer]ARAGUS BUNCHER, ASPARAGUS BUNCHER-C Primary Care Provider Active Start: April End: April 30, 2024 Dr. Young Samuels DO Attending Provider Active S tart: April 30, 2024 End: April 30, 2024 Dr. Donny Martinez MD Referring Provider Active S tart: April 30, 2024 End: April 30, 2024 Team Status: Inactive Member Role Status Dates Kyrie Lozano [employer]ARAGUS BUNCHER, ASPARAGUS BUNCHER-C Primary Care Provider Active Start: April End: April 30, 2024 Dr. Young Samuels DO Attending Provider Active S tart: April 30, 2024 End: April 30, 2024 Dr. Young Samuels DO Referring Provider Active S tart: April 30, 2024 End: April 30, 2024 Team Status: Active Member Role Status Dates Kyrie Lozano [employer]ARAGUS BUNCHER, ASPARAGUS BUNCHER-C Primary Care Provider Active Start: April Dr. Young Samuels , Attending Provider Active S tart: May 08, 2024 Dr. Young Samuels , Referring Provider Active S tart: May 08, 2024 Dr. Young Samuels , Other Provider Active Start : May 08, 2024 Team Status: Inactive Member Role Status Dates Kyrie Lozano [employer]ARAGUS BUNCHER, ASPARAGUS BUNCHER-C Primary Care Provider Active Start: April End: May 10, 2024 Dr. Young Samuels , Attending Provider Active S tart: May 10, 2024 End: May 10, 2024 Dr. Young Samuels , Referring Provider Active S tart: May 10, 2024 End: May 10, 2024 Team Status: Active Member Role Status Dates Kyrie Lozano [employer]ARAGUS BUNCHER, ASPARAGUS BUNCHER-C Primary Care Provider Active Start: April Dr. Young Samuels , Attending Provider Active S tart: May 10, 2024 Dr. Young Samuels , Referring Provider Active S tart: May 10, 2024 Team Status: Inactive Member Role Status Dates Kyrie Lozano ASPARAGUS BUNCHER, ASPARAGUS BUNCHER-C Primary Care Provider Active Start: May End: May 21, 2024 Kyrie Lozano ASPARAGUS BUNCHER, ASPARAGUS BUNCHER-C Referring Provider Active Start: May 21, 2024 End: May 21, 2024 Dr. Jules Fuentes MD Attending Provider Active Start: May 21, 2024 End: May 21, 2024 Team Status: Inactive Member Role Status Dates Kyrie Lozano ASPARAGUS BUNCHER, ASPARAGUS BUNCHER-C Primary Care Provider Active Start: May End: May 24, 2024 Kyrie Lozano [employer]ARAGUS BUNCHER, ASPARAGUS BUNCHER-C Referring Provider Active Start: May 24, 2024 End: May 24, 2024 Dr. Mahad Villatoro , Attending Provider Active Start: May 24, 2024 End: May 24, 2024 Team Status: Inactive Member Role Status Dates Kyrie Lozano ASPARAGUS BUNCHER, ASPARAGUS BUNCHER-C Primary Care Provider Active Start: June 102024 End: June 10, 2024 Kyrie Lozano ASPARAGUS BUNCHER, ASPARAGUS BUNCHER-C Referring Provider Active Start: May End: June 10, 2024 Dr. Buddy Mccallum MD Attending Provider Active Start: June 10, 2024 End: June 10, 2024 Team Status: Inactive Member Role Status Dates Kyrie Lozano ASPARAGUS BUNCHER, ASPARAGUS BUNCHER-C Primary Care Provider Active Start: June 142024 End: June 14, 2024 Dr. Buddy Mccallum MD Attending Provider Active Start: June 14, 2024 End: June 14, 2024 Dr. Buddy Mccallum MD Referring Provider Active Start: June 14, 2024 End: June 14, 2024 Team Status: Active Member Role Status Dates Kyrie Lozano ASPARAGUS BUNCHER, ASPARAGUS BUNCHER-C Primary Care Provider Active Start: June 142024 Dr. Buddy Mccallum MD Attending Provider Active Start: June 14, 2024 Dr. Buddy Mccallum MD Referring Provider Active Start: June 14, 2024 Dr. Buddy Mccallum MD Other Provider Active Start: June 14, 2024 Team Status: Active Member Role Status Dates Kyrie Lozano ASPARAGUS BUNCHER, ASPARAGUS BUNCHER-C Primary Care Provider Active Start: June 17, 2024 Dr. Mahad Villatoro DO Attending Provider Active Start: June 17, 2024 Dr. Mahad Villatoro DO Referring Provider Active Start: June 17, 2024 Team Status: Inactive Member Role Status Dates Kyrie Lozano ASPARAGUS BUNCHER, ASPARAGUS BUNCHER-C Primary Care Provider Active Start: June 19, 2024 End: June 19, 2024 Kyrie Lozano ASPARAGUS BUNCHER, ASPARAGUS BUNCHER-C Referring Provider Ac tive Start: June 19, 2024 End: June 19, 2024 Shantel Norris [employer] B[employer]CHER, ASPARAGUS BUNCHER-C Attending Provider Active Start: June 19, 2024 End: June 19, 2024 Team Status: Active Member Role Status Dates Kyrie Lozano ASPARAGUS BUNCHER, ASPARAGUS BUNCHER-C Primary Care Provider Active Start: June 20, 2024 Dr. Mahad Villatoro DO Attending Provider Active Start: June 20, 2024 Dr. Mahad Villatoro DO Referring Provider Active Start: June 20, 2024 Team Status: Active Member Role Status Dates Kyrie Lozano ASPARAGUS BUNCHER, ASPARAGUS BUNCHER-C Primary Care Provider Active Start: June 21, 2024 Dr. Mahad Villatoro DO Attending Provider Active Start: June 21, 2024 Dr. Mahad Villatoro DO Referring Provider Active Start: June 21, 2024 Team Status: Inactive Member Role Status Dates Kyrie Lozano ASPARAGUS BUNCHER, ASPARAGUS BUNCHER-C Primary Care Provider Active Start: June 24, 2024 End: June 24, 2024 Kyrie Lozano ASPARAGUS BUNCHER, ASPARAGUS BUNCHER-C Referring Provider Ac tive Start: June 24, 2024 End: June 24, 2024 Dr. Donny Martinez MD Attending Provider Active S tart: June 24, 2024 End: June 24, 2024 Team Status: Active Member Role Status Dates Kyrie Lozano ASPARAGUS BUNCHER, ASPARAGUS BUNCHER-C Primary Care Provider Active Start: June 24, 2024 Dr. Donny Ruiz MD Attending Provider Active Start: June 24, 2024 Dr. Donny Ruiz MD Referring Provider Active Start: June 24, 2024 Team Status: Inactive Member Role Status Dates Kyrie Lozano ASPARAGUS BUNCHER, ASPARAGUS BUNCHER-C Primary Care Provider Active Start: June 26, 2024 End: June 26, 2024 Kyrie Lozano ASPARAGUS BUNCHER, ASPARAGUS BUNCHER-C Referring Provider Ac tive Start: June 26, 2024 End: June 26, 2024 Dr. Mahad Villatoro DO Attending Provider Active Start: June 26, 2024 End: June 26, 2024 Team Status: Inactive Member Role Status Dates Kyrie Lozano [employer]ARAGUS BUNCHER, ASPARAGUS BUNCHER-C Primary Care Provider Active Start: July 01, 2024 End: July 01, 2024 Kyrie Lozano ASPARAGUS BUNCHER, ASPARAGUS BUNCHER-C Referring Provider Ac tive Start: July 01, 2024 End: July 01, 2024 Dr. Donny Martinez MD Attending Provider Active S tart: July 01, 2024 End: July 01, 2024 Team Status: Inactive Member Role Status Dates Kyrie Lozano [employer]US BUNCHER, ASPARAGUS BUNCHER-C Primary Care Provider Active Start: July 04, 2024 End: July 04, 2024 Kyrie Lozano ASPARAGUS BUNCHER, ASPARAGUS BUNCHER-C Referring Provider Ac tive Start: July 04, 2024 End: July 04, 2024 Dr. Mahad Villatoro DO Attending Provider Active Start: July 04, 2024 End: July 04, 2024 Team Status: Inactive Member Role Status Dates Kyrie Lozano ASPARAGUS BUNCHER, ASPARAGUS BUNCHER-C Primary Care Provider Active Start: July 08, 2024 End: July 08, 2024 Kyrie Lozano ASPARAGUS BUNCHER, ASPARAGUS BUNCHER-C Referring Provider Ac tive Start: July 08, 2024 End: July 08, 2024 Dr. Donny Martinez MD Attending Provider Active S tart: July 08, 2024 End: July 08, 2024 Team Status: Inactive Member Role Status Dates Kyrie Lozano ASPARAGUS BUNCHER, ASPARAGUS BUNCHER-C Primary Care Provider Active Start: July 11, 2024 End: July 11, 2024 Kyrie Lozano ASPARAGUS BUNCHER, ASPARAGUS BUNCHER-C Referring Provider Ac tive Start: July 11, 2024 End: July 11, 2024 Dr. Mahad Villatoro DO Attending Provider Active Start: July 11, 2024 End: July 11, 2024 Team Status: Inactive Member Role Status Dates yKrie Lozano ASPARAGUS BUNCHER, ASPARAGUS BUNCHER-C Primary Care Provider Active Start: July 15, 2024 End: July 15, 2024 Kyire Lozano ASPARAGUS BUNCHER, ASPARAGUS BUNCHER-C Referring Provider Ac tive Start: July 15, 2024 End: July 15, 2024 Dr. Donny Martinez MD Attending Provider Active S tart: July 15, 2024 End: July 15, 2024 Team Status: Inactive Member Role Status Dates Kyrie Lozano ASPARAGUS BUNCHER, ASPARAGUS BUNCHER-C Primary Care Provider Active Start: July 16, 2024 End: July 16, 2024 Kyrie Lozano ASPARAGUS BUNCHER, ASPARAGUS BUNCHER-C Referring Provider Ac tive Start: July 16, 2024 End: July 16, 2024 Dr. Mahad Villatoro DO Attending Provider Active Start: July 16, 2024 End: July 16, 2024 Team Status: Active Member Role Status Dates Kyrie Lozano ASPARAGUS BUNCHER, ASPARAGUS BUNCHER-C Primary Care Provider Active Start: July 16, 2024 Dr. Donny Martinez MD Attending Provider Active S tart: July 16, 2024 Dr. Donny Martinez MD Referring Provider Active S tart: July 16, 2024 Team Status: Active Member Role Status Dates Kyrie Lozano ASPARAGUS BUNCHER, ASPARAGUS BUNCHER-C Primary Care Provider Active Start: July 16, 2024 Dr. Mahad Villatoro DO Attending Provider Active Start: July 16, 2024 Team Status: Inactive Member Role Status Dates Kyrie Lozano ASPARAGUS BUNCHER, ASPARAGUS BUNCHER-C Primary Care Provider Active Start: July 24, 2024 End: July 24, 2024 Dr. Jayson Bartlett DO Emergency Provider Active Start: July 24, 2024 End: July 24, 2024 Team Status: Active Member Role/Relationship Status Dates Kyrie Lozano ASPARAGUS BUNCHER, ASPARAGUS BUNCHER-C Primary Care Provider Active Team Status: Inactive Member Role/Relationship Status Dates Kyrie Lozano ASPARAGUS BUNCHER, ASPARAGUS BUNCHER-C Primary Care Provider Active Start: July 08, 2024 End: July 08, 2024 Kyrie Lozano ASPARAGUS BUNCHER, ASPARAGUS BUNCHER-C Referring Provider Ac tive Start: July 08, 2024 End: July 08, 2024 Dr. Donny Martinez MD Attending Provider Active S tart: July 08, 2024 End: July 08, 2024 Team Status: Inactive Member Role/Relationship Status Dates Kyrie Lozano ASPARAGUS BUNCHER, ASPARAGUS BUNCHER-C Primary Care Provider Active Start: July 11, 2024 End: July 11, 2024 Dr. Mahad Villatoro DO Attending Provider Active Start: July 11, 2024 End: July 11, 2024 Dr. Mahad Villatoro DO Referring Provider Active Start: July 11, 2024 End: July 11, 2024 Team Status: Inactive Member Role/Relationship Status Dates Kyrie Lozano ASPARAGUS BUNCHER, ASPARAGUS BUNCHER-C Primary Care Provider Active Start: July 15, 2024 End: July 15, 2024 Kyrie Lozano ASPARAGUS BUNCHER, ASPARAGUS BUNCHER-C Referring Provider Ac tive Start: July 15, 2024 End: July 15, 2024 Dr. Donny Martinez MD Attending Provider Active S tart: July 15, 2024 End: July 15, 2024 Team Status: Inactive Member Role/Relationship Status Dates Kyrie Lozano ASPARAGUS BUNCHER, ASPARAGUS BUNCHER-C Primary Care Provider Active Start: July 16, 2024 End: July 16, 2024 Dr. Mahad Villatoro DO Attending Provider Active Start: July 16, 2024 End: July 16, 2024 Dr. Mahad Villatoro DO Referring Provider Active Start: July 16, 2024 End: July 16, 2024 Team Status: Active Member Role/Relationship Status Dates Kyrie Lozano ASPARAGUS BUNCHER, ASPARAGUS BUNCHER-C Primary Care Provider Active Start: July 16, 2024 Dr. Mahad Villatoro DO Attending Provider Active Start: July 16, 2024 Team Status: Inactive Member Role/Relationship Status Dates Kyrie Rigo Marta ASPARAGUS BUNCHER, ASPARAGUS BUNCHER-C Primary Care Provider Active Start: July 24, 2024 End: July 24, 2024 Dr. Jayson Bartlett DO Attending Provider Active Start: July 24, 2024 End: July 24, 2024 Dr. Jayson Bartlett DO Emergency Provider Active Start: July 24, 2024 End: July 24, 2024 Team Status: Inactive Member Role/Relationship Status Dates Kyrie Lozano ASPARAGUS BUNCHER, ASPARAGUS BUNCHER-C Primary Care Provider Active Start: August 12, 2024 End: August 12, 2024 Kyrie Lozano ASPARAGUS BUNCHER, ASPARAGUS BUNCHER-C Referring Provider Ac tive Start: August 12, 2024 End: August 12, 2024 Dr. Mahad Villatoro DO Attending Provider Active Start: August 12, 2024 End: August 12, 2024 Team Status: Active Member Role/Relationship Status Dates Kyrie Lozano ASPARAGUS BUNCHER, ASPARAGUS BUNCHER-C Primary Care Provider Active Start: October 30, 2024 Dr. Donny Martinez MD Attending Provider Active S tart: October 30, 2024 Dr. Donny Martinez MD Referring Provider Active S tart: October 30, 2024 Team Status: Inactive Member Role/Relationship Status Dates Kyrie Lozano ASPARAGUS BUNCHER, ASPARAGUS BUNCHER-C Primary Care Provider Active Start: October 30, 2024 End: October 30, 2024 Dr. Donny Martinez MD Attending Provider Active S tart: October 30, 2024 End: October 30, 2024 Dr. Donny Martinez MD Referring Provider Active S tart: October 30, 2024 End: October 30, 2024 Team Status: Inactive Member Role/Relationship Status Dates Kyrie Lozano ASPARAGUS BUNCHER, ASPARAGUS BUNCHER-C Primary Care Provider Active Start: July 11, 2024 End: July 11, 2024 Dr. Mahad Villatoro DO Attending Provider Active Start: July 11, 2024 End: July 11, 2024 Dr. Mahad Villatoro DO Referring Provider Active Start: July 11, 2024 End: July 11, 2024 Team Status: Inactive Member Role/Relationship Status Dates Kyrie Lozano ASPARAGUS BUNCHER, ASPARAGUS BUNCHER-C Primary Care Provider Active Start: July 15, 2024 End: July 15, 2024 Kyrie Lozano ASPARAGUS BUNCHER, ASPARAGUS BUNCHER-C Referring Provider Ac tive Start: July 15, 2024 End: July 15, 2024 Dr. Donny Martinez MD Attending Provider Active S tart: July 15, 2024 End: July 15, 2024 Team Status: Inactive Member Role/Relationship Status Dates Kyrie Lozano ASPARAGUS BUNCHER, ASPARAGUS BUNCHER-C Primary Care Provider Active Start: July 16, 2024 End: July 16, 2024 Dr. Mahad Villatoro DO Attending Provider Active Start: July 16, 2024 End: July 16, 2024 Dr. Mahad Villatoro DO Referring Provider Active Start: July 16, 2024 End: July 16, 2024 Team Status: Active Member Role/Relationship Status Dates Kyrie Lozano ASPARAGUS BUNCHER, ASPARAGUS BUNCHER-C Primary Care Provider Active Start: July 16, 2024 Dr. Mahad Villatoro DO Attending Provider Active Start: July 16, 2024 Team Status: Inactive Member Role/Relationship Status Dates Kyrie Lozano ASPARAGUS BUNCHER, ASPARAGUS BUNCHER-C Primary Care Provider Active Start: July 24, 2024 End: July 24, 2024 Dr. Jayson Bartlett DO Attending Provider Active Start: July 24, 2024 End: July 24, 2024 Dr. Jayson Bartlett DO Emergency Provider Active Start: July 24, 2024 End: July 24, 2024 Team Status: Inactive Member Role/Relationship Status Dates Kyrie Lozano ASPARAGUS BUNCHER, ASPARAGUS BUNCHER-C Primary Care Provider Active Start: August 12, 2024 End: August 12, 2024 Kyrie Lozano ASPARAGUS BUNCHER, ASPARAGUS BUNCHER-C Referring Provider Ac tive Start: August 12, 2024 End: August 12, 2024 Dr. Mahad Villatoro DO Attending Provider Active Start: August 12, 2024 End: August 12, 2024 Team Status: Active Member Role/Relationship Status Dates Kyrie Lozano ASPARAGUS BUNCHER, ASPARAGUS BUNCHER-C Primary Care Provider Active Start: October 30, 2024 Dr. Donny Martinez MD Attending Provider Active S tart: October 30, 2024 Dr. Donny Martinez MD Referring Provider Active S tart: October 30, 2024 Team Status: Inactive Member Role/Relationship Status Dates Kyrie Lozano ASPARAGUS BUNCHER, ASPARAGUS BUNCHER-C Primary Care Provider Active Start: October 30, 2024 End: October 30, 2024 Dr. Donny Martinez MD Attending Provider Active S tart: October 30, 2024 End: October 30, 2024 Dr. Donny Martinez MD Referring Provider Active S tart: October 30, 2024 End: October 30, 2024 Team Status: Inactive Member Role/Relationship Status Dates Kyrie Lozano ASPARAGUS BUNCHER, ASPARAGUS BUNCHER-C Primary Care Provider Active Start: November 07, 2024 End: November 07, 2024 Kyrie Lozano ASPARAGUS BUNCHER, ASPARAGUS BUNCHER-C Referring Provider Ac tive Start: November 07, 2024 End: November 07, 2024 Dr. Mahad Villatoro DO Attending Provider Active Start: November 07, 2024 End: November 07, 2024 Team Status: Active Member Role/Relationship Status Dates Kyrie Lozano ASPARAGUS BUNCHER, ASPARAGUS BUNCHER-C Primary Care Provider Active Start: November 07, 2024 Kyrie Lozano ASPARAGUS BUNCHER, ASPARAGUS BUNCHER-C Referring Provider Ac tive Start: November 07, 2024 Dr. Donny Martinez MD Attending Provider Active S tart: November 07, 2024 Team Status: Inactive Member Role/Relationship Status Dates Kyrie Lozano ASPARAGUS BUNCHER, ASPARAGUS BUNCHER-C Primary Care Provider Active Start: October 30, 2024 End: October 30, 2024 Dr. Donny Martinez MD Attending Provider Active S tart: October 30, 2024 End: October 30, 2024 Dr. Donny Martinez MD Referring Provider Active S tart: October 30, 2024 End: October 30, 2024 Team Status: Inactive Member Role/Relationship Status Dates Kyrie Lozano ASPARAGUS BUNCHER, ASPARAGUS BUNCHER-C Primary Care Provider Active Start: November 07, 2024 End: November 07, 2024 Kyrie Lozano ASPARAGUS BUNCHER, ASPARAGUS BUNCHER-C Referring Provider Ac tive Start: November 07, 2024 End: November 07, 2024 Dr. Mahad Villatoro DO Attending Provider Active Start: November 07, 2024 End: November 07, 2024 Team Status: Inactive Member Role/Relationship Status Dates Kyrie Lozano ASPARAGUS BUNCHER, ASPARAGUS BUNCHER-C Primary Care Provider Active Start: November 07, 2024 End: November 07, 2024 Kyrie Lozano ASPARAGUS BUNCHER, ASPARAGUS BUNCHER-C Referring Provider Ac tive Start: November 07, 2024 End: November 07, 2024 Dr. Donny Martinez MD Attending Provider Active S tart: November 07, 2024 End: November 07, 2024 Team Status: Inactive Member Role/Relationship Status Dates Kyrie Lozano ASPARAGUS BUNCHER, ASPARAGUS BUNCHER-C Primary Care Provider Active Start: October 30, 2024 End: October 30, 2024 Dr. Donny Martinez MD Attending Provider Active S tart: October 30, 2024 End: October 30, 2024 Dr. Donny Martinez MD Referring Provider Active S tart: October 30, 2024 End: October 30, 2024 Team Status: Inactive Member Role/Relationship Status Dates Kyrie Lozano ASPARAGUS BUNCHER, ASPARAGUS BUNCHER-C Primary Care Provider Active Start: November 07, 2024 End: November 07, 2024 Kyrie Lozano ASPARAGUS BUNCHER, ASPARAGUS BUNCHER-C Referring Provider Ac tive Start: November 07, 2024 End: November 07, 2024 Dr. Mahad Villatoro DO Attending Provider Active Start: November 07, 2024 End: November 07, 2024 Team Status: Inactive Member Role/Relationship Status Dates Kyrie Lozano ASPARAGUS BUNCHER, ASPARAGUS BUNCHER-C Primary Care Provider Active Start: November 07, 2024 End: November 07, 2024 Kyrie Lozano ASPARAGUS BUNCHER, ASPARAGUS BUNCHER-C Referring Provider Ac tive Start: November 07, 2024 End: November 07, 2024 Dr. Donny Martinez MD Attending Provider Active S tart: November 07, 2024 End: November 07, 2024 Team Status: Active Member Role/Relationship Status Dates Kyrie Lozano ASPARAGUS BUNCHER, ASPARAGUS BUNCHER-C Primary Care Provider Active Start: November 07, 2024 Dr. Donny Martinez MD Attending Provider Active S tart: November 07, 2024 Dr. Donny Martinez MD Referring Provider Active S tart: November 07, 2024 Team Status: Inactive Member Role/Relationship Status Dates Kyrie Lozano ASPARAGUS BUNCHER, ASPARAGUS BUNCHER-C Primary Care Provider Active Start: November End: December 13, 2024 Dr. Pankaj Lou MD Attending Provider Active Start: December 13, 2024 End: December 13, 2024 Dr. Pnakaj Lou MD Referring Provider Active Start: December 13, 2024 End: December 13, 2024 (unrecognized sect ion and content) No Status Records FoundNo Status Records FoundNo Status Records FoundNo Status Records Found INFORMATION SOURCE (unrecogn ized section and content) DATE CREATED AUTHOR 10/15/2023 [facility] ([place]) DATE CREATED AUTHOR AUTHOR'S ORGANIZ ATION 02/10/2024 [facility] DATE CREATED AUTHOR AUTHOR'S ORGANIZ ATION 06/15/2024 [facility] DATE CREATED AUTHOR AUTHOR'S ORGANIZ ATION 12/13/2024 [facility] Source Comments (unrecognize d section and content) In the event this informatio n is protected by the Federal Confidentiality of Alcohol and Drug Abuse Patient Records regulations: The Federal rules restrict any use of the information to criminally investigate or prosecute any alcohol or drug abuse patient.[facility] the event this information is protected by the Federal Confidentiality of Alcohol and Drug Abuse Patient Records regulations: The Federal rules restrict any use of the information to criminally investigate or prosecute any alcohol or drug abuse patient.[facility] the event this information is protected by the Federal Confidentiality of Alcohol and Drug Abuse Patient Records regulations: The Federal rules restrict any use of the information to criminally investigate or prosecute any alcohol or drug abuse patient.[facility] Reason for Visit (unrecogniz ed section and content) Reason Comments Consult Bladder cancer secon d opioion Goals (unrecognized section and content) Goals may be documented in a n alternate section FOR RECORDS PERTAINING TO PATIENTS WHO ARE OR HAVE BEEN ENROLLED IN A CHEMICAL DEPENDENCY/SUBSTANCEABUSE PROGRAM, SOME INFORMATION MAY BE OMITTED. This clinical summary was aggregated from multiple sources. Caution should be exercised in using it in the provision of clinical care. This summary normalizes information from multiple sources, and as a consequence, information in this document may materially change the coding, format and clinical context of patient data. In addition, data may be omitted in some cases. CLINICAL DECISIONS SHOULD BE BASED ON THE PRIMARY CLINICAL RECORDS. [employer] provides no warranty or guarantee of the accuracy or completeness of information in this document.
[2024-12-14] MEDS: Lactated Ringers 1,000 ML 1000 ML IV (21:56)
[2024-12-14] MEDS: fentaNYL 100 MCG/2 ML Ampul IV (22:08)
--- NOTE | 2024-12-14 23:17 | OP.PCM_ITS ---
Operative Report (Standard) Operative Information Date of Procedure: 12/14/24 Pre-Operative Diagnosis: Bladder perforation Post-Operative Diagnosis: The same Surgery/Procedure Performed: Cystoscopy, exploratory laparotomy and repair of bladder perforation dynamite reclaimer: Yes Bicycle Service Technician: Zac Correa Tasks completed by food and beverage assistant: Opening, Closing, Opening & closing, Harvesting grafts, Dissecting tissue, Removing tissue, Implanting device, Altering tissue, Insert Trochanter, Hemostasis: Clamp, Hemostasis: Tie, Hemostasis: Electrocautery, Trocar, Retracting and Other Type of Anesthesia: General RN Documented Start/Stop Times: Operation Date: 12/14/24 22:15 Case Time Anesthesia Start 12/14/24 09:54 Into Room 12/14/24 09:54 Procedure Start 12/14/24 10:20 Procedure Start Time: 10:20 Procedure Stop Time: 23:25 Select all DRAINS/GRAFTS/IMPLANTS that apply: Drains Drain details: quan drain and cage Estimated Blood Loss: 25cc Specimen collected: No Description of surgery: 69-year-old male with a history of invasive bladder cancer who elected to have chemotherapy and radiation treatments to the bladder I then saw him in the office for follow-up he been having a lot of bladder pain and is found to have a significant mount of calcifications stuck in the posterior wall the bladder and what appeared to be necrotic tissue in the bladder so I took him to surgery and use a laser to laser off the stones off the necrotic tissue and then very carefully tried to resect the necrotic tissue the bladder to get thinned out quite thin. So elected sent home with a catheter to see if this will heal properly then called me this today and said that the urine stopped coming out of the Cage catheter and the patient was having lower abdominal pain instructed her to go to the emergency room, in the emergency room workup was done CAT scan was done demonstrated significant amount of free fluid in the abdomen and no urine coming out of the Cage catheter I suspect that he must had a bladder perforation from the area that got thinned out and surgery from the resection of the necrotic tissue and probably the bladder was thinned out from radiation as well and affected. So decided to take the patient back emergently for surgery for exploratory laparotomy suspected bladder perforation and plan for repair of the bladder perforation Patient was taken back to the operating room after induction of anesthesia by Dr. Mckinney he was placed supine on the table he was placed in dorsolithotomy position with legs in stirrups in low lithotomy plan is to do a cystoscopy first and then probably convert to an open exploration through a lower midline incision. The penis and testicles and lower abdomen were prepped and draped in usual fashion, after this was prepped I went inside with the cystoscope but I got the scope into the bladder immediately had a significant return of urine and dark fluid and urine so at first I thought that the Cage catheter was just plugged but when I looked inside with the scope into the lens I saw immediately that the the scope was gone through a perforation in the back of the bladder so he had a perforation about a centimeter in size in the back of the bladder which was draining into the peritoneal cavity so at this point then left the Cage catheter out and then we mated midline incision below the umbilicus down to the through the skin the subcutaneous fat into the fascia open of the fascia in the midline put Jacklyn's on both into the fascia divided the rectus muscle muscle in the midline and then it into the peritoneal cavity sharply once again in the peritoneal cavity there was a significant amount of purulent urine I suspect is probably urine from the leak this was immediately suctioned out I then packed off the bowel with lap pads and we placed a Economy into the abdomen and then we inspected the lower abdomen and fortunately we able to see the perforation in th e bladder and the right in the posterior through the bladder there was a hole perforation. So this was then closed in 2 layers with a 0 Vicryl and a 2-0 Vicryl after closing this and put a catheter in the bladder we filled the bladder up no obvious leakage then I placed a QUAN drain through a lateral stab incision left to drain QUAN drain in the pelvis and then irrigated the bladder again we looked back in to the bladder with the cystoscope the perforation the bladder was closed and there was no obvious hole and no significant amount of leakage from the bladder the bladder did distend nicely left a QUNA drain below below the bladder and then we closed the fascia with a running 0 PDS and then we closed the skin with running subcuticular 4-0 Monocryl and lidocaine and Marcaine was placed in the incision patient ascetic is currently being reversed we did irrigate out the abdomen copiously with over 2 L of saline to irrigate out and irrigated all quadrants out of the abdomen. Patient is currently being extubated and go to PACU and we will keep him on broad spectrum antibiotics and keep him n.p.o. for now and with gravity drainage Cage and a QUAN drainage Surgical Findings: 1 cm perforation of the back of the bladder Complications Complications: No Admit VTE Documentation VTE Present on Admission: No VTE Mechan Device Prophylaxis: SCD's VTE Pharm Prophylaxis ordered?: No
--- OUTSIDE RECORDS SUMMARY | 2024-12-14 23:21 | XMS RPT_ITS | CCD ---
Author Organization [facility] Care Team Providers Care Community Integration Specialist Name Role Phone MARTA MANAGER PATIENT - NURSE MIDWIFE/CLINICAL INSTRUCTOR, KYRIE Faye Primary Care Phys ician DR KEYANNA STEELE DO Attending Unavailable MARTA MANAGER PATIENT - NURSE MIDWIFE/CLINICAL INSTRUCTOR, KYRIE Faye Primary Care U navailable MARTA MANAGER PATIENT - NURSE MIDWIFE/CLINICAL INSTRUCTOR, KYRIE Faye Attending U navailable MARTA MANAGER PATIENT - NURSE MIDWIFE/CLINICAL INSTRUCTOR, KYRIE Faye Primary Care U navailable MARTA MANAGER PATIENT - NURSE MIDWIFE/CLINICAL INSTRUCTOR, KYRIE Faye Attending U navailable MARTA MANAGER PATIENT - NURSE MIDWIFE/CLINICAL INSTRUCTOR, KYRIE Faye Primary Care U navailable MARTA MANAGER PATIENT - NURSE MIDWIFE/CLINICAL INSTRUCTOR, KYRIE Faye Primary Care U navailable MARTA MANAGER PATIENT - NURSE MIDWIFE/CLINICAL INSTRUCTOR, KYRIE Faye Attending U navailable Unavailable Primary Care Provider Unavailabl e WEIGHT, CHRISTOPHER Attending Unavailable [place] NET DEVELOPER CONTRACT-C, Kyrie Sierra Primary Care Provi valeriy Dr. Donny Martinez MD Attending Provider Dr. Pankaj Lou MD Referring Provider [phone] Dr. Donny Martinez MD Referring Provider Marta NET DEVELOPER CONTRACT-CKyrie Referring Provider Dr. Young Samuels DO Attending Provider [phone] Dr. Young Samuels DO Referring Provider Dr. Young Samuels DO Other Provider [phone] Jules Fuentes MD Attending Provider [phone] Dr. Mahad Villatoro DO Attending Provider Dr. Buddy Mccallum MD Attending Provider [phone] Dr. Buddy Mccallum MD Referring Provider [phone] Alessio MALLORY, Dr. Goodwin Other Provider Irving GARY, Dr. Tobin Referring Provider Jr NET DEVELOPER CONTRACT-C, Shantel Attending Provider Sara MALLORY, Dr. Hines Attending Provider Sara MALLORY, Dr. Hines Referring Provider Tri GARY, Dr. Tyler Emergency Provider Marta NET DEVELOPER CONTRACT-C, Kyrie Sierra Primary Care Provi valeriy [place] NET DEVELOPER CONTRACT-C, Kyrie Sierra Referring Provider Juan MALLORY, Dr. Hines Attending Provider Irving GARY, Dr. Tobin Attending Provider Irving GARY, Dr. Tobin Referring Provider Tri GARY, Dr. Tyler Attending Provider Juan MALLORY, Dr. Hines Referring Provider Marta NET DEVELOPER CONTRACT-C, Kyrie Sierra Primary Care Provi valeriy [place] NET DEVELOPER CONTRACT-C, Kyrie Sierra Referring Provider Juan MALLORY, Dr. Hines Attending Provider Juan MALLORY, Dr. Hines Referring Provider Marta NET DEVELOPER CONTRACT, Kyrie Sierra Primary Care Unav ailable Buddy Mccallum Referring Unavailable Buddy Mccallum Attending Unavailable Mahad Villatoro Attending Unavailable Marta NET DEVELOPER CONTRACT, Kyrie Sierra Primary Care Unav ailable Mahad Villatoro Referring Unavailable [place] NET DEVELOPER CONTRACT, Kyrie Sierra Primary Care Unav ailable [place] NET DEVELOPER CONTRACT, Kyrie Sierra Referring Unav ailable Donny Martinez Attending Unavailable [place] NET DEVELOPER CONTRACT, Kyrie Sierra Primary Care Unav ailable Jayson Bartlett Attending Unavailable Marta NET DEVELOPER CONTRACT, Kyrie Sierra Primary Care Unav ailable [place] NET DEVELOPER CONTRACT, Kyrie Sierra Referring Unav ailable Donny Martinez Attending Unavailable [place] NET DEVELOPER CONTRACT, Kyrie Sierra Primary Care Unav ailable [place] NET DEVELOPER CONTRACT, Kyrie Sierra Referring Unav ailable Jr NET DEVELOPER CONTRACT, Shantel Attending Unavailable Marta NET DEVELOPER CONTRACT, Kyrie Sierra Primary Care Unav ailable [place] NET DEVELOPER CONTRACT, Kyrie Sierra Referring Unav ailable Prah, Donny Attending Unavailable [place] NET DEVELOPER CONTRACT, Kyrie Sierra Primary Care Unav ailable Michelle Shaikh Attending Unavailable [place] NET DEVELOPER CONTRACT, Kyrie Rigo Primary Care Unav ailable Mahad Villatoro Attending Unavailable Mahad Villatoro Referring Unavailable [place] NET DEVELOPER CONTRACT, Kyrie Rigo Referring Unav ailable Marta NET DEVELOPER CONTRACT, Kyrie Sierra Primary Care Unav ailable Prah, Donny Attending Unavailable [place] NET DEVELOPER CONTRACT, Kyrie Rigo Primary Care Unav ailable Mahad Villatoro Attending Unavailable Mahad Villatoro Referring Unavailable [place] NET DEVELOPER CONTRACT, Kyrie Sierra Referring Unav ailable Marta NET DEVELOPER CONTRACT, Kyrie Sierra Primary Care Unav ailable Prah, Donny Attending Unavailable Marta NET DEVELOPER CONTRACT, Kyrie Rigo [facility] Care Unav ailable Mahad Villatoro Attending Unavailable Mahad Villatoro Referring Unavailable Marta NET DEVELOPER CONTRACT, Kyrie Sierra Primary Care Unav ailable Marta NET DEVELOPER CONTRACT, Kyrie Sierra Referring Unav ailable Mahad Villatoro Attending Unavailable Marta NET DEVELOPER CONTRACT, Kyrie Sierra Primary Care Unav ailable Marta NET DEVELOPER CONTRACT, Kyrie Sierra Referring Unav ailable Prah, Donny Attending Unavailable [place] NET DEVELOPER CONTRACT, Kyrie Sierra Primary Care Unav ailable Marta NET DEVELOPER CONTRACT, Kyrie Sierra Referring Unav ailable Mahad Villatoro Attending Unavailable Mahad Villatoro Attending Unavailable [place] NET DEVELOPER CONTRACT, Kyrie Sierra [facility] Unav ailable [place] NET DEVELOPER CONTRACT, Kyrie Sierra [facility] Unav ailable SailorsDonny Referring Unavailable Sailors, Donny Attending Unavailable [place] NET DEVELOPER CONTRACT, Kyrie Rigo Primary Care Unav Mahad Gonzalez Referring Unavailable Mahad Villatoro Attending Unavailable Marta NET DEVELOPER CONTRACT, Kyrie Sierra Primary Care Rosaliav ailMahad Herrera Referring Unavailable Mahad Villatoro Attending Unavailable [place] NET DEVELOPER CONTRACT, [facility] Care Unav ailable Buddy Mccallum Attending Unavailable Buddy Mccallum Consulting Unavailable Buddy Mccallum Referring Unavailable Marta NET DEVELOPER CONTRACT, Kyrie Sierra Referring Unav ailable [place] NET DEVELOPER CONTRACT, [facility] Unav ailBuddy Jackson Attending Unavailable Marta NET DEVELOPER CONTRACT, Kyrie Sierra Primary Care Unav ailable Prah, Donny Referring Unavailable Prah, Donny Attending Unavailable [place] NET DEVELOPER CONTRACT, Kyrie Rigo Primary Care Unav ailable Mahad Villatoro Referring Unavailable Mahad Villatoro Attending Unavailable [place] NET DEVELOPER CONTRACT, Kyrie Sierra Primary Care Unav ailable Prah, Donny Attending Unavailable Dasha, Pankaj Mcgee Referring Unavailable Marta NET DEVELOPER CONTRACT, Kyrie Sierra Primary Care Unav ailable Marta NET DEVELOPER CONTRACT, Kyrie Sierra Referring Unav ailable Prah, Donny Attending Unavailable Marta NET DEVELOPER CONTRACT, Kyrie Sierra Primary Care Unav ailable Brown, Young Referring Unavailable BrownYoung Attending Unavailable Marta NET DEVELOPER CONTRACT, Kyrie Rigo Primary Care Unav ailable Brown, Young Referring Unavailable BrownYoung Attending Unavailable Marta NET DEVELOPER CONTRACT, Kyrie Sierra Primary Care Unav ailable Dasha, Pankaj Mcgee Attending Unavailable Dasha, Pankaj Mcgee Referring Unavailable Marta NET DEVELOPER CONTRACT, Kyrie Sierra Primary Care Unav ailable Dasha, Pankaj Mcgee Attending Unavailable Dasha, Pankaj Mcgee Admitting Unavailable Dasha, Pankaj Mcgee Referring Unavailable [place] NET DEVELOPER CONTRACT, Kyrie Sierra Primary Care Unav ailable BrownMaluk Attending Unavailable Young Samuels Referring Unavailable Marta NET DEVELOPER CONTRACT, Kyrie Sierra Primary Care Unav ailable Prah, Donny Attending Unavailable PraDonny knight Referring Unavailable Marta NET DEVELOPER CONTRACT, Kyrie Sierra Primary Care Unav ailable Dasha, Pankaj Mcgee Referring Unavailable Sarabjit De León Attending Unavailable [place] NET DEVELOPER CONTRACT, Kyrie Sierra Primary Care Unav ailable PrahDonny Referring Unavailable Young Samuels Attending Unavailable [place] NET DEVELOPER CONTRACT, Kyrie Sierra Primary Care Unav ailable [place] NET DEVELOPER CONTRACT, Kyrie Sierra Referring Unav ailable Jules Fuentes Attending Unavailable Marta NET DEVELOPER CONTRACT, Kyrie Sierra Primary Care Unav ailable [place] NET DEVELOPER CONTRACT, Kyrie Sierra Referring Unav ailable Mahad Villatoro Attending Unavailable [place] NET DEVELOPER CONTRACT, Kyrie Sierra Primary Care Unav ailable Marta NET DEVELOPER CONTRACT, Kyrie Sierra Referring Unav ailable Prah, Donny Attending Unavailable Marta NET DEVELOPER CONTRACT, Kyrie Sierra Primary Care Unav ailable Brown, Young Referring Unavailable BrownYoung Attending Unavailable Malu Samuelsk Consulting Unavailable Marta NET DEVELOPER CONTRACT, Kyrie Sierra Primary Care Unav ailable Prah, Donny Attending Unavailable Prah, Donny Referring Unavailable Marta HOWELL, Kyrie Sierra Primary Care Unav ailable Dasha, Pankaj Mcgee Attending Unavailable Pankaj Lou Referring Unavailable Marta HOWELL-C, Kyrie Sierra Primary Care Provi valeriy Dr. Donny Martinez MD Attending Provider [phone] Marta NET DEVELOPER CONTRACT-C, Kyrie Sierra Referring Provider Dr. Mahad Villatoro DO Attending Provider Dasha MALLORY, Dr. Pankaj Mcgee Attending Provider Dasha MALLORY, Dr. 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 Misc Medication (3 sources) Start: 12-26-2023 Misc Medication Super beta prostate, 0 Refill(s), 63.6 Start Date: 12/26/23 Status: Ordered ondansetron 8 mg disintegrating oral tablet (6 sources) Serotonin-3 Receptor Antagonist Start: 06-19-2024 take 1 tablet by mouth every eight hours as needed for nausea and vomiting Ondansetron 8 mg tablet,disintegrating Active 8 mg PO Q8H as needed for nausea and vomiting 30 June 19, 2024 1:00am 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 oxyCODONE hydrochloride 5 mg oral tablet (14 sources) Opioid Agonist Start: 12-13-2024 take 1 [...] bladder, unspecified prochlorperazine 10 mg oral tablet (6 sources) Phenothiazine Start: 06-19-2024 take 1 tablet by mouth every six hours as needed for nausea and vomiting Prochlorperazine Maleate 10 mg tablet Active 10 mg PO EVERY 6 HOURS as needed for nausea and vomiting 30 June 19, 2024 1:00am Chemotherapy-induced nausea and vomiting Nausea with vomiting, unspecified Adverse effect of antineoplastic and immunosuppressive drugs, initial encounter Completed/Discontinued Medications Medication Drug Class(es) Dates Sig (Normalized) Sig (Original) acetaminophen 500 mg oral tablet (9 sources) Start: 04-04-2024 End: 11-07-2024 take 2 tablets by mouth every six hours as needed for pain Acetaminophen 500 mg tablet Discontinued 1000 mg PO EVERY 6 HOURS as needed for pain April 04, 2024 1:00am November 07, 2024 8:04am acetaminophen (T YLENOL) 325 mg cap Take by mouth. Active cephalexin 500 mg oral capsule (6 sources) Cephalosporin Antibacterial Start: 11-22-2023 End: 01-30-2024 take 1 capsule by mouth three times daily Cephalexin 500 mg capsule Discontinued 500 mg PO THREE TIMES A DAY November 22, 2023 12:00am January 30, 2024 1:26pm dutasteride 0.5 mg / tamsulosin hydrochloride 0.4 mg oral capsule (3 sources) alpha-Adrenergic Olga Lidia, 5-alpha Reductase Inhibitor Start: 12-26-2023 take 1 capsule by mouth once daily dutasteride-tamsul osin 0.5 mg-0.4 mg oral capsule Dose = 1 cap(s), Oral, qDay, # 30 cap(s), 1 Refill(s), Pharmacy: [id number], BPH associated with nocturia, 165, cm, 12/26/23 14:46:00 EDT, Height, kg, 12/26/23 14:46:00 EDT, Dosing Weight Start Date: 12/26/23 Status: Ordered tamsulosin hydrochloride 0.4 mg oral capsule (6 sources) alpha-Adrenergic Olga Lidia Start: 02-28-2024 End: 05-07-2024 take 1 capsule by mouth at bedtime Tamsulosin 0.4 mg capsule Discontinued 0.4 mg PO AT BEDTIME February 28, 2024 1:00am May 07, 2024 10:06am Problems Active Problems Problem Classification Problem Date Documented Da te Episodic/Chronic Acute and unspecified renal failure (2 sources) Acute renal failure syndrome; Translations: [Acute kidney failure, unspecified] 12-14-2024 Episodic Administrative/social admission (2 sources) Occupational exposure to [...] 06-11-2024 06-11-2024 Episodic Deficiency and other anemia (6 sources) Pancytopenia; Translations: [Other pancytopenia] 07-24-2024 Chronic Fever of unknown origin (6 sources) Fever; Translations: [Fever, unspecified] 07-24-2024 Episodic Genitourinary symptoms and ill-defined conditions (5 sources) Hematuria, unspecified; Translations: [Blood in urine] Onset: 12-26-2023 Episodic Hyperplasia of prostate (3 sources) Nocturia due to benign prostatic hypertrophy 12-26-2023 Chronic Lymphadenitis (20 sources) Mediastinal lymphadenopathy; Translations: [Localized enlarged lymph nodes] Onset: 05-17-2024 05-21-2024 Episodic Malignant neoplasm without specification of site (3 sources) Malignant neoplastic disease; Translations: [Malignant (primary) neoplasm, unspecified] 12-13-2024 Chronic Comment on above: BLADDER Other gastrointestinal disorders (2 sources) Finding of pelvis; Translations: [Other ascites] 12-14-2024 Episodic Other screening for suspected conditions (not mental disorders or infectious disease) (12 sources) Patient encounter status; Translations: [Encounter for [...] 06-19-2024 Episodic Other aftercare (1 source) Other long chain beamer (current) drug therapy; Translations: [Other residential (current) drug therapy] Onset: 07-08-2024 Episodic Other [...] Test Name Value Interpretation Reference Range Facility Absolute lymphocyte countOrd ered By: Simba Muller on 12-14-2024 Lymphocytes Auto (Unsp spec) [#/Vol] 0.45 10*3/uL Low 0.83-4.51 [facility] Absolute neutrophil countOrd ered By: Simba Muller on 12-14-2024 Neutrophils (Bld) [#/Vol] 17.3 10*3/uL High 2.0-7.7 [facility] Anion gap in Serum or Plasma Ordered By: Simba Muller on 12-14-2024 Anion gap [Moles/Vol] 15 mmol/L 5-15 [facility] Automated lymphocyte count a s percentage of total leukocytesOrdered By: Simba Muller on 12-14-2024 Lymphocytes/100 WBC Auto (Unsp spec) 2.4 % Low 19-41 [facility] BUN/creatinine ratioOrdered By: Simba Muller on 12-14-2024 Urea nitrogen/Creatinine [Mass ratio] 11.6 mg/mg 10-20 [facility] Basophil percentageOrdered B y: Simba Muller on 12-14-2024 Basophils/100 WBC (Bld) 0.1 % 0-1 [facility] Carbon dioxide, total [Moles /volume] in Central venous bloodOrdered By: Simba Muller on 12-14-2024 CO2 [Moles/Vol] 19.6 mmol/L Low 21.0-32.0 [facility] Chloride assayOrdered By: Johny Muller on 12-14-2024 Chloride [Moles/Vol] 101 mmol/L 98-108 [facility] Eosinophil percentageOrdered By: Simba Muller on 12-14-2024 Eosinophils/100 WBC (Bld) 0.0 % 0-5 [facility] Erythrocyte distribution wid th ratioOrdered By: Simba Muller on 12-14-2024 Erythrocyte distribution width (RBC) [Ratio] 12.8 % 11.6-14.6 [facility] Erythrocyte distribution wid th standard deviationOrdered By: Simba Muller on 12-14-2024 Erythrocyte distribution width (RBC) [Ratio] 41.5 fl 35.1-43.9 [facility] Glomerular filtration rate ( GFR) estimation/1.73 sq m using serum, plasma, or whole bOrdered By: Simba Muller on 12-14-2024 GFR/1.73 sq M.predicted among non-blacks MDRD (S/P/Bld) [Vol rate/Area] 16 mL/min/{1.73_m2} Low >60 [facility] Comment on above: mL/min/1.73m2 CKD-EP I Creatinine Equation (2020) Hematocrit Auto (Bld) [Volum e fraction]Ordered By: Simba Muller on 12-14-2024 Hematocrit (Bld) [Volume fraction] 37.3 % Low 40-54 [facility] Hemoglobin measurementOrdere d By: Simba Muller on 12-14-2024 Hemoglobin (Bld) [Mass/Vol] 13.4 g/dL 13.0-16.5 [facility] Immature granulocytes/100 WB C Auto (Bld)Ordered By: Simba Muller on 12-14-2024 Immature granulocytes/100 WBC (Bld) 0.600 % 0.0-0.9 [facility] Comment on above: IG% - Immature Granu locytes (promyelocytes, myelocytes and metamyelocytes) > 1% indicates that a LEFT SHIFT is Present. Lactic acid measurementOrder ed By: Simba Muller on 12-14-2024 Lactate [Moles/Vol] 1.7 mmol/L 0.0-2.0 [facility] MCV (mean corpuscular volume ) determinationOrdered By: Simba Muller on 12-14-2024 MCV (RBC) [Entitic vol] 88.4 fL 80-94 [facility] Mean corpuscular hemoglobin (MCH) determinationOrdered By: Simba Muller on 12-14-2024 MCH (RBC) [Entitic mass] 31.8 pg 27.0-32.0 [facility] Mean corpuscular hemoglobin concentration (MCHC) determinationOrdered By: Simba Muller on 12-14-2024 MCHC (RBC) [Mass/Vol] 35.9 g/dL 32-36 [facility] Mean platelet volume determi nationOrdered By: Simba Muller on 12-14-2024 Platelet mean volume (Bld) [Entitic vol] 8.9 fL 6.2-12.0 [facility] Monocyte percentageOrdered B y: Simba Muller on 12-14-2024 Monocytes/100 WBC (Bld) 3.4 % 0-10 [facility] Neutrophil percentageOrdered By: Simba Muller on 12-14-2024 Neutrophils/100 WBC (Bld) 93.5 % High 47-70 [facility] Nucleated red blood cell per centageOrdered By: Simba Muller on 12-14-2024 Nucleated RBC/100 WBC (Bld) [Ratio] 0 % 0-5 [facility] Platelet countOrdered By: Johny Muller on 12-14-2024 Platelets (Bld) [#/Vol] 257 10*3/uL 150-450 [facility] Potassium measurement (mass/ volume)Ordered By: Simba Muller on 12-14-2024 Potassium (Unsp spec) [Mass/Vol] 4.4 mmol/L 3.3-5.1 [facility] RBC Auto (Bld) [#/Vol]Ordere d By: Simba Muller on 12-14-2024 RBC (Bld) [#/Vol] 4.22 10*6/uL Low 4.6-6.2 [facility] Serum creatinine measurement (mass/volume)Ordered By: Simba Muller on 12-14-2024 Creatinine [Mass/Vol] 3.92 mg/dL High 0.70-1.20 [facility] Serum glucose measurement (m ass/volume)Ordered By: Simba Muller on 12-14-2024 Glucose [Mass/Vol] 159 mg/dL High 70-99 [facility] Serum or plasma calcium nicolasa urement (mass/volume)Ordered By: Simba Muller on 12-14-2024 Calcium [Mass/Vol] 9.0 mg/dL 7.6-11.0 [facility] Serum or plasma urea nitroge n measurement (mass/volume)Ordered By: Simba Muller on 12-14-2024 Urea nitrogen [Mass/Vol] 45 mg/dL High 4-19 [facility] Sodium levelOrdered By: Simba Muller on 12-14-2024 Sodium [Moles/Vol] 135 mmol/L 133-145 [facility] White blood cell (WBC) count Ordered By: Simba Muller on 12-14-2024 WBC (Bld) [#/Vol] 18.6 10*3/uL High 4.4-11.0 [facility] Discharge Instructionon 11-16 Discharge Instruction Normal [facility] Discharge Instruction Normal [facility] Operative Reporton Operative Report Normal [facility] NATERAon 11-07-2024 NATJADON SEE SCANNED REPORT Normal [facility] Comment on above: Performed By: #### L 900.0098 ####[facility] [address] [place], [address] Oncology Visit Reporton 10-16 Oncology Visit Report Normal [facility] Radiation Oncology Visiton 0 11-07-2024 Radiation Oncology Visit Normal [facility] Absolute lymphocyte countOrd ered By: Donny Martinez on 10-30-2024 Lymphocytes Auto (Unsp spec) [#/Vol] 0.54 10*3/uL Low 0.83-4.51 [facility] Absolute neutrophil countOrd ered By: Donny Martinez on 10-30-2024 Neutrophils (Bld) [#/Vol] 2.0 10*3/uL 2.0-7.7 [facility] Anion gap in Serum or Plasma Ordered By: Donny Martinez on 10-30-2024 Anion gap [Moles/Vol] 11 mmol/L 5-15 [facility] Automated lymphocyte count a s percentage of total leukocytesOrdered By: Donny Martinez on 10-30-2024 Lymphocytes/100 WBC Auto (Unsp spec) 18.4 % Low 19-41 [facility] BUN/creatinine ratioOrdered By: Donny Martinez on 10-30-2024 Urea nitrogen/Creatinine [Mass ratio] 18.3 mg/mg 10-20 [facility] Basophil percentageOrdered B y: Donny Martinez on 10-30-2024 Basophils/100 WBC (Bld) 0.7 % 0-1 [facility] Bilirubin, totalOrdered By: Donny Martinez on 10-30-2024 Bilirubin [Mass/Vol] 0.45 mg/dL 0.00-1.30 [facility] Blood manual differential co mment interpretation (narrative result)Ordered By: Donny Martinez on 10-30-2024 Manual differential comment J Luis (Bld) [Interp] SCANNED [facility] Comment on above: LYMPHOPENIA NOTED CBC W/Diff, Automatedon 10-15 SMEAR COMMENT SCANNED Normal [facility] Comment on above: Result Comment: LYMP HOPENIA NOTED Performed By: #### L 350.1000, L100.0100, L500.4050, L504.2610 ####[facility] [address] [place], [place], [id number] CT Chest, Abd, Pel w/Contras ton 10-30-2024 CT Chest, Abd, Pel w/Contrast Normal [facility] Carbon dioxide, total [Moles /volume] in Central venous bloodOrdered By: Donny Martinez on 10-30-2024 CO2 [Moles/Vol] 21.5 mmol/L 21.0-32.0 [facility] Chloride assayOrdered By: Zonia Martinez on 10-30-2024 Chloride [Moles/Vol] 106 mmol/L 98-108 [facility] Comprehensive Metabolic Prof ilon 10-30-2024 Albumin [Mass/Vol] 3.9 g/dL Normal 3.4-4.8 [facility] Comment on above: Performed By: #### L 350.1000, L100.0100, L500.4050, L504.2610 ####[facility] [address], [address] Albumin/Globulin [Mass ratio] 1.5 {ratio} Normal 0.9-2.4 [facility] Comment on above: Performed By: #### L 350.1000, L100.0100, L500.4050, L504.2610 ####[facility] [address] [place], [address] ALK PHOS 85 U/L Normal 40-129 [facility] Comment on above: Performed By: #### L 350.1000, L100.0100, L500.4050, L504.2610 ####[facility] [address], [address] ALT [Catalytic activity/Vol] 20 U/L Normal <=46 [facility] Comment on above: Performed By: #### L 350.1000, L100.0100, L500.4050, L504.2610 ####[facility] [address] [place], [address] AST [Catalytic activity/Vol] 22 U/L Normal <=37 [facility] Comment on above: Performed By: #### L 350.1000, L100.0100, L500.4050, L504.2610 ####[facility] [address] [place], [address] Bilirubin [Mass/Vol] 0.45 mg/dL Normal 0.00-1.30 [facility] Comment on above: Performed By: #### L 350.1000, L100.0100, L500.4050, L504.2610 ####[facility] [address] [place], [address] BUN/CRE 18.3 RATIO Normal 10-20 [facility] Comment on above: Performed By: #### L 350.1000, L100.0100, L500.4050, L504.2610 ####[facility] [address] [place], [address] Calcium [Mass/Vol] 9.8 mg/dL Normal 7.6-11.0 [facility] Comment on above: Performed By: #### L 350.1000, L100.0100, L500.4050, L504.2610 ####[facility] [address] [place], [address] Chloride [Moles/Vol] 106 mmol/L Normal 98-108 [facility] Comment on above: Performed By: #### L 350.1000, L100.0100, L500.4050, L504.2610 ####[facility] [address] [place], [address] CO2 [Moles/Vol] 21.5 mmol/L Normal 21.0-32.0 [facility] Comment on above: Performed By: #### L 350.1000, L100.0100, L500.4050, L504.2610 ####[facility] [address] [place], [address] Creatinine [Mass/Vol] 1.01 mg/dL Normal 0.70-1.20 [facility] Comment on above: Performed By: #### L 350.1000, L100.0100, L500.4050, L504.2610 ####[facility] [address] [place], [address] ECRCL 59.09 ml/min Normal 50-250 [facility] Comment on above: Performed By: #### L 350.1000, L100.0100, L500.4050, [id number] ####[facility] [address] [place], [address] GAP 11 Normal 5-15 [facility] Comment on above: Performed By: #### L 350.1000, L100.0100, L500.4050, [id number] ####[facility] [address] [place], [address] GFR/1.73 sq M.predicted among non-blacks MDRD (S/P/Bld) [Vol rate/Area] 81 mL/min/{1.73_m2} Normal >60 [facility] Comment on above: Result Comment: mL/m in/1.73m2 CKD-EPI Creatinine Equation (2020) Performed By: #### L 350.1000, L100.0100, L500.4050, L504.2610 ####[facility] [address] [place], [place], [address] Globulin (S) [Mass/Vol] 2.5 g/dL Normal 2.2-4.2 [facility] Comment on above: Performed By: #### L 350.1000, L100.0100, L500.4050, L504.2610 ####[facility] [address] [place], [address] Glucose [Mass/Vol] 99 mg/dL Normal 70-99 [facility] Comment on above: Performed By: #### L 350.1000, L100.0100, L500.4050, L504.2610 ####[facility] [address] [place], [address] Potassium [Moles/Vol] 4.0 mmol/L Normal 3.3-5.1 [facility] Comment on above: Performed By: #### L 350.1000, L100.0100, L500.4050, L504.2610 ####[facility] [address] [place], [address] Sodium [Moles/Vol] 138 mmol/L Normal 133-145 [facility] Comment on above: Performed By: #### L 350.1000, L100.0100, L500.4050, L504.2610 ####[facility] [address] [place], [address] T PROT 6.4 g/dL Normal 5.9-8.4 [facility] Comment on above: Performed By: #### L 350.1000, L100.0100, L500.4050, L504.2610 ####[facility] [address] [place], [address] Urea nitrogen [Mass/Vol] 19 mg/dL Normal 4-19 [facility] Comment on above: Performed By: #### L 350.1000, L100.0100, L500.4050, L504.2610 ####[facility] [address] [place], [address] Cytology report of Body flui d Cyto stainOrdered By: Donny Martinez on 10-30-2024 Cytology report Cyto stain Doc (Body fld) SEE PATHOLOGY REPORT [facility] Comment on above: Specimen submitted t o Anatomical Pathology Department for testing. Cytology, Body Fluid / CSFon 10-30-2024 CYTOLOGY,BF/CSF SEE PATHOLOGY REPORT Normal [facility] Comment on above: Order Comment: Reaso n for Exam: URINEComments: URINEURINE Result Comment: Spec imen submitted to Anatomical Pathology Department fortesting. Performed By: #### L 350.1000, L100.0100, L500.4050, L504.2610 ####[facility] [address] [place], [address] Eosinophil percentageOrdered By: Donny Martinez on 10-30-2024 Eosinophils/100 WBC (Bld) 3.1 % 0-5 [facility] Erythrocyte distribution wid th ratioOrdered By: Donny Martinez on 10-30-2024 Erythrocyte distribution width (RBC) [Ratio] 12.2 % 11.6-14.6 [facility] Erythrocyte distribution wid th standard deviationOrdered By: Donny Martinez on 10-30-2024 Erythrocyte distribution width (RBC) [Ratio] 41.0 fl 35.1-43.9 [facility] Glomerular filtration rate ( GFR) estimation/1.73 sq m using serum, plasma, or whole bOrdered By: Donny Martinez on 10-30-2024 GFR/1.73 sq M.predicted among non-blacks MDRD (S/P/Bld) [Vol rate/Area] 81 mL/min/{1.73_m2} >60 [facility] Comment on above: mL/min/1.73m2 CKD-EP I Creatinine Equation (2020) Hematocrit Auto (Bld) [Volum e fraction]Ordered By: Donny Martinez on 10-30-2024 Hematocrit (Bld) [Volume fraction] 37.8 % Low 40-54 [facility] Hemoglobin measurementOrdere d By: Donny Martinez on 10-30-2024 Hemoglobin (Bld) [Mass/Vol] 13.6 g/dL 13.0-16.5 [facility] Immature granulocytes/100 WB C Auto (Bld)Ordered By: Donny Martinez on 10-30-2024 Immature granulocytes/100 WBC (Bld) 0.000 % 0.0-0.9 [facility] Comment on above: IG% - Immature Granu locytes (promyelocytes, myelocytes and metamyelocytes) > 1% indicates that a LEFT SHIFT is Present. LDHon 10-30-2024 LDH 191 U/L Normal 87-241 [facility] Comment on above: Order Comment: 1 Performed By: #### L 350.1000, L100.0100, L500.4050, L504.2610 ####[facility] [address] [place], [address] Laboratory - Chemistry and C hemistry - challengeOrdered By: Donny Martinez on 10-30-2024 AST [Catalytic activity/Vol] 22 U/L <38 [facility] Lactate dehydrogenase (LDH) measurementOrdered By: [facility]ny [facility] on [facility]-30-2024 LDH [Catalytic activity/Vol] 191 U/L 87-241 [facility] MCV (mean corpuscular volume ) determinationOrdered By: Donny Martinez on 10-30-2024 MCV (RBC) [Entitic vol] 91.3 fL 80-94 [facility] Mean corpuscular hemoglobin (MCH) determinationOrdered By: Donny Martinez on 10-30-2024 MCH (RBC) [Entitic mass] 32.9 pg High 27.0-32.0 [facility] Mean corpuscular hemoglobin concentration (MCHC) determinationOrdered By: Donny Martinez on 10-30-2024 MCHC (RBC) [Mass/Vol] 36.0 g/dL 32-36 [facility] Mean platelet volume determi nationOrdered By: Donny Martinez on 10-30-2024 Platelet mean volume (Bld) [Entitic vol] 8.9 fL 6.2-12.0 [facility] Monocyte percentageOrdered B y: Donny Martinez on 10-30-2024 Monocytes/100 WBC (Bld) 11.6 % High 0-10 [facility] Neutrophil percentageOrdered By: Donny Martinez on 10-30-2024 Neutrophils/100 WBC (Bld) 66.2 % 47-70 [facility] Nucleated red blood cell per centageOrdered By: Donny Martinez on 10-30-2024 Nucleated RBC/100 WBC (Bld) [Ratio] 0 % 0-5 [facility] Platelet countOrdered By: Zonia Martinez on 10-30-2024 Platelets (Bld) [#/Vol] 157 10*3/uL 150-450 [facility] Potassium measurement (mass/ volume)Ordered By: Donny Martinez on 10-30-2024 Potassium (Unsp spec) [Mass/Vol] 4.0 mmol/L 3.3-5.1 [facility] RBC Auto (Bld) [#/Vol]Ordere d By: Donny Martinez on 10-30-2024 RBC (Bld) [#/Vol] 4.14 10*6/uL Low 4.6-6.2 [facility] Serum creatinine measurement (mass/volume)Ordered By: Donny Martinez on 10-30-2024 Creatinine [Mass/Vol] 1.01 mg/dL 0.70-1.20 [facility] Serum globulin measurementOr dered By: Donny Martinez on 10-30-2024 Globulin (S) [Mass/Vol] 2.5 g/dL 2.2-4.2 [facility] Serum glucose measurement (m ass/volume)Ordered By: Donny Martinez on 10-30-2024 Glucose [Mass/Vol] 99 mg/dL 70-99 [facility] Serum or plasma alanine cheung otransferase (ALT) measurementOrdered By: Donny Martinez on 10-30-2024 ALT [Catalytic activity/Vol] 20 U/L <47 [facility] Serum or plasma albumin nicolasa urement (mass/volume)Ordered By: Donny Martinez on 10-30-2024 Albumin [Mass/Vol] 3.9 g/dL 3.4-4.8 [facility] Serum or plasma albumin/glob ulin mass ratioOrdered By: Donny Martinez on 10-30-2024 Albumin/Globulin [Mass ratio] 1.5 {ratio} 0.9-2.4 [facility] Serum or plasma alkaline daisy sphatase measurementOrdered By: Donny Martinez on 10-30-2024 ALP [Catalytic activity/Vol] 85 U/L 40-129 [facility] Serum or plasma calcium nicolasa urement (mass/volume)Ordered By: Donny Martinez on 10-30-2024 Calcium [Mass/Vol] 9.8 mg/dL 7.6-11.0 [facility] Serum or plasma urea nitroge n measurement (mass/volume)Ordered By: Donny Martinez on 10-30-2024 Urea nitrogen [Mass/Vol] 19 mg/dL 4-19 [facility] Sodium levelOrdered By: Rudy Martinez on 10-30-2024 Sodium [Moles/Vol] 138 mmol/L 133-145 [facility] Special Stain Group IIon Special Stain Group II Normal [facility] Comment on above: Performed By: #### P SSII ####[facility] [address] [place], [place], [id number] Total proteinOrdered By: Mohsen Martinez on 10-30-2024 Protein [Mass/Vol] 6.4 g/dL 5.9-8.4 [facility] White blood cell (WBC) count Ordered By: Donny Martinez on 07-16-2025 WBC (Bld) [#/Vol] 2.9 10*3/uL Low 4.4-11.0 [facility] CBC W/Diff, Automatedon 3 PATH REV Reviewed Normal [facility] Comment on above: Result Comment: SEE REPORT IN PATIENT'S EMR AMENDED REPORT 08/14/24 1331 PATH REV previously reported as: August Performed By: #### L 500.4050, L300.4310, L300.3900, L100.0100, M200.1000, L503.6005 ####[facility] [address] [place], [address] Bilirubin Test strip Ql (U)O rdered By: Donny Martinez on 08-12-2024 Bilirubin Ql (U) Negative Negative [facility] CBC W/Diff, Automatedon - Anisocytosis Ql (Bld) 2+ Normal [facility] Comment on above: Performed By: #### L 350.1000, L501.2300, L504.2610, L501.5200, L100.0100, L400.0001, L500.4050 ####[facility] [address] [place], [address] SMEAR COMMENT SCANNED Normal [facility] Comment on above: Performed By: #### L 350.1000, L501.2300, L504.2610, L501.5200, L100.0100, L400.0001, L500.4050 ####[facility] [address] [place], [address] Comprehensive Metabolic Prof ilon 08-12-2024 Albumin [Mass/Vol] 3.5 g/dL Normal 3.4-4.8 [facility] Comment on above: Performed By: #### L 350.1000, L501.2300, L504.2610, L501.5200, L100.0100, L400.0001, L500.4050 ####[facility] [address] [place], [address] Albumin/Globulin [Mass ratio] 1.5 {ratio} Normal 0.9-2.4 [facility] Comment on above: Performed By: #### L 350.1000, L501.2300, L504.2610, L501.5200, L100.0100, L400.0001, L500.4050 ####[facility] [address] [place], [address] ALK PHOS 80 U/L Normal 40-129 [facility] Comment on above: Performed By: #### L 350.1000, L501.2300, L504.2610, L501.5200, L100.0100, L400.0001, L500.4050 ####[facility] [address] [place], [place], [id number] ALT [Catalytic activity/Vol] 18 U/L Normal <=46 [facility] Comment on above: Performed By: #### L 350.1000, L501.2300, L504.2610, L501.5200, L100.0100, L400.0001, L500.4050 ####[facility] [address] [place], [address] AST [Catalytic activity/Vol] 20 U/L Normal <=37 [facility] Comment on above: Performed By: #### L 350.1000, L501.2300, L504.2610, L501.5200, L100.0100, L400.0001, L500.4050 ####[facility] [address] [place], [address] Bilirubin [Mass/Vol] 0.22 mg/dL Normal 0.00-1.30 [facility] Comment on above: Performed By: #### L 350.1000, L501.2300, L504.2610, L501.5200, L100.0100, L400.0001, L500.4050 ####[facility] [address] [place], [address] BUN/CRE 16.6 RATIO Normal 10-20 [facility] Comment on above: Performed By: #### L 350.1000, L501.2300, L504.2610, L501.5200, L100.0100, L400.0001, L500.4050 ####[facility] [address] [place], [address] Calcium [Mass/Vol] 9.5 mg/dL Normal 7.6-11.0 [facility] Comment on above: Performed By: #### L 350.1000, L501.2300, L504.2610, L501.5200, L100.0100, L400.0001, L500.4050 ####[facility] [address] [place], [address] Chloride [Moles/Vol] 106 mmol/L Normal 98-108 [facility] Comment on above: Performed By: #### L 350.1000, L501.2300, L504.2610, L501.5200, L100.0100, L400.0001, L500.4050 ####[facility] [address] [place], [address] CO2 [Moles/Vol] 22.9 mmol/L Normal 21.0-32.0 [facility] Comment on above: Performed By: #### L 350.1000, L501.2300, L504.2610, L501.5200, L100.0100, L400.0001, L500.4050 ####[facility] [address] [place], [address] Creatinine [Mass/Vol] 1.00 mg/dL Normal 0.70-1.20 [facility] Comment on above: Performed By: #### L 350.1000, L501.2300, L504.2610, L501.5200, L100.0100, L400.0001, L500.4050 ####[facility] [address] [place], [address] ECRCL 59.69 ml/min Normal 50-250 [facility] Comment on above: Performed By: #### L 350.1000, L501.2300, L504.2610, L501.5200, L100.0100, L400.0001, L500.4050 ####[facility] [address] [place], [address] GAP 11 Normal 5-15 [facility] Comment on above: Performed By: #### L 350.1000, L501.2300, L504.2610, L501.5200, L100.0100, L400.0001, L500.4050 ####[facility] [address] [place], [address] GFR/1.73 sq M.predicted among non-blacks MDRD (S/P/Bld) [Vol rate/Area] 81 mL/min/{1.73_m2} Normal >60 [facility] Comment on above: Result Comment: mL/m in/1.73m2 CKD-EPI Creatinine Equation (2020) Performed By: #### L 350.1000, L501.2300, L504.2610, L501.5200, L100.0100, L400.0001, L500.4050 ####[facility] [address] [place], [address] Globulin (S) [Mass/Vol] 2.4 g/dL Normal 2.2-4.2 [facility] Comment on above: Performed By: #### L 350.1000, L501.2300, L504.2610, L501.5200, L100.0100, L400.0001, L500.4050 ####[facility] [address] [place], [address] Glucose [Mass/Vol] 119 mg/dL High 70-99 [facility] Comment on above: Performed By: #### L 350.1000, L501.2300, L504.2610, L501.5200, L100.0100, L400.0001, L500.4050 ####[facility] [address] [place], [address] Potassium [Moles/Vol] 4.1 mmol/L Normal 3.3-5.1 [facility] Comment on above: Performed By: #### L 350.1000, L501.2300, L504.2610, L501.5200, L100.0100, L400.0001, L500.4050 ####[facility] [address] [place], [address] Sodium [Moles/Vol] 139 mmol/L Normal 133-145 [facility] Comment on above: Performed By: #### L 350.1000, L501.2300, L504.2610, L501.5200, L100.0100, L400.0001, L500.4050 ####[facility] [address] [place], [address] T PROT 5.9 g/dL Normal 5.9-8.4 [facility] Comment on above: Performed By: #### L 350.1000, L501.2300, L504.2610, L501.5200, L100.0100, L400.0001, L500.4050 ####[facility] [address] [place], [address] Urea nitrogen [Mass/Vol] 17 mg/dL Normal 4-19 [facility] Comment on above: Performed By: #### L 350.1000, L501.2300, L504.2610, L501.5200, L100.0100, L400.0001, L500.4050 ####[facility] [address] [place], [address] Cytology, Body Fluid / CSFon 08-12-2024 CYTOLOGY,BF/CSF SEE PATHOLOGY REPORT Normal [facility] Comment on above: Order Comment: Reaso n for Exam: URINEComments: URINEURINE Result Comment: Spec imen submitted to Anatomical Pathology Department fortesting. Performed By: #### L 350.1000, L501.2300, L504.2610, L501.5200, L100.0100, L400.0001, L500.4050 ####[facility] [address] [place], [place], [id number] Ketones Test strip Ql (U)Ord ered By: Donny Martinez on 08-12-2024 Ketones Ql (U) Negative Negative [facility] LDHon 08-12-2024 LDH 212 U/L Normal 87-241 [facility] Comment on above: Order Comment: 1 Performed By: #### L 350.1000, L501.2300, L504.2610, L501.5200, L100.0100, L400.0001, L500.4050 ####[facility] [address] [place], [place], [id number] Laboratory - Hematology and Cell countsOrdered By: Donny Martinez on 08-12-2024 Anisocytosis Ql (Bld) 2+ [facility] Magnesiumon 08-12-2024 Magnesium [Mass/Vol] 2.1 mg/dL Normal 1.5-2.2 [facility] Comment on above: Performed By: #### L 350.1000, L501.2300, L504.2610, L501.5200, L100.0100, L400.0001, L500.4050 ####[facility] [address] [place], [place], [phone] Magnesium measurement (mass/ volume)Ordered By: Donny Martinez on 08-12-2024 Magnesium (Unsp spec) [Mass/Vol] 2.1 mg/dL 1.5-2.2 [facility] Microscopic analysis of urin e for red blood cells (RBC)Ordered By: Donny Martinez on 08-12-2024 Microscopic analysis of urine for red blood cells (RBC) 0-5 SEEN /hpf 0-5 [facility] Mucus LM Ql (Urine sed)Order ed By: Donny Martinez on 08-12-2024 Mucus Ql (Urine sed) RARE /hpf [facility] Nitrite Test strip Ql (U)Ord ered By: Donny Martinez on 08-12-2024 Nitrite Ql (U) Negative Negative [facility] Oncology Visit Reporton 07-17 Oncology Visit Report Normal [facility] Phosphoruson 08-12-2024 Phosphate [Mass/Vol] 2.6 mg/dL Low 2.7-4.5 [facility] Comment on above: Performed By: #### L 350.1000, L501.2300, L504.2610, L501.5200, L100.0100, L400.0001, L500.4050 ####[facility] [address] [place], [place], [phone] Protein Test strip Ql (U)Ord ered By: Donny Martinez on 08-12-2024 Protein Ql (U) 30 mg/dl High Negative [facility] Radiation Oncology Visiton 0 08-12-2024 Radiation Oncology Visit Normal [facility] Special Stain Group IIon Special Stain Group II Normal [facility] Comment on above: Performed By: #### P SSII ####[facility] [address] [place], [place], [id number] Squamous epithelial cells de tection in urine sediment by light microscopyOrdered By: Donny Martinez on 08-12-2024 Epithelial cells.squamous LM Ql (Urine sed) 0-5 SEEN /hpf 0-5 [facility] Urinalysis, Completeon 08-12 BACTERIA RARE Normal None Seen [facility] Comment on above: Order Comment: COLLE CTOR TO SPECIFY Performed By: #### L 350.1000, L501.2300, L504.2610, L501.5200, L100.0100, L400.0001, L500.4050 ####[facility] [address] [place], [place], [phone] EPI,SQUAMOUS 0-5 SEEN Normal 0-5 [facility] Comment on above: Order Comment: COLLE CTOR TO SPECIFY Performed By: #### L 350.1000, L501.2300, L504.2610, L501.5200, L100.0100, L400.0001, L500.4050 ####[facility] [address] [place], [address] Mucus Ql (Urine sed) RARE Normal [facility] Comment on above: Order Comment: COLLE CTOR TO SPECIFY Performed By: #### L 350.1000, L501.2300, L504.2610, L501.5200, L100.0100, L400.0001, L500.4050 ####[facility] [address] [place], [address] RBC 0-5 SEEN Normal 0-5 [facility] Comment on above: Order Comment: [facility] CTOR TO SPECIFY Performed By: #### L 350.1000, L501.2300, L504.2610, L501.5200, L100.0100, L400.0001, L500.4050 ####[facility] [address] [place], [place], [address] WBC 10-25 SEEN Normal 0-[address] [place] [address] Comment on above: Order Comment: COLLE CTOR TO SPECIFY Performed By: #### L 350.1000, L501.2300, L504.2610, L501.5200, L100.0100, L400.0001, L500.4050 ####[facility] [address] [place], [place], [address] Urine clarityOrdered By: Mohsen Martinez on 08-12-2024 Clarity (U) Sl. Cloudy Clear [facility] Urine color determinationOrd ered By: Donny Martinez on 08-12-2024 Color (U) Yellow Yellow [facility] Urine glucose detectionOrder ed By: Donny Martinez on 08-12-2024 Glucose Ql (U) Normal mg/dl Normal [facility] Urine leukocyte esterase det ection by dipstickOrdered By: Donny Martinez on 08-12-2024 Leukocyte esterase Test strip Ql (U) 100 /ul High Negative [facility] Urine pHOrdered By: Donny brantley on 08-12-2024 pH (U) 6.0 [pH] 5.0 - 8.0 [facility] Urine sediment bacteria coun t by microscopy (number/high power field)Ordered By: Donny Martinez on 08-12-2024 Bacteria LM.HPF (Urine sed) [#/Area] RARE /hpf None Seen [facility] Urine specific gravity measu rementOrdered By: Donny Martinez on 08-12-2024 Specific gravity (U) [Rel density] 1.015 1.002-1.030 [facility] Urine urobilinogen measureme ntOrdered By: Donny Martinez on 08-12-2024 Urobilinogen Ql (U) Normal mg/dl Normal [facility] White blood cell countOrdere d By: Donny Martinez on 08-12-2024 White blood cell count 10-25 SEEN /hpf 0-5 [facility] Culture, Blood (WB)on 2024 CUB Blood cultures x2, from two different sites No growth in 5 days. Normal [facility] Comment on above: Performed By: #### L 500.4050, L300.4310, L300.3900, L100.0100, M200.1000, L503.6005 ####[facility] [address] [place], [address] Urine Cultureon 07-26-2024 URC Culture exhibits no growth. Normal [facility] Comment on above: Performed By: #### L 400.0001, M100.678, M100.2200 ####[facility] [address] [place], [place], [id number] 12 Lead EKGon 07-24-2024 12 Lead EKG Normal [facility] Absolute lymphocyte countOrd ered By: Jayson Bartlett on 07-24-2024 Lymphocytes Auto (Unsp spec) [#/Vol] 0.16 10*3/uL Low 0.83-4.51 [facility] Absolute neutrophil countOrd ered By: Jayson Bartlett on 07-24-2024 Neutrophils (Bld) [#/Vol] 0.7 10*3/uL Low 2.0-7.7 [facility] Activated partial thrombopla stin time (aPTT) in platelet poor plasma by coagulation aOrdered By: Jayson Bartlett on 07-24-2024 aPTT Coag (PPP) [Time] 25.7 s 24.1-36.2 [facility] Anion gap in Serum or Plasma Ordered By: Jayson Bartlett on 07-24-2024 Anion gap [Moles/Vol] 12 mmol/L 5-15 [facility] Automated lymphocyte count a s percentage of total leukocytesOrdered By: Jayson Bartlett on 07-24-2024 Lymphocytes/100 WBC Auto (Unsp spec) 13.1 % Low 19-41 [facility] BUN/creatinine ratioOrdered By: Jayson Bartlett on 07-24-2024 Urea nitrogen/Creatinine [Mass ratio] 22.9 mg/mg High 10-20 [facility] Basophil percentageOrdered B y: Jayson Bartlett on 07-24-2024 Basophils/100 WBC (Bld) 0.8 % 0-1 [facility] Bilirubin Test strip Ql (U)O rdered By: Jayson Bartlett on 07-24-2024 Bilirubin Ql (U) Negative Negative [facility] Bilirubin, totalOrdered By: Jayson Bartlett on 07-24-2024 Bilirubin [Mass/Vol] 0.40 mg/dL 0.00-1.30 [facility] Blood cultureOrdered By: Marianne Bartlett on 07-24-2024 Bacteria identified Cx Nom (Bld) No growth in 5 days. [facility] Bacteria identified Cx Nom (Bld) No growth in 5 days. [facility] Carbon dioxide, total [Moles /volume] in Central venous bloodOrdered By: Jayson Bartlett on 07-24-2024 CO2 [Moles/Vol] 20.2 mmol/L Low 21.0-32.0 [facility] Chest PA and Lateralon 07-24 Chest PA and Lateral Normal [facility] Chloride assayOrdered By: Miguel Bartlett on 07-24-2024 Chloride [Moles/Vol] 100 mmol/L 98-108 [facility] Comprehensive Metabolic Prof ilon 07-24-2024 Albumin [Mass/Vol] 3.1 g/dL Low 3.4-4.8 [facility] Comment on above: Performed By: #### L 500.4050, L300.4310, L300.3900, L100.0100, M200.1000, L503.6005 ####[facility] [address] [place], [address] Albumin/Globulin [Mass ratio] 1.3 {ratio} Normal 0.9-2.4 [facility] Comment on above: Performed By: #### L 500.4050, L300.4310, L300.3900, L100.0100, M200.1000, L503.6005 ####[facility] [address] [place], [address] ALK PHOS 61 U/L Normal 40-129 [facility] Comment on above: Performed By: #### L 500.4050, L300.4310, L300.3900, L100.0100, M200.1000, L503.6005 ####[facility] [address] [place], [address] ALT [Catalytic activity/Vol] 11 U/L Normal <=46 [facility] Comment on above: Performed By: #### L 500.4050, L300.4310, L300.3900, L100.0100, M200.1000, L503.6005 ####[facility] [address] [place], [address] AST [Catalytic activity/Vol] 12 U/L Normal <=37 [facility] Comment on above: Performed By: #### L 500.4050, L300.4310, L300.3900, L100.0100, M200.1000, L503.6005 ####[facility] [address] [place], [address] Bilirubin [Mass/Vol] 0.40 mg/dL Normal 0.00-1.30 [facility] Comment on above: Performed By: #### L 500.4050, L300.4310, L300.3900, L100.0100, M200.1000, L503.6005 ####[facility] [address] [place], [address] BUN/CRE 22.9 RATIO High 10-20 [facility] Comment on above: Performed By: #### L 500.4050, L300.4310, L300.3900, L100.0100, M200.1000, L503.6005 ####[facility] [address] [place], [address] Calcium [Mass/Vol] 8.7 mg/dL Normal 7.6-11.0 [facility] Comment on above: Performed By: #### L 500.4050, L300.4310, L300.3900, L100.0100, M200.1000, L503.6005 ####[facility] [address] [place], [address] Chloride [Moles/Vol] 100 mmol/L Normal 98-108 [facility] Comment on above: Performed By: #### L 500.4050, L300.4310, L300.3900, L100.0100, M200.1000, L503.6005 ####[facility] [address] [place], [address] CO2 [Moles/Vol] 20.2 mmol/L Low 21.0-32.0 [facility] Comment on above: Performed By: #### L 500.4050, L300.4310, L300.3900, L100.0100, M200.1000, L503.6005 ####[facility] [address] [place], [address] Creatinine [Mass/Vol] 0.84 mg/dL Normal 0.70-1.20 [facility] Comment on above: Performed By: #### L 500.4050, L300.4310, L300.3900, L100.0100, M200.1000, L503.6005 ####[facility] [address] [place], [address] ECRCL 72.10 ml/min Normal 50-250 [facility] Comment on above: Performed By: #### L 500.4050, L300.4310, L300.3900, L100.0100, M200.1000, L503.6005 ####[facility] [address] [place], [address] GAP 12 Normal 5-15 [facility] Comment on above: Performed By: #### L 500.4050, L300.4310, L300.3900, L100.0100, M200.1000, L503.6005 ####[facility] [address] [place], [address] GFR/1.73 sq M.predicted among non-blacks MDRD (S/P/Bld) [Vol rate/Area] 94 mL/min/{1.73_m2} Normal >60 [facility] Comment on above: Result Comment: mL/m in/1.73m2 CKD-EPI Creatinine Equation (2020) Performed By: #### L 500.4050, L300.4310, L300.3900, L100.0100, M200.1000, L503.6005 ####[facility] [address] [place], [address] Globulin (S) [Mass/Vol] 2.3 g/dL Normal 2.2-4.2 [facility] Comment on above: Performed By: #### L 500.4050, L300.4310, L300.3900, L100.0100, M200.1000, L503.6005 ####[facility] [address] [place], [address] Glucose [Mass/Vol] 98 mg/dL Normal 70-99 [facility] Comment on above: Performed By: #### L 500.4050, L300.4310, L300.3900, L100.0100, M200.1000, L503.6005 ####[facility] [address] [place], [address] Potassium [Moles/Vol] 3.5 mmol/L Normal 3.3-5.1 [facility] Comment on above: Performed By: #### L 500.4050, L300.4310, L300.3900, L100.0100, M200.1000, L503.6005 ####[facility] [address] [place], [address] Sodium [Moles/Vol] 132 mmol/L Low 133-145 [facility] Comment on above: Performed By: #### L 500.4050, L300.4310, L300.3900, L100.0100, M200.1000, L503.6005 ####[facility] [address] [place], [address] T PROT 5.4 g/dL Low 5.9-8.4 [facility] Comment on above: Performed By: #### L 500.4050, L300.4310, L300.3900, L100.0100, M200.1000, L503.6005 ####[facility] [address] [place], [address] Urea nitrogen [Mass/Vol] 19 mg/dL Normal 4-19 [facility] Comment on above: Performed By: #### L 500.4050, L300.4310, L300.3900, L100.0100, M200.1000, L503.6005 ####[facility] [address] [place], [address] Emergency Department Summary on 07-24-2024 Emergency Department Summary Normal [facility] Eosinophil percentageOrdered By: Jayson Bartlett on 07-24-2024 Eosinophils/100 WBC (Bld) 0.8 % 0-5 [facility] Epithelial cells.squamous LM Ql (Urine sed)Ordered By: Jayson Bartlett on 07-24-2024 Epithelial cells.squamous LM.HPF (Urine sed) [#/Area] 0 /[HPF] 0-5 [facility] Erythrocyte distribution wid th (RBC) [Ratio]Ordered By: Jayson Bartlett on 07-24-2024 Erythrocyte distribution width (RBC) [Entitic vol] 39.5 fL 35.1-43.9 [facility] Erythrocyte distribution wid th ratioOrdered By: Jayson Bartlett on 07-24-2024 Erythrocyte distribution width (RBC) [Ratio] 14.8 % High 11.6-14.6 [facility] Erythrocyte distribution wid th standard deviationOrdered By: Jayson Bartlett on 07-24-2024 Erythrocyte distribution width (RBC) [Ratio] 39.5 fl 35.1-43.9 [facility] Estimation of creatinine juan aranceOrdered By: Jayson Bartlett on 07-24-2024 Estimated Creatinine Clearance Calc 72.10 ml/min 50-250 [facility] GFR/1.73 sq M.predicted davida g non-blacks MDRD (S/P/Bld) [Vol rate/Area]Ordered By: Jayson Bartlett on 07-24-2024 Estimated GFR (MDRD) Non-Af Amer 94 >60 [facility] Comment on above: mL/min/1.73m2 CKD-EP I Creatinine Equation (2020) Glomerular filtration rate ( GFR) estimation/1.73 sq m using serum, plasma, or whole bOrdered By: Jayson Bartlett on 07-24-2024 GFR/1.73 sq M.predicted among non-blacks MDRD (S/P/Bld) [Vol rate/Area] 94 mL/min/{1.73_m2} >60 [facility] Comment on above: mL/min/1.73m2 CKD-EP I Creatinine Equation (2020) Glucose Ql (U)Ordered By: Miguel Bartlett on 07-24-2024 Urine Glucose (UA) Normal mg/dl Normal [facility] Hematocrit Auto (Bld) [Volum e fraction]Ordered By: Jayson Bartlett on 07-24-2024 Hematocrit (Bld) [Volume fraction] 26.4 % Low 40-54 [facility] Hemoglobin measurementOrdere d By: Jayson Bartlett on 07-24-2024 Hemoglobin (Bld) [Mass/Vol] 9.4 g/dL Low 13.0-16.5 [facility] Immature granulocytes/100 WB C Auto (Bld)Ordered By: Jayson Bartlett on 07-24-2024 Immature granulocytes/100 WBC (Bld) 0.000 % 0.0-0.9 [facility] Comment on above: IG% - Immature Granu locytes (promyelocytes, myelocytes and metamyelocytes) > 1% indicates that a LEFT SHIFT is Present. Influenza virus A and B and SARS-CoV-2 (COVID-19) and Respiratory syncytial virus RNAOrdered By: Jayson Bartlett on 07-24-2024 SARS-CoV-2 (COVID-19) RNA ALICIA+probe Ql (Unsp spec) [facility] normalized rat io (INR) calculationOrdered By: Jayson Bartlett on 07-24-2024 INR Coag (Bld) [Relative time] 1.1 {INR} [facility] Ketones Test strip Ql (U)Ord ered By: Jayson Bartlett on 07-24-2024 Ketones Ql (U) 15 mg/dl High Negative [facility] Laboratory - Chemistry and C hemistry - challengeOrdered By: Jayson Bartlett on 07-24-2024 AST [Catalytic activity/Vol] 12 U/L <38 [facility] Lactic Acidon 07-24-2024 Lactate [Moles/Vol] mmol/L Normal 0.0-2.0 [facility] Comment on above: Order Comment: Y Performed By: #### L 500.4050, L300.4310, L300.3900, L100.0100, M200.1000, L503.6005 ####[facility] [address] [place], [address] Lactic acid measurementOrder ed By: Jayson Bartlett on 07-24-2024 Lactate [Moles/Vol] mmol/L 0.0-2.0 [facility] Lymphocytes Auto (Unsp spec) [#/Vol]Ordered By: Jayson Bartlett on 07-24-2024 Lymphocytes (Bld) [#/Vol] 0.16 10*3/uL Low 0.83-4.51 [facility] Lymphocytes/100 WBC Auto (Un sp spec)Ordered By: Jayson Bartlett on 07-24-2024 Lymphocytes/100 WBC (Bld) 13.1 % Low 19-41 [facility] M100.678on 07-24-2024 M100.678 Pending SARS-CoV-2 (COVID 19) Negative INFLUENZA A Negative INFLUENZA B Negative RSV PCR Negative Normal [facility] Comment on above: Performed By: #### L 400.0001, M100.678, M100.2200 ####[facility] [address] [place], [address] MCV (mean corpuscular volume ) determinationOrdered By: Jayson Bartlett on 07-24-2024 MCV (RBC) [Entitic vol] 81.2 fL 80-94 [facility] Macrocytes Ql (Bld)Ordered B y: Jayson Bartlett on 07-24-2024 Macrocytosis 1+ [facility] Macrocytes detectionOrdered By: Jayson Bartlett on 07-24-2024 Macrocytes Ql (Bld) 1+ [facility] Mean corpuscular hemoglobin (MCH) determinationOrdered By: Jayson Bartlett on 07-24-2024 MCH (RBC) [Entitic mass] 28.9 pg 27.0-32.0 [facility] Mean corpuscular hemoglobin concentration (MCHC) determinationOrdered By: Jayson Bartlett on 07-24-2024 MCHC (RBC) [Mass/Vol] 35.6 g/dL 32-36 [facility] Mean platelet volume determi nationOrdered By: Jayson Bartlett on 07-24-2024 Platelet mean volume (Bld) [Entitic vol] 9.7 fL 6.2-12.0 [facility] Microscopic analysis of urin e for red blood cells (RBC)Ordered By: Jayson Bartlett on 07-24-2024 Microscopic analysis of urine for red blood cells (RBC) 0 SEEN /hpf 0-5 [facility] Urine RBC 0 SEEN /hpf 0-5 [facility] Monocyte percentageOrdered B y: Jayson Bartlett on 07-24-2024 Monocytes/100 WBC (Bld) 25.4 % High 0-10 [facility] Mucus LM Ql (Urine sed)Order ed By: Jayson Bartlett on 07-24-2024 Mucus Ql (Urine sed) 1+ /hpf [facility] Neutrophil percentageOrdered By: Jayson Bartlett on 07-24-2024 Neutrophils/100 WBC (Bld) 59.9 % 47-70 [facility] Nitrite Test strip Ql (U)Ord ered By: Jayson Bartlett on 07-24-2024 Nitrite Ql (U) Negative Negative [facility] Nucleated red blood cell per centageOrdered By: Jayson Bartlett on 07-24-2024 Nucleated RBC/100 WBC (Bld) [Ratio] 0 % 0-5 [facility] Ovalocyte detectionOrdered B y: Jayson Bartlett on 07-24-2024 Ovalocytes LM Ql (Bld) 1+ [facility] Ovalocytes LM Ql (Bld)Ordere d By: Jayson Bartlett on 07-24-2024 Ovalocytes 1+ [facility] Partial Thromboplast Timeon 07-24-2024 aPTT Coag (Bld) [Time] 25.7 s Normal 24.1-36.2 [facility] Comment on above: Performed By: #### L 500.4050, L300.4310, L300.3900, L100.0100, M200.1000, L503.6005 ####[facility] [address] [place], [place], [id number] Pathologist review J Luis (Unsp spec) [Interp]Ordered By: Jayson Bartlett on 07-24-2024 Differential Pathologist's Review [facility] Platelet countOrdered By: Miguel Bartlett on 07-24-2024 Platelets (Bld) [#/Vol] 94 10*3/uL Low 150-450 [facility] Platelet estimateOrdered By: Jayson Bartlett on 07-24-2024 Platelets LM Ql (Bld) MOD DEC ADEQ [facility] Platelets LM Ql (Bld)Ordered By: Jayson Bartlett on 07-24-2024 Platelet Estimate MOD DEC ADEQ [facility] Potassium (Unsp spec) [Mass/ Vol]Ordered By: Jayson Bartlett on 07-24-2024 Potassium [Moles/Vol] 3.5 mmol/L 3.3-5.1 [facility] Potassium measurement (mass/ volume)Ordered By: Jayson Bartlett on 07-24-2024 Potassium (Unsp spec) [Mass/Vol] 3.5 mmol/L 3.3-5.1 [facility] Protein Test strip Ql (U)Ord ered By: Jayson Bartlett on 07-24-2024 Protein Ql (U) 30 mg/dl High Negative [facility] Prothrombin Time w/INRon INR Coag (PPP) [Relative time] 1.1 {INR} Normal [facility] Comment on above: Performed By: #### L 500.4050, L300.4310, L300.3900, L100.0100, M200.1000, L503.6005 ####[facility] [address] [place], [place], [phone] PT Coag (PPP) [Time] 14.2 s Normal 11.7-14.9 [facility] Comment on above: Performed By: #### L 500.4050, L300.4310, L300.3900, L100.0100, M200.1000, L503.6005 ####[facility] [address] [place], [place], [id number] Prothrombin timeOrdered By: Jayson Bartlett on 07-24-2024 PT Coag (PPP) [Time] 14.2 s 11.7-14.9 [facility] RBC Auto (Bld) [#/Vol]Ordere d By: Jayson Bartlett on 07-24-2024 RBC (Bld) [#/Vol] 3.25 10*6/uL Low 4.6-6.2 [facility] Review by pathologistOrdered By: Jayson Bartlett on 07-24-2024 Pathologist review J Luis (Unsp spec) [Interp] Reviewed [facility] Comment on above: Previous reported re sult: Silva db Edited by: MCKAY on 08/14/24:1331SEE REPORT IN PATIENT'S EMR AMENDED REPORT 08/14/24 1331 PATH REV previously reported as: Silva ace Serum creatinine measurement (mass/volume)Ordered By: Jayson Bartlett on 07-24-2024 Creatinine [Mass/Vol] 0.84 mg/dL 0.70-1.20 [facility] Serum globulin measurementOr dered By: Jayson Bartlett on 07-24-2024 Globulin (S) [Mass/Vol] 2.3 g/dL 2.2-4.2 [facility] Serum glucose measurement (m ass/volume)Ordered By: Jayson Bartlett on 07-24-2024 Glucose [Mass/Vol] 98 mg/dL 70-99 [facility] Serum or plasma alanine cheung otransferase (ALT) measurementOrdered By: Jayson Bartlett on 07-24-2024 ALT [Catalytic activity/Vol] 11 U/L <47 [facility] Serum or plasma albumin nicolasa urement (mass/volume)Ordered By: Jayson Bartlett on 07-24-2024 Albumin [Mass/Vol] 3.1 g/dL Low 3.4-4.8 [facility] Serum or plasma albumin/glob ulin mass ratioOrdered By: Jayson Bartlett on 07-24-2024 Albumin/Globulin [Mass ratio] 1.3 {ratio} 0.9-2.4 [facility] Serum or plasma alkaline daisy sphatase measurementOrdered By: Jayson Bartlett on 07-24-2024 ALP [Catalytic activity/Vol] 61 U/L 40-129 [facility] Serum or plasma calcium nicolasa urement (mass/volume)Ordered By: Jayson Bartlett on 07-24-2024 Calcium [Mass/Vol] 8.7 mg/dL 7.6-11.0 [facility] Serum or plasma urea nitroge n measurement (mass/volume)Ordered By: Jayson Bartlett on 07-24-2024 Urea nitrogen [Mass/Vol] 19 mg/dL 4-19 [facility] Sodium levelOrdered By: Jayson Bartlett on 07-24-2024 Sodium [Moles/Vol] 132 mmol/L Low 133-145 [facility] Squamous epithelial cells de tection in urine sediment by light microscopyOrdered By: Jayson Bartlett on 07-24-2024 Epithelial cells.squamous LM Ql (Urine sed) 0 SEEN /hpf 0-5 [facility] Total proteinOrdered By: Marianne Bartlett on 07-24-2024 Protein [Mass/Vol] 5.4 g/dL Low 5.9-8.4 [facility] Toxic granules LM Ql (Bld)Or dered By: Jayson Bartlett on 07-24-2024 Toxic Granulation 2. [facility] Toxic leukocyte granulation detectionOrdered By: Jayson Bartlett on 07-24-2024 Toxic granules LM Ql (Bld) 2. [facility] Urinalysis, Completeon 07-24 Mucus Ql (Urine sed) 1+ /hpf Normal [facility] Comment on above: Order Comment: CLEAN CATCH Performed By: #### L 400.0001, M100.678, M100.2200 ####[facility] [address] [place], [address] WBC 0-5 SEEN Normal 0-5 [facility] Comment on above: Order Comment: CLEAN CATCH Performed By: #### L 400.0001, M100.678, M100.2200 ####[facility] [address] [place], [address] BACTERIA 0 SEEN Normal None Seen [facility] Comment on above: Order Comment: CLEAN CATCH Performed By: #### L 400.0001, M100.678, M100.2200 ####[facility] [address] [place], [address] EPI,SQUAMOUS 0 SEEN Normal 0-5 [facility] Comment on above: Order Comment: CLEAN CATCH Performed By: #### L 400.0001, M100.678, M100.2200 ####[facility] [address] [place], [address] RBC 0 SEEN Normal 0-5 [facility] Comment on above: Order Comment: CLEAN CATCH Performed By: #### L 400.0001, M100.678, M100.0 ####[facility] [address] [place], [address] Urine blood detectionOrdered By: Jayson Bartlett on 07-24-2024 Urine Occult Blood 10 /ul High Negative [facility] Urine clarityOrdered By: Marianne Bartlett on 07-24-2024 Clarity (U) Clear Clear [facility] Urine color determinationOrd ered By: Jayson Bartlett on 07-24-2024 Color (U) Yellow Yellow [facility] Urine cultureOrdered By: Marianne Bartlett on 07-24-2024 Bacteria identified Cx Nom (U) Culture exhibits no growth. [facility] Urine glucose detectionOrder ed By: Jayson Bartlett on 07-24-2024 Glucose Ql (U) Normal mg/dl Normal [facility] Urine leukocyte esterase det ection by dipstickOrdered By: Jayson Bartlett on 07-24-2024 Leukocyte esterase Test strip Ql (U) 25 /ul High Negative [facility] Urine pHOrdered By: Jayson salcido on 07-24-2024 pH (U) 5.0 [pH] 5.0 - 8.0 [facility] Urine sediment bacteria coun t by microscopy (number/high power field)Ordered By: Jayson Bartlett on 07-24-2024 Bacteria LM.HPF (Urine sed) [#/Area] 0 /[HPF] None Seen [facility] Urine specific gravity measu rementOrdered By: Jayson Batrlett on 07-24-2024 Specific gravity (U) [Rel density] 1.020 1.002-1.030 [facility] Urine urobilinogen measureme ntOrdered By: Jayson Bartlett on 07-24-2024 Urobilinogen Ql (U) Normal mg/dl Normal [facility] Urobilinogen Ql (U)Ordered B y: Jayson Bartlett on 07-24-2024 Urine Urobilinogen Normal mg/dl Normal [facility] White blood cell (WBC) count Ordered By: Jayson Bartlett on 07-24-2024 WBC (Bld) [#/Vol] 1.2 10*3/uL Low 4.4-11.0 [facility] Comment on above: CRITICAL VALUE CAMARENA D TO Pushpa SALINAS1948 Mariella Tillman.RESULTS READ BACK BY SAME. White blood cell countOrdere d By: Jayson Bartlett on 07-24-2024 Urine WBC 0-5 SEEN /hpf 0-5 [facility] White blood cell count 0-5 SEEN /hpf 0-5 [facility] aPTT Coag (PPP) [Time]Ordere d By: Jayson Bartlett on 07-24-2024 aPTT Coag (Bld) [Time] 25.7 s 24.1-36.2 [facility] Radiation Oncology Visiton 0 07-16-2024 Radiation Oncology Visit Normal [facility] Absolute neutrophil countOrd ered By: Donny Martinez on 07-15-2024 Neutrophils (Bld) [#/Vol] 3.2 10*3/uL 2.0-7.7 [facility] Anion gap in Serum or Plasma Ordered By: Donny Martinez on 07-15-2024 Anion gap [Moles/Vol] 10 mmol/L 5-15 [facility] Automated blood erythrocyte countOrdered By: Donny Martinez on 07-15-2024 RBC (Bld) [#/Vol] 4.44 10*6/uL Low 4.6-6.2 [facility] Comment on above: Performed By: #### L 501.5200, L500.4050, L100.0100 ####[facility] [address] [place], [address] Automated blood hematocrit ( percentage)Ordered By: Donny Martinez on 07-15-2024 Hematocrit (Bld) [Volume fraction] 35.5 % Low 40-54 [facility] Comment on above: Performed By: #### L 501.5200, L500.4050, L100.0100 ####[facility] [address] [place], [address] Automated lymphocyte count a s percentage of total leukocytesOrdered By: Donny Martinez on 07-15-2024 Lymphocytes/100 WBC (Bld) 9.7 % Low 19-41 [facility] Comment on above: Performed By: #### L 501.5200, L500.4050, L100.0100 ####[facility] [address] [place], [address] BUN/creatinine ratioOrdered By: Donny Martinez on 07-15-2024 Urea nitrogen/Creatinine [Mass ratio] 16.9 mg/mg 10-20 [facility] Basophil percentageOrdered B y: Donny Martinez on 07-15-2024 Basophils/100 WBC (Bld) 0.6 % Normal 0-1 [facility] Comment on above: Performed By: #### L 501.5200, L500.4050, L100.0100 ####[facility] [address] [place], [address] Bilirubin, totalOrdered By: Donny Ann on 07-15-2024 Bilirubin [Mass/Vol] 0.31 mg/dL 0.00-1.30 [facility] CBC W/Diff, Automatedon 06-17 Absolute Lymph 0.45 X10 3/uL Low 0.83-4.51 [facility] Comment on above: Performed By: #### L 501.5200, L500.4050, L100.0100 ####[facility] [address] [place], [address] Absolute Neut 3.2 X10 3/uL Normal 2.0-7.7 [facility] Comment on above: Performed By: #### L 501.5200, L500.4050, L100.0100 ####[facility] [address] [place], [address] IG% 0.400 Normal 0.0-0.9 [facility] Comment on above: Result Comment: IG% - Immature Granulocytes (promyelocytes, myelocytes andmetamyelocytes) > 1% indicates that a LEFT SHIFT is Present. Performed By: #### L 501.5200, L500.4050, L100.0100 ####[facility] [address] [place], [address] Nucleated RBC (Bld) [#/Vol] 0 10*3/uL Normal 0-5 [facility] Comment on above: Performed By: #### L 501.5200, L500.4050, L100.0100 ####[facility] [address] [place], [address] RDW SD 40.7 fl Normal 35.1-43.9 [facility] Comment on above: Performed By: #### L 501.5200, L500.4050, L100.0100 ####[facility] [address] [place], [address] Carbon dioxide, total [Moles /volume] in Central venous bloodOrdered By: Donny Martinez on 07-15-2024 CO2 [Moles/Vol] 20.7 mmol/L Low 21.0-32.0 [facility] Chloride assayOrdered By: Zonia Martinez on 07-15-2024 Chloride [Moles/Vol] 106 mmol/L 98-108 [facility] Comprehensive Metabolic Prof ilon 07-15-2024 Albumin [Mass/Vol] 3.9 g/dL Normal 3.4-4.8 [facility] Comment on above: Performed By: #### L 501.5200, L500.4050, L100.0100 ####[facility] [address] [place], [address] Albumin/Globulin [Mass ratio] 1.6 {ratio} Normal 0.9-2.4 [facility] Comment on above: Performed By: #### L 501.5200, L500.4050, L100.0100 ####[facility] [address] [place], [address] ALK PHOS 89 U/L Normal 40-129 [facility] Comment on above: Performed By: #### L 501.5200, L500.4050, L100.0100 ####[facility] [address] [place], [address] ALT [Catalytic activity/Vol] 15 U/L Normal <=46 [facility] Comment on above: Performed By: #### L 501.5200, L500.4050, L100.0100 ####[facility] [address] [place], [address] AST [Catalytic activity/Vol] 16 U/L Normal <=37 [facility] Comment on above: Performed By: #### L 501.5200, L500.4050, L100.0100 ####[facility] [address] [place], [address] Bilirubin [Mass/Vol] 0.31 mg/dL Normal 0.00-1.30 [facility] Comment on above: Performed By: #### L 501.5200, L500.4050, L100.0100 ####[facility] [address] [place], [address] BUN/CRE 16.9 RATIO Normal 10-20 [facility] Comment on above: Performed By: #### L 501.5200, L500.4050, L100.0100 ####[facility] [address] [place], [address] Calcium [Mass/Vol] 9.4 mg/dL Normal 7.6-11.0 [facility] Comment on above: Performed By: #### L 501.5200, L500.4050, L100.0100 ####[facility] [address] [place], [address] Chloride [Moles/Vol] 106 mmol/L Normal 98-108 [facility] Comment on above: Performed By: #### L 501.5200, L500.4050, L100.0100 ####[facility] [address] [place], [address] CO2 [Moles/Vol] 20.7 mmol/L Low 21.0-32.0 [facility] Comment on above: Performed By: #### L 501.5200, L500.4050, L100.0100 ####[facility] [address] [place], [address] Creatinine [Mass/Vol] 1.00 mg/dL Normal 0.70-1.20 [facility] Comment on above: Performed By: #### L 501.5200, L500.4050, L100.0100 ####[facility] [address] [place], [address] ECRCL 60.65 ml/min Normal 50-250 [facility] Comment on above: Performed By: #### L 501.5200, L500.4050, L100.0100 ####[facility] [address] [place], [address] GAP 10 Normal 5-15 [facility] Comment on above: Performed By: #### L 501.5200, L500.4050, L100.0100 ####[facility] [address] [place], [address] GFR/1.73 sq M.predicted among non-blacks MDRD (S/P/Bld) [Vol rate/Area] 82 mL/min/{1.73_m2} Normal >60 [facility] Comment on above: Result Comment: mL/m in/1.73m2 CKD-EPI Creatinine Equation (2020) Performed By: #### L 501.5200, L500.4050, L100.0100 ####[facility] [address] [place], [address] Globulin (S) [Mass/Vol] 2.3 g/dL Normal 2.2-4.2 [facility] Comment on above: Performed By: #### L 501.5200, L500.4050, L100.0100 ####[facility] [address] [place], [address] Glucose [Mass/Vol] 93 mg/dL Normal 70-99 [facility] Comment on above: Performed By: #### L 501.5200, L500.4050, L100.0100 ####[facility] [address] [place], [address] Potassium [Moles/Vol] 4.3 mmol/L Normal 3.3-5.1 [facility] Comment on above: Performed By: #### L 501.5200, L500.4050, L100.0100 ####[facility] [address] [place], [address] Sodium [Moles/Vol] 137 mmol/L Normal 133-145 [facility] Comment on above: Performed By: #### L 501.5200, L500.4050, L100.0100 ####[facility] [address] [place], [address] T PROT 6.2 g/dL Normal 5.9-8.4 [facility] Comment on above: Performed By: #### L 501.5200, L500.4050, L100.0100 ####[facility] [address] [place], [address] Urea nitrogen [Mass/Vol] 17 mg/dL Normal 4-19 [facility] Comment on above: Performed By: #### L 501.5200, L500.4050, L100.0100 ####[facility] [address] [place], [address] Eosinophil percentageOrdered By: Donny Martinez on 07-15-2024 Eosinophils/100 WBC (Bld) 6.9 % High 0-5 [facility] Comment on above: Performed By: #### L 501.5200, L500.4050, L100.0100 ####[facility] [address] [place], [address] Erythrocyte distribution wid th (RBC) [Ratio]Ordered By: Donny Martinez on 07-15-2024 Erythrocyte distribution width (RBC) [Entitic vol] 40.7 fL 35.1-43.9 [facility] Erythrocyte distribution wid th ratioOrdered By: Donny [facility] on 07-15-2024 Erythrocyte distribution width (RBC) [Ratio] 14.5 % Normal 11.6-14.6 [facility] Comment on above: Performed By: #### L 501.5200, L500.4050, L100.0100 ####[facility] [address] [place], [place], [id number] Estimation of creatinine juan aranceOrdered By: Donny Martinez on 07-15-2024 Estimated Creatinine Clearance Calc 60.65 ml/min 50-250 [facility] GFR/1.73 sq M.predicted davida g non-blacks MDRD (S/P/Bld) [Vol rate/Area]Ordered By: Donny Martinez on 07-15-2024 Estimated GFR (MDRD) Non-Af Amer 82 >60 [facility] Comment on above: mL/min/1.73m2 CKD-EP I Creatinine Equation (2020) Hemoglobin measurementOrdere d By: Donny Martinez on 07-15-2024 Hemoglobin (Bld) [Mass/Vol] 12.4 g/dL Low 13.0-16.5 [facility] Comment on above: Performed By: #### L 501.5200, L500.4050, L100.0100 ####[facility] [address] [place], [address] Immature granulocytes/100 WB C Auto (Bld)Ordered By: Donny Martinez on 07-15-2024 Immature granulocytes/100 WBC (Bld) 0.400 % 0.0-0.9 [facility] Comment on above: IG% - Immature Granu locytes (promyelocytes, myelocytes and metamyelocytes) > 1% indicates that a LEFT SHIFT is Present. Laboratory - Chemistry and C hemistry - challengeOrdered By: Donny Martinez on 07-15-2024 AST [Catalytic activity/Vol] 16 U/L <38 [facility] Lymphocytes Auto (Unsp spec) [#/Vol]Ordered By: Donny Martinez on 07-15-2024 Lymphocytes (Bld) [#/Vol] 0.45 10*3/uL Low 0.83-4.51 [facility] MCV (mean corpuscular volume ) determinationOrdered By: Donny Martinez on 07-15-2024 MCV (RBC) [Entitic vol] 80.0 fL Normal 80-94 [facility] Comment on above: Performed By: #### L 501.5200, L500.4050, L100.0100 ####[facility] [id number] [place], [address] Magnesiumon 07-15-2024 Magnesium [Mass/Vol] 2.1 mg/dL Normal 1.5-2.2 [facility] Comment on above: Performed By: #### L 501.5200, L500.4050, L100.0100 ####[facility] [address] [place], [address] Magnesium (Unsp spec) [Mass/ Vol]Ordered By: Donny Martinez on 07-15-2024 Magnesium [Mass/Vol] 2.1 mg/dL 1.5-2.2 [facility] Mean corpuscular hemoglobin (MCH) determinationOrdered By: [facility]ny [facility]24 MCH (RBC) [Entitic mass] 27.9 pg Normal 27.0-32.0 [facility] Comment on above: Performed By: #### L 501.5200, L500.4050, L100.0100 ####[facility] [address] [place], [address] Mean corpuscular hemoglobin concentration (MCHC) determinationOrdered By: Donny Martinez on 07-15-2024 MCHC (RBC) [Mass/Vol] 34.9 g/dL Normal 32-36 [facility] Comment on above: Performed By: #### L 501.5200, L500.4050, L100.0100 ####[facility] [address] [place], [address] Mean platelet volume determi nationOrdered By: Donny Martinez on 07-15-2024 Platelet mean volume (Bld) [Entitic vol] 8.9 fL Normal 6.2-12.0 [facility] Comment on above: Performed By: #### L 501.5200, L500.4050, L100.0100 ####[facility] [address] [place], [address] Monocyte percentageOrdered B y: Donny Martinez on 07-15-2024 Monocytes/100 WBC (Bld) 12.8 % High 0-10 [facility] Comment on above: Performed By: #### L 501.5200, L500.4050, L100.0100 ####[facility] [address] [place], [address] Neutrophil percentageOrdered By: Donny Martinez on 07-15-2024 Neutrophils/100 WBC (Bld) 69.6 % Normal 47-70 [facility] Comment on above: Performed By: #### L 501.5200, L500.4050, L100.0100 ####[facility] [address] [place], [address] Nucleated red blood cell per centageOrdered By: Donny Martinez on 07-15-2024 Nucleated RBC/100 WBC (Bld) [Ratio] 0 % 0-5 [facility] Oncology Visit Reporton 06-17 Oncology Visit Report Normal [facility] Platelet countOrdered By: Zonia Martinez on 07-15-2024 Platelets (Bld) [#/Vol] 141 10*3/uL Low 150-450 [facility] Comment on above: Performed By: #### L 501.5200, L500.4050, L100.0100 ####[facility] [address] [place], [place], [address] Potassium (Unsp spec) [Mass/ Vol]Ordered By: Donny Martinez on 07-15-2024 Potassium [Moles/Vol] 4.3 mmol/L 3.3-5.1 [facility] Serum creatinine measurement (mass/volume)Ordered By: Donny Martinez on 07-15-2024 Creatinine [Mass/Vol] 1.00 mg/dL 0.70-1.20 [facility] Serum globulin measurementOr dered By: Donny Martinez on 07-15-2024 Globulin (S) [Mass/Vol] 2.3 g/dL 2.2-4.2 [facility] Serum glucose measurement (m ass/volume)Ordered By: Donny Martinez on 07-15-2024 Glucose [Mass/Vol] 93 mg/dL 70-99 [facility] Serum or plasma alanine cheung otransferase (ALT) measurementOrdered By: Donny Martinez on 07-15-2024 ALT [Catalytic activity/Vol] 15 U/L <47 [facility] Serum or plasma albumin nicolasa urement (mass/volume)Ordered By: Donny Martinez on 07-15-2024 Albumin [Mass/Vol] 3.9 g/dL 3.4-4.8 [facility] Serum or plasma albumin/glob ulin mass ratioOrdered By: Donny Martinez on 07-15-2024 Albumin/Globulin [Mass ratio] 1.6 {ratio} 0.9-2.4 [facility] Serum or plasma alkaline daisy sphatase measurementOrdered By: Donny Martinez on 07-15-2024 ALP [Catalytic activity/Vol] 89 U/L 40-129 [facility] Serum or plasma calcium nicolasa urement (mass/volume)Ordered By: Donny Martinez on 07-15-2024 Calcium [Mass/Vol] 9.4 mg/dL 7.6-11.0 [facility] Serum or plasma urea nitroge n measurement (mass/volume)Ordered By: Donny Martinez on 07-15-2024 Urea nitrogen [Mass/Vol] 17 mg/dL 4-19 [facility] Sodium levelOrdered By: Rudy rodriguez Sethantonia on 07-15-2024 Sodium [Moles/Vol] 137 mmol/L 133-145 [facility] Total proteinOrdered By: Mohsen david Sethantonia on 07-15-2024 Protein [Mass/Vol] 6.2 g/dL 5.9-8.4 [facility] White blood cell (WBC) count Ordered By: Donny Juan on 07-15-2024 WBC (Bld) [#/Vol] 4.6 10*3/uL Normal 4.4-11.0 [facility] Comment on above: Performed By: #### L 501.5200, L500.4050, L100.0100 ####[facility] [address] [place], [address] Radiation Oncology Visiton 0 - Radiation Oncology Visit Normal [facility] CBC W/Diff, Automatedon - Absolute Lymph 0.53 X10 3/uL Low 0.83-4.51 [facility] Comment on above: Performed By: #### L 100.0100, L501.5200, L500.4050 ####[facility] [address] [place], [address] Absolute Neut 3.8 X10 3/uL Normal 2.0-7.7 [facility] Comment on above: Performed By: #### L 100.0100, L501.5200, L500.4050 ####[facility] [address] [place], [address] Basophils/100 WBC (Bld) 0.4 % Normal 0-1 [facility] Comment on above: Performed By: #### L 100.0100, L501.5200, L500.4050 ####[facility] [address] [place], [address] Eosinophils/100 WBC (Bld) 3.0 % Normal 0-5 [facility] Comment on above: Performed By: #### L 100.0100, L501.5200, L500.4050 ####[facility] [address] [place], [address] Erythrocyte distribution width (RBC) [Ratio] 14.6 % Normal 11.6-14.6 [facility] Comment on above: Performed By: #### L 100.0100, L501.5200, L500.4050 ####[facility] [address] [place], [address] Hematocrit (Bld) [Volume fraction] 37.4 % Low 40-54 [facility] Comment on above: Performed By: #### L 100.0100, L501.5200, L500.4050 ####[facility] [address] [place], [address] Hemoglobin (Bld) [Mass/Vol] 13.0 g/dL Normal 13.0-16.5 [facility] Comment on above: Performed By: #### L 100.0100, L501.5200, L500.4050 ####[facility] [address] [place], [address] IG% 0.200 Normal 0.0-0.9 [facility] Comment on above: Result Comment: IG% - Immature Granulocytes (promyelocytes, myelocytes andmetamyelocytes) > 1% indicates that a LEFT SHIFT is Present. Performed By: #### L 100.0100, L501.5200, L500.4050 ####[facility] [address] [place], [address] Lymphocytes/100 WBC (Bld) 10.8 % Low 19-41 [facility] Comment on above: Performed By: #### L 100.0100, L501.5200, L500.4050 ####[facility] [address] [place], [address] MCH (RBC) [Entitic mass] 28.0 pg Normal 27.0-32.0 [facility] Comment on above: Performed By: #### L 100.0100, L501.5200, L500.4050 ####[facility] [address] [place], [address] MCHC (RBC) [Mass/Vol] 34.8 g/dL Normal 32-36 [facility] Comment on above: Performed By: #### L 100.0100, L501.5200, L500.4050 ####[facility] [address] [place], [address] MCV (RBC) [Entitic vol] 80.4 fL Normal 80-94 [facility] Comment on above: Performed By: #### L 100.0100, L501.5200, L500.4050 ####[facility] [address] [place], [address] Monocytes/100 WBC (Bld) 9.3 % Normal 0-10 [facility] Comment on above: Performed By: #### L 100.0100, L501.5200, L500.4050 ####[facility] [address] [place], [address] Neutrophils/100 WBC (Bld) 76.3 % High 47-70 [facility] Comment on above: Performed By: #### L 100.0100, L501.5200, L500.4050 ####[facility] [address] [place], [address] Nucleated RBC (Bld) [#/Vol] 0 10*3/uL Normal 0-5 [facility] Comment on above: Performed By: #### L 100.0100, L501.5200, L500.4050 ####[facility] [address] [place], [address] Platelet mean volume (Bld) [Entitic vol] 9.0 fL Normal 6.2-12.0 [facility] Comment on above: Performed By: #### L 100.0100, L501.5200, L500.4050 ####[facility] [address] [place], [address] Platelets (Bld) [#/Vol] 145 10*3/uL Low 150-450 [facility] Comment on above: Performed By: #### L 100.0100, L501.5200, L500.4050 ####[facility] [address] [place], [address] RBC (Bld) [#/Vol] 4.65 10*6/uL Normal 4.6-6.2 [facility] Comment on above: Performed By: #### L 100.0100, L501.5200, L500.4050 ####[facility] [address] [place], [address] RDW SD 42.2 fl Normal 35.1-43.9 [facility] Comment on above: Performed By: #### L 100.0100, L501.5200, L500.4050 ####[facility] [address] [place], [address] WBC (Bld) [#/Vol] 4.9 10*3/uL Normal 4.4-11.0 [facility] Comment on above: Performed By: #### L 100.0100, L501.5200, L500.4050 ####[facility] [address] [place], [address] Absolute Neut Normal 2.0-7.7 [facility] Comment on above: Result Comment: DUPL ICATE ORDER Performed By: #### L 500.4050, L100.0100 ####[facility] [address] [place], [address] HCT Normal 40-54 [facility] Comment on above: Result Comment: DUPL ICATE ORDER Performed By: #### L 500.4050, L100.0100 ####[facility] [address] [place], [address] HGB Normal 13.0-16.5 [facility] Comment on above: Result Comment: DUPL ICATE ORDER Performed By: #### L 500.4050, L100.0100 ####[facility] [address] [place], [address] MCH Normal 27.0-32.0 [facility] Comment on above: Result Comment: DUPL ICATE ORDER Performed By: #### L 500.4050, L100.0100 ####[facility] [address] [place], [address] MCHC Normal 32-36 [facility] Comment on above: Result Comment: DUPL ICATE ORDER Performed By: #### L 500.4050, L100.0100 ####[facility] [address] [place], [address] MCV Normal 80-94 [facility] Comment on above: Result Comment: DUPL ICATE ORDER Performed By: #### L 500.4050, L100.0100 ####[facility] [address] [place], [address] NEUT% Normal 47-70 [facility] Comment on above: Result Comment: DUPL ICATE ORDER Performed By: #### L 500.4050, L100.0100 ####[facility] [address] [place], [address] PLT Normal 150-450 [facility] Comment on above: Result Comment: DUPL ICATE ORDER Performed By: #### L 500.4050, L100.0100 ####[facility] [address] [place], [address] RBC Normal 4.6-6.2 [facility] Comment on above: Result Comment: DUPL ICATE ORDER Performed By: #### L 500.4050, L100.0100 ####[facility] [address] [place], [address] RDW CV Normal 11.6-14.6 [facility] Comment on above: Result Comment: DUPL ICATE ORDER Performed By: #### L 500.4050, L100.0100 ####[facility] [address] [place], [address] RDW SD Normal 35.1-43.9 [facility] Comment on above: Result Comment: DUPL ICATE ORDER Performed By: #### L 500.4050, L100.0100 ####[facility] [address] [place], [address] WBC Normal 4.4-11.0 [facility] Comment on above: Result Comment: DUPL ICATE ORDER Performed By: #### L 500.4050, L100.0100 ####[facility] [address] [place], [address] Comprehensive Metabolic Prof meon 07-08-2024 Albumin [Mass/Vol] 3.9 g/dL Normal 3.4-4.8 [facility] Comment on above: Performed By: #### L 100.0100, L501.5200, L500.4050 ####[facility] [address] [place], [address] Albumin/Globulin [Mass ratio] 1.7 {ratio} Normal 0.9-2.4 [facility] Comment on above: Performed By: #### L 100.0100, L501.5200, L500.4050 ####[facility] [address] [place], [address] ALK PHOS 81 U/L Normal 40-129 [facility] Comment on above: Performed By: #### L 100.0100, L501.5200, L500.4050 ####[facility] [address] [place], [address] ALT [Catalytic activity/Vol] 21 U/L Normal <=46 [facility] Comment on above: Performed By: #### L 100.0100, L501.5200, L500.4050 ####[facility] [address], [address] AST [Catalytic activity/Vol] 18 U/L Normal <=37 [facility] Comment on above: Performed By: #### L 100.0100, L501.5200, L500.4050 ####[facility] [address] [place], [address] Bilirubin [Mass/Vol] 0.49 mg/dL Normal 0.00-1.30 [facility] Comment on above: Performed By: #### L 100.0100, L501.5200, L500.4050 ####[facility] [address] [place], [address] BUN/CRE 19.3 RATIO Normal 10-20 [facility] Comment on above: Performed By: #### L 100.0100, L501.5200, L500.4050 ####[facility] [address] [place], [address] Calcium [Mass/Vol] 9.6 mg/dL Normal 7.6-11.0 [facility] Comment on above: Performed By: #### L 100.0100, L501.5200, L500.4050 ####[facility] [address] [place], [address] Chloride [Moles/Vol] 104 mmol/L Normal 98-108 [facility] Comment on above: Performed By: #### L 100.0100, L501.5200, L500.4050 ####[facility] [address] [place], [address] CO2 [Moles/Vol] 23.9 mmol/L Normal 21.0-32.0 [facility] Comment on above: Performed By: #### L 100.0100, L501.5200, L500.4050 ####[facility] [address] [place], [address] Creatinine [Mass/Vol] 1.00 mg/dL Normal 0.70-1.20 [facility] Comment on above: Performed By: #### L 100.0100, L501.5200, L500.4050 ####[facility] [address] [place], [address] ECRCL 60.65 ml/min Normal 50-250 [facility] Comment on above: Performed By: #### L 100.0100, L501.5200, L500.4050 ####[facility] [address] [place], [address] GAP 11 Normal 5-15 [facility] Comment on above: Performed By: #### L 100.0100, L501.5200, L500.4050 ####[facility] [address] [place], [address] GFR/1.73 sq M.predicted among non-blacks MDRD (S/P/Bld) [Vol rate/Area] 81 mL/min/{1.73_m2} Normal >60 [facility] Comment on above: Result Comment: mL/m in/1.73m2 CKD-EPI Creatinine Equation (2020) Performed By: #### L 100.0100, L501.5200, L500.4050 ####[facility] [address] [place], [address] Globulin (S) [Mass/Vol] 2.3 g/dL Normal 2.2-4.2 [facility] Comment on above: Performed By: #### L 100.0100, L501.5200, L500.4050 ####[facility] [address] [place], [address] Glucose [Mass/Vol] 90 mg/dL Normal 70-99 [facility] Comment on above: Performed By: #### L 100.0100, L501.5200, L500.4050 ####[facility] [address] [place], [address] Potassium [Moles/Vol] 3.9 mmol/L Normal 3.3-5.1 [facility] Comment on above: Performed By: #### L 100.0100, L501.5200, L500.4050 ####[facility] [address] [place], [address] Sodium [Moles/Vol] 138 mmol/L Normal 133-145 [facility] Comment on above: Performed By: #### L 100.0100, L501.5200, L500.4050 ####[facility] [address] [place], [address] T PROT 6.2 g/dL Normal 5.9-8.4 [facility] Comment on above: Performed By: #### L 100.0100, L501.5200, L500.4050 ####[facility] [address], [address] Urea nitrogen [Mass/Vol] 19 mg/dL Normal 4-19 [facility] Comment on above: Performed By: #### L 100.0100, L501.5200, L500.4050 ####[facility] [address], [address] ALB Normal 3.4-4.8 [facility] Comment on above: Result Comment: DUPL ICATE ORDER Performed By: #### L 500.4050, L100.0100 ####[facility] [address] [place], [address] ALK PHOS Normal 40-129 [facility] Comment on above: Result Comment: DUPL ICATE ORDER Performed By: #### L 500.4050, L100.0100 ####[facility] [address] [place], [address] ALT Normal <=46 [facility] Comment on above: Result Comment: DUPL ICATE ORDER Performed By: #### L 500.4050, L100.0100 ####[facility] [address] [place], [address] AST Normal <=37 [facility] Comment on above: Result Comment: DUPL ICATE ORDER Performed By: #### L 500.4050, L100.0100 ####[facility] [address] [place], [address] BUN Normal 4-19 [facility] Comment on above: Result Comment: DUPL ICATE ORDER Performed By: #### L 500.4050, L100.0100 ####[facility] [address] [place], [address] BUN/CRE Normal 10-20 [facility] Comment on above: Result Comment: DUPL ICATE ORDER Performed By: #### L 500.4050, L100.0100 ####[facility] [address] [place], [address] Calcium Normal 7.6-11.0 [facility] Comment on above: Result Comment: DUPL ICATE ORDER Performed By: #### L 500.4050, L100.0100 ####[facility] [address] [place], [address] CL Normal 98-108 [facility] Comment on above: Result Comment: DUPL ICATE ORDER Performed By: #### L 500.4050, L100.0100 ####[facility] [address] [place], [address] CO2 Normal 21.0-32.0 [facility] Comment on above: Result Comment: DUPL ICATE ORDER Performed By: #### L 500.4050, L100.0100 ####[facility] [address] [place], [address] CREAT,SERUM Normal 0.70-1.20 [facility] Comment on above: Result Comment: DUPL ICATE ORDER Performed By: #### L 500.4050, L100.0100 ####[facility] [address] [place], [address] eGFR Normal >60 [facility] Comment on above: Result Comment: DUPL ICATE ORDER Performed By: #### L 500.4050, L100.0100 ####[facility] [address] [place], [address] GAP Normal 5-15 [facility] Comment on above: Result Comment: DUPL ICATE ORDER Performed By: #### L 500.4050, L100.0100 ####[facility] [address] [place], [address] GLU Normal 70-99 [facility] Comment on above: Result Comment: DUPL ICATE ORDER Performed By: #### L 500.4050, L100.0100 ####[facility] [address] [place], [address] Potassium Normal 3.3-5.1 [facility] Comment on above: Result Comment: DUPL ICATE ORDER Performed By: #### L 500.4050, L100.0100 ####[facility] [address] [place], [address] T BILI Normal 0.00-1.30 [facility] Comment on above: Result Comment: DUPL ICATE ORDER Performed By: #### L 500.4050, L100.0100 ####[facility] [address] [place], [address] T PROT Normal 5.9-8.4 [facility] Comment on above: Result Comment: DUPL ICATE ORDER Performed By: #### L 500.4050, L100.0100 ####[facility] [address] [place], [address] Comprehensive Metabolic Profil Normal 133-145 [facility] Comment on above: Result Comment: DUPL ICATE ORDER Performed By: #### L 500.4050, L100.0100 ####[facility] [address] [place], [address] Magnesiumon - Magnesium [Mass/Vol] 2.2 mg/dL Normal 1.5-2.2 [facility] Comment on above: Performed By: #### L 100.0100, L501.5200, L500.4050 ####[facility] [address] [place], [address] Oncology Visit Reporton -2 Oncology Visit Report Normal [facility] Radiation Oncology Visiton 0 - Radiation Oncology Visit Normal [facility] CBC W/Diff, Automatedon - Absolute Lymph 0.68 X10 3/uL Low 0.83-4.51 [facility] Comment on above: Performed By: #### L 501.5200, L500.4050, L100.0100 ####[facility] [address] [place], [address] Absolute Neut 2.8 X10 3/uL Normal 2.0-7.7 [facility] Comment on above: Performed By: #### L 501.5200, L500.4050, L100.0100 ####[facility] [address] [place], [address] Basophils/100 WBC (Bld) 0.5 % Normal 0-1 [facility] Comment on above: Performed By: #### L 501.5200, L500.4050, L100.0100 ####[facility] [address] [place], [address] Eosinophils/100 WBC (Bld) 5.0 % Normal 0-5 [facility] Comment on above: Performed By: #### L 501.5200, L500.4050, L100.0100 ####[facility] [address] [place], [address] Erythrocyte distribution width (RBC) [Ratio] 14.9 % High 11.6-14.6 [facility] Comment on above: Performed By: #### L 501.5200, L500.4050, L100.0100 ####[facility] [address] [place], [address] Hematocrit (Bld) [Volume fraction] 38.5 % Low 40-54 [facility] Comment on above: Performed By: #### L 501.5200, L500.4050, L100.0100 ####[facility] [address] [place], [address] Hemoglobin (Bld) [Mass/Vol] 12.9 g/dL Low 13.0-16.5 [facility] Comment on above: Performed By: #### L 501.5200, L500.4050, L100.0100 ####[facility] [address] [place], [address] IG% 0.500 Normal 0.0-0.9 [facility] Comment on above: Result Comment: IG% - Immature Granulocytes (promyelocytes, myelocytes andmetamyelocytes) > 1% indicates that a LEFT SHIFT is Present. Performed By: #### L 501.5200, L500.4050, L100.0100 ####[facility] [address] [place], [address] Lymphocytes/100 WBC (Bld) 16.9 % Low 19-41 [facility] Comment on above: Performed By: #### L 501.5200, L500.4050, L100.0100 ####[facility] [address] [place], [address] MCH (RBC) [Entitic mass] 27.3 pg Normal 27.0-32.0 [facility] Comment on above: Performed By: #### L 501.5200, L500.4050, L100.0100 ####[facility] [address] [place], [address] MCHC (RBC) [Mass/Vol] 33.5 g/dL Normal 32-36 [facility] Comment on above: Performed By: #### L 501.5200, L500.4050, L100.0100 ####[facility] [address] [place], [address] MCV (RBC) [Entitic vol] 81.6 fL Normal 80-94 [facility] Comment on above: Performed By: #### L 501.5200, L500.4050, L100.0100 ####[facility] [address] [place], [address] Monocytes/100 WBC (Bld) 8.7 % Normal 0-10 [facility] Comment on above: Performed By: #### L 501.5200, L500.4050, L100.0100 ####[facility] [address] [place], [address] Neutrophils/100 WBC (Bld) 68.4 % Normal 47-70 [facility] Comment on above: Performed By: #### L 501.5200, L500.4050, L100.0100 ####[facility] [address] [place], [address] Nucleated RBC (Bld) [#/Vol] 0 10*3/uL Normal 0-5 [facility] Comment on above: Performed By: #### L 501.5200, L500.4050, L100.0100 ####[facility] [address] [place], [address] Platelet mean volume (Bld) [Entitic vol] 9.5 fL Normal 6.2-12.0 [facility] Comment on above: Performed By: #### L 501.5200, L500.4050, L100.0100 ####[facility] [address] [place], [address] Platelets (Bld) [#/Vol] 180 10*3/uL Normal 150-450 [facility] Comment on above: Performed By: #### L 501.5200, L500.4050, L100.0100 ####[facility] [address] [place], [address] RBC (Bld) [#/Vol] 4.72 10*6/uL Normal 4.6-6.2 [facility] Comment on above: Performed By: #### L 501.5200, L500.4050, L100.0100 ####[facility] [address] [place], [address] RDW SD 44.7 fl High 35.1-43.9 [facility] Comment on above: Performed By: #### L 501.5200, L500.4050, L100.0100 ####[facility] [address] [place], [address] WBC (Bld) [#/Vol] 4.0 10*3/uL Low 4.4-11.0 [facility] Comment on above: Performed By: #### L 501.5200, L500.4050, L100.0100 ####[facility] [address] [place], [address] Comprehensive Metabolic Prof meon 07-01-2024 BUN/CRE 18.9 RATIO Normal 10-20 [facility] Comment on above: Performed By: #### L 501.5200, L500.4050, L100.0100 ####[facility] [address] [place], [address] Urea nitrogen [Mass/Vol] 17 mg/dL Normal 4-19 [facility] Comment on above: Performed By: #### L 501.5200, L500.4050, L100.0100 ####[facility] [address] [place], [address] Magnesiumon 07-01-2024 Magnesium [Mass/Vol] 2.3 mg/dL High 1.5-2.2 [facility] Comment on above: Performed By: #### L 501.5200, L500.4050, L100.0100 ####[facility] [address] [place], [address] Oncology Visit Reporton 06-15 Oncology Visit Report Normal [facility] Radiation Oncology Visiton 0 - Radiation Oncology Visit Normal [facility] CBC W/Diff, Automatedon 06-15-2024 Absolute Lymph 1.02 X10 3/uL Normal 0.83-4.51 [facility] Comment on above: Performed By: #### L 100.0100, L500.4050, L501.5200 ####[facility] [address] [place], [address] Absolute Neut 3.1 X10 3/uL Normal 2.0-7.7 [facility] Comment on above: Performed By: #### L 100.0100, L500.4050, L501.5200 ####[facility] [address] [place], [address] Basophils/100 WBC (Bld) 0.6 % Normal 0-1 [facility] Comment on above: Performed By: #### L 100.0100, L500.4050, L501.5200 ####[facility] [address] [place], [address] Eosinophils/100 WBC (Bld) 2.3 % Normal 0-5 [facility] Comment on above: Performed By: #### L 100.0100, L500.4050, L501.5200 ####[facility] [address] [place], [address] Erythrocyte distribution width (RBC) [Ratio] 15.7 % High 11.6-14.6 [facility] Comment on above: Performed By: #### L 100.0100, L500.4050, L501.5200 ####[facility] [address] [place], [address] Hematocrit (Bld) [Volume fraction] 41.3 % Normal 40-54 [facility] Comment on above: Performed By: #### L 100.0100, L500.4050, L501.5200 ####[facility] [address] [place], [address] Hemoglobin (Bld) [Mass/Vol] 13.8 g/dL Normal 13.0-16.5 [facility] Comment on above: Performed By: #### L 100.0100, L500.4050, L501.5200 ####[facility] [address] [place], [address] IG% 0.200 Normal 0.0-0.9 [facility] Comment on above: Result Comment: IG% - Immature Granulocytes (promyelocytes, myelocytes andmetamyelocytes) > 1% indicates that a LEFT SHIFT is Present. Performed By: #### L 100.0100, L500.4050, L501.5200 ####[facility] [address] [place], [address] Lymphocytes/100 WBC (Bld) 21.6 % Normal 19-41 [facility] Comment on above: Performed By: #### L 100.0100, L500.4050, L501.5200 ####[facility] [address] [place], [address] MCH (RBC) [Entitic mass] 27.1 pg Normal 27.0-32.0 [facility] Comment on above: Performed By: #### L 100.0100, L500.4050, L501.5200 ####[facility] [address] [place], [address] MCHC (RBC) [Mass/Vol] 33.4 g/dL Normal 32-36 [facility] Comment on above: Performed By: #### L 100.0100, L500.4050, L501.5200 ####[facility] [address] [place], [address] MCV (RBC) [Entitic vol] 81.0 fL Normal 80-94 [facility] Comment on above: Performed By: #### L 100.0100, L500.4050, L501.5200 ####[facility] [address] [place], [address] Monocytes/100 WBC (Bld) 9.3 % Normal 0-10 [facility] Comment on above: Performed By: #### L 100.0100, L500.4050, L501.5200 ####[facility] [address] [place], [address] Neutrophils/100 WBC (Bld) 66.0 % Normal 47-70 [facility] Comment on above: Performed By: #### L 100.0100, L500.4050, L501.5200 ####[facility] [address] [place], [address] Nucleated RBC (Bld) [#/Vol] 0 10*3/uL Normal 0-5 [facility] Comment on above: Performed By: #### L 100.0100, L500.4050, L501.5200 ####[facility] [address] [place], [address] Platelet mean volume (Bld) [Entitic vol] 9.4 fL Normal 6.2-12.0 [facility] Comment on above: Performed By: #### L 100.0100, L500.4050, L501.5200 ####[facility] [address] [place], [address] Platelets (Bld) [#/Vol] 190 10*3/uL Normal 150-450 [facility] Comment on above: Performed By: #### L 100.0100, L500.4050, L501.5200 ####[facility] [address] [place], [address] RBC (Bld) [#/Vol] 5.10 10*6/uL Normal 4.6-6.2 [facility] Comment on above: Performed By: #### L 100.0100, L500.4050, L501.5200 ####[facility] [address] [place], [address] RDW SD 46.0 fl High 35.1-43.9 [facility] Comment on above: Performed By: #### L 100.0100, L500.4050, L501.5200 ####[facility] [address] [place], [address] WBC (Bld) [#/Vol] 4.7 10*3/uL Normal 4.4-11.0 [facility] Comment on above: Performed By: #### L 100.0100, L500.4050, L501.5200 ####[facility] [address] [place], [address] Absolute Neut Normal 2.0-7.7 [facility] Comment on above: Result Comment: DUPL ICATED TX PLAN ALREADY IN Performed By: #### L 100.0100, L500.4050 ####[facility] [address] [place], [address] HCT Normal 40-54 [facility] Comment on above: Result Comment: DUPL ICATED TX PLAN ALREADY IN Performed By: #### L 100.0100, L500.4050 ####[facility] [address] [place], [address] HGB Normal 13.0-16.5 [facility] Comment on above: Result Comment: DUPL ICATED TX PLAN ALREADY IN Performed By: #### L 100.0100, L500.4050 ####[facility] [address] [place], [address] MCH Normal 27.0-32.0 [facility] Comment on above: Result Comment: DUPL ICATED TX PLAN ALREADY IN Performed By: #### L 100.0100, L500.4050 ####[facility] [address] [place], [address] MCHC Normal 32-36 [facility] Comment on above: Result Comment: DUPL ICATED TX PLAN ALREADY IN Performed By: #### L 100.0100, L500.4050 ####[facility] [address] [place], [address] MCV Normal 80-94 [facility] Comment on above: Result Comment: DUPL ICATED TX PLAN ALREADY IN Performed By: #### L 100.0100, L500.4050 ####[facility] [address] [place], [address] NEUT% Normal 47-70 [facility] Comment on above: Result Comment: DUPL ICATED TX PLAN ALREADY IN Performed By: #### L 100.0100, L500.4050 ####[facility] [address] [place], [address] PLT Normal 150-450 [facility] Comment on above: Result Comment: DUPL ICATED TX PLAN ALREADY IN Performed By: #### L 100.0100, L500.4050 ####[facility] [address] [place], [address] RBC Normal 4.6-6.2 [facility] Comment on above: Result Comment: DUPL ICATED TX PLAN ALREADY IN Performed By: #### L 100.0100, L500.4050 ####[facility] [address] [place], [address] RDW CV Normal 11.6-14.6 [facility] Comment on above: Result Comment: DUPL ICATED TX PLAN ALREADY IN Performed By: #### L 100.0100, L500.4050 ####[facility] [address] [place], [address] RDW SD Normal 35.1-43.9 [facility] Comment on above: Result Comment: DUPL ICATED TX PLAN ALREADY IN Performed By: #### L 100.0100, L500.4050 ####[facility] [address] [place], [address] WBC Normal 4.4-11.0 [facility] Comment on above: Result Comment: DUPL ICATED TX PLAN ALREADY IN Performed By: #### L 100.0100, L500.4050 ####[facility] [address] [place], [address] Comprehensive Metabolic Prof ilon 06-24-2024 Albumin [Mass/Vol] 3.9 g/dL Normal 3.4-4.8 [facility] Comment on above: Performed By: #### L 100.0100, L500.4050, L501.5200 ####[facility] [address] [place], [address] Albumin/Globulin [Mass ratio] 1.4 {ratio} Normal 0.9-2.4 [facility] Comment on above: Performed By: #### L 100.0100, L500.4050, L501.5200 ####[facility] [address] [place], [address] ALK PHOS 94 U/L Normal 40-129 [facility] Comment on above: Performed By: #### L 100.0100, L500.4050, L501.5200 ####[facility] [address] [place], [address] ALT [Catalytic activity/Vol] 23 U/L Normal <=46 [facility] Comment on above: Performed By: #### L 100.0100, L500.4050, L501.5200 ####[facility] [address] [place], [address] AST [Catalytic activity/Vol] 27 U/L Normal <=37 [facility] Comment on above: Performed By: #### L 100.0100, L500.4050, L501.5200 ####[facility] [address] [place], [address] Bilirubin [Mass/Vol] 0.39 mg/dL Normal 0.00-1.30 [facility] Comment on above: Performed By: #### L 100.0100, L500.4050, L501.5200 ####[facility] [address] [place], [address] BUN/CRE 16.6 RATIO Normal 10-20 [facility] Comment on above: Performed By: #### L 100.0100, L500.4050, L501.5200 ####[facility] [address] [place], [address] Calcium [Mass/Vol] 9.8 mg/dL Normal 7.6-11.0 [facility] Comment on above: Performed By: #### L 100.0100, L500.4050, L501.5200 ####[facility] [address] [place], [address] Chloride [Moles/Vol] 106 mmol/L Normal 98-108 [facility] Comment on above: Performed By: #### L 100.0100, L500.4050, L501.5200 ####[facility] [address] [place], [address] CO2 [Moles/Vol] 22.1 mmol/L Normal 21.0-32.0 [facility] Comment on above: Performed By: #### L 100.0100, L500.4050, L501.5200 ####[facility] [address] [place], [address] Creatinine [Mass/Vol] 0.97 mg/dL Normal 0.70-1.20 [facility] Comment on above: Performed By: #### L 100.0100, L500.4050, L501.5200 ####[facility] [address] [place], [address] ECRCL 62.52 ml/min Normal 50-250 [facility] Comment on above: Performed By: #### L 100.0100, L500.4050, L501.5200 ####[facility] [address] [place], [address] GAP 12 Normal 5-15 [facility] Comment on above: Performed By: #### L 100.0100, L500.4050, L501.5200 ####[facility] [address] [place], [address] GFR/1.73 sq M.predicted among non-blacks MDRD (S/P/Bld) [Vol rate/Area] 85 mL/min/{1.73_m2} Normal >60 [facility] Comment on above: Result Comment: mL/m in/1.73m2 CKD-EPI Creatinine Equation (2020) Performed By: #### L 100.0100, L500.4050, L501.5200 ####[facility] [address] [place], [address] Globulin (S) [Mass/Vol] 2.7 g/dL Normal 2.2-4.2 [facility] Comment on above: Performed By: #### L 100.0100, L500.4050, L501.5200 ####[facility] [address] [place], [address] Glucose [Mass/Vol] 135 mg/dL High 70-99 [facility] Comment on above: Performed By: #### L 100.0100, L500.4050, L501.5200 ####[facility] [address] [place], [address] Potassium [Moles/Vol] 4.1 mmol/L Normal 3.3-5.1 [facility] Comment on above: Performed By: #### L 100.0100, L500.4050, L501.5200 ####[facility] [address] [place], [address] Sodium [Moles/Vol] 140 mmol/L Normal 133-145 [facility] Comment on above: Performed By: #### L 100.0100, L500.4050, L501.5200 ####[facility] [address] [place], [address] T PROT 6.6 g/dL Normal 5.9-8.4 [facility] Comment on above: Performed By: #### L 100.0100, L500.4050, L501.5200 ####[facility] [address] [place], [address] Urea nitrogen [Mass/Vol] 16 mg/dL Normal 4-19 [facility] Comment on above: Performed By: #### L 100.0100, L500.4050, L501.5200 ####[facility] [address] [place], [address] ALB Normal 3.4-4.8 [facility] Comment on above: Result Comment: DUPL ICATED TX PLAN ALREADY IN Performed By: #### L 100.0100, L500.4050 ####[facility] [address] [place], [address] ALK PHOS Normal 40-129 [facility] Comment on above: Result Comment: DUPL ICATED TX PLAN ALREADY IN Performed By: #### L 100.0100, L500.4050 ####[facility] [address] [place], [address] ALT Normal <=46 [facility] Comment on above: Result Comment: DUPL ICATED TX PLAN ALREADY IN Performed By: #### L 100.0100, L500.4050 ####[facility] [address] [place], [address] AST Normal <=37 [facility] Comment on above: Result Comment: DUPL ICATED TX PLAN ALREADY IN Performed By: #### L 100.0100, L500.4050 ####[facility] [address] [place], [address] BUN Normal 4-19 [facility] Comment on above: Result Comment: DUPL ICATED TX PLAN ALREADY IN Performed By: #### L 100.0100, L500.4050 ####[facility] [address] [place], [address] BUN/CRE Normal 10-20 [facility] Comment on above: Result Comment: DUPL ICATED TX PLAN ALREADY IN Performed By: #### L 100.0100, L500.4050 ####[facility] [address] [place], [address] Calcium Normal 7.6-11.0 [facility] Comment on above: Result Comment: DUPL ICATED TX PLAN ALREADY IN Performed By: #### L 100.0100, L500.4050 ####[facility] [address] [place], [address] CL Normal 98-108 [facility] Comment on above: Result Comment: DUPL ICATED TX PLAN ALREADY IN Performed By: #### L 100.0100, L500.4050 ####[facility] [address] [place], [address] CO2 Normal 21.0-32.0 [facility] Comment on above: Result Comment: DUPL ICATED TX PLAN ALREADY IN Performed By: #### L 100.0100, L500.4050 ####[facility] [address] [place], [address] CREAT,SERUM Normal 0.70-1.20 [facility] Comment on above: Result Comment: DUPL ICATED TX PLAN ALREADY IN Performed By: #### L 100.0100, L500.4050 ####[facility] [address] [place], [address] eGFR Normal >60 [facility] Comment on above: Result Comment: DUPL ICATED TX PLAN ALREADY IN Performed By: #### L 100.0100, L500.4050 ####[facility] [address] [place], [address] GAP Normal 5-15 [facility] Comment on above: Result Comment: DUPL ICATED TX PLAN ALREADY IN Performed By: #### L 100.0100, L500.4050 ####[facility] [address] [place], [address] GLU Normal 70-99 [facility] Comment on above: Result Comment: DUPL ICATED TX PLAN ALREADY IN Performed By: #### L 100.0100, L500.4050 ####[facility] [address] [place], [address] Potassium Normal 3.3-5.1 [facility] Comment on above: Result Comment: DUPL ICATED TX PLAN ALREADY IN Performed By: #### L 100.0100, L500.4050 ####[facility] [address] [place], [address] T BILI Normal 0.00-1.30 [facility] Comment on above: Result Comment: DUPL ICATED TX PLAN ALREADY IN Performed By: #### L 100.0100, L500.4050 ####[facility] [address] [place], [address] T PROT Normal 5.9-8.4 [facility] Comment on above: Result Comment: DUPL ICATED TX PLAN ALREADY IN Performed By: #### L 100.0100, L500.4050 ####[facility] [address] [place], [address] Comprehensive Metabolic Profil Normal 133-145 [facility] Comment on above: Result Comment: DUPL ICATED TX PLAN ALREADY IN Performed By: #### L 100.0100, L500.4050 ####[facility] [address] [place], [address] Cytology report Cyto stain D oc (Body fld)Ordered By: Donny Martinez on 06-24-2024 Miscellaneous Cytology SEE PATHOLOGY REPORT [facility] Comment on above: Specimen submitted t o Anatomical Pathology Department for testing. Cytology, Body Fluid / CSFon 06-24-2024 CYTOLOGY,BF/CSF SEE PATHOLOGY REPORT Normal [facility] Comment on above: Order Comment: URINE IS BEING SENT TO LABReason for Exam: URINEComments: URINEURINE Result Comment: Spec imen submitted to Anatomical Pathology Department fortesting. Performed By: #### L 350.1000 ####[facility] [address] [place], [address] Magnesiumon 06-24-2024 Magnesium [Mass/Vol] 2.3 mg/dL High 1.5-2.2 [facility] Comment on above: Performed By: #### L 100.0100, L500.4050, L501.5200 ####[facility] [address] [place], [address] Oncology Visit Reporton 06-15 Oncology Visit Report Normal [facility] Pap Stain (control)on 2024 Pap Stain (control) Normal [facility] Comment on above: Performed By: #### P PAPS ####[facility] [address] [place], [address] CBC W/Diff, Automatedon Absolute Neut Normal 2.0-7.7 [facility] Comment on above: Result Comment: Canc elled via OM: Physician Authorized Performed By: #### L 100.0100, L500.4050 ####[facility] [address] [place], [address] HCT Normal 40-54 [facility] Comment on above: Result Comment: Canc elled via OM: Physician Authorized Performed By: #### L 100.0100, L500.4050 ####[facility] [address] [place], [address] HGB Normal 13.0-16.5 [facility] Comment on above: Result Comment: Canc elled via OM: Physician Authorized Performed By: #### L 100.0100, L500.4050 ####[facility] [address] [place], [address] MCH Normal 27.0-32.0 [facility] Comment on above: Result Comment: Canc elled via OM: Physician Authorized Performed By: #### L 100.0100, L500.4050 ####[facility] [address] [place], [address] MCHC Normal 32-36 [facility] Comment on above: Result Comment: Canc elled via OM: Physician Authorized Performed By: #### L 100.0100, L500.4050 ####[facility] [address] [place], [address] MCV Normal 80-94 [facility] Comment on above: Result Comment: Canc elled via OM: Physician Authorized Performed By: #### L 100.0100, L500.4050 ####[facility] [address] [place], [address] NEUT% Normal 47-70 [facility] Comment on above: Result Comment: Canc elled via OM: Physician Authorized Performed By: #### L 100.0100, L500.4050 ####[facility] [address] [place], [address] PLT Normal 150-450 [facility] Comment on above: Result Comment: Canc elled via OM: Physician Authorized Performed By: #### L 100.0100, L500.4050 ####[facility] [address] [place], [address] RBC Normal 4.6-6.2 [facility] Comment on above: Result Comment: Canc elled via OM: Physician Authorized Performed By: #### L 100.0100, L500.4050 ####[facility] [address] [place], [address] RDW CV Normal 11.6-14.6 [facility] Comment on above: Result Comment: Canc elled via OM: Physician Authorized Performed By: #### L 100.0100, L500.4050 ####[facility] [address] [place], [address] RDW SD Normal 35.1-43.9 [facility] Comment on above: Result Comment: Canc elled via OM: Physician Authorized Performed By: #### L 100.0100, L500.4050 ####[facility] [address] [place], [address] WBC Normal 4.4-11.0 [facility] Comment on above: Result Comment: Canc elled via OM: Physician Authorized Performed By: #### L 100.0100, L500.4050 ####[facility] [address] [place], [address] Comprehensive Metabolic Prof ilon 06-19-2024 ALB Normal 3.4-4.8 [facility] Comment on above: Result Comment: Canc elled via OM: Physician Authorized Performed By: #### L 100.0100, L500.4050 ####[facility] [address] [place], [address] ALK PHOS Normal 40-129 [facility] Comment on above: Result Comment: Canc elled via OM: Physician Authorized Performed By: #### L 100.0100, L500.4050 ####[facility] [address] [place], [address] ALT Normal <=46 [facility] Comment on above: Result Comment: Canc elled via OM: Physician Authorized Performed By: #### L 100.0100, L500.4050 ####[facility] [address] [place], [address] AST Normal <=37 [facility] Comment on above: Result Comment: Canc elled via OM: Physician Authorized Performed By: #### L 100.0100, L500.4050 ####[facility] [address] [place], [address] BUN Normal 4-19 [facility] Comment on above: Result Comment: Canc elled via OM: Physician Authorized Performed By: #### L 100.0100, L500.4050 ####[facility] [address] [place], [address] BUN/CRE Normal 10-20 [facility] Comment on above: Result Comment: Canc elled via OM: Physician Authorized Performed By: #### L 100.0100, L500.4050 ####[facility] [address] [place], [address] Calcium Normal 7.6-11.0 [facility] Comment on above: Result Comment: Canc elled via OM: Physician Authorized Performed By: #### L 100.0100, L500.4050 ####[facility] [address] [place], [address] CL Normal 98-108 [facility] Comment on above: Result Comment: Canc elled via OM: Physician Authorized Performed By: #### L 100.0100, L500.4050 ####[facility] [address] [place], [address] CO2 Normal 21.0-32.0 [facility] Comment on above: Result Comment: Canc elled via OM: Physician Authorized Performed By: #### L 100.0100, L500.4050 ####[facility] [address] [place], [address] CREAT,SERUM Normal 0.70-1.20 [facility] Comment on above: Result Comment: Canc elled via OM: Physician Authorized Performed By: #### L 100.0100, L500.4050 ####[facility] [address] [place], [address] eGFR Normal >60 [facility] Comment on above: Result Comment: Canc elled via OM: Physician Authorized Performed By: #### L 100.0100, L500.4050 ####[facility] [address] [place], [address] GAP Normal 5-15 [facility] Comment on above: Result Comment: Canc elled via OM: Physician Authorized Performed By: #### L 100.0100, L500.4050 ####[facility] [address] [place], [address] GLU Normal 70-99 [facility] Comment on above: Result Comment: Canc elled via OM: Physician Authorized Performed By: #### L 100.0100, L500.4050 ####[facility] [address] [place], [address] Potassium Normal 3.3-5.1 [facility] Comment on above: Result Comment: Canc elled via OM: Physician Authorized Performed By: #### L 100.0100, L500.4050 ####[facility] [address] [place], [address] T BILI Normal 0.00-1.30 [facility] Comment on above: Result Comment: Canc elled via OM: Physician Authorized Performed By: #### L 100.0100, L500.4050 ####[facility] [address] [place], [address] T PROT Normal 5.9-8.4 [facility] Comment on above: Result Comment: Canc elled via OM: Physician Authorized Performed By: #### L 100.0100, L500.4050 ####[facility] [address] [place], [address] Comprehensive Metabolic Profil Normal 133-145 [facility] Comment on above: Result Comment: Canc elled via OM: Physician Authorized Performed By: #### L 100.0100, L500.4050 ####[facility] [address] [place], [address] Oncology Visit Reporton 0 Oncology Visit Report Normal [facility] CREATININE FINGERSTICKon CREATININE WB < 1.0 Normal 0.70-1.30 [facility] Comment on above: Performed By: #### L 9100.0200 ####[facility] [address] [place], [place], [address] EGFR WB > 60.0000 Normal >60 [facility] Comment on above: Performed By: #### L 9100.0200 ####[facility] [address] [place], [address] Creatinine measurement at dsideOrdered By: Donny Martinez on 06-17-2024 Bedside Creatinine < 1.0 mg/dL 0.70-1.30 [facility] EGFROrdered By: Donny Martinez on 06-17-2024 Bedside Estimated GFR (eGFR) > 60.0000 mL/min >60 [facility] GFR/1.73 sq M.predicted among non-blacks MDRD (S/P/Bld) [Vol rate/Area] mL/min/{1.73_m2} >60 [facility] CXR for Line Placementon CXR for Line Placement Normal [facility] Discharge Instructionon 05-19 Discharge Instruction Normal [facility] MR/POSTOP.ANEon 06-14-2024 MR/POSTOP.ANE [facility] MR/[id number] 06-14-2024 MR/POSTOPAN2 [facility] Operative Reporton Operative Report [facility] CNOVon 06-12-2024 CNOV Office Visit (EARLINE) ---- BETHANY ROJAS ([id number]) 1955 M Date Time Provider Department 06/12/24 ALVARO MENDIETA During your visit today, we recorded the following information about you: Alvaro Mendieta, Research Coordinator 06/12/2024 8:33 AM Signed Patient was approached about his interest in IRB [id number], patient declined. 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 Problem List As Of Date: 06/12/2024 (None) Encounter Status:Closed by ALVARO MENDIETA on 06/12/24 [facility] CNOVon 06-11-2024 CNOV Office Visit (UROLMN) ---- BETHANY ROJAS ([id number]) 1955 [facility] Date Time Provider Department 06/11/24 11:00 AM [...] PET scan highlighted areas, but biopsy by senior digital designer showed no cancer. - Conflicting opinions from oncologists regarding lung findings. - Recent blood test ([facility]) showed positive for cancer DNA; oncologist dismissed the test as worthless. 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 - Denies smoking history. 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 - Describes himself as very active, with [...] higher, cl (more content not included)... Normal [facility] Surgery Visit Reporton 06-10 Surgery Visit Report Normal [facility] Radiation Oncology Visiton 0 05-24-2024 Radiation Oncology Visit Normal [facility] Oncology Visit Reporton Oncology Visit Report Normal [facility] Bronchoscopy Reporton 2024 Bronchoscopy Report Normal [facility] MR/POSTOP.ANEon 05-10-2024 MR/POSTOP.ANE [facility] MR/[id number] 05-10-2024 MR/POSTOPAN2 [facility] Special Stain Group IIon Special Stain Group II [facility] Comment on above: Performed By: #### P SSII ####[facility] [address] [place], [place], [id number] MR/PAT.ANEon 05-07-2024 MR/PAT.ANE [facility] International normalized rat io (INR) calculationOrdered By: Young Samuels on 04-30-2024 INR Coag (Bld) [Relative time] 0.9 {INR} [facility] PLATELET COUNTon 04-30-2024 Platelets (Bld) [#/Vol] 226 10*3/uL Normal 150-450 [facility] Comment on above: Performed By: #### L 300.3900, L100.0625 ####[facility] [address] [place], [address] Platelet countOrdered By: Gómez on 04-30-2024 Platelets (Bld) [#/Vol] 226 10*3/uL 150-450 [facility] Prothrombin Time w/INRon INR Coag (PPP) [Relative time] 0.9 {INR} Normal [facility] Comment on above: Performed By: #### L 300.3900, L100.0625 ####[facility] [address] [place], [address] PT Coag (PPP) [Time] 12.6 s Normal 11.7-14.9 [facility] Comment on above: Performed By: #### L 300.3900, L100.0625 ####[facility] [address] [place], [address] Prothrombin timeOrdered By: Young Samuels on 04-30-2024 PT Coag (PPP) [Time] 12.6 s 11.7-14.9 [facility] Pulmonary Visit Reporton Pulmonary Visit Report Normal [facility] Oncology Visit Reporton Oncology Visit Report Normal [facility] PET/CT Tumor Base -Thigh Ini ton 04-23-2024 PET/CT Tumor Base -Thigh Init Normal [facility] Oncology Visit Reporton 03-19 Oncology Visit Report Normal [facility] CT Chest, Abd, Pel w/Contras ton 04-11-2024 CT Chest, Abd, Pel w/Contrast Normal [facility] CBC W/Diff, Automatedon 03-17 Absolute Lymph 1.10 X10 3/uL Normal 0.83-4.51 [facility] Comment on above: Performed By: #### L 100.0100, L504.2610, L500.4050 ####[facility] [address] [place], [address] Absolute Neut 3.7 X10 3/uL Normal 2.0-7.7 [facility] Comment on above: Performed By: #### L 100.0100, L504.2610, L500.4050 ####[facility] [address] [place], [address] Basophils/100 WBC (Bld) 0.7 % Normal 0-1 [facility] Comment on above: Performed By: #### L 100.0100, L504.2610, L500.4050 ####[facility] [address] [place], [address] Eosinophils/100 WBC (Bld) 0.9 % Normal 0-5 [facility] Comment on above: Performed By: #### L 100.0100, L504.2610, L500.4050 ####[facility] [address] [place], [address] Erythrocyte distribution width (RBC) [Ratio] 13.4 % Normal 11.6-14.6 [facility] Comment on above: Performed By: #### L 100.0100, L504.2610, L500.4050 ####[facility] [address] [place], [address] Hematocrit (Bld) [Volume fraction] 37.5 % Low 40-54 [facility] Comment on above: Performed By: #### L 100.0100, L504.2610, L500.4050 ####[facility] [address] [place], [address] Hemoglobin (Bld) [Mass/Vol] 12.5 g/dL Low 13.0-16.5 [facility] Comment on above: Performed By: #### L 100.0100, L504.2610, L500.4050 ####[facility] [address] [place], [address] IG% 0.200 Normal 0.0-0.9 [facility] Comment on above: Result Comment: IG% - Immature Granulocytes (promyelocytes, myelocytes andmetamyelocytes) > 1% indicates that a LEFT SHIFT is Present. Performed By: #### L 100.0100, L504.2610, L500.4050 ####[facility] [address] [place], [address] Lymphocytes/100 WBC (Bld) 20.1 % Normal 19-41 [facility] Comment on above: Performed By: #### L 100.0100, L504.2610, L500.4050 ####[facility] [address] [place], [address] MCH (RBC) [Entitic mass] 28.1 pg Normal 27.0-32.0 [facility] Comment on above: Performed By: #### L 100.0100, L504.2610, L500.4050 ####[facility] [address] [place], [address] MCHC (RBC) [Mass/Vol] 33.3 g/dL Normal 32-36 [facility] Comment on above: Performed By: #### L 100.0100, L504.2610, L500.4050 ####[facility] [address] [place], [address] MCV (RBC) [Entitic vol] 84.3 fL Normal 80-94 [facility] Comment on above: Performed By: #### L 100.0100, L504.2610, L500.4050 ####[facility] [address] [place], [address] Monocytes/100 WBC (Bld) 9.9 % Normal 0-10 [facility] Comment on above: Performed By: #### L 100.0100, L504.2610, L500.4050 ####[facility] [address] [place], [address] Neutrophils/100 WBC (Bld) 68.2 % Normal 47-70 [facility] Comment on above: Performed By: #### L 100.0100, L504.2610, L500.4050 ####[facility] [address] [place], [address] Nucleated RBC (Bld) [#/Vol] 0 10*3/uL Normal 0-5 [facility] Comment on above: Performed By: #### L 100.0100, L504.2610, L500.4050 ####[facility] [address] [place], [address] Platelet mean volume (Bld) [Entitic vol] 9.3 fL Normal 6.2-12.0 [facility] Comment on above: Performed By: #### L 100.0100, L504.2610, L500.4050 ####[facility] [address] [place], [address] Platelets (Bld) [#/Vol] 275 10*3/uL Normal 150-450 [facility] Comment on above: Performed By: #### L 100.0100, L504.2610, L500.4050 ####[facility] [address] [place], [address] RBC (Bld) [#/Vol] 4.45 10*6/uL Low 4.6-6.2 [facility] Comment on above: Performed By: #### L 100.0100, L504.2610, L500.4050 ####[facility] [address] [place], [address] RDW SD 41.1 fl Normal 35.1-43.9 [facility] Comment on above: Performed By: #### L 100.0100, L504.2610, L500.4050 ####[facility] [address] [place], [address] WBC (Bld) [#/Vol] 5.5 10*3/uL Normal 4.4-11.0 [facility] Comment on above: Performed By: #### L 100.0100, L504.2610, L500.4050 ####[facility] [address] [place], [address] Comprehensive Metabolic Prof ilon 04-04-2024 Albumin [Mass/Vol] 4.2 g/dL Normal 3.2-5.0 [facility] Comment on above: Order Comment: 1 Performed By: #### L 100.0100, L504.2610, L500.4050 ####[facility] [address] [place], [address] Albumin/Globulin [Mass ratio] 1.3 {ratio} Normal 0.9-2.4 [facility] Comment on above: Order Comment: 1 Performed By: #### L 100.0100, L504.2610, L500.4050 ####[facility] [address] [place], [address] ALK P 104 U/L Normal 45-117 [facility] Comment on above: Order Comment: 1 Performed By: #### L 100.0100, L504.2610, L500.4050 ####[facility] [address] [place], [address] ALT [Catalytic activity/Vol] 40 U/L Normal 16-61 [facility] Comment on above: Order Comment: 1 Performed By: #### L 100.0100, L504.2610, L500.4050 ####[facility] [address] [place], [address] AST [Catalytic activity/Vol] 23 U/L Normal 15-37 [facility] Comment on above: Order Comment: 1 Performed By: #### L 100.0100, L504.2610, L500.4050 ####[facility] [address], [address] Bilirubin [Mass/Vol] 0.40 mg/dL Normal 0.20-1.00 [facility] Comment on above: Order Comment: 1 Result Comment: For patients on eltrombopag therapy, use of Dimension Hernandez TBIL is not recommended. Performed By: #### L 100.0100, L504.2610, L500.4050 ####[facility] [address] [place], [address] BUN/CRE 14.1 RATIO Normal 10-20 [facility] Comment on above: Order Comment: 1 Performed By: #### L 100.0100, L504.2610, L500.4050 ####[facility] [address] [place], [address] CA,Total 9.8 mg/dL Normal 8.5-10.1 [facility] Comment on above: Order Comment: 1 Performed By: #### L 100.0100, L504.2610, L500.4050 ####[facility] [address], [address] Chloride [Moles/Vol] 109 mmol/L High 98-107 [facility] Comment on above: Order Comment: 1 Performed By: #### L 100.0100, L504.2610, L500.4050 ####[facility] [address] [place], [address] CO2 [Moles/Vol] 27.0 mmol/L Normal 21.0-32.0 [facility] Comment on above: Order Comment: 1 Performed By: #### L 100.0100, L504.2610, L500.4050 ####[facility] [address] [place], [address] Creatinine [Mass/Vol] 0.99 mg/dL Normal 0.70-1.30 [facility] Comment on above: Order Comment: 1 Result Comment: The validity of the calculated GFR GFRAA in patients over70 years has not been determined. Clinical correlation isessential. Performed By: #### L 100.0100, L504.2610, L500.4050 ####[facility] [address] [place], [address] EST GFR - AA 96 mL/min Normal >60 [facility] Comment on above: Order Comment: 1 Result Comment: Afri can Belgian GFR Calc Performed By: #### L 100.0100, L504.2610, L500.4050 ####[facility] [address] [place], [address] GAP 5 Normal 5-15 [facility] Comment on above: Order Comment: 1 Performed By: #### L 100.0100, L504.2610, L500.4050 ####[facility] [address] [place], [address] GFR/1.73 sq M.predicted among non-blacks MDRD (S/P/Bld) [Vol rate/Area] 80 mL/min/{1.73_m2} Normal >60 [facility] Comment on above: Order Comment: 1 Result Comment: Non- GFR Calc Performed By: #### L 100.0100, L504.2610, L500.4050 ####[facility] [address] [place], [address] Globulin (S) [Mass/Vol] 3.2 g/dL Normal 2.2-4.2 [facility] Comment on above: Order Comment: 1 Performed By: #### L 100.0100, L504.2610, L500.4050 ####[facility] [address] [place], [address] Glucose [Mass/Vol] 85 mg/dL Normal 74-106 [facility] Comment on above: Order Comment: 1 Performed By: #### L 100.0100, L504.2610, L500.4050 ####[facility] [address] [place], [address] Potassium [Moles/Vol] 3.6 mmol/L Normal 3.5-5.1 [facility] Comment on above: Order Comment: 1 Performed By: #### L 100.0100, L504.2610, L500.4050 ####[facility] [address] [place], [address] Sodium [Moles/Vol] 141 mmol/L Normal 136-145 [facility] Comment on above: Order Comment: 1 Performed By: #### L 100.0100, L504.2610, L500.4050 ####[facility] [address] [place], [address] T PROT 7.4 g/dL Normal 6.4-8.2 [facility] Comment on above: Order Comment: 1 Performed By: #### L 100.0100, L504.2610, L500.4050 ####[facility] [address] [place], [address] Urea nitrogen [Mass/Vol] 14 mg/dL Normal 7-18 [facility] Comment on above: Order Comment: 1 Performed By: #### L 100.0100, L504.2610, L500.4050 ####[facility] [address] [place], [address] Estimated glomerular filtrat ion rate (GFR) AmericanOrdered By: Donny Martinez on 04-04-2024 Estimated GFR (MDRD) Amer 96 mL/min >60 [facility] Comment on above: GFR Calc LDHon 04-04-2024 LDH 230 U/L Normal 87-241 [facility] Comment on above: Order Comment: 1 Performed By: #### L 100.0100, L504.2610, L500.4050 ####[facility] [address] [place], [address] Lactate dehydrogenase (LDH) measurementOrdered By: Donny Martinez on 04-04-2024 LDH [Catalytic activity/Vol] 230 U/L 87-241 [facility] Miscellaneous procedureOrder ed By: Donny Martinez on 04-04-2024 Miscellaneous Test Comment SEE SCANNED REPORT [facility] NATERAon 04-04-2024 NATURA SEE SCANNED REPORT Normal [facility] Comment on above: Performed By: #### L 900.0098 ####[facility] [address] [place], [place], [id number] Oncology Visit Reporton 03-17 Oncology Visit Report Normal [facility] Discharge Instructionon 02-16 Discharge Instruction Normal [facility] MR/POSTOP.ANEon 03-13-2024 MR/POSTOP.ANE Normal [facility] MR/VFEFZXEX0ru 03-13-2024 MR/POSTOPAN2 Normal [facility] Operative Reporton Operative Report Normal [facility] Surgery Specimen Level Von 1 05-13-2023 Surgery Specimen Level V Normal [facility] Comment on above: Performed By: #### P SUV ####[facility] [address] [place], [address] Basic Metabolic Profile (BMP )on 02-01-2024 BUN/CRE 26.3 RATIO High 10- [facility] Comment on above: Performed By: #### L 500.2500, L100.0500 ####[facility] [address] [place], [address] CA,Total 8.5 mg/dL Normal 8.5-10.1 [facility] Comment on above: Performed By: #### L 500.2500, L100.0500 ####[facility] [address] [place], [address] Chloride [Moles/Vol] 111 mmol/L High 98-107 [facility] Comment on above: Performed By: #### L 500.2500, L100.0500 ####[facility] [address] [place], [address] CO2 [Moles/Vol] 23.0 mmol/L Normal 21.0-32.0 [facility] Comment on above: Performed By: #### L 500.2500, L100.0500 ####[facility] [address] [place], [address] Creatinine [Mass/Vol] 0.95 mg/dL Normal 0.70-1.30 [facility] Comment on above: Result Comment: The validity of the calculated GFR GFRAA in patients over70 years has not been determined. Clinical correlation isessential. Performed By: #### L 500.2500, L100.0500 ####[facility] [address] [place], [address] ECRCL 64.74 ml/min Normal [facility] Comment on above: Performed By: #### L 500.2500, L100.0500 ####[facility] [address] [place], [address] EST GFR - AA 101 mL/min Normal >60 [facility] Comment on above: Result Comment: Afri can Belgian GFR Calc Performed By: #### L 500.2500, L100.0500 ####[facility] [address] [place], [address] GAP 6 Normal 5-15 [facility] Comment on above: Performed By: #### L 500.2500, L100.0500 ####[facility] [address] [place], [address] GFR/1.73 sq M.predicted among non-blacks MDRD (S/P/Bld) [Vol rate/Area] 83 mL/min/{1.73_m2} Normal >60 [facility] Comment on above: Result Comment: Non- GFR Calc Performed By: #### L 500.2500, L100.0500 ####[facility] [address] [place], [address] Glucose [Mass/Vol] 122 mg/dL High 74-106 [facility] Comment on above: Result Comment: Fast ing Glucose result from 100 to 125 mg/dLsuggests IMPAIRED HOMEOSTASIS per A.D.A. criteria. Performed By: #### L 500.2500, L100.0500 ####[facility] [address] [place], [address] Potassium [Moles/Vol] 4.2 mmol/L Normal 3.5-5.1 [facility] Comment on above: Performed By: #### L 500.2500, L100.0500 ####[facility] [address] [place], [address] Sodium [Moles/Vol] 140 mmol/L Normal 136-145 [facility] Comment on above: Performed By: #### L 500.2500, L100.0500 ####[facility] [address] [place], [address] Urea nitrogen [Mass/Vol] 25 mg/dL High 7-18 [facility] Comment on above: Performed By: #### L 500.2500, L100.0500 ####[facility] [address] [place], [address] CBC-Complete Blood Cnt No Di ffon 02-01-2024 Erythrocyte distribution width (RBC) [Ratio] 13.1 % Normal 11.6-14.6 [facility] Comment on above: Performed By: #### L 500.2500, L100.0500 ####[facility] [address] [place], [address] Hematocrit (Bld) [Volume fraction] 31.7 % Low 40-54 [facility] Comment on above: Performed By: #### L 500.2500, L100.0500 ####[facility] [address] [place], [address] Hemoglobin (Bld) [Mass/Vol] 11.2 g/dL Low 13.0-16.5 [facility] Comment on above: Performed By: #### L 500.2500, L100.0500 ####[facility] [address] [place], [address] MCH (RBC) [Entitic mass] 31.5 pg Normal 27.0-32.0 [facility] Comment on above: Performed By: #### L 500.2500, L100.0500 ####[facility] [address] [place], [address] MCHC (RBC) [Mass/Vol] 35.3 g/dL Normal 32-36 [facility] Comment on above: Performed By: #### L 500.2500, L100.0500 ####[facility] [address] [place], [address] MCV (RBC) [Entitic vol] 89.3 fL Normal 80-94 [facility] Comment on above: Performed By: #### L 500.2500, L100.0500 ####[facility] [address] [place], [address] Platelet mean volume (Bld) [Entitic vol] 9.6 fL Normal 6.2-12.0 [facility] Comment on above: Performed By: #### L 500.2500, L100.0500 ####[facility] [address] [place], [address] Platelets (Bld) [#/Vol] 215 10*3/uL Normal 150-450 [facility] Comment on above: Performed By: #### L 500.2500, L100.0500 ####[facility] [address] [place], [address] RBC (Bld) [#/Vol] 3.55 10*6/uL Low 4.6-6.2 [facility] Comment on above: Performed By: #### L 500.2500, L100.0500 ####[facility] [address] [place], [address] RDW SD 43.1 fl Normal 35.1-43.9 [facility] Comment on above: Performed By: #### L 500.2500, L100.0500 ####[facility] [address] [place], [address] WBC (Bld) [#/Vol] 11.8 10*3/uL High 4.4-11.0 [facility] Comment on above: Performed By: #### L 500.2500, L100.0500 ####[facility] [address] [place], [address] MR/XUWJXIZK5xd 02-01-2024 MR/POSTOPAN2 Normal [facility] 12 Lead EKGon 01-31-2024 12 Lead EKG Normal [facility] Basic Metabolic Profile (BMP )on 01-31-2024 BUN/CRE 18.1 RATIO Normal 10-20 [facility] Comment on above: Order Comment: To be done in PACU Performed By: #### L 100.0500, L500.2500 ####[facility] [address] [place], [address] CA,Total 8.5 mg/dL Normal 8.5-10.1 [facility] Comment on above: Order Comment: To be done in PACU Performed By: #### L 100.0500, L500.2500 ####[facility] [address] [place], [address] Chloride [Moles/Vol] 111 mmol/L High 98-107 [facility] Comment on above: Order Comment: To be done in PACU Performed By: #### L 100.0500, L500.2500 ####[facility] [address] [place], [address] CO2 [Moles/Vol] 24.0 mmol/L Normal 21.0-32.0 [facility] Comment on above: Order Comment: To be done in PACU Performed By: #### L 100.0500, L500.2500 ####[facility] [address] [place], [address] Creatinine [Mass/Vol] 1.05 mg/dL Normal 0.70-1.30 [facility] Comment on above: Order Comment: To be done in PACU Result Comment: The validity of the calculated GFR GFRAA in patients over70 years has not been determined. Clinical correlation isessential. Performed By: #### L 100.0500, L500.2500 ####[facility] [address] [place], [address] ECRCL 58.57 ml/min Normal [facility] Comment on above: Order Comment: To be done in PACU Performed By: #### L 100.0500, L500.2500 ####[facility] [address] [place], [address] EST GFR - AA 90 mL/min Normal >60 [facility] Comment on above: Order Comment: To be done in PACU Result Comment: Afri can Belgian GFR Calc Performed By: #### L 100.0500, L500.2500 ####[facility] [address] [place], [address] GAP 6 Normal 5-15 [facility] Comment on above: Order Comment: To be done in PACU Performed By: #### L 100.0500, L500.2500 ####[facility] [address] [place], [address] GFR/1.73 sq M.predicted among non-blacks MDRD (S/P/Bld) [Vol rate/Area] 75 mL/min/{1.73_m2} Normal >60 [facility] Comment on above: Order Comment: To be done in PACU Result Comment: Non- GFR Calc Performed By: #### L 100.0500, L500.2500 ####[facility] [address] [place], [address] Glucose [Mass/Vol] 136 mg/dL High 74-106 [facility] Comment on above: Order Comment: To be done in PACU Result Comment: Fast ing Glucose result greater than or equal to 126 mg/dLsuggests DIABETES MELLITUS per A.D.A. criteria. Performed By: #### L 100.0500, L500.2500 ####[facility] [address] [place], [address] Potassium [Moles/Vol] 3.7 mmol/L Normal 3.5-5.1 [facility] Comment on above: Order Comment: To be done in PACU Performed By: #### L 100.0500, L500.2500 ####[facility] [address] [place], [address] Sodium [Moles/Vol] 141 mmol/L Normal 136-145 [facility] Comment on above: Order Comment: To be done in PACU Performed By: #### L 100.0500, L500.2500 ####[facility] [address] [place], [address] Urea nitrogen [Mass/Vol] 19 mg/dL High 7-18 [facility] Comment on above: Order Comment: To be done in PACU Performed By: #### L 100.0500, L500.2500 ####[facility] [address] [place], [address] CBC-Complete Blood Cnt No Di ffon 01-31-2024 Erythrocyte distribution width (RBC) [Ratio] 12.9 % Normal 11.6-14.6 [facility] Comment on above: Order Comment: Comme nts: To be done in PACU Performed By: #### L 100.0500, L500.2500 ####[facility] [address] [place], [address] Hematocrit (Bld) [Volume fraction] 36.0 % Low 40-54 [facility] Comment on above: Order Comment: Comme nts: To be done in PACU Performed By: #### L 100.0500, L500.2500 ####[facility] [address] [place], [address] Hemoglobin (Bld) [Mass/Vol] 12.6 g/dL Low 13.0-16.5 [facility] Comment on above: Order Comment: Comme nts: To be done in PACU Performed By: #### L 100.0500, L500.2500 ####[facility] [address] [place], [address] MCH (RBC) [Entitic mass] 31.5 pg Normal 27.0-32.0 [facility] Comment on above: Order Comment: Comme nts: To be done in PACU Performed By: #### L 100.0500, L500.2500 ####[facility] [address] [place], [address] MCHC (RBC) [Mass/Vol] 35.0 g/dL Normal 32-36 [facility] Comment on above: Order Comment: Comme nts: To be done in PACU Performed By: #### L 100.0500, L500.2500 ####[facility] [address] [place], [address] MCV (RBC) [Entitic vol] 90.0 fL Normal 80-94 [facility] Comment on above: Order Comment: Comme nts: To be done in PACU Performed By: #### L 100.0500, L500.2500 ####[facility] [address] [place], [address] Platelet mean volume (Bld) [Entitic vol] 9.5 fL Normal 6.2-12.0 [facility] Comment on above: Order Comment: Comme nts: To be done in PACU Performed By: #### L 100.0500, L500.2500 ####[facility] [address] [place], [address] Platelets (Bld) [#/Vol] 230 10*3/uL Normal 150-450 [facility] Comment on above: Order Comment: Comme nts: To be done in PACU Performed By: #### L 100.0500, L500.2500 ####[facility] [address] [place], [address] RBC (Bld) [#/Vol] 4.00 10*6/uL Low 4.6-6.2 [facility] Comment on above: Order Comment: Comme nts: To be done in PACU Performed By: #### L 100.0500, L500.2500 ####[facility] [address] [place], [address] RDW SD 42.5 fl Normal 35.1-43.9 [facility] Comment on above: Order Comment: Comme nts: To be done in PACU Performed By: #### L 100.0500, L500.2500 ####[facility] [address] [place], [address] WBC (Bld) [#/Vol] 8.6 10*3/uL Normal 4.4-11.0 [facility] Comment on above: Order Comment: Comme nts: To be done in PACU Performed By: #### L 100.0500, L500.2500 ####[facility] [address] [place], [address] Discharge Instructionon 01-15 Discharge Instruction Normal [facility] MR/POSTOP.ANEon 01-31-2024 MR/POSTOP.ANE Normal [facility] Operative Reporton Operative Report Normal [facility] Surgery Specimen Level Von 1 Surgery Specimen Level V Normal [facility] Comment on above: Performed By: #### P SUV ####[facility] [address] [place], [address] US RENALon 01-08-2024 US RENAL ORIGINAL EXAMINATION: LIMITED RETROPERITONEAL ULTRASOUND01/08/2024 7:28 am [...] 12:08:29 PM Ordering Provider: KYRIE LOZANO Normal [facility] .Auto Diffon 12-29-2023 Basophil, Absolute 0.1 10 3/mcL Normal 0.0-0.2 [facility] Comment on above: Performed By: #### P SA, ANEU, CBC, ADIFF, CMP, GFR #### [address] [address] Basophils/100 WBC (Bld) 0.6 % Normal 0.0-2.5 [facility] Comment on above: Performed By: #### P SA, ANEU, CBC, ADIFF, CMP, GFR #### [address] [address] Eosinophil, Absolute 0.0 10 3/mcL Normal 0.0-0.4 [facility] Comment on above: Performed By: #### P SA, ANEU, CBC, ADIFF, CMP, GFR #### [address] [address] Eosinophils/100 WBC (Bld) 0.5 % Normal 0.0-7.0 [facility] Comment on above: Performed By: #### P SA, ANEU, CBC, ADIFF, CMP, GFR #### [address] [address] Lymphocyte, Absolute 1.6 10 3/mcL Normal 0.8-3.9 [facility] Comment on above: Performed By: #### P SA, ANEU, CBC, ADIFF, CMP, GFR #### [address] [address] Lymphocytes/100 WBC (Bld) 19.4 % Normal 10.0-50.0 [facility] Comment on above: Performed By: #### P SA, ANEU, CBC, ADIFF, CMP, GFR #### [address] [address] Monocyte, Absolute 0.6 10 3/mcL Normal 0.2-1.0 [facility] Comment on above: Performed By: #### P SA, ANEU, CBC, ADIFF, CMP, GFR #### [address] [address] Monocytes/100 WBC (Bld) 6.7 % Normal 1.7-13.0 [facility] Comment on above: Performed By: #### P SA, ANEU, CBC, ADIFF, CMP, GFR #### [address] [address] Neutrophils/100 WBC (Bld) 72.8 % Normal 37.0-80.0 [facility] Comment on above: Performed By: #### P SA, ANEU, CBC, ADIFF, CMP, GFR #### [address] [address] .GFRon 12-29-2023 GFR 72 ml/min/1.73sqm Normal [facility] Comment on above: Result Comment: GFR Population [...] SA, ANEU, CBC, ADIFF, CMP, GFR #### [address] [address] GFR Non- 59 ml/min/1.73sqm Normal [facility] Comment on above: Result Comment: GFR Population [...] SA, ANEU, CBC, ADIFF, CMP, GFR #### [place] [address] .NEUABSon 12-29-2023 Neutrophil, Absolute 6.2 10 3/mcL Normal 2.9-6.2 [facility] Comment on above: Performed By: #### P SA, ANEU, CBC, ADIFF, CMP, GFR #### [place] [address] CBCon 12-29-2023 Erythrocyte distribution width (RBC) [Ratio] 13.2 % Normal 11.5-14.5 [facility] Comment on above: Performed By: #### P SA, ANEU, CBC, ADIFF, CMP, GFR #### [place] [address] Hematocrit (Bld) [Volume fraction] 43.6 % Normal 42.0-52.0 [facility] Comment on above: Performed By: #### P SA, ANEU, CBC, ADIFF, CMP, GFR #### [place] [address] Hgb 15.2 G/dL Normal 14.0-18.0 [facility] Comment on above: Performed By: #### P SA, ANEU, CBC, ADIFF, CMP, GFR #### [place] [address] MCH (RBC) [Entitic mass] 31.8 pg High 27.0-31.2 [facility] Comment on above: Performed By: #### P SA, ANEU, CBC, ADIFF, CMP, GFR #### [place] [address] MCHC 34.8 G/dL Normal 31.8-35.4 [facility] Comment on above: Performed By: #### P SA, ANEU, CBC, ADIFF, CMP, GFR #### [address] [address] MCV (RBC) [Entitic vol] 91.5 fL Normal 80.0-94.0 [facility] Comment on above: Performed By: #### P SA, ANEU, CBC, ADIFF, CMP, GFR #### [address] [address] Platelet 229 10 3/mcL Normal 130-400 [facility] Comment on above: Performed By: #### P SA, ANEU, CBC, ADIFF, CMP, GFR #### [address] [address] Platelet mean volume (Bld) [Entitic vol] 7.7 fL Normal 7.4-10.4 [facility] Comment on above: Performed By: #### P SA, ANEU, CBC, ADIFF, CMP, GFR #### [address] [address] RBC 4.77 10 6/mcL Normal 4.04-6.13 [facility] Comment on above: Performed By: #### P SA, ANEU, CBC, ADIFF, CMP, GFR #### [address] [address] WBC 8.5 10 3/mcL Normal 4.6-10.8 [facility] Comment on above: Performed By: #### P SA, ANEU, CBC, ADIFF, CMP, GFR #### [address] [address] CMPon 12-29-2023 Albumin Level 4.3 G/dL Normal 3.4-4.8 [facility] Comment on above: Performed By: #### P SA, ANEU, CBC, ADIFF, CMP, GFR #### [address] [address] Albumin/Globulin [Mass ratio] 2.0 {ratio} Normal 1.1-2.5 [facility] Comment on above: Performed By: #### P SA, ANEU, CBC, ADIFF, CMP, GFR #### [address] [address] ALP [Catalytic activity/Vol] 94 U/L Normal 40-135 [facility] Comment on above: Performed By: #### P SA, ANEU, CBC, ADIFF, CMP, GFR #### [address] [address] ALT [Catalytic activity/Vol] 30 U/L Normal 16-63 [facility] Comment on above: Performed By: #### P SA, ANEU, CBC, ADIFF, CMP, GFR #### [address] [address] AST [Catalytic activity/Vol] 22 U/L Normal 10-40 [facility] Comment on above: Performed By: #### P SA, ANEU, CBC, ADIFF, CMP, GFR #### [place] [id number] Bili Total 0.8 mg/dL Normal 0.2-1.0 [facility] Comment on above: Result Comment: Use of this assay is not recommended for patients undergoing treatment with eltrombopag due to the potential for falsely elevated results. Performed By: #### P SA, ANEU, CBC, ADIFF, CMP, GFR #### [address] [address] BUN/Creatinine Ratio 15 ratio Normal 7-27 [facility] Comment on above: Performed By: #### P SA, ANEU, CBC, ADIFF, CMP, GFR #### [address] [address] Calcium [Mass/Vol] 10.0 mg/dL Normal 8.4-10.2 [facility] Comment on above: Performed By: #### P SA, ANEU, CBC, ADIFF, CMP, GFR #### [address] [address] Chloride [Moles/Vol] 104 mmol/L Normal 98-107 [facility] Comment on above: Performed By: #### P SA, ANEU, CBC, ADIFF, CMP, GFR #### [address] [address] CO2 [Moles/Vol] 22 mmol/L Low 23-31 [facility] Comment on above: Performed By: #### P SA, ANEU, CBC, ADIFF, CMP, GFR #### [place] [id number] Creatinine [Mass/Vol] 1.22 mg/dL Normal 0.70-1.30 [facility] Comment on above: Result Comment: Test ing performed on Sentropi Dimension EXL analyzer using a modified kinetic Jarad technique. Performed By: #### P SA, ANEU, CBC, ADIFF, CMP, GFR #### [place] [address] Electrolyte Balance 13.0 mEq/L Normal 4.0-15.0 [facility] Comment on above: Performed By: #### P SA, ANEU, CBC, ADIFF, CMP, GFR #### [place] [address] Globulin 2.2 G/dL Normal [facility] Comment on above: Performed By: #### P SA, ANEU, CBC, ADIFF, CMP, GFR #### [place] [address] Glucose [Mass/Vol] 98 mg/dL Normal 80-115 [facility] Comment on above: Performed By: #### P SA, ANEU, CBC, ADIFF, CMP, GFR #### [place] [address] Potassium [Moles/Vol] 4.0 mmol/L Normal 3.5-5.1 [facility] Comment on above: Performed By: #### P SA, ANEU, CBC, ADIFF, CMP, GFR #### [place] [address] Sodium [Moles/Vol] 139 mmol/L Normal 136-145 [facility] Comment on above: Performed By: #### P SA, ANEU, CBC, ADIFF, CMP, GFR #### [place] [id number] [place], [place] [address] Total Protein 6.5 G/dL Normal 6.4-8.2 [facility] Comment on above: Performed By: #### P SA, ANEU, CBC, ADIFF, CMP, GFR #### [place] [id number] [place], [place] [address] Urea nitrogen [Mass/Vol] 18 mg/dL Normal 7-18 [facility] Comment on above: Performed By: #### P SA, ANEU, CBC, ADIFF, CMP, GFR #### [place] [id number] [place], [place] [address] LABORATORYOrdered By: SYSTEM SYSTEM on 12-29-2023 Albumin [...] Prostate Specific Antigen 1.17 ng/mL Normal 0.00-4.00 [facility] Comment on above: Performed By: #### P SA, ANEU, CBC, ADIFF, CMP, GFR #### [facility] [address] [place], [place] [address] No Panel Informationon 12-25 Culture Urine <10,000 cfu/ml. No Significant growth. Sensitivity not indicated. [facility] XR SPINE CERVICAL W/ OBLIQUE [...] 05/01/2023 5:26:40 PM Ordering Provider: KEYANNA Tellez [facility] ([place]) Vital Signs Date Time Vital Sign Value Performing Clinician Vi orr 12-14-2024 21:21-0400 Body temperature 97 [degF] Kyrie Lozano [employer] Work Phone: [facility] 12-14-2024 21:21-0400 Diastolic blood pressure 74 mm[Hg] Kyrie Lozano [employer] Work Phone: [facility] 12-14-2024 21:21-0400 Heart rate 61 /min Kyrie Wallacepkins [employer] Work Phone: [facility] 12-14-2024 21:21-0400 Respiratory rate 16 /min Kyrie Ouray [employer] Work Phone: [facility] 12-14-2024 21:21-0400 SaO2% (BldA) [Mass fraction] 99 % Kyrie Ouray [employer] Work Phone: [facility] 12-14-2024 21:21-0400 Systolic blood pressure 136 mm[Hg] Kyrie Lozano [employer] Work Phone: [facility] 12-14-2024 21:00-0400 Body temperature 98.5 [degF] Kyrie Lozano [employer] Work Phone: [facility] 12-14-2024 21:00-0400 Diastolic blood pressure 72 mm[Hg] Kyrie Lozano [employer] Work Phone: [facility] 12-14-2024 21:00-0400 Heart rate 67 /min Kyrie Wallacepkins [employer] Work Phone: [facility] 12-14-2024 21:00-0400 Respiratory rate 18 /min Kyrie Ouray [employer] Work Phone: [facility] 12-14-2024 21:00-0400 SaO2% (BldA) [Mass fraction] 98 % Kyrie Ouray [employer] Work Phone: [facility] 12-14-2024 21:00-0400 Systolic blood pressure 147 mm[Hg] Kyrie Lozano [employer] Work Phone: [facility] 12-14-2024 16:23-0400 Body height 165.1 cm Kyrie Lozano [employer] Work Phone: [facility] 12-14-2024 16:23-0400 Body mass index (BMI) [Ratio] 23.4 kg/m2 Kyrie Lozano [employer] Work Phone: [facility] 12-14-2024 16:23-0400 Body weight 64 kg Kyrie Lozano [employer] Work Phone: [facility] 12-13-2024 15:25-0400 Body temperature 97 [degF] Kyrie Lozano [employer] Work Phone: [facility] 12-13-2024 15:25-0400 Diastolic blood pressure 74 mm[Hg] Kyrie Wallacepkins [employer] Work Phone: [facility] 12-13-2024 15:25-0400 Heart rate 61 /min Kyrie Wallacepkins [employer] Work Phone: [facility] 12-13-2024 15:25-0400 Respiratory rate 16 /min Kyrie Lozano [employer] Work Phone: [facility] 12-13-2024 15:25-0400 SaO2% (BldA) [Mass fraction] 99 % Kyrie Lozano [employer] Work Phone: [facility] 12-13-2024 15:25-0400 Systolic blood pressure 136 mm[Hg] Kyrie Lozano [employer] Work Phone: [facility] 12-13-2024 10:42-0400 Body height 165.1 cm Kyrie Lozano [employer] Work Phone: [facility] 12-13-2024 10:42-0400 Body mass index (BMI) [Ratio] 22.4 kg/m2 Kyrie Lozano [employer] Work Phone: [facility] 12-13-2024 10:42-0400 Body weight 61.1 kg Kyrie Wallacepkins [employer] Work Phone: [facility] 11-07-2024 08:26-0400 Body height 165.1 cm Kyrie Wallacepkins [employer] Work Phone: [facility] 11-07-2024 08:25-0400 Body mass index (BMI) [Ratio] 22.5 kg/m2 Kyrie Wallacepkins [employer] Work Phone: [facility] 11-07-2024 08:25-0400 Body temperature 96.8 [degF] Kyrie Wallacepkins [employer] Work Phone: [facility] 11-07-2024 08:25-0400 Body weight 61.46 kg Kyrie Wallacepkins [employer] Work Phone: [facility] 11-07-2024 08:25-0400 Diastolic blood pressure 69 mm[Hg] Kyrie Wallacepkins [employer] Work Phone: [facility] 11-07-2024 08:25-0400 Heart rate 64 /min Kyrie Marta [employer] Work Phone: [facility] 11-07-2024 08:25-0400 Respiratory rate 16 /min Kyrie Wallacepkins [employer] Work Phone: [facility] 11-07-2024 08:25-0400 SaO2% (BldA) [Mass fraction] 97 % Kyrie Wallacepkins [employer] Work Phone: [facility] 11-07-2024 08:25-0400 Systolic blood pressure 110 mm[Hg] Kyrie Wallacepkins [employer] Work Phone: [facility] 11-07-2024 08:03-0400 Body mass index (BMI) [Ratio] 22.5 kg/m2 Kyrie Wallacepkins [employer] Work Phone: [facility] 11-07-2024 08:03-0400 Body temperature 96.8 [degF] Kyrie Wallacepkins [employer] Work Phone: [facility] 11-07-2024 08:03-0400 Body weight 61.46 kg Kyrie Marta [employer] Work Phone: [facility] 11-07-2024 08:03-0400 Diastolic blood pressure 69 mm[Hg] Kyrie Lozano [employer] Work Phone: [facility] 11-07-2024 08:03-0400 Heart rate 64 /min Kyrie Lozano [employer] Work Phone: [facility] 11-07-2024 08:03-0400 Respiratory rate 16 /min Kyrie Lozano [employer] Work Phone: [facility] 11-07-2024 08:03-0400 SaO2% (BldA) [Mass fraction] 97 % Kyrie Lozano [employer] Work Phone: [facility] 11-07-2024 08:03-0400 Systolic blood pressure 110 mm[Hg] Kyrie Lozano [employer] Work Phone: [facility] 08-12-2024 10:32-0400 Body height 165.1 cm Kyrie Lozano [employer] Work Phone: [facility] 08-12-2024 09:54-0400 Body mass index (BMI) [Ratio] 22.1 kg/m2 Kyrie Lozano [employer] Work Phone: [facility] 08-12-2024 09:54-0400 Body temperature 96.5 [degF] Kyrie Lozano [employer] Work Phone: [facility] 08-12-2024 09:54-0400 Body weight 60.52 kg Kyrie Lozano [employer] Work Phone: [facility] 08-12-2024 09:54-0400 Diastolic blood pressure 72 mm[Hg] Kyrie Lozano [employer] Work Phone: [facility] 08-12-2024 09:54-0400 Heart rate 75 /min Kyrie Lozano [employer] Work Phone: [facility] 08-12-2024 09:54-0400 Respiratory rate 18 /min Kyrie Lozano [employer] Work Phone: [facility] 08-12-2024 09:54-0400 SaO2% (BldA) [Mass fraction] 100 % Kyrie Wallacepkins [employer] Work Phone: [facility] 08-12-2024 09:54-0400 Systolic blood pressure 115 mm[Hg] Kyrie Lozano [employer] Work Phone: [facility] 07-24-2024 21:54-0400 Body temperature 99.2 [degF] Kyrie Wallacepkins [employer] Work Phone: [facility] 07-24-2024 21:54-0400 Diastolic blood pressure 72 mm[Hg] Kyrie Lozano [employer] Work Phone: [facility] 07-24-2024 21:54-0400 Heart rate 77 /min Kyrie Lozano [employer] Work Phone: [facility] 07-24-2024 21:54-0400 Respiratory rate 19 /min Kyrie Wallacepkins [employer] Work Phone: [facility] 07-24-2024 21:54-0400 SaO2% (BldA) [Mass fraction] 99 % Kyrie Wallacepkins [employer] Work Phone: [facility] 07-24-2024 21:54-0400 Systolic blood pressure 114 mm[Hg] Kyrie Lozano [employer] Work Phone: [facility] 07-24-2024 17:18-0400 Body height 165.1 cm Kyrie Ouray [employer] Work Phone: [facility] 07-24-2024 17:18-0400 Body mass index (BMI) [Ratio] 22.5 kg/m2 Kyrie Ouray [employer] Work Phone: [facility] 07-24-2024 17:18-0400 Body weight 61.41 kg Kyrie Lozano [employer] Work Phone: [facility] 07-16-2024 08:01-0400 Body mass index (BMI) [Ratio] 23.6 kg/m2 Kyrie Wallacepkins [employer] Work Phone: [facility] 07-16-2024 08:01-0400 Body temperature 97 [degF] Kyrie Wallacepkins [employer] Work Phone: [facility] 07-16-2024 08:01-0400 Body weight 64.58 kg Kyrie Wallacepkins [employer] Work Phone: [facility] 07-16-2024 08:01-0400 Diastolic blood pressure 70 mm[Hg] Kyrie Lozano [employer] Work Phone: [facility] 07-16-2024 08:01-0400 Heart rate 60 /min Kyrie Lozano [employer] Work Phone: [facility] 07-16-2024 08:01-0400 Respiratory rate 18 /min Kyrie Wallacepkins [employer] Work Phone: [facility] 07-16-2024 08:01-0400 SaO2% (BldA) [Mass fraction] 100 % Kyrie Wallacepkins [employer] Work Phone: [facility] 07-16-2024 08:01-0400 Systolic blood pressure 129 mm[Hg] Kyrie Wallacepkins [employer] Work Phone: [facility] 07-15-2024 08:31-0400 Body mass index (BMI) [Ratio] 22.5 kg/m2 Kyrie Wallacepkins [employer] Work Phone: [facility] 07-15-2024 08:31-0400 Body temperature 98.4 [degF] Kyrie Marta [employer] Work Phone: [facility] 07-15-2024 08:31-0400 Body weight 61.4 kg Kyrie Marta [employer] Work Phone: [facility] 07-15-2024 08:31-0400 Diastolic blood pressure 65 mm[Hg] Kyrie Lozano [employer] Work Phone: [facility] 07-15-2024 08:31-0400 Heart rate 64 /min Kyrie Lozano [employer] Work Phone: [facility] 07-15-2024 08:31-0400 Respiratory rate 18 /min Kyrie Lozano [employer] Work Phone: [facility] 07-15-2024 08:31-0400 SaO2% (BldA) [Mass fraction] 100 % Kyrie Wallacepkins [employer] Work Phone: [facility] 07-15-2024 08:31-0400 Systolic blood pressure 105 mm[Hg] Kyrie Wallacepkins [employer] Work Phone: [facility] 07-11-2024 08:06-0400 Body mass index (BMI) [Ratio] 23.6 kg/m2 Kyrie Wallacepkins [employer] Work Phone: [facility] 07-11-2024 08:06-0400 Body temperature 97.5 [degF] Kyrie Wallacepkins [employer] Work Phone: [facility] 07-11-2024 08:06-0400 Body weight 64.52 kg Kyrie Lozano [employer] Work Phone: [facility] 07-11-2024 08:06-0400 Diastolic blood pressure 72 mm[Hg] Kyrie Wallacepkins [employer] Work Phone: [facility] 07-11-2024 08:06-0400 Heart rate 49 /min Kyrie Wallacepkins [employer] Work Phone: [facility] 07-11-2024 08:06-0400 Respiratory rate 18 /min Kyrie Wallacepkins [employer] Work Phone: [facility] 07-11-2024 08:06-0400 SaO2% (BldA) [Mass fraction] 100 % Kyrie Ouray [employer] Work Phone: [facility] 07-11-2024 08:06-0400 Systolic blood pressure 114 mm[Hg] Kyrie Wallacepkins [employer] Work Phone: [facility] 07-08-2024 08:33-0400 Body mass index (BMI) [Ratio] 22.8 kg/m2 Kyrie Wallacepkins [employer] Work Phone: [facility] 07-08-2024 08:33-0400 Body temperature 98.2 [degF] Kyrie Wallacepkins [employer] Work Phone: [facility] 07-08-2024 08:33-0400 Body weight 62.39 kg Kyrie Wallacepkins [employer] Work Phone: [facility] 07-08-2024 08:33-0400 Diastolic blood pressure 65 mm[Hg] Kyrie Wallacepkins [employer] Work Phone: [facility] 07-08-2024 08:33-0400 Heart rate 55 /min Kyrie Wallacepkins [employer] Work Phone: [facility] 07-08-2024 08:33-0400 Respiratory rate 18 /min Kyrie Wallacepkins [employer] Work Phone: [facility] 07-08-2024 08:33-0400 SaO2% (BldA) [Mass fraction] 100 % Kyrie Wallacepkins [employer] Work Phone: [facility] 07-08-2024 08:33-0400 Systolic blood pressure 106 mm[Hg] Kyrie Wallacepkins [employer] Work Phone: [facility] 07-04-2024 08:01-0400 Body mass index (BMI) [Ratio] 23.6 kg/m2 Kyrie Wallacepkins [employer] Work Phone: [facility] 07-04-2024 08:01-0400 Body temperature 96.9 [degF] Kyrie Ouray [employer] Work Phone: [facility] 07-04-2024 08:01-0400 Body weight 64.52 kg Kyrie Wallacepkins [employer] Work Phone: [facility] 07-04-2024 08:01-0400 Diastolic blood pressure 70 mm[Hg] Kyrie Marta [employer] Work Phone: [facility] 07-04-2024 08:01-0400 Heart rate 60 /min Kyrie Ouray [employer] Work Phone: [facility] 07-04-2024 08:01-0400 Respiratory rate 16 /min Kyrie Wallacepkins [employer] Work Phone: [facility] 07-04-2024 08:01-0400 SaO2% (BldA) [Mass fraction] 98 % Kyrie Wallacepkins [employer] Work Phone: [facility] 07-04-2024 08:01-0400 Systolic blood pressure 109 mm[Hg] Kyrie Lozano [employer] Work Phone: [facility] 07-01-2024 08:39-0400 Body mass index (BMI) [Ratio] 23.5 kg/m2 Kyrie Marta [employer] Work Phone: [facility] 07-01-2024 08:39-0400 Body temperature 98.2 [degF] Kyrie Wallacepkins [employer] Work Phone: [facility] 07-01-2024 08:39-0400 Body weight 64.15 kg Kyrie Lozano [employer] Work Phone: [facility] 07-01-2024 08:39-0400 Diastolic blood pressure 60 mm[Hg] Kyrie Lozano [employer] Work Phone: [facility] 07-01-2024 08:39-0400 Heart rate 58 /min Kyrie Ouray [employer] Work Phone: [facility] 07-01-2024 08:39-0400 Respiratory rate 18 /min Kyrie Lozano [employer] Work Phone: [facility] 07-01-2024 08:39-0400 SaO2% (BldA) [Mass fraction] 100 % Kyrie Wallacepkins [employer] Work Phone: [facility] 07-01-2024 08:39-0400 Systolic blood pressure 104 mm[Hg] Kyrie Lozano [employer] Work Phone: [facility] 06-26-2024 08:12-0400 Body mass index (BMI) [Ratio] 24.7 kg/m2 Kyrie Wallacepkins [employer] Work Phone: [facility] 06-26-2024 08:12-0400 Body temperature 97 [degF] Kyrie Wallacepkins [employer] Work Phone: [facility] 06-26-2024 08:12-0400 Body weight 67.27 kg Kyrie Wallacepkins [employer] Work Phone: [facility] 06-26-2024 08:12-0400 Diastolic blood pressure 68 mm[Hg] Kyrie Wallacepkins [employer] Work Phone: [facility] 06-26-2024 08:12-0400 Heart rate 56 /min Kyrie Lozano [employer] Work Phone: [facility] 06-26-2024 08:12-0400 Respiratory rate 16 /min Kyrie Wallacepkins [employer] Work Phone: [facility] 06-26-2024 08:12-0400 SaO2% (BldA) [Mass fraction] 99 % Kyrie Wallacepkins [employer] Work Phone: [facility] 06-26-2024 08:12-0400 Systolic blood pressure 128 mm[Hg] Kyrie Wallacepkins [employer] Work Phone: [facility] 06-24-2024 12:29-0400 Diastolic blood pressure 63 mm[Hg] Kyrie Ouray [employer] Work Phone: [facility] 06-24-2024 12:29-0400 Heart rate 54 /min Kyrie Lozano [employer] Work Phone: [facility] 06-24-2024 12:29-0400 Systolic blood pressure 123 mm[Hg] Kyrie Lozano [employer] Work Phone: [facility] 06-24-2024 08:42-0400 Body mass index (BMI) [Ratio] 24.3 kg/m2 Kyrie Lozano [employer] Work Phone: [facility] 06-24-2024 08:42-0400 Body temperature 98.3 [degF] Kyrie Lozano [employer] Work Phone: [facility] 06-24-2024 08:42-0400 Body weight 66.25 kg Kyrie Lozano [employer] Work Phone: [facility] 06-24-2024 08:42-0400 Diastolic blood pressure 67 mm[Hg] Kyrie Lozano [employer] Work Phone: [facility] 06-24-2024 08:42-0400 Heart rate 59 /min Kyrie Lozano [employer] Work Phone: [facility] 06-24-2024 08:42-0400 Respiratory rate 18 /min Kyrie Lozano [employer] Work Phone: [facility] 06-24-2024 08:42-0400 SaO2% (BldA) [Mass fraction] 100 % Kyrie Lozano [employer] Work Phone: [facility] 06-24-2024 08:42-0400 Systolic blood pressure 118 mm[Hg] Kyrie Lozano [employer] Work Phone: [facility] 06-19-2024 08:05-0500 Body mass index (BMI) [Ratio] 24 kg/m2 Kyrie Lozano [employer] Work Phone: [facility] 06-19-2024 08:05-0500 Body temperature 97.8 [degF] Kyrie Ouray [employer] Work Phone: [facility] 06-19-2024 08:05-0500 Body weight 65.51 kg Kyrie Wallacepkins [employer] Work Phone: [facility] 06-19-2024 08:05-0500 Diastolic blood pressure 62 mm[Hg] Kyrie Wallacepkins [employer] Work Phone: [facility] 06-19-2024 08:05-0500 Heart rate 63 /min Kyrie Wallacepkins [employer] Work Phone: [facility] 06-19-2024 08:05-0500 Respiratory rate 16 /min Kyrie Wallacepkins [employer] Work Phone: [facility] 06-19-2024 08:05-0500 SaO2% (BldA) [Mass fraction] 98 % Kyrie Wallacepkins [employer] Work Phone: [facility] 06-19-2024 08:05-0500 Systolic blood pressure 98 mm[Hg] Kyrie Wallacepkins [employer] Work Phone: [facility] 06-14-2024 08:13-0500 Body temperature 97.6 [degF] Kyrie Wallacepkins [employer] Work Phone: [facility] 06-14-2024 08:13-0500 Diastolic blood pressure 64 mm[Hg] Kyrie Wallacepkins [employer] Work Phone: [facility] 06-14-2024 08:13-0500 Heart rate 56 /min Kyrie Ouray [employer] DEV[employer]OPER [employer] Work Phone: [facility] 06-14-2024 08:13-0500 Respiratory rate 18 /min Kyrie Ouray [employer] DEVELOPER [employer] Work Phone: [facility] 06-14-2024 08:13-0500 SaO2% (BldA) [Mass fraction] 100 % Kyrie Ouray [employer]ELOPER [employer] Work Phone: [facility] 06-14-2024 08:13-0500 Systolic blood pressure 101 mm[Hg] Kyrie Lozano NET DEVELOPER [employer]-C Work Phone: [facility] 06-14-2024 06:25-0500 Body mass index (BMI) [Ratio] 24 kg/m2 Kyrie Lozano [employer]OPER [employer] Work Phone: [facility] 06-14-2024 06:25-0500 Body weight 65.7 kg Kyrie Lozano [employer]OPER [employer] Work Phone: [facility] 06-11-2024 10:37-0500 Body height 165.1 cm Roel Barrios MD Work Phone: [facility] 06-11-2024 10:37-0500 Body mass index (BMI) [Ratio] 24.1 kg/m2 Roel Barrios MD Work Phone: [facility] 06-11-2024 10:37-0500 Body weight 65.7 kg Roel Barrios MD Work Phone: [facility] 06-11-2024 10:37-0500 Diastolic blood pressure 78 mm[Hg] Roel Barrios MD Work Phone: [facility] 06-11-2024 10:37-0500 Heart rate 69 /min Roel Barrios MD Work Phone: [facility] 06-11-2024 10:37-0500 Systolic blood pressure 130 mm[Hg] Roel Barrios MD Work Phone: [facility] 06-10-2024 07:56-0500 Body mass index (BMI) [Ratio] 24.6 kg/m2 Kyrie Lozano [employer]OPER [employer] Work Phone: [facility] 06-10-2024 07:56-0500 Body weight 67.13 kg Kyrie Lozano [employer] Work Phone: [facility] 06-10-2024 07:56-0500 Diastolic blood pressure 76 mm[Hg] Kyrie Lozano [employer] DEVELOPER [employer] Work Phone: [facility] 06-10-2024 07:56-0500 Respiratory rate 16 /min Kyrie Lozano [employer]OPER [employer] Work Phone: [facility] 06-10-2024 07:56-0500 Systolic blood pressure 126 mm[Hg] Kyrie Wallacepkins NET DEVELOPER [employer]-C Work Phone: [facility] 05-24-2024 08:05-0500 Body mass index (BMI) [Ratio] 24.3 kg/m2 Kyrie Lozano [employer] DEVELOPER [employer] Work Phone: [facility] 05-24-2024 08:05-0500 Body temperature 96.7 [degF] Kyrie Wallacepkins NET DEVELOPER [employer]-C Work Phone: [facility] 05-24-2024 08:05-0500 Body weight 66.33 kg Kyrie Ouray [employer] DEVELOPER [employer] Work Phone: [facility] 05-24-2024 08:05-0500 Diastolic blood pressure 65 mm[Hg] Kyrie Lozano [employer] DEVELOPER [employer] Work Phone: [facility] 05-24-2024 08:05-0500 Heart rate 69 /min Kyrie Wallacepkins [employer] DEVELOPER [employer] Work Phone: [facility] 05-24-2024 08:05-0500 Respiratory rate 16 /min Kyrie Wallacepkins [employer] DEVELOPER [employer] Work Phone: [facility] 05-24-2024 08:05-0500 SaO2% (BldA) [Mass fraction] 100 % Kyrie Marta [employer] DEVELOPER [employer] Work Phone: [facility] 05-24-2024 08:05-0500 Systolic blood pressure 109 mm[Hg] Kyrie Ouray [employer] DEVELOPER [employer] Work Phone: [facility] 05-21-2024 10:56-0500 Body mass index (BMI) [Ratio] 24.3 kg/m2 Kyrie Ouray [employer]ELOPER [employer] Work Phone: [facility] 05-21-2024 10:56-0500 Body temperature 97.3 [degF] Kyrie Lozano [employer]OPER [employer] Work Phone: [facility] 05-21-2024 10:56-0500 Body weight 66.28 kg Kyrie Wallacepkins [employer] DEVELOPER [employer] Work Phone: [facility] 05-21-2024 10:56-0500 Diastolic blood pressure 71 mm[Hg] Kyrie Wallacepkins [employer] DEVELOPER [employer] Work Phone: [facility] 05-21-2024 10:56-0500 Heart rate 57 /min Kyrie Marta [employer]OPER [employer] Work Phone: [facility] 05-21-2024 10:56-0500 Respiratory rate 16 /min Kyrie Wallacepkins [employer] DEVELOPER [employer] Work Phone: [facility] 05-21-2024 10:56-0500 SaO2% (BldA) [Mass fraction] 97 % Kyrie Marta [employer] DEVELOPER [employer] Work Phone: [facility] 05-21-2024 10:56-0500 Systolic blood pressure 154 mm[Hg] Kyrie Lozano [employer] DEVELOPER [employer] Work Phone: [facility] 05-10-2024 12:31-0500 Body temperature 97 [degF] Kyrie Ouray [employer] DEVELOPER [employer] Work Phone: [facility] 05-10-2024 12:31-0500 Diastolic blood pressure 72 mm[Hg] Kyrie Ouray [employer] DEVELOPER [employer] Work Phone: [facility] 05-10-2024 12:31-0500 Heart rate 58 /min Kyrie Lozano [employer]OPER [employer] Work Phone: [facility] 05-10-2024 12:31-0500 Respiratory rate 16 /min Kyrie Marta [employer] DEVELOPER [employer] Work Phone: [facility] 05-10-2024 12:31-0500 SaO2% (BldA) [Mass fraction] 99 % Kyrie Wallacepkins [employer] DEVELOPER [employer] Work Phone: [facility] 05-10-2024 12:31-0500 Systolic blood pressure 105 mm[Hg] Kyrie Lozano [employer]OPER [employer] Work Phone: [facility] 05-10-2024 10:11-0500 Body mass index (BMI) [Ratio] 23.8 kg/m2 Kyrie Wallacepkins [employer]ELOPER [employer] Work Phone: [facility] 05-10-2024 10:11-0500 Body weight 65 kg Kyrie Wallacepkins [employer]OPER [employer] Work Phone: [facility] 04-30-2024 09:21-0500 Body mass index (BMI) [Ratio] 23.8 kg/m2 Kyrie Wallacepkins [employer]OPER [employer] Work Phone: [facility] 04-30-2024 09:21-0500 Body temperature 97 [degF] Kyrie Lozano [employer]OPER [employer] Work Phone: [facility] 04-30-2024 09:21-0500 Body weight 64.86 kg Kyrie Lozano [employer]OPER [employer] Work Phone: [facility] 04-30-2024 09:21-0500 Diastolic blood pressure 71 mm[Hg] Kyrie Marta [employer]OPER [employer] Work Phone: [facility] 04-30-2024 09:21-0500 Heart rate 52 /min Kyrie Marta [employer]OPER [employer] Work Phone: [facility] 04-30-2024 09:21-0500 Respiratory rate 18 /min Kyrie Marta [employer]OPER [employer] Work Phone: [facility] 04-30-2024 09:21-0500 SaO2% (BldA) [Mass fraction] 100 % Kyrie Marta [employer]OPER [employer] Work Phone: [facility] 04-30-2024 09:21-0500 Systolic blood pressure 131 mm[Hg] Kyrie Lozano [employer]OPER [employer] Work Phone: [facility] 04-25-2024 16:12-0500 Body mass index (BMI) [Ratio] 24 kg/m2 Kyrie Lozano [employer] Work Phone: [facility] 04-25-2024 16:12-0500 Body temperature 98.6 [degF] Kyrie Lozano [employer] Work Phone: [facility] 04-25-2024 16:12-0500 Body weight 65.51 kg Kyrie Lozano [employer] Work Phone: [facility] 04-25-2024 16:12-0500 Diastolic blood pressure 70 mm[Hg] Kyrie Wallacepkins [employer]ELOPER [employer] Work Phone: [facility] 04-25-2024 16:12-0500 Heart rate 57 /min Kyrie Lozano [employer] Work Phone: [facility] 04-25-2024 16:12-0500 Respiratory rate 18 /min Kyrie Lozano [employer]OPER [employer] Work Phone: [facility] 04-25-2024 16:12-0500 SaO2% (BldA) [Mass fraction] 98 % Kyrie Lozano [employer] Work Phone: [facility] 04-25-2024 16:12-0500 Systolic blood pressure 131 mm[Hg] Kyrie Lozano [employer] Work Phone: [facility] 2024 08:26-0500 Body mass index (BMI) [Ratio] 24.5 kg/m2 Kyrie Lozano [employer] Work Phone: [facility] 2024 08:26-0500 Body temperature 98.2 [degF] Kyrie Lozano [employer] Work Phone: [facility] 2024 08:26-0500 Body weight 66.81 kg Kyrie Wallacepkins [employer]OPER [employer] Work Phone: [facility] 2024 08:26-0500 Diastolic blood pressure 69 mm[Hg] Kyrie Ouray [employer]OPER [employer] Work Phone: [facility] 2024 08:26-0500 Heart rate 66 /min Kyrie Wallacepkins [employer]OPER [employer] Work Phone: [facility] 2024 08:26-0500 Respiratory rate 18 /min Kyrie Wallacepkins [employer]OPER [employer] Work Phone: [facility] 2024 08:26-0500 SaO2% (BldA) [Mass fraction] 100 % Kyrie Wallacepkins [employer]OPER [employer] Work Phone: [facility] 2024 08:26-0500 Systolic blood pressure 116 mm[Hg] Kyrie Wallacepkins [employer]ELOPER [employer] Work Phone: [facility] 04-04-2024 15:17-0500 Body mass index (BMI) [Ratio] 23.9 kg/m2 Kyrie Ouray [employer]OPER [employer] Work Phone: [facility] 04-04-2024 15:17-0500 Body temperature 98.8 [degF] Kyrie Lozano [employer]OPER [employer] Work Phone: [facility] 04-04-2024 15:17-0500 Body weight 65.31 kg Kyrie Wallacepkins [employer]OPER [employer] Work Phone: [facility] 04-04-2024 15:17-0500 Diastolic blood pressure 74 mm[Hg] Kyrie Wallacepkins [employer]OPER [employer] Work Phone: [facility] 04-04-2024 15:17-0500 Heart rate 67 /min Kyrie Lozano [employer] Work Phone: [facility] 04-04-2024 15:17-0500 Respiratory rate 16 /min Kyrie Wallacepkins [employer]OPER [employer] Work Phone: [facility] 04-04-2024 15:17-0500 SaO2% (BldA) [Mass fraction] 100 % Kyrie Ouray [employer] Work Phone: [facility] 04-04-2024 15:17-0500 Systolic blood pressure 126 mm[Hg] Kyrie Marta [employer]OPER [employer] Work Phone: [facility] 05-01-2023 16:10-0500 Body height [address] KEYANNA STEELE DO [facility] 05-01-2023 16:10-0500 Body temperature 96.98 [degF] DR KEYANAN STEELE DO [facility] 05-01-2023 16:10-0500 Body weight 63.[address] KEYANNA STEELE DO [facility] 05-01-2023 16:10-0500 Diastolic Blood Pressure Non-Invasive 80 mm[Hg] DR KEYANNA STEELE DO [facility] 05-01-2023 16:10-0500 Heart rate 90 /min DR KEYANNA STEELE DO [facility] 05-01-2023 16:10-0500 Respiratory rate 18 /min DR KEYANNA STEELE DO [facility] 05-01-2023 16:10-0500 Systolic Blood Pressure Non-Invasive 161 mm[Hg] DR KEYANNA STEELE DO [facility] Encounters Encounter Date Encounter Type Care Provider Facility Start: 12-14-2024 Admission to same da y surgery center Dr. Pankaj Lou MD -[facility] Work Phone: Start: 12-14-2024 ambulatory Kyrie Lozano [employer] DEVELOPER [employer]C Work Phone: -[facility] Start: 12-13-2024 End: 12-13-2024 Admission to same day surgery center Dr. Pankaj Lou MD -[facility] Start: 12-13-2024 End: 12-13-2024 ambulatory Kyrie Lozano NET DEVELOPER [employer] Facility:[facility] Start: 11-07-[address] Donny Martinez MD -[facility] Start: 11-07-2024 End: 11-07-[address] Mahad Villatoro DO -[facility] Work Phone: Start: 11-07-2024 End: 11-07-2024 ambulatory Kyrie Sierra Marta [employer] DEVELOPER [employer]C Work Phone: -[facility] Start: 10-30-2024 End: 10-30-2024 ambulatory Kyrie Lozano [employer] DEVELOPER [employer] Work Phone: -[facility] Start: 10-30-2024 End: 10-30-[address] Donny Martinez MD -[facility] Work Phone: Start: 10-30-[address] Donny Martinez MD -[facility] Start: 10-30-2024 End: 10-30-2024 ambulatory Kyrie Lozano NET DEVELOPER [employer] Facility:[facility] Start: 08-12-2024 End: 08-12-[address] Mahad Villatoro DO [facility] Work Phone: Start: 08-12-2024 End: 08-12-2024 ambulatory Kyrie Sierra Marta NET DEVELOPER CONTRACT Facility:[facility] Start: 07-24-2024 End: 07-24-2024 Emergency department patient visit Kyrie Lozano [employer] DEVELOPER [employer] Work Phone: -Emergency Department Work Phone: Start: 07-16-2024 Non-patient / Non-visit Dr. Mahad Villatoro [facility] Work Phone: Start: 07-16-2024 ambulatory Mahad Villatoro Facility: [facility] Start: 07-16-[address] Donny Martinez MD -Radiation Oncology Start: 07-16-2024 End: 07-16-[address] Mahad Villatoro [facility] Work Phone: Start: 07-16-2024 End: 07-16-2024 ambulatory Kyrie Lozano NET DEVELOPER [employer] Facility:[facility] Start: 07-15-2024 End: 07-15-[address] Donny Martinez MD -[facility] Work Phone: Start: 07-15-2024 End: 07-15-2024 ambulatory Kyrie Lozano NET DEVELOPER [employer] Facility:[facility] Start: 07-11-2024 End: 07-11-[address] [facility] Start: 07-11-2024 End: 07-11-2024 ambulatory Kyrie Lozano NET DEVELOPER [employer] Facility:[facility] Start: 07-08-2024 End: 07-08-[address] Donny Martinez MD [facility] Work Phone: Start: 07-08-2024 End: 07-08-2024 ambulatory Kyrie Lozano NET DEVELOPER [employer] Facility:[facility] Start: 07-04-2024 End: 07-04-[address] Mahad Villatoro DO [facility] Work Phone: Start: 07-04-2024 End: 07-04-2024 ambulatory Kyrie Lozano NET DEVELOPER [employer] Facility:[facility] Start: 07-01-2024 End: 07-01-[address] Donny Martinez MD [facility] Work Phone: Start: 07-01-2024 End: 07-01-2024 ambulatory Kyrie Lozano NET DEVELOPER [employer] Facility:[facility] Start: 06-26-2024 End: 06-26-[address] Mahad Villatoro DO [facility] Work Phone: Start: 06-26-2024 End: 06-26-2024 ambulatory Mahad Villatoro Facility:[facility] Start: 06-24-2024 Non-patient / Non-visit Dr. Donny Ruiz MD -[facility] Start: 06-24-2024 End: 06-24-[address] Donny Martinez MD [facility] Work Phone: Start: 06-24-2024 End: 06-24-2024 ambulatory Kyrie Lozano NET DEVELOPER [employer] Facility:[facility] Start: 06-21-2024 ambulatory Kyrie Lozano NET DEVELOPER [employer] Facility:[facility] Start: 06-21-2024 Non-patient / Non-visit Dr. Mahad Villatoro DO [facility] Start: 06-20-2024 ambulatory Kyrie Lozano NET DEVELOPER [employer] Facility:[facility] Start: 06-20-2024 Non-patient / Non-visit [facility] Start: 06-19-2024 End: 06-19-2024 Patient encounter procedure Shantelvanessa SantacruzJr NET DEVELOPER CONTRACT- -[facility] Work Phone: Start: 06-19-2024 End: 06-19-2024 ambulatory Kyrie Lozano NET DEVELOPER [employer] Facility:[facility] Start: 06-17-2024 ambulatory Kyrie Lozano NET DEVELOPER CONTRACT Facility:[facility] Start: 06-17-2024 Non-patient / Non-visit [facility] Start: 06-14-2024 ambulatory Kyrie Lozano NET DEVELOPER CONTRACT Facility:[facility] Start: 06-14-2024 Non-patient / Non-visit Dr. Buddy Mccallum MD -[facility] Start: 06-14-2024 End: 06-14-2024 Admission to same day surgery center Dr. Buddy Mccallum MD -[facility] Start: 06-14-2024 End: 06-14-2024 ambulatory Kyrie Lozano NET DEVELOPER [employer] Facility:[facility] Start: 06-12-2024 End: 06-12-2024 Patient encounter [...] Patient encounter procedure Dr. Buddy Mccallum MD -[facility] Work Phone: Start: 06-10-2024 End: 06-10-2024 ambulatory Kyrie Lozano NET DEVELOPER [employer] Facility:[facility] Start: 05-24-2024 End: 05-24-[address] Mahad Villatoro DO -[facility] Work Phone: Start: 05-24-2024 End: 05-24-2024 ambulatory Kyrie Lozano NET DEVELOPER [employer] Facility:[facility] Start: 05-21-2024 End: 05-21-[address] Jules Fuentes MD -[facility] Work Phone: Start: 05-21-2024 End: 05-21-2024 ambulatory Kyrie Lozano NET DEVELOPER [employer] Facility:[facility] Start: 05-10-2024 Non-patient / Non-visit Dr. Young Samuels DO [facility] Start: 05-10-2024 End: 05-10-2024 Admission to same day surgery center Dr. Young Samuels DO -[facility] Work Phone: Start: 05-10-2024 End: 05-10-2024 ambulatory Kyrie Lozano NET DEVELOPER CONTRACT Facility:[facility] Start: 05-08-2024 ambulatory Kyrie Lozano NET DEVELOPER [employer] Facility:[facility] Start: 05-08-2024 Non-patient / Non-visit Dr. Young Samuels DO [facility] Start: 04-30-2024 End: 04-30-[address] Young Samuels DO [facility] Work Phone: Start: 04-30-2024 End: 04-30-2024 ambulatory Kyrie Lozano NET DEVELOPER CONTRACT Facility:[facility] Start: 04-30-2024 End: 04-30-2024 ambulatory Kyrie Lozano NET DEVELOPER CONTRACT Facility:[facility] Start: 04-25-2024 End: 04-25-[address] Donny Martinez MD -[facility] Work Phone: Start: 04-25-2024 End: 04-25-2024 ambulatory Kyrie Lozano NET DEVELOPER CONTRACT Facility:[facility] Start: 2024 End: [address] Donny Martinez MD -[facility] Work Phone: Start: 2024 End: 2024 ambulatory Kyrie Lozano NET DEVELOPER CONTRACT Facility:[facility] Start: 04-11-2024 End: 04-11-[address] Donny Martinez MD -[facility] Work Phone: Start: 04-11-2024 End: 04-11-2024 ambulatory Kyrie Lozano NET DEVELOPER CONTRACT Facility:[facility] Start: 04-04-2024 End: 04-04-[address] Donny Martinez MD -[facility] Work Phone: Start: 04-04-2024 End: 04-04-2024 ambulatory Kyrie Lozano NET DEVELOPER CONTRACT Facility:[facility] Start: 03-20-2024 ambulatory Kyrie Lozano NET DEVELOPER CONTRACT Facility:[facility] Start: 03-13-2024 End: 03-13-2024 ambulatory Kyrie Lozano NET DEVELOPER CONTRACT Facility:[facility] Start: 01-31-2024 End: 02-01-2024 ambulatory Kyrie Lozano NET DEVELOPER CONTRACT Facility:[facility] Start: 01-31-2024 End: 01-31-2024 ambulatory Kyrie Rigo Lozano NET DEVELOPER CONTRACT Facility:[facility] Start: 01-08-2024 End: 01-08-2024 ambulatory KYRIE LOZANO MANAGER PATIENT - NURSE MIDWIFE/CLINICAL INSTRUCTOR Facility:[facility] Start: 01-08-2024 End: 01-08-2024 Patient encounter procedure KYRIE LOZANO MANAGER PATIENT - NURSE MIDWIFE/CLINICAL INSTRUCTOR [facility] Start: 12-29-2023 End: 12-29-2023 ambulatory KYRIE WALLACEPKINS MANAGER PATIENT - NURSE MIDWIFE/CLINICAL INSTRUCTOR Facility:[facility] Start: 12-29-2023 End: 12-29-2023 Patient encounter procedure KYRIE Neyda WALLACEMARTA MANAGER PATIENT - NURSE MIDWIFE/CLINICAL INSTRUCTOR [facility] Start: 12-26-2023 End: 12-30-2023 ambulatory KYRIE WALLACEPKINS MANAGER PATIENT - NURSE MIDWIFE/CLINICAL INSTRUCTOR Facility:[facility] Start: 12-26-2023 End: 12-30-2023 Outreach Lab KYRIE LOZANO MANAGER PATIENT - NURSE MIDWIFE/CLINICAL INSTRUCTOR [facility] Start: 05-01-2023 End: 05-01-2023 Emergency department patient visit DR KEYANNA STEELE DO [facility] Procedures Date Procedure Procedure Detail Performing Clinician Start: 12-14-2024 Computed tomography of abdomen and pelvis with intravenous contrast Kyrie Ouray NET DEVELOPER [employer]-C Work Phone: Start: 12-14-2024 Estimated creatinine clearance Kyrie Ouray NET DEVELOPER [employer]-C Work Phone: Start: 12-13-2024 Adarsh operation, litholapaxy Kyrie Ouray NET DEVELOPER CONTRACT-C Work Phone: Start: 12-13-2024 Transurethral resect ion of bladder neoplasm Kyrie Ouray NET DEVELOPER CONTRACT-C Work Phone: Start: 11-07-2024 Procedure Kyrie To mpkins NET DEVELOPER [employer]-C Work Phone: Start: 10-30-2024 CT of thorax, abdome n and pelvis with contrast Kyrie Ouray NET DEVELOPER CONTRACT-C Work Phone: Start: 10-30-2024 Estimated creatinine clearance Kyrie Marta NET DEVELOPER CONTRACT-C Work Phone: Start: 08-12-2024 Urnls dip stick/tabl et reagent auto microscopy Kyrie Marta NET DEVELOPER CONTRACT-C Work Phone: Start: 08-12-2024 Serum inorganic phos phate measurement Kyrie Marta NET DEVELOPER CONTRACT-C Work Phone: Start: 07-24-2024 X-ray of chest, PA a nd lateral views Kyrie Ouray NET DEVELOPER CONTRACT-C Work Phone: Start: 07-24-2024 Estimated creatinine clearance Kyrie Marta NET DEVELOPER CONTRACT-C Work Phone: Start: 07-24-2024 Urnls dip stick/tabl et reagent auto microscopy Kyrie Marta NET DEVELOPER CONTRACT-C Work Phone: Start: 07-24-2024 Blood culture Kyrie gordon NET DEVELOPER CONTRACT-C Work Phone: Start: 07-24-2024 SARS-CoV-2, Influenz a & RSV (PCR) Kyrie Lozano NET DEVELOPER CONTRACT-C Work Phone: Start: 07-24-2024 Urine culture Kyrie gordon NET DEVELOPER CONTRACT-C Work Phone: Start: 06-17-2024 Creatinine blood Mukul Lozano NET DEVELOPER CONTRACT-C Work Phone: Start: 06-14-2024 Plain chest X-ray Bertha Lozano NET DEVELOPER CONTRACT-C Work Phone: Start: 06-14-2024 Fluoroscopic guidance Yara Lozano NET DEVELOPER CONTRACT-C Work Phone: Start: 04-23-2024 Positron emission tomography with computed tomography Kyrie Lozano NET DEVELOPER CONTRACT-C Work Phone: Start: 04-11-2024 CT of thorax, abdome n and pelvis with contrast Kyrie Lozano NET DEVELOPER CONTRACT-C Work Phone: Start: 04-04-2024 Measurement of renal function Kyrie Lozano NET DEVELOPER CONTRACT-C Work Phone: Comment on above: GFR Calc Start: 04-04-2024 Procedure Kyrie sparks NET DEVELOPER CONTRACT-C Work Phone: Plan of Treatment Date Care Activity Detail Author Start: 2030 RSV Vaccine (1 - 1-d ose 75+ series) RSV Vaccine (1 - 1-dose 75+ series) [facility] Start: 01-02-2027 Screening for malign ant neoplasm of colon [facility] Start: 12-14-2024 Exploratory laparotomy Explora tory Laparotomy (Bilateral) [facility] Start: 12-14-2024 Following clinical pathway protocol [facility] Start: 12-14-2024 Hospital admission, emergency, from emergency room, medical nature [facility] Start: 12-14-2024 [facility] Start: 12-14-2024 Bacteria identified in Blood by Culture Blood Culture [facility] Start: 12-13-2024 Ambulation without limitation [facility] Start: 12-13-2024 Medical regimen orde rs management [facility] Start: 12-13-2024 Medication education [facility] Start: 12-13-2024 End: 12-13-2024 Patient discharge [facility] Start: 12-13-2024 Taking patient vital signs [facility] Start: 12-13-2024 [facility] Start: 10-30-2024 Venous catheter care management [facility] Start: 07-24-2024 [facility] Start: 07-24-2024 End: 07-24-2024 [facility] Start: 07-24-2024 [facility] Start: 07-24-2024 Bacteria identified in Blood by Culture Blood Culture [facility] Start: 07-24-2024 Bacteria identified in Urine by Culture Urine Culture [facility] Start: 06-24-2024 Venous catheter care management [facility] Start: 06-14-2024 Anesthesia access central venous circulation ANESTH VASCULAR ACCESS [facility] Start: 06-14-2024 Insj tunneled ctr va d w/subq port age 5 yr/> INSERT TUNNELED CV CATH [facility] Start: 06-14-2024 Patient discharge [facility] Start: 05-24-2024 Patient referral [facility] Work Phone: Start: 05-10-2024 Anesthesia closed ch est w/bronchoscopy nos ANESTH CHEST PROCEDURE [facility] Start: 05-10-2024 [facility] ebus guided sampl 3/> node station/strux BRONCH EBUS SAMPLNG 3/> NODE [facility] Start: 05-10-2024 Patient discharge [facility] Start: 04-25-2024 Patient referral [facility] Work Phone: Start: 04-17-2024 Advance Directive Discussion Advance Directive Discussion [facility] Start: 12-17-2023 Covid-19 Vaccine ( season) Covid-19 Vaccine ( season) [facility] Start: 12-17-2023 Influenza vaccination Influenza Vacc ine (#1) [facility] Start: 2005 Pneumococcal Vaccine : 50+ (1 of 1 - PCV) Pneumococcal Vaccine: 50+ (1 of 1 - PCV) [facility] Start: 2005 Shingrix Vaccine (1 of 2) Shingrix Vaccine (1 of 2) [facility] Start: 2000 Diabetes Screening Diabetes Screenin g [facility] Start: 2000 Screening for malign ant neoplasm of colon [facility] Start: 1990 Lipid panel Lipid Screening [facility] Start: 1974 Urine microalbumin profile DTaP,Tdap,Td Vaccine (1 - Tdap) [facility] Start: 1973 Anxiety Screening Anxiety Screening [facility] Start: 1973 Depression Screening Depression Scre ening [facility] Start: 1973 Hepatitis C screening Hepatitis C [facility] CBC W Auto Different ial panel - Blood [facility] Comprehensive metabo lic 2000 panel - Serum or Plasma [facility] CT Abdomen and Pelvi s W contrast IV [facility] CT Abdomen and Pelvi s W contrast IV [facility] Lactate dehydrogenas e measurement [facility] [facility] Magnesium measurement [facility] Microscopic observat ion [Identifier] in Body fluid by Cyto stain [facility] Patient Education ED Fever Contr ol (Adult) [facility] Work Phone: Patient referral [facility] Work Phone: Positron emission tomography with computed tomography [facility] Serum inorganic phosphate measurement [facility] UA DIP, URINE (POC) UA DIP, URIN E (POC) Lab Routine Screening for genitourinary condition 1 Occurrences starting 06/11/2024 [facility] Work Phone: Comment on above: 1 Occurrences starti ng 06/11/2024 Urinalysis complete panel - Urine [facility] Urine culture [facility] Payers Date Payer Category Payer Private Health Insurance [place] [id number] 2024 Self-pay 2023 Medicare [id number] 2023 Unknown [id number] 2023 Unknown [id number] 2020 Medicare [id number] 1955 Unknown [id number] 2.16.840.1.207047.3.579 .2.627 1955 Unknown [id number] 2.16.840.1.737337.3.579 .2.627 1955 Unknown [id number] 2.16.840.1.819921.3.579 .2.627 1955 Unknown [id number] 2.16.840.1.646921.3.579 .2.627 Unknown [id number] 2.16.840.1.199925.3.579 .2.462 Unknown [id number] 2.16.840.1.998882.3.579 .2.462 Unknown [id number] 2.16.840.1.831729.3.579 .2.462 Unknown [id number] 2.16.840.1.294546.3.579 .2.462 Unknown [id number] 2.16.840.1.030824.3.579 .2.462 Unknown [id number] 2.16.840.1.245852.3.579 .2.462 Unknown [id number] 2.16.840.1.991726.3.579 .2.462 Unknown [id number] 2.16.840.1.489842.3.579 .2.462 Unknown [id number] 2.16.840.1.842787.3.579 .2.462 Unknown [id number] 2.16.840.1.226228.3.579 .2.462 Unknown [id number] 2.16.840.1.749045.3.579 .2.462 Unknown [id number] 2.16.840.1.383048.3.579 .2.462 Unknown [id number] 2.16.840.1.240176.3.579 .2.462 Unknown [id number] 2.16.840.1.627753.3.579 .2.462 Unknown [id number] 2.16.840.1.968370.3.579 .2.462 Unknown [id number] 2.16.840.1.845931.3.579 .2.462 Unknown [id number] 2.16.840.1.903496.3.579 .2.462 Unknown [id number] 2.16.840.1.858822.3.579 .2.462 Unknown [id number] 2.16.840.1.350474.3.579 .2.462 Unknown [id number] 2.16.840.1.171113.3.579 .2.462 Unknown [id number] 2.16.840.1.005614.3.579 .2.462 Unknown [id number] 2.16.840.1.931190.3.579 .2.462 Unknown [id number] 2.16840.1.487540.3.579 .2.462 Unknown [id number] 2.16.840.1.918825.3.579 .2.462 Unknown [id number] 2.16.840.1.008553.3.579 .2.462 Unknown [id number] 2.16.840.1.555432.3.579 .2.462 Unknown [id number] 2.16.840.1.161834.3.579 .2.462 Unknown [id number] 2.16.840.1.690290.3.579 .2.462 Unknown [id number] 2.16.840.1.404424.3.579 .2.462 Unknown [id number] 2.16.840.1.661650.3.579 .2.462 Unknown [id number] 2.16.840.1.557797.3.579 .2.462 Unknown [id number] 2.16.840.1.023055.3.579 .2.462 Unknown [id number] 2.16.840.1.008177.3.579 .2.462 Unknown [id number] 2.16.840.1.596697.3.579 .2.462 Unknown [id number] 2.16.840.1.754007.3.579 .2.462 Unknown [id number] 2.16.840.1.168503.3.579 .2.462 Unknown [id number] 2.16.840.1.884819.3.579 .2.462 Unknown [id number] 2.16.840.1.693684.3.579 .2.462 Unknown [id number] 2.16.840.1.216444.3.579 .2.462 Unknown [id number] 2.16.840.1.654520.3.579 .2.462 Social History Date Type Detail Facility Start: 05-01-2023 End: 12-14-2024 Tobacco smoking status Never smoked tobacco (finding) [facility] Sex Assigned At Sex [facility] Tobacco smoking stat [facility] Tobacco smoking consumption unknown [facility] Start: 06-11-2024 History of Social function [facility] Start: 06-11-2024 Area Deprivation Index [facility] National Score (1-10 0), lower number is lower risk 47 [facility] Start: 1955 Sex assigned at Not on file C [facility] Start: 07-24-2024 Sex Male (finding) [facility] Start: 1955 Sex Assigned At Male W [facility] Medical Equipment Procedure Code Equipment Code Equipment Origin al Text Equipment Identifier Dates Insertion, vascular access port ([id number]) Vascular port/catheter [id number] FDA Start: 06-14-2024 Goals Date Patient Goal Desired Activity /State Functional Status Date Assessment Result Facility 05-01-2023 Functional Status Up ad maxim [facility] polly [facility] 05-01-2023 Functional Status Standard Safet y ID band on, Call device within reach, Bed in low position, Wheels locked [facility] Mental Status Date Assessment Result Facility 12-13-2024 Cognitive function Voice/Name [facility] Work Phone: 07-24-2024 Cognitive function Level Of Cons ciousness Awake;Alert;Appropriate;Follow s Commands [facility] Work Phone: 06-14-2024 Cognitive function Voice/Name [facility] Work Phone: 05-10-2024 Cognitive function Level Of Consciousness Sedated [facility] Work Phone: 05-10-2024 Cognitive function Arousable To Voice/Nam e [facility] Work Phone: 05-01-2023 Mental Status Orientation Oriented x 4 [facility] Clinical Notes 05-01-2023 to 12-14-2024 Note Date & Type Note Facility 12-14-2024 History and physi faustino note [facility] 12-14-2024 Discharge summary [facility] 12-14-2024 Radiology Diagnostic study note [facility] Imaging Services [address] [place] [address] Abdomen/Pelvis W IV Cont ONLY MR#: [id number] Acct: [id number] Name: BETHANY ROJAS Rep #: [id number] 3 : 1955 M 69 From: Pet er Jaqui GARY PCP: Kyrie Lozano, NET DEVELOPER CONTRACT-C Status: REG ER Study:Abdomen/Pelvis W IV Cont ONLY Date of E xam: 12/14/24 Exam# [id number] Ordering Dr: Simba Muller MD ADDENDUM by Dr. Trey Simeon DO on 12/14/24 at 1943 Call report given to Dr. Simba Andrade at 7:30 p.m. on December 15, 2019 Also of note, urine or irrigation fluid collecting in the postoperative urinary bladder Fung catheter appears appropriately positioned. There does not appear to be any extravasation of contrast from the urinary bladder. On the prior exam from October 30 there did appear to be a small amount of extravasated contrast. Reading Location: [facility] 12/14/241943 Date cc: HARSHAL Lozano; Dr. Simba Muller MD ~* Signed PROCEDURE: Abdomen and pelvis CT with IV contrast 12/14/2024 REASON FOR EXAM: POSTOPERATIVE SUPRAPUBIC PAIN TECHNIQUE: Procedure Code: [id number] Modality: CT Procedure: ABDOMEN/PELVIS W IV CONT ONLY Coronal and Sagittal reconstruction series were provided. CONTRAST: Isovue 370 VOLUME: 75 mL One or more dose reduction techniques were used (e.g., Automated exposure control, adjustment of the mA and/or kV according to patient size, use of iterative reconstruction technique. RADIATION DOSE SUMMARY: CTDlvol: 9.97, 9.83 and 9.93 mGy DLP: 905.57 mGycm COMPARISON: CT October 31, 2019 FINDINGS: Lung bases: Trace pleural effusions tiny amount of associated atelectasis Liver: No intrinsic liver abnormality. Gallbladder: Unremarkable gallbladder. Spleen: Unremarkable. Pancreas: Normal Adrenals: Normal Kidneys: Normal Bladder: Normal as seen. Fung catheter in place. Reproductive Organs: Prostate enlarged measuring 5.2 cm Bowel: Moderate free fluid in the pelvis and a few bubbles of air around the liver indicate viscus perforation. Stomach is moderately distended with fluid and air. Perforated peptic ulcer should be least 1 consideration. However, other perforated viscus can be seen, although less frequently. Nondilated fluid-filled small bowel loops mid to distal small bowel of uncertain significance Appendix: Not clearly identified. Lymph nodes: No enlarged lymph nodes by CT criteria are appreciated Vasculature: Scattered calcific aortic plaque Peritoneum / Retroperitoneum: Free air bubbles seen anterior to the liver. Moderate free fluid is seen around the liver and spleen with large pocket in the right lateral gutter Bones: No aggressive process. CT/Abdomen/Pelvis W IV Cont ONLY IMPRESSION: Free air bubbles around the liver. Moderate to prominent amount of free fluid. Perforated viscus is suggested. Perforated peptic ulcer is the most common cause, although other instances of perforated viscus not involving the stomach and duodenum are also seen from time to time. Reading [facility] CC: HARSHAL Lozano; Dr. Simba Muller MD ~ Vp Of Product: Signed [facility] 12-14-2024 Discharge summary Note Date/Time December 14, 2024 8:42pm [facility] Medical Records Department [address] [place] [address] Emergency Department Summary 12/14/24 MR#: [id number] Acct: [id number] Name: BETHANY ROJAS Rep #:[id number] : 1955 69 From: Simba Muller MD PCP: HARSHAL Durant tus:REG [facility] Location: [facility] [place] [id number] HPI History of Present Illness Chief Complaint: Complaint Narrative Narrative: 59-year-old male past medical history of bladder carcinoma, presents with his because of suprapubic abdominal pain and decreased drainage from his Fung catheter. He and his relate history that he had surgery by Dr. Lou yesterday. He had previously been diagnosed with bladder carcinoma and necrotictumor removed back in January of last year, approximately 10 months ago. He also had a bladder stone. 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 Lou for them to remove the bladder stone after he had chemotherapy and radiation therapy. He had his states that yesterday during surgery was actually found to be a cluster of stone that was removed, and that urology had scraped the noted carotic tumor area as well. His states that he came home yesterday and prior to discharge had drank a foam couple of water, came home and drink coffee and other liquids, but has had decreased p.o. intake since then. No recent fevers or chills, no nausea or vomiting. However, overnight he only had approximately 250 mL of urine that was darker in nature in his Fung catheter bag. He states that he got sharp pain in his suprapubic area when he was in theemergency department, but his Fung catheter is not draining anything. PFSH PFSH Medical History Cancer Mediastinal lymphadenopathy Loss [...] 06/19/24 Unknown Rx tablet vomiting #30 tabs ciprofloxacin HCl 500 mg tablet 500 mg PO BID #14 tabs 12/13/24 Unknown Rx (Cipro) oxycodone 5 mg tablet 5 mg PO Q6H PRN pain 7 days #20 12/13/24 Unknown Rx tabs Allergy/AdvReac Type Severity Reaction Status Date / Time No Known Allergies Allergy Verified 12/14/24 16:27 Family History Sister Cancer Mother Cancer Surgical History History of insertion of central venous access port Hx of surgical procedure History of transurethral resection of bladder tumor (TURBT) Hx of peritonsillar abscess drainage Hx of tonsillectomy Social History Smoking Status: Never smoker alcohol intake: never substance use type: does not use seatbelt use: always do you feel safe at home: Yes ROS ROS ED ROS Narrative Review of systems positive for decreased Fung output/urination. No fevers or chills, no nausea or vomiting. Mild suprapubic discomfort. No diarrhea. EXAM Physical Exam Narrative Exam Narrative: Afebrile. Vital signs noted. Nontoxic-appearing. Cardiovascular examination feels regular rate and rhythm. Lungs are clear to auscultation bilaterally. Abdomen is soft and nontender with positive bowel sounds. No guarding or rebound. Mild suprapubic discomfort. Chaperoned examination does show Fung catheter in place, 20 Estonian, with no drainage in Fung catheter bag. Const Vital Signs: 12/14/24 16:23 12/14/24 16:27 12/14/24 17:27 Temperature 97.7 F L 98.7 F 97.8 F Temperature Source Oral Oral Oral Pulse Rate 81 70 66 Respiratory Rate 16 17 18 Blood Pressure 142/77 H 141/76 H 135/72 H Blood Pressure Mean 98 97 93 Pulse Ox 99 100 100 Oxygen Delivery Method Room Air Room Air 12/14/24 18:00 12/14/24 19:00 12/14/24 20:00 Temperature 98.1 F 98.6 F 98.3 F Temperature Source Oral Oral Oral Pulse Rate 61 80 73 Respiratory Rate 18 16 31 H Blood Pressure 151/72 H 124/80 H 139/72 H Blood Pressure Mean 98 94 94 Pulse Ox 100 98 100 Oxygen Delivery Method Room Air Room Air Room Air 12/14/24 20:15 Temperature Temperature Source Pulse Rate 70 Respiratory Rate 24 H Blood Pressure 149/74 H Blood Pressure Mean 99 Pulse Ox 99 Oxygen Delivery Method MDM MDM MDM Narrative Medical decision making narrative: Differential diagnosis includes but not limited to urinary retention versus Fung catheter problem versus displacement of Fung catheter versus decreased urine output including acute kidney failure. Per RN, patient was bladder scanned twice at 0 and 1 mL. I will obtain CBC and BMP to look at his creatinine and BUN. Fung catheter will be irrigated as well. He was bolused normal saline 1 L intravenously. I reviewed his laboratory work and he has a leukocytosis of 18.6 with hemoglobinnormal at 13.4, hematocrit 37.3. Platelet count normal at 257. BMP is significant for carbon dioxide low at 19.6, glucose elevated at 159 with a normal anion gap of 15. BUN is 45 with creatinine elevated severely at 3.92. With suspicion for bladder outlet obstruction given his elevated creatinine, RN reports that he attempted flush with 250 mL of normal saline, but was unable to draw back any fluid. Hence, I did add a lactic acid as well as blood cultures given his leukocytosis. CT of the abdomen pelvis was obtained with IV contrast. I discussed the results with Dr. Simeon with the radiology. He states that there is a moderate amount of free fluid in the pelvis as well as air bubbles around the liver whichis suggestive of perforated viscus. I asked specifically about the bladder, andhe states that the bladder appears intact currently with Fung catheter in place. There may be 250 mL of fluid without extravasation. With concern for bladder perforation, and he is postoperative day [address] Lou, I discussed the patient with urology, Dr. Lou, who is suspicious for bladder perforation and would like to take the patient to the OR to look at the bladder. He also requested Rocephin be started. 2 g were ordered. Disposition is ER to the OR. Patient is in stable condition. History & Record Review Discussion w/independent historian: Patient and Family Additional record(s) reviewed:: Prior labs Lab Data Attestation: I reviewed the patient's lab results. Labs: Laboratory Results - last 24 hr 12/14/24 17:52 WBC 18.6 H RBC 4.22 L Hgb 13.4 Hct 37.3 L MCV 88.4 MCH 31.8 MCHC 35.9 RDW Std Deviation 41.5 RDW Coeff of Lori 12.8 Plt Count 257 MPV 8.9 Immature Gran % (Auto) 0.600 Neut % (Auto) 93.5 H Lymph % (Auto) 2.4 L Mcmullen % (Auto) 3.4 Eos % (Auto) 0.0 Baso % (Auto) 0.1 Absolute Neuts (auto) 17.3 H Absolute Lymphs (auto) 0.45 L Nucleated RBC % 0 Sodium 135 Potassium 4.4 Chloride 101 Carbon Dioxide 19.6 L Anion Gap 15 BUN 45 H Creatinine 3.92 H Estim Creat Clear Calc 15.47 L Est GFR (MDRD) Non-Af 16 L BUN/Creatinine Ratio 11.6 Glucose 159 H Calcium 9.0 Radiography Diagnostic Testing: Clinical Impression(s) from Imaging Studies Abdomen/Pelvis CT 12/14/24 18:10 IMPRESSION: Free air bubbles around the liver. Moderate to prominent amount of free fluid. Perforated viscus is suggested. Perforated peptic ulcer is the most common cause, although other instances of perforated viscus not involving the stomach and duodenum are also seen from time to time. Reading [facility] Management Discussion w/another healthcare provider: [employer] (Dr. Lou, allergy) Discharge Plan Dx/Rx/DC Orders Clinical Impression: Acute kidney failure, Bladder cancer, Decreased urine output, Free fluid in pelvis Disposition Disposition: Acute Care Hospital [facility] What to do if you have Problems For any increased pain, shortness of breath, bleeding, nausea or vomiting, chestpain, or any unexpected problems, contact your Primary Care Provider. Call [facility] ([phone]) or report to the closest Emergency Room. Call 911 if necessary. 12/14/242041 <Electronically signed by Simba Muller MD> Cosigner Signature (if applicable): CC: NET DEVELOPER CONTRACT-Génesis Lozano ~ Signed [facility] Work Phone: 1(502) 357-247608-29-2025 Discharge summary Author Pankaj Lou [facility] Note Date/Time December 13, 2024 1: 03pm [facility] Medical Records Department [address] [place] [address] Instructions for Home/Discharge Instructions 12/13/24 1302 MR#: [id number] Acct: [id number] Name: BETHANY ROJAS Rep #:[id number] : 1955 69 From: Pankaj Lou [...] bag and Fung to large bag Drain: Stuart Follow Up Care Test Results: Test results from this visit will be discussed in further detail at your follow- up appointment, if applicable. Discharge Plan Admission Attending Provider: Pankaj Lou Primary Care Provider: Kyrie Lozano NP Instructions Print Language: Panamanian Discharge Orders/Prescriptions Prescriptions: No Action prochlorperazine maleate 10 mg tablet 10 mg PO Q6H PRN (Reason: nausea and vomiting) Qty: 30 2RF ondansetron 8 mg tablet,disintegrating 8 mg PO Q8H PRN (Reason: nausea and vomiting) Qty: 30 2RF lidocaine-prilocaine 2.5-2.5 % cream 1 applic topical ONCE PRN (Reason: port access) 30 Days Qty: 30 2RF Referrals / Follow Up: Kyrie Lozano NP, NET DEVELOPER CONTRACT-C [Primary Care Provider] - Disposition Disposition (needs filled in before D/C Order can be placed): Home, Self Care 12/13/24 1303<Electronically signed by Pankaj Lou MD>Pankaj Lou MD CC: NET DEVELOPER CONTRACT-C Kyrie Lozano ~ Signed [facility] Work Phone: 1(402) 407-995908-29-2025 Discharge summary Author Pankaj Lou [facility] Note Date/Time December 13, 2024 1: 03pm [facility] Medical Records Department [address] [place] [address] Instructions for Home/Discharge Instructions 12/13/24 1303 MR#: [id number] Acct: [id number] Name: BETHANY ROJAS Rep #:[id number] : 1955 69 From: Pankaj Lou [...] bag and Fung to large bag Drain: Stuart Follow Up Care Please Follow Up With: Pankaj Lou MD When: Call [phone] for an appointment Test Results: Test results from this visit will be discussed in further detail at your follow- up appointment, if applicable. Discharge Plan Admission Attending Provider: Pankaj Lou Primary Care Provider: Kyrie Lozano NP Instructions Print Language: Panamanian Discharge Orders/Prescriptions Prescriptions: No Action prochlorperazine maleate 10 mg tablet 10 mg PO Q6H PRN (Reason: nausea and vomiting) Qty: 30 2RF ondansetron 8 mg tablet,disintegrating 8 mg PO Q8H PRN (Reason: nausea and vomiting) Qty: 30 2RF lidocaine-prilocaine 2.5-2.5 % cream 1 applic topical ONCE PRN (Reason: port access) 30 Days Qty: 30 2RF Referrals / Follow Up: Kyrie Lozano NP, LYNDA-Génesis [Primary Care Provider] - Disposition Disposition (needs filled in before D/C Order can be placed): Home, Self Care 12/13/24 1303<Electronically signed by Pankaj Lou MD>Pankaj Lou MD CC: NET DEVELOPER CONTRACT-Génesis Lozano ~ Signed [facility] Work Phone: 1(468) 750-860908-29-2025 Discharge summary [facility] Medical Records Department [address] [place] [address] Instructions for Home/Discharge Instructions 12/13/24 1302 MR#: [id number] Acct: [id number] Name: BETHANY ROJAS Rep #:[id number] 5 : 1955 69 From: Pankaj Lou [...] bag and Fung to large bag Drain: Stuart Follow Up Care Test Results: Test results from this visit will be discussed in further detail at your follow- up appointment, if applicable. Discharge Plan Admission Attending Provider: Pankaj Lou Primary Care Provider: Kyrie Lozano NP Instructions Print Language: Panamanian Discharge Orders/Prescriptions Prescriptions: No Action prochlorperazine maleate 10 mg tablet 10 mg PO Q6H PRN (Reason: nausea and vomiting) Qty: 30 2RF ondansetron 8 mg tablet,disintegrating 8 mg PO Q8H PRN (Reason: nausea and vomiting) Qty: 30 2RF lidocaine-prilocaine 2.5-2.5 % cream 1 applic topical ONCE PRN (Reason: port access) 30 Days Qty: 30 2RF Referrals / Follow Up: Kyrie Lozano NP, NET DEVELOPER CONTRACT-C [Primary Care Provider] - Disposition Disposition (needs filled in before D/C Order can be placed): Home, Self Care 12/13/24 1303Pankaj Lou MD CC: NET DEVELOPER CONTRACT-C Kyrie Lozano ~ Signed [facility]08-29-2025 Discharge summary [facility] Medical Records Department [address] [place] [address] Instructions for Home/Discharge Instructions 12/13/24 1303 MR#: [id number] Acct: [id number] Name: BETHANY ROJAS Rep #:[id number] : 1955 69 From: Pankaj Lou [...] bag and Fung to large bag Drain: Stuart Follow Up Care Please Follow Up With: Pankaj Lou MD When: Call [phone] for an appointment Test Results: Test results from this visit will be discussed in further detail at your follow- up appointment, if applicable. Discharge Plan Admission Attending Provider: Pankaj Lou Primary Care Provider: Kyrie Lozano NP Instructions Print Language: Panamanian Discharge Orders/Prescriptions Prescriptions: No Action prochlorperazine maleate 10 mg tablet 10 mg PO Q6H PRN (Reason: nausea and vomiting) Qty: 30 2RF ondansetron 8 mg tablet,disintegrating 8 mg PO Q8H PRN (Reason: nausea and vomiting) Qty: 30 2RF lidocaine-prilocaine 2.5-2.5 % cream 1 applic topical ONCE PRN (Reason: port access) 30 Days Qty: 30 2RF Referrals / Follow Up: Kyrie Lozano NP NET DEVELOPER CONTRACTChris [Primary Care Provider] - Disposition Disposition (needs filled in before D/C Order can be placed): Home, Self Care 12/13/24 1303Pankaj Lou MD CC: NET DEVELOPER CONTRACTChris Lozano ~ Signed [facility]08-29-2025 Procedure note [facility] Medical Records Department [address] [facility] [place] [address] Operative Report 12/13/24 1259 MR#: [id number] Acct: [id number] Name: BETHANY ROJAS Rep #:[id number] : 1955 69 From: Pankaj Lou MD PCP: HARSHLA Durant Sta tus:REG [facility] Location: [place] [address] Operative Report (Standard) Operative Information Date of Procedure: 12/13/24 Pre-Operative Diagnosis: Invasive bladder cancer Post-Operative Diagnosis: Resection of bladder mass Surgery/Procedure Performed: Cystoscopy and laser of a large bladder stone greater than 3 cm in size, transurethral resection of a very large bladder mass greater than 5 cm in size equity trader: No Type of Anesthesia: General RN Documented Start/Stop Times: Operation Date: 12/13/24 12:25 Case Time Into Pre-Op 12/13/24 10:16 Out of Pre-Op 12/13/24 12:15 Anesthesia Start 12/13/24 12:20 Into Room 12/13/24 12:20 Procedure Start 12/13/24 12:36 Procedure End 12/13/24 12:59 Procedure Start Time: 12:36 Procedure Stop Time: 12:59 Select all DRAINS/GRAFTS/IMPLANTS that apply: Drains Drain details: 20 Estonian Fung Estimated Blood Loss: Minimal Specimen collected: [...] 12/13/24 1302 Cosigner Signature (if applicable): CC: NET DEVELOPER CONTRACTChris Lozano; Dr. Pankaj Lou MD~ Signed [facility]08-29-2025 Consult note Author Jayson Mckinney [facility] Note Date/Time December 13, 2024 10 :35am [facility] Medical Records Department [address] [place] [address] Pre-Anesthesia Evaluation 12/13/24 1035 MR#: [id number] Acct: [id number] Name: BETHANY ROJAS Rep #:[id number] : 1955 69 From: Jayson Mckinney MD PCP: Kyrie Lozano, NET DEVELOPER CONTRACTMunaC Sta tus:REG [facility] Y Race: C Location: [place] [address]- ASA Classification* ASA Classification ASA Classification: 2 [...] Procedure(s): Cysto,Litholapaxy,Laser 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 - mine wedge sawyer: 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 - mine wedge sawyer Hx Hospitalization Yes: 01/2024 POSTOP BLADDER 12/02/24 [...] take am of surgery PONV PONV - mine wedge sawyer: PONV - mine wedge sawyer Female No 12/02/24 14:16 HX of Motion [...] 11/07/24 08:26 Respiratory Assessment Respiratory Assessment - mine wedge sawyer: Respiratory Tract Infection Hx - mine wedge sawyer Hx Respiratory Tract Infection No 12/02/24 14:16 STOP Sleep Apnea STOP Sleep Apnea - mine wedge sawyer: STOP Sleep Apnea - mine wedge sawyer Hx Hypertension No 12/02/24 14:16 Hx Sleep [...] Tobacco Use History Tobacco Use History - mine wedge sawyer: Tobacco Use History - mine wedge sawyer Tobacco Use Smoking Status Never smoker 12/02/24 14:16 Hx Tobacco Use No 12/02/24 14:16 Years Smoking Packs Smoked per Day Smoking Cessation Date was within the last 15 years Hx Smoking Cessation Date Hx Smoking Cessation Counseling Hematologic Medial History Hematologic Hx - mine wedge sawyer: Hematologic Medical Hx - engineering documentation specialist Hx of Blood Transfusion No 12/02/24 14:16 [...] confused, unrespo /Reproduction History /Reproductive History - mine wedge sawyer: /Reproductive Hx- mine wedge sawyer Hx Now No 12/02/24 14:16 Gestational Age [...] and no additional complaints, except as documented. 12/13/241034 <Electronically signed by Jayson Mckinney MD> Date _ Jayson Mckinney MD Cosigner Signature: Date CC: ~ Signed [facility] Work Phone: 1(513) 263-294308-29-2025 Consult note [facility] Medical Records Department [facility] [place] [address] Pre-Anesthesia Evaluation 12/13/241034 MR#: [id number] Acct: [id number] Name: BETHANY ROJAS Rep #:[id number] : 1955 69 From: Jayson Mckinney MD PCP: ANTONIO DurantC Sta tus:REG SDC Y Race: C Location: [place] [address]-1 ASA Classification* ASA Classification ASA Classification: 2 [...] Procedure(s): Cysto,Litholapaxy,Laser 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 - mine wedge sawyer: 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 - mine wedge sawyer Hx Hospitalization Yes: 01/2024 [facility]OP [facility]ADDER 12/02/24 [...] take am of surgery PONV PONV - mine wedge sawyer: PONV - mine wedge sawyer Female No 12/02/24 14:16 HX of Motion [...] 11/07/24 08:26 Respiratory Assessment Respiratory Assessment - mine wedge sawyer: Respiratory Tract Infection Hx - mine wedge sawyer Hx Respiratory Tract Infection No 12/02/24 14:16 STOP Sleep Apnea STOP Sleep Apnea - mine wedge sawyer: STOP Sleep Apnea - mine wedge sawyer Hx Hypertension No 12/02/24 14:16 Hx Sleep [...] Tobacco Use History Tobacco Use History - mine wedge sawyer: Tobacco Use History - mine wedge sawyer Tobacco Use Smoking Status Never smoker 12/02/24 14:16 Hx Tobacco Use No 12/02/24 14:16 Years Smoking Packs Smoked per Day Smoking Cessation Date was within the last 15 years Hx Smoking Cessation Date Hx Smoking Cessation Counseling Hematologic Medial History Hematologic Hx - mine wedge sawyer: Hematologic Medical Hx - engineering documentation specialist Hx of Blood Transfusion No 12/02/24 14:16 [...] confused, unrespo /Reproduction History /Reproductive History - mine wedge sawyer: /Reproductive Hx- mine wedge sawyer Hx Now No 12/02/24 14:16 Gestational Age [...] additional complaints, except as documented. 12/13/24 1035 > Date _ Jayson Mckinney MD Cosigner Signature: Date CC: ~ Signed [facility]07-24-2025 Evaluation note* Diagnosis Onset Date Resolution Status Admit Date Bladder cancer chronic November 07, 2024 7:51am Bladder cancer chronic November 07, 2024 7:52am [facility] Work Phone: 1(724) 222-627507-24-2025 Evaluation note* Diagnosis Onset Date Resolution Status Admit Date Bladder cancer chronic November 07, 2024 7:51am Bladder cancer chronic November 07, 2024 7:52am Acute kidney failure acute 2024 8:38pm Cancer acute December 14, 025 8:38pm Decreased urine output acute Au carlos 2024 8:38pm Free fluid in pelvis acute 2024 8:38pm Bladder cancer chronic November 8:38pm [facility] Work Phone: 1(352) 676-338007-24-2025 Progress [facility] [address] [place] [address] OFFICE VISIT Date of Service: 11/07/24823 MR#: [id number] Acct: [id number] Name: BETHANY ROJAS Rep #: [id number] : 1955 From: Donny Martinez MD Age/Sex: 69/M Location[facility] Status: Signed HPI Subjective Date of Service [...] No 11/07/24 0927 D> Date _ Donny Martinez MD Cosigner Signature: Date (if applicable) CC: NET DEVELOPER CONTRACTChris Lozano ~ [facility]07-24-2025 Progress note Author Donny Martinez [facility] Note Date/Time November 07, 2024 9:27 am [facility] [place] [address] [place] [address] OFFICE VISIT Date of Service: 11/07/24823 MR#: [id number] Acct: [id number] Name: BETHANY ROJAS Rep #: [id number] : 1955 From: Donny Martinez MD Age/Sex: 69/M Location: [facility] Status: Signed HPI Subjective Date of Service [...] MD Cosigner Signature: Date (if applicable) CC: NET DEVELOPER CONTRACT-C Kyrie Lozano ~ [facility] Work Phone: 1(160) 292-681007-16-2025 Radiology Diagnostic study note [facility] Imaging Services [address] [place] [id number] Chest, Abd, Pel w/Contrast MR#: [id number] Acct: [id number] Name: BETHANY ROJAS Rep #: [id number] : 1955 M 69 From: Erlin Wilkerson MD PCP: HARSHAL Durant Status: REG CLI Study:CT Chest, Abd, Pel w/Contrast Date of E xam: 10/30/24 Exam# [id number] Ordering Dr: Mohsen Martinez MD PROCEDURE: CT [...] of the examination is unchanged. Reading Location: [facility] CC: HARSHAL Lozano; Dr. Donny Martinez MD ~ Vp Of Product: Signed [facility]04-09-2025 Radiology Diagnostic study note [facility] Imaging Services [address] [place] [address] Chest PA and Lateral MR#: [id number] Acct: [id number] Name: BETHANY ROJAS Rep #: [id number] : 1955 M 69 From: Meseret Johnson MD PCP: Kyrie Lozano NP-C Status: REG ER Study:Chest PA and Lateral Date of Exam: 07/24/24 Exam# [id number] Ordering Dr: Jayson Bartlett DO PROCEDURE: CHEST [...] NO ACUTE FINDINGS. Reading Location: [facility] CC: NET DEVELOPER CONTRACT-C Kyrie Lozano; Dr. Jayson Bartlett DO ~ Vp Of Product: Signed [facility]03-27-2025 Evaluation note* Diagnosis Onset Date Resolution Status Admit Date Bladder cancer chronic June 8:00am Mediastinal lymphadenopathy acute July 15, 2024 7:39am Bladder cancer chronic June 7:39am Bladder cancer chronic July 16, 2024 7:31am Mediastinal lymphadenopathy acute August 12, 2024 9:20am Bladder cancer chronic July 9:20am Bladder cancer chronic July 9:20am [facility] Work Phone: 1([phone]) 730-188003-27-2025 Evaluation note* Diagnosis Onset Date Resolution Status Admit Date Bladder cancer chronic June 8:00am Bladder cancer chronic June 7:39am Mediastinal lymphadenopathy chronic July 15, 2024 7:39am Bladder cancer chronic July 16, 2024 7:31am Bladder cancer chronic July 9:20am Mediastinal lymphadenopathy chronic August 12, 2024 9:20am Bladder cancer chronic July 9:20am Bladder cancer chronic November 07, 2024 7:51am Bladder cancer chronic November 07, 2024 7:52am [facility] Work Phone: 1(487) 462-112403-24-2025 Evaluation note* Diagnosis Onset Date Resolution Status Admit Date Mediastinal lymphadenopathy acute July 08, 2024 7:40am Bladder cancer chronic June 7:40am Bladder cancer chronic June 8:00am Mediastinal lymphadenopathy acute July 15, 2024 7:39am Bladder cancer chronic June 7:39am Bladder cancer chronic July 16, 2024 7:31am Mediastinal lymphadenopathy acute August 12, 2024 9:20am Bladder cancer chronic July 9:20am Bladder cancer chronic July 9:20am [facility] Work Phone: 1(335) 557-349702-28-2025 [facility]02-25-2025 History of Present illness Narrative* Alvaro Mendieta, Research Coordinator - 06/11/2024 11:40 AM ESTSummary: Research Patient was approached about his interest in IRB [id number], patient declined. [facility]25 NoteHNO ID: [id number] Author: ALVARO MENDIETA Research Coordinator Service: ? Author Type: Research Type: Progress Notes Filed: 06/12/2024 08:33 Note Text: Summary: Research Patient was approached about his interest in IRB [id number], patient declined. [facility]02-25-2025 NoteHNO ID: [id number] Author: ROEL BARRIOS MD Service: ? Author [...] PET scan highlighted areas, but biopsy by senior digital designer showed no cancer. - Conflicting opinions from oncologists regarding lung findings. - Recent blood test (Signatera) showed positive for cancer DNA; oncologist dismissed the test as worthless. 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 - Denies smoking history. 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 - Describes himself as very active, with [...] work. We also dis (more content not included)...[facility]02-25-2025 History of Present illness Narrative* Roel Barrios [...] PET scan highlighted areas, but biopsy by senior digital designer showed no cancer. - Conflicting opinions from oncologists regarding lung findings. - Recent blood test (Signatera) showed positive for cancer DNA; oncologist dismissed the test as worthless. 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 - Denies smoking history. 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 - Describes himself as very active, with [...] types of urinary diversion including ileal conduit, Dimmit Pouch andileal neobladder. The various pros and [...] had previously undergone the procedure. Mary Tejeda APRN.NURSE MIDWIFE/CLINICAL INSTRUCTOR The patient is seen and examined by Dr. Roel Barrios and the following reflects his/her service. Scribed by Kyrie Blancas I agree with the Chief Complaint, ROS, and Past Histories independently gathered by the clinical contracting support specialist including scribe and or medical student and [...] dust and various atmospheric conditions as an chief electrician. Discussed the potential impact of occupational exposures on bladder cancer risk. Roel Barrios MD, [facility] [place] [facility] documented [facility]-2025 NotePatient Outreach (UROLMN) BETHANY ROJAS ([id number]) 1955 [facility] Date Time Provider Department 06/11/24 ROEL BARRIOS During your visit today, we recorded the following information about you: Allergies As of Date: 06/11/2024 (No Known Allergies) Date Reviewed: 06/11/2024 Reviewed by: Elise Rojas OCCA - Fully Assessed Visit Diagnosis:Screening for genitourinary condition [Z13.89] Order(s):UA DIP, URINE (POC) [9942668] Order #: [id number] FUTURE Prescriptions as of 06/14/2024 - acetaminophen (TYLENOL) 325 mg cap Take by mouth. Problem List As Of Date: 06/11/2024 (None) Encounter Status:Closed by JASON EUGENE on 06/14/24[facility] 05-08-2024 [facility]12-19-2024 Evaluation note* Diagnosis Onset Date Resolution Status [...] management of vascular access device acute June 10, 7:49am Bladder cancer chronic May 192024 7:49am [...] Bladder cancer chronic July 16, 2024 7:31am [facility] Work Phone: 1(811) 314-587211-27-2024 [facility]10-16-2024 [facility]09-23-2024 Note ORIGINAL EXAMINATION: LIMITED RETROPERITONEAL ULTRASOUND01/08/2024 7:28 [...] Sign Date: 01/08/2024 12:08:29 PM Ordering Provider: [facility]09-11-2024 Note. MICRO - Microbiology PROCEDURE: Urine Culture [*1] SOURCE: Urine, Clean Catch BODY SITE: COLLECTED DATE/TIME: 12/26/2023 17:08 EDT RECEIVED DATE/TIME: 12/26/2023 18:59 EDT START DATE/TIME: 12/26/2023 18:59 EDT FREE TEXT SOURCE: FINAL REPORTS Final Report [] Verified Date/Time/Personnel: 12/27/2023 14:36 EDT <10,000 cfu/ml. No Significant growth. Sensitivity not indicated. Performing Locations *1: This test was performed at: [facility], [address] [place] [address], [address] , [facility]01-15-2024 Hospital Discharge instructions Patient Education 05/01/2023 17:34:51 [...] alternate ice and heat. You may use rrlp-srn-jrglpfh pain medicine to control pain, unless another [...] in one or both arms or legs [phone] [employer]. [address] [place] [address]. All rights reserved. This information is not intended as a substitute for professional medical care. Always follow yourhealthcare professional's instructions. Follow Up Care 05/01/2023 16:06:20 With:MITCHELL MEDRANO Address: [address] [place] [address] [place] [address]- When:2-4 days Comments:Mitchell [address] [address] With:KYRIE LOZANO APRN - NURSE MIDWIFE/CLINICAL INSTRUCTOR Address: [address] [place] [address]- When:2-[address] [facility] 01-15-2024 Note Discharge Instructions Thank you for allowing [facility] to assist you with your healthcare needs. The following is importantdischarge information regarding your hospital visit. Diagnosis from Today's Visit Neck pain Shoulder pain-swelling What to Do Next Instructions from Your Care Team No qualifying data available. Post Acute Orders No qualifying data available. You Need to Schedule the Following Appointments Follow Up with MITCHELL MEDRANO When Within 2-4 days Why: [place] [address] [address] Where: [address] [place] [address] [place] [address]- Follow Up with KYRIE LOZANO APRN - NURSE MIDWIFE/CLINICAL INSTRUCTOR When Within 2-4 days Where: [address] [place] [address]- Allergies NKA Medications Please ask your primary [...] alternate ice and heat. You may use dofg-tdt-gmpthoi pain medicine to control pain, unless another [...] in one or both arms or legs [phone] [employer] [address] [place] [address], [place] [address]. All rights reserved. This information is not intended as a substitute for professional medical care. Always follow yourhealthcare professional's instructions. Additional Information VACCINATE! IT SAVES LIVES! Members of the community who have not yet received the COVID-19 vaccine and would like to receive it can visit one of [facility] vaccine clinics. There are many vaccine clinic locations within the [facility]. For locations and available times, please visit [email or web address] It is important to note that some COVID mobile vaccine clinics are held outdoors and may be canceled in rainy or stormy conditions. To learn more about pediatric vaccinations (ages 5-11), we invite you to visit the [facility] webpage. [email or web address]/[email or web address] learn more about the COVID-19 vaccine, we invite you to visit the CDC website for a list of frequently asked questions. https://www.cdc.gov/coronavirus/2019-ncov/vaccines/faq.html [facility] Patient Portal Access Instructions: Stay connected with your healthcare team and access your personal medical information anytime with the [facility] Patient Portal. If you would like a full copy of your medical records please contact the [facility] Medical Records Department Monday through Monday between 8a.m. and 4:30p.m. Please follow the directions below to access the portal: 1.Access the email account you provided upon registration to the [facility].2.Look for an invitation email from [facility].3.Open the email and access the invitation link: Accept Invitation to [employer]4.Fill in the required butterfield to create your account. Sign into [email or web address] with your username and password that you [...] you will allow to register on the [facility] Patient Portal for access to your information. You can also access the [facility] Patient Portal on the [employer]. Simply click on Health Records under [employer] and then click on the [facility] logo. HOW TO SAFELY DISPOSE OF PRESCRIPTION [...] Call your local pharmacy or go to [email or web address] to find one close to you.3.Make use of household items: Use cat litter or old coffee grounds to dispose medications if other options arenot available. Mix your drugs with these household products, seal them in an airtight container andthrow it into the garbage. Call [facility]: [phone] to be sure your drugs can be [...] aware that I should contact my doctor. 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01-15-2024 Note ORIGINAL EXAMINATION: FIVE XRAY [...] Sign Date: 05/01/2023 5:26:40 PM [facility] No data available for this section [facility] Evaluation + Plan note Future Appointments Appointment Date:01/22/2024 03:20:00 PM Scheduled Provider:KYRIE LOZANO APRN, CNP Location:[facility] Appointment Type:PC OV Follow Up Future Scheduled Tests Laboratory* Pathology Non-Billing Specialist Request 01/09/24 Radiology* US Bladder 12/26/23 * US Renal 12/26/[address] [facility] Lighter Livingaluation + Plan note Future Appointments Appointment Date:01/22/2024 03:20:00 PM Scheduled Provider:KYRIE LOZANO MANAGER PATIENT - NURSE MIDWIFE/CLINICAL INSTRUCTOR Location:[facility] Appointment Type:PC OV Follow Up Future Scheduled Tests Laboratory* Pathology Non-Billing Specialist Request 01/09/[address] [facility] [employer]ation note* Diagnosis Malignant neoplasm of overlapping sites of bladder (HCC)- Primary Malignant neoplasm of other specified sites of bladder [facility] Diagnosis Malignant neoplasm of overlapping sites of bladder (HCC)- Primary Malignant neoplasm of other specified sites of bladder History of bladder cancer Personal history of malignant neoplasm of bladder Occupational exposure to other risk factors [facility]* Diagnosis Screening for genitourinary condition Screening for other and unspecified genitourinary condition documented in this encounter [facility] Author Pankaj Lou [facility] Note Date/Time December 14, 2024 8: 44pm [facility] Medical Records Department [address] [place] [address] History & Physical Exam 12/14/242041 MR#: [id number] Acct: [id number] Name: BETHANY ROJAS Rep #:[id number] : 1955 69 From: Pankaj Lou MD PCP: Kyrie Lozano, NET DEVELOPER CONTRACT-C Sta tus:REG SDC Location: MS3 [id number] HPI - General General Date of Service: 12/14/24 Chief Complaint: No urine output HPI Narrative BETHANY ROJAS, is a 69 M who presents to the ER he had a resection of a very large necrotic mass from his bladder and also stones that were stuck to the necrotic mass the bladder was very thin on resection so he went home with a catheter, today his called me and reported that he stopped having urine output so I told her to take him to the emergency room to flush the catheter they flushed itflushed easily no return of urine the emergency room doctor got a CAT scan I reviewed the CAT scan he is got free fluid in the pelvis this is suspicious for bladder rupture. Plan to take him back to surgery for diagnostic cystoscopy possible open exploration. PFSH Medical History Cancer Mediastinal lymphadenopathy Loss [...] 06/19/24 Unknown Rx tablet vomiting #30 tabs ciprofloxacin HCl 500 mg tablet 500 mg PO BID #14 tabs 12/13/24 Unknown Rx (Cipro) oxycodone 5 mg tablet 5 mg PO Q6H PRN pain 7 days #20 12/13/24 Unknown Rx tabs Allergy/AdvReac Type Severity Reaction Status Date / Time No Known Allergies Allergy Verified 12/14/24 16:27 Family History Sister Cancer Mother Cancer Surgical History History of insertion of central venous access port Hx of surgical procedure History of transurethral resection of bladder tumor (TURBT) Hx of peritonsillar abscess drainage Hx of tonsillectomy Social History Smoking Status: Never smoker alcohol intake: never substance use type: does not use seatbelt use: always do you feel safe at home: Yes ROS Constitutional Constitutional: Denies chills, fever(s) or malaise Eyes Eyes: Denies blurry vision or change in vision ENT HEENT: Reports none Cardiovascular Cardiovascular: Denies chest pain or palpitations Respiratory/Chest Respiratory/Chest: Denies cough or shortness of breath with exertion Gastrointestinal Gastrointestinal: Denies abdominal pain, constipation or diarrhea Musculoskeletal Musculoskeletal: Denies back pain, joint stiffness or joint swelling Integumentary Integumentary: Denies dry skin, jaundice, lesions or rash Neurologic Neurologic: Denies confusion, syncope or weakness Psychiatric Psychiatric: Reports none; Denies anxiety or depression Endocrine Endocrinology: Denies excessive sweating, fatigue or flushing Hematologic/Lymphatic Hematologic/Lymphatic: Denies anemia, easy bleeding or easy bruising Vital Signs Vital Signs Vital Signs: 12/14/24 16:23 12/14/24 16:27 12/14/24 17:27 Temperature 97.7 F L 98.7 F 97.8 F Temperature Source Oral Oral Oral Pulse Rate 81 70 66 Respiratory Rate 16 17 18 Blood Pressure 142/77 H 141/76 H 135/72 H Blood Pressure Mean 98 97 93 Pulse Ox 99 100 100 Oxygen Delivery Method Room Air Room Air 12/14/24 18:00 12/14/24 19:00 12/14/24 20:00 Temperature 98.1 F 98.6 F 98.3 F Temperature Source Oral Oral Oral Pulse Rate 61 80 73 Respiratory Rate 18 16 31 H Blood Pressure 151/72 H 124/80 H 139/72 H Blood Pressure Mean 98 94 94 Pulse Ox 100 98 100 Oxygen Delivery Method Room Air Room Air Room Air 12/14/24 20:15 Temperature Temperature Source Pulse Rate 70 Respiratory Rate 24 H Blood Pressure 149/74 H Blood Pressure Mean 99 Pulse Ox 99 Oxygen Delivery Method Weight Weight: 64.002 kg Body Mass Index (BMI) 23.4 Physical Exam Narrative Lower abdomen is tender on exam Const alert and oriented x3 General Appearance: cooperative HEENT normocephalic and head/scalp atraumatic Eyes PERRL and EOMs intact bilaterally Neck supple, no JVD and no carotid bruits Resp normal respiratory effort, normal air movement and clear to auscultation bilaterally Cardio regular rate and no murmurs GI normal to inspection, nondistended, normoactive bowel sounds and soft to palpation Extremity normal capillary refill General Extremity: no tenderness to palpation of joints or extremities; Negativefor edema Skin no rashes or lesions noted and no wounds General Skin Exam: no breakdown Neuro CN's II-XII intact bilaterally Psych affect normal Appearance: appropriate Results Lab / Micro Data 12/14/24 17:52 12/14/24 17:52 Labs: Laboratory Results - last 24 hr 12/14/24 17:52: WBC 18.6 H, RBC 4.22 L, Hgb 13.4, Hct 37.3 L, MCV 88.4, MCH 31.8, MCHC 35.9, RDW Std Deviation 41.5, RDW Coeff of Lori 12.8, Plt Count 257, MPV 8.9, Immature Gran % (Auto) 0.600, Neut % (Auto) 93.5 H, Lymph % (Auto) 2.4 L, Mcmullen % (Auto) 3.4, Eos % (Auto) 0.0, Baso % (Auto) 0.1, Absolute Neuts (auto)17.3 H, Absolute Lymphs (auto) 0.45 L, Nucleated RBC % 0, Sodium 135, Potassium 4.4, Chloride 101, Carbon Dioxide 19.6 L, Anion Gap 15, BUN 45 H, Creatinine 3.92 H, Estim Creat Clear Calc 15.47 L, Est GFR (MDRD) Non-Af 16 L, BUN/Creatinine Ratio 11.6, Glucose 159 H, Calcium 9.0 Imaging Radiology Impression Abdomen/Pelvis CT 12/14/24 18:10 IMPRESSION: Free air bubbles around the liver. Moderate to prominent amount of free fluid. Perforated viscus is suggested. Perforated peptic ulcer is the most common cause, although other instances of perforated viscus not involving the stomach and duodenum are also seen from time to time. Reading [facility] Assessment & Plan Assessment/Plan (1) Free fluid in pelvis: (2) Decreased urine output: (3) Acute kidney failure: (4) Cancer: PLAN: 69-year-old male who was found to have invasive bladder cancer he underwent radiation treatment to the bladder developed a large necrotic mass in the area was radiated this was resected yesterday I am concerned about a bladderperforation and he taken back to surgery today for diagnostic cystoscopy possible open exploration. 12/14/242043 <Electronically signed by Pankaj Lou MD> Cosigner Signature (if applicable): CC: HARSHAL Lozano; Dr. Pankaj Lou MD~ Signed [facility] [facility] Work Phone: Hospital Discharge instructions No data available for this section [facility] Progress note No data available for this section [facility] Reason for referral (narrative)No reason for referral information available[facility] Work Phone: Summary Purpose Family History Relationship Condition Age at Onset Recorded Date/T natalio sister Malignant neoplasm Unknown mother Malignant neoplasm Unknown No Family History Records Found Advance Directives Advance Directive Response Recorded Date/ Time Living Will No June 12 4:10pm Do you have a Healthcare Power of Stock Transfer Clerk? No June 12, 2024 4:10pm Advance Directives on File No July 15, 2024 9:32am Living Will No July 15, 2024 9:32am Do you have a Healthcare Power of Stock Transfer Clerk? No July 15, 2024 9:32am Advance Directives No July 15 9:32am Living Will No May 07 10:07am Do you have a Healthcare Power of Stock Transfer Clerk? No May 07, 2024 10:07am Living Will No July 24, 2024 5:22pm Do you have a Healthcare Power of Stock Transfer Clerk? No July 24, 2024 5:22pm Advance Directive Response Recorded Date/ Time Advance Directives on File No July 15, 2024 9:32am Living Will No July 15, 2024 9:32am Do you have a Healthcare Power of Stock Transfer Clerk? No July 15, 2024 9:32am Advance Directives No July 15 9:32am Living Will No July 24, 2024 5:22pm Do you have a Healthcare Power of Stock Transfer Clerk? No July 24, 2024 5:22pm Advance Directive Response Recorded Date/ Time Advance Directives on File No July 15, 2024 9:32am Living Will No July 15, 2024 9:32am Do you have a Healthcare Power of Stock Transfer Clerk? No July 15, 2024 9:32am Advance Directives No July 15 9:32am Do you have a Healthcare Power of Stock Transfer Clerk? No December 02, 2024 2:16pm Advance Directive Response Recorded Date/ Time Advance Directives on File No July 15, 2024 9:32am Living Will No July 15, 2024 9:32am Do you have a Healthcare Power of Stock Transfer Clerk? No July 15, 2024 9:32am Advance Directives No July 15 9:32am Do you have a Healthcare Power of Stock Transfer Clerk? No December 02, 2024 2:16pm Do you have a Healthcare Power of Stock Transfer Clerk? No December 14, 2024 4:57pm Chief Complaint and Reason for Visit Chief Complaint Admit Date BLADDER CANCER April 04, 2024 3:09pm BLADDER CANCER April 11, 2024 8:12am 2[facility] LABS PRIOR REVIEW CT 2024 8:21am 2[facility] NO LABS REVIEW PET April 25 4:08pm CONSULT FOR EBUS/BRONCH/BIOPSY April 172024 10:40am 3[facility] NO LABS REVIEW PATH May 21 10:38am CONSULT - BLADDER May 24, 2024 [...] July 15, 2024 7:3 9am Mediastinal lymphadenopathy March 31st, 2025 7:39am Bladder cancer July 16, 2024 7:31 [...] 2024 12:0 0pm Cysto,Litholapaxy,Laser December 13 10:13am PERFORATED BLADDER December 14, 2024 8: 38pm Reason for Visit Admit Date Bladder cancer November 07, 2024 7:51 am Bladder cancer November 07, 2024 7:52 am Acute kidney failure December 14, 2024 8 :38pm Cancer December 14, 2024 8: 38pm Decreased urine output December 14, 2024 8:38pm Free fluid in pelvis December 14, 2024 8 :38pm Bladder cancer December 14, 2024 8: 38pm Additional Source Comments Patient Care team informatio n (unrecognized section and content) Team Status: Active Member Role Status Dates Kyrie Lozano NET DEVELOPER CONTRACT, NET DEVELOPER CONTRACT-C Primary Care Provider Active Team Status: Inactive Member Role Status Dates Kyrie Lozano NET DEVELOPER CONTRACT, NET DEVELOPER CONTRACT-C Primary Care Provider Active Start: April 042023 End: April 04, 2024 Dr. Donny Martinez MD Attending Provider Active S tart: April 04, 2024 End: April 04, 2024 Dr. Pankaj Lou MD Referring Provider Active Start: April 04, 2024 End: April 04, 2024 Team Status: Inactive Member Role Status Dates Kyrie Lozano NET DEVELOPER CONTRACT, NET DEVELOPER CONTRACT-C Primary Care Provider Active Start: April 112023 End: April 11, 2024 Dr. Donny Martinez MD Attending Provider Active S tart: April 11, 2024 End: April 11, 2024 Dr. Donny Martinez MD Referring Provider Active S tart: April 11, 2024 End: April 11, 2024 Team Status: Inactive Member Role Status Dates Kyrie Lozano NET DEVELOPER CONTRACT, NET DEVELOPER CONTRACT-C Primary Care Provider Active Start: April 162023 End: 2024 Kyrie Lozano NET DEVELOPER CONTRACT, NET DEVELOPER CONTRACT-C Referring Provider Active Start: March End: 2024 Dr. Donny Martinez MD Attending Provider Active S tart: 2024 End: 2024 Team Status: Inactive Member Role Status Dates Kyrie Lozano NET DEVELOPER CONTRACT, NET DEVELOPER CONTRACT-C Primary Care Provider Active Start: April End: April 25, 2024 Kyrie Lozano NET DEVELOPER CONTRACT, NET DEVELOPER CONTRACT-C Referring Provider Active Start: April 25, 2024 End: April 25, 2024 Dr. Donny Martinez MD Attending Provider Active S tart: April 25, 2024 End: April 25, 2024 Team Status: Inactive Member Role Status Dates Kyrie Lozano NET DEVELOPER CONTRACT, NET DEVELOPER CONTRACT-C Primary Care Provider Active Start: April End: April 30, 2024 Dr. Young Samuels DO Attending Provider Active S tart: April 30, 2024 End: April 30, 2024 Dr. Donny Martinez MD Referring Provider Active S tart: April 30, 2024 End: April 30, 2024 Team Status: Inactive Member Role Status Dates Kyrie Lozano NET DEVELOPER CONTRACT, NET DEVELOPER CONTRACT-C Primary Care Provider Active Start: April End: April 30, 2024 Dr. Young Samuels DO Attending Provider Active S tart: April 30, 2024 End: April 30, 2024 Dr. Young Samuels DO Referring Provider Active S tart: April 30, 2024 End: April 30, 2024 Team Status: Active Member Role Status Dates Kyrie Lozano NET DEVELOPER CONTRACT, NET DEVELOPER CONTRACT-C Primary Care Provider Active Start: April Dr. Young Samuels , Attending Provider Active S tart: May 08, 2024 Dr. Young Samuels , Referring Provider Active S tart: May 08, 2024 Dr. Young Samuels , Other Provider Active Start : May 08, 2024 Team Status: Inactive Member Role Status Dates Kyrie Lozano NET DEVELOPER CONTRACT, NET DEVELOPER CONTRACT-C Primary Care Provider Active Start: April End: May 10, 2024 Dr. Young Samuels , Attending Provider Active S tart: May 10, 2024 End: May 10, 2024 Dr. Young Samuels , Referring Provider Active S tart: May 10, 2024 End: May 10, 2024 Team Status: Active Member Role Status Dates Kyrie Lozano NET DEVELOPER CONTRACT, NET DEVELOPER CONTRACT-C Primary Care Provider Active Start: April Dr. Young Samuels DO Attending Provider Active S tart: May 10, 2024 Dr. Young Samuels , Referring Provider Active S tart: May 10, 2024 Team Status: Inactive Member Role Status Dates Kyrie Lozano NET DEVELOPER CONTRACT, NET DEVELOPER CONTRACT-C Primary Care Provider Active Start: May End: May 21, 2024 Kyrie Lozano NET DEVELOPER CONTRACT, NET DEVELOPER CONTRACT-C Referring Provider Active Start: May 21, 2024 End: May 21, 2024 Dr. Jules Fuentes MD Attending Provider Active Start: May 21, 2024 End: May 21, 2024 Team Status: Inactive Member Role Status Dates Kyrie Lozano NET DEVELOPER CONTRACT, NET DEVELOPER CONTRACT-C Primary Care Provider Active Start: May End: May 24, 2024 Kyrie Lozano NET DEVELOPER CONTRACT, NET DEVELOPER CONTRACT-C Referring Provider Active Start: May 24, 2024 End: May 24, 2024 Dr. Mahad Villatoro , Attending Provider Active Start: May 24, 2024 End: May 24, 2024 Team Status: Inactive Member Role Status Dates Kyrie Lozano NET DEVELOPER CONTRACT, NET DEVELOPER CONTRACT-C Primary Care Provider Active Start: June 102024 End: June 10, 2024 Kyrie Lozano NET DEVELOPER CONTRACT, NET DEVELOPER CONTRACT-C Referring Provider Active Start: May End: June 10, 2024 Dr. Buddy Mccallum MD Attending Provider Active Start: June 10, 2024 End: June 10, 2024 Team Status: Inactive Member Role Status Dates Kyrie Lozano NET DEVELOPER CONTRACT, NET DEVELOPER CONTRACT-C Primary Care Provider Active Start: June 142024 End: June 14, 2024 Dr. Buddy Mccallum MD Attending Provider Active Start: June 14, 2024 End: June 14, 2024 Dr. Buddy Mccallum MD Referring Provider Active Start: June 14, 2024 End: June 14, 2024 Team Status: Active Member Role Status Dates Kyrie Lozano NET DEVELOPER CONTRACT, NET DEVELOPER CONTRACT-C Primary Care Provider Active Start: June 142024 Dr. Buddy Mccallum MD Attending Provider Active Start: June 14, 2024 Dr. Buddy Mccallum MD Referring Provider Active Start: June 14, 2024 Dr. Buddy Mccallum MD Other Provider Active Start: June 14, 2024 Team Status: Active Member Role Status Dates Kyrie Lozano NET DEVELOPER CONTRACT, NET DEVELOPER CONTRACT-C Primary Care Provider Active Start: June 17, 2024 Dr. Mahad Villatoro DO Attending Provider Active Start: June 17, 2024 Dr. Mahad Villatoro DO Referring Provider Active Start: June 17, 2024 Team Status: Inactive Member Role Status Dates Kyrie Lozano NET DEVELOPER CONTRACT, NET DEVELOPER CONTRACT-C Primary Care Provider Active Start: June 19, 2024 End: June 19, 2024 Kyrie Lozano NET DEVELOPER CONTRACT, NET DEVELOPER CONTRACT-C Referring Provider Ac tive Start: June 19, 2024 End: June 19, 2024 Shantel Norris NET DEVELOPER CONTRACT, NET DEVELOPER CONTRACT-C Attending Provider Active Start: June 19, 2024 End: June 19, 2024 Team Status: Active Member Role Status Dates Kyrie Lozano NET DEVELOPER CONTRACT, NET DEVELOPER CONTRACT-C Primary Care Provider Active Start: June 20, 2024 Dr. Mahad Villatoro DO Attending Provider Active Start: June 20, 2024 Dr. Mahad Villatoro DO Referring Provider Active Start: June 20, 2024 Team Status: Active Member Role Status Dates Kyrie Lozano NET DEVELOPER CONTRACT, NET DEVELOPER CONTRACT-C Primary Care Provider Active Start: June 21, 2024 Dr. Mahad Villatoro DO Attending Provider Active Start: June 21, 2024 Dr. Mahad Villatoro DO Referring Provider Active Start: June 21, 2024 Team Status: Inactive Member Role Status Dates Kyrie Lozano NET DEVELOPER CONTRACT, NET DEVELOPER CONTRACT-C Primary Care Provider Active Start: June 24, 2024 End: June 24, 2024 Kyrie Lozano NET DEVELOPER CONTRACT, NET DEVELOPER CONTRACT-C Referring Provider Ac tive Start: June 24, 2024 End: June 24, 2024 Dr. Donny Martinez MD Attending Provider Active S tart: June 24, 2024 End: June 24, 2024 Team Status: Active Member Role Status Dates Kyrie Lozano NET DEVELOPER CONTRACT, NET DEVELOPER CONTRACT-C Primary Care Provider Active Start: June 24, 2024 Dr. Donny Ruiz MD Attending Provider Active Start: June 24, 2024 Dr. Donny Ruiz MD Referring Provider Active Start: June 24, 2024 Team Status: Inactive Member Role Status Dates Kyrie Lozano NET DEVELOPER CONTRACT, NET DEVELOPER CONTRACT-C Primary Care Provider Active Start: June 26, 2024 End: June 26, 2024 Kyrie Lozano NET DEVELOPER CONTRACT, NET DEVELOPER CONTRACT-C Referring Provider Ac tive Start: June 26, 2024 End: June 26, 2024 Dr. Mahad Villatoro DO Attending Provider Active Start: June 26, 2024 End: June 26, 2024 Team Status: Inactive Member Role Status Dates Kyrie Lozano NET DEVELOPER CONTRACT, NET DEVELOPER CONTRACT-C Primary Care Provider Active Start: July 01, 2024 End: July 01, 2024 Kyrie Lozano NET DEVELOPER CONTRACT, NET DEVELOPER CONTRACT-C Referring Provider Ac tive Start: July 01, 2024 End: July 01, 2024 Dr. Donny Martinez MD Attending Provider Active S tart: July 01, 2024 End: July 01, 2024 Team Status: Inactive Member Role Status Dates Kyrie Lozano NET DEVELOPER CONTRACT, NET DEVELOPER CONTRACT-C Primary Care Provider Active Start: July 04, 2024 End: July 04, 2024 Kyrie Lozano NET DEVELOPER CONTRACT, NET DEVELOPER CONTRACT-C Referring Provider Ac tive Start: July 04, 2024 End: July 04, 2024 Dr. Mahad Villatoro DO Attending Provider Active Start: July 04, 2024 End: July 04, 2024 Team Status: Inactive Member Role Status Dates Kyrie Lozano NET DEVELOPER CONTRACT, NET DEVELOPER CONTRACT-C Primary Care Provider Active Start: July 08, 2024 End: July 08, 2024 Kyrie Lozano NET DEVELOPER CONTRACT, NET DEVELOPER CONTRACT-C Referring Provider Ac tive Start: July 08, 2024 End: July 08, 2024 Dr. Donny Martinez MD Attending Provider Active S tart: July 08, 2024 End: July 08, 2024 Team Status: Inactive Member Role Status Dates Kyrie Lozano NET DEVELOPER CONTRACT, NET DEVELOPER CONTRACT-C Primary Care Provider Active Start: July 11, 2024 End: July 11, 2024 Kyrie Lozano NET DEVELOPER CONTRACT, NET DEVELOPER CONTRACT-C Referring Provider Ac tive Start: July 11, 2024 End: July 11, 2024 Dr. Mahad Villatoro DO Attending Provider Active Start: July 11, 2024 End: July 11, 2024 Team Status: Inactive Member Role Status Dates Kyrie Lozano NET DEVELOPER CONTRACT, NET DEVELOPER CONTRACT-C Primary Care Provider Active Start: July 15, 2024 End: July 15, 2024 Kyrie Lozano NET DEVELOPER CONTRACT, NET DEVELOPER CONTRACT-C Referring Provider Ac tive Start: July 15, 2024 End: July 15, 2024 Dr. Donny Martinez MD Attending Provider Active S tart: July 15, 2024 End: July 15, 2024 Team Status: Inactive Member Role Status Dates Kyrie Lozano NET DEVELOPER CONTRACT, NET DEVELOPER CONTRACT-C Primary Care Provider Active Start: July 16, 2024 End: July 16, 2024 Kyrie Lozano NET DEVELOPER CONTRACT, NET DEVELOPER CONTRACT-C Referring Provider Ac tive Start: July 16, 2024 End: July 16, 2024 Dr. Mahad Villatoro DO Attending Provider Active Start: July 16, 2024 End: July 16, 2024 Team Status: Active Member Role Status Dates Kyrie Lozano NET DEVELOPER CONTRACT, NET DEVELOPER CONTRACT-C Primary Care Provider Active Start: July 16, 2024 Dr. Donny Martinez MD Attending Provider Active S tart: July 16, 2024 Dr. Donny Martinez MD Referring Provider Active S tart: July 16, 2024 Team Status: Active Member Role Status Dates Kyrie Lozano NET DEVELOPER CONTRACT, NET DEVELOPER CONTRACT-C Primary Care Provider Active Start: July 16, 2024 Dr. Mahad Villatoro DO Attending Provider Active Start: July 16, 2024 Team Status: Inactive Member Role Status Dates Kyrie Lozano NET DEVELOPER CONTRACT, NET DEVELOPER CONTRACT-C Primary Care Provider Active Start: July 24, 2024 End: July 24, 2024 Dr. Jayson Bartlett DO Emergency Provider Active Start: July 24, 2024 End: July 24, 2024 Team Status: Active Member Role/Relationship Status Dates Kyrie Lozano NET DEVELOPER CONTRACT, NET DEVELOPER CONTRACT-C Primary Care Provider Active Team Status: Inactive Member Role/Relationship Status Dates Kyrie Lozano NET DEVELOPER CONTRACT, NET DEVELOPER CONTRACT-C Primary Care Provider Active Start: July 08, 2024 End: July 08, 2024 Kyrie Lozano NET DEVELOPER CONTRACT, NET DEVELOPER CONTRACT-C Referring Provider Ac tive Start: July 08, 2024 End: July 08, 2024 Dr. Donny Martinez MD Attending Provider Active S tart: July 08, 2024 End: July 08, 2024 Team Status: Inactive Member Role/Relationship Status Dates Kyrie Lozano NET DEVELOPER CONTRACT, NET DEVELOPER CONTRACT-C Primary Care Provider Active Start: July 11, 2024 End: July 11, 2024 Dr. Mahad Villatoro DO Attending Provider Active Start: July 11, 2024 End: July 11, 2024 Dr. Mahad Villatoro DO Referring Provider Active Start: July 11, 2024 End: July 11, 2024 Team Status: Inactive Member Role/Relationship Status Dates Kryie Lozano NET DEVELOPER CONTRACT, NET DEVELOPER CONTRACT-C Primary Care Provider Active Start: July 15, 2024 End: July 15, 2024 Kyrie Lozano NET DEVELOPER CONTRACT, NET DEVELOPER CONTRACT-C Referring Provider Ac tive Start: July 15, 2024 End: July 15, 2024 Dr. Donny Martinez MD Attending Provider Active S tart: July 15, 2024 End: July 15, 2024 Team Status: Inactive Member Role/Relationship Status Dates Kyrie Lozano NET DEVELOPER CONTRACT, NET DEVELOPER CONTRACT-C Primary Care Provider Active Start: July 16, 2024 End: July 16, 2024 Dr. Mahad Villatoro DO Attending Provider Active Start: July 16, 2024 End: July 16, 2024 Dr. Mahad Villatoro DO Referring Provider Active Start: July 16, 2024 End: July 16, 2024 Team Status: Active Member Role/Relationship Status Dates Kyrie Lozano NET DEVELOPER CONTRACT, NET DEVELOPER CONTRACT-C Primary Care Provider Active Start: July 16, 2024 Dr. Mahad Villatoro DO Attending Provider Active Start: July 16, 2024 Team Status: Inactive Member Role/Relationship Status Dates Kyrie Lozano NET DEVELOPER CONTRACT, NET DEVELOPER CONTRACT-C Primary Care Provider Active Start: July 24, 2024 End: July 24, 2024 Dr. Jayson Bartlett DO Attending Provider Active Start: July 24, 2024 End: July 24, 2024 Dr. Jayson Bartlett DO Emergency Provider Active Start: July 24, 2024 End: July 24, 2024 Team Status: Inactive Member Role/Relationship Status Dates Kyrie Lozano NET DEVELOPER CONTRACT, NET DEVELOPER CONTRACT-C Primary Care Provider Active Start: August 12, 2024 End: August 12, 2024 Kyrie Lozano NET DEVELOPER CONTRACT, NET DEVELOPER CONTRACT-C Referring Provider Ac tive Start: August 12, 2024 End: August 12, 2024 Dr. Mahad Villatoro DO Attending Provider Active Start: August 12, 2024 End: August 12, 2024 Team Status: Active Member Role/Relationship Status Dates Kyrie Lozano NET DEVELOPER CONTRACT, NET DEVELOPER CONTRACT-C Primary Care Provider Active Start: October 30, 2024 Dr. Donny Martinez MD Attending Provider Active S tart: October 30, 2024 Dr. Donny Martinez MD Referring Provider Active S tart: October 30, 2024 Team Status: Inactive Member Role/Relationship Status Dates Kyrie Lozano NET DEVELOPER CONTRACT, NET DEVELOPER CONTRACT-C Primary Care Provider Active Start: October 30, 2024 End: October 30, 2024 Dr. Donny Martinez MD Attending Provider Active S tart: October 30, 2024 End: October 30, 2024 Dr. Donny Martinez MD Referring Provider Active S tart: October 30, 2024 End: October 30, 2024 Team Status: Inactive Member Role/Relationship Status Dates Kyrie Lozano NET DEVELOPER CONTRACT, NET DEVELOPER CONTRACT-C Primary Care Provider Active Start: July 11, 2024 End: July 11, 2024 Dr. Mahad Villatoro DO Attending Provider Active Start: July 11, 2024 End: July 11, 2024 Dr. Mahad Villatoro DO Referring Provider Active Start: July 11, 2024 End: July 11, 2024 Team Status: Inactive Member Role/Relationship Status Dates Kyrie Lozano NET DEVELOPER CONTRACT, NET DEVELOPER CONTRACT-C Primary Care Provider Active Start: July 15, 2024 End: July 15, 2024 Kyrie Lozano NET DEVELOPER CONTRACT, NET DEVELOPER CONTRACT-C Referring Provider Ac tive Start: July 15, 2024 End: July 15, 2024 Dr. Donny Martinez MD Attending Provider Active S tart: July 15, 2024 End: July 15, 2024 Team Status: Inactive Member Role/Relationship Status Dates Kyrie Lozano NET DEVELOPER CONTRACT, NET DEVELOPER CONTRACT-C Primary Care Provider Active Start: July 16, 2024 End: July 16, 2024 Dr. Mahad Villatoro DO Attending Provider Active Start: July 16, 2024 End: July 16, 2024 Dr. Mahad Villatoro DO Referring Provider Active Start: July 16, 2024 End: July 16, 2024 Team Status: Active Member Role/Relationship Status Dates Kyrie Lozano NET DEVELOPER CONTRACT, NET DEVELOPER CONTRACT-C Primary Care Provider Active Start: July 16, 2024 Dr. Mahad Villatoro DO Attending Provider Active Start: July 16, 2024 Team Status: Inactive Member Role/Relationship Status Dates Kyrie Lozano NET DEVELOPER CONTRACT, NET DEVELOPER CONTRACT-C Primary Care Provider Active Start: July 24, 2024 End: July 24, 2024 Dr. Jayson Bartlett DO Attending Provider Active Start: July 24, 2024 End: July 24, 2024 Dr. Jayson Bartlett DO Emergency Provider Active Start: July 24, 2024 End: July 24, 2024 Team Status: Inactive Member Role/Relationship Status Dates Kyrie Lozano NET DEVELOPER CONTRACT, NET DEVELOPER CONTRACT-C Primary Care Provider Active Start: August 12, 2024 End: August 12, 2024 Kyrie Lozano NET DEVELOPER CONTRACT, NET DEVELOPER CONTRACT-C Referring Provider Ac tive Start: August 12, 2024 End: August 12, 2024 Dr. Mahad Villatoro DO Attending Provider Active Start: August 12, 2024 End: August 12, 2024 Team Status: Active Member Role/Relationship Status Dates Kyrie Lozano NET DEVELOPER CONTRACT, NET DEVELOPER CONTRACT-C Primary Care Provider Active Start: October 30, 2024 Dr. Donny Martinez MD Attending Provider Active S tart: October 30, 2024 Dr. Donny Martinez MD Referring Provider Active S tart: October 30, 2024 Team Status: Inactive Member Role/Relationship Status Dates Kyrie Lozano NET DEVELOPER CONTRACT, NET DEVELOPER CONTRACT-C Primary Care Provider Active Start: October 30, 2024 End: October 30, 2024 Dr. Donny Martinez MD Attending Provider Active S tart: October 30, 2024 End: October 30, 2024 Dr. Donny Martinez MD Referring Provider Active S tart: October 30, 2024 End: October 30, 2024 Team Status: Inactive Member Role/Relationship Status Dates Kyrie Lozano NET DEVELOPER CONTRACT, NET DEVELOPER CONTRACT-C Primary Care Provider Active Start: November 07, 2024 End: November 07, 2024 Kyrie Lozano NET DEVELOPER CONTRACT, NET DEVELOPER CONTRACT-C Referring Provider Ac tive Start: November 07, 2024 End: November 07, 2024 Dr. Mahad Villatoro DO Attending Provider Active Start: November 07, 2024 End: November 07, 2024 Team Status: Active Member Role/Relationship Status Dates Kyrie Lozano NET DEVELOPER CONTRACT, NET DEVELOPER CONTRACT-C Primary Care Provider Active Start: November 07, 2024 Kyrie Lozano NET DEVELOPER CONTRACT, NET DEVELOPER CONTRACT-C Referring Provider Ac tive Start: November 07, 2024 Dr. Donny Martinez MD Attending Provider Active S tart: November 07, 2024 Team Status: Inactive Member Role/Relationship Status Dates Kyrie Lozano NET DEVELOPER CONTRACT, NET DEVELOPER CONTRACT-C Primary Care Provider Active Start: October 30, 2024 End: October 30, 2024 Dr. Donny Martinez MD Attending Provider Active S tart: October 30, 2024 End: October 30, 2024 Dr. Donny Martinez MD Referring Provider Active S tart: October 30, 2024 End: October 30, 2024 Team Status: Inactive Member Role/Relationship Status Dates Kyrie Lozano NET DEVELOPER CONTRACT, NET DEVELOPER CONTRACT-C Primary Care Provider Active Start: November 07, 2024 End: November 07, 2024 Kyrie Lozano NET DEVELOPER CONTRACT, NET DEVELOPER CONTRACT-C Referring Provider Ac tive Start: November 07, 2024 End: November 07, 2024 Dr. Mahad Villatoro DO Attending Provider Active Start: November 07, 2024 End: November 07, 2024 Team Status: Inactive Member Role/Relationship Status Dates Kyrie Lozano NET DEVELOPER CONTRACT, NET DEVELOPER CONTRACT-C Primary Care Provider Active Start: November 07, 2024 End: November 07, 2024 Kyrie Lozano NET DEVELOPER CONTRACT, NET DEVELOPER CONTRACT-C Referring Provider Ac tive Start: November 07, 2024 End: November 07, 2024 Dr. Donny Martinez MD Attending Provider Active S tart: November 07, 2024 End: November 07, 2024 Team Status: Inactive Member Role/Relationship Status Dates Kyrie Lozano NET DEVELOPER CONTRACT, NET DEVELOPER CONTRACT-C Primary Care Provider Active Start: October 30, 2024 End: October 30, 2024 Dr. Donny Martinez MD Attending Provider Active S tart: October 30, 2024 End: October 30, 2024 Dr. Donny Martinez MD Referring Provider Active S tart: October 30, 2024 End: October 30, 2024 Team Status: Inactive Member Role/Relationship Status Dates Kyrie Lozano NET DEVELOPER CONTRACT, NET DEVELOPER CONTRACT-C Primary Care Provider Active Start: November 07, 2024 End: November 07, 2024 Kyrie Lozano NET DEVELOPER CONTRACT, NET DEVELOPER CONTRACT-C Referring Provider Ac tive Start: November 07, 2024 End: November 07, 2024 Dr. Mahad Villatoro DO Attending Provider Active Start: November 07, 2024 End: November 07, 2024 Team Status: Inactive Member Role/Relationship Status Dates Kyrie Lozano NET DEVELOPER CONTRACT, NET DEVELOPER CONTRACT-C Primary Care Provider Active Start: November 07, 2024 End: November 07, 2024 Kyrie Lozano NET DEVELOPER CONTRACT, NET DEVELOPER CONTRACT-C Referring Provider Ac tive Start: November 07, 2024 End: November 07, 2024 Dr. Donny Martinez MD Attending Provider Active S tart: November 07, 2024 End: November 07, 2024 Team Status: Active Member Role/Relationship Status Dates Kyrie Lozano NET DEVELOPER CONTRACT, NET DEVELOPER CONTRACT-C Primary Care Provider Active Start: November 07, 2024 Dr. Donny Martinez MD Attending Provider Active S tart: November 07, 2024 Dr. Donny Martinez MD Referring Provider Active S tart: November 07, 2024 Team Status: Inactive Member Role/Relationship Status Dates Kyrie Lozano NET DEVELOPER CONTRACT, NET DEVELOPER CONTRACT-C Primary Care Provider Active Start: November End: December 13, 2024 Dr. Pankaj Lou MD Attending Provider Active Start: December 13, 2024 End: December 13, 2024 Dr. Pankaj Lou MD Referring Provider Active Start: December 13, 2024 End: December 13, 2024 Team Status: Active Member Role/Relationship Status Dates Kyrie Lozano NET DEVELOPER CONTRACT, NET DEVELOPER CONTRACT-C Primary Care Provider Active Start: November Simba Mullre MD Emergency Provider Active Star t: December 14, 2024 Dr. Pankaj Lou MD Attending Provider Active Start: December 14, 2024 Dr. Pankaj Lou MD Referring Provider Active Start: December 14, 2024 (unrecognized sect ion and content) No Status Records FoundNo Status Records FoundNo Status Records FoundNo Status Records Found INFORMATION SOURCE (unrecogn ized section and content) DATE CREATED AUTHOR 10/15/2023 [facility] ([place]) DATE CREATED AUTHOR AUTHOR'S ORGANIZ ATION 02/10/2024 [facility] DATE CREATED AUTHOR AUTHOR'S ORGANIZ ATION 06/15/2024 [facility] DATE CREATED AUTHOR AUTHOR'S ORGANIZ ATION 12/13/2024 [facility] Source Comments (unrecognize d section and content) In the event this informatio n is protected by the Federal Confidentiality of Alcohol and Drug Abuse Patient Records regulations: The Federal rules restrict any use of the information to criminally investigate or prosecute any alcohol or drug abuse patient.[facility] the event this information is protected by the Federal Confidentiality of Alcohol and Drug Abuse Patient Records regulations: The Federal rules restrict any use of the information to criminally investigate or prosecute any alcohol or drug abuse patient.[facility] Hospital[facility] the event this information is protected by the Federal Confidentiality of Alcohol and Drug Abuse Patient Records regulations: The Federal rules restrict any use of the information to criminally investigate or prosecute any alcohol or drug abuse patient.[facility] Reason for Visit (unrecogniz ed section [...] BE BASED ON THE PRIMARY CLINICAL RECORDS. [employer] [facility]. provides no warranty or guarantee of the accuracy or completeness of information in this document.
[2024-12-15] VITALS (8 sets, daily range): BP systolic 112–147; BP diastolic 62–72; PULSE 66–100; RESP 16–18; TEMP 36.4–36.9; O2SAT 97–100; BMI 24.1
[2024-12-15] MEDS: Lactated Ringers 1,000 ML 125 ML IV ×3 (00:20→17:01)
[2024-12-15 06:23] LABS: Hematocrit 32.2 % (40-54); Hemoglobin 11.5 g/dL (13.0-16.5); Immature Granulocytes Count 0.050 X10^3/uL (0.0-0.0); Mean Corp Hgb Conc 35.7 g/dL (32-36); Mean Corpuscular Volume 89.7 fL (80-94); Mean Platelet Vol. 9.2 fl (6.2-12.0); NRBC Flagged by Analyzer 0 % (0-5); POSITIVE DIFFERENTIAL YES; Platelet Count 225 K/mm3 (150-450); RBC Distribution Width CV 13.0 % (11.6-14.6); RBC Distribution Width SD 42.8 fl (35.1-43.9); Red Blood Count 3.59 M/mm3 (4.6-6.2); White Blood Count 10.6 K/mm3 (4.4-11.0)
[2024-12-15 06:49] LABS: Anion Gap 10 (5-15); BUN 33 mg/dL (4-19); BUN/Creat Ratio 14.9 RATIO (10-20); Calcium,Total 8.4 mg/dL (7.6-11.0); Carbon Dioxide 20.9 mmol/L (21.0-32.0); Chloride 106 mmol/L (98-108); Estimated Creatinine Clearance 27.82 ml/min (50-250); Glucose 114 mg/dL (70-99); Potassium 4.4 mmol/L (3.3-5.1)
--- NOTE | 2024-12-15 09:10 | PCM.PN.GU ---
Subjective Subjective s/p exploration and repair of bladder rupture doing well, labs look better, Cr down good urine output minimal JORDYN out adv full liquid diet iv antibiotics hydrationl. Objective Data Objective Data Vital Signs: Vital Signs Temp Pulse Resp BP Pulse Ox O2 Del Method 98.0 F 67 16 113/63 100 Room Air 12/15/24 07:42 12/15/24 07:42 12/15/24 07:42 12/15/24 07:42 12/15/24 07:42 12/15/24 07:42 Oxygen Delivery Method Room Air Weight: 65.771 kg Body Mass Index (BMI) 24.1 Intake & Output: Intake and Output for Last 24 Hours 12/13/24 12/14/24 12/15/24 23:59 23:59 23:59 Intake Total 1050 / 1050 925 / 925 Output Total 680 / 680 Balance 1030 / 1000 245 / 245 Lab / Micro Data 12/15/24 05:18 12/15/24 05:18 Labs: Laboratory Results - last 24 hr 12/14/24 17:52: WBC 18.6 H, RBC 4.22 L, Hgb 13.4, Hct 37.3 L, MCV 88.4, MCH 31.8, MCHC 35.9, RDW Std Deviation 41.5, RDW Coeff of Lori 12.8, Plt Count 257, MPV 8.9, Immature Gran % (Auto) 0.600, Neut % (Auto) 93.5 H, Lymph % (Auto) 2.4 L, Branch % (Auto) 3.4, Eos % (Auto) 0.0, Baso % (Auto) 0.1, Absolute Neuts (auto) 17.3 H, Absolute Lymphs (auto) 0.45 L, Nucleated RBC % 0, Sodium 135, Potassium 4.4, Chloride 101, Carbon Dioxide 19.6 L, Anion Gap 15, BUN 45 H, Creatinine 3.92 H, Estim Creat Clear Calc 15.47 L, Est GFR (MDRD) Non-Af 16 L, BUN/Creatinine Ratio 11.6, Glucose 159 H, Calcium 9.0 12/14/24 20:18: Lactic Acid 1.7 12/15/24 05:18: WBC 10.6, RBC 3.59 L, Hgb 11.5 L, Hct 32.2 L, MCV 89.7, MCH 32.0, MCHC 35.7, RDW Std Deviation 42.8, RDW Coeff of Lori 13.0, Plt Count 225, MPV 9.2, Immature Gran % (Auto) 0.500, Neut % (Auto) 88.4 H, Lymph % (Auto) 4.9 L, Branch % (Auto) 6.0, Eos % (Auto) 0.1, Baso % (Auto) 0.1, Absolute Neuts (auto) 9.4 H, Absolute Lymphs (auto) 0.52 L, Nucleated RBC % 0, Sodium 136, Potassium 4.4, Chloride 106, Carbon Dioxide 20.9 L, Anion Gap 10, BUN 33 H, Creatinine 2.18 H, Estim Creat Clear Calc 27.82 L, Est GFR (MDRD) Non-Af 32 L, BUN/Creatinine Ratio 14.9, Glucose 114 H, Calcium 8.4 Radiography Diagnostic Testing: Radiology Impression Abdomen/Pelvis CT 12/14/24 18:10 IMPRESSION: Free air bubbles around the liver. Moderate to prominent amount of free fluid. Perforated viscus is suggested. Perforated peptic ulcer is the most common cause, although other instances of perforated viscus not involving the stomach and duodenum are also seen from time to time. Reading [facility]
[2024-12-15] MEDS: 0.9% Saline Lock 10 ML Syringe IV (11:45)
[2024-12-15] MEDS: HYDROcodone Bitartrate/Apap 5/325 Tablet PO (13:48)
[2024-12-16] MEDS: Lactated Ringers 1,000 ML 125 ML IV ×2 (03:26→08:55)
[2024-12-16 04:51] VITALS: BP 153/74; PULSE 63; RESP 16; TEMP 36.6; O2SAT 97
[2024-12-16 05:52] LABS: Hematocrit 32.5 % (40-54); Hemoglobin 11.2 g/dL (13.0-16.5); Immature Granulocytes Count 0.040 X10^3/uL (0.0-0.0); Mean Corp Hgb Conc 34.5 g/dL (32-36); Mean Corpuscular Volume 90.8 fL (80-94); Mean Platelet Vol. 9.0 fl (6.2-12.0); NRBC Flagged by Analyzer 0 % (0-5); POSITIVE DIFFERENTIAL YES; Platelet Count 204 K/mm3 (150-450); RBC Distribution Width CV 12.9 % (11.6-14.6); RBC Distribution Width SD 43.2 fl (35.1-43.9); Red Blood Count 3.58 M/mm3 (4.6-6.2); White Blood Count 6.3 K/mm3 (4.4-11.0)
[2024-12-16 06:55] LABS: Anion Gap 10 (5-15); BUN 17 mg/dL (4-19); BUN/Creat Ratio 18.6 RATIO (10-20); Calcium,Total 8.9 mg/dL (7.6-11.0); Carbon Dioxide 22.2 mmol/L (21.0-32.0); Chloride 107 mmol/L (98-108); Estimated Creatinine Clearance 68.14 ml/min (50-250); Glucose 105 mg/dL (70-99); Potassium 4.3 mmol/L (3.3-5.1)
[2024-12-16] MEDS: HYDROcodone Bitartrate/Apap 5/325 Tablet PO (09:02)
[2024-12-16 09:07] VITALS: BP 130/70; PULSE 67; RESP 18; TEMP 36.3; O2SAT 98
[2024-12-16 15:36] VITALS: BP 125/77; PULSE 66; RESP 16; TEMP 36.3; O2SAT 98
[2024-12-16 15:37] VITALS: PULSE 60
[2024-12-16 22:00] VITALS: BP 135/76; PULSE 67; RESP 16; TEMP 36.8; O2SAT 100
[2024-12-17 04:53] VITALS: BP 135/75; PULSE 68; RESP 16; TEMP 36.6; O2SAT 100
[2024-12-17 05:52] LABS: Hematocrit 33.7 % (40-54); Hemoglobin 11.7 g/dL (13.0-16.5); Immature Granulocytes Count 0.060 X10^3/uL (0.0-0.0); Mean Corp Hgb Conc 34.7 g/dL (32-36); Mean Corpuscular Volume 89.6 fL (80-94); Mean Platelet Vol. 8.9 fl (6.2-12.0); NRBC Flagged by Analyzer 0 % (0-5); POSITIVE DIFFERENTIAL YES; Platelet Count 205 K/mm3 (150-450); RBC Distribution Width CV 12.5 % (11.6-14.6); RBC Distribution Width SD 41.3 fl (35.1-43.9); Red Blood Count 3.76 M/mm3 (4.6-6.2); White Blood Count 6.2 K/mm3 (4.4-11.0)
[2024-12-17 06:17] LABS: Anion Gap 9 (5-15); BUN 14 mg/dL (4-19); BUN/Creat Ratio 17.5 RATIO (10-20); Calcium,Total 9.0 mg/dL (7.6-11.0); Carbon Dioxide 23.7 mmol/L (21.0-32.0); Chloride 107 mmol/L (98-108); Estimated Creatinine Clearance 73.96 ml/min (50-250); Glucose 114 mg/dL (70-99); Potassium 4.0 mmol/L (3.3-5.1)
--- NOTE | 2024-12-17 07:23 | DS.PCM_ITS ---
Providers Date of Admission: 12/14/24 Date of Discharge: 12/17/24 Primary Care Physician: Seth Lozano, METAL MINE INSPECTOR-C Reason For Visit: PERFORATED BLADDER, BLADDER CANCER Diagnosis Discharge Diagnosis (1) Free fluid in pelvis: Status: Acute Code(s): R18.8 - Other ascites (2) Decreased urine output: Status: Acute Code(s): R34 - Anuria and oliguria (3) Acute kidney failure: Status: Acute Code(s): N17.9 - Acute kidney failure, unspecified (4) Cancer: Status: Acute Code(s): C80.1 - Malignant (primary) neoplasm, unspecified Plan: 69-year-old male who was found to have invasive bladder cancer he underwent radiation treatment to the bladder developed a large necrotic mass in the area was radiated this was resected yesterday I am concerned about a bladder perforation and he taken back to surgery today for diagnostic cystoscopy possible open exploration. Medications at Discharge Home Medications lidocaine-prilocaine 2.5 %-2.5 % topical cream 1 applic topical ONCE PRN port access 30 days #30 grams 06/19/24 ondansetron 8 mg disintegrating tablet 8 mg PO Q8H PRN nausea and vomiting #30 tabs 06/19/24 prochlorperazine maleate 10 mg tablet 10 mg PO Q6H PRN nausea and vomiting #30 tabs 06/19/24 ciprofloxacin HCl 500 mg tablet (Cipro) 500 mg PO BID #14 tabs 12/13/24 oxycodone 5 mg tablet 5 mg PO Q6H PRN pain 7 days #20 tabs 12/13/24 Hospital Course Operations - (repair of bladder rupture) Summary of Care Provided Hospital Course: patient returned to hospital after TURBT, ct scan with free fluid, no urine output shawn. for bladder ruputer, bladder thinned out from turbt and also had radiaton therapy which weakend the bladder wall. Take to surgery for ex lap, found bladder ruptured and repaired in two layers, post op did well. home with 2 weeks JORDYN drain removed. home with antibiotics and pain meds. reg diet Physical Exam Const alert and oriented x3 General Appearance: cooperative HEENT normocephalic and head/scalp atraumatic Eyes PERRL and EOMs intact bilaterally Neck supple, no JVD and no carotid bruits Resp normal respiratory effort, normal air movement and clear to auscultation bilaterally Cardio regular rate and no murmurs GI normal to inspection, nondistended, normoactive bowel sounds and soft to palpation Extremity normal capillary refill General Extremity: no tenderness to palpation of joints or extremities; Negative for edema Skin no rashes or lesions noted and no wounds General Skin Exam: no breakdown Neuro CN's II-XII intact bilaterally Psych affect normal Appearance: appropriate Weight / BMI Weight Weight: 65.771 kg Body Mass Index (BMI) 24.1 ABG / Lab / Microbiology Data 12/17/24 05:40 12/17/24 05:40 Laboratory: Laboratory Results - last 24 hr 12/17/24 05:40: WBC 6.2, RBC 3.76 L, Hgb 11.7 L, Hct 33.7 L, MCV 89.6, MCH 31.1, MCHC 34.7, RDW Std Deviation 41.3, RDW Coeff of Lori 12.5, Plt Count 205, MPV 8.9, Immature Gran % (Auto) 1.000 H, Neut % (Auto) 80.3 H, Lymph % (Auto) 8.4 L, Walker % (Auto) 6.6, Eos % (Auto) 3.4, Baso % (Auto) 0.3, Absolute Neuts (auto) 5.0, Absolute Lymphs (auto) 0.52 L, Nucleated RBC % 0, Sodium 139, Potassium 4.0, Chloride 107, Carbon Dioxide 23.7, Anion Gap 9, BUN 14, Creatinine 0.82, Estim Creat Clear Calc 73.96, Est GFR (MDRD) Non-Af 95, BUN/Creatinine Ratio 17.5, Glucose 114 H, Calcium 9.0 D/C Instructions Discharge Activity: May Not Drive Weight Bearing Status: Weight bearing as tolerated Call your doctor if you observe: Fever of 101 or Higher, Inability to have a bowel movement and Uncontrolled pain Cleanse incision/area with: Soap & Water Catheter: Fung to leg bag and Fung to large bag Drain: [place] DC O2, CPAP, BIPAP Needs Home O2 Discharge instructions: No DC home with Oxygen: No Meaningful Use Info Meaningful Use Meaningful Use Diagnoses (Choose all that apply): None applicable Discharge Plan Admission Admit Date/Time: 12/14/24 23:11 Attending Provider: Pankaj Lou Primary Care Provider: Seth Lozano NP Discharge Orders/Prescriptions Prescriptions: No Action prochlorperazine maleate 10 mg tablet 10 mg PO Q6H PRN (Reason: nausea and vomiting) Qty: 30 2RF ondansetron 8 mg tablet,disintegrating 8 mg PO Q8H PRN (Reason: nausea and vomiting) Qty: 30 2RF lidocaine-prilocaine 2.5-2.5 % cream 1 applic topical ONCE PRN (Reason: port access) 30 Days Qty: 30 2RF ciprofloxacin HCl [Cipro] 500 mg tablet 500 mg PO BID Qty: 14 0RF oxycodone 5 mg tablet 5 mg PO Q6H PRN (Reason: pain) 7 Days Qty: 20 0RF Referrals / Follow Up: Seth Lozano NP, METAL MINE INSPECTOR-C [Primary Care Provider] -
--- NOTE | 2024-12-17 07:26 | EX.PCM.DISCH ---
Discharge Instructions Procedure Urology Diet Discharge Diet: No restrictions Activity Discharge Activity: Return to Normal Activity and May Not Drive (while taking narcotic pain medications.) Weight Bearing Status: Weight bearing as tolerated Dressing / Incision Call your doctor if you observe: Fever of 101 or Higher, Inability to have a bowel movement and Uncontrolled pain Cleanse incision/area with: Soap & Water Catheter: Fung to leg bag and Fung to large bag Drain: [place] Follow Up Care Please Follow Up With: Pankaj Lou MD When: Call [phone] for an appointment Test Results: Test results from this visit will be discussed in further detail at your follow-up appointment, if applicable. Discharge Plan Admission Admit Date/Time: 12/14/24 23:11 Attending Provider: Pankaj Lou Primary Care Provider: Seth Lozano NP Discharge Orders/Prescriptions Prescriptions: No Action prochlorperazine maleate 10 mg tablet 10 mg PO Q6H PRN (Reason: nausea and vomiting) Qty: 30 2RF ondansetron 8 mg tablet,disintegrating 8 mg PO Q8H PRN (Reason: nausea and vomiting) Qty: 30 2RF lidocaine-prilocaine 2.5-2.5 % cream 1 applic topical ONCE PRN (Reason: port access) 30 Days Qty: 30 2RF ciprofloxacin HCl [Cipro] 500 mg tablet 500 mg PO BID Qty: 14 0RF oxycodone 5 mg tablet 5 mg PO Q6H PRN (Reason: pain) 7 Days Qty: 20 0RF Referrals / Follow Up: Seth Lozano WELDING PROCESS ENGINEER, WELDING PROCESS ENGINEER-C [Primary Care Provider] -
[2024-12-17 07:57] VITALS: BP 124/75; PULSE 67; RESP 16; TEMP 36.9; O2SAT 96
--- NOTE | 2024-12-17 09:11 | CASEMGMT ---
Dx: Perforated bladder, bladder cancer LACE: 2 6-clicks: 2 Medical record reviewed and patient evaluated for identification of discharge planning needs. Based on this review, at this time criteria are not present to indicate a need for discharge planning. Will remain available to assist with discharge planning needs as identified or requested.
[2024-12-17] MEDS: 0.9% Saline Lock 10 ML Syringe IV ×2 (10:11→11:32)
[2024-12-17 11:50] VITALS: BP 127/74; PULSE 66; RESP 16; TEMP 36.4; O2SAT 99
== END 2024-12-17 11:50 | disposition home or self-care (01) | DRG 654 ==
LOC: ED 20:32 → SDC 20:39 → MS3 20:39 → SDC 23:18 → MS3 23:18
PROVIDERS: Admitting Provider Urology; Emergency Provider Emergency Medicine; PCP Nurse Practitioner Family; Referring Provider Urology; Visit Provider Urology
PROC: 0TQB0ZZ Repair Bladder, Open Approach (ICD-10-PCS; CPT 49000; principal; 2024-12-14 22:00)
DX: N32.89 Other specified disorders of bladder (principal); N17.9 Acute kidney failure, unspecified; C67.2 Malignant neoplasm of lateral wall of bladder; N21.0 Calculus in bladder
CPT/HCPCS: 36415; 74177; 80048; 83605; 85025; 87040; 88305; 94668; 99284; Q9967; A4216; J0696; J2405

== ENCOUNTER → 2025-02-03 | Outpatient (CLI) | payer MEDICARE, OTHER, SELFPAY ==
--- OUTSIDE RECORDS SUMMARY | 2025-02-03 06:53 | XMS RPT_ITS | CCD ---
Author Organization [facility] Care Team Providers Care Hedis Manager Name Role Phone [employer] - ORDER PROCESSING MANAGER, KYRIE Faye Primary Care Phys ician DR KEYANNA STEELE DO Attending Unavailable [employer] - ORDER PROCESSING MANAGER, KYRIE Faye Primary Care U navailable [employer] - ORDER PROCESSING MANAGER, KYRIE Faye Attending U navailable [employer] - ORDER PROCESSING MANAGER, KYRIE Faye Primary Care U navailable [employer] - ORDER PROCESSING MANAGER, KYRIE Faye Attending U navailable [employer] - ORDER PROCESSING MANAGER, KYRIE Faye Primary Care U navailable [employer] - ORDER PROCESSING MANAGER, KYRIE Faye Primary Care U navailable [employer]ER - ORDER PROCESSING MANAGER, KYRIE Faye Attending U navailable Unavailable Primary Care Provider Unavailabl e WEIGHT, SINDHUOPHER Attending Unavailable Trego FAMILY RESOURCE MANAGEMENT SPECIALIST-C, Kyrie Sierra Primary Care Provi valeriy Dr. Donny Martinez MD Attending Provider Dr. Pankaj Lou MD Referring Provider Dr. Donny Martinez MD Referring Provider Marta FAMILY RESOURCE MANAGEMENT SPECIALIST-CKyrie Referring Provider Dr. Young Samuels DO Attending Provider Dr. Young Samuels DO Referring Provider [phone] Dr. Young Samuels DO Other Provider [phone] Jules Fuentes MD Attending Provider Dr. Mahad Villatoro DO Attending Provider Alessio MALLORY, Dr. Goodwin Attending Provider [phone] Alessio MALLORY, Dr. Goodwin Referring Provider [phone] Alessio MALLORY, Dr. Goodwin Other Provider Irving GARY, Dr. Tobin Referring Provider Jr FAMILY RESOURCE MANAGEMENT SPECIALIST-C, Shantel Attending Provider Sara MALLORY, Dr. Hines Attending Provider Sara MALLORY, Dr. Hines Referring Provider Tri GARY, Dr. Tyler Emergency Provider Marta FAMILY RESOURCE MANAGEMENT SPECIALIST-C, Kyrie Sierra Primary Care Provi valeriy Marta FAMILY RESOURCE MANAGEMENT SPECIALIST-C, Kyrie Sierra Referring Provider Juan MALLORY, Dr. Hines Attending Provider Irving GARY, Dr. Tobin Attending Provider Irving GARY, Dr. Tobin Referring Provider Tri GARY, Dr. Tyler Attending Provider Juan MALLORY, Dr. Hines Referring Provider Marta FAMILY RESOURCE MANAGEMENT SPECIALIST-C, Kyrie Sierra [facility] Provi valeriy Marta FAMILY RESOURCE MANAGEMENT SPECIALIST-C, Kyrie Sierra Referring Provider Juan MALLORY, Dr. Hines Attending Provider [phone] Donny Martinez MD Referring Provider Trego FAMILY RESOURCE MANAGEMENT SPECIALIST-C, Kyrie Sierra Primary [facility] Provi valeriy Dr. Donny Martinez MD Attending Provider [phone] Marta FAMILY RESOURCE MANAGEMENT SPECIALIST-C, Kyrie Sierra Referring Provider Irving GARY, Dr. Tobin Attending Provider Dasha MALLORY, Dr. Pankaj Mcgee Attending Provider Dasha MALLORY, Dr. Pankaj Mcgee Referring Provider Renzo AMLLORY, Simba Emergency Provider Renzo MALLORY, Simba Emergency Provider Dasha MALLORY, Dr. Pankaj Mcgee Admit Provider [phone] Jayson Bartlett Attending Unavailable Trego FAMILY RESOURCE MANAGEMENT SPECIALIST, Kyrie Sierra Primary Care Unav ailable Trego FAMILY RESOURCE MANAGEMENT SPECIALIST, Kyrie Sierra Primary Care Unav ailable Prah, Donny Referring Unavailable Prah, Donny Attending Unavailable Trego FAMILY RESOURCE MANAGEMENT SPECIALIST, Kyrie Sierra Primary Care Unav ailable Mahad Villatoro Attending Unavailable Mahad Villatoro Referring Unavailable Marta FAMILY RESOURCE MANAGEMENT SPECIALIST, Kyrie Sierra Primary Care Unav ailable Pankaj Lou Attending Unavailable DashaPankaj jaramillo Referring Unavailable Marta FAMILY RESOURCE MANAGEMENT SPECIALIST, Kyrie Sierra Primary Care Unav ailable Trego FAMILY RESOURCE MANAGEMENT SPECIALIST, Kyrie Sierra Referring Unav ailable Prah, Donny Attending Unavailable Trego FAMILY RESOURCE MANAGEMENT SPECIALIST, Kyrie Sierra Primary Care Unav ailable Buddy Mccallum Consulting Unavailable CalabrettaBuddy Referring Unavailable CalabrBuddy terrazas Attending Unavailable Trego FAMILY RESOURCE MANAGEMENT SPECIALIST, Kyrie Sierra Primary Care Unav ailable Trego FAMILY RESOURCE MANAGEMENT SPECIALIST, Kyrie Sierra Referring Unav ailable Prah, Donny Attending Unavailable Marta FAMILY RESOURCE MANAGEMENT SPECIALIST, Kyrie Sierra Primary Care Unav ailMichelle Muhammad Attending Unavailable Trego FAMILY RESOURCE MANAGEMENT SPECIALIST, Kyrie Sierra Primary Care Unav ailable Marta FAMILY RESOURCE MANAGEMENT SPECIALIST, Kyrie Sierra Referring Unav ailable Prah, Donny Attending Unavailable Trego FAMILY RESOURCE MANAGEMENT SPECIALIST, Kyrie Sierra Primary Care Unav ailable Marta FAMILY RESOURCE MANAGEMENT SPECIALIST, Kyrie Sierra Referring Unav ailable Buddy Mccallum Attending Unavailable Trego FAMILY RESOURCE MANAGEMENT SPECIALIST, Kyrie Sierra Primary Care Unav ailable Mahad Villatoro Attending Unavailable Mahad Villatoro Referring Unavailable Trego FAMILY RESOURCE MANAGEMENT SPECIALIST, Kyrie Sierra Referring Unav ailable Marat FAMILY RESOURCE MANAGEMENT SPECIALIST, Kyrie Sierra Primary Care Unav ailable Prah, Donny Attending Unavailable Trego FAMILY RESOURCE MANAGEMENT SPECIALIST, Kyrie Sierra Primary Care Rosaliav ailable Mahad Villatoro Attending Unavailable Mahad Villatoro Referring Unavailable Trego FAMILY RESOURCE MANAGEMENT SPECIALIST, Kyrie Sierra Primary Care Unav ailable Trego FAMILY RESOURCE MANAGEMENT SPECIALIST, Kyrie Sierra Referring Unav ailable Mahad Villatoro Attending Unavailable Trego FAMILY RESOURCE MANAGEMENT SPECIALIST, Kyrie Seirra Primary Care Unav ailable Trego FAMILY RESOURCE MANAGEMENT SPECIALIST, Kyrie Sierra Referring Unav ailable Prah, Donny Attending Unavailable Trego FAMILY RESOURCE MANAGEMENT SPECIALIST, Kyrie Sierra Primary Care Unav ailable Trego FAMILY RESOURCE MANAGEMENT SPECIALIST, Kyrie Sierra Referring Unav ailable Mahad Villatoro Attending Unavailable Trego FAMILY RESOURCE MANAGEMENT SPECIALIST, Kyrie Sierra Primary Care Unav ailable Prah, Donny Attending Unavailable PrahDonny Referring Unavailable Trego FAMILY RESOURCE MANAGEMENT SPECIALIST, Kyrie Sierra Primary Care Unav ailable IrvingMahad tuttle Referring Unavailable IrvingMahad tuttle Attending Unavailable Trego FAMILY RESOURCE MANAGEMENT SPECIALIST, Kyrie Sierra Primary Care Unav ailable Mahad Villatoro Referring Unavailable IrvingMahad tuttle Attending Unavailable Trego FAMILY RESOURCE MANAGEMENT SPECIALIST, Kyrie Sierra Primary Care Unav ailable Marta FAMILY RESOURCE MANAGEMENT SPECIALIST, Kyrie Sierra Referring Unav ailable Prah, Donny Attending Unavailable Trego FAMILY RESOURCE MANAGEMENT SPECIALIST, Kyrie Sierra Primary Care Unav ailable Mahad Villatoro Attending Unavailable Trego FAMILY RESOURCE MANAGEMENT SPECIALIST, Kyrie Sierra Primary Care Unav ailable Mahad Villatoro Attending Unavailable Mahad Villatoro Referring Unavailable Trego FAMILY RESOURCE MANAGEMENT SPECIALIST, Kyrie Sierra Primary Care Unav ailable Marta FAMILY RESOURCE MANAGEMENT SPECIALIST, Kyrie Rigo Referring Unav ailable Jr FAMILY RESOURCE MANAGEMENT SPECIALIST, Shantel Attending Unavailable Mahad Villatoro Attending Unavailable Marta FAMILY RESOURCE MANAGEMENT SPECIALIST, Kyrie Sierra Primary Care Unav ailable Mahad Villatoro Referring Unavailable Trego FAMILY RESOURCE MANAGEMENT SPECIALIST, Kyrie Sierra Primary Care Unav ailable Mahad Villatoro Attending Unavailable Mahad Villatoro Referring Unavailable SailorsDonny Referring Unavailable SailorsDonny Attending Unavailable Trego FAMILY RESOURCE MANAGEMENT SPECIALIST, Kyrie Sierra Primary Care Unav ailable Trego FAMILY RESOURCE MANAGEMENT SPECIALIST, Kyrie Sierra Primary Care Unav ailable Trego FAMILY RESOURCE MANAGEMENT SPECIALIST, Kyrie Veganis Referring Unav ailable Prah, Donny Attending Unavailable Trego FAMILY RESOURCE MANAGEMENT SPECIALIST, Kyrie Sierra Primary Care Unav ailable Trego FAMILY RESOURCE MANAGEMENT SPECIALIST, Kyrie Sierra Referring Unav ailable Jules Fuentes Attending Unavailable Marta FAMILY RESOURCE MANAGEMENT SPECIALIST, Kyrie Sierra Primary Care Unav ailable BrownMaluk Referring Unavailable BrownYoung Attending Unavailable Young Samuels Consulting Unavailable Marta FAMILY RESOURCE MANAGEMENT SPECIALIST, Kyrie Sierra Primary Care Unav ailable Prah, Donny Attending Unavailable PrahDonny Referring Unavailable Trego FAMILY RESOURCE MANAGEMENT SPECIALIST, Kyrie Sierra Primary Care Unav ailable Brown, Young Attending Unavailable BrownMaluk Referring Unavailable Trego FAMILY RESOURCE MANAGEMENT SPECIALIST, Kyrie Sierra Primary Care Unav ailable Pankaj Lou Attending Unavailable DashaPankaj jaramillo Referring Unavailable Marta FAMILY RESOURCE MANAGEMENT SPECIALIST, Kyrie Sierra Primary Care Unav ailable BrownYoung Referring Unavailable Young Samuels Attending Unavailable Marta FAMILY RESOURCE MANAGEMENT SPECIALIST, Kyrie Sierra Primary [facility] Unav ailable Pankaj Lou Attending Unavailable Dasha, Pankaj Mcgee Admitting Unavailable Dasha, Pankaj Mcgee Referring Unavailable Trego FAMILY RESOURCE MANAGEMENT SPECIALIST, Kyrie Sierra Primary Care Unav ailable Young Samuels Referring Unavailable Young Samuels Attending Unavailable Trego FAMILY RESOURCE MANAGEMENT SPECIALIST, Kyrie Sierra Primary Care Unav ailable Trego FAMILY RESOURCE MANAGEMENT SPECIALIST, Kyrie Sierra Referring Unav ailable Mahad Villatoro Attending Unavailable Trego FAMILY RESOURCE MANAGEMENT SPECIALIST, Kyrie Sierra [facility] Unav ailable PrahDonny Referring Unavailable Young Samuels Attending Unavailable Marta FAMILY RESOURCE MANAGEMENT SPECIALIST, Kyrie Sierra [facility] Unav ailable Prah, Donny Attending Unavailable DashaPankaj Referring Unavailable Marta FAMILY RESOURCE MANAGEMENT SPECIALIST, Kyrie Sierra [facility] Unav ailable Trego FAMILY RESOURCE MANAGEMENT SPECIALIST, Kyrie Sierra Referring Unav ailable Prah, Donny Attending Unavailable Marta FAMILY RESOURCE MANAGEMENT SPECIALIST, Kyrie Sierra [facility] Unav ailable Buddy Mccallum Attending Unavailable Buddy Mccallum Referring Unavailable Medications Current Medications Medication Drug Class(es) Dates [...] mg/ml / prilocaine 25 mg/ml topical cream (7 sources) Antiarrhythmic, Amide Local Anesthetic Start: 06-19-2024 Lidocaine-Prilocaine 2.5-2.5 % cream Active 1 NMA TOPICAL ONCE as needed for port access 30 June 19, 2024 1:00am 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 Misc Medication (3 sources) Start: 12-26-2023 Misc Medication Super beta prostate, 0 Refill(s), 63.6 Start Date: 12/26/23 Status: Ordered ondansetron 8 mg disintegrating oral tablet (7 sources) Serotonin-3 Receptor Antagonist Start: 06-19-2024 take 1 tablet by mouth every eight hours as needed for nausea and vomiting Ondansetron 8 mg tablet,disintegrating Active 8 mg PO Q8H as needed for nausea and vomiting June 19, 2024 1:00am 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 oxyCODONE hydrochloride 5 mg oral tablet (17 sources) Opioid Agonist Start: 12-13-2024 take 1 [...] bladder, unspecified prochlorperazine 10 mg oral tablet (7 sources) Phenothiazine Start: 06-19-2024 take 1 tablet by mouth every six hours as needed for nausea and vomiting Prochlorperazine Maleate 10 mg tablet Active 10 mg PO EVERY 6 HOURS as needed for nausea and vomiting June 19, 2024 1:00am Chemotherapy-induced nausea and vomiting Nausea with vomiting, unspecified Adverse effect of antineoplastic and immunosuppressive drugs, initial encounter Completed/Discontinued Medications Medication Drug Class(es) Dates Sig (Normalized) Sig (Original) acetaminophen 500 mg oral tablet (10 sources) Start: 04-04-2024 End: 11-07-2024 take 2 tablets by mouth every six hours as needed for pain Acetaminophen 500 mg tablet Discontinued 1000 mg PO EVERY 6 HOURS as needed for pain April 04, 2024 1:00am November 07, 2024 8:04am acetaminophen (T YLENOL) 325 mg cap Take by mouth. Active cephalexin 500 mg oral capsule (7 sources) Cephalosporin Antibacterial Start: 11-22-2023 End: 01-30-2024 [...] qDay, # 30 cap(s), 1 Refill(s), Pharmacy: [id number], BPH associated with nocturia, 165, cm, 12/26/23 14:46:00 EDT, Height, kg, 12/26/23 14:46:00 EDT, Dosing Weight Start Date: 12/26/23 Status: Ordered tamsulosin hydrochloride 0.4 mg oral capsule (7 sources) alpha-Adrenergic Olga Lidia Start: 02-28-2024 End: 05-07-2024 take 1 capsule by mouth at bedtime Tamsulosin 0.4 mg capsule Discontinued 0.4 mg PO AT BEDTIME February 28, 2024 1:00am May 07, 2024 10:06am Problems Active Problems Problem Classification Problem Date Documented Da te Episodic/Chronic Acute and unspecified renal failure (4 sources) Acute renal failure syndrome; Translations: [Acute [...] 06-11-2024 06-11-2024 Episodic Deficiency and other anemia (7 sources) Pancytopenia; Translations: [Other pancytopenia] 07-24-2024 Chronic Fever of unknown origin (7 sources) Fever; Translations: [Fever, unspecified] 07-24-2024 Episodic Genitourinary symptoms and ill-defined conditions (7 sources) Hematuria, unspecified; Translations: [Blood in urine] Onset: 12-26-2023 Episodic Hyperplasia of prostate (3 sources) Nocturia due to benign prostatic hypertrophy 12-26-2023 Chronic Malignant neoplasm without specification of site (5 sources) Malignant neoplastic disease; Translations: [Malignant (primary) neoplasm, unspecified] 12-13-2024 Chronic Comment on above: BLADDER Other diseases of bladder and urethra (1 source) Other specified disorders of bladder; Translations: [Other specified disorders of bladder] Onset: 01-03-2025 Chronic Other gastrointestinal disorders (4 sources) Finding of pelvis; Translations: [Other ascites] 12-14-2024 Episodic Unclassified (3 sources) Patient encounter status [...] immunosuppressive drugs, initial encounter] Onset: 06-19-2024 Episodic Lymphadenitis (20 sources) Mediastinal lymphadenopathy; Translations: [Localized enlarged lymph nodes] Onset: 05-17-2024 05-21-2024 Episodic Nausea and vomiting (1 source) Nausea with vomiting, unspecified; Translations: [Nausea with vomiting, unspecified] Onset: 06-19-2024 Episodic Other aftercare (1 source) Other termite treater helper (current) drug therapy; Translations: [Other termite treater helper (current) drug therapy] Onset: 07-08-2024 Episodic Other aftercare (1 source) Encounter for adjustment and management of vascular access device; Translations: [Encounter for adjustment and management of vascular access device] Onset: 07-26-2024 Episodic Other circulatory disease (1 source) Other specified symptoms and signs involving the circulatory and respiratory systems; Translations: [Other specified symptoms and signs involving the circulatory and respiratory systems] Onset: 05-17-2024 Episodic Other screening for suspected conditions (not mental disorders or infectious disease) (13 sources) Patient encounter status; Translations: [Encounter for screening for other disorder] Onset: 05-17-2024 06-11-2024 Episodic Residual codes; unclassified (1 source) Illness, unspecified; Translations: [Illness, unspecified] Onset: 07-29-2024 Episodic Results Test Name Value Interpretation Reference Range Facility Culture, Blood (WB)on 2024 CUB Blood cultures x2, from two different sites No growth in 5 days. Normal [facility] Comment on above: Performed By: #### M 200.1000 ####[facility] [address] [facility]. [place], [place], [id number] Performed By: #### L 503.6005, M200.1000 ####[facility] [address] [facility] [place], [address] Absolute lymphocyte countOrd ered By: Pankaj Lou on 12-17-2024 Lymphocytes Auto (Unsp spec) [#/Vol] 0.52 10*3/uL Low 0.83-4.51 [facility] Absolute neutrophil countOrd ered By: Pankaj Lou on 12-17-2024 Neutrophils (Bld) [#/Vol] 5.0 10*3/uL 2.0-7.7 [facility] Anion gap in Serum or Plasma Ordered By: Pankaj Lou on 12-17-2024 Anion gap [Moles/Vol] 9 mmol/L 5-15 [facility] Automated lymphocyte count a s percentage of total leukocytesOrdered By: Pankaj Lou on 12-17-2024 Lymphocytes/100 WBC Auto (Unsp spec) 8.4 % Low 19-41 [facility] BUN/creatinine ratioOrdered By: Pankaj Lou on 12-17-2024 Urea nitrogen/Creatinine [Mass ratio] 17.5 mg/mg - [facility] Basic Metabolic Profile (BMP )on 12-17-2024 BUN/CRE 17.5 RATIO Normal - [facility] Comment on above: Performed By: #### L 100.0100, L500.2500 ####[facility] [address] [place], [address] Calcium [Mass/Vol] 9.0 mg/dL Normal 7.6-11.0 [facility] Comment on above: Performed By: #### L 100.0100, L500.2500 ####[facility] [address] [place], [address] Chloride [Moles/Vol] 107 mmol/L Normal 98-108 [facility] Comment on above: Performed By: #### L 100.0100, L500.2500 ####[facility] [address] [place], [address] CO2 [Moles/Vol] 23.7 mmol/L Normal 21.0-32.0 [facility] Comment on above: Performed By: #### L 100.0100, L500.2500 ####[facility] [address] [place], [address] Creatinine [Mass/Vol] 0.82 mg/dL Normal 0.70-1.20 [facility] Comment on above: Performed By: #### L 100.0100, L500.2500 ####[facility] [address] [place], [address] ECRCL 73.96 ml/min Normal 50-250 [facility] Comment on above: Performed By: #### L 100.0100, L500.2500 ####[facility] [address] [place], [address] GAP 9 Normal 5-15 [facility] Comment on above: Performed By: #### L 100.0100, L500.2500 ####[facility] [address] [place], [address] GFR/1.73 sq M.predicted among non-blacks MDRD (S/P/Bld) [Vol rate/Area] 95 mL/min/{1.73_m2} Normal >60 [facility] Comment on above: Result Comment: mL/m in/1.73m2 CKD-EPI Creatinine Equation (2020) Performed By: #### L 100.0100, L500.2500 ####[facility] [address] [place], [address] Glucose [Mass/Vol] 114 mg/dL High 70-99 [facility] Comment on above: Performed By: #### L 100.0100, L500.2500 ####[facility] [address] [place], [address] Potassium [Moles/Vol] 4.0 mmol/L Normal 3.3-5.1 [facility] Comment on above: Performed By: #### L 100.0100, L500.2500 ####[facility] [address] [place], [address] Sodium [Moles/Vol] 139 mmol/L Normal 133-145 [facility] Comment on above: Performed By: #### L 100.0100, L500.2500 ####[facility] [address] [place], [address] Urea nitrogen [Mass/Vol] 14 mg/dL Normal 4-19 [facility] Comment on above: Performed By: #### L 100.0100, L500.2500 ####[facility] [address] [place], [address] Basophil percentageOrdered B y: Pankaj Lou on 12-17-2024 Basophils/100 WBC (Bld) 0.3 % 0-1 [facility] CBC W/Diff, Automatedon Absolute Lymph 0.52 X10 3/uL Low 0.83-4.51 [facility] Comment on above: Performed By: #### L 100.0100, L500.2500 ####[facility] [address] [place], [address] Absolute Neut 5.0 X10 3/uL Normal 2.0-7.7 [facility] Comment on above: Performed By: #### L 100.0100, L500.2500 ####[facility] [address] [place], [address] Basophils/100 WBC (Bld) 0.3 % Normal 0-1 [facility] Comment on above: Performed By: #### L 100.0100, L500.2500 ####[facility] [address] [place], [address] Eosinophils/100 WBC (Bld) 3.4 % Normal 0-5 [facility] Comment on above: Performed By: #### L 100.0100, L500.2500 ####[facility] [address] [place], [address] Erythrocyte distribution width (RBC) [Ratio] 12.5 % Normal 11.6-14.6 [facility] Comment on above: Performed By: #### L 100.0100, L500.2500 ####[facility] [address] [place], [address] Hematocrit (Bld) [Volume fraction] 33.7 % Low 40-54 [facility] Comment on above: Performed By: #### L 100.0100, L500.2500 ####[facility] [address] [place], [address] Hemoglobin (Bld) [Mass/Vol] 11.7 g/dL Low 13.0-16.5 [facility] Comment on above: Performed By: #### L 100.0100, L500.2500 ####[facility] [address] [place], [address] IG% 1.000 High 0.0-0.9 [facility] Comment on above: Result Comment: IG% - Immature Granulocytes (promyelocytes, myelocytes andmetamyelocytes) > 1% indicates that a LEFT SHIFT is Present. Performed By: #### L 100.0100, L500.2500 ####[facility] [address] [place], [address] Lymphocytes/100 WBC (Bld) 8.4 % Low 19-41 [facility] Comment on above: Performed By: #### L 100.0100, L500.2500 ####[facility] [address] [place], [address] MCH (RBC) [Entitic mass] 31.1 pg Normal 27.0-32.0 [facility] Comment on above: Performed By: #### L 100.0100, L500.2500 ####[facility] [address] [place], [address] MCHC (RBC) [Mass/Vol] 34.7 g/dL Normal 32-36 [facility] Comment on above: Performed By: #### L 100.0100, L500.2500 ####[facility] [address] [place], [address] MCV (RBC) [Entitic vol] 89.6 fL Normal 80-94 [facility] Comment on above: Performed By: #### L 100.0100, L500.2500 ####[facility] [address] [place], [address] Monocytes/100 WBC (Bld) 6.6 % Normal 0-10 [facility] Comment on above: Performed By: #### L 100.0100, L500.2500 ####[facility] [address] [place], [address] Neutrophils/100 WBC (Bld) 80.3 % High 47-70 [facility] Comment on above: Performed By: #### L 100.0100, L500.2500 ####[facility] [address] [place], [address] Nucleated RBC (Bld) [#/Vol] 0 10*3/uL Normal 0-5 [facility] Comment on above: Performed By: #### L 100.0100, L500.2500 ####[facility] [address] [place], [address] Platelet mean volume (Bld) [Entitic vol] 8.9 fL Normal 6.2-12.0 [facility] Comment on above: Performed By: #### L 100.0100, L500.2500 ####[facility] [address] [place], [address] Platelets (Bld) [#/Vol] 205 10*3/uL Normal 150-450 [facility] Comment on above: Performed By: #### L 100.0100, L500.2500 ####[facility] [address] [place], [address] RBC (Bld) [#/Vol] 3.76 10*6/uL Low 4.6-6.2 [facility] Comment on above: Performed By: #### L 100.0100, L500.2500 ####[facility] [address] [place], [address] RDW SD 41.3 fl Normal 35.1-43.9 [facility] Comment on above: Performed By: #### L 100.0100, L500.2500 ####[facility] [address] [place], [address] WBC (Bld) [#/Vol] 6.2 10*3/uL Normal 4.4-11.0 [facility] Comment on above: Performed By: #### L 100.0100, L500.2500 ####[facility] [address] [place], [address] Carbon dioxide, total [Moles /volume] in Central venous bloodOrdered By: Pankaj Lou on 12-17-2024 CO2 [Moles/Vol] 23.7 mmol/L 21.0-32.0 [facility] Chloride assayOrdered By: Lala Lou on 12-17-2024 Chloride [Moles/Vol] 107 mmol/L 98-108 [facility] Discharge Instructionon 090 Discharge Instruction Normal [facility] Eosinophil percentageOrdered By: Pankaj Lou on 12-17-2024 Eosinophils/100 WBC (Bld) 3.4 % 0-5 [facility] Erythrocyte distribution wid th ratioOrdered By: Pankaj Lou on 12-17-2024 Erythrocyte distribution width (RBC) [Ratio] 12.5 % 11.6-14.6 [facility] [facility] Erythrocyte distribution wid th standard deviationOrdered By: Pankaj Lou on 12-17-2024 Erythrocyte distribution width (RBC) [Ratio] 41.3 fl 35.1-43.9 [facility] Glomerular filtration rate ( GFR) estimation/1.73 sq m using serum, plasma, or whole bOrdered By: Pankaj Lou on 12-17-2024 GFR/1.73 sq M.predicted among non-blacks MDRD (S/P/Bld) [Vol rate/Area] 95 mL/min/{1.73_m2} >60 [facility] Comment on above: mL/min/1.73m2 CKD-EP I Creatinine Equation (2020) Hematocrit Auto (Bld) [Volum e fraction]Ordered By: Pankaj Lou on 12-17-2024 Hematocrit (Bld) [Volume fraction] 33.7 % Low 40-54 [facility] Hemoglobin measurementOrdere d By: Pankaj Lou on 12-17-2024 Hemoglobin (Bld) [Mass/Vol] 11.7 g/dL Low 13.0-16.5 [facility] Immature granulocytes/100 WB C Auto (Bld)Ordered By: Pankaj Lou on 12-17-2024 Immature granulocytes/100 WBC (Bld) 1.000 % High 0.0-0.9 [facility] Comment on above: IG% - Immature Granu locytes (promyelocytes, myelocytes and metamyelocytes) > 1% indicates that a LEFT SHIFT is Present. MCV (mean corpuscular volume ) determinationOrdered By: Pankaj Lou on 12-17-2024 MCV (RBC) [Entitic vol] 89.6 fL 80-94 [facility] Mean corpuscular hemoglobin (MCH) determinationOrdered By: Pankaj Lou on 12-17-2024 MCH (RBC) [Entitic mass] 31.1 pg 27.0-32.0 [facility] Mean corpuscular hemoglobin concentration (MCHC) determinationOrdered By: Pankaj Lou on 12-17-2024 MCHC (RBC) [Mass/Vol] 34.7 g/dL 32-36 [facility] Mean platelet volume determi nationOrdered By: Pankaj Lou on 12-17-2024 Platelet mean volume (Bld) [Entitic vol] 8.9 fL 6.2-12.0 [facility] Monocyte percentageOrdered B y: Pankaj Lou on 12-17-2024 Monocytes/100 WBC (Bld) 6.6 % 0-10 [facility] Neutrophil percentageOrdered By: Pankaj Lou on 12-17-2024 Neutrophils/100 WBC (Bld) 80.3 % High 47-70 [facility] Nucleated red blood cell per centageOrdered By: Pankaj Lou on 12-17-2024 Nucleated RBC/100 WBC (Bld) [Ratio] 0 % 0-5 [facility] Platelet countOrdered By: Lala Lou on 12-17-2024 Platelets (Bld) [#/Vol] 205 10*3/uL 150-450 [facility] Potassium measurement (mass/ volume)Ordered By: Pankaj Lou on 12-17-2024 Potassium (Unsp spec) [Mass/Vol] 4.0 mmol/L 3.3-5.1 [facility] RBC Auto (Bld) [#/Vol]Ordere d By: Pankaj Lou on 12-17-2024 RBC (Bld) [#/Vol] 3.76 10*6/uL Low 4.6-6.2 [facility] Serum creatinine measurement (mass/volume)Ordered By: Pankaj Lou on 12-17-2024 Creatinine [Mass/Vol] 0.82 mg/dL 0.70-1.20 [facility] Serum glucose measurement (m ass/volume)Ordered By: Pankaj Lou on 12-17-2024 Glucose [Mass/Vol] 114 mg/dL High 70-99 [facility] Serum or plasma calcium nicolasa urement (mass/volume)Ordered By: Pankaj Lou on 12-17-2024 Calcium [Mass/Vol] 9.0 mg/dL 7.6-11.0 [facility] Serum or plasma urea nitroge n measurement (mass/volume)Ordered By: Pankaj Lou on 12-17-2024 Urea nitrogen [Mass/Vol] 14 mg/dL 4-19 [facility] Sodium levelOrdered By: Pankaj Lou on 12-17-2024 Sodium [Moles/Vol] 139 mmol/L 133-145 [facility] White blood cell (WBC) count Ordered By: Pankaj Lou on 12-17-2024 WBC (Bld) [#/Vol] 6.2 10*3/uL 4.4-11.0 [facility] Basic Metabolic Profile (BMP )on 12-16-2024 BUN/CRE 18.6 RATIO Normal 10-20 [facility] Comment on above: Performed By: #### L 100.0100, L500.2500 ####[facility] [address] [place], [address] Calcium [Mass/Vol] 8.9 mg/dL Normal 7.6-11.0 [facility] Comment on above: Performed By: #### L 100.0100, L500.2500 ####[facility] [address] [place], [address] Chloride [Moles/Vol] 107 mmol/L Normal 98-108 [facility] Comment on above: Performed By: #### L 100.0100, L500.2500 ####[facility] [address] [place], [address] CO2 [Moles/Vol] 22.2 mmol/L Normal 21.0-32.0 [facility] Comment on above: Performed By: #### L 100.0100, L500.2500 ####[facility] [address] [place], [address] Creatinine [Mass/Vol] 0.89 mg/dL Normal 0.70-1.20 [facility] Comment on above: Performed By: #### L 100.0100, L500.2500 ####[facility] [address] [place], [address] ECRCL 68.14 ml/min Normal 50-250 [facility] Comment on above: Performed By: #### L 100.0100, L500.2500 ####[facility] [address] [place], [address] GAP 10 Normal 5-15 [facility] Comment on above: Performed By: #### L 100.0100, L500.2500 ####[facility] [address] [place], [address] GFR/1.73 sq M.predicted among non-blacks MDRD (S/P/Bld) [Vol rate/Area] 93 mL/min/{1.73_m2} Normal >60 [facility] Comment on above: Result Comment: mL/m in/1.73m2 CKD-EPI Creatinine Equation (2020) Performed By: #### L 100.0100, L500.2500 ####[facility] [address] [place], [address] Glucose [Mass/Vol] 105 mg/dL High 70-99 [facility] Comment on above: Performed By: #### L 100.0100, L500.2500 ####[facility] [address] [place], [address] Potassium [Moles/Vol] 4.3 mmol/L Normal 3.3-5.1 [facility] Comment on above: Performed By: #### L 100.0100, L500.2500 ####[facility] [address] [place], [address] Sodium [Moles/Vol] 139 mmol/L Normal 133-145 [facility] Comment on above: Performed By: #### L 100.0100, L500.2500 ####[facility] [address] [place], [address] Urea nitrogen [Mass/Vol] 17 mg/dL Normal 4-19 [facility] Comment on above: Performed By: #### L 100.0100, L500.2500 ####[facility] [address] [place], [address] CBC W/Diff, Automatedon 09-0 -2024 Absolute Lymph 0.44 X10 3/uL Low 0.83-4.51 [facility] Comment on above: Performed By: #### L 100.0100, L500.2500 ####[facility] [address] [place], [address] Absolute Neut 5.3 X10 3/uL Normal 2.0-7.7 [facility] Comment on above: Performed By: #### L 100.0100, L500.2500 ####[facility] [address] [place], [address] Basophils/100 WBC (Bld) 0.2 % Normal 0-1 [facility] Comment on above: Performed By: #### L 100.0100, L500.2500 ####[facility] [address] [place], [address] Eosinophils/100 WBC (Bld) 1.3 % Normal 0-5 [facility] Comment on above: Performed By: #### L 100.0100, L500.2500 ####[facility] [address] [place], [address] Erythrocyte distribution width (RBC) [Ratio] 12.9 % Normal 11.6-14.6 [facility] Comment on above: Performed By: #### L 100.0100, L500.2500 ####[facility] [address] [place], [address] Hematocrit (Bld) [Volume fraction] 32.5 % Low 40-54 [facility] Comment on above: Performed By: #### L 100.0100, L500.2500 ####[facility] [address] [place], [address] Hemoglobin (Bld) [Mass/Vol] 11.2 g/dL Low 13.0-16.5 [facility] Comment on above: Performed By: #### L 100.0100, L500.2500 ####[facility] [address] [place], [address] IG% 0.600 Normal 0.0-0.9 [facility] Comment on above: Result Comment: IG% - Immature Granulocytes (promyelocytes, myelocytes andmetamyelocytes) > 1% indicates that a LEFT SHIFT is Present. Performed By: #### L 100.0100, L500.2500 ####[facility] [address] [place], [address] Lymphocytes/100 WBC (Bld) 7.0 % Low 19-41 [facility] Comment on above: Performed By: #### L 100.0100, L500.2500 ####[facility] [address] [place], [address] MCH (RBC) [Entitic mass] 31.3 pg Normal 27.0-32.0 [facility] Comment on above: Performed By: #### L 100.0100, L500.2500 ####[facility] [address] [place], [address] MCHC (RBC) [Mass/Vol] 34.5 g/dL Normal 32-36 [facility] Comment on above: Performed By: #### L 100.0100, L500.2500 ####[facility] [address] [place], [address] MCV (RBC) [Entitic vol] 90.8 fL Normal 80-94 [facility] Comment on above: Performed By: #### L 100.0100, L500.2500 ####[facility] [address] [place], [address] Monocytes/100 WBC (Bld) 6.4 % Normal 0-10 [facility] Comment on above: Performed By: #### L 100.0100, L500.2500 ####[facility] [address] [place], [address] Neutrophils/100 WBC (Bld) 84.5 % High 47-70 [facility] Comment on above: Performed By: #### L 100.0100, L500.2500 ####[facility] [address] [place], [address] Nucleated RBC (Bld) [#/Vol] 0 10*3/uL Normal 0-5 [facility] Comment on above: Performed By: #### L 100.0100, L500.2500 ####[facility] [address] [place], [address] Platelet mean volume (Bld) [Entitic vol] 9.0 fL Normal 6.2-12.0 [facility] Comment on above: Performed By: #### L 100.0100, L500.2500 ####[facility] [address] [place], [address] Platelets (Bld) [#/Vol] 204 10*3/uL Normal 150-450 [facility] Comment on above: Performed By: #### L 100.0100, L500.2500 ####[facility] [address] [place], [address] RBC (Bld) [#/Vol] 3.58 10*6/uL Low 4.6-6.2 [facility] Comment on above: Performed By: #### L 100.0100, L500.2500 ####[facility] [address] [place], [address] RDW SD 43.2 fl Normal 35.1-43.9 [facility] Comment on above: Performed By: #### L 100.0100, L500.2500 ####[facility] [address] [place], [address] WBC (Bld) [#/Vol] 6.3 10*3/uL Normal 4.4-11.0 [facility] Comment on above: Performed By: #### L 100.0100, L500.2500 ####[facility] [address] [place], [address] Basic Metabolic Profile (BMP )on 12-15-2024 BUN/CRE 14.9 RATIO Normal 10-20 [facility] Comment on above: Performed By: #### L 500.2500, L100.0100 ####[facility] [address] [place], [address] Calcium [Mass/Vol] 8.4 mg/dL Normal 7.6-11.0 [facility] Comment on above: Performed By: #### L 500.2500, L100.0100 ####[facility] [address] [place], [address] Chloride [Moles/Vol] 106 mmol/L Normal 98-108 [facility] Comment on above: Performed By: #### L 500.2500, L100.0100 ####[facility] [address] [place], [address] CO2 [Moles/Vol] 20.9 mmol/L Low 21.0-32.0 [facility] Comment on above: Performed By: #### L 500.2500, L100.0100 ####[facility] [address] [place], [address] Creatinine [Mass/Vol] 2.18 mg/dL High 0.70-1.20 [facility] Comment on above: Performed By: #### L 500.2500, L100.0100 ####[facility] [address] [place], [address] ECRCL 27.82 ml/min Low 50-250 [facility] Comment on above: Performed By: #### L 500.2500, L100.0100 ####[facility] [address] [place], [address] GAP 10 Normal 5-15 [facility] Comment on above: Performed By: #### L 500.2500, L100.0100 ####[facility] [address] [place], [address] GFR/1.73 sq M.predicted among non-blacks MDRD (S/P/Bld) [Vol rate/Area] 32 mL/min/{1.73_m2} Low >60 [facility] Comment on above: Result Comment: mL/m in/1.73m2 CKD-EPI Creatinine Equation (2020) Performed By: #### L 500.2500, L100.0100 ####[facility] [address] [place], [address] Glucose [Mass/Vol] 114 mg/dL High 70-99 [facility] Comment on above: Performed By: #### L 500.2500, L100.0100 ####[facility] [address] [place], [address] Potassium [Moles/Vol] 4.4 mmol/L Normal 3.3-5.1 [facility] Comment on above: Performed By: #### L 500.2500, L100.0100 ####[facility] [address] [place], [address] Sodium [Moles/Vol] 136 mmol/L Normal 133-145 [facility] Comment on above: Performed By: #### L 500.2500, L100.0100 ####[facility] [address] [place], [address] Urea nitrogen [Mass/Vol] 33 mg/dL High 4-19 [facility] Comment on above: Performed By: #### L 500.2500, L100.0100 ####[facility] [address] [place], [address] CBC W/Diff, Automatedon -3 Absolute Lymph 0.52 X10 3/uL Low 0.83-4.51 [facility] Comment on above: Performed By: #### L 500.2500, L100.0100 ####[facility] [address] [place], [address] Absolute Neut 9.4 X10 3/uL High 2.0-7.7 [facility] Comment on above: Performed By: #### L 500.2500, L100.0100 ####[facility] [address] [place], [address] Basophils/100 WBC (Bld) 0.1 % Normal 0-1 [facility] Comment on above: Performed By: #### L 500.2500, L100.0100 ####[facility] [address] [place], [address] Eosinophils/100 WBC (Bld) 0.1 % Normal 0-5 [facility] Comment on above: Performed By: #### L 500.2500, L100.0100 ####[facility] [address] [place], [address] Erythrocyte distribution width (RBC) [Ratio] 13.0 % Normal 11.6-14.6 [facility] Comment on above: Performed By: #### L 500.2500, L100.0100 ####[facility] [address] [place], [address] Hematocrit (Bld) [Volume fraction] 32.2 % Low 40-54 [facility] Comment on above: Performed By: #### L 500.2500, L100.0100 ####[facility] [address] [place], [address] Hemoglobin (Bld) [Mass/Vol] 11.5 g/dL Low 13.0-16.5 [facility] Comment on above: Performed By: #### L 500.2500, L100.0100 ####[facility] [address] [place], [address] IG% 0.500 Normal 0.0-0.9 [facility] Comment on above: Result Comment: IG% - Immature Granulocytes (promyelocytes, myelocytes andmetamyelocytes) > 1% indicates that a LEFT SHIFT is Present. Performed By: #### L 500.2500, L100.0100 ####[facility] [address] [place], [address] Lymphocytes/100 WBC (Bld) 4.9 % Low 19-41 [facility] Comment on above: Performed By: #### L 500.2500, L100.0100 ####[facility] [address] [place], [address] MCH (RBC) [Entitic mass] 32.0 pg Normal 27.0-32.0 [facility] Comment on above: Performed By: #### L 500.2500, L100.0100 ####[facility] [address] [place], [address] MCHC (RBC) [Mass/Vol] 35.7 g/dL Normal 32-36 [facility] Comment on above: Performed By: #### L 500.2500, L100.0100 ####[facility] [address] [place], [address] MCV (RBC) [Entitic vol] 89.7 fL Normal 80-94 [facility] Comment on above: Performed By: #### L 500.2500, L100.0100 ####[facility] [address] [place], [address] Monocytes/100 WBC (Bld) 6.0 % Normal 0-10 [facility] Comment on above: Performed By: #### L 500.2500, L100.0100 ####[facility] [address] [place], [address] Neutrophils/100 WBC (Bld) 88.4 % High 47-70 [facility] Comment on above: Performed By: #### L 500.2500, L100.0100 ####[facility] [address] [place], [address] Nucleated RBC (Bld) [#/Vol] 0 10*3/uL Normal 0-5 [facility] Comment on above: Performed By: #### L 500.2500, L100.0100 ####[facility] [address] [place], [address] Platelet mean volume (Bld) [Entitic vol] 9.2 fL Normal 6.2-12.0 [facility] Comment on above: Performed By: #### L 500.2500, L100.0100 ####[facility] [address] [place], [address] Platelets (Bld) [#/Vol] 225 10*3/uL Normal 150-450 [facility] Comment on above: Performed By: #### L 500.2500, L100.0100 ####[facility] [address] [place], [address] RBC (Bld) [#/Vol] 3.59 10*6/uL Low 4.6-6.2 [facility] Comment on above: Performed By: #### L 500.2500, L100.0100 ####[facility] [address] [place], [address] RDW SD 42.8 fl Normal 35.1-43.9 [facility] Comment on above: Performed By: #### L 500.2500, L100.0100 ####[facility] [address] [place], [address] WBC (Bld) [#/Vol] 10.6 10*3/uL Normal 4.4-11.0 [facility] Comment on above: Performed By: #### L 500.2500, L100.0100 ####[facility] [address] [place], [address] Abdomen/Pelvis W IV Cont ONL Yon 12-14-2024 Abdomen/Pelvis W IV Cont ONLY Normal [facility] Absolute lymphocyte countOrd ered By: Simba Muller on 12-14-2024 Lymphocytes Auto (Unsp spec) [#/Vol] 0.45 10*3/uL Low 0.83-4.51 [facility] Absolute neutrophil countOrd ered By: Simba Muller on 12-14-2024 Neutrophils (Bld) [#/Vol] 17.3 10*3/uL High 2.0-7.7 [facility] Anion gap in Serum or Plasma Ordered By: Simba Muller on 12-14-2024 Anion gap [Moles/Vol] 15 mmol/L 5 [facility] Automated lymphocyte count a s percentage of total leukocytesOrdered By: Simba Muller on 12-14-2024 Lymphocytes/100 WBC Auto (Unsp spec) 2.4 % Low [facility] BUN/creatinine ratioOrdered By: Simba Muller on 12-14-2024 Urea nitrogen/Creatinine [Mass ratio] 11.6 mg/mg 02-03 [facility] Basic Metabolic Profile (BMP )on 12-14-2024 BUN/CRE 11.6 RATIO Normal 02-03 [facility] Comment on above: Performed By: #### L 100.0100, L500.2500 ####[facility] [address] [place], [address] Calcium [Mass/Vol] 9.0 mg/dL Normal 7.6-11.0 [facility] Comment on above: Performed By: #### L 100.0100, L500.2500 ####[facility] [address] [place], [address] Chloride [Moles/Vol] 101 mmol/L Normal 98-108 [facility] Comment on above: Performed By: #### L 100.0100, L500.2500 ####[facility] [address] [place], [address] CO2 [Moles/Vol] 19.6 mmol/L Low 21.0-32.0 [facility] Comment on above: Performed By: #### L 100.0100, L500.2500 ####[facility] [address] [place], [address] Creatinine [Mass/Vol] 3.92 mg/dL High 0.70-1.20 [facility] Comment on above: Performed By: #### L 100.0100, L500.2500 ####[facility] [address] [place], [address] ECRCL 15.47 ml/min Low 50-250 [facility] Comment on above: Performed By: #### L 100.0100, L500.2500 ####[facility] [address] [place], [address] GAP 15 Normal 5-15 [facility] Comment on above: Performed By: #### L 100.0100, L500.2500 ####[facility] [address] [place], [address] GFR/1.73 sq M.predicted among non-blacks MDRD (S/P/Bld) [Vol rate/Area] 16 mL/min/{1.73_m2} Low >60 [facility] Comment on above: Result Comment: mL/m in/1.73m2 CKD-EPI Creatinine Equation (2020) Performed By: #### L 100.0100, L500.2500 ####[facility] [address] [place], [address] Glucose [Mass/Vol] 159 mg/dL High 70-99 [facility] Comment on above: Performed By: #### L 100.0100, L500.2500 ####[facility] [address] [place], [address] Potassium [Moles/Vol] 4.4 mmol/L Normal 3.3-5.1 [facility] Comment on above: Performed By: #### L 100.0100, L500.2500 ####[facility] [address] [place], [address] Sodium [Moles/Vol] 135 mmol/L Normal 133-145 [facility] Comment on above: Performed By: #### L 100.0100, L500.2500 ####[facility] [address] [place], [address] Urea nitrogen [Mass/Vol] 45 mg/dL High 4-19 [facility] Comment on above: Performed By: #### L 100.0100, L500.2500 ####[facility] [address] [place], [address] Basophil percentageOrdered B y: Simba Muller on 12-14-2024 Basophils/100 WBC (Bld) 0.1 % 0-1 [facility] CBC W/Diff, Automatedon 11-17 0-2024 Absolute Lymph 0.45 X10 3/uL Low 0.83-4.51 [facility] Comment on above: Performed By: #### L 100.0100, L500.2500 ####[facility] [address] [place], [address] Absolute Neut 17.3 X10 3/uL High 2.0-7.7 [facility] Comment on above: Performed By: #### L 100.0100, L500.2500 ####[facility] [address] [place], [address] Basophils/100 WBC (Bld) 0.1 % Normal 0-1 [facility] Comment on above: Performed By: #### L 100.0100, L500.2500 ####[facility] [address] [place], [address] Eosinophils/100 WBC (Bld) 0.0 % Normal 0-5 [facility] Comment on above: Performed By: #### L 100.0100, L500.2500 ####[facility] [address] [place], [address] Erythrocyte distribution width (RBC) [Ratio] 12.8 % Normal 11.6-14.6 [facility] Comment on above: Performed By: #### L 100.0100, L500.2500 ####[facility] [address] [place], [address] Hematocrit (Bld) [Volume fraction] 37.3 % Low 40-54 [facility] Comment on above: Performed By: #### L 100.0100, L500.2500 ####[facility] [address] [place], [address] Hemoglobin (Bld) [Mass/Vol] 13.4 g/dL Normal 13.0-16.5 [facility] Comment on above: Performed By: #### L 100.0100, L500.2500 ####[facility] [address] [place], [address] IG% 0.600 Normal 0.0-0.9 [facility] Comment on above: Result Comment: IG% - Immature Granulocytes (promyelocytes, myelocytes andmetamyelocytes) > 1% indicates that a LEFT SHIFT is Present. Performed By: #### L 100.0100, L500.2500 ####[facility] [address] [place], [address] Lymphocytes/100 WBC (Bld) 2.4 % Low 19-41 [facility] Comment on above: Performed By: #### L 100.0100, L500.2500 ####[facility] [address] [place], [address] MCH (RBC) [Entitic mass] 31.8 pg Normal 27.0-32.0 [facility] Comment on above: Performed By: #### L 100.0100, L500.2500 ####[facility] [address] [place], [address] MCHC (RBC) [Mass/Vol] 35.9 g/dL Normal 32-36 [facility] Comment on above: Performed By: #### L 100.0100, L500.2500 ####[facility] [address] [place], [address] MCV (RBC) [Entitic vol] 88.4 fL Normal 80-94 [facility] Comment on above: Performed By: #### L 100.0100, L500.2500 ####[facility] [address] [place], [address] Monocytes/100 WBC (Bld) 3.4 % Normal 0-10 [facility] Comment on above: Performed By: #### L 100.0100, L500.2500 ####[facility] [address] [place], [address] Neutrophils/100 WBC (Bld) 93.5 % High 47-70 [facility] Comment on above: Performed By: #### L 100.0100, L500.2500 ####[facility] [address] [place], [address] Nucleated RBC (Bld) [#/Vol] 0 10*3/uL Normal 0-5 [facility] Comment on above: Performed By: #### L 100.0100, L500.2500 ####[facility] [address] [place], [address] Platelet mean volume (Bld) [Entitic vol] 8.9 fL Normal 6.2-12.0 [facility] Comment on above: Performed By: #### L 100.0100, L500.2500 ####[facility] [address] [place], [address] Platelets (Bld) [#/Vol] 257 10*3/uL Normal 150-450 [facility] Comment on above: Performed By: #### L 100.0100, L500.2500 ####[facility] [address] [place], [address] RBC (Bld) [#/Vol] 4.22 10*6/uL Low 4.6-6.2 [facility] Comment on above: Performed By: #### L 100.0100, L500.2500 ####[facility] [address] [place], [address] RDW SD 41.5 fl Normal 35.1-43.9 [facility] Comment on above: Performed By: #### L 100.0100, L500.2500 ####[facility] [address] [place], [address] WBC (Bld) [#/Vol] 18.6 10*3/uL High 4.4-11.0 [facility] Comment on above: Performed By: #### L 100.0100, L500.2500 ####[facility] [address] [place], [address] Carbon dioxide, total [Moles /volume] in Central venous bloodOrdered By: Simba Muller on 12-14-2024 CO2 [Moles/Vol] 19.6 mmol/L Low 21.0-32.0 [facility] Chloride assayOrdered By: Johny Muller on 12-14-2024 Chloride [Moles/Vol] 101 mmol/L 98-108 [facility] Emergency Department Summary on 12-14-2024 Emergency Department Summary Normal [facility] Eosinophil percentageOrdered By: Simba Muller on 12-14-2024 Eosinophils/100 WBC (Bld) 0.0 % 0-5 [facility] Erythrocyte distribution wid th ratioOrdered By: Simba Muller on 12-14-2024 Erythrocyte distribution width (RBC) [Ratio] 12.8 % 11.6-14.6 [facility] Erythrocyte distribution wid th standard deviationOrdered By: Simba Muller on 12-14-2024 Erythrocyte distribution width (RBC) [Ratio] 41.5 fl 35.1-43.9 [facility] Glomerular filtration rate ( GFR) estimation/1.73 sq m using serum, plasma, or whole bOrdered By: Simba Muller on 12-14-2024 GFR/1.73 sq M.predicted among non-blacks MDRD (S/P/Bld) [Vol rate/Area] 16 mL/min/{1.73_m2} Low >60 [facility] Comment on above: mL/min/1.73m2 CKD-EP I Creatinine Equation (2020) Hematocrit Auto (Bld) [Volum e fraction]Ordered By: Simba Muller on 12-14-2024 Hematocrit (Bld) [Volume fraction] 37.3 % Low 40-54 [facility] Hemoglobin measurementOrdere d By: Simba Muller on 12-14-2024 Hemoglobin (Bld) [Mass/Vol] 13.4 g/dL 13.0-16.5 [facility] Immature granulocytes/100 WB C Auto (Bld)Ordered By: Simba Muller on 12-14-2024 Immature granulocytes/100 WBC (Bld) 0.600 % 0.0-0.9 [facility] Comment on above: IG% - Immature Granu locytes (promyelocytes, myelocytes and metamyelocytes) > 1% indicates that a LEFT SHIFT is Present. Lactic Acidon 12-14-2024 Lactate [Moles/Vol] 1.7 mmol/L Normal 0.0-2.0 [facility] Comment on above: Order Comment: Y Performed By: #### L 503.6005, M200.1000 ####[facility] [address] [place], [address] Lactic acid measurementOrder ed By: Simba Muller on 12-14-2024 Lactate [Moles/Vol] 1.7 mmol/L 0.0-2.0 [facility] MCV (mean corpuscular volume ) determinationOrdered By: Simba Muller on 12-14-2024 MCV (RBC) [Entitic vol] 88.4 fL 80-94 [facility] MR/POSTOP.ANEon 12-14-2024 MR/POSTOP.ANE Normal [facility] MR/[id number] 12-14-2024 MR/POSTOPAN2 Normal [facility] Mean corpuscular hemoglobin (MCH) determinationOrdered By: Simba Muller on 12-14-2024 MCH (RBC) [Entitic mass] 31.8 pg 27.0-32.0 [facility] Mean corpuscular hemoglobin concentration (MCHC) determinationOrdered By: Simba Muller on 12-14-2024 MCHC (RBC) [Mass/Vol] 35.9 g/dL 32-36 [facility] Mean platelet volume determi nationOrdered By: Simba Muller on 12-14-2024 Platelet mean volume (Bld) [Entitic vol] 8.9 fL 6.2-12.0 [facility] Monocyte percentageOrdered B y: Simba Muller on 12-14-2024 Monocytes/100 WBC (Bld) 3.4 % 0-10 [facility] Neutrophil percentageOrdered By: Simba Muller on 12-14-2024 Neutrophils/100 WBC (Bld) 93.5 % High 47-70 [facility] Nucleated red blood cell per centageOrdered By: Simba Muller on 12-14-2024 Nucleated RBC/100 WBC (Bld) [Ratio] 0 % 0-5 [facility] Operative Reporton Operative Report Normal [facility] Platelet countOrdered By: Johny Muller on 12-14-2024 Platelets (Bld) [#/Vol] 257 10*3/uL 150-450 [facility] Potassium measurement (mass/ volume)Ordered By: Simba Muller on 12-14-2024 Potassium (Unsp spec) [Mass/Vol] 4.4 mmol/L 3.3-5.1 [facility] RBC Auto (Bld) [#/Vol]Ordere d By: Simba Muller on 12-14-2024 RBC (Bld) [#/Vol] 4.22 10*6/uL Low 4.6-6.2 [facility] Serum creatinine measurement (mass/volume)Ordered By: Simba Muller on 12-14-2024 Creatinine [Mass/Vol] 3.92 mg/dL High 0.70-1.20 [facility] Serum glucose measurement (m ass/volume)Ordered By: Simba Muller on 12-14-2024 Glucose [Mass/Vol] 159 mg/dL High 70-99 [facility] Serum or plasma calcium nicolasa urement (mass/volume)Ordered By: Simba Muller on 12-14-2024 Calcium [Mass/Vol] 9.0 mg/dL 7.6-11.0 [facility] Serum or plasma urea nitroge n measurement (mass/volume)Ordered By: Simba Muller on 12-14-2024 Urea nitrogen [Mass/Vol] 45 mg/dL High 4-19 [facility] Sodium levelOrdered By: Simba Muller on 12-14-2024 Sodium [Moles/Vol] 135 mmol/L 133-145 [facility] White blood cell (WBC) count Ordered By: Simba Muller on 12-14-2024 WBC (Bld) [#/Vol] 18.6 10*3/uL High 4.4-11.0 [facility] Discharge Instructionon 11-16 Discharge Instruction Normal [facility] Discharge Instruction Normal [facility] Operative Reporton Operative Report Normal [facility] Surgery Specimen Level Aminah 12-13-2024 Surgery Specimen Level IV Normal [facility] Comment on above: Performed By: #### P SUIV ####[facility] [address] [place], [place], [address] NATERAon 11-07-2024 NATURA SEE SCANNED REPORT Normal [facility] Comment on above: Performed By: #### L 900.0098 ####[facility] [address] [place], [place], [address] Oncology Visit Reporton 10-16 Oncology Visit Report Normal [facility] Radiation Oncology Visiton 0 11-07-2024 Radiation Oncology Visit Normal [facility] Absolute lymphocyte countOrd ered By: Donny Martinez on 10-30-2024 Lymphocytes Auto (Unsp spec) [#/Vol] 0.54 10*3/uL Low 0.83-4.51 [facility] Absolute neutrophil countOrd ered By: Donny Martinez on 10-30-2024 Neutrophils (Bld) [#/Vol] 2.0 10*3/uL 2.0-7.7 [facility] Anion gap in Serum or Plasma Ordered By: Donny Martinez on 10-30-2024 Anion gap [Moles/Vol] 11 mmol/L 5-15 [facility] Automated lymphocyte count a s percentage of total leukocytesOrdered By: Donny Martinez on 10-30-2024 Lymphocytes/100 WBC Auto (Unsp spec) 18.4 % Low 19-41 [facility] BUN/creatinine ratioOrdered By: Donny Annantonia on 10-30-2024 Urea nitrogen/Creatinine [Mass ratio] 18.3 mg/mg 10-20 [facility] Basophil percentageOrdered B y: Donny Annantonia on 10-30-2024 Basophils/100 WBC (Bld) 0.7 % 0-1 [facility] Bilirubin, totalOrdered By: Donny Annantonia on 10-30-2024 Bilirubin [Mass/Vol] 0.45 mg/dL 0.00-1.30 [facility] Blood manual differential co mment interpretation (narrative result)Ordered By: Donny Martinez on 10-30-2024 Manual differential comment J Luis (Bld) [Interp] SCANNED [facility] Comment on above: LYMPHOPENIA NOTED CBC W/Diff, Automatedon 10-15 SMEAR COMMENT SCANNED Normal [facility] Comment on above: Result Comment: LYMP HOPENIA NOTED Performed By: #### L 350.1000, L100.0100, L500.4050, L504.2610 ####[facility] [address] [place], [place], [id number] CT Chest, Abd, Pel w/Contras ton 10-30-2024 CT Chest, Abd, Pel w/Contrast Normal [facility] Carbon dioxide, total [Moles /volume] in Central venous bloodOrdered By: Donny Sethantonia on 10-30-2024 CO2 [Moles/Vol] 21.5 mmol/L 21.0-32.0 [facility] Chloride assayOrdered By: Zonia Martinez on 10-30-2024 Chloride [Moles/Vol] 106 mmol/L 98-108 [facility] Comprehensive Metabolic Prof ilon 10-30-2024 Albumin [Mass/Vol] 3.9 g/dL Normal 3.4-4.8 [facility] Comment on above: Performed By: #### L 350.1000, L100.0100, L500.4050, L504.2610 ####[facility] [address] [place], [address] Albumin/Globulin [Mass ratio] 1.5 {ratio} Normal 0.9-2.4 [facility] Comment on above: Performed By: #### L 350.1000, L100.0100, L500.4050, L504.2610 ####[facility] [address] [place], [address] ALK PHOS 85 U/L Normal 40-129 [facility] Comment on above: Performed By: #### L 350.1000, L100.0100, L500.4050, L504.2610 ####[facility] [address] [place], [address] ALT [Catalytic activity/Vol] 20 U/L Normal <=46 [facility] Comment on above: Performed By: #### L 350.1000, L100.0100, L500.4050, L504.2610 ####[facility] [address] [place], [address] AST [Catalytic activity/Vol] 22 U/L Normal <=37 [facility] Comment on above: Performed By: #### L 350.1000, L100.0100, L500.4050, L504.2610 ####[facility] [address] [place], [address] Bilirubin [Mass/Vol] 0.45 mg/dL Normal 0.00-1.30 [facility] Comment on above: Performed By: #### L 350.1000, L100.0100, L500.4050, L504.2610 ####[facility] [address] [place], [address] BUN/CRE 18.3 RATIO Normal 10-20 [facility] Comment on above: Performed By: #### L 350.1000, L100.0100, L500.4050, L504.2610 ####[facility] [address] [place], [address] Calcium [Mass/Vol] 9.8 mg/dL Normal 7.6-11.0 [facility] Comment on above: Performed By: #### L 350.1000, L100.0100, L500.4050, L504.2610 ####[facility] [address], [address] Chloride [Moles/Vol] 106 mmol/L Normal 98-108 [facility] Comment on above: Performed By: #### L 350.1000, L100.0100, L500.4050, L504.2610 ####[facility] [address] [place], [address] CO2 [Moles/Vol] 21.5 mmol/L Normal 21.0-32.0 [facility] Comment on above: Performed By: #### L 350.1000, L100.0100, L500.4050, L504.2610 ####[facility] [address] [place], [address] Creatinine [Mass/Vol] 1.01 mg/dL Normal 0.70-1.20 [facility] Comment on above: Performed By: #### L 350.1000, L100.0100, L500.4050, L504.2610 ####[facility] [address] [place], [address] ECRCL 59.09 ml/min Normal 50-250 [facility] Comment on above: Performed By: #### L 350.1000, L100.0100, L500.4050, L504.2610 ####[facility] [address] [place], [address] GAP 11 Normal 5-15 [facility] Comment on above: Performed By: #### L 350.1000, L100.0100, L500.4050, L504.2610 ####[facility] [address] [place], [address] GFR/1.73 sq M.predicted among non-blacks MDRD (S/P/Bld) [Vol rate/Area] 81 mL/min/{1.73_m2} Normal >60 [facility] Comment on above: Result Comment: mL/m in/1.73m2 CKD-EPI Creatinine Equation (2020) Performed By: #### L 350.1000, L100.0100, L500.4050, L504.2610 ####[facility] [address] [place], [address] Globulin (S) [Mass/Vol] 2.5 g/dL Normal 2.2-4.2 [facility] Comment on above: Performed By: #### L 350.1000, L100.0100, L500.4050, L504.2610 ####[facility] [address] [place], [address] Glucose [Mass/Vol] 99 mg/dL Normal 70-99 [facility] Comment on above: Performed By: #### L 350.1000, L100.0100, L500.4050, L504.2610 ####[facility] [address] [place], [address] Potassium [Moles/Vol] 4.0 mmol/L Normal 3.3-5.1 [facility] Comment on above: Performed By: #### L 350.1000, L100.0100, L500.4050, L504.2610 ####[facility] [address] [place], [address] Sodium [Moles/Vol] 138 mmol/L Normal 133-145 [facility] Comment on above: Performed By: #### L 350.1000, L100.0100, L500.4050, L504.2610 ####[facility] [address] [place], [address] T PROT 6.4 g/dL Normal 5.9-8.4 [facility] Comment on above: Performed By: #### L 350.1000, L100.0100, L500.4050, L504.2610 ####[facility] [address] [place], [place], [address] Urea nitrogen [Mass/Vol] 19 mg/dL Normal 4-19 [facility] Comment on above: Performed By: #### L 350.1000, L100.0100, L500.4050, L504.2610 ####[facility] [address] [place], [place], [address] Cytology report of Body flui d Cyto stainOrdered By: Donny Martinez on 10-30-2024 Cytology report Cyto stain Doc (Body fld) SEE PATHOLOGY REPORT [facility] Comment on above: Specimen submitted t o Anatomical Pathology Department for testing. Cytology, Body Fluid / CSFon 10-30-2024 CYTOLOGY,BF/CSF SEE PATHOLOGY REPORT Normal [facility] Comment on above: Order Comment: Reaso n for Exam: URINEComments: URINEURINE Result Comment: Spec imen submitted to Anatomical Pathology Department fortesting. Performed By: #### L 350.1000, L100.0100, L500.4050, L504.2610 ####[facility] [address] [place], [place], [address] Eosinophil percentageOrdered By: Donny Martinez on 10-30-2024 Eosinophils/100 WBC (Bld) 3.1 % 0-5 [facility] Erythrocyte distribution wid th ratioOrdered By: Donny Martinez on 10-30-2024 Erythrocyte distribution width (RBC) [Ratio] 12.2 % 11.6-14.6 [facility] Erythrocyte distribution wid th standard deviationOrdered By: Donny Martinez on 10-30-2024 Erythrocyte distribution width (RBC) [Ratio] 41.0 fl 35.1-43.9 [facility] Glomerular filtration rate ( GFR) estimation/1.73 sq m using serum, plasma, or whole bOrdered By: Donny Martinez on 10-30-2024 GFR/1.73 sq M.predicted among non-blacks MDRD (S/P/Bld) [Vol rate/Area] 81 mL/min/{1.73_m2} >60 [facility] Comment on above: mL/min/1.73m2 CKD-EP I Creatinine Equation (2020) Hematocrit Auto (Bld) [Volum e fraction]Ordered By: Donny Martinez on 10-30-2024 Hematocrit (Bld) [Volume fraction] 37.8 % Low 40-54 [facility] Hemoglobin measurementOrdere d By: Donny Martinez on 10-30-2024 Hemoglobin (Bld) [Mass/Vol] 13.6 g/dL 13.0-16.5 [facility] Immature granulocytes/100 WB C Auto (Bld)Ordered By: Donny Martinez on 10-30-2024 Immature granulocytes/100 WBC (Bld) 0.000 % 0.0-0.9 [facility] Comment on above: IG% - Immature Granu locytes (promyelocytes, myelocytes and metamyelocytes) > 1% indicates that a LEFT SHIFT is Present. LDHon 10-30-2024 LDH 191 U/L Normal 87-241 [facility] Comment on above: Order Comment: 1 Performed By: #### L 350.1000, L100.0100, L500.4050, L504.2610 ####[facility] [address] [place], [address] Laboratory - Chemistry and C hemistry - challengeOrdered By: Donny Martinez on 10-30-2024 AST [Catalytic activity/Vol] 22 U/L <38 [facility] Lactate dehydrogenase (LDH) measurementOrdered By: Donny Martinez on 10-30-2024 LDH [Catalytic activity/Vol] 191 U/L 87-241 [facility] MCV (mean corpuscular volume ) determinationOrdered By: Donny Martinez on 10-30-2024 MCV (RBC) [Entitic vol] 91.3 fL 80-94 [facility] Mean corpuscular hemoglobin (MCH) determinationOrdered By: Donny Martinez on 10-30-2024 MCH (RBC) [Entitic mass] 32.9 pg High 27.0-32.0 [facility] Mean corpuscular hemoglobin concentration (MCHC) determinationOrdered By: Donny Martinez on 10-30-2024 MCHC (RBC) [Mass/Vol] 36.0 g/dL 32-36 [facility] Mean platelet volume determi nationOrdered By: Donny Martinez on 10-30-2024 Platelet mean volume (Bld) [Entitic vol] 8.9 fL 6.2-12.0 [facility] Monocyte percentageOrdered B y: Donny Martinez on 10-30-2024 Monocytes/100 WBC (Bld) 11.6 % High 0-10 [facility] Neutrophil percentageOrdered By: Dnony Martinez on 10-30-2024 Neutrophils/100 WBC (Bld) 66.2 % 47-70 [facility] Nucleated red blood cell per centageOrdered By: Donny Martinez on 10-30-2024 Nucleated RBC/100 WBC (Bld) [Ratio] 0 % 0-5 [facility] Platelet countOrdered By: Zonia Martinez on 10-30-2024 Platelets (Bld) [#/Vol] 157 10*3/uL 150-450 [facility] Potassium measurement (mass/ volume)Ordered By: Donny Martinez on 10-30-2024 Potassium (Unsp spec) [Mass/Vol] 4.0 mmol/L 3.3-5.1 [facility] RBC Auto (Bld) [#/Vol]Ordere d By: Donny Martinez on 10-30-2024 RBC (Bld) [#/Vol] 4.14 10*6/uL Low 4.6-6.2 [facility] Serum creatinine measurement (mass/volume)Ordered By: Donny Martinez on 10-30-2024 Creatinine [Mass/Vol] 1.01 mg/dL 0.70-1.20 [facility] Serum globulin measurementOr dered By: Donny Martinez on 10-30-2024 Globulin (S) [Mass/Vol] 2.5 g/dL 2.2-4.2 [facility] Serum glucose measurement (m ass/volume)Ordered By: Donny Martinez on 10-30-2024 Glucose [Mass/Vol] 99 mg/dL 70-99 [facility] Serum or plasma alanine cheung otransferase (ALT) measurementOrdered By: Donny Martinez on 10-30-2024 ALT [Catalytic activity/Vol] 20 U/L <47 [facility] Serum or plasma albumin nicolasa urement (mass/volume)Ordered By: Donny Martinez on 10-30-2024 Albumin [Mass/Vol] 3.9 g/dL 3.4-4.8 [facility] Serum or plasma albumin/glob ulin mass ratioOrdered By: Donny Martinez on 10-30-2024 Albumin/Globulin [Mass ratio] 1.5 {ratio} 0.9-2.4 [facility] Serum or plasma alkaline daisy sphatase measurementOrdered By: Donny Martinez on 10-30-2024 ALP [Catalytic activity/Vol] 85 U/L 40-129 [facility] Serum or plasma calcium nicolasa urement (mass/volume)Ordered By: Donny Martinez on 10-30-2024 Calcium [Mass/Vol] 9.8 mg/dL 7.6-11.0 [facility] Serum or plasma urea nitroge n measurement (mass/volume)Ordered By: Donny Martinez on 10-30-2024 Urea nitrogen [Mass/Vol] 19 mg/dL 4-19 [facility] Sodium levelOrdered By: Rudy Martinez on 10-30-2024 Sodium [Moles/Vol] 138 mmol/L 133-145 [facility] Special Stain Group IIon Special Stain Group II Normal [facility] Comment on above: Performed By: #### P SSII ####[facility] [address] [place], [address] Total proteinOrdered By: Mohsen Martinez on 10-30-2024 Protein [Mass/Vol] 6.4 g/dL 5.9-8.4 [facility] White blood cell (WBC) count Ordered By: Donny Martinez on 10-30-2024 WBC (Bld) [#/Vol] 2.9 10*3/uL Low 4.4-11.0 [facility] CBC W/Diff, Automatedon 07-18 PATH REV Reviewed Normal [facility] Comment on above: Result Comment: SEE REPORT IN PATIENT'S EMR AMENDED REPORT 08/14/24 1331 PATH REV previously reported as: Silva ace Performed By: #### L 500.4050, L300.4310, L300.3900, L100.0100, M200.1000, L503.6005 ####[facility] [address] [place], [place], [address] Bilirubin Test strip Ql (U)O rdered By: Donny Martinez on 08-12-2024 Bilirubin Ql (U) Negative Negative [facility] Q[facility] (Bld) 2+ Normal [facility] Comment on above: Performed By: #### L 501.5200, L100.0100, L400.0001, L500.4050, L350.1000, L501.2300, L504.2610 ####[facility] [address] [place], [place], [id number] SMEAR COMMENT SCANNED Normal [facility] Comment on above: Performed By: #### L 501.5200, L100.0100, L400.0001, L500.4050, L350.1000, L501.2300, L504.2610 ####[facility] [address] [place], [place], [address] Comprehensive Metabolic Prof neon 08-12-2024 Albumin [Mass/Vol] 3.5 g/dL Normal 3.4-4.8 [facility] Comment on above: Performed By: #### L 501.5200, L100.0100, L400.0001, L500.4050, L350.1000, L501.2300, L504.2610 ####[facility] [address] [place], [address] Albumin/Globulin [Mass ratio] 1.5 {ratio} Normal 0.9-2.4 [facility] Comment on above: Performed By: #### L 501.5200, L100.0100, L400.0001, L500.4050, L350.1000, L501.2300, L504.2610 ####[facility] [address] [place], [address] ALK PHOS 80 U/L Normal 40-129 [facility] Comment on above: Performed By: #### L 501.5200, L100.0100, L400.0001, L500.4050, L350.1000, L501.2300, L504.2610 ####[facility] [address] [place], [address] ALT [Catalytic activity/Vol] 18 U/L Normal <=46 [facility] Comment on above: Performed By: #### L 501.5200, L100.0100, L400.0001, L500.4050, L350.1000, L501.2300, L504.2610 ####[facility] [address] [place], [address] AST [Catalytic activity/Vol] 20 U/L Normal <=37 [facility] Comment on above: Performed By: #### L 501.5200, L100.0100, L400.0001, L500.4050, L350.1000, L501.2300, L504.2610 ####[facility] [address] [place], [address] Bilirubin [Mass/Vol] 0.22 mg/dL Normal 0.00-1.30 [facility] Comment on above: Performed By: #### L 501.5200, L100.0100, L400.0001, L500.4050, L350.1000, L501.2300, L504.2610 ####[facility] [address] [place], [address] BUN/CRE 16.6 RATIO Normal 10-20 [facility] Comment on above: Performed By: #### L 501.5200, L100.0100, L400.0001, L500.4050, L350.1000, L501.2300, L504.2610 ####[facility] [address] [place], [address] Calcium [Mass/Vol] 9.5 mg/dL Normal 7.6-11.0 [facility] Comment on above: Performed By: #### L 501.5200, L100.0100, L400.0001, L500.4050, L350.1000, L501.2300, L504.2610 ####[facility] [address] [place], [address] Chloride [Moles/Vol] 106 mmol/L Normal 98-108 [facility] Comment on above: Performed By: #### L 501.5200, L100.0100, L400.0001, L500.4050, L350.1000, L501.2300, L504.2610 ####[facility] [address] [place], [address] CO2 [Moles/Vol] 22.9 mmol/L Normal 21.0-32.0 [facility] Comment on above: Performed By: #### L 501.5200, L100.0100, L400.0001, L500.4050, L350.1000, L501.2300, L504.2610 ####[facility] [address] [place], [address] Creatinine [Mass/Vol] 1.00 mg/dL Normal 0.70-1.20 [facility] Comment on above: Performed By: #### L 501.5200, L100.0100, L400.0001, L500.4050, L350.1000, L501.2300, L504.2610 ####[facility] [address] [place], [address] ECRCL 59.69 ml/min Normal 50-250 [facility] Comment on above: Performed By: #### L 501.5200, L100.0100, L400.0001, L500.4050, L350.1000, L501.2300, L504.2610 ####[facility] [address] [place], [address] GAP 11 Normal 5-15 [facility] Comment on above: Performed By: #### L 501.5200, L100.0100, L400.0001, L500.4050, L350.1000, L501.2300, L504.2610 ####[facility] [address] [place], [address] GFR/1.73 sq M.predicted among non-blacks MDRD (S/P/Bld) [Vol rate/Area] 81 mL/min/{1.73_m2} Normal >60 [facility] Comment on above: Result Comment: mL/m in/1.73m2 CKD-EPI Creatinine Equation (2020) Performed By: #### L 501.5200, L100.0100, L400.0001, L500.4050, L350.1000, L501.2300, L504.2610 ####[facility] [address] [place], [address] Globulin (S) [Mass/Vol] 2.4 g/dL Normal 2.2-4.2 [facility] Comment on above: Performed By: #### L 501.5200, L100.0100, L400.0001, L500.4050, L350.1000, L501.2300, L504.2610 ####[facility] [address] [place], [address] Glucose [Mass/Vol] 119 mg/dL High 70-99 [facility] Comment on above: Performed By: #### L 501.5200, L100.0100, L400.0001, L500.4050, L350.1000, L501.2300, L504.2610 ####[facility] [address] [place], [address] Potassium [Moles/Vol] 4.1 mmol/L Normal 3.3-5.1 [facility] Comment on above: Performed By: #### L 501.5200, L100.0100, L400.0001, L500.4050, L350.1000, L501.2300, L504.2610 ####[facility] [address] [place], [address] Sodium [Moles/Vol] 139 mmol/L Normal 133-145 [facility] Comment on above: Performed By: #### L 501.5200, L100.0100, L400.0001, L500.4050, L350.1000, L501.2300, L504.2610 ####[facility] [address] [place], [address] T PROT 5.9 g/dL Normal 5.9-8.4 [facility] Comment on above: Performed By: #### L 501.5200, L100.0100, L400.0001, L500.4050, L350.1000, L501.2300, L504.2610 ####[facility] [address] [place], [address] Urea nitrogen [Mass/Vol] 17 mg/dL Normal 4-19 [facility] Comment on above: Performed By: #### L 501.5200, L100.0100, L400.0001, L500.4050, L350.1000, L501.2300, L504.2610 ####[facility] [address] [place], [address] Cytology, Body Fluid / CSFon 08-12-2024 CYTOLOGY,BF/CSF SEE PATHOLOGY REPORT Normal [facility] Comment on above: Order Comment: Reaso n for Exam: URINEComments: URINEURINE Result Comment: Spec imen submitted to Anatomical Pathology Department fortesting. Performed By: #### L 501.5200, L100.0100, L400.0001, L500.4050, L350.1000, L501.2300, L504.2610 ####[facility] [address] [place], [place], [address] Ketones Test strip Ql (U)Ord ered By: Donny Martinez on 08-12-2024 Ketones Ql (U) Negative Negative [facility] LDHon 08-12-2024 LDH 212 U/L Normal 87-241 [facility] Comment on above: Order Comment: 1 Performed By: #### L 501.5200, L100.0100, L400.0001, L500.4050, L350.1000, L501.2300, L504.2610 ####[facility] [address] [place], [place], [id number] Laboratory - Hematology and Cell countsOrdered By: Donny Martinez on 08-12-2024 Anisocytosis Ql (Bld) 2+ [facility] Magnesiumon 08-12-2024 Magnesium [Mass/Vol] 2.1 mg/dL Normal 1.5-2.2 [facility] Comment on above: Performed By: #### L 501.5200, L100.0100, L400.0001, L500.4050, L350.1000, L501.2300, L504.2610 ####[facility] [address] [place], [place], [id number] Magnesium measurement (mass/ volume)Ordered By: Donny Martinez on 08-12-2024 Magnesium (Unsp spec) [Mass/Vol] 2.1 mg/dL 1.5-2.2 [facility] Microscopic analysis of urin e for red blood cells (RBC)Ordered By: Donny aMrtinez on 08-12-2024 Microscopic analysis of urine for red blood cells (RBC) 0-5 SEEN /hpf 0-5 [facility] Mucus LM Ql (Urine sed)Order ed By: Donny Martinez on 08-12-2024 Mucus Ql (Urine sed) RARE /hpf [facility] Nitrite Test strip Ql (U)Ord ered By: Donny Martinez on 08-12-2024 Nitrite Ql (U) Negative Negative [facility] Oncology Visit Reporton 07-17 Oncology Visit Report Normal [facility] Phosphoruson 08-12-2024 Phosphate [Mass/Vol] 2.6 mg/dL Low 2.7-4.5 [facility] Comment on above: Performed By: #### L 501.5200, L100.0100, L400.0001, L500.4050, L350.1000, L501.2300, L504.2610 ####[facility] [address] [place], [address] Protein Test strip Ql (U)Ord ered By: Donny Martinez on 08-12-2024 Protein Ql (U) 30 mg/dl High Negative [facility] Radiation Oncology Visiton 0 08-12-2024 Radiation Oncology Visit Normal [facility] Special Stain Group IIon Special Stain Group II Normal [facility] Comment on above: Performed By: #### P SSII ####[facility] [address] [place], [address] Squamous epithelial cells de tection in urine sediment by light microscopyOrdered By: Donny Martinez on 08-12-2024 Epithelial cells.squamous LM Ql (Urine sed) 0-5 SEEN /hpf 0-5 [facility] Urinalysis, Completeon 08-12 BACTERIA RARE Normal None Seen [facility] Comment on above: Order Comment: COLLE CTOR TO SPECIFY Performed By: #### L 501.5200, L100.0100, L400.0001, L500.4050, L350.1000, L501.2300, L504.2610 ####[facility] [address] [place], [address] EPI,SQUAMOUS 0-5 SEEN Normal 0-5 [facility] Comment on above: Order Comment: COLLE CTOR TO SPECIFY Performed By: #### L 501.5200, L100.0100, L400.0001, L500.4050, L350.1000, L501.2300, L504.2610 ####[facility] [address] [place], [address] Mucus Ql (Urine sed) RARE Normal [facility] Comment on above: Order Comment: COLLE CTOR TO SPECIFY Performed By: #### L 501.5200, L100.0100, L400.0001, L500.4050, L350.1000, L501.2300, L504.2610 ####[facility] [address] [place], [address] RBC 0-5 SEEN Normal 0-5 [facility] Comment on above: Order Comment: COLLE CTOR TO SPECIFY Performed By: #### L 501.5200, L100.0100, L400.0001, L500.4050, L350.1000, L501.2300, L504.2610 ####[facility] [address] [place], [place], [id number] WBC 10-25 SEEN Normal 0-5 [facility] Comment on above: Order Comment: COLLE CTOR TO SPECIFY Performed By: #### L 501.5200, L100.0100, L400.0001, L500.4050, L350.1000, L501.2300, L504.2610 ####[facility] [address] [place], [place], [id number] Urine clarityOrdered By: Mohsen Martinez on 08-12-2024 Clarity (U) Sl. Cloudy Clear [facility] Urine color determinationOrd ered By: Donny Martinez on 08-12-2024 Color (U) Yellow Yellow [facility] Urine glucose detectionOrder ed By: Donny Martinez on 08-12-2024 Glucose Ql (U) Normal mg/dl Normal [facility] Urine leukocyte esterase det ection by dipstickOrdered By: Donny Martinez on 08-12-2024 Leukocyte esterase Test strip Ql (U) 100 /ul High Negative [facility] Urine pHOrdered By: Donny brantley on 08-12-2024 pH (U) 6.0 [pH] 5.0 - 8.0 [facility] Urine sediment bacteria coun t by microscopy (number/high power field)Ordered By: Donny Martinez on 04-28-2025 Bacteria LM.HPF (Urine sed) [#/Area] RARE /hpf None Seen [facility] Urine specific gravity measu rementOrdered By: Donny Martinez on 08-12-2024 Specific gravity (U) [Rel density] 1.015 1.002-1.030 [facility] Urine urobilinogen measureme ntOrdered By: Donny Martinez on 08-12-2024 Urobilinogen Ql (U) Normal mg/dl Normal [facility] White blood cell countOrdere d By: Donny Martinez on 08-12-2024 White blood cell count 10-25 SEEN /hpf 0-5 [facility] Culture, Blood (WB)on 2024 CUB Blood cultures x2, from two different sites No growth in 5 days. Normal [facility] Comment on above: Performed By: #### L 500.4050, L300.4310, L300.3900, L100.0100, M200.1000, L503.6005 ####[facility] [address] [place], [place], [address] Urine Cultureon 07-26-2024 URC Culture exhibits no growth. Normal [facility] Comment on above: Performed By: #### L 400.0001, M100.678, M100.2200 ####[facility] [address] [place], [place], [id number] 12 Lead EKGon 07-24-2024 12 Lead EKG Normal [facility] Absolute lymphocyte countOrd ered By: Jayson Bartlett on 07-24-2024 Lymphocytes Auto (Unsp spec) [#/Vol] 0.16 10*3/uL Low 0.83-4.51 [facility] Absolute neutrophil countOrd ered By: Jayson Bartlett on 07-24-2024 Neutrophils (Bld) [#/Vol] 0.7 10*3/uL Low 2.0-7.7 [facility] Activated partial thrombopla stin time (aPTT) in platelet poor plasma by coagulation aOrdered By: Jayson Bartlett on 07-24-2024 aPTT Coag (PPP) [Time] 25.7 s 24.1-36.2 [facility] Anion gap in Serum or Plasma Ordered By: Jayson Bartlett on 07-24-2024 Anion gap [Moles/Vol] 12 mmol/L 5-15 [facility] Automated lymphocyte count a s percentage of total leukocytesOrdered By: Jayson Bartlett on 07-24-2024 Lymphocytes/100 WBC Auto (Unsp spec) 13.1 % Low 19-41 [facility] BUN/creatinine ratioOrdered By: Jayson Bartlett on 07-24-2024 Urea nitrogen/Creatinine [Mass ratio] 22.9 mg/mg High 10-20 [facility] Basophil percentageOrdered B y: Jayson Bartlett on 07-24-2024 Basophils/100 WBC (Bld) 0.8 % 0-1 [facility] Bilirubin Test strip Ql (U)O rdered By: Jayson Bartlett on 07-24-2024 Bilirubin Ql (U) Negative Negative [facility] Bilirubin, totalOrdered By: Jayson Bartlett on 07-24-2024 Bilirubin [Mass/Vol] 0.40 mg/dL 0.00-1.30 [facility] Blood cultureOrdered By: Marianne Bartlett on 07-24-2024 Bacteria identified Cx Nom (Bld) No growth in 5 days. [facility] Bacteria identified Cx Nom (Bld) No growth in 5 days. [facility] Carbon dioxide, total [Moles /volume] in Central venous bloodOrdered By: Jayson Bartlett on 07-24-2024 CO2 [Moles/Vol] 20.2 mmol/L Low 21.0-32.0 [facility] Chest PA and Lateralon 07-24 Chest PA and Lateral Normal [facility] Chloride assayOrdered By: Miguel Bartlett on 07-24-2024 Chloride [Moles/Vol] 100 mmol/L 98-108 [facility] Comprehensive Metabolic Prof ilon 07-24-2024 Albumin [Mass/Vol] 3.1 g/dL Low 3.4-4.8 [facility] Comment on above: Performed By: #### L 500.4050, L300.4310, L300.3900, L100.0100, M200.1000, L503.6005 ####[facility] [address] [place], [address] Albumin/Globulin [Mass ratio] 1.3 {ratio} Normal 0.9-2.4 [facility] Comment on above: Performed By: #### L 500.4050, L300.4310, L300.3900, L100.0100, M200.1000, L503.6005 ####[facility] [address] [place], [address] ALK PHOS 61 U/L Normal 40-129 [facility] Comment on above: Performed By: #### L 500.4050, L300.4310, L300.3900, L100.0100, M200.1000, L503.6005 ####[facility] [address] [place], [address] ALT [Catalytic activity/Vol] 11 U/L Normal <=46 [facility] Comment on above: Performed By: #### L 500.4050, L300.4310, L300.3900, L100.0100, M200.1000, L503.6005 ####[facility] [address] [place], [address] AST [Catalytic activity/Vol] 12 U/L Normal <=37 [facility] Comment on above: Performed By: #### L 500.4050, L300.4310, L300.3900, L100.0100, M200.1000, L503.6005 ####[facility] [address] [place], [address] Bilirubin [Mass/Vol] 0.40 mg/dL Normal 0.00-1.30 [facility] Comment on above: Performed By: #### L 500.4050, L300.4310, L300.3900, L100.0100, M200.1000, L503.6005 ####[facility] [address] [place], [address] BUN/CRE 22.9 RATIO High 10-20 [facility] Comment on above: Performed By: #### L 500.4050, L300.4310, L300.3900, L100.0100, M200.1000, L503.6005 ####[facility] [address] [place], [address] Calcium [Mass/Vol] 8.7 mg/dL Normal 7.6-11.0 [facility] Comment on above: Performed By: #### L 500.4050, L300.4310, L300.3900, L100.0100, M200.1000, L503.6005 ####[facility] [address] [place], [address] Chloride [Moles/Vol] 100 mmol/L Normal 98-108 [facility] Comment on above: Performed By: #### L 500.4050, L300.4310, L300.3900, L100.0100, M200.1000, L503.6005 ####[facility] [address] [place], [address] CO2 [Moles/Vol] 20.2 mmol/L Low 21.0-32.0 [facility] Comment on above: Performed By: #### L 500.4050, L300.4310, L300.3900, L100.0100, M200.1000, L503.6005 ####[facility] [address] [place], [address] Creatinine [Mass/Vol] 0.84 mg/dL Normal 0.70-1.20 [facility] Comment on above: Performed By: #### L 500.4050, L300.4310, L300.3900, L100.0100, M200.1000, L503.6005 ####[facility] [address] [place], [address] ECRCL 72.10 ml/min Normal 50-250 [facility] Comment on above: Performed By: #### L 500.4050, L300.4310, L300.3900, L100.0100, M200.1000, L503.6005 ####[facility] [address] [place], [address] GAP 12 Normal 5-15 [facility] Comment on above: Performed By: #### L 500.4050, L300.4310, L300.3900, L100.0100, M200.1000, L503.6005 ####[facility] [address] [place], [address] GFR/1.73 sq M.predicted among non-blacks MDRD (S/P/Bld) [Vol rate/Area] 94 mL/min/{1.73_m2} Normal >60 [facility] Comment on above: Result Comment: mL/m in/1.73m2 CKD-EPI Creatinine Equation (2020) Performed By: #### L 500.4050, L300.4310, L300.3900, L100.0100, M200.1000, L503.6005 ####[facility] [address] [place], [address] Globulin (S) [Mass/Vol] 2.3 g/dL Normal 2.2-4.2 [facility] Comment on above: Performed By: #### L 500.4050, L300.4310, L300.3900, L100.0100, M200.1000, L503.6005 ####[facility] [address] [place], [address] Glucose [Mass/Vol] 98 mg/dL Normal 70-99 [facility] Comment on above: Performed By: #### L 500.4050, L300.4310, L300.3900, L100.0100, M200.1000, L503.6005 ####[facility] [address] [place], [address] Potassium [Moles/Vol] 3.5 mmol/L Normal 3.3-5.1 [facility] Comment on above: Performed By: #### L 500.4050, L300.4310, L300.3900, L100.0100, M200.1000, L503.6005 ####[facility] [address] [place], [address] Sodium [Moles/Vol] 132 mmol/L Low 133-145 [facility] Comment on above: Performed By: #### L 500.4050, L300.4310, L300.3900, L100.0100, M200.1000, L503.6005 ####[facility] [address] [place], [address] T PROT 5.4 g/dL Low 5.9-8.4 [facility] Comment on above: Performed By: #### L 500.4050, L300.4310, L300.3900, L100.0100, M200.1000, L503.6005 ####[facility] [address] [place], [address] Urea nitrogen [Mass/Vol] 19 mg/dL Normal 4-19 [facility] Comment on above: Performed By: #### L 500.4050, L300.4310, L300.3900, L100.0100, M200.1000, L503.6005 ####[facility] [address] [place], [address] Emergency Department Summary on 07-24-2024 Emergency Department Summary Normal [facility] Eosinophil percentageOrdered By: Jayson Bartlett on 07-24-2024 Eosinophils/100 WBC (Bld) 0.8 % 0-5 [facility] Epithelial cells.squamous LM Ql (Urine sed)Ordered By: Jayson Bartlett on 07-24-2024 Epithelial cells.squamous LM.HPF (Urine sed) [#/Area] 0 /[HPF] 0-5 [facility] Erythrocyte distribution wid th (RBC) [Ratio]Ordered By: Jayson Bartlett on 07-24-2024 Erythrocyte distribution width (RBC) [Entitic vol] 39.5 fL 35.1-43.9 [facility] Erythrocyte distribution wid th ratioOrdered By: Jayson Bartlett on 07-24-2024 Erythrocyte distribution width (RBC) [Ratio] 14.8 % High 11.6-14.6 [facility] Erythrocyte distribution wid th standard deviationOrdered By: Jayson Bartlett on 07-24-2024 Erythrocyte distribution width (RBC) [Ratio] 39.5 fl 35.1-43.9 [facility] Estimation of creatinine juan aranceOrdered By: Jayson Bartlett on 07-24-2024 Estimated Creatinine Clearance Calc 72.10 ml/min 50-250 [facility] GFR/1.73 sq M.predicted davida g non-blacks MDRD (S/P/Bld) [Vol rate/Area]Ordered By: Jayson Bartlett on 07-24-2024 Estimated GFR (MDRD) Non-Af Amer 94 >60 [facility] Comment on above: mL/min/1.73m2 CKD-EP I Creatinine Equation (2020) Glomerular filtration rate ( GFR) estimation/1.73 sq m using serum, plasma, or whole bOrdered By: Jayson Bartlett on 07-24-2024 GFR/1.73 sq M.predicted among non-blacks MDRD (S/P/Bld) [Vol rate/Area] 94 mL/min/{1.73_m2} >60 [facility] Comment on above: mL/min/1.73m2 CKD-EP I Creatinine Equation (2020) Glucose Ql (U)Ordered By: Miguel Bartlett on 07-24-2024 Urine Glucose (UA) Normal mg/dl Normal [facility] Hematocrit Auto (Bld) [Volum e fraction]Ordered By: Jayson Bartlett on 07-24-2024 Hematocrit (Bld) [Volume fraction] 26.4 % Low 40-54 [facility] Hemoglobin measurementOrdere d By: Jayson Bartlett on 07-24-2024 Hemoglobin (Bld) [Mass/Vol] 9.4 g/dL Low 13.0-16.5 [facility] Immature granulocytes/100 WB C Auto (Bld)Ordered By: Jayson Bartlett on 07-24-2024 Immature granulocytes/100 WBC (Bld) 0.000 % 0.0-0.9 [facility] Comment on above: IG% - Immature Granu locytes (promyelocytes, myelocytes and metamyelocytes) > 1% indicates that a LEFT SHIFT is Present. Influenza virus A and B and SARS-CoV-2 (COVID-19) and Respiratory syncytial virus RNAOrdered By: Jayson Bartlett on 07-24-2024 SARS-CoV-2 (COVID-19) RNA ALICIA+probe Ql (Unsp spec) [facility] International normalized rat io (INR) calculationOrdered By: Jayson Bartlett on 07-24-2024 INR Coag (Bld) [Relative time] 1.1 {INR} [facility] Ketones Test strip Ql (U)Ord ered By: Jayson Bartlett on 07-24-2024 Ketones Ql (U) 15 mg/dl High Negative [facility] Laboratory - Chemistry and C hemistry - challengeOrdered By: Jayson Bartlett on 07-24-2024 AST [Catalytic activity/Vol] 12 U/L <38 [facility] Lactic Acidon 07-24-2024 Lactate [Moles/Vol] mmol/L Normal 0.0-2.0 [facility] Comment on above: Order Comment: Y Performed By: #### L 500.4050, L300.4310, L300.3900, L100.0100, M200.1000, L503.6005 ####[facility] [address], [place], [id number] Lactic acid measurementOrder ed By: Jayson Bartlett on 07-24-2024 Lactate [Moles/Vol] mmol/L 0.0-2.0 [facility] Lymphocytes Auto (Unsp spec) [#/Vol]Ordered By: Jayson Bartlett on 07-24-2024 Lymphocytes (Bld) [#/Vol] 0.16 10*3/uL Low 0.83-4.51 [facility] Lymphocytes/100 WBC Auto (Un sp spec)Ordered By: Jayson Bartlett on 07-24-2024 Lymphocytes/100 WBC (Bld) 13.1 % Low 19-41 [facility] M100.678on 07-24-2024 M100.678 Pending SARS-CoV-2 (COVID 19) Negative INFLUENZA A Negative INFLUENZA B Negative RSV PCR Negative Normal [facility] Comment on above: Performed By: #### L 400.0001, M100.678, M100.2200 ####[facility] [address] [place], [address] MCV (mean corpuscular volume ) determinationOrdered By: Jayson Bartlett on 07-24-2024 MCV (RBC) [Entitic vol] 81.2 fL 80-94 [facility] Macrocytes Ql (Bld)Ordered B y: Jayson Bartlett on 07-24-2024 Macrocytosis 1+ [facility] Macrocytes detectionOrdered By: Jayson Bartlett on 07-24-2024 Macrocytes Ql (Bld) 1+ [facility] Mean corpuscular hemoglobin (MCH) determinationOrdered By: Jayson Bartlett on 07-24-2024 MCH (RBC) [Entitic mass] 28.9 pg 27.0-32.0 [facility] Mean corpuscular hemoglobin concentration (MCHC) determinationOrdered By: Jayson Bartlett on 07-24-2024 MCHC (RBC) [Mass/Vol] 35.6 g/dL 32-36 [facility] Mean platelet volume determi nationOrdered By: Jayson Bartlett on 07-24-2024 Platelet mean volume (Bld) [Entitic vol] 9.7 fL 6.2-12.0 [facility] Microscopic analysis of urin e for red blood cells (RBC)Ordered By: Jayson Bartlett on 07-24-2024 Microscopic analysis of urine for red blood cells (RBC) 0 SEEN /hpf 0-5 [facility] Urine RBC 0 SEEN /hpf 0-5 [facility] Monocyte percentageOrdered B y: Jayson Bartlett on 07-24-2024 Monocytes/100 WBC (Bld) 25.4 % High 0-10 [facility] Mucus LM Ql (Urine sed)Order ed By: Jayson Bartlett on 07-24-2024 Mucus Ql (Urine sed) 1+ /hpf [facility] Neutrophil percentageOrdered By: Jayson Bartlett on 07-24-2024 Neutrophils/100 WBC (Bld) 59.9 % 47-70 [facility] Nitrite Test strip Ql (U)Ord ered By: Jayson Bartlett on 07-24-2024 Nitrite Ql (U) Negative Negative [facility] Nucleated red blood cell per centageOrdered By: Jayson Bartlett on 07-24-2024 Nucleated RBC/100 WBC (Bld) [Ratio] 0 % 0-5 [facility] Ovalocyte detectionOrdered B y: Jayson Bartlett on 07-24-2024 Ovalocytes LM Ql (Bld) 1+ [facility] Ovalocytes LM Ql (Bld)Ordere d By: Jayson Bartlett on 07-24-2024 Ovalocytes 1+ [facility] Partial Thromboplast Timeon 07-24-2024 aPTT Coag (Bld) [Time] 25.7 s Normal 24.1-36.2 [facility] Comment on above: Performed By: #### L 500.4050, L300.4310, L300.3900, L100.0100, M200.1000, L503.6005 ####[facility] [address] [place], [address] Pathologist review J Luis (Unsp spec) [Interp]Ordered By: Jayson Bartlett on 07-24-2024 Differential Pathologist's Review May [facility] Platelet countOrdered By: Miguel Bartlett on 07-24-2024 Platelets (Bld) [#/Vol] 94 10*3/uL Low 150-450 [facility] Platelet estimateOrdered By: Jayson Bartlett on 07-24-2024 Platelets LM Ql (Bld) MOD DEC ADEQ [facility] Platelets LM Ql (Bld)Ordered By: Jayson Bartlett on 07-24-2024 Platelet Estimate MOD DEC ADEQ [facility] Potassium (Unsp spec) [Mass/ Vol]Ordered By: Jayson Bartlett on 07-24-2024 Potassium [Moles/Vol] 3.5 mmol/L 3.3-5.1 [facility] Potassium measurement (mass/ volume)Ordered By: Jayson Bartlett on 07-24-2024 Potassium (Unsp spec) [Mass/Vol] 3.5 mmol/L 3.3-5.1 [facility] Protein Test strip Ql (U)Ord ered By: Jayson Bartlett on 07-24-2024 Protein Ql (U) 30 mg/dl High Negative [facility] Prothrombin Time w/INRon INR Coag (PPP) [Relative time] 1.1 {INR} Normal [facility] Comment on above: Performed By: #### L 500.4050, L300.4310, L300.3900, L100.0100, M200.1000, L503.6005 ####[facility] [address] [place], [address] PT Coag (PPP) [Time] 14.2 s Normal 11.7-14.9 [facility] Comment on above: Performed By: #### L 500.4050, L300.4310, L300.3900, L100.0100, M200.1000, L503.6005 ####[facility] [address] [place], [address] Prothrombin timeOrdered By: Jayson Bartlett on 07-24-2024 PT Coag (PPP) [Time] 14.2 s 11.7-14.9 [facility] RBC Auto (Bld) [#/Vol]Ordere d By: Jayson Bartlett on 07-24-2024 RBC (Bld) [#/Vol] 3.25 10*6/uL Low 4.6-6.2 [facility] Review by pathologistOrdered By: Jayson Bartlett on 07-24-2024 Pathologist review J Luis (Unsp spec) [Interp] Reviewed [facility] Comment on above: Previous reported re sult: Silva ace Edited by: MCKAY on 08/14/24:1331SEE REPORT IN PATIENT'S EMR AMENDED REPORT 08/14/24 1331 PATH REV previously reported as: August Serum creatinine measurement (mass/volume)Ordered By: Jayson Bartlett on 07-24-2024 Creatinine [Mass/Vol] 0.84 mg/dL 0.70-1.20 [facility] Serum globulin measurementOr dered By: Jayson Bartlett on 07-24-2024 Globulin (S) [Mass/Vol] 2.3 g/dL 2.2-4.2 [facility] Serum glucose measurement (m ass/volume)Ordered By: Jayson Bartlett on 07-24-2024 Glucose [Mass/Vol] 98 mg/dL 70-99 [facility] Serum or plasma alanine cheung otransferase (ALT) measurementOrdered By: Jayson Bartlett on 07-24-2024 ALT [Catalytic activity/Vol] 11 U/L <47 [facility] Serum or plasma albumin nicolasa urement (mass/volume)Ordered By: Jayson Bartlett on 07-24-2024 Albumin [Mass/Vol] 3.1 g/dL Low 3.4-4.8 [facility] Serum or plasma albumin/glob ulin mass ratioOrdered By: Jayson Bartlett on 07-24-2024 Albumin/Globulin [Mass ratio] 1.3 {ratio} 0.9-2.4 [facility] Serum or plasma alkaline daisy sphatase measurementOrdered By: Jayson Bartlett on 07-24-2024 ALP [Catalytic activity/Vol] 61 U/L 40-129 [facility] Serum or plasma calcium nicolasa urement (mass/volume)Ordered By: Jayson Bartlett on 07-24-2024 Calcium [Mass/Vol] 8.7 mg/dL 7.6-11.0 [facility] Serum or plasma urea nitroge n measurement (mass/volume)Ordered By: Jayson Bartlett on 07-24-2024 Urea nitrogen [Mass/Vol] 19 mg/dL 4-19 [facility] Sodium levelOrdered By: Jayson Bartlett on 07-24-2024 Sodium [Moles/Vol] 132 mmol/L Low 133-145 [facility] Squamous epithelial cells de tection in urine sediment by light microscopyOrdered By: Jayson Bartlett on 07-24-2024 Epithelial cells.squamous LM Ql (Urine sed) 0 SEEN /hpf 0-5 [facility] Total proteinOrdered By: Marianne Bartlett on 07-24-2024 Protein [Mass/Vol] 5.4 g/dL Low 5.9-8.4 [facility] Toxic granules LM Ql (Bld)Or dered By: Jayson Bartlett on 07-24-2024 Toxic Granulation 2. [facility] Toxic leukocyte granulation detectionOrdered By: Jayson Bartlett on 07-24-2024 Toxic granules LM Ql (Bld) 2. [facility] Urinalysis, Completeon 07-24 Mucus Ql (Urine sed) 1+ /hpf Normal [facility] Comment on above: Order Comment: CLEAN CATCH Performed By: #### L 400.0001, M100.678, M100.2200 ####[facility] [address] [place], [address] WBC 0-5 SEEN Normal 0-5 [facility] Comment on above: Order Comment: CLEAN CATCH Performed By: #### L 400.0001, M100.678, M100.2200 ####[facility] [address] [place], [address] BACTERIA 0 SEEN Normal None Seen [facility] Comment on above: Order Comment: CLEAN CATCH Performed By: #### L 400.0001, M100.678, M100.2200 ####[facility] [address] [place], [address] EPI,SQUAMOUS 0 SEEN Normal 0-5 [facility] Comment on above: Order Comment: CLEAN CATCH Performed By: #### L 400.0001, M100.678, M100.2200 ####[facility] [address] [place], [address] RBC 0 SEEN Normal 0-5 [facility] Comment on above: Order Comment: CLEAN CATCH Performed By: #### L 400.0001, M100.678, M100.2200 ####[facility] [address] [place], [address] Urine blood detectionOrdered By: Jayson Bartlett on 07-24-2024 Urine Occult Blood 10 /ul High Negative [facility] Urine clarityOrdered By: Marianne Bartlett on 07-24-2024 Clarity (U) Clear Clear [facility] Urine color determinationOrd ered By: Jayson Bartlett on 07-24-2024 Color (U) Yellow Yellow [facility] Urine cultureOrdered By: Marianne Bartlett on 07-24-2024 Bacteria identified Cx Nom (U) Culture exhibits no growth. [facility] Urine glucose detectionOrder ed By: Jayson Bartlett on 07-24-2024 Glucose Ql (U) Normal mg/dl Normal [facility] Urine leukocyte esterase det ection by dipstickOrdered By: Jayson Bartlett on 07-24-2024 Leukocyte esterase Test strip Ql (U) 25 /ul High Negative [facility] Urine pHOrdered By: Jayson salcido on 07-24-2024 pH (U) 5.0 [pH] 5.0 - 8.0 [facility] Urine sediment bacteria coun t by microscopy (number/high power field)Ordered By: Jayson Bartlett on 07-24-2024 Bacteria LM.HPF (Urine sed) [#/Area] 0 /[HPF] None Seen [facility] Urine specific gravity measu rementOrdered By: Jayson Bartlett on 07-24-2024 Specific gravity (U) [Rel density] 1.020 1.002-1.030 [facility] Urine urobilinogen measureme ntOrdered By: Jayson Bartlett on 07-24-2024 Urobilinogen Ql (U) Normal mg/dl Normal [facility] Urobilinogen Ql (U)Ordered B y: Jayson Bartlett on 07-24-2024 Urine Urobilinogen Normal mg/dl Normal [facility] White blood cell (WBC) count Ordered By: Jayson Bartlett on 07-24-2024 WBC (Bld) [#/Vol] 1.2 10*3/uL Low 4.4-11.0 [facility] Comment on above: CRITICAL VALUE CAMARENA Neyda SALINAS Barak Tillman.RESULTS READ BACK BY SAME. White blood cell countOrdere d By: Jayson Bartlett on 07-24-2024 Urine WBC 0-5 SEEN /hpf 0-5 [facility] White blood cell count 0-5 SEEN /hpf 0-5 [facility] aPTT Coag (PPP) [Time]Ordere d By: Jayson Bartlett on 07-24-2024 aPTT Coag (Bld) [Time] 25.7 s 24.1-36.2 [facility] Radiation Oncology Visiton 0 07-16-2024 Radiation Oncology Visit Normal [facility] Absolute neutrophil countOrd ered By: Donny Martinez on 07-15-2024 Neutrophils (Bld) [#/Vol] 3.2 10*3/uL 2.0-7.7 [facility] Anion gap in Serum or Plasma Ordered By: Donny Martinez on 07-15-2024 Anion gap [Moles/Vol] 10 mmol/L 5-15 [facility] Automated blood erythrocyte countOrdered By: Donny Martinez on 07-15-2024 RBC (Bld) [#/Vol] 4.44 10*6/uL Low 4.6-6.2 [facility] Comment on above: Performed By: #### L 100.0100, L501.5200, L500.4050 ####[facility] [address] [facility] [address] Automated blood hematocrit ( percentage)Ordered By: Donny Martinez on 07-15-2024 Hematocrit (Bld) [Volume fraction] 35.5 % Low 40-54 [facility] Comment on above: Performed By: #### L 100.0100, L501.5200, L500.4050 ####[facility] [address] [place], [address] Automated lymphocyte count a s percentage of total leukocytesOrdered By: Donny Martinez on 07-15-2024 Lymphocytes/100 WBC (Bld) 9.7 % Low 19-41 [facility] Comment on above: Performed By: #### L 100.0100, L501.5200, L500.4050 ####[facility] [address] [place], [address] BUN/creatinine ratioOrdered By: Donny Martinez on 07-15-2024 Urea nitrogen/Creatinine [Mass ratio] 16.9 mg/mg 10-20 [facility] Basophil percentageOrdered B y: Donny Martinez on 07-15-2024 Basophils/100 WBC (Bld) 0.6 % Normal 0-1 [facility] Comment on above: Performed By: #### L 100.0100, L501.5200, L500.4050 ####[facility] [address] [place], [address] Bilirubin, totalOrdered By: Donny Martinez on 07-15-2024 Bilirubin [Mass/Vol] 0.31 mg/dL 0.00-1.30 [facility] CBC W/Diff, Automatedon - Absolute Lymph 0.45 X10 3/uL Low 0.83-4.51 [facility] Comment on above: Performed By: #### L 100.0100, L501.5200, L500.4050 ####[facility] [address] [place], [address] Absolute Neut 3.2 X10 3/uL Normal 2.0-7.7 [facility] Comment on above: Performed By: #### L 100.0100, L501.5200, L500.4050 ####[facility] [address] [place], [address] IG% 0.400 Normal 0.0-0.9 [facility] Comment on above: Result Comment: IG% - Immature Granulocytes (promyelocytes, myelocytes andmetamyelocytes) > 1% indicates that a LEFT SHIFT is Present. Performed By: #### L 100.0100, L501.5200, L500.4050 ####[facility] [address] [place], [address] Nucleated RBC (Bld) [#/Vol] 0 10*3/uL Normal 0-5 [facility] Comment on above: Performed By: #### L 100.0100, L501.5200, L500.4050 ####[facility] [address] [place], [address] RDW SD 40.7 fl Normal 35.1-43.9 [facility] Comment on above: Performed By: #### L 100.0100, L501.5200, L500.4050 ####[facility] [address] [place], [address] Carbon dioxide, total [Moles /volume] in Central venous bloodOrdered By: Donny Martinez on 07-15-2024 CO2 [Moles/Vol] 20.7 mmol/L Low 21.0-32.0 [facility] Chloride assayOrdered By: Zonia Martinez on 07-15-2024 Chloride [Moles/Vol] 106 mmol/L 98-108 [facility] Comprehensive Metabolic Prof ilon 07-15-2024 Albumin [Mass/Vol] 3.9 g/dL Normal 3.4-4.8 [facility] Comment on above: Performed By: #### L 100.0100, L501.5200, L500.4050 ####[facility] [address] [place], [address] Albumin/Globulin [Mass ratio] 1.6 {ratio} Normal 0.9-2.4 [facility] Comment on above: Performed By: #### L 100.0100, L501.5200, L500.4050 ####[facility] [address] [place], [address] ALK PHOS 89 U/L Normal 40-129 [facility] Comment on above: Performed By: #### L 100.0100, L501.5200, L500.4050 ####[facility] [address] [place], [address] ALT [Catalytic activity/Vol] 15 U/L Normal <=46 [facility] Comment on above: Performed By: #### L 100.0100, L501.5200, L500.4050 ####[facility] [address] [place], [address] AST [Catalytic activity/Vol] 16 U/L Normal <=37 [facility] Comment on above: Performed By: #### L 100.0100, L501.5200, L500.4050 ####[facility] [address] [place], [address] Bilirubin [Mass/Vol] 0.31 mg/dL Normal 0.00-1.30 [facility] Comment on above: Performed By: #### L 100.0100, L501.5200, L500.4050 ####[facility] [address] [place], [address] BUN/CRE 16.9 RATIO Normal 10-20 [facility] Comment on above: Performed By: #### L 100.0100, L501.5200, L500.4050 ####[facility] [address] [place], [address] Calcium [Mass/Vol] 9.4 mg/dL Normal 7.6-11.0 [facility] Comment on above: Performed By: #### L 100.0100, L501.5200, L500.4050 ####[facility] [address] [place], [address] Chloride [Moles/Vol] 106 mmol/L Normal 98-108 [facility] Comment on above: Performed By: #### L 100.0100, L501.5200, L500.4050 ####[facility] [address] [place], [address] CO2 [Moles/Vol] 20.7 mmol/L Low 21.0-32.0 [facility] Comment on above: Performed By: #### L 100.0100, L501.5200, L500.4050 ####[facility] [address] [place], [address] Creatinine [Mass/Vol] 1.00 mg/dL Normal 0.70-1.20 [facility] Comment on above: Performed By: #### L 100.0100, L501.5200, L500.4050 ####[facility] [address] [place], [address] ECRCL 60.65 ml/min Normal 50-250 [facility] Comment on above: Performed By: #### L 100.0100, L501.5200, L500.4050 ####[facility] [address] [place], [address] GAP 10 Normal 5-15 [facility] Comment on above: Performed By: #### L 100.0100, L501.5200, L500.4050 ####[facility] [address] [place], [address] GFR/1.73 sq M.predicted among non-blacks MDRD (S/P/Bld) [Vol rate/Area] 82 mL/min/{1.73_m2} Normal >60 [facility] Comment on above: Result Comment: mL/m in/1.73m2 CKD-EPI Creatinine Equation (2020) Performed By: #### L 100.0100, L501.5200, L500.4050 ####[facility] [address] [place], [address] Globulin (S) [Mass/Vol] 2.3 g/dL Normal 2.2-4.2 [facility] Comment on above: Performed By: #### L 100.0100, L501.5200, L500.4050 ####[facility] [address] [place], [address] Glucose [Mass/Vol] 93 mg/dL Normal 70-99 [facility] Comment on above: Performed By: #### L 100.0100, L501.5200, L500.4050 ####[facility] [address] [place], [address] Potassium [Moles/Vol] 4.3 mmol/L Normal 3.3-5.1 [facility] Comment on above: Performed By: #### L 100.0100, L501.5200, L500.4050 ####[facility] [address] [place], [address] Sodium [Moles/Vol] 137 mmol/L Normal 133-145 [facility] Comment on above: Performed By: #### L 100.0100, L501.5200, L500.4050 ####[facility] [address] [place], [address] T PROT 6.2 g/dL Normal 5.9-8.4 [facility] Comment on above: Performed By: #### L 100.0100, L501.5200, L500.4050 ####[facility] [address] [place], [address] Urea nitrogen [Mass/Vol] 17 mg/dL Normal 4-19 [facility] Comment on above: Performed By: #### L 100.0100, L501.5200, L500.4050 ####[facility] [address] [place], [address] Eosinophil percentageOrdered By: Donny Martinez on 07-15-2024 Eosinophils/100 WBC (Bld) 6.9 % High 0-5 [facility] Comment on above: Performed By: #### L 100.0100, L501.5200, L500.4050 ####[facility] [address] [place], [address] Erythrocyte distribution wid th (RBC) [Ratio]Ordered By: Donny Martinez on 07-15-2024 Erythrocyte distribution width (RBC) [Entitic vol] 40.7 fL 35.1-43.9 [facility] Erythrocyte distribution wid th ratioOrdered By: Donny Annantonia on 07-15-2024 Erythrocyte distribution width (RBC) [Ratio] 14.5 % Normal 11.6-14.6 [facility] Comment on above: Performed By: #### L 100.0100, L501.5200, L500.4050 ####[facility] [address] [place], [place], [address] Estimation of creatinine juan aranceOrdered By: Donny Martinez on 07-15-2024 Estimated Creatinine Clearance Calc 60.65 ml/min 50-250 [facility] GFR/1.73 sq M.predicted davida g non-blacks MDRD (S/P/Bld) [Vol rate/Area]Ordered By: Donny Martinez on 07-15-2024 Estimated GFR (MDRD) Non-Af Amer 82 >60 [facility] Comment on above: mL/min/1.73m2 CKD-EP I Creatinine Equation (2020) Hemoglobin measurementOrdere d By: Donny Juan on 07-15-2024 Hemoglobin (Bld) [Mass/Vol] 12.4 g/dL Low 13.0-16.5 [facility] Comment on above: Performed By: #### L 100.0100, L501.5200, L500.4050 ####[facility] [address] [place], [place], [id number] Immature granulocytes/100 WB C Auto (Bld)Ordered By: Donny Martinez on 07-15-2024 Immature granulocytes/100 WBC (Bld) 0.400 % 0.0-0.9 [facility] Comment on above: IG% - Immature Granu locytes (promyelocytes, myelocytes and metamyelocytes) > 1% indicates that a LEFT SHIFT is Present. Laboratory - Chemistry and C hemistry - challengeOrdered By: Donny Martinez on 07-15-2024 AST [Catalytic activity/Vol] 16 U/L <38 [facility] Lymphocytes Auto (Unsp spec) [#/Vol]Ordered By: Donny Martinez on 07-15-2024 Lymphocytes (Bld) [#/Vol] 0.45 10*3/uL Low 0.83-4.51 [facility] MCV (mean corpuscular volume ) determinationOrdered By: Donny Martinez on 07-15-2024 MCV (RBC) [Entitic vol] 80.0 fL Normal 80-94 [facility] Comment on above: Performed By: #### L 100.0100, L501.5200, L500.4050 ####[facility] [address] [place], [address] Magnesiumon 07-15-2024 Magnesium [Mass/Vol] 2.1 mg/dL Normal 1.5-2.2 [facility] Comment on above: Performed By: #### L 100.0100, L501.5200, L500.4050 ####[facility] [address] [place], [address] Magnesium (Unsp spec) [Mass/ Vol]Ordered By: Donny Martinez on 07-15-2024 Magnesium [Mass/Vol] 2.1 mg/dL 1.5-2.2 [facility] Mean corpuscular hemoglobin (MCH) determinationOrdered By: Donny Martinez on 07-15-2024 MCH (RBC) [Entitic mass] 27.9 pg Normal 27.0-32.0 [facility] Comment on above: Performed By: #### L 100.0100, L501.5200, L500.4050 ####[facility] [address] [place], [address] Mean corpuscular hemoglobin concentration (MCHC) determinationOrdered By: Donny Martinez on 07-15-2024 MCHC (RBC) [Mass/Vol] 34.9 g/dL Normal 32-36 [facility] Comment on above: Performed By: #### L 100.0100, L501.5200, L500.4050 ####[facility] [address] [place], [address] Mean platelet volume determi nationOrdered By: Donny Martinez on 07-15-2024 Platelet mean volume (Bld) [Entitic vol] 8.9 fL Normal 6.2-12.0 [facility] Comment on above: Performed By: #### L 100.0100, L501.5200, L500.4050 ####[facility] [address] [place], [address] Monocyte percentageOrdered B y: Donny Martinez on 07-15-2024 Monocytes/100 WBC (Bld) 12.8 % High 0-10 [facility] Comment on above: Performed By: #### L 100.0100, L501.5200, L500.4050 ####[facility] [address] [place], [address] Neutrophil percentageOrdered By: Donny Martinez on 07-15-2024 Neutrophils/100 WBC (Bld) 69.6 % Normal 47-70 [facility] Comment on above: Performed By: #### L 100.0100, L501.5200, L500.4050 ####[facility] [address] [place], [address] Nucleated red blood cell per centageOrdered By: Donny Martinez on 07-15-2024 Nucleated RBC/100 WBC (Bld) [Ratio] 0 % 0-5 [facility] Oncology Visit Reporton 06-17 Oncology Visit Report Normal [facility] Platelet countOrdered By: Zonia Martinez on 07-15-2024 Platelets (Bld) [#/Vol] 141 10*3/uL Low 150-450 [facility] Comment on above: Performed By: #### L 100.0100, L501.5200, L500.4050 ####[facility] [address] [place], [address] Potassium (Unsp spec) [Mass/ Vol]Ordered By: Donny Martinez on 07-15-2024 Potassium [Moles/Vol] 4.3 mmol/L 3.3-5.1 [facility] Serum creatinine measurement (mass/volume)Ordered By: Donny Martinez on 07-15-2024 Creatinine [Mass/Vol] 1.00 mg/dL 0.70-1.20 [facility] Serum globulin measurementOr dered By: Donny Martinez on 07-15-2024 Globulin (S) [Mass/Vol] 2.3 g/dL 2.2-4.2 [facility] Serum glucose measurement (m ass/volume)Ordered By: Donny Martinez on 07-15-2024 Glucose [Mass/Vol] 93 mg/dL 70-99 [facility] Serum or plasma alanine cheung otransferase (ALT) measurementOrdered By: Donny Martinez on 07-15-2024 ALT [Catalytic activity/Vol] 15 U/L <47 [facility] Serum or plasma albumin nicolasa urement (mass/volume)Ordered By: Donny Martinez on 07-15-2024 Albumin [Mass/Vol] 3.9 g/dL 3.4-4.8 [facility] Serum or plasma albumin/glob ulin mass ratioOrdered By: Donny Martinez on 07-15-2024 Albumin/Globulin [Mass ratio] 1.6 {ratio} 0.9-2.4 [facility] Serum or plasma alkaline daisy sphatase measurementOrdered By: Donny Martinez on 07-15-2024 ALP [Catalytic activity/Vol] 89 U/L 40-129 [facility] Serum or plasma calcium nicolasa urement (mass/volume)Ordered By: Donny Martinez on 07-15-2024 Calcium [Mass/Vol] 9.4 mg/dL 7.6-11.0 [facility] Serum or plasma urea nitroge n measurement (mass/volume)Ordered By: Donny Martinez on 07-15-2024 Urea nitrogen [Mass/Vol] 17 mg/dL 4-19 [facility] Sodium levelOrdered By: Rudy Martinez on 07-15-2024 Sodium [Moles/Vol] 137 mmol/L 133-145 [facility] Total proteinOrdered By: Mohsen Martinez on 07-15-2024 Protein [Mass/Vol] 6.2 g/dL 5.9-8.4 [facility] White blood cell (WBC) count Ordered By: Donny Martinez on 07-15-2024 WBC (Bld) [#/Vol] 4.6 10*3/uL Normal 4.4-11.0 [facility] Comment on above: Performed By: #### L 100.0100, L501.5200, L500.4050 ####[facility] [address] [place], [address] Radiation Oncology Visiton 0 07-11-2024 Radiation Oncology Visit Normal [facility] CBC W/Diff, Automatedon - Absolute Lymph 0.53 X10 3/uL Low 0.83-4.51 [facility] Comment on above: Performed By: #### L 501.5200, L100.0100, L500.4050 ####[facility] [address] [place], [address] Absolute Neut 3.8 X10 3/uL Normal 2.0-7.7 [facility] Comment on above: Performed By: #### L 501.5200, L100.0100, L500.4050 ####[facility] [address] [place], [address] Basophils/100 WBC (Bld) 0.4 % Normal 0-1 [facility] Comment on above: Performed By: #### L 501.5200, L100.0100, L500.4050 ####[facility] [address] [place], [address] Eosinophils/100 WBC (Bld) 3.0 % Normal 0-5 [facility] Comment on above: Performed By: #### L 501.5200, L100.0100, L500.4050 ####[facility] [address] [place], [address] Erythrocyte distribution width (RBC) [Ratio] 14.6 % Normal 11.6-14.6 [facility] Comment on above: Performed By: #### L 501.5200, L100.0100, L500.4050 ####[facility] [address] [place], [address] Hematocrit (Bld) [Volume fraction] 37.4 % Low 40-54 [facility] Comment on above: Performed By: #### L 501.5200, L100.0100, L500.4050 ####[facility] [address] [place], [address] Hemoglobin (Bld) [Mass/Vol] 13.0 g/dL Normal 13.0-16.5 [facility] Comment on above: Performed By: #### L 501.5200, L100.0100, L500.4050 ####[facility] [address] [place], [address] IG% 0.200 Normal 0.0-0.9 [facility] Comment on above: Result Comment: IG% - Immature Granulocytes (promyelocytes, myelocytes andmetamyelocytes) > 1% indicates that a LEFT SHIFT is Present. Performed By: #### L 501.5200, L100.0100, L500.4050 ####[facility] [address] [place], [address] Lymphocytes/100 WBC (Bld) 10.8 % Low 19-41 [facility] Comment on above: Performed By: #### L 501.5200, L100.0100, L500.4050 ####[facility] [address] [place], [address] MCH (RBC) [Entitic mass] 28.0 pg Normal 27.0-32.0 [facility] Comment on above: Performed By: #### L 501.5200, L100.0100, L500.4050 ####[facility] [address] [place], [address] MCHC (RBC) [Mass/Vol] 34.8 g/dL Normal 32-36 [facility] Comment on above: Performed By: #### L 501.5200, L100.0100, L500.4050 ####[facility] [address] [place], [address] MCV (RBC) [Entitic vol] 80.4 fL Normal 80-94 [facility] Comment on above: Performed By: #### L 501.5200, L100.0100, L500.4050 ####[facility] [address] [place], [address] Monocytes/100 WBC (Bld) 9.3 % Normal 0-10 [facility] Comment on above: Performed By: #### L 501.5200, L100.0100, L500.4050 ####[facility] [address] [place], [address] Neutrophils/100 WBC (Bld) 76.3 % High 47-70 [facility] Comment on above: Performed By: #### L 501.5200, L100.0100, L500.4050 ####[facility] [address] [place], [address] Nucleated RBC (Bld) [#/Vol] 0 10*3/uL Normal 0-5 [facility] Comment on above: Performed By: #### L 501.5200, L100.0100, L500.4050 ####[facility] [address] [place], [address] Platelet mean volume (Bld) [Entitic vol] 9.0 fL Normal 6.2-12.0 [facility] Comment on above: Performed By: #### L 501.5200, L100.0100, L500.4050 ####[facility] [id number] [place], [address] Platelets (Bld) [#/Vol] 145 10*3/uL Low 150-450 [facility] Comment on above: Performed By: #### L 501.5200, L100.0100, L500.4050 ####[facility] [id number] [place], [address] RBC (Bld) [#/Vol] 4.65 10*6/uL Normal 4.6-6.2 [facility] Comment on above: Performed By: #### L 501.5200, L100.0100, L500.4050 ####[facility] [address] [place], [address] RDW SD 42.2 fl Normal 35.1-43.9 [facility] Comment on above: Performed By: #### L 501.5200, L100.0100, L500.4050 ####[facility] [address] [place], [address] WBC (Bld) [#/Vol] 4.9 10*3/uL Normal 4.4-11.0 [facility] Comment on above: Performed By: #### L 501.5200, L100.0100, L500.4050 ####[facility] [address] [place], [address] Absolute Neut Normal 2.0-7.7 [facility] Comment on above: Result Comment: DUPL ICATE ORDER Performed By: #### L 100.0100, L500.4050 ####[facility] [address] [place], [address] HCT Normal 40-54 [facility] Comment on above: Result Comment: DUPL ICATE ORDER Performed By: #### L 100.0100, L500.4050 ####[facility] [address] [place], [address] HGB Normal 13.0-16.5 [facility] Comment on above: Result Comment: DUPL ICATE ORDER Performed By: #### L 100.0100, L500.4050 ####[facility] [address] [place], [address] MCH Normal 27.0-32.0 [facility] Comment on above: Result Comment: DUPL ICATE ORDER Performed By: #### L 100.0100, L500.4050 ####[facility] [address] [place], [address] MCHC Normal 32-36 [facility] Comment on above: Result Comment: DUPL ICATE ORDER Performed By: #### L 100.0100, L500.4050 ####[facility] [address] [place], [address] MCV Normal 80-94 [facility] Comment on above: Result Comment: DUPL ICATE ORDER Performed By: #### L 100.0100, L500.4050 ####[facility] [address] [place], [address] NEUT% Normal 47-70 [facility] Comment on above: Result Comment: DUPL ICATE ORDER Performed By: #### L 100.0100, L500.4050 ####[facility] [address] [place], [address] PLT Normal 150-450 [facility] Comment on above: Result Comment: DUPL ICATE ORDER Performed By: #### L 100.0100, L500.4050 ####[facility] [address] [place], [address] RBC Normal 4.6-6.2 [facility] Comment on above: Result Comment: DUPL ICATE ORDER Performed By: #### L 100.0100, L500.4050 ####[facility] [address] [place], [address] RDW CV Normal 11.6-14.6 [facility] Comment on above: Result Comment: DUPL ICATE ORDER Performed By: #### L 100.0100, L500.4050 ####[facility] [address] [place], [address] RDW SD Normal 35.1-43.9 [facility] Comment on above: Result Comment: DUPL ICATE ORDER Performed By: #### L 100.0100, L500.4050 ####[facility] [address] [place], [address] WBC Normal 4.4-11.0 [facility] Comment on above: Result Comment: DUPL ICATE ORDER Performed By: #### L 100.0100, L500.4050 ####[facility] [address] [place], [address] Comprehensive Metabolic Prof ilon 07-08-2024 Albumin [Mass/Vol] 3.9 g/dL Normal 3.4-4.8 [facility] Comment on above: Performed By: #### L 501.5200, L100.0100, L500.4050 ####[facility] [address] [place], [address] Albumin/Globulin [Mass ratio] 1.7 {ratio} Normal 0.9-2.4 [facility] Comment on above: Performed By: #### L 501.5200, L100.0100, L500.4050 ####[facility] [address] [place], [address] ALK PHOS 81 U/L Normal 40-129 [facility] Comment on above: Performed By: #### L 501.5200, L100.0100, L500.4050 ####[facility] [address] [place], [address] ALT [Catalytic activity/Vol] 21 U/L Normal <=46 [facility] Comment on above: Performed By: #### L 501.5200, L100.0100, L500.4050 ####[facility] [address] [place], [address] AST [Catalytic activity/Vol] 18 U/L Normal <=37 [facility] Comment on above: Performed By: #### L 501.5200, L100.0100, L500.4050 ####[facility] [address] [place], [address] Bilirubin [Mass/Vol] 0.49 mg/dL Normal 0.00-1.30 [facility] Comment on above: Performed By: #### L 501.5200, L100.0100, L500.4050 ####[facility] [address] [place], [address] BUN/CRE 19.3 RATIO Normal 10-20 [facility] Comment on above: Performed By: #### L 501.5200, L100.0100, L500.4050 ####[facility] [address] [place], [address] Calcium [Mass/Vol] 9.6 mg/dL Normal 7.6-11.0 [facility] Comment on above: Performed By: #### L 501.5200, L100.0100, L500.4050 ####[facility] [address] [place], [address] Chloride [Moles/Vol] 104 mmol/L Normal 98-108 [facility] Comment on above: Performed By: #### L 501.5200, L100.0100, L500.4050 ####[facility] [address] [place], [address] CO2 [Moles/Vol] 23.9 mmol/L Normal 21.0-32.0 [facility] Comment on above: Performed By: #### L 501.5200, L100.0100, L500.4050 ####[facility] [address] [place], [address] Creatinine [Mass/Vol] 1.00 mg/dL Normal 0.70-1.20 [facility] Comment on above: Performed By: #### L 501.5200, L100.0100, L500.4050 ####[facility] [address] [place], [address] ECRCL 60.65 ml/min Normal 50-250 [facility] Comment on above: Performed By: #### L 501.5200, L100.0100, L500.4050 ####[facility] [address] [place], [address] GAP 11 Normal 5-15 [facility] Comment on above: Performed By: #### L 501.5200, L100.0100, L500.4050 ####[facility] [address] [place], [address] GFR/1.73 sq M.predicted among non-blacks MDRD (S/P/Bld) [Vol rate/Area] 81 mL/min/{1.73_m2} Normal >60 [facility] Comment on above: Result Comment: mL/m in/1.73m2 CKD-EPI Creatinine Equation (2020) Performed By: #### L 501.5200, L100.0100, L500.4050 ####[facility] [address] [place], [address] Globulin (S) [Mass/Vol] 2.3 g/dL Normal 2.2-4.2 [facility] Comment on above: Performed By: #### L 501.5200, L100.0100, L500.4050 ####[facility] [address] [place], [address] Glucose [Mass/Vol] 90 mg/dL Normal 70-99 [facility] Comment on above: Performed By: #### L 501.5200, L100.0100, L500.4050 ####[facility] [address] [place], [address] Potassium [Moles/Vol] 3.9 mmol/L Normal 3.3-5.1 [facility] Comment on above: Performed By: #### L 501.5200, L100.0100, L500.4050 ####[facility] [address] [place], [address] Sodium [Moles/Vol] 138 mmol/L Normal 133-145 [facility] Comment on above: Performed By: #### L 501.5200, L100.0100, L500.4050 ####[facility] [address] [place], [address] T PROT 6.2 g/dL Normal 5.9-8.4 [facility] Comment on above: Performed By: #### L 501.5200, L100.0100, L500.4050 ####[facility] [address] [place], [address] Urea nitrogen [Mass/Vol] 19 mg/dL Normal 4-19 [facility] Comment on above: Performed By: #### L 501.5200, L100.0100, L500.4050 ####[facility] [address] [place], [address] ALB Normal 3.4-4.8 [facility] Comment on above: Result Comment: DUPL ICATE ORDER Performed By: #### L 100.0100, L500.4050 ####[facility] [address] [place], [address] ALK PHOS Normal 40-129 [facility] Comment on above: Result Comment: DUPL ICATE ORDER Performed By: #### L 100.0100, L500.4050 ####[facility] [address] [place], [address] ALT Normal <=46 [facility] Comment on above: Result Comment: DUPL ICATE ORDER Performed By: #### L 100.0100, L500.4050 ####[facility] [address] [place], [address] AST Normal <=37 [facility] Comment on above: Result Comment: DUPL ICATE ORDER Performed By: #### L 100.0100, L500.4050 ####[facility] [address] [place], [address] BUN Normal 4-19 [facility] Comment on above: Result Comment: DUPL ICATE ORDER Performed By: #### L 100.0100, L500.4050 ####[facility] [address] [place], [address] BUN/CRE Normal 10-20 [facility] Comment on above: Result Comment: DUPL ICATE ORDER Performed By: #### L 100.0100, L500.4050 ####[facility] [address] [place], [address] Calcium Normal 7.6-11.0 [facility] Comment on above: Result Comment: DUPL ICATE ORDER Performed By: #### L 100.0100, L500.4050 ####[facility] [address] [place], [address] CL Normal 98-108 [facility] Comment on above: Result Comment: DUPL ICATE ORDER Performed By: #### L 100.0100, L500.4050 ####[facility] [address] [place], [address] CO2 Normal 21.0-32.0 [facility] Comment on above: Result Comment: DUPL ICATE ORDER Performed By: #### L 100.0100, L500.4050 ####[facility] [address] [place], [address] CREAT,SERUM Normal 0.70-1.20 [facility] Comment on above: Result Comment: DUPL ICATE ORDER Performed By: #### L 100.0100, L500.4050 ####[facility] [address] [place], [address] eGFR Normal >60 [facility] Comment on above: Result Comment: DUPL ICATE ORDER Performed By: #### L 100.0100, L500.4050 ####[facility] [address] [place], [address] GAP Normal 5-15 [facility] Comment on above: Result Comment: DUPL ICATE ORDER Performed By: #### L 100.0100, L500.4050 ####[facility] [address] [place], [address] GLU Normal 70-99 [facility] Comment on above: Result Comment: DUPL ICATE ORDER Performed By: #### L 100.0100, L500.4050 ####[facility] [address] [place], [address] Potassium Normal 3.3-5.1 [facility] Comment on above: Result Comment: DUPL ICATE ORDER Performed By: #### L 100.0100, L500.4050 ####[facility] [address] [place], [address] T BILI Normal 0.00-1.30 [facility] Comment on above: Result Comment: DUPL ICATE ORDER Performed By: #### L 100.0100, L500.4050 ####[facility] [address] [place], [address] T PROT Normal 5.9-8.4 [facility] Comment on above: Result Comment: DUPL ICATE ORDER Performed By: #### L 100.0100, L500.4050 ####[facility] [address] [place], [address] Comprehensive Metabolic Profil Normal 133-145 [facility] Comment on above: Result Comment: DUPL ICATE ORDER Performed By: #### L 100.0100, L500.4050 ####[facility] [address] [place], [address] Magnesiumon - Magnesium [Mass/Vol] 2.2 mg/dL Normal 1.5-2.2 [facility] Comment on above: Performed By: #### L 501.5200, L100.0100, L500.4050 ####[facility] [address] [place], [address] Oncology Visit Reporton - Oncology Visit Report Normal [facility] Radiation Oncology Visiton 0 - Radiation Oncology Visit Normal [facility] CBC W/Diff, Automatedon - Absolute Lymph 0.68 X10 3/uL Low 0.83-4.51 [facility] Comment on above: Performed By: #### L 501.5200, L500.4050, L100.0100 ####[facility] [address] [place], [address] Absolute Neut 2.8 X10 3/uL Normal 2.0-7.7 [facility] Comment on above: Performed By: #### L 501.5200, L500.4050, L100.0100 ####[facility] [address] [place], [address] Basophils/100 WBC (Bld) 0.5 % Normal 0-1 [facility] Comment on above: Performed By: #### L 501.5200, L500.4050, L100.0100 ####[facility] [address] [place], [address] Eosinophils/100 WBC (Bld) 5.0 % Normal 0-5 [facility] Comment on above: Performed By: #### L 501.5200, L500.4050, L100.0100 ####[facility] [address] [place], [address] Erythrocyte distribution width (RBC) [Ratio] 14.9 % High 11.6-14.6 [facility] Comment on above: Performed By: #### L 501.5200, L500.4050, L100.0100 ####[facility] [address] [place], [address] Hematocrit (Bld) [Volume fraction] 38.5 % Low 40-54 [facility] Comment on above: Performed By: #### L 501.5200, L500.4050, L100.0100 ####[facility] [address] [place], [address] Hemoglobin (Bld) [Mass/Vol] 12.9 g/dL Low 13.0-16.5 [facility] Comment on above: Performed By: #### L 501.5200, L500.4050, L100.0100 ####[facility] [address] [place], [address] IG% 0.500 Normal 0.0-0.9 [facility] Comment on above: Result Comment: IG% - Immature Granulocytes (promyelocytes, myelocytes andmetamyelocytes) > 1% indicates that a LEFT SHIFT is Present. Performed By: #### L 501.5200, L500.4050, L100.0100 ####[facility] [address] [place], [address] Lymphocytes/100 WBC (Bld) 16.9 % Low 19-41 [facility] Comment on above: Performed By: #### L 501.5200, L500.4050, L100.0100 ####[facility] [address] [place], [address] MCH (RBC) [Entitic mass] 27.3 pg Normal 27.0-32.0 [facility] Comment on above: Performed By: #### L 501.5200, L500.4050, L100.0100 ####[facility] [address] [place], [address] MCHC (RBC) [Mass/Vol] 33.5 g/dL Normal 32-36 [facility] Comment on above: Performed By: #### L 501.5200, L500.4050, L100.0100 ####[facility] [address] [place], [address] MCV (RBC) [Entitic vol] 81.6 fL Normal 80-94 [facility] Comment on above: Performed By: #### L 501.5200, L500.4050, L100.0100 ####[facility] [address] [place], [address] Monocytes/100 WBC (Bld) 8.7 % Normal 0-10 [facility] Comment on above: Performed By: #### L 501.5200, L500.4050, L100.0100 ####[facility] [address] [place], [address] Neutrophils/100 WBC (Bld) 68.4 % Normal 47-70 [facility] Comment on above: Performed By: #### L 501.5200, L500.4050, L100.0100 ####[facility] [address] [place], [address] Nucleated RBC (Bld) [#/Vol] 0 10*3/uL Normal 0-5 [facility] Comment on above: Performed By: #### L 501.5200, L500.4050, L100.0100 ####[facility] [address] [place], [address] Platelet mean volume (Bld) [Entitic vol] 9.5 fL Normal 6.2-12.0 [facility] Comment on above: Performed By: #### L 501.5200, L500.4050, L100.0100 ####[facility] [address] [place], [address] Platelets (Bld) [#/Vol] 180 10*3/uL Normal 150-450 [facility] Comment on above: Performed By: #### L 501.5200, L500.4050, L100.0100 ####[facility] [address] [place], [address] RBC (Bld) [#/Vol] 4.72 10*6/uL Normal 4.6-6.2 [facility] Comment on above: Performed By: #### L 501.5200, L500.4050, L100.0100 ####[facility] [address] [place], [address] RDW SD 44.7 fl High 35.1-43.9 [facility] Comment on above: Performed By: #### L 501.5200, L500.4050, L100.0100 ####[facility] [address] [place], [address] WBC (Bld) [#/Vol] 4.0 10*3/uL Low 4.4-11.0 [facility] Comment on above: Performed By: #### L 501.5200, L500.4050, L100.0100 ####[facility] [address] [place], [address] Comprehensive Metabolic Prof ilon 07-01-2024 BUN/CRE 18.9 RATIO Normal 10-20 [facility] Comment on above: Performed By: #### L 501.5200, L500.4050, L100.0100 ####[facility] [address] [place], [address] Urea nitrogen [Mass/Vol] 17 mg/dL Normal 4-19 [facility] Comment on above: Performed By: #### L 501.5200, L500.4050, L100.0100 ####[facility] [address] [place], [address] Magnesiumon 07-01-2024 Magnesium [Mass/Vol] 2.3 mg/dL High 1.5-2.2 [facility] Comment on above: Performed By: #### L 501.5200, L500.4050, L100.0100 ####[facility] [address] [place], [address] Oncology Visit Reporton 06-15 Oncology Visit Report Normal [facility] Radiation Oncology Visiton 0 - Radiation Oncology Visit Normal [facility] CBC W/Diff, Automatedon 06-15-2024 Absolute Lymph 1.02 X10 3/uL Normal 0.83-4.51 [facility] Comment on above: Performed By: #### L 501.5200, L100.0100, L500.4050 ####[facility] [address] [place], [address] Absolute Neut 3.1 X10 3/uL Normal 2.0-7.7 [facility] Comment on above: Performed By: #### L 501.5200, L100.0100, L500.4050 ####[facility] [address] [place], [address] Basophils/100 WBC (Bld) 0.6 % Normal 0-1 [facility] Comment on above: Performed By: #### L 501.5200, L100.0100, L500.4050 ####[facility] [address] [place], [address] Eosinophils/100 WBC (Bld) 2.3 % Normal 0-5 [facility] Comment on above: Performed By: #### L 501.5200, L100.0100, L500.4050 ####[facility] [address] [place], [address] Erythrocyte distribution width (RBC) [Ratio] 15.7 % High 11.6-14.6 [facility] Comment on above: Performed By: #### L 501.5200, L100.0100, L500.4050 ####[facility] [address] [place], [address] Hematocrit (Bld) [Volume fraction] 41.3 % Normal 40-54 [facility] Comment on above: Performed By: #### L 501.5200, L100.0100, L500.4050 ####[facility] [address] [place], [address] Hemoglobin (Bld) [Mass/Vol] 13.8 g/dL Normal 13.0-16.5 [facility] Comment on above: Performed By: #### L 501.5200, L100.0100, L500.4050 ####[facility] [address] [place], [address] IG% 0.200 Normal 0.0-0.9 [facility] Comment on above: Result Comment: IG% - Immature Granulocytes (promyelocytes, myelocytes andmetamyelocytes) > 1% indicates that a LEFT SHIFT is Present. Performed By: #### L 501.5200, L100.0100, L500.4050 ####[facility] [address] [place], [address] Lymphocytes/100 WBC (Bld) 21.6 % Normal 19-41 [facility] Comment on above: Performed By: #### L 501.5200, L100.0100, L500.4050 ####[facility] [address] [place], [address] MCH (RBC) [Entitic mass] 27.1 pg Normal 27.0-32.0 [facility] Comment on above: Performed By: #### L 501.5200, L100.0100, L500.4050 ####[facility] [address] [place], [address] MCHC (RBC) [Mass/Vol] 33.4 g/dL Normal 32-36 [facility] Comment on above: Performed By: #### L 501.5200, L100.0100, L500.4050 ####[facility] [address] [place], [address] MCV (RBC) [Entitic vol] 81.0 fL Normal 80-94 [facility] Comment on above: Performed By: #### L 501.5200, L100.0100, L500.4050 ####[facility] [address] [place], [address] Monocytes/100 WBC (Bld) 9.3 % Normal 0-10 [facility] Comment on above: Performed By: #### L 501.5200, L100.0100, L500.4050 ####[facility] [address] [place], [address] Neutrophils/100 WBC (Bld) 66.0 % Normal 47-70 [facility] Comment on above: Performed By: #### L 501.5200, L100.0100, L500.4050 ####[facility] [address] [place], [address] Nucleated RBC (Bld) [#/Vol] 0 10*3/uL Normal 0-5 [facility] Comment on above: Performed By: #### L 501.5200, L100.0100, L500.4050 ####[facility] [address] [place], [address] Platelet mean volume (Bld) [Entitic vol] 9.4 fL Normal 6.2-12.0 [facility] Comment on above: Performed By: #### L 501.5200, L100.0100, L500.4050 ####[facility] [address] [place], [address] Platelets (Bld) [#/Vol] 190 10*3/uL Normal 150-450 [facility] Comment on above: Performed By: #### L 501.5200, L100.0100, L500.4050 ####[facility] [address] [place], [address] RBC (Bld) [#/Vol] 5.10 10*6/uL Normal 4.6-6.2 [facility] Comment on above: Performed By: #### L 501.5200, L100.0100, L500.4050 ####[facility] [address] [place], [address] RDW SD 46.0 fl High 35.1-43.9 [facility] Comment on above: Performed By: #### L 501.5200, L100.0100, L500.4050 ####[facility] [address] [place], [address] WBC (Bld) [#/Vol] 4.7 10*3/uL Normal 4.4-11.0 [facility] Comment on above: Performed By: #### L 501.5200, L100.0100, L500.4050 ####[facility] [address] [place], [address] Absolute Neut Normal 2.0-7.7 [facility] Comment on above: Result Comment: DUPL ICATED TX PLAN ALREADY IN Performed By: #### L 100.0100, L500.4050 ####[facility] [address] [place], [address] HCT Normal 40-54 [facility] Comment on above: Result Comment: DUPL ICATED TX PLAN ALREADY IN Performed By: #### L 100.0100, L500.4050 ####[facility] [address] [place], [address] HGB Normal 13.0-16.5 [facility] Comment on above: Result Comment: DUPL ICATED TX PLAN ALREADY IN Performed By: #### L 100.0100, L500.4050 ####[facility] [address] [place], [address] MCH Normal 27.0-32.0 [facility] Comment on above: Result Comment: DUPL ICATED TX PLAN ALREADY IN Performed By: #### L 100.0100, L500.4050 ####[facility] [address] [place], [address] MCHC Normal 32-36 [facility] Comment on above: Result Comment: DUPL ICATED TX PLAN ALREADY IN Performed By: #### L 100.0100, L500.4050 ####[facility] [address] [place], [address] MCV Normal 80-94 [facility] Comment on above: Result Comment: DUPL ICATED TX PLAN ALREADY IN Performed By: #### L 100.0100, L500.4050 ####[facility] [address] [place], [address] NEUT% Normal 47-70 [facility] Comment on above: Result Comment: DUPL ICATED TX PLAN ALREADY IN Performed By: #### L 100.0100, L500.4050 ####[facility] [address] [place], [address] PLT Normal 150-450 [facility] Comment on above: Result Comment: DUPL ICATED TX PLAN ALREADY IN Performed By: #### L 100.0100, L500.4050 ####[facility] [address] [place], [address] RBC Normal 4.6-6.2 [facility] Comment on above: Result Comment: DUPL ICATED TX PLAN ALREADY IN Performed By: #### L 100.0100, L500.4050 ####[facility] [address] [place], [address] RDW CV Normal 11.6-14.6 [facility] Comment on above: Result Comment: DUPL ICATED TX PLAN ALREADY IN Performed By: #### L 100.0100, L500.4050 ####[facility] [address] [place], [address] RDW SD Normal 35.1-43.9 [facility] Comment on above: Result Comment: DUPL ICATED TX PLAN ALREADY IN Performed By: #### L 100.0100, L500.4050 ####[facility] [address] [place], [address] WBC Normal 4.4-11.0 [facility] Comment on above: Result Comment: DUPL ICATED TX PLAN ALREADY IN Performed By: #### L 100.0100, L500.4050 ####[facility] [address] [place], [address] Comprehensive Metabolic Prof [facility] 06-24-2024 Albumin [Mass/Vol] 3.9 g/dL Normal 3.4-4.8 [facility] Comment on above: Performed By: #### L 501.5200, L100.0100, L500.4050 ####[facility] [address] [place], [address] Albumin/Globulin [Mass ratio] 1.4 {ratio} Normal 0.9-2.4 [facility] Comment on above: Performed By: #### L 501.5200, L100.0100, L500.4050 ####[facility] [address] [place], [address] ALK PHOS 94 U/L Normal 40-129 [facility] Comment on above: Performed By: #### L 501.5200, L100.0100, L500.4050 ####[facility] [address] [place], [address] ALT [Catalytic activity/Vol] 23 U/L Normal <=46 [facility] Comment on above: Performed By: #### L 501.5200, L100.0100, L500.4050 ####[facility] [address] [place], [address] AST [Catalytic activity/Vol] 27 U/L Normal <=37 [facility] Comment on above: Performed By: #### L 501.5200, L100.0100, L500.4050 ####[facility] [address] [place], [address] Bilirubin [Mass/Vol] 0.39 mg/dL Normal 0.00-1.30 [facility] Comment on above: Performed By: #### L 501.5200, L100.0100, L500.4050 ####[facility] [address] [place], [address] BUN/CRE 16.6 RATIO Normal 10-20 [facility] Comment on above: Performed By: #### L 501.5200, L100.0100, L500.4050 ####[facility] [address] [place], [address] Calcium [Mass/Vol] 9.8 mg/dL Normal 7.6-11.0 [facility] Comment on above: Performed By: #### L 501.5200, L100.0100, L500.4050 ####[facility] [address] [place], [address] Chloride [Moles/Vol] 106 mmol/L Normal 98-108 [facility] Comment on above: Performed By: #### L 501.5200, L100.0100, L500.4050 ####[facility] [address] [place], [address] CO2 [Moles/Vol] 22.1 mmol/L Normal 21.0-32.0 [facility] Comment on above: Performed By: #### L 501.5200, L100.0100, L500.4050 ####[facility] [address] [place], [address] Creatinine [Mass/Vol] 0.97 mg/dL Normal 0.70-1.20 [facility] Comment on above: Performed By: #### L 501.5200, L100.0100, L500.4050 ####[facility] [address] [place], [address] ECRCL 62.52 ml/min Normal 50-250 [facility] Comment on above: Performed By: #### L 501.5200, L100.0100, L500.4050 ####[facility] [address] [place], [address] GAP 12 Normal 5-15 [facility] Comment on above: Performed By: #### L 501.5200, L100.0100, L500.4050 ####[facility] [address] [place], [address] GFR/1.73 sq M.predicted among non-blacks MDRD (S/P/Bld) [Vol rate/Area] 85 mL/min/{1.73_m2} Normal >60 [facility] Comment on above: Result Comment: mL/m in/1.73m2 CKD-EPI Creatinine Equation (2020) Performed By: #### L 501.5200, L100.0100, L500.4050 ####[facility] [address] [place], [address] Globulin (S) [Mass/Vol] 2.7 g/dL Normal 2.2-4.2 [facility] Comment on above: Performed By: #### L 501.5200, L100.0100, L500.4050 ####[facility] [address] [place], [address] Glucose [Mass/Vol] 135 mg/dL High 70-99 [facility] Comment on above: Performed By: #### L 501.5200, L100.0100, L500.4050 ####[facility] [address] [place], [address] Potassium [Moles/Vol] 4.1 mmol/L Normal 3.3-5.1 [facility] Comment on above: Performed By: #### L 501.5200, L100.0100, L500.4050 ####[facility] [address] [place], [address] Sodium [Moles/Vol] 140 mmol/L Normal 133-145 [facility] Comment on above: Performed By: #### L 501.5200, L100.0100, L500.4050 ####[facility] [address] [place], [address] T PROT 6.6 g/dL Normal 5.9-8.4 [facility] Comment on above: Performed By: #### L 501.5200, L100.0100, L500.4050 ####[facility] [address] [place], [address] Urea nitrogen [Mass/Vol] 16 mg/dL Normal 4-19 [facility] Comment on above: Performed By: #### L 501.5200, L100.0100, L500.4050 ####[facility] [address] [place], [address] ALB Normal 3.4-4.8 [facility] Comment on above: Result Comment: DUPL ICATED TX PLAN ALREADY IN Performed By: #### L 100.0100, L500.4050 ####[facility] [address] [place], [address] ALK PHOS Normal 40-129 [facility] Comment on above: Result Comment: DUPL ICATED TX PLAN ALREADY IN Performed By: #### L 100.0100, L500.4050 ####[facility] [address] [place], [address] ALT Normal <=46 [facility] Comment on above: Result Comment: DUPL ICATED TX PLAN ALREADY IN Performed By: #### L 100.0100, L500.4050 ####[facility] [address] [place], [address] AST Normal <=37 [facility] Comment on above: Result Comment: DUPL ICATED TX PLAN ALREADY IN Performed By: #### L 100.0100, L500.4050 ####[facility] [address] [place], [address] BUN Normal 4-19 [facility] Comment on above: Result Comment: DUPL ICATED TX PLAN ALREADY IN Performed By: #### L 100.0100, L500.4050 ####[facility] [address] [place], [address] BUN/CRE Normal 10-20 [facility] Comment on above: Result Comment: DUPL ICATED TX PLAN ALREADY IN Performed By: #### L 100.0100, L500.4050 ####[facility] [address] [place], [address] Calcium Normal 7.6-11.0 [facility] Comment on above: Result Comment: DUPL ICATED TX PLAN ALREADY IN Performed By: #### L 100.0100, L500.4050 ####[facility] [address] [place], [address] CL Normal 98-108 [facility] Comment on above: Result Comment: DUPL ICATED TX PLAN ALREADY IN Performed By: #### L 100.0100, L500.4050 ####[facility] [address] [place], [address] CO2 Normal 21.0-32.0 [facility] Comment on above: Result Comment: DUPL ICATED TX PLAN ALREADY IN Performed By: #### L 100.0100, L500.4050 ####[facility] [address] [place], [address] CREAT,SERUM Normal 0.70-1.20 [facility] Comment on above: Result Comment: DUPL ICATED TX PLAN ALREADY IN Performed By: #### L 100.0100, L500.4050 ####[facility] [address] [place], [address] eGFR Normal >60 [facility] Comment on above: Result Comment: DUPL ICATED TX PLAN ALREADY IN Performed By: #### L 100.0100, L500.4050 ####[facility] [address] [place], [address] GAP Normal 5-15 [facility] Comment on above: Result Comment: DUPL ICATED TX PLAN ALREADY IN Performed By: #### L 100.0100, L500.4050 ####[facility] [address] [place], [address] GLU Normal 70-99 [facility] Comment on above: Result Comment: DUPL ICATED TX PLAN ALREADY IN Performed By: #### L 100.0100, L500.4050 ####[facility] [address] [place], [address] Potassium Normal 3.3-5.1 [facility] Comment on above: Result Comment: DUPL ICATED TX PLAN ALREADY IN Performed By: #### L 100.0100, L500.4050 ####[facility] [address] [place], [address] T BILI Normal 0.00-1.30 [facility] Comment on above: Result Comment: DUPL ICATED TX PLAN ALREADY IN Performed By: #### L 100.0100, L500.4050 ####[facility] [address] [place], [address] T PROT Normal 5.9-8.4 [facility] Comment on above: Result Comment: DUPL ICATED TX PLAN ALREADY IN Performed By: #### L 100.0100, L500.4050 ####[facility] [address] [place], [address] Comprehensive Metabolic Profil Normal 133-145 [facility] Comment on above: Result Comment: DUPL ICATED TX PLAN ALREADY IN Performed By: #### L 100.0100, L500.4050 ####[facility] [address] [place], [address] Cytology report Cyto stain D oc (Body fld)Ordered By: Donny Martinez on 06-24-2024 Miscellaneous Cytology SEE PATHOLOGY REPORT [facility] Comment on above: Specimen submitted t o Anatomical Pathology Department for testing. Cytology, Body Fluid / CSFon 06-24-2024 CYTOLOGY,BF/CSF SEE PATHOLOGY REPORT Normal [facility] Comment on above: Order Comment: URINE IS BEING SENT TO LABReason for Exam: URINEComments: URINEURINE Result Comment: Spec imen submitted to Anatomical Pathology Department fortesting. Performed By: #### L 350.1000 ####[facility] [address] [place], [address] Magnesiumon 06-24-2024 Magnesium [Mass/Vol] 2.3 mg/dL High 1.5-2.2 [facility] Comment on above: Performed By: #### L 501.5200, L100.0100, L500.4050 ####[facility] [address] [place], [address] Oncology Visit Reporton 06-15 Oncology Visit Report Normal [facility] Pap Stain (control)on 2024 Pap Stain (control) Normal [facility] Comment on above: Performed By: #### P PAPS ####[facility] [address] [place], [address] CBC W/Diff, Automatedon Absolute Neut Normal 2.0-7.7 [facility] Comment on above: Result Comment: Canc elled via OM: Physician Authorized Performed By: #### L 100.0100, L500.4050 ####[facility] [address] [place], [address] HCT Normal 40-54 [facility] Comment on above: Result Comment: Canc elled via OM: Physician Authorized Performed By: #### L 100.0100, L500.4050 ####[facility] [address] [place], [address] HGB Normal 13.0-16.5 [facility] Comment on above: Result Comment: Canc elled via OM: Physician Authorized Performed By: #### L 100.0100, L500.4050 ####[facility] [address] [place], [address] MCH Normal 27.0-32.0 [facility] Comment on above: Result Comment: Canc elled via OM: Physician Authorized Performed By: #### L 100.0100, L500.4050 ####[facility] [address] [place], [address] MCHC Normal 32-36 [facility] Comment on above: Result Comment: Canc elled via OM: Physician Authorized Performed By: #### L 100.0100, L500.4050 ####[facility] [address] [place], [address] MCV Normal 80-94 [facility] Comment on above: Result Comment: Canc elled via OM: Physician Authorized Performed By: #### L 100.0100, L500.4050 ####[facility] [address] [place], [address] NEUT% Normal 47-70 [facility] Comment on above: Result Comment: Canc elled via OM: Physician Authorized Performed By: #### L 100.0100, L500.4050 ####[facility] [address] [place], [address] PLT Normal 150-450 [facility] Comment on above: Result Comment: Canc elled via OM: Physician Authorized Performed By: #### L 100.0100, L500.4050 ####[facility] [address] [place], [address] RBC Normal 4.6-6.2 [facility] Comment on above: Result Comment: Canc elled via OM: Physician Authorized Performed By: #### L 100.0100, L500.4050 ####[facility] [address] [place], [address] RDW CV Normal 11.6-14.6 [facility] Comment on above: Result Comment: Canc elled via OM: Physician Authorized Performed By: #### L 100.0100, L500.4050 ####[facility] [address] [place], [address] RDW SD Normal 35.1-43.9 [facility] Comment on above: Result Comment: Canc elled via OM: Physician Authorized Performed By: #### L 100.0100, L500.4050 ####[facility] [address] [place], [address] WBC Normal 4.4-11.0 [facility] Comment on above: Result Comment: Canc elled via OM: Physician Authorized Performed By: #### L 100.0100, L500.4050 ####[facility] [address] [place], [address] Comprehensive Metabolic Prof ratna 06-19-2024 ALB Normal 3.4-4.8 [facility] Comment on above: Result Comment: Canc elled via OM: Physician Authorized Performed By: #### L 100.0100, L500.4050 ####[facility] [address] [place], [address] ALK PHOS Normal 40-129 [facility] Comment on above: Result Comment: Canc elled via OM: Physician Authorized Performed By: #### L 100.0100, L500.4050 ####[facility] [address] [place], [address] ALT Normal <=46 [facility] Comment on above: Result Comment: Canc elled via OM: Physician Authorized Performed By: #### L 100.0100, L500.4050 ####[facility] [address] [place], [address] AST Normal <=37 [facility] Comment on above: Result Comment: Canc elled via OM: Physician Authorized Performed By: #### L 100.0100, L500.4050 ####[facility] [address] [place], [address] BUN Normal 4-19 [facility] Comment on above: Result Comment: Canc elled via OM: Physician Authorized Performed By: #### L 100.0100, L500.4050 ####[facility] [address] [place], [address] BUN/CRE Normal 10-20 [facility] Comment on above: Result Comment: Canc elled via OM: Physician Authorized Performed By: #### L 100.0100, L500.4050 ####[facility] [address] [place], [address] Calcium Normal 7.6-11.0 [facility] Comment on above: Result Comment: Canc elled via OM: Physician Authorized Performed By: #### L 100.0100, L500.4050 ####[facility] [address] [place], [address] CL Normal 98-108 [facility] Comment on above: Result Comment: Canc elled via OM: Physician Authorized Performed By: #### L 100.0100, L500.4050 ####[facility] [address] [place], [address] CO2 Normal 21.0-32.0 [facility] Comment on above: Result Comment: Canc elled via OM: Physician Authorized Performed By: #### L 100.0100, L500.4050 ####[facility] [address] [place], [address] CREAT,SERUM Normal 0.70-1.20 [facility] Comment on above: Result Comment: Canc elled via OM: Physician Authorized Performed By: #### L 100.0100, L500.4050 ####[facility] [address] [place], [address] eGFR Normal >60 [facility] Comment on above: Result Comment: Canc elled via OM: Physician Authorized Performed By: #### L 100.0100, L500.4050 ####[facility] [address] [place], [address] GAP Normal 5-15 [facility] Comment on above: Result Comment: Canc elled via OM: Physician Authorized Performed By: #### L 100.0100, L500.4050 ####[facility] [address] [place], [address] GLU Normal 70-99 [facility] Comment on above: Result Comment: Canc elled via OM: Physician Authorized Performed By: #### L 100.0100, L500.4050 ####[facility] [address] [place], [address] Potassium Normal 3.3-5.1 [facility] Comment on above: Result Comment: Canc elled via OM: Physician Authorized Performed By: #### L 100.0100, L500.4050 ####[facility] [address] [place], [address] T BILI Normal 0.00-1.30 [facility] Comment on above: Result Comment: Canc elled via OM: Physician Authorized Performed By: #### L 100.0100, L500.4050 ####[facility] [address] [place], [address] T PROT Normal 5.9-8.4 [facility] Comment on above: Result Comment: Canc elled via OM: Physician Authorized Performed By: #### L 100.0100, L500.4050 ####[facility] [address] [place], [address] Comprehensive Metabolic Profil Normal 133-145 [facility] Comment on above: Result Comment: Canc elled via OM: Physician Authorized Performed By: #### L 100.0100, L500.4050 ####[facility] [address] [place], [address] Oncology Visit Reporton 03-0 Oncology Visit Report Normal [facility] CREATININE FINGERSTICKon CREATININE WB < 1.0 Normal 0.70-1.30 [facility] Comment on above: Performed By: #### L 9100.0200 ####[facility] [address] [place], [address] EGFR WB > 60.0000 Normal >60 [facility] Comment on above: Performed By: #### L 9100.0200 ####[facility] [address] [place], [address] Creatinine measurement at be dsideOrdered By: Donny Martinez on 06-17-2024 Bedside Creatinine < 1.0 mg/dL 0.70-1.30 [facility] EGFROrdered By: Donny Martinez on 06-17-2024 Bedside Estimated GFR (eGFR) > 60.0000 mL/min >60 [facility] GFR/1.73 sq M.predicted among non-blacks MDRD (S/P/Bld) [Vol rate/Area] mL/min/{1.73_m2} >60 [facility] CXR for Line Placementon CXR for Line Placement Normal [place] [facility] [place] Instructionon 05-19 Discharge Instruction Normal [place] [facility] MR/POSTOP.ANEon 06-14-2024 MR/POSTOP.ANE Normal [facility] MR/NRNQFIGX6yk 06-14-2024 MR/POSTOPAN2 [facility] Operative Reporton Operative Report [facility] CNOVon 06-12-2024 CNOV Office Visit (UROLMN) ---- BETHANY WILKINS ([id number]) 1955 [facility] Date Time Provider Department 06/12/24 ALVARO DAVEY UROBALJINDER During your visit today, we recorded the following information about you: Alvaro Davey, Research Coordinator 06/12/2024 8:33 AM Signed Patient was approached about his interest in IRB [id number], patient declined. 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 Problem List As Of Date: 06/12/2024 (None) Encounter Status:Closed by ALVARO [facility]AVE[facility]12/[facility] CNOV Office Visit (UROLMN) ---- BETHANY WILKINS ([id number]) 1955 [facility] Date Time Provider Department 06/11/24 11:00 AM ROEL HEATH During your visit today, we recorded the following information about you: Pulse Blood pressure Weight Height 69/minute 130/78 65.7 kg 1.651 m Roel Heath MD 06/12/2024 10:21 AM Signed ##New Invasive Bladder Cancer Patient## Chief Complaint: Invasive Bladder Cancer History of Present Illness: Bethany Wilkins is a very pleasant 69 year old [...] PET scan highlighted areas, but biopsy by manager van showed no cancer. - Conflicting opinions from oncologists regarding lung findings. - Recent blood test (Signatera) showed positive for cancer DNA; oncologist dismissed the test as "worthless." - No known kidney issues; initial ultrasound showed mild swelling in one kidney due to tumor obstruction. - Denies smoking history. 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 - Describes himself as very active, with [...] 130/78, pulse 69, height 165.1 cm (5' 5"), weight 65.7 kg (144 lb 13.5 oz). General Appearance Adult: Alert, no acute distress, oriented Lungs/Repiratory: no respiratory distress, or pursed lip breathing Psych: affect and mood normal Abdomen: Estimated body mass index is 24.1 kg/m? as calculated from the following: Height as of this encounter: 165.1 cm (5' 5"). Weight as of this encounter: 65.7 kg [...] higher, cl (more content not included)... Normal [facility] Surgery Visit Reporton 06-10 Surgery Visit Report Normal [facility] Radiation Oncology Visiton 0 05-24-2024 Radiation Oncology Visit Normal [facility] Oncology Visit Reporton Oncology Visit Report Normal [facility] Bronchoscopy Reporton 2024 Bronchoscopy Report Normal [facility] MR/POSTOP.ANEon 05-10-2024 MR/POSTOP.ANE Normal [facility] MR/YDXLLAMY6ti 05-10-2024 MR/POSTOPAN2 Normal [facility] Special Stain Group IIon Special Stain Group II Normal [facility] Comment on above: Performed By: #### P SSII ####[facility] [address] [place], [place], [address] MR/PAT.ANEon 05-07-2024 MR/PAT.ANE Normal [facility] International normalized rat io (INR) calculationOrdered By: Young Samuels on 04-30-2024 INR Coag (Bld) [Relative time] 0.9 {INR} [facility] PLATELET COUNTon 04-30-2024 Platelets (Bld) [#/Vol] 226 10*3/uL Normal 150-450 [facility] Comment on above: Performed By: #### L 300.3900, L100.0625 ####[facility] [address] [place], [place], [address] Platelet countOrdered By: Gómez on 04-30-2024 Platelets (Bld) [#/Vol] 226 10*3/uL 150-450 [facility] Prothrombin Time w/INRon INR Coag (PPP) [Relative time] 0.9 {INR} Normal [facility] Comment on above: Performed By: #### L 300.3900, L100.0625 ####[facility] [address] [place], [address] PT Coag (PPP) [Time] 12.6 s Normal 11.7-14.9 [facility] Comment on above: Performed By: #### L 300.3900, L100.0625 ####[facility] [address] [place], [address] Prothrombin timeOrdered By: Young Samuels on 04-30-2024 PT Coag (PPP) [Time] 12.6 s 11.7-14.9 [facility] Pulmonary Visit Reporton Pulmonary Visit Report Normal [facility] Oncology Visit Reporton Oncology Visit Report Normal [facility] PET/CT Tumor Base -Thigh Ini ton 04-23-2024 PET/CT Tumor Base -Thigh Init Normal [facility] Oncology Visit Reporton 03-19 Oncology Visit Report Normal [facility] CT Chest, Abd, Pel w/Contras ton 04-11-2024 CT Chest, Abd, Pel w/Contrast Normal [facility] CBC W/Diff, Automatedon 03-17 Absolute Lymph 1.10 X10 3/uL Normal 0.83-4.51 [facility] Comment on above: Performed By: #### L 504.2610, L500.4050, L100.0100 ####[facility] [address] [place], [address] Absolute Neut 3.7 X10 3/uL Normal 2.0-7.7 [facility] Comment on above: Performed By: #### L 504.2610, L500.4050, L100.0100 ####[facility] [address] [place], [address] Basophils/100 WBC (Bld) 0.7 % Normal 0-1 [facility] Comment on above: Performed By: #### L 504.2610, L500.4050, L100.0100 ####[facility] [address] [place], [address] Eosinophils/100 WBC (Bld) 0.9 % Normal 0-5 [facility] Comment on above: Performed By: #### L 504.2610, L500.4050, L100.0100 ####[facility] [address] [place], [address] Erythrocyte distribution width (RBC) [Ratio] 13.4 % Normal 11.6-14.6 [facility] Comment on above: Performed By: #### L 504.2610, L500.4050, L100.0100 ####[facility] [address] [place], [address] Hematocrit (Bld) [Volume fraction] 37.5 % Low 40-54 [facility] Comment on above: Performed By: #### L 504.2610, L500.4050, L100.0100 ####[facility] [address] [place], [address] Hemoglobin (Bld) [Mass/Vol] 12.5 g/dL Low 13.0-16.5 [facility] Comment on above: Performed By: #### L 504.2610, L500.4050, L100.0100 ####[facility] [address] [place], [address] IG% 0.200 Normal 0.0-0.9 [facility] Comment on above: Result Comment: IG% - Immature Granulocytes (promyelocytes, myelocytes andmetamyelocytes) > 1% indicates that a LEFT SHIFT is Present. Performed By: #### L 504.2610, L500.4050, L100.0100 ####[facility] [address] [place], [address] Lymphocytes/100 WBC (Bld) 20.1 % Normal 19-41 [facility] Comment on above: Performed By: #### L 504.2610, L500.4050, L100.0100 ####[facility] [address] [place], [address] MCH (RBC) [Entitic mass] 28.1 pg Normal 27.0-32.0 [facility] Comment on above: Performed By: #### L 504.2610, L500.4050, L100.0100 ####[facility] [address] [place], [address] MCHC (RBC) [Mass/Vol] 33.3 g/dL Normal 32-36 [facility] Comment on above: Performed By: #### L 504.2610, L500.4050, L100.0100 ####[facility] [address] [place], [address] MCV (RBC) [Entitic vol] 84.3 fL Normal 80-94 [facility] Comment on above: Performed By: #### L 504.2610, L500.4050, L100.0100 ####[facility] [address] [place], [address] Monocytes/100 WBC (Bld) 9.9 % Normal 0-10 [facility] Comment on above: Performed By: #### L 504.2610, L500.4050, L100.0100 ####[facility] [address] [place], [address] Neutrophils/100 WBC (Bld) 68.2 % Normal 47-70 [facility] Comment on above: Performed By: #### L 504.2610, L500.4050, L100.0100 ####[facility] [address] [place], [address] Nucleated RBC (Bld) [#/Vol] 0 10*3/uL Normal 0-5 [facility] Comment on above: Performed By: #### L 504.2610, L500.4050, L100.0100 ####[facility] [address] [place], [address] Platelet mean volume (Bld) [Entitic vol] 9.3 fL Normal 6.2-12.0 [facility] Comment on above: Performed By: #### L 504.2610, L500.4050, L100.0100 ####[facility] [address] [place], [address] Platelets (Bld) [#/Vol] 275 10*3/uL Normal 150-450 [facility] Comment on above: Performed By: #### L 504.2610, L500.4050, L100.0100 ####[facility] [address] [place], [address] RBC (Bld) [#/Vol] 4.45 10*6/uL Low 4.6-6.2 [facility] Comment on above: Performed By: #### L 504.2610, L500.4050, L100.0100 ####[facility] [address] [place], [address] RDW SD 41.1 fl Normal 35.1-43.9 [facility] Comment on above: Performed By: #### L 504.2610, L500.4050, L100.0100 ####[facility] [address] [place], [address] WBC (Bld) [#/Vol] 5.5 10*3/uL Normal 4.4-11.0 [facility] Comment on above: Performed By: #### L 504.2610, L500.4050, L100.0100 ####[facility] [address] [place], [address] Comprehensive Metabolic Prof ilon 04-04-2024 Albumin [Mass/Vol] 4.2 g/dL Normal 3.2-5.0 [facility] Comment on above: Order Comment: 1 Performed By: #### L 504.2610, L500.4050, L100.0100 ####[facility] [address] [place], [address] Albumin/Globulin [Mass ratio] 1.3 {ratio} Normal 0.9-2.4 [facility] Comment on above: Order Comment: 1 Performed By: #### L 504.2610, L500.4050, L100.0100 ####[facility] [address] [place], [address] ALK P 104 U/L Normal 45-117 [facility] Comment on above: Order Comment: 1 Performed By: #### L 504.2610, L500.4050, L100.0100 ####[facility] [address] [place], [address] ALT [Catalytic activity/Vol] 40 U/L Normal 16-61 [facility] Comment on above: Order Comment: 1 Performed By: #### L 504.2610, L500.4050, L100.0100 ####[facility] [address] [place], [address] AST [Catalytic activity/Vol] 23 U/L Normal 15-37 [facility] Comment on above: Order Comment: 1 Performed By: #### L 504.2610, L500.4050, L100.0100 ####[facility] [address] [place], [address] Bilirubin [Mass/Vol] 0.40 mg/dL Normal 0.20-1.00 [facility] Comment on above: Order Comment: 1 Result Comment: For patients on eltrombopag therapy, use of Dimension [place] TBIL is not recommended. Performed By: #### L 504.2610, L500.4050, L100.0100 ####[facility] [address] [place], [address] BUN/CRE 14.1 RATIO Normal 10-20 [facility] Comment on above: Order Comment: 1 Performed By: #### L 504.2610, L500.4050, L100.0100 ####[facility] [address] [place], [address] CA,Total 9.8 mg/dL Normal 8.5-10.1 [facility] Comment on above: Order Comment: 1 Performed By: #### L 504.2610, L500.4050, L100.0100 ####[facility] [address] [place], [address] Chloride [Moles/Vol] 109 mmol/L High 98-107 [facility] Comment on above: Order Comment: 1 Performed By: #### L 504.2610, L500.4050, L100.0100 ####[facility] [address] [place], [address] CO2 [Moles/Vol] 27.0 mmol/L Normal 21.0-32.0 [facility] Comment on above: Order Comment: 1 Performed By: #### L 504.2610, L500.4050, L100.0100 ####[facility] [address] [place], [address] Creatinine [Mass/Vol] 0.99 mg/dL Normal 0.70-1.30 [facility] Comment on above: Order Comment: 1 Result Comment: The validity of the calculated GFR GFRAA in patients over70 years has not been determined. Clinical correlation isessential. Performed By: #### L 504.2610, L500.4050, L100.0100 ####[facility] [address] [place], [address] EST GFR - AA 96 mL/min Normal >60 [facility] Comment on above: Order Comment: 1 Result Comment: Afri can [place] GFR Calc Performed By: #### L 504.2610, L500.4050, L100.0100 ####[facility] [address] [place], [address] GAP 5 Normal 5-15 [facility] Comment on above: Order Comment: 1 Performed By: #### L 504.2610, L500.4050, L100.0100 ####[facility] [address] [place], [address] GFR/1.73 sq M.predicted among non-blacks MDRD (S/P/Bld) [Vol rate/Area] 80 mL/min/{1.73_m2} Normal >60 [facility] Comment on above: Order Comment: 1 Result Comment: Non- GFR Calc Performed By: #### L 504.2610, L500.4050, L100.0100 ####[facility] [address] [place], [address] Globulin (S) [Mass/Vol] 3.2 g/dL Normal 2.2-4.2 [facility] Comment on above: Order Comment: 1 Performed By: #### L 504.2610, L500.4050, L100.0100 ####[facility] [address] [place], [address] Glucose [Mass/Vol] 85 mg/dL Normal 74-106 [facility] Comment on above: Order Comment: 1 Performed By: #### L 504.2610, L500.4050, L100.0100 ####[facility] [address] [place], [address] Potassium [Moles/Vol] 3.6 mmol/L Normal 3.5-5.1 [facility] Comment on above: Order Comment: 1 Performed By: #### L 504.2610, L500.4050, L100.0100 ####[facility] [address] [place], [address] Sodium [Moles/Vol] 141 mmol/L Normal 136-145 [facility] Comment on above: Order Comment: 1 Performed By: #### L 504.2610, L500.4050, L100.0100 ####[facility] [address] [place], [address] T PROT 7.4 g/dL Normal 6.4-8.2 [facility] Comment on above: Order Comment: 1 Performed By: #### L 504.2610, L500.4050, L100.0100 ####[facility] [address] [place], [address] Urea nitrogen [Mass/Vol] 14 mg/dL Normal 7-18 [facility] Comment on above: Order Comment: 1 Performed By: #### L 504.2610, L500.4050, L100.0100 ####[facility] [address] [place], [address] Estimated glomerular filtrat ion rate (GFR) AmericanOrdered By: Donny Martinez on 04-04-2024 Estimated GFR (MDRD) Amer 96 mL/min >60 [facility] Comment on above: GFR Calc LDHon 04-04-2024 LDH 230 U/L Normal 87-241 [facility] Comment on above: Order Comment: 1 Performed By: #### L 504.2610, L500.4050, L100.0100 ####[facility] [address] [place], [address] Lactate dehydrogenase (LDH) measurementOrdered By: Donny Martinez on 04-04-2024 LDH [Catalytic activity/Vol] 230 U/L 87-241 [facility] Miscellaneous procedureOrder ed By: Donny Martinez on 04-04-2024 Miscellaneous Test Comment SEE SCANNED REPORT [facility] NATERAon 04-04-2024 NATURA SEE SCANNED REPORT Normal [facility] Comment on above: Performed By: #### L 900.0098 ####[facility] [address] [place], [address] Oncology Visit Reporton 03-17 Oncology Visit Report Normal [facility] Discharge Instructionon 02-16 Discharge Instruction Normal [facility] MR/POSTOP.ANEon 03-13-2024 MR/POSTOP.ANE Normal [facility] MR/[id number] 03-13-2024 MR/POSTOPAN2 Normal [facility] Operative Reporton Operative Report Normal [facility] Surgery Specimen Level Von 1 05-13-2023 Surgery Specimen Level V Normal [facility] Comment on above: Performed By: #### P SUV ####[facility] [address] [place], [address] US RENALon 01-08-2024 US RENAL ORIGINAL EXAMINATION: [...] Date: 01/08/2024 12:08:29 PM Ordering Provider: KYRIE Tellez [facility] .Auto Diffon 12-29-2023 Basophil, Absolute 0.1 10 3/mcL Normal 0.0-0.2 [facility] Comment on above: Performed By: #### P SA, ANEU, CBC, ADIFF, CMP, GFR #### [address] [address] Basophils/100 WBC (Bld) 0.6 % Normal 0.0-2.5 [facility] Comment on above: Performed By: #### P SA, ANEU, CBC, ADIFF, CMP, GFR #### [address] [address] Eosinophil, Absolute 0.0 10 3/mcL Normal 0.0-0.[address] [facility] Comment on above: Performed By: #### P SA, ANEU, CBC, ADIFF, CMP, GFR #### [address] [address] Eosinophils/100 WBC (Bld) 0.5 % Normal 0.0-7.0 [facility] Comment on above: Performed By: #### P SA, ANEU, CBC, ADIFF, CMP, GFR #### [place] [address] [place], [place] [address] Lymphocyte, Absolute 1.6 10 3/mcL Normal 0.8-3.[address] [facility] Comment on above: Performed By: #### P SA, ANEU, CBC, ADIFF, CMP, GFR #### [address] [address] Lymphocytes/100 WBC (Bld) 19.4 % Normal 10.0-50.0 [facility] Comment on above: Performed By: #### P SA, ANEU, CBC, ADIFF, CMP, GFR #### [address] [address] Monocyte, Absolute 0.6 10 3/mcL Normal 0.2-1.0 [facility] Comment on above: Performed By: #### P SA, ANEU, CBC, ADIFF, CMP, GFR #### [address] [address] Monocytes/100 WBC (Bld) 6.7 % Normal 1.7-13.0 [facility] Comment on above: Performed By: #### P SA, ANEU, CBC, ADIFF, CMP, GFR #### [address] [address] Neutrophils/100 WBC (Bld) 72.8 % Normal 37.0-80.0 [facility] Comment on above: Performed By: #### P SA, ANEU, CBC, ADIFF, CMP, GFR #### [address] [address] .GFRon 12-29-2023 GFR 72 ml/min/1.73sqm Normal [facility] Comment on above: Result Comment: GFR [...] SA, ANEU, CBC, ADIFF, CMP, GFR #### [address] [address] GFR Non- 59 ml/min/1.73sqm Normal [facility] Comment on above: Result Comment: GFR [...] SA, ANEU, CBC, ADIFF, CMP, GFR #### [address] [address] .NEUABSon 12-29-2023 Neutrophil, Absolute 6.2 10 3/mcL Normal 2.9-6.[address] [facility] Comment on above: Performed By: #### P SA, ANEU, CBC, ADIFF, CMP, GFR #### [address] [address] CBCon 12-29-2023 Erythrocyte distribution width (RBC) [Ratio] 13.2 % Normal 11.5-14.5 [facility] Comment on above: Performed By: #### P SA, ANEU, CBC, ADIFF, CMP, GFR #### [address] [address] Hematocrit (Bld) [Volume fraction] 43.6 % Normal 42.0-52.0 [facility] Comment on above: Performed By: #### P SA, ANEU, CBC, ADIFF, CMP, GFR #### [place] [id number] Hgb 15.2 G/dL Normal 14.0-18.0 [facility] Comment on above: Performed By: #### P SA, ANEU, CBC, ADIFF, CMP, GFR #### [address] [address] MCH (RBC) [Entitic mass] 31.8 pg High 27.0-31.2 [facility] Comment on above: Performed By: #### P SA, ANEU, CBC, ADIFF, CMP, GFR #### [place] [address] MCHC 34.8 G/dL Normal 31.8-35.4 [facility] Comment on above: Performed By: #### P SA, ANEU, CBC, ADIFF, CMP, GFR #### [place] [address] MCV (RBC) [Entitic vol] 91.5 fL Normal 80.0-94.0 [facility] Comment on above: Performed By: #### P SA, ANEU, CBC, ADIFF, CMP, GFR #### [address] [address] Platelet 229 10 3/mcL Normal 130-400 [facility] Comment on above: Performed By: #### P SA, ANEU, CBC, ADIFF, CMP, GFR #### [address] [address] Platelet mean volume (Bld) [Entitic vol] 7.7 fL Normal 7.4-10.4 [facility] Comment on above: Performed By: #### P SA, ANEU, CBC, ADIFF, CMP, GFR #### [address] [address] RBC 4.77 10 6/mcL Normal 4.04-6.13 [facility] Comment on above: Performed By: #### P SA, ANEU, CBC, ADIFF, CMP, GFR #### [address] [address] WBC 8.5 10 3/mcL Normal 4.6-10.8 [facility] Comment on above: Performed By: #### P SA, ANEU, CBC, ADIFF, CMP, GFR #### [address] [address] CMPon 12-29-2023 Albumin Level 4.3 G/dL Normal 3.4-4.8 [facility] Comment on above: Performed By: #### P SA, ANEU, CBC, ADIFF, CMP, GFR #### [address] [address] Albumin/Globulin [Mass ratio] 2.0 {ratio} Normal 1.1-2.5 [facility] Comment on above: Performed By: #### P SA, ANEU, CBC, ADIFF, CMP, GFR #### [address] [address] ALP [Catalytic activity/Vol] 94 U/L Normal 40-135 [facility] Comment on above: Performed By: #### P SA, ANEU, CBC, ADIFF, CMP, GFR #### [address] [address] ALT [Catalytic activity/Vol] 30 U/L Normal 16-63 [facility] Comment on above: Performed By: #### P SA, ANEU, CBC, ADIFF, CMP, GFR #### [address] [address] AST [Catalytic activity/Vol] 22 U/L Normal 10-40 [facility] Comment on above: Performed By: #### P SA, ANEU, CBC, ADIFF, CMP, GFR #### [address] [address] Bili Total 0.8 mg/dL Normal 0.2-1.0 [facility] Comment on above: Result Comment: Use of this assay is not recommended for patients undergoing treatment with eltrombopag due to the potential for falsely elevated results. Performed By: #### P SA, ANEU, CBC, ADIFF, CMP, GFR #### [address] [address] BUN/Creatinine Ratio 15 ratio Normal 7-27 [facility] Comment on above: Performed By: #### P SA, ANEU, CBC, ADIFF, CMP, GFR #### [address] [address] Calcium [Mass/Vol] 10.0 mg/dL Normal 8.4-10.2 [facility] Comment on above: Performed By: #### P SA, ANEU, CBC, ADIFF, CMP, GFR #### [place] [address] Chloride [Moles/Vol] 104 mmol/L Normal 98-107 [facility] Comment on above: Performed By: #### P SA, ANEU, CBC, ADIFF, CMP, GFR #### [place] [address] CO2 [Moles/Vol] 22 mmol/L Low 23-31 [facility] Comment on above: Performed By: #### P SA, ANEU, CBC, ADIFF, CMP, GFR #### [place] [address] Creatinine [Mass/Vol] 1.22 mg/dL Normal 0.70-1.[address] [facility] Comment on above: Result Comment: Test ing performed on Siemens Dimension EXL analyzer using a modified kinetic Jarad technique. Performed By: #### P SA, ANEU, CBC, ADIFF, CMP, GFR #### [place] [address] Electrolyte Balance 13.0 mEq/L Normal 4.0-15.0 [facility] Comment on above: Performed By: #### P SA, ANEU, CBC, ADIFF, CMP, GFR #### [place] [address] Globulin 2.2 G/dL Normal [facility] Comment on above: Performed By: #### P SA, ANEU, CBC, ADIFF, CMP, GFR #### [place] [address] Glucose [Mass/Vol] 98 mg/dL Normal 80-115 [facility] Comment on above: Performed By: #### P SA, ANEU, CBC, ADIFF, CMP, GFR #### [address] [address] Potassium [Moles/Vol] 4.0 mmol/L Normal 3.5-5.[address] [facility] Comment on above: Performed By: #### P SA, ANEU, CBC, ADIFF, CMP, GFR #### [address] [address] Sodium [Moles/Vol] 139 mmol/L Normal 136-145 [facility] Comment on above: Performed By: #### P SA, ANEU, CBC, ADIFF, CMP, GFR #### [address] [address] Total Protein 6.5 G/dL Normal 6.4-8.2 [facility] Comment on above: Performed By: #### P SA, ANEU, CBC, ADIFF, CMP, GFR #### [address] [address] Urea nitrogen [Mass/Vol] 18 mg/dL Normal 7-18 [facility] Comment on above: Performed By: #### P SA, ANEU, CBC, ADIFF, CMP, GFR #### [address] [address] LABORATORYOrdered By: SYSTEM SYSTEM on 12-29-2023 Albumin [...] Prostate Specific Antigen 1.17 ng/mL Normal 0.00-4.00 [facility] Comment on above: Performed By: #### P SA, ANEU, CBC, ADIFF, CMP, GFR #### [facility] [address] [place], [place] [address] No Panel Informationon 12-25 Culture Urine <10,000 cfu/ml. No Significant growth. Sensitivity not indicated. [facility] XR SPINE CERVICAL W/ OBLIQUE S 5 [...] 05/01/2023 5:26:40 PM Ordering Provider: KEYANNA Tellez [facility] ([place]) Vital Signs Date Time Vital Sign Value Performing Clinician Vi orr 12-17-2024 11:50-0400 Body temperature 97.6 [degF] Kyrie Lozano FAMILY RESOURCE MANAGEMENT SPECIALIST-C Work Phone: [facility] 12-17-2024 11:50-0400 Diastolic blood pressure 74 mm[Hg] Kyrie Lozano FAMILY RESOURCE MANAGEMENT SPECIALIST-C Work Phone: [facility] 12-17-2024 11:50-0400 Heart rate 66 /min Kyrie Lozano FAMILY RESOURCE MANAGEMENT SPECIALIST-C Work Phone: [facility] 12-17-2024 11:50-0400 Respiratory rate 16 /min Kyrie Marta FAMILY RESOURCE MANAGEMENT SPECIALIST-C Work Phone: [facility] 12-17-2024 11:50-0400 SaO2% (BldA) [Mass fraction] 99 % Kyrie Lozano FAMILY RESOURCE MANAGEMENT SPECIALIST-C Work Phone: [facility] 12-17-2024 11:50-0400 Systolic blood pressure 127 mm[Hg] Kyrie Lozano FAMILY RESOURCE MANAGEMENT SPECIALIST-C Work Phone: [facility] 12-15-2024 00:16-0400 Body height 165.1 cm Kyrie Lozano FAMILY RESOURCE MANAGEMENT SPECIALIST-C Work Phone: [facility] 12-15-2024 00:16-0400 Body mass index (BMI) [Ratio] 24.1 kg/m2 Kyrie Lozano FAMILY RESOURCE MANAGEMENT SPECIALIST-C Work Phone: [facility] 12-15-2024 00:16-0400 Body weight 65.77 kg Kyrie Lozano FAMILY RESOURCE MANAGEMENT SPECIALIST-C Work Phone: [facility] 12-14-2024 23:37-0400 Body temperature 97.3 [degF] Kyrie Lozano FAMILY RESOURCE MANAGEMENT SPECIALIST-C Work Phone: [facility] 12-14-2024 23:37-0400 Diastolic blood pressure 80 mm[Hg] Kyrie Lozano FAMILY RESOURCE MANAGEMENT SPECIALIST-C Work Phone: [facility] 12-14-2024 23:37-0400 Heart rate 77 /min Kyrie Lozano FAMILY RESOURCE MANAGEMENT SPECIALIST-C Work Phone: [facility] 12-14-2024 23:37-0400 Respiratory rate 16 /min Kyrie Lozano FAMILY RESOURCE MANAGEMENT SPECIALIST-C Work Phone: [facility] 12-14-2024 23:37-0400 SaO2% (BldA) [Mass fraction] 100 % Kyrie Lozano FAMILY RESOURCE MANAGEMENT SPECIALIST-C Work Phone: [facility] 12-14-2024 23:37-0400 Systolic blood pressure 148 mm[Hg] Kyrie Lozano FAMILY RESOURCE MANAGEMENT SPECIALIST-C Work Phone: [facility] 12-14-2024 21:21-0400 Body temperature 97 [degF] Kyrie Lozano FAMILY RESOURCE MANAGEMENT SPECIALIST-C Work Phone: [facility] 12-14-2024 21:21-0400 Diastolic blood pressure 74 mm[Hg] Kyrie Lozano FAMILY RESOURCE MANAGEMENT SPECIALIST-C Work Phone: [facility] 12-14-2024 21:21-0400 Heart rate 61 /min Kyrie Lozano FAMILY RESOURCE MANAGEMENT SPECIALIST-C Work Phone: [facility] 12-14-2024 21:21-0400 Respiratory rate 16 /min Kyrie Lozano FAMILY RESOURCE MANAGEMENT SPECIALIST-C Work Phone: [facility] 12-14-2024 21:21-0400 SaO2% (BldA) [Mass fraction] 99 % Kyrie Lozano FAMILY RESOURCE MANAGEMENT SPECIALIST-C Work Phone: [facility] 12-14-2024 21:21-0400 Systolic blood pressure 136 mm[Hg] Kyrie Lozano FAMILY RESOURCE MANAGEMENT SPECIALIST-C Work Phone: [facility] 12-14-2024 21:00-0400 Body temperature 98.5 [degF] Kyrie Vogtpkins FAMILY RESOURCE MANAGEMENT SPECIALIST-C Work Phone: [facility] 12-14-2024 21:00-0400 Diastolic blood pressure 72 mm[Hg] Kyrie Vogtpkins FAMILY RESOURCE MANAGEMENT SPECIALIST-C Work Phone: [facility] 12-14-2024 21:00-0400 Heart rate 67 /min Kyrie Vogtpkins FAMILY RESOURCE MANAGEMENT SPECIALIST-C Work Phone: [facility] 12-14-2024 21:00-0400 Respiratory rate 18 /min Kyrie Vogtpkins FAMILY RESOURCE MANAGEMENT SPECIALIST-C Work Phone: [facility] 12-14-2024 21:00-0400 SaO2% (BldA) [Mass fraction] 98 % Kyrie Vogtpkins FAMILY RESOURCE MANAGEMENT SPECIALIST-C Work Phone: [facility] 12-14-2024 21:00-0400 Systolic blood pressure 147 mm[Hg] Kyrie Vogtpkins FAMILY RESOURCE MANAGEMENT SPECIALIST-C Work Phone: [facility] 12-14-2024 16:23-0400 Body height 165.1 cm Kyrie Vogtpkins FAMILY RESOURCE MANAGEMENT SPECIALIST-C Work Phone: [facility] 12-14-2024 16:23-0400 Body mass index (BMI) [Ratio] 23.4 kg/m2 Kyrie Vogtpkins FAMILY RESOURCE MANAGEMENT SPECIALIST-C Work Phone: [facility] 12-14-2024 16:23-0400 Body weight 64 kg Kyrie Vogtpkins FAMILY RESOURCE MANAGEMENT SPECIALIST-C Work Phone: [facility] 12-13-2024 15:25-0400 Body temperature 97 [degF] Kyrie Trego FAMILY RESOURCE MANAGEMENT SPECIALIST-C Work Phone: [facility] 12-13-2024 15:25-0400 Diastolic blood pressure 74 mm[Hg] Kyrie Lozano FAMILY RESOURCE MANAGEMENT SPECIALIST-C Work Phone: [facility] 12-13-2024 15:25-0400 Heart rate 61 /min Kyrie Lozano FAMILY RESOURCE MANAGEMENT SPECIALIST-C Work Phone: [facility] 12-13-2024 15:25-0400 Respiratory rate 16 /min Kyrie Lozano FAMILY RESOURCE MANAGEMENT SPECIALIST-C Work Phone: [facility] 12-13-2024 15:25-0400 SaO2% (BldA) [Mass fraction] 99 % Kyrie Lozano FAMILY RESOURCE MANAGEMENT SPECIALIST-C Work Phone: [facility] 12-13-2024 15:25-0400 Systolic blood pressure 136 mm[Hg] Kyrie Vogtpkins FAMILY RESOURCE MANAGEMENT SPECIALIST-C Work Phone: [facility] 12-13-2024 10:42-0400 Body height 165.1 cm Kyrie Vogtpkins FAMILY RESOURCE MANAGEMENT SPECIALIST-C Work Phone: [facility] 12-13-2024 10:42-0400 Body mass index (BMI) [Ratio] 22.4 kg/m2 Kyrie Vogtpkins FAMILY RESOURCE MANAGEMENT SPECIALIST-C Work Phone: [facility] 12-13-2024 10:42-0400 Body weight 61.1 kg Kyrie Vogtpkins FAMILY RESOURCE MANAGEMENT SPECIALIST-C Work Phone: [facility] 11-07-2024 08:26-0400 Body height 165.1 cm Kyrie Vogtpkins FAMILY RESOURCE MANAGEMENT SPECIALIST-C Work Phone: [facility] 11-07-2024 08:25-0400 Body mass index (BMI) [Ratio] 22.5 kg/m2 Kyrie Vogtpkins FAMILY RESOURCE MANAGEMENT SPECIALIST-C Work Phone: [facility] 11-07-2024 08:25-0400 Body temperature 96.8 [degF] Kyrie Vogtpkins FAMILY RESOURCE MANAGEMENT SPECIALIST-C Work Phone: [facility] 11-07-2024 08:25-0400 Body weight 61.46 kg Kyrie Marta FAMILY RESOURCE MANAGEMENT SPECIALIST-C Work Phone: [facility] 11-07-2024 08:25-0400 Diastolic blood pressure 69 mm[Hg] Kyrie Zapatakins FAMILY RESOURCE MANAGEMENT SPECIALIST-C Work Phone: [facility] 11-07-2024 08:25-0400 Heart rate 64 /min Kyrie Vogtpkins FAMILY RESOURCE MANAGEMENT SPECIALIST-C Work Phone: [facility] 11-07-2024 08:25-0400 Respiratory rate 16 /min Kyrie Lozano FAMILY RESOURCE MANAGEMENT SPECIALIST-C Work Phone: [facility] 11-07-2024 08:25-0400 SaO2% (BldA) [Mass fraction] 97 % Kyrie Lozano FAMILY RESOURCE MANAGEMENT SPECIALIST-C Work Phone: [facility] 11-07-2024 08:25-0400 Systolic blood pressure 110 mm[Hg] Kyrie Vogtpkins FAMILY RESOURCE MANAGEMENT SPECIALIST-C Work Phone: [facility] 11-07-2024 08:03-0400 Body mass index (BMI) [Ratio] 22.5 kg/m2 Kyrie Vogtpkins FAMILY RESOURCE MANAGEMENT SPECIALIST-C Work Phone: [facility] 11-07-2024 08:03-0400 Body temperature 96.8 [degF] Kyrie Vogtpkins FAMILY RESOURCE MANAGEMENT SPECIALIST-C Work Phone: [facility] 11-07-2024 08:03-0400 Body weight 61.46 kg Kyrie Vogtpkins FAMILY RESOURCE MANAGEMENT SPECIALIST-C Work Phone: [facility] 11-07-2024 08:03-0400 Diastolic blood pressure 69 mm[Hg] Kyrie Marta FAMILY RESOURCE MANAGEMENT SPECIALIST-C Work Phone: [facility] 11-07-2024 08:03-0400 Heart rate 64 /min Kyrie Vogtpkins FAMILY RESOURCE MANAGEMENT SPECIALIST-C Work Phone: [facility] 11-07-2024 08:03-0400 Respiratory rate 16 /min Kyrie Vogtpkins FAMILY RESOURCE MANAGEMENT SPECIALIST-C Work Phone: [facility] 11-07-2024 08:03-0400 SaO2% (BldA) [Mass fraction] 97 % Kyrie Marta FAMILY RESOURCE MANAGEMENT SPECIALIST-C Work Phone: [facility] 11-07-2024 08:03-0400 Systolic blood pressure 110 mm[Hg] Kyrie Vogtpkins FAMILY RESOURCE MANAGEMENT SPECIALIST-C Work Phone: [facility] 08-12-2024 10:32-0400 Body height 165.1 cm Kyrie Vogtpkins FAMILY RESOURCE MANAGEMENT SPECIALIST-C Work Phone: [facility] 08-12-2024 09:54-0400 Body mass index (BMI) [Ratio] 22.1 kg/m2 Kyrie Vogtpkins FAMILY RESOURCE MANAGEMENT SPECIALIST-C Work Phone: [facility] 08-12-2024 09:54-0400 Body temperature 96.5 [degF] Kyrie Lozano FAMILY RESOURCE MANAGEMENT SPECIALIST-C Work Phone: [facility] 08-12-2024 09:54-0400 Body weight 60.52 kg Kyrie Lozano FAMILY RESOURCE MANAGEMENT SPECIALIST-C Work Phone: [facility] 08-12-2024 09:54-0400 Diastolic blood pressure 72 mm[Hg] Kyrie Lozano FAMILY RESOURCE MANAGEMENT SPECIALIST-C Work Phone: [facility] 08-12-2024 09:54-0400 Heart rate 75 /min Kyrie Lozano FAMILY RESOURCE MANAGEMENT SPECIALIST-C Work Phone: [facility] 08-12-2024 09:54-0400 Respiratory rate 18 /min Kyrie Vogtpkins FAMILY RESOURCE MANAGEMENT SPECIALIST-C Work Phone: [facility] 08-12-2024 09:54-0400 SaO2% (BldA) [Mass fraction] 100 % Kyrie Trego FAMILY RESOURCE MANAGEMENT SPECIALIST-C Work Phone: [facility] 08-12-2024 09:54-0400 Systolic blood pressure 115 mm[Hg] Kyrie Lozano FAMILY RESOURCE MANAGEMENT SPECIALIST-C Work Phone: [facility] 07-24-2024 21:54-0400 Body temperature 99.2 [degF] Kyrie Lozano FAMILY RESOURCE MANAGEMENT SPECIALIST-C Work Phone: [facility] 07-24-2024 21:54-0400 Diastolic blood pressure 72 mm[Hg] Kyrie Lozano FAMILY RESOURCE MANAGEMENT SPECIALIST-C Work Phone: [facility] 07-24-2024 21:54-0400 Heart rate 77 /min Kyrie Vogtpkins FAMILY RESOURCE MANAGEMENT SPECIALIST-C Work Phone: [facility] 07-24-2024 21:54-0400 Respiratory rate 19 /min Kyrie Lozano FAMILY RESOURCE MANAGEMENT SPECIALIST-C Work Phone: [facility] 07-24-2024 21:54-0400 SaO2% (BldA) [Mass fraction] 99 % Kyrie Lozano FAMILY RESOURCE MANAGEMENT SPECIALIST-C Work Phone: [facility] 07-24-2024 21:54-0400 Systolic blood pressure 114 mm[Hg] Kyrie Vogtpkins FAMILY RESOURCE MANAGEMENT SPECIALIST-C Work Phone: [facility] 07-24-2024 17:18-0400 Body height 165.1 cm Kyrie Vogtpkins FAMILY RESOURCE MANAGEMENT SPECIALIST-C Work Phone: [facility] 07-24-2024 17:18-0400 Body mass index (BMI) [Ratio] 22.5 kg/m2 Kyrie Vogtpkins FAMILY RESOURCE MANAGEMENT SPECIALIST-C Work Phone: [facility] 07-24-2024 17:18-0400 Body weight 61.41 kg Kyrie Vogtpkins FAMILY RESOURCE MANAGEMENT SPECIALIST-C Work Phone: [facility] 07-16-2024 08:01-0400 Body mass index (BMI) [Ratio] 23.6 kg/m2 Kyrie Trego FAMILY RESOURCE MANAGEMENT SPECIALIST-C Work Phone: [facility] 07-16-2024 08:01-0400 Body temperature 97 [degF] Kyrie Vogtpkins FAMILY RESOURCE MANAGEMENT SPECIALIST-C Work Phone: [facility] 07-16-2024 08:01-0400 Body weight 64.58 kg Kyrie Vogtpkins FAMILY RESOURCE MANAGEMENT SPECIALIST-C Work Phone: [facility] 07-16-2024 08:01-0400 Diastolic blood pressure 70 mm[Hg] Kyrie Lozano FAMILY RESOURCE MANAGEMENT SPECIALIST-C Work Phone: [facility] 07-16-2024 08:01-0400 Heart rate 60 /min Kyrie Vogtpkins FAMILY RESOURCE MANAGEMENT SPECIALIST-C Work Phone: [facility] 07-16-2024 08:01-0400 Respiratory rate 18 /min Kyrie Vogtpkins FAMILY RESOURCE MANAGEMENT SPECIALIST-C Work Phone: [facility] 07-16-2024 08:01-0400 SaO2% (BldA) [Mass fraction] 100 % Kyrie Vogtpkins FAMILY RESOURCE MANAGEMENT SPECIALIST-C Work Phone: [facility] 07-16-2024 08:01-0400 Systolic blood pressure 129 mm[Hg] Kyrie Vogtpkins FAMILY RESOURCE MANAGEMENT SPECIALIST-C Work Phone: [facility] 07-15-2024 08:31-0400 Body mass index (BMI) [Ratio] 22.5 kg/m2 Kyrie Vogtpkins FAMILY RESOURCE MANAGEMENT SPECIALIST-C Work Phone: [facility] 07-15-2024 08:31-0400 Body temperature 98.4 [degF] Kyrie Vogtpkins FAMILY RESOURCE MANAGEMENT SPECIALIST-C Work Phone: [facility] 07-15-2024 08:31-0400 Body weight 61.4 kg Kryie Vogtpkins FAMILY RESOURCE MANAGEMENT SPECIALIST-C Work Phone: [facility] 07-15-2024 08:31-0400 Diastolic blood pressure 65 mm[Hg] Kyrie Vogtpkins FAMILY RESOURCE MANAGEMENT SPECIALIST-C Work Phone: [facility] 07-15-2024 08:31-0400 Heart rate 64 /min Kyrie Marta FAMILY RESOURCE MANAGEMENT SPECIALIST-C Work Phone: [facility] 07-15-2024 08:31-0400 Respiratory rate 18 /min Kyrie Trego FAMILY RESOURCE MANAGEMENT SPECIALIST-C Work Phone: [facility] 07-15-2024 08:31-0400 SaO2% (BldA) [Mass fraction] 100 % Kyrie Trego FAMILY RESOURCE MANAGEMENT SPECIALIST-C Work Phone: [facility] 07-15-2024 08:31-0400 Systolic blood pressure 105 mm[Hg] Kyrie Lozano FAMILY RESOURCE MANAGEMENT SPECIALIST-C Work Phone: [facility] 07-11-2024 08:06-0400 Body mass index (BMI) [Ratio] 23.6 kg/m2 Kyrie Lozano FAMILY RESOURCE MANAGEMENT SPECIALIST-C Work Phone: [facility] 07-11-2024 08:06-0400 Body temperature 97.5 [degF] Kyrie Vogtpkins FAMILY RESOURCE MANAGEMENT SPECIALIST-C Work Phone: [facility] 07-11-2024 08:06-0400 Body weight 64.52 kg Kryie Lozano FAMILY RESOURCE MANAGEMENT SPECIALIST-C Work Phone: [facility] 07-11-2024 08:06-0400 Diastolic blood pressure 72 mm[Hg] Kyrie Vogtpkins FAMILY RESOURCE MANAGEMENT SPECIALIST-C Work Phone: [facility] 07-11-2024 08:06-0400 Heart rate 49 /min Kyrie Vogtpkins FAMILY RESOURCE MANAGEMENT SPECIALIST-C Work Phone: [facility] 07-11-2024 08:06-0400 Respiratory rate 18 /min Kyrie Lozano FAMILY RESOURCE MANAGEMENT SPECIALIST-C Work Phone: [facility] 07-11-2024 08:06-0400 SaO2% (BldA) [Mass fraction] 100 % Kyrie Vogtpkins FAMILY RESOURCE MANAGEMENT SPECIALIST-C Work Phone: [facility] 07-11-2024 08:06-0400 Systolic blood pressure 114 mm[Hg] Kyrie Vogtpkins FAMILY RESOURCE MANAGEMENT SPECIALIST-C Work Phone: [facility] 07-08-2024 08:33-0400 Body mass index (BMI) [Ratio] 22.8 kg/m2 Kyrie Vogtpkins FAMILY RESOURCE MANAGEMENT SPECIALIST-C Work Phone: [facility] 07-08-2024 08:33-0400 Body temperature 98.2 [degF] Kyrie Vogtpkins FAMILY RESOURCE MANAGEMENT SPECIALIST-C Work Phone: [facility] 07-08-2024 08:33-0400 Body weight 62.39 kg Kyrie Trego FAMILY RESOURCE MANAGEMENT SPECIALIST-C Work Phone: [facility] 07-08-2024 08:33-0400 Diastolic blood pressure 65 mm[Hg] Kyrie Vogtpkins FAMILY RESOURCE MANAGEMENT SPECIALIST-C Work Phone: [facility] 07-08-2024 08:33-0400 Heart rate 55 /min Kyrie Vogtpkins FAMILY RESOURCE MANAGEMENT SPECIALIST-C Work Phone: [facility] 07-08-2024 08:33-0400 Respiratory rate 18 /min Kyrie Vogtpkins FAMILY RESOURCE MANAGEMENT SPECIALIST-C Work Phone: [facility] 07-08-2024 08:33-0400 SaO2% (BldA) [Mass fraction] 100 % Kyrie Lozano FAMILY RESOURCE MANAGEMENT SPECIALIST-C Work Phone: [facility] 07-08-2024 08:33-0400 Systolic blood pressure 106 mm[Hg] Kyrie Lozano FAMILY RESOURCE MANAGEMENT SPECIALIST-C Work Phone: [facility] 07-04-2024 08:01-0400 Body mass index (BMI) [Ratio] 23.6 kg/m2 Kyrie Marta FAMILY RESOURCE MANAGEMENT SPECIALIST-C Work Phone: [facility] 07-04-2024 08:01-0400 Body temperature 96.9 [degF] Kyrie Trego FAMILY RESOURCE MANAGEMENT SPECIALIST-C Work Phone: [facility] 07-04-2024 08:01-0400 Body weight 64.52 kg Kyrie Trego FAMILY RESOURCE MANAGEMENT SPECIALIST-C Work Phone: [facility] 07-04-2024 08:01-0400 Diastolic blood pressure 70 mm[Hg] Kyrie Zapatakins FAMILY RESOURCE MANAGEMENT SPECIALIST-C Work Phone: [facility] 07-04-2024 08:01-0400 Heart rate 60 /min Kyrie Lozano FAMILY RESOURCE MANAGEMENT SPECIALIST-C Work Phone: [facility] 07-04-2024 08:01-0400 Respiratory rate 16 /min Kyrie Lozano FAMILY RESOURCE MANAGEMENT SPECIALIST-C Work Phone: [facility] 07-04-2024 08:01-0400 SaO2% (BldA) [Mass fraction] 98 % Kyrie Lozano FAMILY RESOURCE MANAGEMENT SPECIALIST-C Work Phone: [facility] 07-04-2024 08:01-0400 Systolic blood pressure 109 mm[Hg] Kyrie Vogtpkins FAMILY RESOURCE MANAGEMENT SPECIALIST-C Work Phone: [facility] 07-01-2024 08:39-0400 Body mass index (BMI) [Ratio] 23.5 kg/m2 Kyrie Lozano FAMILY RESOURCE MANAGEMENT SPECIALIST-C Work Phone: [facility] 07-01-2024 08:39-0400 Body temperature 98.2 [degF] Kyrie Vogtpkins FAMILY RESOURCE MANAGEMENT SPECIALIST-C Work Phone: [facility] 07-01-2024 08:39-0400 Body weight 64.15 kg Kyrie Trego FAMILY RESOURCE MANAGEMENT SPECIALIST-C Work Phone: [facility] 07-01-2024 08:39-0400 Diastolic blood pressure 60 mm[Hg] Kyrie Lozano FAMILY RESOURCE MANAGEMENT SPECIALIST-C Work Phone: [facility] 07-01-2024 08:39-0400 Heart rate 58 /min Kyrie Vogtpkins FAMILY RESOURCE MANAGEMENT SPECIALIST-C Work Phone: [facility] 07-01-2024 08:39-0400 Respiratory rate 18 /min Kyrie Vogtpkins FAMILY RESOURCE MANAGEMENT SPECIALIST-C Work Phone: [facility] 07-01-2024 08:39-0400 SaO2% (BldA) [Mass fraction] 100 % Kyrie Trego FAMILY RESOURCE MANAGEMENT SPECIALIST-C Work Phone: [facility] 07-01-2024 08:39-0400 Systolic blood pressure 104 mm[Hg] Kyrie Vogtpkins FAMILY RESOURCE MANAGEMENT SPECIALIST-C Work Phone: [facility] 06-26-2024 08:12-0400 Body mass index (BMI) [Ratio] 24.7 kg/m2 Kyrie Marta FAMILY RESOURCE MANAGEMENT SPECIALIST-C Work Phone: [facility] 06-26-2024 08:12-0400 Body temperature 97 [degF] Kyrie Lozano FAMILY RESOURCE MANAGEMENT SPECIALIST-C Work Phone: [facility] 06-26-2024 08:12-0400 Body weight 67.27 kg Kyrie Marta FAMILY RESOURCE MANAGEMENT SPECIALIST-C Work Phone: [facility] 06-26-2024 08:12-0400 Diastolic blood pressure 68 mm[Hg] Kyrie Lozano FAMILY RESOURCE MANAGEMENT SPECIALIST-C Work Phone: [facility] 06-26-2024 08:12-0400 Heart rate 56 /min Kyrie Lozano FAMILY RESOURCE MANAGEMENT SPECIALIST-C Work Phone: [facility] 06-26-2024 08:12-0400 Respiratory rate 16 /min Kyrie Marta FAMILY RESOURCE MANAGEMENT SPECIALIST-C Work Phone: [facility] 06-26-2024 08:12-0400 SaO2% (BldA) [Mass fraction] 99 % Kyrie Lzoano FAMILY RESOURCE MANAGEMENT SPECIALIST-C Work Phone: [facility] 06-26-2024 08:12-0400 Systolic blood pressure 128 mm[Hg] Kyrie Lozano FAMILY RESOURCE MANAGEMENT SPECIALIST-C Work Phone: [facility] 06-24-2024 12:29-0400 Diastolic blood pressure 63 mm[Hg] Kyrie Lozano FAMILY RESOURCE MANAGEMENT SPECIALIST-C Work Phone: [facility] 06-24-2024 12:29-0400 Heart rate 54 /min Kyrie Marta FAMILY RESOURCE MANAGEMENT SPECIALIST-C Work Phone: [facility] 06-24-2024 12:29-0400 Systolic blood pressure 123 mm[Hg] Kyrie Lozano FAMILY RESOURCE MANAGEMENT SPECIALIST-C Work Phone: [facility] 06-24-2024 08:42-0400 Body mass index (BMI) [Ratio] 24.3 kg/m2 Kyrie Lozano FAMILY RESOURCE MANAGEMENT SPECIALIST-C Work Phone: [facility] 06-24-2024 08:42-0400 Body temperature 98.3 [degF] Kyrie Lozano FAMILY RESOURCE MANAGEMENT SPECIALIST-C Work Phone: [facility] 06-24-2024 08:42-0400 Body weight 66.25 kg Kyrie Lozano FAMILY RESOURCE MANAGEMENT SPECIALIST-C Work Phone: [facility] 06-24-2024 08:42-0400 Diastolic blood pressure 67 mm[Hg] Kyrie Vogtpkins FAMILY RESOURCE MANAGEMENT SPECIALIST-C Work Phone: [facility] 06-24-2024 08:42-0400 Heart rate 59 /min Kyrie Lozano FAMILY RESOURCE MANAGEMENT SPECIALIST-C Work Phone: [facility] 06-24-2024 08:42-0400 Respiratory rate 18 /min Kyrie Lozano FAMILY RESOURCE MANAGEMENT SPECIALIST-C Work Phone: [facility] 06-24-2024 08:42-0400 SaO2% (BldA) [Mass fraction] 100 % Kyrie Vogtpkins FAMILY RESOURCE MANAGEMENT SPECIALIST-C Work Phone: [facility] 06-24-2024 08:42-0400 Systolic blood pressure 118 mm[Hg] Kyrie Vogtpkins FAMILY RESOURCE MANAGEMENT SPECIALIST-C Work Phone: [facility] 06-19-2024 08:05-0500 Body mass index (BMI) [Ratio] 24 kg/m2 Kyrie Vogtpkins FAMILY RESOURCE MANAGEMENT SPECIALIST-C Work Phone: [facility] 06-19-2024 08:05-0500 Body temperature 97.8 [degF] Kyrie Lozano FAMILY RESOURCE MANAGEMENT SPECIALIST-C Work Phone: [facility] 06-19-2024 08:05-0500 Body weight 65.51 kg Kyrie Vogtpkins FAMILY RESOURCE MANAGEMENT SPECIALIST-C Work Phone: [facility] 06-19-2024 08:05-0500 Diastolic blood pressure 62 mm[Hg] Kyrie Vogtpkins FAMILY RESOURCE MANAGEMENT SPECIALIST-C Work Phone: [facility] 06-19-2024 08:05-0500 Heart rate 63 /min Kyrie Vogtpkins FAMILY RESOURCE MANAGEMENT SPECIALIST-C Work Phone: [facility] 06-19-2024 08:05-0500 Respiratory rate 16 /min Kyrie Vogtpkins FAMILY RESOURCE MANAGEMENT SPECIALIST-C Work Phone: [facility] 06-19-2024 08:05-0500 SaO2% (BldA) [Mass fraction] 98 % Kyrie Lozano FAMILY RESOURCE MANAGEMENT SPECIALIST-C Work Phone: [facility] 06-19-2024 08:05-0500 Systolic blood pressure 98 mm[Hg] Kyrie Lozano FAMILY RESOURCE MANAGEMENT SPECIALIST-C Work Phone: [facility] 06-14-2024 08:13-0500 Body temperature 97.6 [degF] Kyrie Lozano FAMILY RESOURCE MANAGEMENT SPECIALIST-C Work Phone: [facility] 06-14-2024 08:13-0500 Diastolic blood pressure 64 mm[Hg] Kyrie Lozano FAMILY RESOURCE MANAGEMENT SPECIALIST-C Work Phone: [facility] 06-14-2024 08:13-0500 Heart rate 56 /min Kyrie Lozano FAMILY RESOURCE MANAGEMENT SPECIALIST-C Work Phone: [facility] 06-14-2024 08:13-0500 Respiratory rate 18 /min Kyrie Lozano FAMILY RESOURCE MANAGEMENT SPECIALIST-C Work Phone: [facility] 06-14-2024 08:13-0500 SaO2% (BldA) [Mass fraction] 100 % Kyrie Lozano FAMILY RESOURCE MANAGEMENT SPECIALIST-C Work Phone: [facility] 06-14-2024 08:13-0500 Systolic blood pressure 101 mm[Hg] Kyrie Lozano FAMILY RESOURCE MANAGEMENT SPECIALIST-C Work Phone: [facility] 06-14-2024 06:25-0500 Body mass index (BMI) [Ratio] 24 kg/m2 Kyrie Lozano FAMILY RESOURCE MANAGEMENT SPECIALIST-C Work Phone: [facility] 06-14-2024 06:25-0500 Body weight 65.7 kg Kyrie Marta FAMILY RESOURCE MANAGEMENT SPECIALIST-C Work Phone: [facility] 06-11-2024 10:37-0500 Body height 165.1 cm Roel Heath MD Work Phone: [facility] 06-11-2024 10:37-0500 Body mass index (BMI) [Ratio] 24.1 kg/m2 Roel Heath MD Work Phone: [facility] 06-11-2024 10:37-0500 Body weight 65.7 kg Roel Heath MD Work Phone: [facility] 06-11-2024 10:37-0500 Diastolic blood pressure 78 mm[Hg] Roel Heath MD Work Phone: [facility] 06-11-2024 10:37-0500 Heart rate 69 /min Roel Heath MD Work Phone: [facility] 06-11-2024 10:37-0500 Systolic blood pressure 130 mm[Hg] Roel Heath MD Work Phone: [facility] 06-10-2024 07:56-0500 Body mass index (BMI) [Ratio] 24.6 kg/m2 Kyrie Lozano FAMILY RESOURCE MANAGEMENT SPECIALIST-C Work Phone: [facility] 06-10-2024 07:56-0500 Body weight 67.13 kg Kyrie Lozano FAMILY RESOURCE MANAGEMENT SPECIALIST-C Work Phone: [facility] 06-10-2024 07:56-0500 Diastolic blood pressure 76 mm[Hg] Kyrie Lozano FAMILY RESOURCE MANAGEMENT SPECIALIST-C Work Phone: [facility] 06-10-2024 07:56-0500 Respiratory rate 16 /min Kyrie Lozano FAMILY RESOURCE MANAGEMENT SPECIALIST-C Work Phone: [facility] 06-10-2024 07:56-0500 Systolic blood pressure 126 mm[Hg] Kyrie Lozano FAMILY RESOURCE MANAGEMENT SPECIALIST-C Work Phone: [facility] 05-24-2024 08:05-0500 Body mass index (BMI) [Ratio] 24.3 kg/m2 Kyrie Lozano FAMILY RESOURCE MANAGEMENT SPECIALIST-C Work Phone: [facility] 05-24-2024 08:05-0500 Body temperature 96.7 [degF] Kyrie Lozano FAMILY RESOURCE MANAGEMENT SPECIALIST-C Work Phone: [facility] 05-24-2024 08:05-0500 Body weight 66.33 kg Kyrie Lozano FAMILY RESOURCE MANAGEMENT SPECIALIST-C Work Phone: [facility] 05-24-2024 08:05-0500 Diastolic blood pressure 65 mm[Hg] Kyrie Vogtpkins FAMILY RESOURCE MANAGEMENT SPECIALIST-C Work Phone: [facility] 05-24-2024 08:05-0500 Heart rate 69 /min Kyrie Lozano FAMILY RESOURCE MANAGEMENT SPECIALIST-C Work Phone: [facility] 05-24-2024 08:05-0500 Respiratory rate 16 /min Kyrie Lozano FAMILY RESOURCE MANAGEMENT SPECIALIST-C Work Phone: [facility] 05-24-2024 08:05-0500 SaO2% (BldA) [Mass fraction] 100 % Kyrie Vogtpkins FAMILY RESOURCE MANAGEMENT SPECIALIST-C Work Phone: [facility] 05-24-2024 08:05-0500 Systolic blood pressure 109 mm[Hg] Kyrie Vogtpkins FAMILY RESOURCE MANAGEMENT SPECIALIST-C Work Phone: [facility] 05-21-2024 10:56-0500 Body mass index (BMI) [Ratio] 24.3 kg/m2 Kyrie Vogtpkins FAMILY RESOURCE MANAGEMENT SPECIALIST-C Work Phone: [facility] 05-21-2024 10:56-0500 Body temperature 97.3 [degF] Kyrie Vogtpkins FAMILY RESOURCE MANAGEMENT SPECIALIST-C Work Phone: [facility] 05-21-2024 10:56-0500 Body weight 66.28 kg Kyrie Vogtpkins FAMILY RESOURCE MANAGEMENT SPECIALIST-C Work Phone: [facility] 05-21-2024 10:56-0500 Diastolic blood pressure 71 mm[Hg] Kyrie Vogtpkins FAMILY RESOURCE MANAGEMENT SPECIALIST-C Work Phone: [facility] 05-21-2024 10:56-0500 Heart rate 57 /min Kyrie Vogtpkins FAMILY RESOURCE MANAGEMENT SPECIALIST-C Work Phone: [facility] 05-21-2024 10:56-0500 Respiratory rate 16 /min Kyrie Vogtpkins FAMILY RESOURCE MANAGEMENT SPECIALIST-C Work Phone: [facility] 05-21-2024 10:56-0500 SaO2% (BldA) [Mass fraction] 97 % Kyrie Vogtpkins FAMILY RESOURCE MANAGEMENT SPECIALIST-C Work Phone: [facility] 05-21-2024 10:56-0500 Systolic blood pressure 154 mm[Hg] Kyrie Lozano FAMILY RESOURCE MANAGEMENT SPECIALIST-C Work Phone: [facility] 05-10-2024 12:31-0500 Body temperature 97 [degF] Kyrie Vogtpkins FAMILY RESOURCE MANAGEMENT SPECIALIST-C Work Phone: [facility] 05-10-2024 12:31-0500 Diastolic blood pressure 72 mm[Hg] Kyrie Vogtpkins FAMILY RESOURCE MANAGEMENT SPECIALIST-C Work Phone: [facility] 05-10-2024 12:31-0500 Heart rate 58 /min Kyrie Vogtpkins FAMILY RESOURCE MANAGEMENT SPECIALIST-C Work Phone: [facility] 05-10-2024 12:31-0500 Respiratory rate 16 /min Kyrie Vogtpkins FAMILY RESOURCE MANAGEMENT SPECIALIST-C Work Phone: [facility] 05-10-2024 12:31-0500 SaO2% (BldA) [Mass fraction] 99 % Kyrie Vogtpkins FAMILY RESOURCE MANAGEMENT SPECIALIST-C Work Phone: [facility] 05-10-2024 12:31-0500 Systolic blood pressure 105 mm[Hg] Kyrie Lozano FAMILY RESOURCE MANAGEMENT SPECIALIST-C Work Phone: [facility] 05-10-2024 10:11-0500 Body mass index (BMI) [Ratio] 23.8 kg/m2 Kyrie Vogtpkins FAMILY RESOURCE MANAGEMENT SPECIALIST-C Work Phone: [facility] 05-10-2024 10:11-0500 Body weight 65 kg Kyrie Vogtpkins FAMILY RESOURCE MANAGEMENT SPECIALIST-C Work Phone: [facility] 04-30-2024 09:21-0500 Body mass index (BMI) [Ratio] 23.8 kg/m2 Kyrie Vogtpkins FAMILY RESOURCE MANAGEMENT SPECIALIST-C Work Phone: [facility] 04-30-2024 09:21-0500 Body temperature 97 [degF] Kyrie Marta FAMILY RESOURCE MANAGEMENT SPECIALIST-C Work Phone: [facility] 04-30-2024 09:21-0500 Body weight 64.86 kg Kyrie Marta FAMILY RESOURCE MANAGEMENT SPECIALIST-C Work Phone: [facility] 04-30-2024 09:21-0500 Diastolic blood pressure 71 mm[Hg] Kyrie Lozano FAMILY RESOURCE MANAGEMENT SPECIALIST-C Work Phone: [facility] 04-30-2024 09:21-0500 Heart rate 52 /min Kyrie Trego FAMILY RESOURCE MANAGEMENT SPECIALIST-C Work Phone: [facility] 04-30-2024 09:21-0500 Respiratory rate 18 /min Kyrie Trego FAMILY RESOURCE MANAGEMENT SPECIALIST-C Work Phone: [facility] 04-30-2024 09:21-0500 SaO2% (BldA) [Mass fraction] 100 % Kyrie Lozano FAMILY RESOURCE MANAGEMENT SPECIALIST-C Work Phone: [facility] 04-30-2024 09:21-0500 Systolic blood pressure 131 mm[Hg] Kyrie Lozano FAMILY RESOURCE MANAGEMENT SPECIALIST-C Work Phone: [facility] 04-25-2024 16:12-0500 Body mass index (BMI) [Ratio] 24 kg/m2 Kyrie Marta FAMILY RESOURCE MANAGEMENT SPECIALIST-C Work Phone: [facility] 04-25-2024 16:12-0500 Body temperature 98.6 [degF] Kyrie Lozano FAMILY RESOURCE MANAGEMENT SPECIALIST-C Work Phone: [facility] 04-25-2024 16:12-0500 Body weight 65.51 kg Kyrie Trego FAMILY RESOURCE MANAGEMENT SPECIALIST-C Work Phone: [facility] 04-25-2024 16:12-0500 Diastolic blood pressure 70 mm[Hg] Kyrie Lozano FAMILY RESOURCE MANAGEMENT SPECIALIST-C Work Phone: [facility] 04-25-2024 16:12-0500 Heart rate 57 /min Kyrie Lozano FAMILY RESOURCE MANAGEMENT SPECIALIST-C Work Phone: [facility] 04-25-2024 16:12-0500 Respiratory rate 18 /min Kyrie Trego FAMILY RESOURCE MANAGEMENT SPECIALIST-C Work Phone: [facility] 04-25-2024 16:12-0500 SaO2% (BldA) [Mass fraction] 98 % Kyrie Lozano FAMILY RESOURCE MANAGEMENT SPECIALIST-C Work Phone: [facility] 04-25-2024 16:12-0500 Systolic blood pressure 131 mm[Hg] Kyrie Lozano FAMILY RESOURCE MANAGEMENT SPECIALIST-C Work Phone: [facility] 2024 08:26-0500 Body mass index (BMI) [Ratio] 24.5 kg/m2 Kyrie Lozano FAMILY RESOURCE MANAGEMENT SPECIALIST-C Work Phone: [facility] 2024 08:26-0500 Body temperature 98.2 [degF] Kyrie Lozano FAMILY RESOURCE MANAGEMENT SPECIALIST-C Work Phone: [facility] 2024 08:26-0500 Body weight 66.81 kg Kyrie Lozano FAMILY RESOURCE MANAGEMENT SPECIALIST-C Work Phone: [facility] 2024 08:26-0500 Diastolic blood pressure 69 mm[Hg] Kyrie Lozano FAMILY RESOURCE MANAGEMENT SPECIALIST-C Work Phone: [facility] 2024 08:26-0500 Heart rate 66 /min Kyrie Lozano FAMILY RESOURCE MANAGEMENT SPECIALIST-C Work Phone: [facility] 2024 08:26-0500 Respiratory rate 18 /min Kyrie Lozano FAMILY RESOURCE MANAGEMENT SPECIALIST-C Work Phone: [facility] 2024 08:26-0500 SaO2% (BldA) [Mass fraction] 100 % Kyrie Lozano FAMILY RESOURCE MANAGEMENT SPECIALIST-C Work Phone: [facility] 2024 08:26-0500 Systolic blood pressure 116 mm[Hg] Kyrie Lozano FAMILY RESOURCE MANAGEMENT SPECIALIST-C Work Phone: [facility] 04-04-2024 15:17-0500 Body mass index (BMI) [Ratio] 23.9 kg/m2 Kyrie Vogtpkins FAMILY RESOURCE MANAGEMENT SPECIALIST-C Work Phone: [facility] 04-04-2024 15:17-0500 Body temperature 98.8 [degF] Kyrie Lozano FAMILY RESOURCE MANAGEMENT SPECIALIST-C Work Phone: [facility] 04-04-2024 15:17-0500 Body weight 65.31 kg Kyrie Lozano FAMILY RESOURCE MANAGEMENT SPECIALIST-C Work Phone: [facility] 04-04-2024 15:17-0500 Diastolic blood pressure 74 mm[Hg] Kyrie Lozano FAMILY RESOURCE MANAGEMENT SPECIALIST-C Work Phone: [facility] 04-04-2024 15:17-0500 Heart rate 67 /min Kyrie Lozano FAMILY RESOURCE MANAGEMENT SPECIALIST-C Work Phone: [facility] 04-04-2024 15:17-0500 Respiratory rate 16 /min Kyrie Lozano FAMILY RESOURCE MANAGEMENT SPECIALIST-C Work Phone: [facility] 04-04-2024 15:17-0500 SaO2% (BldA) [Mass fraction] 100 % Kyrie Lozano FAMILY RESOURCE MANAGEMENT SPECIALIST-C Work Phone: [facility] 04-04-2024 15:17-0500 Systolic blood pressure 126 mm[Hg] Kyrie Lozano FAMILY RESOURCE MANAGEMENT SPECIALIST-C Work Phone: [facility] 05-01-2023 16:10-0500 Body height [address] KEYANNA STEELE DO [facility] 05-01-2023 16:10-0500 Body temperature 96.98 [degF] DR KEYANNA STEELE DO [facility] 05-01-2023 16:10-0500 Body weight 63.[address] KEYANNA STEELE DO [facility] 05-01-2023 16:10-0500 Diastolic Blood Pressure Non-Invasive 80 mm[Hg] DR KEYANNA STEELE DO [facility] 05-01-2023 16:10-0500 Heart rate 90 /min DR KEYANNA STEELE DO [facility] 05-01-2023 16:10-0500 Respiratory rate 18 /min DR KEYANNA STEELE DO [facility] 05-01-2023 16:10-0500 Systolic Blood Pressure Non-Invasive 161 mm[Hg] DR KEYANNA STEELE DO [facility] Encounters Encounter Date Encounter Type Care Provider Facility Start: 02-03-2025 ambulatory Kyrie Lozano FAMILY RESOURCE MANAGEMENT SPECIALIST Facility:[facility] Start: 12-14-2024 End: 12-17-2024 Evaluation and management of inpatient Dr. Pankaj Lou MD -[facility] 3 Work Phone: Start: 12-14-[address] [facility] Dr. Pankaj Lou MD -Medical Surgical 3 Work Phone: Start: 12-14-2024 ambulatory Kyrie Lozano FAMILY RESOURCE MANAGEMENT SPECIALIST-C Work Phone: -Medical Surgical 3 Start: 12-13-2024 End: 12-13-2024 Admission to [facility] day surgery center Dr. Pankaj Lou MD -[facility] Start: 12-13-2024 End: 12-13-2024 ambulatory Kyrie Lozano FAMILY RESOURCE MANAGEMENT SPECIALIST-C Work Phone: -[facility] Day [facility] Start: 11-07-[address] Donny Martinez MD -[facility] Start: 11-07-2024 End: 11-07-[address] Mahad Villatoro DO -[facility] Work Phone: Start: 11-07-2024 End: 11-07-2024 ambulatory Kyrie Lozano FAMILY RESOURCE MANAGEMENT SPECIALIST-C Work Phone: -[facility] Start: 10-30-2024 End: 10-30-2024 ambulatory Kyrie Lozano FAMILY RESOURCE MANAGEMENT SPECIALIST-C Work Phone: -[facility] Start: 10-30-2024 End: 10-30-[address] Donny Martinez MD -Cat Scan [facility] Work Phone: Start: 10-30-[address] Donny Martinez MD -[facility] Start: 10-30-2024 End: 10-30-2024 ambulatory Kyrie Lozano FAMILY RESOURCE MANAGEMENT SPECIALIST Facility:[facility] Start: 08-12-2024 End: 08-12-[address] [facility] Work Phone: Start: 08-12-2024 End: 08-12-2024 ambulatory Kyrie Lozano FAMILY RESOURCE MANAGEMENT SPECIALIST Facility:[facility] Start: 07-24-2024 End: 07-24-2024 Emergency department patient visit Kyrie Lozano FAMILY RESOURCE MANAGEMENT SPECIALIST-C Work Phone: -Emergency Department Work Phone: Start: 07-16-2024 Non-patient / Non-visit [facility] Work Phone: Start: 07-16-2024 ambulatory Kyrie Lozano FAMILY RESOURCE MANAGEMENT SPECIALIST Facility:[facility] Start: 07-16-[address] Donny Martinez MD -Radiation Oncology Start: 07-16-2024 End: 07-16-[address] [facility] Work Phone: Start: 07-16-2024 End: 07-16-2024 ambulatory Kyrie Lozano FAMILY RESOURCE MANAGEMENT SPECIALIST Facility:[facility] Start: 07-15-2024 End: 07-15-[address] Donny Martinez MD -[facility] Work Phone: Start: 07-15-2024 End: 07-15-2024 ambulatory Kyrie Lozano FAMILY RESOURCE MANAGEMENT SPECIALIST Facility:[facility] Start: 07-11-2024 End: 07-11-[address] [facility] Work Phone: Start: 07-11-2024 End: 07-11-2024 ambulatory Kyrie Lozano FAMILY RESOURCE MANAGEMENT SPECIALIST Facility:[facility] Start: 07-08-2024 End: 07-08-[address] Donny Martinez MD -[facility] Work Phone: Start: 07-08-2024 End: 07-08-2024 ambulatory Kyrie Lozano FAMILY RESOURCE MANAGEMENT SPECIALIST Facility:[facility] Start: 07-04-2024 End: 07-04-[address] Mahad Villatoro DO [facility] Work Phone: Start: 07-04-2024 End: 07-04-2024 ambulatory Kyrie Lozano FAMILY RESOURCE MANAGEMENT SPECIALIST Facility:[facility] Start: 07-01-2024 End: 07-01-[address] Donny Martinez MD -[facility] Work Phone: Start: 07-01-2024 End: 07-01-2024 ambulatory Kyrie Lozano FAMILY RESOURCE MANAGEMENT SPECIALIST Facility:[facility] Start: 06-26-2024 End: 06-26-[address] Mahad Villatoro DO [facility] Work Phone: Start: 06-26-2024 End: 06-26-2024 ambulatory Kyrie Lozano FAMILY RESOURCE MANAGEMENT SPECIALIST Facility:[facility] Start: 06-24-2024 Non-patient / Non-visit Dr. Donny Ruiz MD -[facility] Start: 06-24-2024 End: 06-24-[address] Donny Martinez MD -[facility] Work Phone: Start: 06-24-2024 End: 06-24-2024 ambulatory Kyrie Lozano NP Facility:[facility] Start: 06-21-2024 ambulatory Mahad Villatoro Facility: [facility] Start: 06-21-2024 Non-patient / Non-visit Dr. Mahad Villatoro DO [facility] Start: 06-20-2024 ambulatory Kyrie Lozano FAMILY RESOURCE MANAGEMENT SPECIALIST Facility:[facility] Start: 06-20-2024 Non-patient / [facility] Start: 06-19-2024 End: 06-19-2024 Patient encounter procedure Shantel Norris NP- -[facility] Work Phone: Start: 06-19-2024 End: 06-19-2024 ambulatory Kyrie Lozano FAMILY RESOURCE MANAGEMENT SPECIALIST Facility:[facility] Start: 06-17-2024 ambulatory Kyrie Lozano FAMILY RESOURCE MANAGEMENT SPECIALIST Facility:[facility] Start: 06-17-2024 Non-patient / Non-visit Dr. Mahad Villatoro DO -[facility] Start: 06-14-2024 ambulatory Kyrie Lozano FAMILY RESOURCE MANAGEMENT SPECIALIST Facility:[facility] Start: 06-14-2024 Non-patient / Non-visit Dr. Buddy Mccallum MD -[facility] Start: 06-14-2024 End: 06-14-2024 Admission to same day surgery center Dr. Buddy Mccallum MD -Surgical Day Care Start: 06-14-2024 End: 06-14-2024 ambulatory Kyrie Lozano FAMILY RESOURCE MANAGEMENT SPECIALIST Facility:[facility] Start: 06-12-2024 End: 06-12-2024 Patient encounter procedure Alvaro Davey Research Coordinator Urology Comment on above: Malignant neoplasm o f overlapping sites of bladder (HCC) (Primary Dx) Start: 06-11-2024 End: 06-11-2024 Patient encounter procedure Roel Heath MD Work Phone: Urology Comment on above: Malignant neoplasm o f overlapping sites of bladder (HCC) (Primary Dx); History of bladder cancer; Occupational exposure to other risk factors Start: 06-11-2024 End: 06-14-2024 ambulatory Roel Heath MD Work Phone: Urology Start: 06-10-2024 End: 06-10-[address] Buddy Mccallum MD -[facility] Work Phone: Start: 06-10-2024 End: 06-10-2024 ambulatory Kyrie Lozano FAMILY RESOURCE MANAGEMENT SPECIALIST Facility:[facility] Start: 05-24-2024 End: 05-24-[address] Mahad Villatoro DO [facility] Work Phone: Start: 05-24-2024 End: 05-24-2024 ambulatory Kyrie Lozano FAMILY RESOURCE MANAGEMENT SPECIALIST Facility:[facility] Start: 05-21-2024 End: 05-21-[address] Jules Fuentes MD -[facility] Work Phone: Start: 05-21-2024 End: 05-21-2024 ambulatory Kyrie Lozano FAMILY RESOURCE MANAGEMENT SPECIALIST Facility:[facility] Start: 05-10-2024 Non-patient / Non-visit Dr. Young Samuels DO -[facility] Start: 05-10-2024 End: 05-10-2024 Admission to same day surgery center Dr. Young Samuels DO -Endoscopy Work Phone: Start: 05-10-2024 End: 05-10-2024 ambulatory Kyrie Lozano FAMILY RESOURCE MANAGEMENT SPECIALIST Facility:[facility] Start: 05-08-2024 ambulatory Kyrie Lozano FAMILY RESOURCE MANAGEMENT SPECIALIST Facility[facility] Start: 05-08-2024 Non-patient / Non-visit Dr. Young Samuels DO -[facility] Start: 04-30-2024 End: 04-30-[address] Young Samuels DO -[facility] Work Phone: Start: 04-30-2024 End: 04-30-2024 ambulatory Kyrie Lozano FAMILY RESOURCE MANAGEMENT SPECIALIST Facility:[facility] Start: 04-30-2024 End: 04-30-2024 ambulatory Kyrie Lozano FAMILY RESOURCE MANAGEMENT SPECIALIST Facility:[facility] Start: 04-25-2024 End: 04-25-[address] Donny Martinez MD -[facility] Work Phone: Start: 04-25-2024 End: 04-25-2024 ambulatory Kyrie Lozano FAMILY RESOURCE MANAGEMENT SPECIALIST Facility:[facility] Start: 2024 End: [address] Donny Martinez MD -[facility] Work Phone: Start: 2024 End: 2024 ambulatory Kyrie Lozano FAMILY RESOURCE MANAGEMENT SPECIALIST Facility:[facility] Start: 04-11-2024 End: 04-11-[address] Donny Martinez MD -[facility] Work Phone: Start: 04-11-2024 End: 04-11-2024 ambulatory Kyrie Lozano FAMILY RESOURCE MANAGEMENT SPECIALIST Facility:[facility] Start: 04-04-2024 End: 04-04-[address] Donny Martinez MD -[facility] Work Phone: Start: 04-04-2024 End: 04-04-2024 ambulatory Kyrie Lozano FAMILY RESOURCE MANAGEMENT SPECIALIST Facility:[facility] Start: 03-20-2024 ambulatory Kyrie Lozano FAMILY RESOURCE MANAGEMENT SPECIALIST Facility:[facility] Start: 03-13-2024 End: 03-13-2024 ambulatory Kyrie Lozano FAMILY RESOURCE MANAGEMENT SPECIALIST Facility:[facility] Start: 01-08-2024 End: 01-08-2024 ambulatory KYRIE LOZANO STEEL PICKLER - ORDER PROCESSING MANAGER Facility:[facility] Start: 01-08-2024 End: 01-08-2024 Patient encounter procedure KYRIE VOGTPKINS [employer]EL P[employer]LER - ORDER PROCESSING MANAGER [facility] Start: 12-29-2023 End: 12-29-2023 ambulatory KYRIE Faye MARTA STEEL PICKLER - ORDER PROCESSING MANAGER Facility:[facility] Start: 12-29-2023 End: 12-29-2023 Patient encounter procedure KYRIE ZAPATAKINS [employer] PICKLER - ORDER PROCESSING MANAGER [facility] Start: 12-26-2023 End: 12-30-2023 ambulatory KYRIE Neyda VOGTMARTA STEEL PICKLER - ORDER PROCESSING MANAGER Facility:[facility] Start: 12-26-2023 End: 12-30-2023 Outreach Lab KYRIE VOGTPKINS STEEL PICKLER - ORDER PROCESSING MANAGER [facility] Start: 05-01-2023 End: 05-01-2023 Emergency department patient visit DR KEYANNA STEELE DO [facility] Procedures Date Procedure Procedure Detail Performing Clinician Start: 12-17-2024 Estimated creatinine clearance Kyrie Lozano FAMILY RESOURCE MANAGEMENT SPECIALIST-C Work Phone: Start: 12-14-2024 Exploratory laparotomy Kyrie Lozano FAMILY RESOURCE MANAGEMENT SPECIALIST-C Work Phone: Start: 12-14-2024 Computed tomography of abdomen and pelvis with intravenous contrast Kyrie Lozano FAMILY RESOURCE MANAGEMENT SPECIALIST-C Work Phone: Start: 12-14-2024 Estimated creatinine clearance Kyrie Lozano FAMILY RESOURCE MANAGEMENT SPECIALIST-C Work Phone: Start: 12-13-2024 [place] operation, litholapaxy Kyrie Lozano FAMILY RESOURCE MANAGEMENT SPECIALIST-C Work Phone: Start: 12-13-2024 Transurethral resect ion of bladder neoplasm Kyrie Lozano FAMILY RESOURCE MANAGEMENT SPECIALIST-C Work Phone: Start: 11-07-2024 Procedure Kyrie sparks FAMILY RESOURCE MANAGEMENT SPECIALIST-C Work Phone: Start: 10-30-2024 CT of thorax, abdome n and pelvis with contrast Kyrie Lozano FAMILY RESOURCE MANAGEMENT SPECIALIST-C Work Phone: Start: 10-30-2024 Estimated creatinine clearance Kyrie Loznao FAMILY RESOURCE MANAGEMENT SPECIALIST-C Work Phone: Start: 08-12-2024 Urnls dip stick/tabl et reagent auto microscopy Kyrie Lozano FAMILY RESOURCE MANAGEMENT SPECIALIST-C Work Phone: Start: 08-12-2024 Serum inorganic phos phate measurement Kyrie Vogtpkins FAMILY RESOURCE MANAGEMENT SPECIALIST-C Work Phone: Start: 07-24-2024 X-ray of chest, PA a nd lateral views Kyrie Lozano FAMILY RESOURCE MANAGEMENT SPECIALIST-C Work Phone: Start: 07-24-2024 Estimated creatinine clearance Kyrie Lozano FAMILY RESOURCE MANAGEMENT SPECIALIST-C Work Phone: Start: 07-24-2024 Urnls dip stick/tabl et reagent auto microscopy Kyrie Lozano FAMILY RESOURCE MANAGEMENT SPECIALIST-C Work Phone: Start: 07-24-2024 Blood culture Kyrie gordon FAMILY RESOURCE MANAGEMENT SPECIALIST-C Work Phone: Start: 07-24-2024 SARS-CoV-2, Influenz a & RSV (PCR) Kyrie Lozano FAMILY RESOURCE MANAGEMENT SPECIALIST-C Work Phone: Start: 07-24-2024 Urine culture Kyrie gordon FAMILY RESOURCE MANAGEMENT SPECIALIST-C Work Phone: Start: 06-17-2024 Creatinine blood Mukul neyda Lozano FAMILY RESOURCE MANAGEMENT SPECIALIST-C Work Phone: Start: 06-14-2024 Plain chest X-ray Bertha Zapatakins FAMILY RESOURCE MANAGEMENT SPECIALIST-C Work Phone: Start: 06-14-2024 Fluoroscopic guidance Yara Lozano FAMILY RESOURCE MANAGEMENT SPECIALIST-C Work Phone: Start: 04-23-2024 Positron emission tomography with computed tomography Kyrie Lozano FAMILY RESOURCE MANAGEMENT SPECIALIST-C Work Phone: Start: 04-11-2024 CT of thorax, abdome n and pelvis with contrast Kyrie Lozano FAMILY RESOURCE MANAGEMENT SPECIALIST-C Work Phone: Start: 04-04-2024 Measurement of renal function Kyrie Vogtpkins FAMILY RESOURCE MANAGEMENT SPECIALIST-C Work Phone: Comment on above: GFR Calc Start: 04-04-2024 Procedure Kyrie sparks FAMILY RESOURCE MANAGEMENT SPECIALIST-C Work Phone: Plan of Treatment Date Care Activity Detail Author Start: 2030 RSV Vaccine (1 - 1-d ose 75+ series) RSV Vaccine (1 - 1-dose 75+ series) [facility] Start: 01-02-2027 Screening for malign ant neoplasm of colon [facility] Start: 12-17-2024 Patient discharge [facility] Start: 12-15-2024 Measuring intake and output [facility] Start: 12-15-2024 Provision of activit y privileges [facility] Start: 12-15-2024 Application of intermittent pneumatic compression device [facility] Start: 12-14-2024 Measuring intake and output [facility] Start: 12-14-2024 Deep breathing and coughing exercises [facility] Start: 12-14-2024 Admission procedure [facility] Start: 12-14-2024 Assessment of risk o f venous thromboembolism [facility] Start: 12-14-2024 Following clinical pathway protocol [facility] Start: 12-14-2024 Provision of activit y privileges [facility] Start: 12-14-2024 Taking patient vital signs [facility] Start: 12-14-2024 Vital signs measurements [facility] Start: 12-14-2024 End: 12-14-2024 [facility] Start: 12-14-2024 Exploratory laparotomy Explora tory Laparotomy (Bilateral) [facility] Start: 12-14-2024 Following clinical pathway protocol [facility] Start: 12-14-2024 Hospital admission, emergency, from emergency room, medical nature [facility] Start: 12-14-2024 End: 12-15-2024 [facility] Start: 12-14-2024 Bacteria identified in Blood by Culture Blood Culture [facility] Start: 12-14-2024 Blood culture Blood Culture [facility] Start: 12-13-2024 Ambulation without limitation [facility] Start: 12-13-2024 Medical regimen orde rs management [facility] Start: 12-13-2024 Medication education [facility] Start: 12-13-2024 End: 12-13-2024 Patient discharge [facility] Start: 12-13-2024 Taking patient vital signs [facility] Start: 12-13-2024 [facility] Start: 10-30-2024 Venous catheter care management [facility] Start: 07-24-2024 [facility] Start: 07-24-2024 End: 07-24-2024 [facility] Start: 07-24-2024 [facility] Start: 07-24-2024 Bacteria identified in Blood by Culture Blood Culture [facility] Start: 07-24-2024 Bacteria identified in Urine by Culture Urine Culture [facility] Start: 06-24-2024 Venous catheter care management [facility] Start: 06-14-2024 Anesthesia access ce ntral venous circulation ANESTH VASCULAR ACCESS [facility] Start: 06-14-2024 Insj tunneled ctr va d w/subq port age 5 yr/> INSERT TUNNELED CV CATH [facility] Start: 06-14-2024 Patient discharge [facility] Start: 05-24-2024 Patient referral [facility] Work Phone: Start: 05-10-2024 Anesthesia closed ch est w/bronchoscopy nos ANESTH CHEST PROCEDURE [facility] Start: 05-10-2024 Brnchsc ebus guided sampl 3/> node station/strux BRONCH EBUS SAMPLNG 3/> NODE [facility] Start: 05-10-2024 Patient discharge [facility] Start: 04-25-2024 Patient referral [facility] Work Phone: Start: 04-17-2024 Advance Directive Discussion Advance Directive Discussion [facility] Start: 12-17-2023 Covid-19 Vaccine ( season) Covid-19 Vaccine ( season) [facility] Start: 12-17-2023 Influenza vaccination Influenza Vacc ine (#1) [facility] Start: 2005 Pneumococcal Vaccine : 50+ (1 of 1 - PCV) Pneumococcal Vaccine: 50+ (1 of 1 - PCV) [facility] Start: 2005 Shingrix Vaccine (1 of 2) Mccracken grix Vaccine (1 of 2) [facility] Start: 2000 Diabetes Screening Diabetes Screenin g [facility] Start: 2000 Screening for malign ant neoplasm of colon [facility] Start: 1990 Lipid panel Lipid Screening [facility] Start: 1974 Urine microalbumin profile DTaP,Tdap,Td Vaccine (1 - Tdap) [facility] Start: 1973 Anxiety Screening Anxiety Screening [facility] Start: 1973 Depression Screening Depression Scre ening [facility] Start: 1973 Hepatitis C screening Hepatitis C [facility] CBC W Auto Different ial panel - Blood [facility] Comprehensive metabo lic 2000 panel - Serum or Plasma [facility] CT Abdomen and Pelvi s W contrast IV [facility] CT Abdomen and Pelvi s W contrast IV [facility] Lactate dehydrogenas e measurement [facility] Magnesium measurement [facility] Microscopic observat ion [Identifier] in Body fluid by Cyto stain [facility] Patient Education ED Fever Contr ol (Adult) [facility] Work Phone: Patient referral [facility] Work Phone: Positron emission tomography with computed tomography [facility] Serum inorganic phos phate measurement [facility] UA DIP, URINE (POC) UA DIP, URIN E (POC) Lab Routine Screening for genitourinary condition 1 Occurrences starting 06/11/2024 [facility] Work Phone: Comment on above: 1 Occurrences starti ng 06/11/2024 Urinalysis complete panel - Urine [facility] Urine culture [facility] Payers Date Payer Category Payer Unknown [id number] 2024 Private Health Insurance [place] [employer] [employer] S[employer]DED [id number] 2024 Self-pay 2023 Medicare [id number] 2023 Unknown [id number] 2023 Unknown [id number] 2020 Medicare [id number] 1955 Unknown [id number]. 627 1955 Unknown [id number] .0.1.758896.3.579.2. 627 1955 Unknown [id number] .840.1.136618.3.579.2. 627 1955 Unknown [id number] .840.1.460708.3.579.2. 627 Unknown [id number] 2.16840.1.557543.3.579.2. 462 Unknown [id number] 2.16840.1.712035.3.579.2. 462 Unknown [id number] 2.840.1.695907.3.579.2. 462 Unknown [id number] 2.840.1.323043.3.579.2. 462 Unknown [id number] 2.16.840.1.444457.3.579.2. 462 Unknown [id number] 2.16.840.1.438551.3.579.2. 462 Unknown [id number] 2.16.840.1.480743.3.579.2. 462 Unknown [id number] 2.16.840.1.754081.3.579.2. 462 Unknown [id number] 2.16.840.1.428261.3.579.2. 462 Unknown [id number] 2.16.840.1.395771.3.579.2. 462 Unknown [id number] 2.16.840.1.956223.3.579.2. 462 Unknown [id number] 2.16.840.1.465899.3.579.2. 462 Unknown [id number] 2.16.840.1.780165.3.579.2. 462 Unknown [id number] 2.16.840.1.029442.3.579.2. 462 Unknown [id number] 2.16.840.1.579430.3.579.2. 462 Unknown [id number] 2.16.840.1.228611.3.579.2. 462 Unknown [id number] 2.16.840.1.700180.3.579.2. 462 Unknown [id number] 2.16.840.1.656582.3.579.2. 462 Unknown [id number] 2.16.840.1.799670.3.579.2. 462 Unknown [id number] 2.16.840.1.528012.3.579.2. 462 Unknown [id number] 2.16.840.1.391683.3.579.2. 462 Unknown [id number] 2.16.840.1.381407.3.579.2. 462 Unknown [id number] 2.16.840.1.272815.3.579.2. 462 Unknown [id number] 2.16.840.1.582186.3.579.2. 462 Unknown [id number] 2.16.840.1.611999.3.579.2. 462 Unknown [id number] 2.16.840.1.624660.3.579.2. 462 Unknown [id number] 2.16.840.1.588618.3.579.2. 462 Unknown [id number] 2.16.840.1.948040.3.579.2. 462 Unknown [id number] 2.16.840.1.585512.3.579.2. 462 Unknown [id number] 2.16.840.1.688618.3.579.2. 462 Unknown [id number] 2.16.840.1.480048.3.579.2. 462 Unknown [id number] 2.16.840.1.439327.3.579.2. 462 Unknown [id number] 2.16.840.1.827919.3.579.2. 462 Unknown [id number] 2.16.840.1.886033.3.579.2. 462 Unknown [id number] 2.16.840.1.408998.3.579.2. 462 Unknown [id number] 2.16.840.1.807648.3.579.2. 462 Unknown [id number] 2.16.840.1.779749.3.579.2. 462 Unknown [id number] 2.16.840.1.035084.3.579.2. 462 Unknown [id number] 2.16840.1.960991.3.579.2. 462 Unknown [id number] 2.16.840.1.630923.3.579.2. 462 Social History Date Type Detail Facility Start: 05-01-2023 End: 12-15-2024 Tobacco smoking status Never smoked tobacco (finding) [facility] Sex Assigned At Sex [facility] Tobacco smoking stat [facility] Tobacco smoking consumption unknown [facility] Start: 06-11-2024 History of Social function [facility] Start: 06-11-2024 Area Deprivation Index [facility] National Score (1-10 0), lower number is lower risk 47 [facility] Start: 1955 Sex assigned at Not on file [facility] [facility] Start: [facility]24[facility]24 Sex Male (finding) [facility] Start: 1955 Sex Assigned At Male W [facility] Medical Equipment Procedure Code Equipment Code Equipment Origin al Text Equipment Identifier Dates Insertion, vascular access port ([id number]) Vascular port/catheter [id number] FDA Start: 06-14-2024 Goals Date Patient Goal Desired Activity /State Functional Status Date Assessment Result Facility 12-17-2024 Functional status Chair [facility] Work Phone: 05-01-2023 Functional Status Up ad maxim [facility] 05-01-2023 Functional Status Standard Safet y ID band on, Call device within reach, Bed in low position, Wheels locked [facility] Mental Status Date Assessment Result Facility 12-17-2024 Cognitive function Voice/Name [facility] Work Phone: 12-13-2024 Cognitive function Voice/Name [facility] Work Phone: 07-24-2024 Cognitive function Level Of Cons ciousness Awake;Alert;Appropriate;Follow s Commands [facility] Work Phone: 06-14-2024 Cognitive function Voice/Name [facility] Work Phone: 05-10-2024 Cognitive function Level Of Consciousness Sedated [facility] Work Phone: 05-10-2024 Cognitive function Arousable To Voice/Nam e [facility] Work Phone: 05-01-2023 Mental Status Orientation Oriented x 4 [facility] Clinical Notes 05-01-2023 to 12-17-2024 Note Date & Type Note Facility 12-17-2024 Discharge summary Note Date/Time December 17, 2024 7:27am [facility] Medical Records Department [address] [place] [address] Instructions for Home/Discharge Instructions 12/17/24 0726 MR#: [id number] Acct: [id number] Name: BETHANY WILKINS Rep #:[id number] 5 : 1955 69 From: Pankaj Lou MD PCP: Kyrie Lozano NP-Génesis Sta tus:ADM IN Discharge Instructions Procedure Urology Diet Discharge Diet: No restrictions Activity Discharge Activity: Return to Normal Activity and May Not Drive (while taking narcotic pain medications.) Weight Bearing Status: Weight bearing as tolerated Dressing / Incision Call your doctor if you observe: Fever of 101 or Higher, Inability to have a bowel movement and Uncontrolled pain Cleanse incision/area with: Soap & Water Catheter: Fung to leg bag and Fung to large bag Drain: Coggon Follow Up Care Please Follow Up With: Pankaj Lou MD When: Call [phone] for an appointment Test Results: Test results from this visit will be discussed in further detail at your follow-up appointment, if applicable. Discharge Plan Admission Admit Date/Time: 12/14/24 23:11 Attending Provider: Pankaj Lou Primary Care Provider: Kyrie Lozano NP Discharge Orders/Prescriptions Prescriptions: No Action prochlorperazine maleate 10 mg tablet 10 mg PO Q6H PRN (Reason: nausea and vomiting) Qty: 30 2RF ondansetron 8 mg tablet,disintegrating 8 mg PO Q8H PRN (Reason: nausea and vomiting) Qty: 30 2RF lidocaine-prilocaine 2.5-2.5 % cream 1 applic topical ONCE PRN (Reason: port access) 30 Days Qty: 30 2RF ciprofloxacin HCl [Cipro] 500 mg tablet 500 mg PO BID Qty: 14 0RF oxycodone 5 mg tablet 5 mg PO Q6H PRN (Reason: pain) 7 Days Qty: 20 0RF Referrals / Follow Up: Kyrie Lozano NP, NP-C [Primary Care Provider] - 12/17/24726<Electronically signed by Pankaj Lou MD>Pankaj Lou MD CC: HARSHAL Lozano ~ Signed [facility] Work Phone: 1(766) 923-383509-02-2025 Discharge summary Author Pankaj Lou [facility] Note Date/Time December 17, 2024 7:26am [facility] Medical Records Department [address] [facility] [place] [address] Discharge Summary 12/17/24722 MR#: [id number] Acct: [id number] Name: BETHANY WILKINS Rep #:[id number] 4 : 1955 69 From: Pankaj Lou MD PCP: HARSHAL Durant Sta tus:ADM IN Location: [place] [address] Providers Date of Admission: 12/14/24 Date of Discharge: 12/17/24 Primary Care Physician: HARSHAL Durant Reason For Visit: PERFORATED BLADDER, BLADDER CANCER Diagnosis Discharge Diagnosis (1) Free fluid in pelvis: Status: Acute Code(s): R18.8 - Other ascites (2) Decreased urine output: Status: Acute Code(s): R34 - Anuria and oliguria (3) Acute kidney failure: Status: Acute Code(s): N17.9 - Acute kidney failure, unspecified (4) Cancer: Status: Acute Code(s): C80.1 - Malignant (primary) neoplasm, unspecified Plan: 69-year-old male who was found to have invasive bladder cancer he underwent radiation treatment to the bladder developed a large necrotic mass in the area was radiated this was resected yesterday I am concerned about a bladder perforation and he taken back to surgery today for diagnostic cystoscopy possible open exploration. Medications at Discharge Home Medications lidocaine-prilocaine 2.5 %-2.5 % topical cream 1 applic topical ONCE PRN port access 30 days #30 grams 06/19/24 ondansetron 8 mg disintegrating tablet 8 mg PO Q8H PRN nausea and vomiting #30 tabs 06/19/24 prochlorperazine maleate 10 mg tablet 10 mg PO Q6H PRN nausea and vomiting #30 tabs 06/19/24 ciprofloxacin HCl 500 mg tablet (Cipro) 500 mg PO BID #14 tabs 12/13/24 oxycodone 5 mg tablet 5 mg PO Q6H PRN pain 7 days #20 tabs 12/13/24 Hospital Course Operations - (repair of bladder rupture) Summary of Care Provided Hospital Course: patient returned to hospital after TURBT, ct scan with free fluid, no urine output shawn. for bladder ruputer, bladder thinned out from turbt and also had radiaton therapy which weakend the bladder wall. Take to surgery for ex lap, found bladder ruptured and repaired in two layers, post op did well. home with 2weeks JORDYN drain removed. home with antibiotics and pain meds. reg diet Physical Exam Const alert and oriented x3 General Appearance: [...] intact bilaterally Psych affect normal Appearance: appropriate Weight / BMI Weight Weight: 65.771 kg Body Mass Index (BMI) 24.1 ABG / Lab / Microbiology Data 12/17/24 05:40 12/17/24 05:40 Laboratory: Laboratory Results - last 24 hr 12/17/24 05:40: WBC 6.2, RBC 3.76 L, Hgb 11.7 L, Hct 33.7 L, MCV 89.6, MCH 31.1,MCHC 34.7, RDW Std Deviation 41.3, RDW Coeff of Lori 12.5, Plt Count 205, MPV 8.9, Immature Gran % (Auto) 1.000 H, Neut % (Auto) 80.3 H, Lymph % (Auto) 8.4 L,[place] % (Auto) 6.6, Eos % (Auto) 3.4, Baso % (Auto) 0.3, Absolute Neuts (auto) 5.0, Absolute Lymphs (auto) 0.52 L, Nucleated RBC % 0, Sodium 139, Potassium 4.0, Chloride 107, Carbon Dioxide 23.7, Anion Gap 9, BUN 14, Creatinine 0.82, Estim Creat Clear Calc 73.96, Est GFR (MDRD) Non-Af 95, BUN/Creatinine Ratio 17.5, Glucose 114 H, Calcium 9.0 D/C Instructions Discharge Activity: May Not Drive Weight Bearing Status: Weight bearing as tolerated Call your doctor if you observe: Fever of 101 or Higher, Inability to have a bowel movement and Uncontrolled pain Cleanse incision/area with: Soap & Water Catheter: Fung to leg bag and Fung to large bag Drain: Coggon DC O2, CPAP, BIPAP Needs Home O2 Discharge instructions: No DC home with Oxygen: No Meaningful Use Info Meaningful Use Meaningful Use Diagnoses (Choose all that apply): None applicable Discharge Plan Admission Admit Date/Time: 12/14/24 23:11 Attending Provider: Pankaj Lou Primary Care Provider: Kyrie Lozano NP Discharge Orders/Prescriptions Prescriptions: No Action prochlorperazine maleate 10 mg tablet 10 mg PO Q6H PRN (Reason: nausea and vomiting) Qty: 30 2RF ondansetron 8 mg tablet,disintegrating 8 mg PO Q8H PRN (Reason: nausea and vomiting) Qty: 30 2RF lidocaine-prilocaine 2.5-2.5 % cream 1 applic topical ONCE PRN (Reason: port access) 30 Days Qty: 30 2RF ciprofloxacin HCl [Cipro] 500 mg tablet 500 mg PO BID Qty: 14 0RF oxycodone 5 mg tablet 5 mg PO Q6H PRN (Reason: pain) 7 Days Qty: 20 0RF Referrals / Follow Up: Kyrie Lozano FAMILY RESOURCE MANAGEMENT SPECIALIST, FAMILY RESOURCE MANAGEMENT SPECIALIST-C [Primary Care Provider] - 12/17/24 0726 <Electronically signed by Pankaj Lou MD> Cosigner Signature (if applicable): CC: HARSHAL Lozano; Dr. Pankaj Lou MD~ Signed [facility] Work Phone: 1(250) 167-924409-02-2025 Discharge summary [facility] Medical Records Department [address] [facility] [place] [address] Instructions for Home/Discharge Instructions 12/17/24 0726 MR#: [id number] Acct: [id number] Name: BETHANY WILKINS Rep #:[id number] 5 : 1955 69 From: Pankaj Lou MD PCP: HARSHAL Durant Sta tus:ADM IN Discharge Instructions Procedure Urology Diet Discharge Diet: No restrictions Activity Discharge Activity: Return to Normal Activity and May Not Drive (while taking narcotic pain medications.) Weight Bearing Status: Weight bearing as tolerated Dressing / Incision Call your doctor if you observe: Fever of 101 or Higher, Inability to have a bowel movement and Uncontrolled pain Cleanse incision/area with: Soap & Water Catheter: Fung to leg bag and Fung to large bag Drain: Coggon Follow Up Care Please Follow Up With: Pankaj Lou MD When: Call [phone] for an appointment Test Results: Test results from this visit will be discussed in further detail at your follow- up appointment, if applicable. Discharge Plan Admission Admit Date/Time: 12/14/24 23:11 Attending Provider: Pankaj Lou Primary Care Provider: Kyrie Lozano NP Discharge Orders/Prescriptions Prescriptions: No Action prochlorperazine maleate 10 mg tablet 10 mg PO Q6H PRN (Reason: nausea and vomiting) Qty: 30 2RF ondansetron 8 mg tablet,disintegrating 8 mg PO Q8H PRN (Reason: nausea and vomiting) Qty: 30 2RF lidocaine-prilocaine 2.5-2.5 % cream 1 applic topical ONCE PRN (Reason: port access) 30 Days Qty: 30 2RF ciprofloxacin HCl [Cipro] 500 mg tablet 500 mg PO BID Qty: 14 0RF oxycodone 5 mg tablet 5 mg PO Q6H PRN (Reason: pain) 7 Days Qty: 20 0RF Referrals / Follow Up: Kyrie Lozano NP, FAMILY RESOURCE MANAGEMENT SPECIALIST-C [Primary Care Provider] - 12/17/24 0727Pankaj Lou MD CC: FAMILY RESOURCE MANAGEMENT SPECIALIST-C Kyrie Lozano ~ Signed [facility]09-02-2025 Discharge summary [facility] Medical Records Department [address] [place] [address] Discharge Summary 12/17/24 0723 MR#: [id number] Acct: [id number] Name: BETHANY WILKINS Rep #:[id number] 4 : 1955 69 From: Pankaj Lou MD PCP: HARSHAL Durant Sta tus:ADM IN Location: [place] [address] Providers Date of Admission: 12/14/24 Date of Discharge: 12/17/24 Primary Care Physician: HARSHAL Durant Reason For Visit: PERFORATED BLADDER, BLADDER CANCER Diagnosis Discharge Diagnosis (1) Free fluid in pelvis: Status: Acute Code(s): R18.8 - Other ascites (2) Decreased urine output: Status: Acute Code(s): R34 - Anuria and oliguria (3) Acute kidney failure: Status: Acute Code(s): N17.9 - Acute kidney failure, unspecified (4) Cancer: Status: Acute Code(s): C80.1 - Malignant (primary) neoplasm, unspecified Plan: 69-year-old male who was found to have invasive bladder cancer he underwent radiation treatment to the bladder developed a large necrotic mass in the area was radiated this was resected yesterday I am concerned about a bladder perforation and he taken back to surgery today for diagnostic cystoscopypossible open exploration. Medications at Discharge Home Medications lidocaine-prilocaine 2.5 %-2.5 % topical cream 1 applic topical ONCE PRN port access 30 days #30 grams 06/19/24 ondansetron 8 mg disintegrating tablet 8 mg PO Q8H PRN nausea and vomiting #30 tabs 06/19/24 prochlorperazine maleate 10 mg tablet 10 mg PO Q6H PRN nausea and vomiting #30 tabs 06/19/24 ciprofloxacin HCl 500 mg tablet (Cipro) 500 mg PO BID #14 tabs 12/13/24 oxycodone 5 mg tablet 5 mg PO Q6H PRN pain 7 days #20 tabs 12/13/24 Hospital Course Operations - (repair of bladder rupture) Summary of Care Provided Hospital Course: patient returned to hospital after TURBT, ct scan with free fluid, no urine output shawn. for bladderruputer, bladder thinned out from turbt and also had radiaton therapy which weakend the bladder wall. Take to surgery for ex lap, found bladder ruptured and repaired in two layers, post op did well. home with 2weeks JORDYN drain removed. home with antibiotics and pain meds. reg diet Physical Exam Const alert and oriented x3 General Appearance: [...] intact bilaterally Psych affect normal Appearance: appropriate Weight / BMI Weight Weight: 65.771 kg Body Mass Index (BMI) 24.1 ABG / Lab / Microbiology Data 12/17/24 05:40 12/17/24 05:40 Laboratory: Laboratory Results - last 24 hr 12/17/24 05:40: WBC 6.2, RBC 3.76 L, Hgb 11.7 L, Hct 33.7 L, MCV 89.6, MCH 31.1,MCHC 34.7, RDW Std Deviation 41.3, RDW Coeff of Lori 12.5, Plt Count 205, MPV 8.9, Immature Gran % (Auto) 1.000 H, Neut % (Auto) 80.3 H, Lymph % (Auto) 8.4 L,[place] % (Auto) 6.6, Eos % (Auto) 3.4, Baso % (Auto) 0.3, Absolute Neuts (auto) 5.0, Absolute Lymphs (auto) 0.52 L, Nucleated RBC % 0, Sodium 139, Potassium 4.0, Chloride 107, Carbon Dioxide 23.7, Anion Gap 9, BUN 14, Creatinine 0.82, Estim Creat Clear Calc 73.96,Est GFR (MDRD) Non-Af 95, BUN/Creatinine Ratio 17.5, Glucose 114 H, Calcium 9.0 D/C Instructions Discharge Activity: May Not Drive Weight Bearing Status: Weight bearing as tolerated Call your doctor if you observe: Fever of 101 or Higher, Inability to have a bowel movement and Uncontrolled pain Cleanse incision/area with: Soap & Water Catheter: Fung to leg bag and Fung to large bag Drain: Coggon DC O2, CPAP, BIPAP Needs Home O2 Discharge instructions: No DC home with Oxygen: No Meaningful Use Info Meaningful Use Meaningful Use Diagnoses (Choose all that apply): None applicable Discharge Plan Admission Admit Date/Time: 12/14/24 23:11 Attending Provider: Pankaj Lou Primary Care Provider: Kyrie Lozano NP Discharge Orders/Prescriptions Prescriptions: No Action prochlorperazine maleate 10 mg tablet 10 mg PO Q6H PRN (Reason: nausea and vomiting) Qty: 30 2RF ondansetron 8 mg tablet,disintegrating 8 mg PO Q8H PRN (Reason: nausea and vomiting) Qty: 30 2RF lidocaine-prilocaine 2.5-2.5 % cream 1 applic topical ONCE PRN (Reason: port access) 30 Days Qty: 30 2RF ciprofloxacin HCl [Cipro] 500 mg tablet 500 mg PO BID Qty: 14 0RF oxycodone 5 mg tablet 5 mg PO Q6H PRN (Reason: pain) 7 Days Qty: 20 0RF Referrals / Follow Up: Kyrie Lozano NP, FAMILY RESOURCE MANAGEMENT SPECIALIST-C [Primary Care Provider] - 12/17/24 07 [facility] (if applicable): CC: HARSHAL Lozano; Dr. Pankaj Lou MD~ [facility]09-02-2025 [facility]08-31-2025 Progress note Author Pankaj Lou [facility] Note Date/Time December 15, 2024 9: 11am [facility] Medical Records Department [address] [place] [address] Progress Note - Urology 12/15/24 0910 MR#: [id number] Acct: [id number] Name: BETHANY WILKINS Rep #:[id number] 4 : 1955 69 From: Pankaj Lou MD PCP: HARSHAL Durant Sta tus:ADM IN [facility] Subjective Subjective s/p exploration and repair of bladder rupture doing well, labs look better, Cr down good urine output minimal JORDYN out adv full liquid diet iv antibiotics hydrationl. Objective Data Objective Data Vital Signs: Vital Signs Temp Pulse Resp BP Pulse Ox O2 Del Method 98.0 F 67 16 113/63 100 Room Air 12/15/24 07:42 12/15/24 07:42 12/15/24 07:42 12/15/24 07:42 12/15/24 07:42 12/15/24 07:42 Oxygen Delivery Method Room Air Weight: 65.771 kg Body Mass Index (BMI) 24.1 Intake & Output: Intake and Output for Last 24 Hours 12/13/24 12/14/24 12/15/24 23:59 23:59 23:59 Intake Total 1050 / 1050 925 / 925 Output Total 680 / 680 Balance 1030 / 1000 245 / 245 Lab / Micro Data 12/15/24 05:18 12/15/24 05:18 Labs: Laboratory Results - last 24 hr 12/14/24 17:52: WBC 18.6 H, RBC 4.22 L, Hgb 13.4, Hct 37.3 L, MCV 88.4, MCH 31.8, MCHC 35.9, RDW Std Deviation 41.5, RDW Coeff of Lori 12.8, Plt Count 257, MPV 8.9, Immature Gran % (Auto) 0.600, Neut % (Auto) 93.5 H, Lymph % (Auto) 2.4 L, [place] % (Auto) 3.4, Eos % (Auto) 0.0, Baso % (Auto) 0.1, Absolute Neuts (auto)17.3 H, Absolute Lymphs (auto) 0.45 L, Nucleated RBC % 0, Sodium 135, Potassium 4.4, Chloride 101, Carbon Dioxide 19.6 L, Anion Gap 15, BUN 45 H, Creatinine 3.92 H, Estim Creat Clear Calc 15.47 L, Est GFR (MDRD) Non-Af 16 L, BUN/Creatinine Ratio 11.6, Glucose 159 H, Calcium 9.0 12/14/24 20:18: Lactic Acid 1.7 12/15/24 05:18: WBC 10.6, RBC 3.59 L, Hgb 11.5 L, Hct 32.2 L, MCV 89.7, MCH 32.0, MCHC 35.7, RDW Std Deviation 42.8, RDW Coeff of Lori 13.0, Plt Count 225, MPV 9.2, Immature Gran % (Auto) 0.500, Neut % (Auto) 88.4 H, Lymph % (Auto) 4.9 L, [place] % (Auto) 6.0, Eos % (Auto) 0.1, Baso % (Auto) 0.1, Absolute Neuts (auto)9.4 H, Absolute Lymphs (auto) 0.52 L, Nucleated RBC % 0, Sodium 136, Potassium 4.4, Chloride 106, Carbon Dioxide 20.9 L, Anion Gap 10, BUN 33 H, Creatinine 2.18 H, Estim Creat Clear Calc 27.82 L, Est GFR (MDRD) Non-Af 32 L, BUN/Creatinine Ratio 14.9, Glucose 114 H, Calcium 8.4 Radiography Diagnostic Testing: Radiology Impression Abdomen/Pelvis CT 12/14/24 18:10 IMPRESSION: Free air bubbles around the liver. Moderate to prominent amount of free fluid. Perforated viscus is suggested. Perforated peptic ulcer is the most common cause, although other instances of perforated viscus not involving the stomach and duodenum are also seen from time to time. Reading Location: [facility] 12/15/2411 <Electronically signed by Pankaj Lou MD> Cosigner Signature (if applicable): CC: ~ Signed [facility] Work Phone: 1(639) 450-847908-31-2025 Progress note [facility] Medical Records Department [address] [place] [address] Progress Note - Urology 12/15/24 0910 MR#: [id number] Acct: [id number] Name: BETHANY WILKINS Rep #:[id number] 4 : 1955 69 From: Pankaj Lou MD PCP: HARSHAL Durant tus:ADM IN [facility] Subjective Subjective s/p exploration and repair of bladder rupture doing well, labs look better, Cr down good urine output minimal JORDYN out adv full liquid diet iv antibiotics hydrationl. Objective Data Objective Data Vital Signs: Vital Signs Temp Pulse Resp BP Pulse Ox O2 Del Method 98.0 F 67 16 113/63 100 Room Air 12/15/24 07:42 12/15/24 07:42 12/15/24 07:42 12/15/24 07:42 12/15/24 07:42 12/15/24 07:42 Oxygen Delivery Method Room Air Weight: 65.771 kg Body Mass Index (BMI) 24.1 Intake & Output: Intake and Output for Last 24 Hours 12/13/24 12/14/24 12/15/24 23:59 23:59 23:59 Intake Total 1050 / 1050 925 / 925 Output Total 680 / 680 Balance 1030 / 1000 245 / 245 Lab / Micro Data 12/15/24 05:18 12/15/24 05:18 Labs: Laboratory Results - last 24 hr 12/14/24 17:52: WBC 18.6 H, RBC 4.22 L, Hgb 13.4, Hct 37.3 L, MCV 88.4, MCH 31.8, MCHC 35.9, RDW Std Deviation 41.5, RDW Coeff of Lori 12.8, Plt Count 257, MPV 8.9, Immature Gran % (Auto) 0.600, Neut % (Auto) 93.5 H, Lymph % (Auto) 2.4 L, [place] % (Auto) 3.4, Eos % (Auto) 0.0, Baso % (Auto) 0.1, Absolute Neuts (auto)17.3 H, Absolute Lymphs (auto) 0.45 L, Nucleated RBC % 0, Sodium 135, Potassium 4.4,Chloride 101, Carbon Dioxide 19.6 L, Anion Gap 15, BUN 45 H, Creatinine 3.92 H, Estim Creat Clear Calc 15.47 L, Est GFR (MDRD) Non-Af 16 L, BUN/Creatinine Ratio 11.6, Glucose 159 H, Calcium 9.0 12/14/24 20:18: Lactic Acid 1.7 12/15/24 05:18: WBC 10.6, RBC 3.59 L, Hgb 11.5 L, Hct 32.2 L, MCV 89.7, MCH 32.0, MCHC 35.7, RDW Std Deviation 42.8, RDW Coeff of Lori 13.0, Plt Count 225, MPV 9.2, Immature Gran % (Auto) 0.500, Neut % (Auto) 88.4 H, Lymph % (Auto) 4.9 L, [place] % (Auto) 6.0, Eos % (Auto) 0.1, Baso % (Auto) 0.1, Absolute Neuts (auto)9.4 H, Absolute Lymphs (auto) 0.52 L, Nucleated RBC % 0, Sodium 136, Potassium 4.4, Chloride 106, Carbon Dioxide 20.9 L, Anion Gap 10, BUN 33 H, Creatinine 2.18 H, Estim Creat Clear Calc 27.82 L, Est GFR (MDRD) Non-Af 32 L, BUN/Creatinine Ratio 14.9, Glucose 114 H, Calcium 8.4 Radiography Diagnostic Testing: Radiology Impression Abdomen/Pelvis CT 12/14/24 18:10 IMPRESSION: Free air bubbles around the liver. Moderate to prominent amount of free fluid. Perforated viscus issuggested. Perforated peptic ulcer is the most common cause, although other instances of perforated viscus not involving the stomach and duodenum are also seen from time to time. Reading [facility] 12/15/24 0911 Cosigner Signature (if applicable): CC: ~ Signed [facility]08-30-2025 Procedure note [facility] Medical Records Department [address] [place] [address] Operative Report 12/14/24 2317 MR#: [id number] Acct: [id number] Name: BETHANY WILKINS Rep #:[id number] : 1955 69 From: Pankaj Lou MD PCP: HARSHAL Durant tus:ADM IN [facility] Operative Report (Standard) Operative Information Date of Procedure: 12/14/24 Pre-Operative Diagnosis: Bladder perforation Post-Operative Diagnosis: The same Surgery/Procedure Performed: Cystoscopy, exploratory laparotomy and repair of bladder perforation credit operations specialist: Yes Kennel Staff Member: Zac Correa Tasks completed by first coat sander: Opening, Closing, Opening & closing, Harvestinggrafts, Dissecting tissue, Removing tissue, Implanting device, Altering tissue, Insert Trochanter, Hemostasis: Clamp, Hemostasis: Tie, Hemostasis: Electrocautery, Trocar, Retracting and Other Type of Anesthesia: General RN Documented Start/Stop Times: Operation Date: 12/14/24 22:15 Case Time Anesthesia Start 12/14/24 09:54 Into Room 12/14/24 09:54 Procedure Start 12/14/24 10:20 Procedure Start Time: 10:20 Procedure Stop Time: 23:25 Select all DRAINS/GRAFTS/IMPLANTS that apply: Drains Drain details: jordyn drain jovanni Estimated Blood Loss: 25cc Specimen collected: No Description of surgery: 69-year-old male with a history of invasive bladder cancer who elected to have chemotherapy and radiation treatments to the bladder I then saw him in the office for follow-up he been having a lot of bladder pain and is found to have asignificant mount of calcifications stuck in the posterior wall the bladder and what appeared to be necrotic tissue in the bladder so I took him to surgery and use alaser to laser off the stones off the necrotic tissue and then very carefully tried to resect the necrotic tissue the bladder to get thinned out quite thin. So elected sent home with a catheter to see if this will heal properly then called me this today and said that the urine stopped coming out of the Fung catheter and the patient was having lower abdominal pain instructed her to go to theemergency room, in the emergency room workup was done CAT scan was done demonstrated significant amount of free fluid in the abdomen and no urine coming out of the Fung catheter I suspect that he must hada bladder perforation from the area that got thinned out and surgery from the resection of thenecrotic tissue and probably the bladder was thinned out from radiation as well and affected. So decided to take the patient back emergently for surgery for exploratory laparotomy suspected bladder perforation and plan for repair of the bladder perforation Patient was taken back to the operating room after induction of anesthesia by Dr. Mckinney he was placed supine on the table he was placed in dorsolithotomy position with legs in stirrups in low lithotomy plan is to do a cystoscopy firstand then probably convert to an open exploration through a lower midline incision. The penis and testicles and lower abdomen were prepped and draped in usual fashion, after this was prepped I went inside with the cystoscope but I got the scope into the bladder immediately had a significant return of urine anddark fluid and urine so at first I thought that the Fung catheter was just plugged but when I looked inside with the scope into the lens I saw immediately that the the scope was gone through a perforation in the back of the bladder so he had a perforation about a centimeter in size in the back of the bladder whichwas draining into the peritoneal cavity so at this point then left the Fung catheter out and then we mated midline incision below the umbilicus down to the through the skin the subcutaneous fat into the fascia open of the fascia in the midline put Jacklyn's on both into the fascia divided the rectus muscle muscle inthe midline and thenit into the peritoneal cavity sharply once again in the peritoneal cavity there was a significant amount of purulent urine I suspect is probably urine from the leak this was immediately suctioned outI then packed off the bowel with lap pads and we placed a Nellis into the abdomen and then weinspected the lower abdomen and fortunately we able to see the perforation in the bladder and the right in the posterior through the bladder there was a hole perforation. So this was then closed in 2 layers with a 0 Vicryl and a 2-0 Vicryl after closing this and put a catheter in the bladder we filled the bladder up no obvious leakage then I placed a JORDYN drain through a lateral stab incision left to drain JORDYN drain in the pelvis and then irrigated the bladder again we looked back in to the bladder withthe cystoscope the perforation the bladder was closed and there was no obvious hole and no significant amount of leakage from the bladder the bladder did distend nicely left a JORDYN drain below below the bladder and then we closed the fascia with a running 0 PDS and then weclosed the skin with runningsubcuticular 4-0 Monocryl and lidocaine and Marcaine was placed in the incision patient ascetic is currently being reversed we did irrigate out the abdomen copiously with over 2 L of saline to irrigate out and irrigated all quadrants out of the abdomen. Patient is currently being extubated and go to PACU and we will keep him on broad spectrum antibiotics and keep him n.p.o. for now and with gravity drainage Fung and a JORDYN drainage Surgical Findings: 1 cm perforation of the back of the bladder Complications Complications: No Admit VTE Documentation VTE Present on Admission: No VTE Mechan Device Prophylaxis: SCD's VTE Pharm Prophylaxis ordered?: No 12/14/247 Cosigner Signature (if applicable): CC: HARSHAL Lozano; Dr. Pankaj Lou MD~ Signed [facility]08-30-2025 History and physical note Author Pankaj Lou [facility] Note Date/Time December 14, 2024 8: 44pm [facility] Medical Records Department [address] [place] [address] History & Physical Exam 12/14/242041 MR#: [id number] Acct: [id number] Name: BETHANY WILKINS Rep #:[id number] : 1955 69 From: Pankaj Lou MD PCP: HARSHAL Durant tus:[place] [facility] Location: [place] HS887-0 HPI - General General Date of Service: 12/14/24 Chief Complaint: No urine output HPI Narrative BETHANY WILKINS, is a 69 M who presents to [...] 93.5 H, Lymph % (Auto) 2.4 L, [place] % (Auto) 3.4, Eos % (Auto) 0.0, [...] seen from time to time. Reading Location: [facility] Assessment & Plan Assessment/Plan (1) Free fluid [...] HARSHAL Lozano; Dr. Pankaj Lou MD~ Signed [facility] Work Phone: 1(116) 687-625408-30-2025 Discharge summary Author Simba Muller [facility] Note Date/Time December 14, 2024 8: 42pm [facility] Medical Records Department [address] [place] [address] Emergency Department Summary 12/14/24 MR#: [id number] Acct: [id number] Name: BETHANY WILKINS Rep #:[id number] : 1955 69 From: Simba Muller MD PCP: HARSHAL Durant Sta tus:REG [facility] [place] Location: [facility] [id number] HPI History of Present Illness Chief Complaint: [...] state that he followed up with his compensator/oncologist, and they referred him better Dr. Lou [...] does show Fung catheter in place, 20 Faroese, with no drainage in Fung catheter bag. [...] 93.5 H Lymph % (Auto) 2.4 L [place] % (Auto) 3.4 Eos % (Auto) 0.0 [...] seen from time to time. Reading Location: [facility] Management Discussion w/another healthcare provider: Dump Truck Operator (Dr. Lou, allergy) Discharge Plan Dx/Rx/DC Orders Clinical Impression: Acute kidney failure, Bladder cancer, Decreased urine output, Free fluid in pelvis Disposition Disposition: [facility] What to do if you have Problems For any increased pain, shortness of breath, bleeding, nausea or vomiting, chestpain, or any unexpected problems, contact your Primary Care Provider. Call [facility] ([phone]) or report to the closest Emergency Room. Call 911 if necessary. 12/14/242041 <Electronically signed by Simba Muller MD> Cosigner Signature (if applicable): CC: HARSHAL Lozano ~ Signed [facility] Work Phone: 1(987) 556-168908-30-2025 History and physical note [facility] Medical Records Department [address] [place] [address] History & Physical Exam 12/14/242041 MR#: [id number] Acct: [id number] Name: BETHANY WILKINS Rep #:[id number] : 1955 69 From: Pankaj Lou MD PCP: HARSHAL Durant Sta tus:REG [facility] Location: [place] [id number] HPI - General General Date of Service: 12/14/24 Chief Complaint: No urine output HPI Narrative BETHANY WILKINS, is a 69 M who presents to [...] 93.5 H, Lymph % (Auto) 2.4 L, [place] % (Auto) 3.4, Eos % (Auto) 0.0, Baso % (Auto) 0.1, Absolute Neuts (auto)17.3 H, Absolute Lymphs (auto) 0.45 L, Nucleated RBC % 0, Sodium 135, Potassium 4.4,Chloride 101, Carbon Dioxide 19.6 L, Anion Gap 15, BUN 45 H, Creatinine 3.92 H, Estim Creat Clear Calc 15.47 L, Est GFR (MDRD) Non-Af 16 L, BUN/Creatinine Ratio 11.6, Glucose 159 H, Calcium 9.0 Imaging Radiology Impression Abdomen/Pelvis CT 12/14/24 18:10 IMPRESSION: Free air bubbles around the liver. Moderate to prominent amount of free fluid. Perforated viscus issuggested. Perforated peptic ulcer is the most common cause, although other instances of perforated viscus not involving the stomach and duodenum are also seen from time to time. Reading [facility] Assessment & Plan Assessment/Plan (1) Free fluid [...] for diagnostic cystoscopy possible open exploration. 12/14/242043 Cosigner Signature (if applicable): CC: HARSHAL Lozano; Dr. Pankaj Lou MD~ Signed [facility]08-30-2025 Discharge summary [facility] Medical Records Department [address] [place] [address] Emergency Department Summary 12/14/24 MR#: [id number] Acct: [id number] Name: BETHANY WILKINS Rep #:[id number] : 1955 69 From: Simba Muller MD PCP: HARSHAL Durant tus:REG [facility] Location: [place] [address] HPI History of Present Illness Chief Complaint: Complaint Narrative Narrative: 59-year-old male past medical history of bladder carcinoma, presents with his because of suprapubic abdominal pain and decreased drainage from his Fung catheter. He and his relate history that he had surgery by Dr. Lou yesterday. He had previously been diagnosed with bladder carcinomaand necrotictumor removed back in January of last year, approximately 10 months ago. He also had a bladder stone. They state that he followed up with his compensator/oncologist, and they referred him better Dr. Lou [...] p.o. intake since then. No recent fevers orchills, no nausea or vomiting. However, overnight he [...] does show Fung catheter in place, 20 Faroese, with no drainage in Fung catheter bag. [...] place. There may be 250 mL of fluidwithout extravasation. With concern for bladder perforation, and [...] 93.5 H Lymph % (Auto) 2.4 L [place] % (Auto) 3.4 Eos % (Auto) 0.0 [...] prominent amount of free fluid. Perforated viscus issuggested. Perforated peptic ulcer is the most common cause, although other instances of perforated viscus not involving the stomach and duodenum are also seen from time to time. Reading [facility] Management Discussion w/another healthcare provider: Dump Truck Operator (Dr. Lou, allergy) Discharge Plan Dx/Rx/DC Orders Clinical Impression: Acute kidney failure, Bladder cancer, Decreased urine output, Free fluid in pelvis Disposition Disposition: [facility] What to do if you have Problems For any increased pain, shortness of breath, bleeding, nausea or vomiting, chestpain, or any unexpected problems, contact your Primary Care Provider. Call [facility] ([phone]) or report tothe closest Emergency Room. Call 911 if necessary. 12/14/242041 Cosigner Signature (if applicable): CC: HARSHAL Lozano ~ Signed [facility]08-30-2025 [facility] Radiology Diagnostic study note [facility] Imaging Services [address] [place] [address] Abdomen/Pelvis W IV Cont ONLY MR#: [id number] Acct: [id number] Name: BETHANY WILKINS Rep #: [id number] : 1955 M 69 From: Pet er Jaqui GARY PCP: Kyrie Lozano, FAMILY RESOURCE MANAGEMENT SPECIALIST-C Status: REG ER Study:Abdomen/Pelvis W IV Cont ONLY Date of E xam: 12/14/24 Exam# [id number] Ordering Dr: Simba Muller MD ADDENDUM by [...] small amount of extravasated contrast. Reading Location[facility] 12/14/241943 Date cc: FAMILY RESOURCE MANAGEMENT SPECIALIST-C Kyrie Lozano; Dr. Simba Muller MD ~* Signed [...] prominent amount of free fluid. Perforated viscus issuggested. Perforated peptic ulcer is the most common cause, although other instances of perforated viscus not involving the stomach and duodenum are also seen from time to time. Reading Location[facility] CC: HARSHAL Lozano; Dr. Simba Muller MD ~ Electrical Products Sales Engineer: Signed [facility]08-29-2025 Discharge summary Author Pankaj Lou [facility] Note Date/Time December 13, 2024 1: 03pm [facility] Medical Records Department [address] [place] [address] Instructions for Home/Discharge Instructions 12/13/24 1302 MR#: [id number] Acct: [id number] Name: BETHANY WILKINS Rep #:[id number] : 1955 69 From: Pankaj Lou [...] bag and Fung to large bag Drain: Coggon Follow Up Care Test Results: Test results from this visit will be discussed in further detail at your follow- up appointment, if applicable. Discharge Plan Admission Attending Provider: Pankaj Lou Primary Care Provider: Kyrie Lozano NP Instructions Print Language: Citizen Of [place] Discharge Orders/Prescriptions Prescriptions: No Action prochlorperazine maleate 10 mg tablet 10 mg PO Q6H PRN (Reason: nausea and vomiting) Qty: 30 2RF ondansetron 8 mg tablet,disintegrating 8 mg PO Q8H PRN (Reason: nausea and vomiting) Qty: 30 2RF lidocaine-prilocaine 2.5-2.5 % cream 1 applic topical ONCE PRN (Reason: port access) 30 Days Qty: 30 2RF Referrals / Follow Up: Kyrie Lozano NP, FAMILY RESOURCE MANAGEMENT SPECIALIST-C [Primary Care Provider] - Disposition Disposition (needs filled in before D/C Order can be placed): Home, Self Care 12/13/24 1303<Electronically signed by Pankaj Lou MD>Pankaj Lou MD CC: FAMILY RESOURCE MANAGEMENT SPECIALIST-C Kyrie Lozano ~ Signed [facility] Work Phone: [phone] 183-381708-29-2025 Discharge summary Author Pankaj Lou [facility] Note Date/Time December 13, 2024 1: 03pm [facility] Medical Records Department [address] [place] [address] Instructions for Home/Discharge Instructions 12/13/24 1303 MR#: [id number] Acct: [id number] Name: BETHANY WILKINS Rep #:[id number] : 1955 69 From: Pankaj Lou [...] bag and Fung to large bag Drain: Coggon Follow Up Care Please Follow Up With: Pankaj Lou MD When: Call [phone] for an appointment Test Results: Test results from this visit will be discussed in further detail at your follow- up appointment, if applicable. Discharge Plan Admission Attending Provider: Pankaj Lou Primary Care Provider: Kyrie Lozano NP Instructions Print Language: Citizen Of [place] Discharge Orders/Prescriptions Prescriptions: No Action prochlorperazine maleate 10 mg tablet 10 mg PO Q6H PRN (Reason: nausea and vomiting) Qty: 30 2RF ondansetron 8 mg tablet,disintegrating 8 mg PO Q8H PRN (Reason: nausea and vomiting) Qty: 30 2RF lidocaine-prilocaine 2.5-2.5 % cream 1 applic topical ONCE PRN (Reason: port access) 30 Days Qty: 30 2RF Referrals / Follow Up: Kyrie Lozano NP, FAMILY RESOURCE MANAGEMENT SPECIALIST-C [Primary Care Provider] - Disposition Disposition (needs filled in before D/C Order can be placed): Home, Self Care 12/13/24 1303<Electronically signed by Pankaj Lou MD>Pankaj Lou MD CC: FAMILY RESOURCE MANAGEMENT SPECIALIST-C Kyrie Lozano ~ Signed [facility] Work Phone: 1(262) 355-905708-29-2025 Discharge summary [facility] Medical Records Department [address] [place] [address] Instructions for Home/Discharge Instructions 12/13/24 1302 MR#: [id number] Acct: [id number] Name: BETHANY WILKINS Rep #:[id number] : 1955 69 From: Pankaj Lou [...] bag and Fung to large bag Drain: Coggon Follow Up Care Test Results: Test results from this visit will be discussed in further detail at your follow- up appointment, if applicable. Discharge Plan Admission Attending Provider: Pankaj Lou Primary Care Provider: Kyrie Lozano NP Instructions Print Language: Citizen [place] Discharge Orders/Prescriptions Prescriptions: No Action prochlorperazine maleate 10 mg tablet 10 mg PO Q6H PRN (Reason: nausea and vomiting) Qty: 30 2RF ondansetron 8 mg tablet,disintegrating 8 mg PO Q8H PRN (Reason: nausea and vomiting) Qty: 30 2RF lidocaine-prilocaine 2.5-2.5 % cream 1 applic topical ONCE PRN (Reason: port access) 30 Days Qty: 30 2RF Referrals / Follow Up: Kyrie Lozano NP, FAMILY RESOURCE MANAGEMENT SPECIALIST-C [Primary Care Provider] - Disposition Disposition (needs filled in before D/C Order can be placed): Home, Self Care 12/13/24 1303Pankaj Lou MD CC: FAMILY RESOURCE MANAGEMENT SPECIALIST-C Kyrie Lozano ~ Signed [facility]08-29-2025 Discharge summary [facility] Medical Records Department [address] [place] [address] Instructions for Home/Discharge Instructions 12/13/24 1303 MR#: [id number] Acct: [id number] Name: BETHANY WILKINS Rep #:[id number] : 1955 69 From: Pankaj Lou [...] bag and Fung to large bag Drain: Coggon Follow Up Care Please Follow Up With: Pankaj Lou MD When: Call [phone] for an appointment Test Results: Test results from this visit will be discussed in further detail at your follow- up appointment, if applicable. Discharge Plan Admission Attending Provider: Pankaj Lou Primary Care Provider: Kyrie Lozano NP Instructions Print Language: Citizen Of [place] Discharge Orders/Prescriptions Prescriptions: No Action prochlorperazine maleate 10 mg tablet 10 mg PO Q6H PRN (Reason: nausea and vomiting) Qty: 30 2RF ondansetron 8 mg tablet,disintegrating 8 mg PO Q8H PRN (Reason: nausea and vomiting) Qty: 30 2RF lidocaine-prilocaine 2.5-2.5 % cream 1 applic topical ONCE PRN (Reason: port access) 30 Days Qty: 30 2RF Referrals / Follow Up: Kyrie Lozano NP, FAMILY RESOURCE MANAGEMENT SPECIALIST-C [Primary Care Provider] - Disposition Disposition (needs filled in before D/C Order can be placed): Home, Self Care 12/13/24 1303Pankaj Lou MD CC: FAMILY RESOURCE MANAGEMENT SPECIALIST-C Kyrie Lozano ~ Signed [facility]08-29-2025 Procedure note [facility] Medical Records Department [address] [place] [address] Operative Report 12/13/24 1259 MR#: [id number] Acct: [id number] Name: BETHANY WILKINS Rep #:[id number] : 1955 69 From: Pankaj Lou MD PCP: HARSHAL Durant [facility] tus:[facility] Location: [place] [address] Operative Report (Standard) Operative Information Date of Procedure: 12/13/24 Pre-Operative Diagnosis: Invasive bladder cancer Post-Operative Diagnosis: Resection of bladder mass Surgery/Procedure Performed: Cystoscopy and laser of a large bladder stone greater than 3 cm in size, transurethral resection of a very large bladder mass greater than 5 cm in size credit operations specialist: No Type of Anesthesia: General RN Documented Start/Stop Times: Operation Date: 12/13/24 12:25 Case Time Into Pre-Op 12/13/24 10:16 Out of Pre-Op 12/13/24 12:15 Anesthesia Start 12/13/24 12:20 Into Room 12/13/24 12:20 Procedure Start 12/13/24 12:36 Procedure End 12/13/24 12:59 Procedure Start Time: 12:36 Procedure Stop Time: 12:59 Select all DRAINS/GRAFTS/IMPLANTS that apply: Drains Drain details: 20 Faroese Fung Estimated Blood Loss: Minimal Specimen collected: [...] HARSHAL Lozano; Dr. Pankaj Lou MD~ Signed [facility]08-29-2025 Consult note Author Jayson Mckinney [facility] Note Date/Time December 13, 2024 10 :35am [facility] Medical Records Department [address] [place] [address] Pre-Anesthesia Evaluation 12/13/24 1035 MR#: [id number] Acct: [id number] Name: BETHANY WILKINS Rep #:[id number] : 1955 69 From: Jayson Mckinney MD PCP: HARSHAL Durant Sta tus:REG [facility] Y Race: C Location: [place] [address] ASA Classification* ASA Classification ASA Classification: 2 [...] Procedure(s): Cysto,Litholapaxy,Laser 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 - jewel 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: 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 - jewel stringer Hx Hospitalization Yes: 01/2024 POSTOP BLADDER 12/02/24 [...] take am of surgery PONV PONV - jewel stringer: PONV - jewel stringer Female No 12/02/24 14:16 HX of Motion [...] 11/07/24 08:26 Respiratory Assessment Respiratory Assessment - jewel stringer: Respiratory Tract Infection Hx - jewel stringer Hx Respiratory Tract Infection No 12/02/24 14:16 STOP Sleep Apnea STOP Sleep Apnea - jewel stringer: STOP Sleep Apnea - jewel stringer Hx Hypertension No 12/02/24 14:16 Hx Sleep [...] Tobacco Use History Tobacco Use History - jewel stringer: Tobacco Use History - jewel stringer Tobacco Use Smoking Status Never smoker 12/02/24 14:16 Hx Tobacco Use No 12/02/24 14:16 Years Smoking Packs Smoked per Day Smoking Cessation Date was within the last 15 years Hx Smoking Cessation Date Hx Smoking Cessation Counseling Hematologic Medial History Hematologic Hx - jewel 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: 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 Hx of Blood Transfusion No 12/02/24 14:16 [...] confused, unrespo /Reproduction History /Reproductive History - jewel stringer: /Reproductive Hx- jewel stringer Hx Now No 12/02/24 14:16 Gestational Age [...] MD Cosigner Signature: Date CC: ~ Signed [facility] Work Phone: 1([phone]) 117-492108-29-2025 Consult note [facility] Medical Records Department [address] [place] [address] Pre-Anesthesia Evaluation 12/13/24 1035 MR#: [id number] Acct: [id number] Name: BETHANY WILKINS Rep #:[id number] : 1955 69 From: Jayson Mckinney MD PCP: Kyrie Lozano, FAMILY RESOURCE MANAGEMENT SPECIALISTMunaC Sta tus:REG [facility] Y Race: C Location: [place] [address] ASA Classification* ASA Classification ASA Classification: 2 [...] Procedure(s): Cysto,Litholapaxy,Laser 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 - jewel stringer: 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 - jewel stringer Hx Hospitalization Yes: 01/2024 POSTOP BLADDER 12/02/24 [...] take am of surgery PONV PONV - jewel stringer: PONV - jewel stringer Female No 12/02/24 14:16 HX of Motion [...] 11/07/24 08:26 Respiratory Assessment Respiratory Assessment - jewel stringer: Respiratory Tract Infection Hx - jewel stringer Hx Respiratory Tract Infection No 12/02/24 14:16 STOP Sleep Apnea STOP Sleep Apnea - jewel stringer: STOP Sleep Apnea - jewel stringer Hx Hypertension No 12/02/24 14:16 Hx Sleep [...] Tobacco Use History Tobacco Use History - jewel stringer: Tobacco Use History - jewel stringer Tobacco Use Smoking Status Never smoker 12/02/24 14:16 Hx Tobacco Use No 12/02/24 14:16 Years Smoking Packs Smoked per Day Smoking Cessation Date was within the last 15 years Hx Smoking Cessation Date Hx Smoking Cessation Counseling Hematologic Medial History Hematologic Hx - jewel 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: 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 Hx of Blood Transfusion No 12/02/24 14:16 [...] confused, unrespo /Reproduction History /Reproductive History - jewel stringer: /Reproductive Hx- jewel stringer Hx Now No 12/02/24 14:16 Gestational Age [...] 1035 MD> Date _ Jayson Mckinney MD Cosigner Signature: Date CC: ~ Signed [facility]07-24-2025 Evaluation note* Diagnosis Onset Date Resolution Status Admit Date Bladder cancer chronic November 07, 2024 7:51am Bladder cancer chronic November 07, 2024 7:52am [facility] Work Phone: 1(298) 688-587207-24-2025 Evaluation note* Diagnosis Onset Date Resolution Status Admit Date Bladder cancer chronic November 07, 2024 7:51am Bladder cancer chronic November 07, 2024 7:52am Acute kidney failure acute Augu st 2024 8:38pm Cancer acute December 14, 025 8:38pm Decreased urine output acute Au carlos 2024 8:38pm Free fluid in pelvis acute Augu 2024 8:38pm Bladder cancer chronic November 8:38pm [facility] Work Phone: 1(318) 663-993307-24-2025 Evaluation note* Diagnosis Onset Date Resolution Status Admit Date Bladder cancer chronic November 07, 2024 7:51am Bladder cancer chronic November 07, 2024 7:52am Acute kidney failure acute Augu 2024 11:11pm Cancer acute December 14, 025 11:11pm Decreased urine output acute Au carlos 2024 11:11pm Free fluid in pelvis acute Augu 2024 11:11pm Bladder cancer chronic November 11:11pm [facility] Work Phone: 1(442) 245-448807-24-2025 [facility] [address] [place] [address] OFFICE VISIT Date of Service: 11/07/24823 MR#: [id number] Acct: [id number] Name: BETHANY WILKINS Rep #: [id number] : 1955 From: Donny Martinez MD Age/Sex: 69/M [place] [facility] [place]: Signed HPI Subjective Date of Service [...] MD Cosigner Signature: Date (if applicable) CC: HARSHAL Lozano ~ [facility]07-24-2025 Progress note Author Donny Martinez [facility] Note Date/Time November 07, 2024 9:27 am [facility] [address] [address] OFFICE VISIT Date of Service: 11/07/24823 MR#: [id number] Acct: [id number] Name: BETHANY WILKINS Rep #: [id number] : 1955 From: Donny Martinez MD Age/Sex: 69/M [place] [facility] [place]: Signed HPI Subjective Date of Service [...] MD Cosigner Signature: Date (if applicable) CC: FAMILY RESOURCE MANAGEMENT SPECIALIST-C Kyrie Lozano ~ [facility] Work Phone: 1(592) 254-882007-16-2025 Radiology Diagnostic study note [facility] Imaging Services [address] [place] [address] CT Chest, Abd, Pel w/Contrast MR#: [id number] Acct: [id number] Name: BETHANY WILKINS Rep #: [id number] : 1955 M 69 From: Erlin Wilkerson MD PCP: HARSHAL Durant Status: REG CLI Study:CT Chest, Abd, Pel w/Contrast Date of E xam: 10/30/24 Exam# [id number] Ordering Dr: Mohsen Martinez MD PROCEDURE: CT [...] of the examination is unchanged. Reading Location: [place] [address] CC: FAMILY RESOURCE MANAGEMENT SPECIALIST-C Kyrie Lozano; Dr. Donny Martinez MD ~ Electrical Products Sales Engineer: Signed [facility]04-09-2025 Radiology Diagnostic study note [facility] Imaging Services [address] [place] [address] Chest PA and Lateral MR#: [id number] Acct: [id number] Name: BETHANY WILKINS Rep #: [id number] : 1955 M 69 From: Meseret oJhnson MD PCP: HARSHAL Durant Status: REG ER Study:Chest PA and Lateral Date of Exam: 07/24/24 Exam# [id number] Ordering Dr: Jayson Bartlett DO PROCEDURE: CHEST [...] Lateral IMPRESSION: NO ACUTE FINDINGS. [facility] CC: FAMILY RESOURCE MANAGEMENT SPECIALISTChris Lozano; Dr. Jayson Bartlett, DO ~ Electrical Products Sales Engineer: Kecia [facility]03-27-2025 Evaluation note* Diagnosis Onset Date Resolution Status Admit Date Bladder cancer chronic June 8:00am Mediastinal lymphadenopathy acute July 15, 2024 7:39am Bladder cancer chronic June 7:39am Bladder cancer chronic July 16, 2024 7:31am Mediastinal lymphadenopathy acute August 12, 2024 9:20am Bladder cancer chronic July 9:20am Bladder cancer chronic July 9:20am [facility] Work Phone: 1(300) 133-454503-27-2025 Evaluation note* Diagnosis Onset Date Resolution Status [...] Bladder cancer chronic November 07, 2024 7:52am [facility] Work Phone: 1([phone]) 204-534103-24-2025 Evaluation note* Diagnosis Onset Date Resolution Status Admit Date Mediastinal lymphadenopathy acute July 08, 2024 7:40am Bladder cancer chronic June 7:40am Bladder cancer chronic June 8:00am Mediastinal lymphadenopathy acute July 15, 2024 7:39am Bladder cancer chronic June 7:39am Bladder cancer chronic July 16, 2024 7:31am Mediastinal lymphadenopathy acute August 12, 2024 9:20am Bladder cancer chronic July 9:20am Bladder cancer chronic July 9:20am [facility] Work Phone: 1(184) 963-928102-28-2025 [facility]02-25-2025 History of Present illness Narrative* Alvaro Davey, Research Coordinator - 06/11/2024 11:40 AM ESTSummary: Research Patient was approached about his interest in IRB [id number], patient declined. documented in [facility]25 NoteHNO ID: [id number] Author: ALVARO DAVEY Research Coordinator Service: ? Author Type: Research Type: Progress Notes Filed: 06/12/2024 08:33 Note Text: Summary: Research Patient was approached about his interest in IRB [id number], patient declined. [facility]02-25-2025 NoteHNO ID: [id number] Author: ROEL HEATH MD Service: ? Author Type: Physician Type: Progress Notes Filed: 06/12/2024 10:21 Note Text: ##New Invasive Bladder Cancer Patient## Chief Complaint: Invasive Bladder Cancer History of Present Illness: Bethany Wilkins is a very pleasant 69 year old [...] PET scan highlighted areas, but biopsy by manager van showed no cancer. - Conflicting opinions from oncologists regarding lung findings. - Recent blood test ([employer]) showed positive for cancer DNA; oncologist dismissed the test as "worthless." - No known kidney issues; initial ultrasound showed mild swelling in one kidney due to tumor obstruction. - Denies smoking history. 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 - Describes himself as very active, with [...] 130/78, pulse 69, height 165.1 cm (5' 5"), weight 65.7 kg (144 lb 13.5 oz). General Appearance Adult: Alert, no acute distress, oriented Lungs/Repiratory: no respiratory distress, or pursed lip breathing Psych: affect and mood normal Abdomen: Estimated body mass index is 24.1 kg/m? as calculated from the following: Height as of this encounter: 165.1 cm (5' 5"). Weight as of this encounter: 65.7 kg [...] work. We also dis (more content not included)...[facility]02-25-2025 History of Present illness Narrative* Roel Heath MD - 06/11/2024 10:34 AM EST Images from the original note were not included. ##New Invasive Bladder Cancer Patient## Chief Complaint: Invasive Bladder Cancer History of Present Illness: Bethany Wilkins is a very pleasant 69 year old [...] PET scan highlighted areas, but biopsy by manager van showed no cancer. - Conflicting opinions from oncologists regarding lung findings. - Recent blood test ([employer]) showed positive for cancer DNA; oncologist dismissed the test as "worthless." - No known kidney issues; initial ultrasound showed mild swelling in one kidney due to tumor obstruction. - Denies smoking history. 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 - Describes himself as very active, with [...] 130/78, pulse 69, height 165.1 cm (5' 5"), weight 65.7 kg (144 lb 13.5 oz). General Appearance Adult: Alert, no acute distress, oriented Lungs/Repiratory: no respiratory distress, or pursed lip breathing Psych: affect and mood normal Abdomen: Estimated body mass index is 24.1 kg/m as calculated from the following: Height as of this encounter: 165.1 cm (5' 5"). Weight as of this encounter: 65.7 kg [...] types of urinary diversion including ileal conduit, [place] Pouch andileal neobladder. The various pros and [...] had previously undergone the procedure. Mary Tejeda APRN.ORDER PROCESSING MANAGER The patient is seen and examined by Dr. Roel Heath and the following reflects his/her service. Scribed by Kyrie Blancas I agree with the Chief Complaint, ROS, and Past Histories independently gathered by the clinical application support including scribe and or medical student and [...] and various atmospheric conditions as an electrician helper powerhouse. Discussed the potential impact of occupational exposures on bladder cancer risk. Roel Heath MD, MS [facility] Pending Sale To [facility] documented in this encounterLake[facility]02-25-2025 NotePatient Outreach (UROLMN) BETHANY WILKINS ([id number]) 1955 [facility] Date Time Provider Department 06/11/24 ROEL HEATHAutumn During your visit today, we recorded the following information about you: Allergies As of Date: 06/11/2024 (No Known Allergies) Date Reviewed: 06/11/2024 Reviewed by: Elise Wilkins OCCA - Fully Assessed Visit Diagnosis:Screening for genitourinary condition [Z13.89] Order(s):UA DIP, URINE (POC) [[id number]] Order #: [id number] FUTURE Prescriptions as of 06/14/2024 - acetaminophen (TYLENOL) 325 mg cap Take by mouth. Problem List As Of Date: 06/11/2024 (None) Encounter Status:Closed by DiBcomJASON on 06/14/24[facility] 05-08-2024 [facility]12-19-2024 Evaluation note* Diagnosis Onset Date Resolution Status [...] Bladder cancer chronic July 16, 2024 7:31am [facility] Work Phone: 1(190) 806-775811-27-2024 [facility]09-23-2024 Note ORIGINAL EXAMINATION: LIMITED RETROPERITONEAL ULTRASOUND01/08/2024 7:28 [...] Date: 01/08/2024 12:08:29 PM Ordering Provider: KYRIE Mcintyre [facility]09-11-2024 Note. MICRO - Microbiology PROCEDURE: Urine Culture [*1] SOURCE: Urine, Clean Catch BODY SITE: COLLECTED DATE/TIME: 12/26/2023 17:08 EDT RECEIVED DATE/TIME: 12/26/2023 18:59 EDT START DATE/TIME: 12/26/2023 18:59 EDT FREE TEXT SOURCE: FINAL REPORTS Final Report [] Verified Date/Time/Personnel: 12/27/2023 14:36 EDT <10,000 cfu/ml. No Significant growth. Sensitivity not indicated. Performing Locations *1: This test was performed at: [facility], [address] [place] [address], [facility] , [facility]01-15-2024 Hospital Discharge instructions Patient Education 05/01/2023 17:34:51 [...] alternate ice and heat. You may use rdbp-jwl-xsgghdj pain medicine to control pain, unless another [...] in one or both arms or legs [id number] [employer]. [address] [place] [address]. All rights reserved. This information is not intended as a substitute for professional medical care. Always follow yourhealthcare professional's instructions. Follow Up Care 05/01/2023 16:06:20 With:MITCHELL MEDRANO Address: [facility] [address]- When:2-4 days Comments:[address] [address] With:KYRIE LOZANO APRN - ORDER PROCESSING MANAGER Address: [address] [facility] [place], [place] [id number]- When:2-4 days [facility] 01-15-2024 Note Discharge Instructions Thank you for allowing [facility] to assist you with your healthcare needs. The following is importantdischarge information regarding your hospital visit. Diagnosis from Today's Visit Neck pain Shoulder pain-swelling What to Do Next Instructions from Your Care Team No qualifying data available. Post Acute Orders No qualifying data available. You Need to Schedule the Following Appointments Follow Up with MITCHELL MEDRANO When Within 2-4 days Why: [facility] [address] [place], [place] [id number] Where: [address] [place] [address]- Follow Up with KYRIE LOZANO APRN, CNP When Within 2-4 days Where: [address] [facility] [place] [address]- Allergies NKA Medications Please ask your primary [...] alternate ice and heat. You may use wgrv-nnk-savjivv pain medicine to control pain, unless another [...] in one or both arms or legs [id number] [employer]. [address] [place] [address], [place] [address]. All rights reserved. This information is not intended as a substitute for professional medical care. Always follow yourhealthcare professional's instructions. Additional Information VACCINATE! IT SAVES LIVES! Members of the community who have not yet received the COVID-19 vaccine and would like to receive it can visit one of [facility] vaccine clinics. There are many vaccine clinic locations within the [facility]. For locations and available times, please visit [email or web address].[place].gov/. It is important to note that some COVID mobile vaccine clinics are held outdoors and may be canceled in rainy or stormy conditions. To learn more about pediatric vaccinations (ages 5-11), we invite you to visit the [facility] webpage. https://www.[email or web address].org/pages/8177-Ctnos-Hfhdammtdzu-Iwctjgwpfe-Yvgzt-Zer stions.htmlTo learn more about the COVID-19 vaccine, we invite you to visit the CDC website for a list of frequently asked questions. https://www.cdc.gov/coronavirus/2019-ncov/vaccines/faq.html [facility] Patient Portal Access Instructions: Stay connected with your healthcare team and access your personal medical information anytime with the [facility] [employer] Patient Portal. If you would like a full copy of your medical records please contact the [facility] Medical Records Department Monday through Monday between 8a.m. and 4:30p.m. Please follow the directions below to access the portal: 1.Access the email account you provided upon registration to the hospital.2.Look for an invitation email from [facility].3.Open the email and access the invitation link: Accept Invitation to [facility] [employer]4.Fill in the required butterfield to create your account. Sign into www.[employer] with your username and password that you [...] you will allow to register on the [facility] Patient Portal for access to your information. You can also access the [employer] Patient Portal on the [facility] aspen. Simply click on "Health Records" under "[employer]St[employer]" and then click on the [employer] logo. HOW TO SAFELY DISPOSE OF PRESCRIPTION [...] Call your local pharmacy or go to http://bit.Semmle/6H1Ad4r to find one close to you.3.Make use of household items: Use cat litter or old coffee grounds to dispose medications if other options arenot available. Mix your drugs with these household products, seal them in an airtight container andthrow it into the garbage. Call [facility]: [phone] to be sure your drugs can be [...] reviewed and explained to me and I,BETHANY WILKINS understand my current condition and have read and understand these discharge instructions. I have received awritten copy of the plan/instructions. If I have questions, I am aware that I should contact my doctor. Patient/Chopper Operator Signature: Date/Time: Relationship to Patient: Witness Name/Signature: Date/Time: [facility]01-15-2024 Note ORIGINAL EXAMINATION: FIVE XRAY VIEWS OF [...] Sign Date: 05/01/2023 5:26:40 PM [facility] No data available for this section [facility] Evaluation + Plan note Future Appointments Appointment Date:01/22/2024 03:20:00 PM Scheduled Provider:KYRIE LOZANO APRN, CNP Location:[facility] Appointment Type:PC OV Follow Up Future Scheduled Tests Laboratory* Pathology Non-Political Advisor Request 01/09/24 Radiology* US Bladder 12/26/23 * US Renal 12/26/23 [facility] Evaluation + Plan note Future Appointments Appointment Date:01/22/2024 03:20:00 PM Scheduled Provider:KYRIE LOZANO APRN, CNP Location:[facility] Appointment Type:PC OV Follow Up Future Scheduled Tests Laboratory* Pathology Non-Political Advisor Request 01/09/24 [facility] Evaluation note* Diagnosis Malignant neoplasm of overlapping sites of bladder (HCC)- Primary Malignant neoplasm of other specified sites of bladder documented in this encounter [facility] Diagnosis Malignant neoplasm of overlapping sites of bladder (HCC)- Primary Malignant neoplasm of other specified sites of bladder History of bladder cancer Personal history of malignant neoplasm of bladder Occupational exposure to other risk factors documented in this encounter [facility]* Diagnosis Screening for genitourinary condition Screening for other and unspecified genitourinary condition documented in this encounter [facility] CenterHistory and physical note Author Pankaj Lou [facility] Note Date/Time December 14, 2024 8: 44pm [facility] Medical Records Department [address] [place] [address] History & Physical Exam 12/14/242041 MR#: [id number] Acct: [id number] Name: BETHANY WILKINS Rep #:[id number] : 1955 69 From: Pankaj Lou MD PCP: HARSHAL Durant tus:[facility] Location: [facility] [id number] HPI - General General Date of Service: 12/14/24 Chief Complaint: No urine output HPI Narrative BETHANY WILKINS, is a 69 M who presents to [...] 93.5 H, Lymph % (Auto) 2.4 L, [place] % (Auto) 3.4, Eos % (Auto) 0.0, [...] seen from time to time. Reading Location: [facility] Assessment & Plan Assessment/Plan (1) Free fluid [...] HARSHAL Lozano; Dr. Pankaj Lou MD~ Signed [facility] Work Phone: Hospital Discharge instructions No data available for this section [facility] Hospital Discharge instructionsAdditional Instructions [facility]: [facility] Progress note No data available for this section [facility] Reason for referral (narrative)No reason for referral information availableAdena [facility] Work Phone: Summary Purpose Family History Relationship Condition Age at Onset Recorded Date/T natalio sister Malignant neoplasm Unknown mother Malignant neoplasm Unknown No Family History Records Found Advance Directives No Advanced Directives Records Found Advance Directive Response Recorded Date/ Time Living Will No June 12 4:10pm Do you have a Healthcare Power of Concrete Pump Operator Helper? No June 12, 2024 4:10pm Advance Directives on File No July 15, 2024 9:32am Living Will No July 15, 2024 9:32am Do you have a Healthcare Power of Concrete Pump Operator Helper? No July 15, 2024 9:32am Advance Directives No July 15 9:32am Living Will No May 07 10:07am Do you have a Healthcare Power of Concrete Pump Operator Helper? No May 07, 2024 10:07am Living Will No July 24, 2024 5:22pm Do you have a Healthcare Power of Concrete Pump Operator Helper? No July 24, 2024 5:22pm Advance Directive Response Recorded Date/ Time Advance Directives on File No July 15, 2024 9:32am Living Will No July 15, 2024 9:32am Do you have a Healthcare Power of Concrete Pump Operator Helper? No July 15, 2024 9:32am Advance Directives No July 15 9:32am Living Will No July 24, 2024 5:22pm Do you have a Healthcare Power of Concrete Pump Operator Helper? No July 24, 2024 5:22pm Advance Directive Response Recorded Date/ Time Advance Directives on File No July 15, 2024 9:32am Living Will No July 15, 2024 9:32am Do you have a Healthcare Power of Concrete Pump Operator Helper? No July 15, 2024 9:32am Advance Directives No July 15 9:32am Do you have a Healthcare Power of Concrete Pump Operator Helper? No December 02, 2024 2:16pm Advance Directive Response Recorded Date/ Time Advance Directives on File No July 15, 2024 9:32am Living Will No July 15, 2024 9:32am Do you have a Healthcare Power of Concrete Pump Operator Helper? No July 15, 2024 9:32am Advance Directives No July 15 9:32am Do you have a Healthcare Power of Concrete Pump Operator Helper? No December 02, 2024 2:16pm Do you have a Healthcare Power of Concrete Pump Operator Helper? No December 14, 2024 4:57pm Advance Directive Response Recorded Date/ Time Advance Directives on File No July 15, 2024 9:32am Living Will No July 15, 2024 9:32am Do you have a Healthcare Power of Concrete Pump Operator Helper? No July 15, 2024 9:32am Advance Directives No July 15 025 9:32am Do you have a Healthcare Power of Concrete Pump Operator Helper? No December 02, 2024 2:16pm Do you have a Healthcare Power of Concrete Pump Operator Helper? No December 15, 2024 12:16am Chief Complaint and Reason for Visit Chief [...] Bladder cancer December 14, 2024 8: 38pm Chief Complaint Admit Date BLADDER CA *IV ONLY* October 30, 2024 7:5 8am 3 MONTH F/U BLADDER November 07, 2024 7:51 am 12[facility] PRIOR REVIEW CT November 07 7:52am xrt November 07, 2024 12:0 0pm Cysto,Litholapaxy,Laser December 13 10:13am PERFORATED BLADDER, BLADDER CANCER Augus 2024 11:11pm Reason for Visit Admit Date Bladder cancer November 07, 2024 7:51 am Bladder cancer November 07, 2024 7:52 am Acute kidney failure December 14, 2024 1 1:11pm Cancer December 14, 2024 11 :11pm Decreased urine output December 14, 2024 11:11pm Free fluid in pelvis December 14, 2024 1 1:11pm Bladder cancer December 14, 2024 11 :11pm Additional Source Comments Patient Care team informatio n (unrecognized section and content) Team Status: Active Member Role Status Dates Kyrie Lozano FAMILY RESOURCE MANAGEMENT SPECIALIST, FAMILY RESOURCE MANAGEMENT SPECIALIST-C Primary Care Provider Active Team Status: Inactive Member Role Status Dates Kyrie Lozano FAMILY RESOURCE MANAGEMENT SPECIALIST, FAMILY RESOURCE MANAGEMENT SPECIALIST-C Primary Care Provider Active Start: April 042023 End: April 04, 2024 Dr. Donny Martinez MD Attending Provider Active S tart: April 04, 2024 End: April 04, 2024 Dr. Pankaj Lou MD Referring Provider Active Start: April 04, 2024 End: April 04, 2024 Team Status: Inactive Member Role Status Dates Kyrie Lozano FAMILY RESOURCE MANAGEMENT SPECIALIST, FAMILY RESOURCE MANAGEMENT SPECIALIST-C Primary Care Provider Active Start: April 112023 End: April 11, 2024 Dr. Donny Martinez MD Attending Provider Active S tart: April 11, 2024 End: April 11, 2024 Dr. Donny Martinez MD Referring Provider Active S tart: April 11, 2024 End: April 11, 2024 Team Status: Inactive Member Role Status Dates Kyrie Lozano FAMILY RESOURCE MANAGEMENT SPECIALIST, FAMILY RESOURCE MANAGEMENT SPECIALIST-C Primary Care Provider Active Start: April 162023 End: 2024 Kyrie Lozano FAMILY RESOURCE MANAGEMENT SPECIALIST, FAMILY RESOURCE MANAGEMENT SPECIALIST-C Referring Provider Active Start: March End: 2024 Dr. Donny Martinez MD Attending Provider Active S tart: 2024 End: 2024 Team Status: Inactive Member Role Status Dates Kyrie Lozano FAMILY RESOURCE MANAGEMENT SPECIALIST, FAMILY RESOURCE MANAGEMENT SPECIALIST-C Primary Care Provider Active Start: April End: April 25, 2024 Kyrie Lozano FAMILY RESOURCE MANAGEMENT SPECIALIST, FAMILY RESOURCE MANAGEMENT SPECIALIST-C Referring Provider Active Start: April 25, 2024 End: April 25, 2024 Dr. Donny Martinez MD Attending Provider Active S tart: April 25, 2024 End: April 25, 2024 Team Status: Inactive Member Role Status Dates Kyrie Lozano FAMILY RESOURCE MANAGEMENT SPECIALIST, FAMILY RESOURCE MANAGEMENT SPECIALIST-C Primary Care Provider Active Start: April End: April 30, 2024 Dr. Young Samuels DO Attending Provider Active S tart: April 30, 2024 End: April 30, 2024 Dr. Donny Martinez MD Referring Provider Active S tart: April 30, 2024 End: April 30, 2024 Team Status: Inactive Member Role Status Dates Kyrie Lozano FAMILY RESOURCE MANAGEMENT SPECIALIST, FAMILY RESOURCE MANAGEMENT SPECIALIST-C Primary Care Provider Active Start: April End: April 30, 2024 Dr. Young Samuels , Attending Provider Active S tart: April 30, 2024 End: April 30, 2024 Dr. Young Samuels , Referring Provider Active S tart: April 30, 2024 End: April 30, 2024 Team Status: Active Member Role Status Dates Kyrie Lozano FAMILY RESOURCE MANAGEMENT SPECIALIST, FAMILY RESOURCE MANAGEMENT SPECIALIST-C Primary Care Provider Active Start: April Dr. Young Samuels , Attending Provider Active S tart: May 08, 2024 Dr. Young Samuels , Referring Provider Active S tart: May 08, 2024 Dr. Young Samuels , Other Provider Active Start : May 08, 2024 Team Status: Inactive Member Role Status Dates Kyrie Lozano FAMILY RESOURCE MANAGEMENT SPECIALIST, FAMILY RESOURCE MANAGEMENT SPECIALIST-C Primary Care Provider Active Start: April End: May 10, 2024 Dr. Young Samuels , Attending Provider Active S tart: May 10, 2024 End: May 10, 2024 Dr. Young Samuels , Referring Provider Active S tart: May 10, 2024 End: May 10, 2024 Team Status: Active Member Role Status Dates Kyrie Lozano FAMILY RESOURCE MANAGEMENT SPECIALIST, FAMILY RESOURCE MANAGEMENT SPECIALIST-C Primary Care Provider Active Start: April Dr. Young Samuels DO Attending Provider Active S tart: May 10, 2024 Dr. Young Samuels DO Referring Provider Active S tart: May 10, 2024 Team Status: Inactive Member Role Status Dates Kyrie Lozano FAMILY RESOURCE MANAGEMENT SPECIALIST, FAMILY RESOURCE MANAGEMENT SPECIALIST-C Primary Care Provider Active Start: May End: May 21, 2024 Kyrie Lozano FAMILY RESOURCE MANAGEMENT SPECIALIST, FAMILY RESOURCE MANAGEMENT SPECIALIST-C Referring Provider Active Start: May 21, 2024 End: May 21, 2024 Dr. Jules Fuentes MD Attending Provider Active Start: May 21, 2024 End: May 21, 2024 Team Status: Inactive Member Role Status Dates Kyrie Lozano FAMILY RESOURCE MANAGEMENT SPECIALIST, FAMILY RESOURCE MANAGEMENT SPECIALIST-C Primary Care Provider Active Start: May End: May 24, 2024 Kyrie Lozano FAMILY RESOURCE MANAGEMENT SPECIALIST, FAMILY RESOURCE MANAGEMENT SPECIALIST-C Referring Provider Active Start: May 24, 2024 End: May 24, 2024 Dr. Mahad Villatoro DO Attending Provider Active Start: May 24, 2024 End: May 24, 2024 Team Status: Inactive Member Role Status Dates Kyrie oLzano FAMILY RESOURCE MANAGEMENT SPECIALIST, FAMILY RESOURCE MANAGEMENT SPECIALIST-C Primary Care Provider Active Start: June 102024 End: June 10, 2024 Kyrie Lozano FAMILY RESOURCE MANAGEMENT SPECIALIST, FAMILY RESOURCE MANAGEMENT SPECIALIST-C Referring Provider Active Start: May End: June 10, 2024 Dr. Buddy Mccallum MD Attending Provider Active Start: June 10, 2024 End: June 10, 2024 Team Status: Inactive Member Role Status Dates Kyrie Lozano FAMILY RESOURCE MANAGEMENT SPECIALIST, FAMILY RESOURCE MANAGEMENT SPECIALIST-C Primary Care Provider Active Start: June 142024 End: June 14, 2024 Dr. Buddy Mccallum MD Attending Provider Active Start: June 14, 2024 End: June 14, 2024 Dr. Buddy Mccallum MD Referring Provider Active Start: June 14, 2024 End: June 14, 2024 Team Status: Active Member Role Status Dates Kyrie Lozano FAMILY RESOURCE MANAGEMENT SPECIALIST, FAMILY RESOURCE MANAGEMENT SPECIALIST-C Primary Care Provider Active Start: June 142024 Dr. Buddy Mccallum MD Attending Provider Active Start: June 14, 2024 Dr. Buddy Mccallum MD Referring Provider Active Start: June 14, 2024 Dr. Buddy Mccallum MD Other Provider Active Start: June 14, 2024 Team Status: Active Member Role Status Dates Kyrie Lozano FAMILY RESOURCE MANAGEMENT SPECIALIST, FAMILY RESOURCE MANAGEMENT SPECIALIST-C Primary Care Provider Active Start: June 17, 2024 Dr. Mahad Villatoro DO Attending Provider Active Start: June 17, 2024 Dr. Mahad Villatoro DO Referring Provider Active Start: June 17, 2024 Team Status: Inactive Member Role Status Dates Kyrie Lozano FAMILY RESOURCE MANAGEMENT SPECIALIST, FAMILY RESOURCE MANAGEMENT SPECIALIST-C Primary Care Provider Active Start: June 19, 2024 End: June 19, 2024 Kyrie Lozano FAMILY RESOURCE MANAGEMENT SPECIALIST, FAMILY RESOURCE MANAGEMENT SPECIALIST-C Referring Provider Ac tive Start: June 19, 2024 End: June 19, 2024 Shantel Norris FAMILY RESOURCE MANAGEMENT SPECIALIST, FAMILY RESOURCE MANAGEMENT SPECIALIST-C Attending Provider Active Start: June 19, 2024 End: June 19, 2024 Team Status: Active Member Role Status Dates Kyrie Lozaon FAMILY RESOURCE MANAGEMENT SPECIALIST, FAMILY RESOURCE MANAGEMENT SPECIALIST-C Primary Care Provider Active Start: June 20, 2024 Dr. Mahad Villatoro DO Attending Provider Active Start: June 20, 2024 Dr. Mahad Villatoro DO Referring Provider Active Start: June 20, 2024 Team Status: Active Member Role Status Dates Kyrie Lozano FAMILY RESOURCE MANAGEMENT SPECIALIST, FAMILY RESOURCE MANAGEMENT SPECIALIST-C Primary Care Provider Active Start: June 21, 2024 Dr. Mahad Villatoro DO Attending Provider Active Start: June 21, 2024 Dr. Mahad Villatoro DO Referring Provider Active Start: June 21, 2024 Team Status: Inactive Member Role Status Dates Kyrie Lozano FAMILY RESOURCE MANAGEMENT SPECIALIST, FAMILY RESOURCE MANAGEMENT SPECIALIST-C Primary Care Provider Active Start: June 24, 2024 End: June 24, 2024 Kyrie Lozano FAMILY RESOURCE MANAGEMENT SPECIALIST, FAMILY RESOURCE MANAGEMENT SPECIALIST-C Referring Provider Ac tive Start: June 24, 2024 End: June 24, 2024 Dr. Donny Martinez MD Attending Provider Active S tart: June 24, 2024 End: June 24, 2024 Team Status: Active Member Role Status Dates Kyrie Lozano FAMILY RESOURCE MANAGEMENT SPECIALIST, FAMILY RESOURCE MANAGEMENT SPECIALIST-C Primary Care Provider Active Start: June 24, 2024 Dr. Donny Ruiz MD Attending Provider Active Start: June 24, 2024 Dr. Donny Ruiz MD Referring Provider Active Start: June 24, 2024 Team Status: Inactive Member Role Status Dates Kyrie Lozano FAMILY RESOURCE MANAGEMENT SPECIALIST, FAMILY RESOURCE MANAGEMENT SPECIALIST-C Primary Care Provider Active Start: June 26, 2024 End: June 26, 2024 Kyrie Lozano FAMILY RESOURCE MANAGEMENT SPECIALIST, FAMILY RESOURCE MANAGEMENT SPECIALIST-C Referring Provider Ac tive Start: June 26, 2024 End: June 26, 2024 Dr. Mahad Villatoro DO Attending Provider Active Start: June 26, 2024 End: June 26, 2024 Team Status: Inactive Member Role Status Dates Kyrie Lozano FAMILY RESOURCE MANAGEMENT SPECIALIST, FAMILY RESOURCE MANAGEMENT SPECIALIST-C Primary Care Provider Active Start: July 01, 2024 End: July 01, 2024 Kyrie Lozano FAMILY RESOURCE MANAGEMENT SPECIALIST, FAMILY RESOURCE MANAGEMENT SPECIALIST-C Referring Provider Ac tive Start: July 01, 2024 End: July 01, 2024 Dr. Donny Martinez MD Attending Provider Active S tart: July 01, 2024 End: July 01, 2024 Team Status: Inactive Member Role Status Dates Kyrie Lozano FAMILY RESOURCE MANAGEMENT SPECIALIST, FAMILY RESOURCE MANAGEMENT SPECIALIST-C Primary Care Provider Active Start: July 04, 2024 End: July 04, 2024 Kyrie Lozano FAMILY RESOURCE MANAGEMENT SPECIALIST, FAMILY RESOURCE MANAGEMENT SPECIALIST-C Referring Provider Ac tive Start: July 04, 2024 End: July 04, 2024 Dr. Mahad Villatoro DO Attending Provider Active Start: July 04, 2024 End: July 04, 2024 Team Status: Inactive Member Role Status Dates Kyrie Lozano FAMILY RESOURCE MANAGEMENT SPECIALIST, FAMILY RESOURCE MANAGEMENT SPECIALIST-C Primary Care Provider Active Start: July 08, 2024 End: July 08, 2024 Kyrie Lozano FAMILY RESOURCE MANAGEMENT SPECIALIST, FAMILY RESOURCE MANAGEMENT SPECIALIST-C Referring Provider Ac tive Start: July 08, 2024 End: July 08, 2024 Dr. Donyn Martinez MD Attending Provider Active S tart: July 08, 2024 End: July 08, 2024 Team Status: Inactive Member Role Status Dates Kyrie Lozano FAMILY RESOURCE MANAGEMENT SPECIALIST, FAMILY RESOURCE MANAGEMENT SPECIALIST-C Primary Care Provider Active Start: July 11, 2024 End: July 11, 2024 Kyrie Lozano FAMILY RESOURCE MANAGEMENT SPECIALIST, FAMILY RESOURCE MANAGEMENT SPECIALIST-C Referring Provider Ac tive Start: July 11, 2024 End: July 11, 2024 Dr. Mahad Villatoro DO Attending Provider Active Start: July 11, 2024 End: July 11, 2024 Team Status: Inactive Member Role Status Dates Kyrie Lozano FAMILY RESOURCE MANAGEMENT SPECIALIST, FAMILY RESOURCE MANAGEMENT SPECIALIST-C Primary Care Provider Active Start: July 15, 2024 End: July 15, 2024 Kyrie Lozano FAMILY RESOURCE MANAGEMENT SPECIALIST, FAMILY RESOURCE MANAGEMENT SPECIALIST-C Referring Provider Ac tive Start: July 15, 2024 End: July 15, 2024 Dr. Donny Martinez MD Attending Provider Active S tart: July 15, 2024 End: July 15, 2024 Team Status: Inactive Member Role Status Dates Kyrie Lozano FAMILY RESOURCE MANAGEMENT SPECIALIST, FAMILY RESOURCE MANAGEMENT SPECIALIST-C Primary Care Provider Active Start: July 16, 2024 End: July 16, 2024 Kyrie Lozano FAMILY RESOURCE MANAGEMENT SPECIALIST, FAMILY RESOURCE MANAGEMENT SPECIALIST-C Referring Provider Ac tive Start: July 16, 2024 End: July 16, 2024 Dr. Mahad Villatoro DO Attending Provider Active Start: July 16, 2024 End: July 16, 2024 Team Status: Active Member Role Status Dates Kyrie Lozano FAMILY RESOURCE MANAGEMENT SPECIALIST, FAMILY RESOURCE MANAGEMENT SPECIALIST-C Primary Care Provider Active Start: July 16, 2024 Dr. Donny Martinez MD Attending Provider Active S tart: July 16, 2024 Dr. Donny Martinez MD Referring Provider Active S tart: July 16, 2024 Team Status: Active Member Role Status Dates Kyrie Lozano FAMILY RESOURCE MANAGEMENT SPECIALIST, FAMILY RESOURCE MANAGEMENT SPECIALIST-C Primary Care Provider Active Start: July 16, 2024 Dr. Mahad Villatoro DO Attending Provider Active Start: July 16, 2024 Team Status: Inactive Member Role Status Dates Kyrie Lozano FAMILY RESOURCE MANAGEMENT SPECIALIST, FAMILY RESOURCE MANAGEMENT SPECIALIST-C Primary Care Provider Active Start: July 24, 2024 End: July 24, 2024 Dr. Jayson Bartlett DO Emergency Provider Active Start: July 24, 2024 End: July 24, 2024 Team Status: Active Member Role/Relationship Status Dates Kyrie Lozano FAMILY RESOURCE MANAGEMENT SPECIALIST, FAMILY RESOURCE MANAGEMENT SPECIALIST-C Primary Care Provider Active Team Status: Inactive Member Role/Relationship Status Dates Kyrie Lozano FAMILY RESOURCE MANAGEMENT SPECIALIST, FAMILY RESOURCE MANAGEMENT SPECIALIST-C Primary Care Provider Active Start: July 08, 2024 End: July 08, 2024 Kyrie Lozano FAMILY RESOURCE MANAGEMENT SPECIALIST, FAMILY RESOURCE MANAGEMENT SPECIALIST-C Referring Provider Ac tive Start: July 08, 2024 End: July 08, 2024 Dr. Donny Martinez MD Attending Provider Active S tart: July 08, 2024 End: July 08, 2024 Team Status: Inactive Member Role/Relationship Status Dates Kyrie Lozano FAMILY RESOURCE MANAGEMENT SPECIALIST, FAMILY RESOURCE MANAGEMENT SPECIALIST-C Primary Care Provider Active Start: July 11, 2024 End: July 11, 2024 Dr. Mahad Villatoro DO Attending Provider Active Start: July 11, 2024 End: July 11, 2024 Dr. Mahad Villatoro DO Referring Provider Active Start: July 11, 2024 End: July 11, 2024 Team Status: Inactive Member Role/Relationship Status Dates Kyrie Lozano FAMILY RESOURCE MANAGEMENT SPECIALIST, FAMILY RESOURCE MANAGEMENT SPECIALIST-C Primary Care Provider Active Start: July 15, 2024 End: July 15, 2024 Kyrie Lozano FAMILY RESOURCE MANAGEMENT SPECIALIST, FAMILY RESOURCE MANAGEMENT SPECIALIST-C Referring Provider Ac tive Start: July 15, 2024 End: July 15, 2024 Dr. Donny Martinez MD Attending Provider Active S tart: July 15, 2024 End: July 15, 2024 Team Status: Inactive Member Role/Relationship Status Dates Kyrie Lozano FAMILY RESOURCE MANAGEMENT SPECIALIST, FAMILY RESOURCE MANAGEMENT SPECIALIST-C Primary Care Provider Active Start: July 16, 2024 End: July 16, 2024 Dr. Mahad Villatoro DO Attending Provider Active Start: July 16, 2024 End: July 16, 2024 Dr. Mahad Villatoro DO Referring Provider Active Start: July 16, 2024 End: July 16, 2024 Team Status: Active Member Role/Relationship Status Dates Kyrie Lozano FAMILY RESOURCE MANAGEMENT SPECIALIST, FAMILY RESOURCE MANAGEMENT SPECIALIST-C Primary Care Provider Active Start: July 16, 2024 Dr. Mahad Villatoro DO Attending Provider Active Start: July 16, 2024 Team Status: Inactive Member Role/Relationship Status Dates Kyrie Lozano FAMILY RESOURCE MANAGEMENT SPECIALIST, FAMILY RESOURCE MANAGEMENT SPECIALIST-C Primary Care Provider Active Start: July 24, 2024 End: July 24, 2024 Dr. Jayson Bartlett DO Attending Provider Active Start: July 24, 2024 End: July 24, 2024 Dr. Jayson Bartlett DO Emergency Provider Active Start: July 24, 2024 End: July 24, 2024 Team Status: Inactive Member Role/Relationship Status Dates Kyrie Lozano FAMILY RESOURCE MANAGEMENT SPECIALIST, FAMILY RESOURCE MANAGEMENT SPECIALIST-C Primary Care Provider Active Start: August 12, 2024 End: August 12, 2024 Kyrie Lozano FAMILY RESOURCE MANAGEMENT SPECIALIST, FAMILY RESOURCE MANAGEMENT SPECIALIST-C Referring Provider Ac tive Start: August 12, 2024 End: August 12, 2024 Dr. Mahad Villatoro DO Attending Provider Active Start: August 12, 2024 End: August 12, 2024 Team Status: Active Member Role/Relationship Status Dates Kyrie Lozano FAMILY RESOURCE MANAGEMENT SPECIALIST, FAMILY RESOURCE MANAGEMENT SPECIALIST-C Primary Care Provider Active Start: October 30, 2024 Dr. Donny Martinez MD Attending Provider Active S tart: October 30, 2024 Dr. Donny Martinez MD Referring Provider Active S tart: October 30, 2024 Team Status: Inactive Member Role/Relationship Status Dates Kyrie Lozano FAMILY RESOURCE MANAGEMENT SPECIALIST, FAMILY RESOURCE MANAGEMENT SPECIALIST-C Primary Care Provider Active Start: October 30, 2024 End: October 30, 2024 Dr. Donny Martienz MD Attending Provider Active S tart: October 30, 2024 End: October 30, 2024 Dr. Donny Martinez MD Referring Provider Active S tart: October 30, 2024 End: October 30, 2024 Team Status: Inactive Member Role/Relationship Status Dates Kyrie Lozano FAMILY RESOURCE MANAGEMENT SPECIALIST, FAMILY RESOURCE MANAGEMENT SPECIALIST-C Primary Care Provider Active Start: July 11, 2024 End: July 11, 2024 Dr. Mahad Villaotro DO Attending Provider Active Start: July 11, 2024 End: July 11, 2024 Dr. Mahad Villatoro DO Referring Provider Active Start: July 11, 2024 End: July 11, 2024 Team Status: Inactive Member Role/Relationship Status Dates Kyrie Lozano FAMILY RESOURCE MANAGEMENT SPECIALIST, FAMILY RESOURCE MANAGEMENT SPECIALIST-C Primary Care Provider Active Start: July 15, 2024 End: July 15, 2024 Kyrie Lozano FAMILY RESOURCE MANAGEMENT SPECIALIST, FAMILY RESOURCE MANAGEMENT SPECIALIST-C Referring Provider Ac tive Start: July 15, 2024 End: July 15, 2024 Dr. Donny Martinez MD Attending Provider Active S tart: July 15, 2024 End: July 15, 2024 Team Status: Inactive Member Role/Relationship Status Dates Kyrie Lozano FAMILY RESOURCE MANAGEMENT SPECIALIST, FAMILY RESOURCE MANAGEMENT SPECIALIST-C Primary Care Provider Active Start: July 16, 2024 End: July 16, 2024 Dr. Mahad Villatoro DO Attending Provider Active Start: July 16, 2024 End: July 16, 2024 Dr. Mahad Villatoro DO Referring Provider Active Start: July 16, 2024 End: July 16, 2024 Team Status: Active Member Role/Relationship Status Dates Kyrie Lozano FAMILY RESOURCE MANAGEMENT SPECIALIST, FAMILY RESOURCE MANAGEMENT SPECIALIST-C Primary Care Provider Active Start: July 16, 2024 Dr. Mahad Villatoro DO Attending Provider Active Start: July 16, 2024 Team Status: Inactive Member Role/Relationship Status Dates Kyrie Lozano FAMILY RESOURCE MANAGEMENT SPECIALIST, FAMILY RESOURCE MANAGEMENT SPECIALIST-C Primary Care Provider Active Start: July 24, 2024 End: July 24, 2024 Dr. Jayson Bartlett DO Attending Provider Active Start: July 24, 2024 End: July 24, 2024 Dr. Jayson Bartlett DO Emergency Provider Active Start: July 24, 2024 End: July 24, 2024 Team Status: Inactive Member Role/Relationship Status Dates Kyrie Lozano FAMILY RESOURCE MANAGEMENT SPECIALIST, FAMILY RESOURCE MANAGEMENT SPECIALIST-C Primary Care Provider Active Start: August 12, 2024 End: August 12, 2024 Kyrie Lozano FAMILY RESOURCE MANAGEMENT SPECIALIST, FAMILY RESOURCE MANAGEMENT SPECIALIST-C Referring Provider Ac tive Start: August 12, 2024 End: August 12, 2024 Dr. Mahad Villatoro DO Attending Provider Active Start: August 12, 2024 End: August 12, 2024 Team Status: Active Member Role/Relationship Status Dates Kyrie Lozano FAMILY RESOURCE MANAGEMENT SPECIALIST, FAMILY RESOURCE MANAGEMENT SPECIALIST-C Primary Care Provider Active Start: October 30, 2024 Dr. Donny Martinez MD Attending Provider Active S tart: October 30, 2024 Dr. Donny Martinez MD Referring Provider Active S tart: October 30, 2024 Team Status: Inactive Member Role/Relationship Status Dates Kyrie Lozano FAMILY RESOURCE MANAGEMENT SPECIALIST, FAMILY RESOURCE MANAGEMENT SPECIALIST-C Primary Care Provider Active Start: October 30, 2024 End: October 30, 2024 Dr. Donny Martinez MD Attending Provider Active S tart: October 30, 2024 End: October 30, 2024 Dr. Donny Martinez MD Referring Provider Active S tart: October 30, 2024 End: October 30, 2024 Team Status: Inactive Member Role/Relationship Status Dates Kyrie Lozano FAMILY RESOURCE MANAGEMENT SPECIALIST, FAMILY RESOURCE MANAGEMENT SPECIALIST-C Primary Care Provider Active Start: November 07, 2024 End: November 07, 2024 Kyrie Lozano FAMILY RESOURCE MANAGEMENT SPECIALIST, FAMILY RESOURCE MANAGEMENT SPECIALIST-C Referring Provider Ac tive Start: November 07, 2024 End: November 07, 2024 Dr. Mahad Villatoro DO Attending Provider Active Start: November 07, 2024 End: November 07, 2024 Team Status: Active Member Role/Relationship Status Dates Kyrie Lozano FAMILY RESOURCE MANAGEMENT SPECIALIST, FAMILY RESOURCE MANAGEMENT SPECIALIST-C Primary Care Provider Active Start: November 07, 2024 Kyrie Lozano FAMILY RESOURCE MANAGEMENT SPECIALIST, FAMILY RESOURCE MANAGEMENT SPECIALIST-C Referring Provider Ac tive Start: November 07, 2024 Dr. Donny Martinez MD Attending Provider Active S tart: November 07, 2024 Team Status: Inactive Member Role/Relationship Status Dates Kyrie Lozano FAMILY RESOURCE MANAGEMENT SPECIALIST, FAMILY RESOURCE MANAGEMENT SPECIALIST-C Primary Care Provider Active Start: October 30, 2024 End: October 30, 2024 Dr. Donny Martinez MD Attending Provider Active S tart: October 30, 2024 End: October 30, 2024 Dr. Donny Martinez MD Referring Provider Active S tart: October 30, 2024 End: October 30, 2024 Team Status: Inactive Member Role/Relationship Status Dates Kyrie Lozano FAMILY RESOURCE MANAGEMENT SPECIALIST, FAMILY RESOURCE MANAGEMENT SPECIALIST-C Primary Care Provider Active Start: November 07, 2024 End: November 07, 2024 Kyrie Lozano FAMILY RESOURCE MANAGEMENT SPECIALIST, FAMILY RESOURCE MANAGEMENT SPECIALIST-C Referring Provider Ac tive Start: November 07, 2024 End: November 07, 2024 Dr. Mahad Villatoro DO Attending Provider Active Start: November 07, 2024 End: November 07, 2024 Team Status: Inactive Member Role/Relationship Status Dates Kyrie Lozano FAMILY RESOURCE MANAGEMENT SPECIALIST, FAMILY RESOURCE MANAGEMENT SPECIALIST-C Primary Care Provider Active Start: November 07, 2024 End: November 07, 2024 Kyrie Lozano FAMILY RESOURCE MANAGEMENT SPECIALIST, FAMILY RESOURCE MANAGEMENT SPECIALIST-C Referring Provider Ac tive Start: November 07, 2024 End: November 07, 2024 Dr. Donny Martinez MD Attending Provider Active S tart: November 07, 2024 End: November 07, 2024 Team Status: Inactive Member Role/Relationship Status Dates Kyrie Lozano FAMILY RESOURCE MANAGEMENT SPECIALIST, FAMILY RESOURCE MANAGEMENT SPECIALIST-C Primary Care Provider Active Start: October 30, 2024 End: October 30, 2024 Dr. Donny Martinez MD Attending Provider Active S tart: October 30, 2024 End: October 30, 2024 Dr. Donny Martinez MD Referring Provider Active S tart: October 30, 2024 End: October 30, 2024 Team Status: Inactive Member Role/Relationship Status Dates Kyrie oLzano FAMILY RESOURCE MANAGEMENT SPECIALIST, FAMILY RESOURCE MANAGEMENT SPECIALIST-C Primary Care Provider Active Start: November 07, 2024 End: November 07, 2024 Kyrie Lozano FAMILY RESOURCE MANAGEMENT SPECIALIST, FAMILY RESOURCE MANAGEMENT SPECIALIST-C Referring Provider Ac tive Start: November 07, 2024 End: November 07, 2024 Dr. Mahad Villatoro DO Attending Provider Active Start: November 07, 2024 End: November 07, 2024 Team Status: Inactive Member Role/Relationship Status Dates Kyrie Lozano FAMILY RESOURCE MANAGEMENT SPECIALIST, FAMILY RESOURCE MANAGEMENT SPECIALIST-C Primary Care Provider Active Start: November 07, 2024 End: November 07, 2024 Kyrie Lozano FAMILY RESOURCE MANAGEMENT SPECIALIST, FAMILY RESOURCE MANAGEMENT SPECIALIST-C Referring Provider Ac tive Start: November 07, 2024 End: November 07, 2024 Dr. Donny Martinez MD Attending Provider Active S tart: November 07, 2024 End: November 07, 2024 Team Status: Active Member Role/Relationship Status Dates Kyrie Lozano FAMILY RESOURCE MANAGEMENT SPECIALIST, FAMILY RESOURCE MANAGEMENT SPECIALIST-C Primary Care Provider Active Start: November 07, 2024 Dr. Donny Martinez MD Attending Provider Active S tart: November 07, 2024 Dr. Donny Martinez MD Referring Provider Active S tart: November 07, 2024 Team Status: Inactive Member Role/Relationship Status Dates Kyrie Lozano FAMILY RESOURCE MANAGEMENT SPECIALIST, FAMILY RESOURCE MANAGEMENT SPECIALIST-C Primary Care Provider Active Start: November End: December 13, 2024 Dr. Pankaj Lou MD Attending Provider Active Start: December 13, 2024 End: December 13, 2024 Dr. Pankaj Lou MD Referring Provider Active Start: December 13, 2024 End: December 13, 2024 Team Status: Active Member Role/Relationship Status Dates Kyrie Lozano FAMILY RESOURCE MANAGEMENT SPECIALIST, FAMILY RESOURCE MANAGEMENT SPECIALIST-C Primary Care Provider Active Start: November Simba Muller MD Emergency Provider Active Star t: December 14, 2024 Dr. Pankaj Lou MD Attending Provider Active Start: December 14, 2024 Dr. Pankja Lou MD Referring Provider Active Start: December 14, 2024 Team Status: Inactive Member Role/Relationship Status Dates Kyrie Lozano FAMILY RESOURCE MANAGEMENT SPECIALIST, FAMILY RESOURCE MANAGEMENT SPECIALIST-C Primary Care Provider Active Start: November End: December 17, 2024 Simba Muller MD Emergency Provider Active Star t: December 14, 2024 End: December 17, 2024 Dr. Pankaj Lou MD Admit Provider Active Start: December 14, 2024 End: December 17, 2024 Dr. Pankaj Lou MD Attending Provider Active Start: December 14, 2024 End: December 17, 2024 Dr. Pankaj Lou MD Referring Provider Active Start: December 14, 2024 End: December 17, 2024 (unrecognized sect ion and content) No Status Records FoundNo Status Records FoundNo Status Records FoundNo Status Records Found INFORMATION SOURCE (unrecogn ized section and content) DATE CREATED AUTHOR 10/15/2023 [facility] ([place]) DATE CREATED AUTHOR AUTHOR'S ORGANIZ ATION 02/10/2024 [facility] DATE CREATED AUTHOR AUTHOR'S ORGANIZ ATION 06/15/2024 [facility] DATE CREATED AUTHOR AUTHOR'S ORGANIZ ATION 02/01/2025 [facility] Source Comments (unrecognize d section and content) In the event this informatio n is protected by the Federal Confidentiality of Alcohol and Drug Abuse Patient Records regulations: The Federal rules restrict any use of the information to criminally investigate or prosecute any alcohol or drug abuse patient.[facility] the event this information is protected by the Federal Confidentiality of Alcohol and Drug Abuse Patient Records regulations: The Federal rules restrict any use of the information to criminally investigate or prosecute any alcohol or drug abuse patient.[facility] the event this information is protected by the Federal Confidentiality of Alcohol and Drug Abuse Patient Records regulations: The Federal rules restrict any use of the information to criminally investigate or prosecute any alcohol or drug abuse patient.[facility] Reason for Visit (unrecogniz ed section and [...] BE BASED ON THE PRIMARY CLINICAL RECORDS. [employer] provides no warranty or guarantee of the accuracy or completeness of information in this document.
--- NOTE | 2025-02-03 07:20 | CT_ITS ---
PROCEDURE: CT CHEST, ABD, PEL W/CONTRAST 02/03/2025 REASON FOR EXAM: FOLLOW UP TREATED BLADDER CANCER TECHNIQUE: Chest, abdomen and pelvis CT with intravenous contrast. Coronal and Sagittal reconstruction series were provided. One or more dose reduction techniques were used (e.g., Automated exposure control, adjustment of the mA and/or kV according to patient size, use of iterative reconstruction technique. PATIENT PREPARATION: Per protocol CONTRAST: Isovue 370 VOLUME: 100mL RADIATION DOSE SUMMARY: DLP: 1107.18 mGycm COMPARISON: CT of the abdomen and pelvis dated 12/14/2024 and 10/30/2024 FINDINGS: CT CHEST: Hardware: MediPort through right jugular approach with the tip in the superior vena cava small shotty mediastinal lymph Lymph nodes: Nodes not pathologically enlarged by size criteria. Heart and Vasculature: Minimal coronary artery calcifications.. Ectasia of the ascending aorta measuring 38 mm. The descending aorta is of normal caliber. Calcifications of the aortic leaflets present. No pericardial effusion. Lungs and Airways: Calcified granuloma in the left lower lobe. No suspicious pulmonary nodule or mass. Patent airway. No endobronchial lesion. No focal consolidation. Pleura: No effusion or pneumothorax. Bones: No destructive process. Multilevel degenerative disc disease. CT ABDOMEN/PELVIS: Liver: Normal appearance of the liver. No mass. Patent portal and hepatic veins. Gallbladder: Normal gallbladder Spleen: Normal Pancreas: Normal appearance of the pancreas Adrenals: Normal Kidneys: Mild left hydronephrosis and left hydroureter with thickened of the left ureter to the level of the left ureterovesicular junction with associated bladder wall thickening. Normal right kidney and right ureter. Bladder: There is thickening of the bladder wall superiorly spanning 3.5 by 1 cm. Also noted is thickening of the posterior left bladder wall spanning 4 x 0.7 cm which affects the left ureterovesicular junction. This is associated with sutures/calcifications. Reproductive Organs: Normal prostate gland and seminal vesicles. Bowel: Moderate amount of stool in the colon. No obstructive pattern. Normal loops of small bowel. Appendix: Normal Lymph nodes: No retroperitoneal lymphadenopathy. Vasculature: Atherosclerosis of the aorta without aneurysm Peritoneum / Retroperitoneum: No ascites or peritoneal implant Bones: Multilevel degenerative disc disease with grade 1 anterolisthesis of L5 on S1 with bilateral foraminal stenosis. CT/CT Chest, Abd, Pel w/Contrast IMPRESSION: No evidence of metastatic disease in the chest abdomen or pelvis. Persistent bladder wall thickening at the left bladder base and left ureteroves icular junction with mild associated left hydroureter and hydronephrosis. Mild persistent bladder wall calcifications id entified. No lymphadenopathy. Reading Location: [id number]
== END | disposition home or self-care (01) ==
PROVIDERS: PCP Nurse Practitioner Family; Referring Provider Student in an Organized Health Care Education/Training Program; Visit Provider Student in an Organized Health Care Education/Training Program
DX: Z08 Encounter for follow-up examination after completed treatment for malignant neoplasm (principal); Z85.51 Personal history of malignant neoplasm of bladder
CPT/HCPCS: 71260; 74177; Q9967